=== PATIENT | male | born 1965 | race Caucasian/White ===

== ENCOUNTER 2020-06-25 17:32 | Outpatient (REF) | payer MEDICAID, SELFPAY | END 2020-06-25 17:33 | disposition home or self-care (01) | LOC: HO.LAB 17:32 | PROVIDERS: Visit Provider Internal Medicine | DX: Z20.828 Contact with and (suspected) exposure to other viral communicable diseases (principal) | CPT/HCPCS: C9803; U0003 ==

== ENCOUNTER 2021-01-09 12:20 | Inpatient (IN) | payer MEDICAID, SELFPAY ==
[2021-01-09] VITALS (11 sets, daily range): BP systolic 90–136; BP diastolic 52–78; PULSE 75–150; RESP 16–20; TEMP 36.9–37.1; O2SAT 94–98; BMI 28.7
--- NOTE | ~2021-01-09 | CT_ITS ---
EXAMINATION: CT HEAD WITHOUT CONTRAST CLINICAL INFORMATION: Clinical the posterior liver disease. Evaluate for hemorrhage. COMPARISON: Previous head CT most recent September 2019 TECHNIQUE: Contiguous axial imaging was performed from the skull base to vertex without intravenous administration of contrast. This CT examination was performed using dose optimization techniques as appropriate, variously including the following: *Automated exposure control *Adjustment of mA and/or kV according to patient size (this includes techniques or standardized protocols for targeted exams where dose is matched to indication/reason for exam; i.e. extremities or head) *Use of iterative reconstruction technique DLP: 7-8 mGy-cm FINDINGS: There is no evidence of acute intracranial hemorrhage or territorial infarction. No abnormal mass effect or midline shift is seen. Ly to white matter differentiation is well preserved. No extra-axial fluid collections are identified. The ventricles are normal in size. There is no abnormal attenuation within the brain parenchyma. The osseous structures are normal. There is mild inflammatory change seen in sphenoid sinus. The mastoid air cells and visualized portions of the paranasal sinuses are otherwise clear. There is soft tissue swelling adjacent to the left posterior parietal bone.. CT/CT head/brain wo con IMPRESSION: No acute intracranial findings. Soft tissue swelling adjacent to the left posterior parietal bone and mild inflammatory changes in the sphenoid sinus.
--- NOTE | ~2021-01-09 | CT_ITS ---
EXAMINATION: CT ABDOMEN AND PELVIS WITH CONTRAST CLINICAL INFORMATION: Painless jaundice. Rule out common bile duct obstruction versus mass COMPARISON: November 03, 2016 TECHNIQUE: Multidetector volumetric images were obtained from the superior aspect of the liver through the pubic symphysis following administration 85 mL of Omnipaque 350 intravenous contrast. Sagittal and coronal reformatted images were obtained on the technologist's workstation. Oral contrast: No This CT examination was performed using dose optimization techniques as appropriate, variously including the following: *Automated exposure control *Adjustment of mA and/or kV according to patient size (this includes techniques or standardized protocols for targeted exams where dose is matched to indication/reason for exam; i.e. extremities or head) *Use of iterative reconstruction technique DLP: 668 mGy-cm FINDINGS: LUNG BASES: There is some linear scar right lower lobe. No pleural or pericardial effusion. Heart normal size. Coronary artery calcification present. LIVER, GALLBLADDER, AND BILIARY TREE: The liver is normal in size, shape, and attenuation. No focal hepatic lesion or biliary ductal dilatation is present. There is gallbladder wall thickening with pericholecystic haziness within the fat. No definite gallbladder calculi identified. No radiopaque density within the common bile duct is seen. The common bile duct is not dilated distally. PANCREAS: There has been fatty involution of the pancreas. No suspicious pancreatic mass is identified. No pancreatic duct dilatation. SPLEEN: Unremarkable. ADRENAL GLANDS: Unremarkable. KIDNEYS AND URETERS: There are bilateral renal cysts largest within the upper pole of the left kidney measuring 2.2 cm in diameter. No renal calculi identified. Ureters appear unremarkable without evidence of obstructive uropathy. No suspicious focal mass is seen. There is mild perinephric stranding. BLADDER: Unremarkable. GASTROINTESTINAL TRACT: No free air identified. There is a small amount of free fluid seen in the cul-de-sac. No dilated loops of large or small bowel are evident. There is left colonic diverticulosis without evidence of acute diverticulitis. No pericolonic inflammatory changes appreciated. The appendix appears unremarkable. ABDOMINAL WALL: No significant hernia is appreciated. LYMPH NODES: No lymphadenopathy appreciated. VASCULAR: Unremarkable. PELVIC VISCERA: Small amount of free pelvic fluid. Prominent prostate gland with calcifications. OSSEOUS STRUCTURES: No suspicious destructive bony lesions identified. Old posterior fracture of the right 11th rib is seen. Multilevel degenerative disc disease is present. There is a superior endplate compression fracture without significant loss of height involving the T12 vertebral body. There is degenerative change of the sacroiliac joints bilaterally. CT/CT abdomen pelvis w con IMPRESSION: Findings consistent with acute cholecystitis. No common bile duct dilatation and no pancreatic head mass appreciated.
--- NOTE | 2021-01-09 13:00 | ED.GENADULT ---
HPI - General Adult General Chief complaint: General Medical Stated complaint: Unspecified Jaundice Time Seen by Provider: 01/09/21 12:36 Source: patient Mode of arrival: ambulatory Limitations: no limitations History of Present Illness HPI narrative: 55-year-old male with a past medical history of hypertension here with complaints of yellowing of the skin. The patient noted Wednesday morning when he woke up that his skin appeared yellow. He tells me he has also had dark urine. He has been hydrating at home thinking this would improve his jaundice. He went to urgent care today due to persistent symptoms and was referred to the emergency department. He denies any abdominal pain, vomiting, fevers, chills. He does drink socially 2-3 martinis on the weekends. He does not drink during the week normally. No substance use. No IV drug abuse. No a Tylenol use. No recent travel or recent illness. No sick contact. Related Data Home Medications Medication Instructions Recorded Confirmed ascorbic [id number] 1 ea PO DAILY 01/09/21 01/09/21 [Emergen-C] Allergies Allergy/AdvReac Type Severity Reaction Status Date / Time No Known Allergies Allergy Verified 01/09/21 12:30 [No Known Allergies*] Review of Systems Review of Systems: Yes all other systems are reviewed and are negative Constitutional: Constitutional: Reports no additional constitutional complaints, Denies body ache(s), Denies chills, Denies fever(s), Denies headache(s) and Denies weakness Eyes: Eyes: Reports no additional eye complaints and Denies change in vision ENT: Reports system reviewed and no additional complaints, except as documented, Denies dizziness, Denies headache(s), Denies nasal congestion, Denies nasal discharge and Denies neck pain Cardiovascular: Cardiovascular: Reports no additional cardiovascular complaints, Denies chest pain, Denies leg edema and Denies dyspnea Respiratory: Respiratory: Reports no additional respiratory complaints, Denies cough and Denies dyspnea Gastrointestinal: Gastrointestinal: Reports no additional gastrointestinal complaints, Denies abdominal pain, Denies diarrhea, Denies nausea and Denies vomiting Genitourinary: Genitourinary: Denies urinary incontinence Musculoskeletal: Musculoskeletal: Reports no additional musculoskeletal complaints, Denies back pain, Denies arthralgias, Denies joint swelling, Denies neck pain, Denies numbness and Denies tingling Integumentary/Breasts: Skin/Breast: Reports system reviewed and no additional complaints, except as docu, Denies rash and Reports jaundice Neurologic: Reports system reviewed and no additional complaints, except as documented, Denies Abnormal speech present, Denies dizziness, Denies headache(s), Denies numbness, Denies tingling and Denies weakness PMFSH Past Medical History Attestation statement: The following information was validated with the patient. Source: old records reviewed and nursing notes reviewed Medical History (Updated 01/09/21 @ 20:57 by Danuta Scott NP) HTN (hypertension) Jaundice Social History Social History Alcohol intake: current Alcohol intake frequency: 0-2 drinks per day Alcohol type: beer, wine, hard liquor and other Patient Tobacco Use Status: Never used Tobacco Smoked in Last 30 Days: No Use of substances other than those prescribed or required for medical reasons: No Advance Directives: No Advance Directives Information Provided: No Physical Exam Vital Signs: Vital Signs: Last Vital Signs Temp 98.5 F 01/09/21 16:43 Pulse 147 H 01/09/21 17:42 Resp 17 01/09/21 17:42 BP 107/65 01/09/21 20:02 Pulse Ox 97 01/09/21 17:42 Body Mass Index 28.7 Const: General: cooperative, healthy appearing, comfortable and no acute distress Orientation/consciousness: patient oriented x3 Limitations: no limitations HENMT: Head: Yes normal to inspection Ears: hearing grossly normal bilaterally General nose exam: Normal external nose present Face and sinus: Yes normal facial exam Mouth: Normal oral and palatal mucosa present Throat: Yes posterior oropharynx normal Eyes: Other: Left pupil 4mm Right pupill 3mm Reactive General: appearance normal, both eyes and all related structures Visual Beltre: normal visual beltre by confrontation Alignment and Position: alignment normal Periorbital: periorbital findings normal Eyelids: Yes eyelids normal Sclerae: scleral abnormal (icterus bilaterally ) Corneas: corneas normal EOM: EOMs intact bilaterally Direct Ophthalmoscopy: normal light reflex Neck: Neck: Yes normal visual inspection Chest: Chest palpation & inspection: normal inspection of the chest Resp: Effort & Inspection: normal respiratory effort Auscultation: clear to auscultation bilaterally Cardio: Rate: regular rate Rhythm: regular rhythm Peripheral pulses: Peripheral pulses 2+ throughout GI: Inspection: Yes normal to inspection Palpation (GI): Soft to palpation and nontender Auscultation: normal bowel sounds Back/Spine/Pelvis: Thoracic/Lumbar Spine: thoracic and lumbar spine normal to inspection Skin: General skin exam: jaundice Neuro: General: patient oriented x3, no focal motor deficits and normal sensation to monofilament Cognition (Neuro): normal cognition Speech: No Abnormal speech present Gait exam (Neuro): Normal gait present Motor exam (neuro): 5/5 motor strength present throughout Extrem: General: Yes normal to inspection Course Course Course Narrative: 55-year-old male here with painless jaundice x several days. On arrival the patient has scleral icterus and jaundice skin. No abdominal pain. He also has unequal pupils. He denies any headache with normal neurological exam. Will need labs, UA, COVID screen, CT A/P, CT head. 1530- labs show mild microcytic anemia, thrombocytopenia, hyponatremia, hypochloremia, elevated lactic acid, acute liver failure with a total bilirubin of 29.1 and a direct bilirubin of 20.4 with ammonia of 58. added on serum osmolality, urine osmolality and lytes. Patient tells me he has been drinking liters of fluid this week as he thought this would improve his jaundice appearance. Likely hypervolemic hyponatremia. CT of abdomen shows acute cholecystitis. No common bile duct dilation and no pancreatic mass appreciated. Discussed with Dr. Blackmon who does not think this is acute cholecystitis as patient has no pain. Recommended d/w with GI. Call out to discuss with Dr Rome. 1545- patient is tachycardic with no fever. He has a mild tremor but no hypertension or other symptoms concerning for alcohol withdrawal. Check EKG. 1600- EKG shows sinus tachycardia with a rate of 147. Unable to visualize P-waves in all leads. ?atrial flutter. Blood pressure is stable. Attempted vagal maneuvers with no success. Will give 10 mg IV Cardizem and reassess. 1630- continued tachycardia with rates up to 150. Discussed with Dr. Irvin. Plan for repeat 10 mg IV Cardizem. 1700- continued tachycardia. Repeat EKG does show atrial flutter with a variable AV block with heart rate 133. patient did have a single blood pressure of 93/60. He received a 500 mL normal saline bolus and a repeat dose of 10 mg of IV Cardizem was ordered. Will start Cardizem drip and monitor. 1800-Discussed patient with Dr. Rome. Likely alcoholic hepatitis. Recommended obtaining an MRI of the abdomen on admission. Pending admission to medicine service. 1899-Persistent a-flutter with rates 140-150's on monitoring tech. patient asymptomatic. stable blood pressure. currently on 15 milligrams/hour of Cardizem. Discussed with Dr. Rojas. Recommended continuing Cardizem. Does not recommend any additional agents. 1919-Discussed with Dr Rosas from medicine service who accepted patient. Maintenance fluids ordered. K PO replacement ordered. D/t multiple system involvement with tachycardia at this time infection cannot be ruled out. Blood cultures and lactic acid have been completed. Will order empiric antibiotics. Medical Decision Making Medical Records Medical records reviewed: Yes I reviewed the patient's medical records. Lab Data Lab results reviewed: Yes I reviewed the patient's lab results. Result diagrams: 01/09/21 13:47 01/09/21 16:54 Labs: Lab Results 01/09/21 01/09/21 01/09/21 Range/Units 13:47 13:47 13:47 WBC 8.0 (4.8-10.8) X10*3/uL RBC 3.60 L (4.60-5.80) X10*6/uL Hgb 13.2 L (14.0-18.0) g/dl Hct 37.2 L (42-52) % MCV 103.3 H (80-98) fL MCH 36.7 H (27.0-33.0) pg MCHC 35.5 (31.0-36.0) g/dl RDW 16.4 H (11.0-16.0) % Plt Count 153 L (160-400) X10*3/uL MPV 11.8 (9.4-12.4) fL Immature Gran % (Auto) 2.1 H (0.0-0.4) % Neut % (Auto) 66.9 (45-73) % Lymph % (Auto) 18.7 L (20-40) % [place] % (Auto) 11.5 H (2-11) % Eos % (Auto) 0.3 (0-4) % Baso % (Auto) 0.5 (0-2) % Lymph # (Auto) 1.5 (1.2-4.9) X10*3/uL [place] # (Auto) 0.9 (0.1-1.2) X10*3/uL Eos # (Auto) 0.0 (0.0-0.4) X10*3/uL Baso # (Auto) 0.0 (0.0-0.2) X10*3/uL Abs Immat Gran (auto) 0.17 H (0.00-0.03) X10*3/uL Absolute Neuts (auto) 5.3 (2.0-8.3) X10*3/uL Absolute Nucleated RBC 0.000 (0.0-0.012) X10*3/uL Nucleated RBC % (auto) 0.0 (0.0-0.2) /100WBC PT 13.1 H (9.9-13.0) SEC INR 1.2 H (0.9-1.1) Sodium 128 L (135-145) mmol/L Potassium 3.5 (3.3-5.1) mmol/L Chloride 89 L (96-108) mmol/L Carbon Dioxide 27 (22-29) mmol/L Anion Gap 16 (12-20) BUN 2 L (9-16) mg/dL Creatinine 1.02 (0.5-1.4) mg/dL Estim Creat Clear Calc 94.8 Estimated GFR > 60 Random Glucose 171 H (60-115) mg/dL Osmolality (281-305) mosm/kg Lactic Acid (0.5-2.0) mmol/L Lactic Acid Fup @ 2Hr (0.5-2.0) mmol/L Calcium 8.9 (8.4-10.2) mg/dL Magnesium 1.8 (1.6-2.6) mg/dL Total Bilirubin 29.1 H (0.0-1.0) mg/dL Direct Bilirubin 20.4 H (0.0-0.5) mg/dL AST 246 H (5-37) U/L ALT 65 H (0-40) U/L Alkaline Phosphatase 570 H (39-117) U/L Ammonia (13-55) umol/L Troponin I High Sens (<3.5-35.0) ng/L Total Protein 5.6 L (6.5-8.0) g/dL Albumin 2.8 L (3.5-5.0) g/dL Lipase 14 (8-78) U/L Urine Color Urine Appearance Urine pH (5.0-8.0) Ur Specific [place] (1.005-1.025) Urine Protein (NEG-TRACE) MG/DL Urine Glucose (UA) (NEG) MG/DL Urine Ketones (NEG) MG/DL Urine Blood (NEG) Urine Nitrite (NEG) Ur Leukocyte Esterase (NEG) Urine Osmolality (373-1093) mosm/kg Ur Random Sodium mmol/L Urine Creatinine mg/dL Salicylates (15-30) mg/dL Urine Opiates Screen (Not Detect) Acetaminophen (<30) mcg/mL Ur Barbiturates Screen (Not Detect) Ur Phencyclidine Scrn (Not Detect) Ur Amphetamines Screen (Not Detect) U Benzodiazepines Scrn (Not Detect) Urine Cocaine Screen (Not Detect) U Marijuana (THC) Screen (Not Detect) Ethyl Alcohol mg/dL COVID-19 (GAUTAM) (Negative) COVID-19 Clin Com 01/09/21 01/09/21 01/09/21 Range/Units 13:47 13:47 13:47 WBC (4.8-10.8) X10*3/uL RBC (4.60-5.80) X10*6/uL Hgb (14.0-18.0) g/dl Hct (42-52) % MCV (80-98) fL MCH (27.0-33.0) pg MCHC (31.0-36.0) g/dl RDW (11.0-16.0) % Plt Count (160-400) X10*3/uL MPV (9.4-12.4) fL Immature Gran % (Auto) (0.0-0.4) % Neut % (Auto) (45-73) % Lymph % (Auto) (20-40) % [place] % (Auto) (2-11) % Eos % (Auto) (0-4) % Baso % (Auto) (0-2) % Lymph # (Auto) (1.2-4.9) X10*3/uL [place] # (Auto) (0.1-1.2) X10*3/uL Eos # (Auto) (0.0-0.4) X10*3/uL Baso # (Auto) (0.0-0.2) X10*3/uL Abs Immat Gran (auto) (0.00-0.03) X10*3/uL Absolute Neuts (auto) (2.0-8.3) X10*3/uL Absolute Nucleated RBC (0.0-0.012) X10*3/uL Nucleated RBC % (auto) (0.0-0.2) /100WBC PT (9.9-13.0) SEC INR (0.9-1.1) Sodium (135-145) mmol/L Potassium (3.3-5.1) mmol/L Chloride (96-108) mmol/L Carbon Dioxide (22-29) mmol/L Anion Gap (12-20) BUN (9-16) mg/dL Creatinine (0.5-1.4) mg/dL Estim Creat Clear Calc Estimated GFR Random Glucose (60-115) mg/dL Osmolality (281-305) mosm/kg Lactic Acid 2.8 H* (0.5-2.0) mmol/L Lactic Acid Fup @ 2Hr (0.5-2.0) mmol/L Calcium (8.4-10.2) mg/dL Magnesium (1.6-2.6) mg/dL Total Bilirubin (0.0-1.0) mg/dL Direct Bilirubin (0.0-0.5) mg/dL AST (5-37) U/L ALT (0-40) U/L Alkaline Phosphatase (39-117) U/L Ammonia (13-55) umol/L Troponin I High Sens (<3.5-35.0) ng/L Total Protein (6.5-8.0) g/dL Albumin (3.5-5.0) g/dL Lipase (8-78) U/L Urine Color Urine Appearance Urine pH (5.0-8.0) Ur Specific [place] (1.005-1.025) Urine Protein (NEG-TRACE) MG/DL Urine Glucose (UA) (NEG) MG/DL Urine Ketones (NEG) MG/DL Urine Blood (NEG) Urine Nitrite (NEG) Ur Leukocyte Esterase (NEG) Urine Osmolality (373-1093) mosm/kg Ur Random Sodium mmol/L Urine Creatinine mg/dL Salicylates < 5.0 L (15-30) mg/dL Urine Opiates Screen (Not Detect) Acetaminophen < 1 (<30) mcg/mL Ur Barbiturates Screen (Not Detect) Ur Phencyclidine Scrn (Not Detect) Ur Amphetamines Screen (Not Detect) U Benzodiazepines Scrn (Not Detect) Urine Cocaine Screen (Not Detect) U Marijuana (THC) Screen (Not Detect) Ethyl Alcohol < 10 mg/dL COVID-19 (GAUTAM) (Negative) COVID-19 Clin Com 01/09/21 01/09/21 01/09/21 Range/Units 13:47 13:47 14:04 WBC (4.8-10.8) X10*3/uL RBC (4.60-5.80) X10*6/uL Hgb (14.0-18.0) g/dl Hct (42-52) % MCV (80-98) fL MCH (27.0-33.0) pg MCHC (31.0-36.0) g/dl RDW (11.0-16.0) % Plt Count (160-400) X10*3/uL MPV (9.4-12.4) fL Immature Gran % (Auto) (0.0-0.4) % Neut % (Auto) (45-73) % Lymph % (Auto) (20-40) % [place] % (Auto) (2-11) % Eos % (Auto) (0-4) % Baso % (Auto) (0-2) % Lymph # (Auto) (1.2-4.9) X10*3/uL [place] # (Auto) (0.1-1.2) X10*3/uL Eos # (Auto) (0.0-0.4) X10*3/uL Baso # (Auto) (0.0-0.2) X10*3/uL Abs Immat Gran (auto) (0.00-0.03) X10*3/uL Absolute Neuts (auto) (2.0-8.3) X10*3/uL Absolute Nucleated RBC (0.0-0.012) X10*3/uL Nucleated RBC % (auto) (0.0-0.2) /100WBC PT (9.9-13.0) SEC INR (0.9-1.1) Sodium (135-145) mmol/L Potassium (3.3-5.1) mmol/L Chloride (96-108) mmol/L Carbon Dioxide (22-29) mmol/L Anion Gap (12-20) BUN (9-16) mg/dL Creatinine (0.5-1.4) mg/dL Estim Creat Clear Calc Estimated GFR Random Glucose (60-115) mg/dL Osmolality 278 L (281-305) mosm/kg Lactic Acid (0.5-2.0) mmol/L Lactic Acid Fup @ 2Hr (0.5-2.0) mmol/L Calcium (8.4-10.2) mg/dL Magnesium (1.6-2.6) mg/dL Total Bilirubin (0.0-1.0) mg/dL Direct Bilirubin (0.0-0.5) mg/dL AST (5-37) U/L ALT (0-40) U/L Alkaline Phosphatase (39-117) U/L Ammonia (13-55) umol/L Troponin I High Sens (<3.5-35.0) ng/L Total Protein (6.5-8.0) g/dL Albumin (3.5-5.0) g/dL Lipase (8-78) U/L Urine Color YELLOW Urine Appearance CLEAR Urine pH 6.0 (5.0-8.0) Ur Specific [place] <= 1.005 (1.005-1.025) Urine Protein NEG (NEG-TRACE) MG/DL Urine Glucose (UA) NEG (NEG) MG/DL Urine Ketones NEG (NEG) MG/DL Urine Blood NEG (NEG) Urine Nitrite NEG (NEG) Ur Leukocyte Esterase NEG (NEG) Urine Osmolality (373-1093) mosm/kg Ur Random Sodium mmol/L Urine Creatinine mg/dL Salicylates (15-30) mg/dL Urine Opiates Screen (Not Detect) Acetaminophen (<30) mcg/mL Ur Barbiturates Screen (Not Detect) Ur Phencyclidine Scrn (Not Detect) Ur Amphetamines Screen (Not Detect) U Benzodiazepines Scrn (Not Detect) Urine Cocaine Screen (Not Detect) U Marijuana (THC) Screen (Not Detect) Ethyl Alcohol mg/dL COVID-19 (GAUTAM) Negative (Negative) COVID-19 Clin Com See Note 01/09/21 01/09/21 01/09/21 Range/Units 14:04 14:04 14:04 WBC (4.8-10.8) X10*3/uL RBC (4.60-5.80) X10*6/uL Hgb (14.0-18.0) g/dl Hct (42-52) % MCV (80-98) fL MCH (27.0-33.0) pg MCHC (31.0-36.0) g/dl RDW (11.0-16.0) % Plt Count (160-400) X10*3/uL MPV (9.4-12.4) fL Immature Gran % (Auto) (0.0-0.4) % Neut % (Auto) (45-73) % Lymph % (Auto) (20-40) % [place] % (Auto) (2-11) % Eos % (Auto) (0-4) % Baso % (Auto) (0-2) % Lymph # (Auto) (1.2-4.9) X10*3/uL [place] # (Auto) (0.1-1.2) X10*3/uL Eos # (Auto) (0.0-0.4) X10*3/uL Baso # (Auto) (0.0-0.2) X10*3/uL Abs Immat Gran (auto) (0.00-0.03) X10*3/uL Absolute Neuts (auto) (2.0-8.3) X10*3/uL Absolute Nucleated RBC (0.0-0.012) X10*3/uL Nucleated RBC % (auto) (0.0-0.2) /100WBC PT (9.9-13.0) SEC INR (0.9-1.1) Sodium (135-145) mmol/L Potassium (3.3-5.1) mmol/L Chloride (96-108) mmol/L Carbon Dioxide (22-29) mmol/L Anion Gap (12-20) BUN (9-16) mg/dL Creatinine (0.5-1.4) mg/dL Estim Creat Clear Calc Estimated GFR Random Glucose (60-115) mg/dL Osmolality (281-305) mosm/kg Lactic Acid (0.5-2.0) mmol/L Lactic Acid Fup @ 2Hr (0.5-2.0) mmol/L Calcium (8.4-10.2) mg/dL Magnesium (1.6-2.6) mg/dL Total Bilirubin (0.0-1.0) mg/dL Direct Bilirubin (0.0-0.5) mg/dL AST (5-37) U/L ALT (0-40) U/L Alkaline Phosphatase (39-117) U/L Ammonia (13-55) umol/L Troponin I High Sens (<3.5-35.0) ng/L Total Protein (6.5-8.0) g/dL Albumin (3.5-5.0) g/dL Lipase (8-78) U/L Urine Color Urine Appearance Urine pH (5.0-8.0) Ur Specific [place] (1.005-1.025) Urine Protein (NEG-TRACE) MG/DL Urine Glucose (UA) (NEG) MG/DL Urine Ketones (NEG) MG/DL Urine Blood (NEG) Urine Nitrite (NEG) Ur Leukocyte Esterase (NEG) Urine Osmolality 47 L (373-1093) mosm/kg Ur Random Sodium < 20.0 mmol/L Urine Creatinine 24.52 mg/dL Salicylates (15-30) mg/dL Urine Opiates Screen Not Detected (Not Detect) Acetaminophen (<30) mcg/mL Ur Barbiturates Screen Not Detected (Not Detect) Ur Phencyclidine Scrn Not Detected (Not Detect) Ur Amphetamines Screen Not Detected (Not Detect) U Benzodiazepines Scrn Not Detected (Not Detect) Urine Cocaine Screen Not Detected (Not Detect) U Marijuana (THC) Screen Not Detected (Not Detect) Ethyl Alcohol mg/dL COVID-19 (GAUTAM) (Negative) COVID-19 Clin Com 01/09/21 01/09/21 01/09/21 Range/Units 14:15 16:54 16:54 WBC (4.8-10.8) X10*3/uL RBC (4.60-5.80) X10*6/uL Hgb (14.0-18.0) g/dl Hct (42-52) % MCV (80-98) fL MCH (27.0-33.0) pg MCHC (31.0-36.0) g/dl RDW (11.0-16.0) % Plt Count (160-400) X10*3/uL MPV (9.4-12.4) fL Immature Gran % (Auto) (0.0-0.4) % Neut % (Auto) (45-73) % Lymph % (Auto) (20-40) % [place] % (Auto) (2-11) % Eos % (Auto) (0-4) % Baso % (Auto) (0-2) % Lymph # (Auto) (1.2-4.9) X10*3/uL [place] # (Auto) (0.1-1.2) X10*3/uL Eos # (Auto) (0.0-0.4) X10*3/uL Baso # (Auto) (0.0-0.2) X10*3/uL Abs Immat Gran (auto) (0.00-0.03) X10*3/uL Absolute Neuts (auto) (2.0-8.3) X10*3/uL Absolute Nucleated RBC (0.0-0.012) X10*3/uL Nucleated RBC % (auto) (0.0-0.2) /100WBC PT (9.9-13.0) SEC INR (0.9-1.1) Sodium 130 L (135-145) mmol/L Potassium 3.0 L (3.3-5.1) mmol/L Chloride 95 L (96-108) mmol/L Carbon Dioxide 25 (22-29) mmol/L Anion Gap 13 (12-20) BUN 2 L (9-16) mg/dL Creatinine 0.75 (0.5-1.4) mg/dL Estim Creat Clear Calc 129.0 Estimated GFR > 60 Random Glucose 115 (60-115) mg/dL Osmolality (281-305) mosm/kg Lactic Acid (0.5-2.0) mmol/L Lactic Acid Fup @ 2Hr 1.3 (0.5-2.0) mmol/L Calcium 8.2 L D (8.4-10.2) mg/dL Magnesium (1.6-2.6) mg/dL Total Bilirubin (0.0-1.0) mg/dL Direct Bilirubin (0.0-0.5) mg/dL AST (5-37) U/L ALT (0-40) U/L Alkaline Phosphatase (39-117) U/L Ammonia 58 H (13-55) umol/L Troponin I High Sens (<3.5-35.0) ng/L Total Protein (6.5-8.0) g/dL Albumin (3.5-5.0) g/dL Lipase (8-78) U/L Urine Color Urine Appearance Urine pH (5.0-8.0) Ur Specific [place] (1.005-1.025) Urine Protein (NEG-TRACE) MG/DL Urine Glucose (UA) (NEG) MG/DL Urine Ketones (NEG) MG/DL Urine Blood (NEG) Urine Nitrite (NEG) Ur Leukocyte Esterase (NEG) Urine Osmolality (373-1093) mosm/kg Ur Random Sodium mmol/L Urine Creatinine mg/dL Salicylates (15-30) mg/dL Urine Opiates Screen (Not Detect) Acetaminophen (<30) mcg/mL Ur Barbiturates Screen (Not Detect) Ur Phencyclidine Scrn (Not Detect) Ur Amphetamines Screen (Not Detect) U Benzodiazepines Scrn (Not Detect) Urine Cocaine Screen (Not Detect) U Marijuana (THC) Screen (Not Detect) Ethyl Alcohol mg/dL COVID-19 (GAUTAM) (Negative) COVID-19 Clin Com 01/09/21 Range/Units 16:54 WBC (4.8-10.8) X10*3/uL RBC (4.60-5.80) X10*6/uL Hgb (14.0-18.0) g/dl Hct (42-52) % MCV (80-98) fL MCH (27.0-33.0) pg MCHC (31.0-36.0) g/dl RDW (11.0-16.0) % Plt Count (160-400) X10*3/uL MPV (9.4-12.4) fL Immature Gran % (Auto) (0.0-0.4) % Neut % (Auto) (45-73) % Lymph % (Auto) (20-40) % [place] % (Auto) (2-11) % Eos % (Auto) (0-4) % Baso % (Auto) (0-2) % Lymph # (Auto) (1.2-4.9) X10*3/uL [place] # (Auto) (0.1-1.2) X10*3/uL Eos # (Auto) (0.0-0.4) X10*3/uL Baso # (Auto) (0.0-0.2) X10*3/uL Abs Immat Gran (auto) (0.00-0.03) X10*3/uL Absolute Neuts (auto) (2.0-8.3) X10*3/uL Absolute Nucleated RBC (0.0-0.012) X10*3/uL Nucleated RBC % (auto) (0.0-0.2) /100WBC PT (9.9-13.0) SEC INR (0.9-1.1) Sodium (135-145) mmol/L Potassium (3.3-5.1) mmol/L Chloride (96-108) mmol/L Carbon Dioxide (22-29) mmol/L Anion Gap (12-20) BUN (9-16) mg/dL Creatinine (0.5-1.4) mg/dL Estim Creat Clear Calc Estimated GFR Random Glucose (60-115) mg/dL Osmolality (281-305) mosm/kg Lactic Acid (0.5-2.0) mmol/L Lactic Acid Fup @ 2Hr (0.5-2.0) mmol/L Calcium (8.4-10.2) mg/dL Magnesium (1.6-2.6) mg/dL Total Bilirubin (0.0-1.0) mg/dL Direct Bilirubin (0.0-0.5) mg/dL AST (5-37) U/L ALT (0-40) U/L Alkaline Phosphatase (39-117) U/L Ammonia (13-55) umol/L Troponin I High Sens 13.5 (<3.5-35.0) ng/L Total Protein (6.5-8.0) g/dL Albumin (3.5-5.0) g/dL Lipase (8-78) U/L Urine Color Urine Appearance Urine pH (5.0-8.0) Ur Specific [place] (1.005-1.025) Urine Protein (NEG-TRACE) MG/DL Urine Glucose (UA) (NEG) MG/DL Urine Ketones (NEG) MG/DL Urine Blood (NEG) Urine Nitrite (NEG) Ur Leukocyte Esterase (NEG) Urine Osmolality (373-1093) mosm/kg Ur Random Sodium mmol/L Urine Creatinine mg/dL Salicylates (15-30) mg/dL Urine Opiates Screen (Not Detect) Acetaminophen (<30) mcg/mL Ur Barbiturates Screen (Not Detect) Ur Phencyclidine Scrn (Not Detect) Ur Amphetamines Screen (Not Detect) U Benzodiazepines Scrn (Not Detect) Urine Cocaine Screen (Not Detect) U Marijuana (THC) Screen (Not Detect) Ethyl Alcohol mg/dL COVID-19 (GAUTAM) (Negative) COVID-19 Clin Com Imaging Data CT scan - head: Attestation: I personally reviewed and interpreted this imaging study as follows: Radiologist's impression: [address] Scan ReportSigned Patient: Abner Galvan [facility]#: [id number]: 1965Acct:[id number]/Sex: 55 / MADM Date: 01/09/21Loc: [address] Dr: Ordering Physician: DANUTA SCOTT NP Date of Service: 01/09/21 Procedure(s): CT head/brain wo con Accession Number(s): [id number] cc: DANUTA SCOTT NP~ EXAMINATION: CT HEAD WITHOUT CONTRAST CLINICAL INFORMATION: Clinical the posterior liver disease. Evaluate for hemorrhage. COMPARISON: Previous head CT most recent September 2019 TECHNIQUE: Contiguous axial imaging was performed from the skull base to vertex without intravenous administration of contrast. This CT examination was performed using dose optimization techniques as appropriate, variously including the following: *Automated exposure control *Adjustment of mA and/or kV according to patient size (this includes techniques or standardized protocols for targeted exams where dose is matched to indication/reason for exam; i.e. extremities or head) *Use of iterative reconstruction technique DLP: 7-8 mGy-cm FINDINGS: There is no evidence of acute intracranial hemorrhage or territorial infarction. No abnormal mass effect or midline shift is seen. Ly to white matter differentiation is well preserved. No extra-axial fluid collections are identified. The ventricles are normal in size. There is no abnormal attenuation within the brain parenchyma. The osseous structures are normal. There is mild inflammatory change seen in sphenoid sinus. The mastoid air cells and visualized portions of the paranasal sinuses are otherwise clear. There is soft tissue swelling adjacent to the left posterior parietal bone.. CT/CT head/brain wo con IMPRESSION: No acute intracranial findings. Soft tissue swelling adjacent to the left posterior parietal bone and mild inflammatory changes in the sphenoid sinus. CT scan - abdomen: Attestation: I personally reviewed and interpreted this imaging study as follows: Radiologist's impression: FINDINGS: LUNG BASES: There is some linear scar right lower lobe. No pleural or pericardial effusion. Heart normal size. Coronary artery calcification present. LIVER, GALLBLADDER, AND BILIARY TREE: The liver is normal in size, shape, and attenuation. No focal hepatic lesion or biliary ductal dilatation is present. There is gallbladder wall thickening with pericholecystic haziness within the fat. No definite gallbladder calculi identified. No radiopaque density within the common bile duct is seen. The common bile duct is not dilated distally. PANCREAS: There has been fatty involution of the pancreas. No suspicious pancreatic mass is identified. No pancreatic duct dilatation. SPLEEN: Unremarkable. ADRENAL GLANDS: Unremarkable. KIDNEYS AND URETERS: There are bilateral renal cysts largest within the upper pole of the left kidney measuring 2.2 cm in diameter. No renal calculi identified. Ureters appear unremarkable without evidence of obstructive uropathy. No suspicious focal mass is seen. There is mild perinephric stranding. BLADDER: Unremarkable. GASTROINTESTINAL TRACT: No free air identified. There is a small amount of free fluid seen in the cul-de-sac. No dilated loops of large or small bowel are evident. There is left colonic diverticulosis without evidence of acute diverticulitis. No pericolonic inflammatory changes appreciated. The appendix appears unremarkable. ABDOMINAL WALL: No significant hernia is appreciated. LYMPH NODES: No lymphadenopathy appreciated. VASCULAR: Unremarkable. PELVIC VISCERA: Small amount of free pelvic fluid. Prominent prostate gland with calcifications. OSSEOUS STRUCTURES: No suspicious destructive bony lesions identified. Old posterior fracture of the right 11th rib is seen. Multilevel degenerative disc disease is present. There is a superior endplate compression fracture without significant loss of height involving the T12 vertebral body. There is degenerative change of the sacroiliac joints bilaterally. CT/CT abdomen pelvis w con IMPRESSION: Findings consistent with acute cholecystitis. No common bile duct dilatation and no pancreatic head mass appreciated. ECG Data Attestation: I personally reviewed and interpreted this ECG as follows: Interpretation: St with rate 147, normal qrs, normal qtc repeat 1720- atrial flutter with variable AV block, rate 133, normal QRS, normal QT Critical Care Time Critical Care Time Critical Care Time: Yes Total Critical Care Time: 120 Attestation: Discussion with multiple specialists (cardiology, GI, surgery, medicine), multiple re-evaluations of heart rate with IV rate control medications given, lengthy discussion with patient. Discharge Plan Discharge Clinical Impression: Jaundice, Hepatitis, Acute hyponatremia Patient Disposition: Admitted As Inpatient
--- NOTE | 2021-01-09 13:14 | PHA.MEDREC ---
Pharmacy Consult ? Medication Reconciliation Pharmacy has completed the medication reconciliation. Patient states he was prescribed HTN meds about 5 years ago. However, he has since stopped taking them but he reports his BP is fine without the meds.
[2021-01-09] MEDS: 0.9 % Sodium Chloride 1,000 ML 999 ML IV (13:52)
[2021-01-09 14:00] LABS: MANUAL DIFF FLAG NO
[2021-01-09 14:02] LABS: Basophils Percent Auto 0.5 % (0-2); Eosinophils Percent Auto 0.3 % (0-4); Hematocrit 37.2 % (42-52); Hemoglobin 13.2 g/dl (14.0-18.0); Imm Gran Abs Auto 0.17 X10*3/uL (0.00-0.03); Imm Gran Pct Auto 2.1 % (0.0-0.4); Lymphocytes Absolute Auto 1.5 X10*3/uL (1.2-4.9); Lymphocytes Percent Auto 18.7 % (20-40); Mean Corpuscular HGB Conc 35.5 g/dl (31.0-36.0); Mean Corpuscular Hemoglobin 36.7 pg (27.0-33.0); Mean Corpuscular Volume 103.3 fL (80-98); Mean Platelet Volume 11.8 fL (9.4-12.4); Monocytes Absolute Auto 0.9 X10*3/uL (0.1-1.2); Monocytes Percent Auto 11.5 % (2-11); Neutrophils Absolute Auto 5.3 X10*3/uL (2.0-8.3); Neutrophils Percent Auto 66.9 % (45-73); Platelet Count 153 X10*3/uL (160-400); Red Cell Distribution Width 16.4 % (11.0-16.0)
[2021-01-09 14:14] LABS: INTERNATIONAL NORM RATIO 1.2 (0.9-1.1); Prothrombin Time 13.1 SEC (9.9-13.0)
[2021-01-09 14:17] LABS: Glucose Urine UA NEG (NEG); Leukocyte Esterase Urine NEG (NEG); Nitrite Urine NEG (NEG); Specific Gravity - Urine <= 1.005 (1.005-1.025); Urine Blood NEG (NEG); Urine Ketones NEG (NEG); Urine Protein NEG (NEG-TRACE)
[2021-01-09 14:20] LABS: Lactic Acid 2.8 mmol/L (0.5-2.0)
[2021-01-09 14:21] LABS: Appearance Urine CLEAR; Color Urine YELLOW
[2021-01-09 14:27] LABS: COVID-19 Test Negative (Negative); IDNOW Serial# 9DD0AD1C
[2021-01-09 14:31] LABS: Ethanol < 10 mg/dL
[2021-01-09 14:35] LABS: Acetaminophen LAB < 1 mcg/mL (<30); Salicylate < 5.0 mg/dL (15-30)
[2021-01-09 14:37] LABS: Alanine Aminotransferase 65 U/L (0-40); Albumin Level 2.8 g/dL (3.5-5.0); Alkaline Phosphatase 570 U/L (39-117); Anion Gap 16 (12-20); Aspartate Amino Transferase 246 U/L (5-37); Blood Urea Nitrogen 2 mg/dL (9-16); Calcium 8.9 mg/dL (8.4-10.2); Carbon Dioxide 27 mmol/L (22-29); Chloride 89 mmol/L (96-108); Creatinine Clr Calc Pharmacy 94.8; Estimated Glomerular Filt Rate > 60; Glucose Random 171 mg/dL (60-115); Lipase 14 U/L (8-78); Potassium 3.5 mmol/L (3.3-5.1); Sodium 128 mmol/L (135-145); Total Protein 5.6 g/dL (6.5-8.0)
[2021-01-09 14:44] LABS: Amphetamine Screen Urine Not Detected (Not Detect); Barbiturates, Urine Not Detected (Not Detect); Benzodiazepines Screen Urine Not Detected (Not Detect); Cannabinoid Screen Urine Not Detected (Not Detect); Cocaine Screen Urine Not Detected (Not Detect); Opiate Screen Urine Not Detected (Not Detect); Phencyclidine Screen Urine Not Detected (Not Detect)
[2021-01-09 14:56] LABS: Bilirubin Direct 20.4 mg/dL (0.0-0.5); Bilirubin Total 29.1 mg/dL (0.0-1.0)
[2021-01-09 14:56] LABS: Ammonia 58 umol/L (13-55)
--- NOTE | 2021-01-09 15:00 | PC.NURSE ---
Report to Alek CROWDER
[2021-01-09 15:10] LABS: Magnesium 1.8 mg/dL (1.6-2.6)
[2021-01-09 15:10] LABS: Creatinine Urine 24.52 mg/dL; Sodium Urine Random < 20.0 mmol/L
[2021-01-09] MEDS: iohexoL 350 MG/ML 100 ML INFUS..BTL 85 ML IV (15:17)
[2021-01-09 15:23] LABS: Osmolality, Serum 278 mosm/kg (281-305)
[2021-01-09 15:24] LABS: Osmolality Urine 47 mosm/kg (373-1093)
[2021-01-09 15:53] LABS: Reflex Lactate? Lactic Acid Added
--- NOTE | 2021-01-09 16:01 | ECG_ITS ---
Test Reason : TACHYCARDIC Blood Pressure : / mmHG Vent. Rate : 147 BPM Atrial Rate : 147 BPM P-R Int : 142 ms QRS Dur : 110 ms QT Int : 342 ms P-R-T Axes : 081 021 -21 degrees QTc Int : 535 ms Atrial flutter with rapid rate Abnormal ECG When compared with ECG of 03-NOV-2016 18:58, Rhythm change Referred By: Brianna Corcoran Electronically Signed By:ALYCIA MALIK
[2021-01-09] MEDS: dilTIAZem HCL 50 MG/10 ML VIAL 10 MG IVPUSH ×3 (16:32→17:32)
[2021-01-09] MEDS: 0.9 % Sodium Chloride 500 ML 999 ML IV (17:06)
--- NOTE | 2021-01-09 17:11 | ECG_ITS ---
Test Reason : REPEAT Blood Pressure : / mmHG Vent. Rate : 133 BPM Atrial Rate : 300 BPM P-R Int : 000 ms QRS Dur : 108 ms QT Int : 346 ms P-R-T Axes : 270 048 059 degrees QTc Int : 514 ms Atrial flutter with variable A-V block Abnormal ECG When compared with ECG of 09-JAN-2021 16:07, Improved rate Referred By: Brianna Corcoran Electronically Signed By:ALYCIA MALIK
--- NOTE | 2021-01-09 17:29 | P.CONGS_ITS ---
History of Present Illness Consult details Consult date: 01/09/21 Narrative: 55-year-old male who came to the emergency room today because of what he describes as being yellow . He admits to being call drinker. He says he had been drinking a lot last Wednesday which was 5 days prior to admission. He said he woke up the following day and noticed himself to be very yellow. He says that he did not seek any medical attention until today. He says he thought that he was just dehydrated . He denies any abdominal pain. He denies any nausea or vomiting. His CAT scan had shown some gallbladder wall with thickening suggestive of cholecystitis so I was consulted. He denies any frequent use of Tylenol. Review of Systems Constitutional: Constitutional: Denies chills, Denies fever(s) and Reports malaise Cardiovascular: Cardiovascular: Denies chest pain, Denies dyspnea and Denies dyspnea on exertion Respiratory: Respiratory: Denies cough, Denies dyspnea and Denies dyspnea on exertion Gastrointestinal: Gastrointestinal: Denies hematochezia and Denies change in bowel habits Genitourinary: Genitourinary: Denies hematuria and Denies difficulty urinating Musculoskeletal: Musculoskeletal: Denies back pain and Denies limited range of motion Neurologic: Denies focal weakness and Denies convulsions Psychiatric: Psychiatric: Denies depression and Denies mood swings PMFSH Past Medical History Medical History (Updated 01/09/21 @ 17:34 by Faisal Blackmon MD) HTN (hypertension) Jaundice Social History Social History Alcohol intake: current Alcohol intake frequency: 0-2 drinks per day Alcohol type: beer, wine, hard liquor and other Patient Tobacco Use Status: Never used Tobacco Smoked in Last 30 Days: No Use of substances other than those prescribed or required for medical reasons: No Advance Directives: No Advance Directives Information Provided: No Meds Allergies Allergy/AdvReac Type Severity Reaction Status Date / Time No Known Allergies Allergy Verified 01/09/21 12:30 [No Known Allergies*] Active Medications: Current Medications Generic Name Dose Route Start Last Admin Trade Name Freq PRN Reason Stop Dose Admin Sodium Chloride 500 mls @ 999 mls/hr 01/09/21 17:03 01/09/21 17:06 Ns IV 01/09/21 17:33 999 mls/hr .Q31M STA Administration Diltiazem HCl 125 mg/ Sodium 125 mls @ 0 mls/hr 01/09/21 17:30 Chloride IVCONT .Q0M EDWIN Protocol Per Protocol Pharmacy Consult 1 each 01/09/21 13:00 Consult Rx Perform Med Rec MISCELLANE ONCE PRN Consult order Home Medications Medication Instructions Recorded Confirmed Last Taken Type ascorbic [id number] 1 ea PO DAILY 01/09/21 01/09/21 12/26/20 History [Emergen-C] Physical Exam Vital Signs: Vital Signs: Last Vital Signs Temp 98.5 F 01/09/21 16:43 Pulse 149 H 01/09/21 17:09 Resp 20 01/09/21 17:09 BP 92/66 01/09/21 17:09 Pulse Ox 95 01/09/21 17:09 Body Mass Index 28.7 Const: Other: Very jaundiced General: comfortable and no acute distress Orientation/consciousness: patient oriented x3 Eyes: Sclerae: scleral abnormal ( icteric) Neck: Neck: Yes no lymphadenopathy Resp: Auscultation: clear to auscultation bilaterally Cardio: Rhythm: regular rhythm GI: Other: no Wilkerson's sign Palpation (GI): Soft to palpation, nontender and no guarding Neuro: General: patient oriented x3 Results Labs Result diagrams: 01/09/21 13:47 01/09/21 13:47 Labs: Abnormal lab results 01/09/21 01/09/21 01/09/21 Range/Units 13:47 13:47 13:47 RBC 3.60 L (4.60-5.80) X10*6/uL Hgb 13.2 L (14.0-18.0) g/dl Hct 37.2 L (42-52) % MCV 103.3 H (80-98) fL MCH 36.7 H (27.0-33.0) pg RDW 16.4 H (11.0-16.0) % Plt Count 153 L (160-400) X10*3/uL Immature Gran % (Auto) 2.1 H (0.0-0.4) % Lymph % (Auto) 18.7 L (20-40) % Hendricks % (Auto) 11.5 H (2-11) % Abs Immat Gran (auto) 0.17 H (0.00-0.03) X10*3/uL PT 13.1 H (9.9-13.0) SEC INR 1.2 H (0.9-1.1) Sodium 128 L (135-145) mmol/L Chloride 89 L (96-108) mmol/L BUN 2 L (9-16) mg/dL Random Glucose 171 H (60-115) mg/dL Osmolality (281-305) mosm/kg Lactic Acid (0.5-2.0) mmol/L Total Bilirubin 29.1 H (0.0-1.0) mg/dL Direct Bilirubin 20.4 H (0.0-0.5) mg/dL AST 246 H (5-37) U/L ALT 65 H (0-40) U/L Alkaline Phosphatase 570 H (39-117) U/L Ammonia (13-55) umol/L Total Protein 5.6 L (6.5-8.0) g/dL Albumin 2.8 L (3.5-5.0) g/dL Urine Osmolality (373-1093) mosm/kg Salicylates (15-30) mg/dL 01/09/21 01/09/21 01/09/21 Range/Units 13:47 13:47 13:47 RBC (4.60-5.80) X10*6/uL Hgb (14.0-18.0) g/dl Hct (42-52) % MCV (80-98) fL MCH (27.0-33.0) pg RDW (11.0-16.0) % Plt Count (160-400) X10*3/uL Immature Gran % (Auto) (0.0-0.4) % Lymph % (Auto) (20-40) % [place] % (Auto) (2-11) % Abs Immat Gran (auto) (0.00-0.03) X10*3/uL PT (9.9-13.0) SEC INR (0.9-1.1) Sodium (135-145) mmol/L Chloride (96-108) mmol/L BUN (9-16) mg/dL Random Glucose (60-115) mg/dL Osmolality 278 L (281-305) mosm/kg Lactic Acid 2.8 H* (0.5-2.0) mmol/L Total Bilirubin (0.0-1.0) mg/dL Direct Bilirubin (0.0-0.5) mg/dL AST (5-37) U/L ALT (0-40) U/L Alkaline Phosphatase (39-117) U/L Ammonia (13-55) umol/L Total Protein (6.5-8.0) g/dL Albumin (3.5-5.0) g/dL Urine Osmolality (373-1093) mosm/kg Salicylates < 5.0 L (15-30) mg/dL 01/09/21 01/09/21 Range/Units 14:04 14:15 RBC (4.60-5.80) X10*6/uL Hgb (14.0-18.0) g/dl Hct (42-52) % MCV (80-98) fL MCH (27.0-33.0) pg RDW (11.0-16.0) % Plt Count (160-400) X10*3/uL Immature Gran % (Auto) (0.0-0.4) % Lymph % (Auto) (20-40) % [place] % (Auto) (2-11) % Abs Immat Gran (auto) (0.00-0.03) X10*3/uL PT (9.9-13.0) SEC INR (0.9-1.1) Sodium (135-145) mmol/L Chloride (96-108) mmol/L BUN (9-16) mg/dL Random Glucose (60-115) mg/dL Osmolality (281-305) mosm/kg Lactic Acid (0.5-2.0) mmol/L Total Bilirubin (0.0-1.0) mg/dL Direct Bilirubin (0.0-0.5) mg/dL AST (5-37) U/L ALT (0-40) U/L Alkaline Phosphatase (39-117) U/L Ammonia 58 H (13-55) umol/L Total Protein (6.5-8.0) g/dL Albumin (3.5-5.0) g/dL Urine Osmolality 47 L (373-1093) mosm/kg Salicylates (15-30) mg/dL Short CBC 01/09/21 Range/Units 13:47 WBC 8.0 (4.8-10.8) X10*3/uL Hgb 13.2 L (14.0-18.0) g/dl Hct 37.2 L (42-52) % Plt Count 153 L (160-400) X10*3/uL BMP 01/09/21 13:47 Sodium 128 L Potassium 3.5 Chloride 89 L Carbon Dioxide 27 BUN 2 L Creatinine 1.02 Calcium 8.9 Liver Function 01/09/21 Range/Units 13:47 Total Bilirubin 29.1 H (0.0-1.0) mg/dL Direct Bilirubin 20.4 H (0.0-0.5) mg/dL AST 246 H (5-37) U/L ALT 65 H (0-40) U/L Alkaline Phosphatase 570 H (39-117) U/L Albumin 2.8 L (3.5-5.0) g/dL Urine 01/09/21 Range/Units 14:04 Urine Color YELLOW Urine Appearance CLEAR Urine pH 6.0 (5.0-8.0) Ur Specific [place] <= 1.005 (1.005-1.025) Urine Protein NEG (NEG-TRACE) MG/DL Urine Glucose (UA) NEG (NEG) MG/DL All other labs normal. Imaging Abdomen CT scan report/results: report reviewed and image reviewed CT scan - pelvis: report reviewed and image reviewed Assessment and Plan (1) Jaundice: Status: Acute He has severe jaundice with a bilirubin 29/20. This is highly suggestive of hepatitis likely from alcohol abuse with this history. Despite the CAT scan finding of gallbladder wall thickening, overall clinical picture is not consistent with acute cholecystitis. He does not have any right upper quadrant pain. Review of his CT scan images as well do not really suggest inflammatory changes of the gallbladder. He likely has alcoholic hepatitis. I have recommended gastroenterology consult. He will need IV hydration and a lot of supportive treatment. No surgical intervention is considered at this time. I will follow along if he gets admitted to the hospital. I have discussed the above with the ER staff. Procedures Date of Service Date of Service: 01/09/21
[2021-01-09 17:36] LABS: ~Lactic Acid-LAB USE ONLY 1.3 mmol/L (0.5-2.0)
[2021-01-09] MEDS: dilTIAZem HCL 125 MG in 0.9 % Sodium Chloride 100 ML 10 MG IVCONT (17:38)
[2021-01-09 17:39] LABS: Troponin-I High Sensitivity 13.5 ng/L (<3.5-35.0)
[2021-01-09 18:04] LABS: Anion Gap 13 (12-20); Blood Urea Nitrogen 2 mg/dL (9-16); Calcium 8.2 mg/dL (8.4-10.2); Carbon Dioxide 25 mmol/L (22-29); Chloride 95 mmol/L (96-108); Estimated Glomerular Filt Rate > 60; Glucose Random 115 mg/dL (60-115); Sodium 130 mmol/L (135-145)
[2021-01-09] MEDS: Piperacillin Sodium/Tazobactam 3.375 GM in 0.9 % Sodium Chloride 50 ML IV (19:34)
[2021-01-09] MEDS: Potassium Chloride ER 20 MEQ TAB.ER.PRT 60 MEQ PO (19:37)
[2021-01-09] MEDS: 0.9 % Sodium Chloride 1,000 ML 100 ML IVCONT (19:37)
[2021-01-09] MEDS: Metoprolol Tartrate 5 MG/5 ML VIAL IVPUSH (20:06)
--- NOTE | 2021-01-09 20:11 | PM.IMHP ---
History of Present Illness Date of Service: 01/09/21 Chief Complaint: Jaundice 55-year-old male with no significant past medical history presented to the hospital with a chief complaint of Jaundice. Patient reported that he intermittently drinks alcohol; last drink was last Wednesday; since Wednesday he noted to the have allowing of the skin and ice; this morning he went to the pharmacy where he was told by the by member in the shop to consider going to the ER given allow ice; patient subsequently came to the hospital for further evaluation. Patient denies any chest pain palpitations lightheadedness or dizziness. Denies any numbness tingling. Denies any fever chills cough. Denies any signs of bleeding. Denies any recent travel or sick contacts. Patient denies using any illicit drugs. Denies using excessive Tylenol. Denies any pain. Denies any abdominal discomfort or blood in the stool. Review of all other systems is negative except mentioned above ER course: Per ER team patient on presentation noted to be icteric, dehydrated, and vitals noted to have mildly soft blood pressure but heart rate in 150s, EKG consistent AFib -RVR; patient started on IV boluses of diltiazem with no significant improvement subsequently started on diltiazem drip at maximum dose; patient's heart rate was still persistently high, patient was given a dose of IV metoprolol; spoke to Cardiology- who recommended to continue the current management as long as the blood pressure is stable. Patient also noted to have T bili of 29, elevated liver enzymes; CT scan showed normal CBD, findings consistent with possible acute cholecystitis; patient had no fever or abdominal pain; normal white count; empirically given a dose of Zosyn. Discussed with Gastroenterology-who recommended admission to the [facility] and MRI abdomen in the morning. Also discussed with general surgery who evaluated the patient and mentioned not concern for acute cholecystitis. admitted for further management [facility] Medical History (Updated 01/10/21 @ 09:54 by Justen Rojas MD) Alcoholic hepatitis HTN (hypertension) Family History (Updated 01/10/21 @ 09:52 by Justen Rojas MD) Father CAD (coronary artery disease) Social History Household Members: None Housing: House Do you presently have visiting nurse or other home services: No Alcohol intake: current Alcohol intake frequency: 0-2 drinks per day Alcohol type: beer, wine, hard liquor and other Patient Tobacco Use Status: Never used Tobacco Meds Allergies Allergy/AdvReac Type Severity Reaction Status Date / Time No Known Allergies Allergy Verified 01/09/21 12:30 [No Known Allergies*] Active Medications: Current Medications Generic Name Dose Route Start Last Admin Trade Name Freq PRN Reason Stop Dose Admin Acetaminophen 650 mg 01/09/21 20:03 Acetaminophen 325 Mg Tablet PO Q6H PRN Pain, Mild (Pain Scale 1-3) Famotidine 20 mg 01/09/21 21:00 Famotidine 20 Mg Tablet PO BID EDWIN Folic Acid 1 mg 01/10/21 09:00 Folic Acid 1 Mg Tablet PO 01/13/21 08:59 DAILY EDWIN Diltiazem HCl 125 mg/ Sodium 125 mls @ 0 mls/hr 01/09/21 17:30 01/09/21 17:38 Chloride IVCONT 10 mg/hr .Q0M EDWIN 10 mls/hr Administration Protocol Per Protocol Sodium Chloride 1,000 mls @ 100 mls/hr 01/09/21 19:30 01/09/21 19:37 Ns IVCONT 100 mls/hr .Q10H EDWIN Administration Dextrose/Sodium Chloride 1,000 mls @ 100 mls/hr 01/09/21 20:15 D51/2ns IVCONT .Q10H EDWIN Diltiazem HCl 125 mg/ Sodium 125 mls @ 0 mls/hr 01/09/21 20:15 Chloride IVCONT .Q0M EDWIN Protocol Per Protocol Piperacillin Sod/Tazobactam 50 mls @ 100 mls/hr 01/09/21 20:15 Sod 3.375 gm/ Sodium Chloride IV Q6H EDWIN Melatonin 6 mg 01/09/21 20:03 Melatonin 3 Mg Tablet PO BEDTIME PRN Insomnia Multivitamins 1 tab 01/10/21 09:00 B-Complex With Vitamin C Tablet PO DAILY [facility] Pharmacy Consult 1 each 01/09/21 13:00 Consult Rx Perform Med Rec MISCELLANE ONCE PRN Consult order Senna 17.2 mg 01/09/21 20:03 Sennosides 8.6 Mg Tablet PO BEDTIME PRN Constipation Sodium Chloride 3 ml 01/10/21 00:00 0.9 % Sodium Chloride Flush 3 Ml Syringe IVFLUSH QSHIFT [facility] Thiamine HCl 100 mg 01/10/21 09:00 Thiamine Hcl 100 Mg Tablet PO 01/13/21 08:59 DAILY [facility] Home Medications Medication Instructions Recorded Confirmed Last Taken Type Emergen-C 1 ea PO DAILY 01/09/21 01/09/21 12/26/20 History Physical Exam Vital Signs and Narrative: Vital Signs: Last Vital Signs Temp 98.5 F 01/09/21 16:43 Pulse 147 H 01/09/21 17:42 Resp 17 01/09/21 17:42 BP 107/65 01/09/21 20:02 Pulse Ox 97 01/09/21 17:42 Body Mass Index 28.7 Gen: Appears be in no acute distress HEENT: NCAT, dry mucosa, icteric sclera Pulmonary: Vesicular breath sounds, fair air entry CVS: Normal S1-S2 Abdomen: BS+, Soft, distended -obese; nontender Extremities: Warm well perfused Neuro: Alert and awake. integumentary: Icteric skin Results Labs CBC and Chem 7: 01/11/21 05:24 01/11/21 05:24 Labs: Laboratory Results - last 24 hr 01/09/21 01/09/21 01/09/21 13:47 13:47 13:47 MCV 103.3 H MCH 36.7 H MCHC 35.5 RDW 16.4 H Plt Count 153 L MPV 11.8 Immature Gran % (Auto) 2.1 H Neut % (Auto) 66.9 Lymph % (Auto) 18.7 L [place] % (Auto) 11.5 H Eos % (Auto) 0.3 Baso % (Auto) 0.5 Lymph # (Auto) 1.5 [place] # (Auto) 0.9 Eos # (Auto) 0.0 Baso # (Auto) 0.0 Abs Immat Gran (auto) 0.17 H Absolute Neuts (auto) 5.3 Absolute Nucleated RBC 0.000 Nucleated RBC % (auto) 0.0 PT 13.1 H INR 1.2 H Anion Gap 16 Estim Creat Clear Calc 94.8 Estimated GFR > 60 Random Glucose 171 H Osmolality Lactic Acid Lactic Acid Fup @ 2Hr Calcium 8.9 Magnesium 1.8 Total Bilirubin 29.1 H Direct Bilirubin 20.4 H AST 246 H ALT 65 H Alkaline Phosphatase 570 H Ammonia Troponin I High Sens Total Protein 5.6 L Albumin 2.8 L Lipase 14 Urine Color Urine Appearance Urine pH Ur Specific [place] Urine Protein Urine Glucose (UA) Urine Ketones Urine Blood Urine Nitrite Ur Leukocyte Esterase Urine Osmolality Ur Random Sodium Urine Creatinine Salicylates Urine Opiates Screen Acetaminophen Ur Barbiturates Screen Ur Phencyclidine Scrn Ur Amphetamines Screen U Benzodiazepines Scrn Urine Cocaine Screen U Marijuana (THC) Screen Ethyl Alcohol COVID-19 (GAUTAM) COVID-19 Clin Com 01/09/21 01/09/21 01/09/21 13:47 13:47 13:47 MCV MCH MCHC RDW Plt Count MPV Immature Gran % (Auto) Neut % (Auto) Lymph % (Auto) [place] % (Auto) Eos % (Auto) Baso % (Auto) Lymph # (Auto) [place] # (Auto) Eos # (Auto) Baso # (Auto) Abs Immat Gran (auto) Absolute Neuts (auto) Absolute Nucleated RBC Nucleated RBC % (auto) PT INR Anion Gap Estim Creat Clear Calc Estimated GFR Random Glucose Osmolality Lactic Acid 2.8 H* Lactic Acid Fup @ 2Hr Calcium Magnesium Total Bilirubin Direct Bilirubin AST ALT Alkaline Phosphatase Ammonia Troponin I High Sens Total Protein Albumin Lipase Urine Color Urine Appearance Urine pH Ur Specific [place] Urine Protein Urine Glucose (UA) Urine Ketones Urine Blood Urine Nitrite Ur Leukocyte Esterase Urine Osmolality Ur Random Sodium Urine Creatinine Salicylates < 5.0 L Urine Opiates Screen Acetaminophen < 1 Ur Barbiturates Screen Ur Phencyclidine Scrn Ur Amphetamines Screen U Benzodiazepines Scrn Urine Cocaine Screen U Marijuana (THC) Screen Ethyl Alcohol < 10 COVID-19 (GAUTAM) COVID-19 Clin Com 01/09/21 01/09/21 01/09/21 13:47 13:47 14:04 MCV MCH MCHC RDW Plt Count MPV Immature Gran % (Auto) Neut % (Auto) Lymph % (Auto) [place] % (Auto) Eos % (Auto) Baso % (Auto) Lymph # (Auto) [place] # (Auto) Eos # (Auto) Baso # (Auto) Abs Immat Gran (auto) Absolute Neuts (auto) Absolute Nucleated RBC Nucleated RBC % (auto) PT INR Anion Gap Estim Creat Clear Calc Estimated GFR Random Glucose Osmolality 278 L Lactic Acid Lactic Acid Fup @ 2Hr Calcium Magnesium Total Bilirubin Direct Bilirubin AST ALT Alkaline Phosphatase Ammonia Troponin I High Sens Total Protein Albumin Lipase Urine Color YELLOW Urine Appearance CLEAR Urine pH 6.0 Ur Specific [place] <= 1.005 Urine Protein NEG Urine Glucose (UA) NEG Urine Ketones NEG Urine Blood NEG Urine Nitrite NEG Ur Leukocyte Esterase NEG Urine Osmolality Ur Random Sodium Urine Creatinine Salicylates Urine Opiates Screen Acetaminophen Ur Barbiturates Screen Ur Phencyclidine Scrn Ur Amphetamines Screen U Benzodiazepines Scrn Urine Cocaine Screen U Marijuana (THC) Screen Ethyl Alcohol COVID-19 (GAUTAM) Negative COVID-19 Clin Com See Note 01/09/21 01/09/21 01/09/21 14:04 14:04 14:04 MCV MCH MCHC RDW Plt Count MPV Immature Gran % (Auto) Neut % (Auto) Lymph % (Auto) [place] % (Auto) Eos % (Auto) Baso % (Auto) Lymph # (Auto) [place] # (Auto) Eos # (Auto) Baso # (Auto) Abs Immat Gran (auto) Absolute Neuts (auto) Absolute Nucleated RBC Nucleated RBC % (auto) PT INR Anion Gap Estim Creat Clear Calc Estimated GFR Random Glucose Osmolality Lactic Acid Lactic Acid Fup @ 2Hr Calcium Magnesium Total Bilirubin Direct Bilirubin AST ALT Alkaline Phosphatase Ammonia Troponin I High Sens Total Protein Albumin Lipase Urine Color Urine Appearance Urine pH Ur Specific [place] Urine Protein Urine Glucose (UA) Urine Ketones Urine Blood Urine Nitrite Ur Leukocyte Esterase Urine Osmolality 47 L Ur Random Sodium < 20.0 Urine Creatinine 24.52 Salicylates Urine Opiates Screen Not Detected Acetaminophen Ur Barbiturates Screen Not Detected Ur Phencyclidine Scrn Not Detected Ur Amphetamines Screen Not Detected U Benzodiazepines Scrn Not Detected Urine Cocaine Screen Not Detected U Marijuana (THC) Screen Not Detected Ethyl Alcohol COVID-19 ([facility]UTAM) COVID-19 Clin Com 01/09/21 01/09/21 01/09/21 14:15 16:54 16:54 MCV MCH MCHC RDW Plt Count MPV Immature Gran % (Auto) Neut % (Auto) Lymph % (Auto) [place] % (Auto) Eos % (Auto) Baso % (Auto) Lymph # (Auto) [place] # (Auto) Eos # (Auto) Baso # (Auto) Abs Immat Gran (auto) Absolute Neuts (auto) Absolute Nucleated RBC Nucleated RBC % (auto) PT INR Anion Gap 13 Estim Creat Clear Calc 129.0 Estimated GFR > 60 Random Glucose 115 Osmolality Lactic Acid Lactic Acid Fup @ 2Hr 1.3 Calcium 8.2 L D Magnesium Total Bilirubin Direct Bilirubin AST ALT Alkaline Phosphatase Ammonia 58 H Troponin I High Sens Total Protein Albumin Lipase Urine Color Urine Appearance Urine pH Ur Specific [place] Urine Protein Urine Glucose (UA) Urine Ketones Urine Blood Urine Nitrite Ur Leukocyte Esterase Urine Osmolality Ur Random Sodium Urine Creatinine Salicylates Urine Opiates Screen Acetaminophen Ur Barbiturates Screen Ur Phencyclidine Scrn Ur Amphetamines Screen U Benzodiazepines Scrn Urine Cocaine Screen U Marijuana (THC) Screen Ethyl Alcohol COVID-19 ([facility]UTAM) COVID-19 Clin Com 01/09/21 16:54 MCV MCH MCHC RDW Plt Count MPV Immature Gran % (Auto) Neut % (Auto) Lymph % (Auto) [place] % (Auto) Eos % (Auto) Baso % (Auto) Lymph # (Auto) [place] # (Auto) Eos # (Auto) Baso # (Auto) Abs Immat Gran (auto) Absolute Neuts (auto) Absolute Nucleated RBC Nucleated RBC % (auto) PT INR Anion Gap Estim Creat Clear Calc Estimated GFR Random Glucose Osmolality Lactic Acid Lactic Acid Fup @ 2Hr Calcium Magnesium Total Bilirubin Direct Bilirubin AST ALT Alkaline Phosphatase Ammonia Troponin I High Sens 13.5 Total Protein Albumin Lipase Urine Color Urine Appearance Urine pH Ur Specific [place] Urine Protein Urine Glucose (UA) Urine Ketones Urine Blood Urine Nitrite Ur Leukocyte Esterase Urine Osmolality Ur Random Sodium Urine Creatinine Salicylates Urine Opiates Screen Acetaminophen Ur Barbiturates Screen Ur Phencyclidine Scrn Ur Amphetamines Screen U Benzodiazepines Scrn Urine Cocaine Screen U Marijuana (THC) Screen Ethyl Alcohol COVID-19 (GAUTAM) COVID-19 Clin Com Imaging Radiologist's Impressions: Impressions Abdomen/Pelvis CT 01/09/21 12:55 IMPRESSION: Findings consistent with acute cholecystitis. No common bile duct dilatation and no pancreatic head mass appreciated. Head CT 01/09/21 12:55 IMPRESSION: No acute intracranial findings. Soft tissue swelling adjacent to the left posterior parietal bone and mild inflammatory changes in the sphenoid sinus. Assessment and Plan (1) Jaundice: Status: Deleted 55-year-old male with no significant past medical history presented to the hospital with a chief complaint of Jaundice Icterus/ transaminitis: Patient currently has no abdominal pain nausea vomiting. Patient T bili 29; CT scan showed possible cholecystitis-> general surgery mentioned less concern for cholecystitis patient empirically being covered with Zosyn. Will trend the liver enzymes Acute hepatitis panel Dr. Rome from Gastroenterology is aware of the patient concern for alcoholic hepatitis-MDS score of 42-> started Prednisone 40mg new onset AFib with rapid ventricular response: Patient denies any palpitations or chest pain. Blood pressure fairly stable in the low 100s systolic patient is on diltiazem drip at max dose. Received dose of metoprolol. Will continue to monitor on tele. Cardiology was made aware. Cycle cardiac enzymes Echocardiogram TSH DVT prophylaxis: SCD boots Code status: Full code (2) Alcoholic hepatitis: Qualifiers: Ascites presence: unspecified Qualified Code(s): K70.10 - Alcoholic hepatitis without ascites Status: Acute Quality Stroke Does the patient have a stroke diagnosis?: No VTE Prior VTE?: No VTE Risk Level:: Medical - moderate - high VTE Device Contraindication: N/A - Device Ordered VTE Drug Contraindication: Patient Refused
[2021-01-09] MEDS: predniSONE 20 MG TABLET 40 MG PO (20:42)
[2021-01-09] MEDS: Famotidine 20 MG TABLET PO (20:42)
[2021-01-09] MEDS: Dextrose 5 % and 0.45 % NaCl 1,000 ML 100 ML IVCONT (20:43)
[2021-01-09] MEDS: dilTIAZem HCL 125 MG in 0.9 % Sodium Chloride 100 ML 15 MG IVCONT (22:33)
[2021-01-10] VITALS (7 sets, daily range): BP systolic 100–142; BP diastolic 56–85; PULSE 66–120; RESP 16–22; TEMP 36.4–37; O2SAT 96–98
[2021-01-10] MEDS: 0.9 % Sodium Chloride Flush 3 ML SYRINGE IVFLUSH ×4 (00:01→23:27)
[2021-01-10] MEDS: Piperacillin Sodium/Tazobactam 3.375 GM in 0.9 % Sodium Chloride 50 ML IV ×2 (01:45→09:09)
--- NOTE | 2021-01-10 02:52 | PC.NURSE ---
Pt cannot sleep. Is a little anxious about being in the hospital. 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 Today is Wednesday. Heart rate is 100's-140's. When this RN assumed care of pt at 2300, HR was in the 80's. Now it is consistently over 100 and up to 140's. rhythm is aflutter. Hospitalist aware and ordeed ativan for anxiety. Will also start assessing ciwa.
[2021-01-10] MEDS: LORazepam 1 MG TABLET PO (03:43)
[2021-01-10] MEDS: dilTIAZem HCL 125 MG in 0.9 % Sodium Chloride 100 ML 15 MG IVCONT (03:50)
[2021-01-10] MEDS: Dextrose 5 % and 0.45 % NaCl 1,000 ML 100 ML IVCONT (05:43)
[2021-01-10 06:07] LABS: Hemoglobin 11.2 g/dl (14.0-18.0); MANUAL DIFF FLAG SCAN; PLT CLUMP 1; SCAN SMEAR FLAG 1
[2021-01-10 06:09] LABS: Basophils Percent Auto 0.3 % (0-2); Hematocrit 31.4 % (42-52); Imm Gran Abs Auto 0.12 X10*3/uL (0.00-0.03); Imm Gran Pct Auto 2.1 % (0.0-0.4); Lymphocytes Absolute Auto 0.4 X10*3/uL (1.2-4.9); Mean Corpuscular HGB Conc 35.7 g/dl (31.0-36.0); Mean Corpuscular Hemoglobin 36.8 pg (27.0-33.0); Mean Corpuscular Volume 103.3 fL (80-98); Mean Platelet Volume 12.3 fL (9.4-12.4); Monocytes Absolute Auto 0.4 X10*3/uL (0.1-1.2); Monocytes Percent Auto 6.1 % (2-11); NRBC Pct Auto 0.3 /100WBC (0.0-0.2); Neutrophils Absolute Auto 4.8 X10*3/uL (2.0-8.3); Neutrophils Percent Auto 84.5 % (45-73); Platelet Count 136 X10*3/uL (160-400); Red Blood Count 3.04 X10*6/uL (4.60-5.80); White Blood Count 5.7 X10*3/uL (4.8-10.8)
[2021-01-10 06:10] LABS: INTERNATIONAL NORM RATIO 1.2 (0.9-1.1); Prothrombin Time 14.2 SEC (9.9-13.0)
[2021-01-10 06:31] LABS: Magnesium 1.6 mg/dL (1.6-2.6)
[2021-01-10 06:32] LABS: Sodium 131 mmol/L (135-145)
[2021-01-10 06:33] LABS: Alanine Aminotransferase 49 U/L (0-40); Albumin Level 2.3 g/dL (3.5-5.0); Alkaline Phosphatase 437 U/L (39-117); Anion Gap 13 (12-20); Aspartate Amino Transferase 159 U/L (5-37); Blood Urea Nitrogen < 2 mg/dL (9-16); Calcium 7.9 mg/dL (8.4-10.2); Carbon Dioxide 23 mmol/L (22-29); Chloride 99 mmol/L (96-108); Creatinine Clr Calc Pharmacy 113.8; Estimated Glomerular Filt Rate > 60; Glucose Random 249 mg/dL (60-115); Potassium 3.6 mmol/L (3.3-5.1); Total Protein 4.5 g/dL (6.5-8.0)
[2021-01-10 06:46] LABS: Free T4 (Free Thyroxine) 0.88 ng/dL (0.71-1.85); Thyroid Stimulating Hormone 0.42 uIU/mL (0.32-4.0)
[2021-01-10 06:48] LABS: Bilirubin Total 23.3 mg/dL (0.0-1.0)
[2021-01-10 07:01] LABS: Bilirubin Direct 18.9 mg/dL (0.0-0.5)
[2021-01-10 07:27] LABS: SLIDE REVIEW VERIFIED
[2021-01-10 08:29] LABS: Hepatitis A Antibody IgM 0.21 Index (0-0.79); Hepatitis B Surface Antigen Negative (Negative); ~HepC Num1 0.16 S/CO (0.00-0.79); ~Hepatitis A Antibody IgM Nonreactive (Nonreactive); ~Hepatitis B Surface Antibody REACTIVE (Nonreactive); ~Hepatitis C Antibody Nonreactive (Nonreactive)
[2021-01-10 09:07] LABS: HBc Num1 0.09 S/CO (0.00-0.79); Hepatitis B Core Antibody Nonreactive (Nonreactive)
[2021-01-10] MEDS: Enoxaparin Sodium 40 MG/0.4 ML SYRINGE SUBCUT (09:07)
[2021-01-10] MEDS: Lactated Ringers 1,000 ML 80 ML IVCONT (09:08)
[2021-01-10] MEDS: Thiamine HCL 100 MG TABLET PO (09:10)
[2021-01-10] MEDS: Famotidine 20 MG TABLET PO (09:10)
[2021-01-10] MEDS: Folic Acid 1 MG TABLET PO (09:10)
[2021-01-10] MEDS: predniSONE 20 MG TABLET 40 MG PO (09:10)
--- NOTE | 2021-01-10 09:13 | HO.PM.IMPN ---
Subjective Subjective Date of Service: 01/10/21 Interval History: denies specific symptoms Cardiovascular Cardiovascular: Reports no additional cardiovascular complaints Respiratory Respiratory: Reports no additional respiratory complaints Physical Exam Vital Signs: Vital Signs: Last Vital Signs Temp 97.6 F 01/10/21 07:14 Pulse 66 01/10/21 07:14 Resp 16 01/10/21 07:14 BP 109/72 01/10/21 07:14 Pulse Ox 97 01/10/21 07:14 Body Mass Index 28.7 General: AO X 3, somewhat antsy, jaundiced Resp: CTA bilateral CVS: S1,S2,RRR GI: soft, non tender, non distended Neuro: motor grossly intact, tremulous Psych: appropriate affect Objective Data Current Medications Generic Name Dose Route Start Last Admin Trade Name Freq PRN Reason Stop Dose Admin Acetaminophen 650 mg 01/09/21 20:03 Acetaminophen 325 Mg Tablet PO Q6H PRN Pain, Mild (Pain Scale 1-3) Enoxaparin Sodium 40 mg 01/10/21 07:15 01/10/21 09:07 Enoxaparin Sodium 40 Mg/0.4 Ml Syringe SUBCUT 40 mg Q24H EDWIN Administration Folic Acid 1 mg 01/10/21 09:00 01/10/21 09:10 Folic Acid 1 Mg Tablet PO 01/13/21 08:59 1 mg DAILY EDWIN Administration Melatonin 6 mg 01/09/21 20:03 Melatonin 3 Mg Tablet PO BEDTIME PRN Insomnia Multivitamins 1 tab 01/10/21 09:00 01/10/21 09:10 B-Complex With Vitamin C Tablet PO 1 tab DAILY EDWIN Administration Pharmacy Consult 1 each 01/09/21 13:00 Consult Rx Perform Med Rec MISCELLANE ONCE PRN Consult order Pharmacy Consult 1 each 01/10/21 09:12 Consult Rx Etoh Phenob Dosing MISCELLANE 01/10/21 09:13 ONCE ONE Protocol Prednisone 40 mg 01/09/21 20:35 01/10/21 09:10 Prednisone 20 Mg Tablet PO 40 mg DAILY EDWIN Administration Senna 17.2 mg 01/09/21 20:03 Sennosides 8.6 Mg Tablet PO BEDTIME PRN Constipation Sodium Chloride 3 ml 01/10/21 00:00 01/10/21 09:10 0.9 % Sodium Chloride Flush 3 Ml Syringe IVFLUSH 3 ml QSHIFT EDWIN Administration Thiamine HCl 100 mg 01/10/21 09:00 01/10/21 09:10 Thiamine Hcl 100 Mg Tablet PO 01/13/21 08:59 100 mg DAILY EDWIN Administration Labs CBC & Chem 7: 01/10/21 05:26 01/10/21 05:25 Labs: Laboratory Results - last 24 hr 01/09/21 01/09/21 01/09/21 13:47 13:47 13:47 WBC 8.0 RBC 3.60 L Hgb 13.2 L Hct 37.2 L MCV 103.3 H MCH 36.7 H MCHC 35.5 RDW 16.4 H Plt Count 153 L MPV 11.8 Immature Gran % (Auto) 2.1 H Neut % (Auto) 66.9 Lymph % (Auto) 18.7 L [place] % (Auto) 11.5 H Eos % (Auto) 0.3 Baso % (Auto) 0.5 Lymph # (Auto) 1.5 [place] # (Auto) 0.9 Eos # (Auto) 0.0 Baso # (Auto) 0.0 Abs Immat Gran (auto) 0.17 H Absolute Neuts (auto) 5.3 Absolute Nucleated RBC 0.000 Nucleated RBC % (auto) 0.0 Smear Tech's Comments PT 13.1 H INR 1.2 H Sodium 128 L Potassium 3.5 Chloride 89 L Carbon Dioxide 27 Anion Gap 16 BUN 2 L Creatinine 1.02 Estim Creat Clear Calc 94.8 Estimated GFR > 60 Random Glucose 171 H Osmolality Lactic Acid Lactic Acid Fup @ 2Hr Calcium 8.9 Magnesium 1.8 Total Bilirubin 29.1 H Direct Bilirubin 20.4 H AST 246 H ALT 65 H Alkaline Phosphatase 570 H Ammonia Troponin I High Sens Total Protein 5.6 L Albumin 2.8 L Lipase 14 TSH Free T4 Urine Color Urine Appearance Urine pH Ur Specific [place] Urine Protein Urine Glucose (UA) Urine Ketones Urine Blood Urine Nitrite Ur Leukocyte Esterase Urine Osmolality Ur Random Sodium Urine Creatinine Salicylates Urine Opiates Screen Acetaminophen Ur Barbiturates Screen Ur Phencyclidine Scrn Ur Amphetamines Screen U Benzodiazepines Scrn Urine Cocaine Screen U Marijuana (THC) Screen Ethyl Alcohol COVID-19 (GAUTAM) COVID-19 Clin Com Hepatitis A IgM Ab Hep Bs Antigen Hep Bs Antibody Hep B Core Total Ab Hepatitis C Ab (EIA) 07/08/21 07/08/21 07/08/21 13:47 13:47 13:47 WBC RBC Hgb Hct MCV MCH MCHC RDW Plt Count MPV Immature Gran % (Auto) Neut % (Auto) Lymph % (Auto) [place] % (Auto) Eos % (Auto) Baso % (Auto) Lymph # (Auto) [place] # (Auto) Eos # (Auto) Baso # (Auto) Abs Immat Gran (auto) Absolute Neuts (auto) Absolute Nucleated RBC Nucleated RBC % (auto) Smear Tech's Comments PT INR Sodium Potassium Chloride Carbon Dioxide Anion Gap BUN Creatinine Estim Creat Clear Calc Estimated GFR Random Glucose Osmolality Lactic Acid 2.8 H* Lactic Acid Fup @ 2Hr Calcium Magnesium Total Bilirubin Direct Bilirubin AST ALT Alkaline Phosphatase Ammonia Troponin I High Sens Total Protein Albumin Lipase TSH Free T4 Urine Color Urine Appearance Urine pH Ur Specific [place] Urine Protein Urine Glucose (UA) Urine Ketones Urine Blood Urine Nitrite Ur Leukocyte Esterase Urine Osmolality Ur Random Sodium Urine Creatinine Salicylates < 5.0 L Urine Opiates Screen Acetaminophen < 1 Ur Barbiturates Screen Ur Phencyclidine Scrn Ur Amphetamines Screen U Benzodiazepines Scrn Urine Cocaine Screen U Marijuana (THC) Screen Ethyl Alcohol < 10 COVID-19 (GAUTAM) COVID-19 Clin Com Hepatitis A IgM Ab Hep Bs Antigen Hep Bs Antibody Hep B Core Total Ab Hepatitis C Ab (EIA) 01/09/21 01/09/21 07 13:47 13:47 14:04 WBC RBC Hgb Hct MCV MCH MCHC RDW Plt Count MPV Immature Gran % (Auto) Neut % (Auto) Lymph % (Auto) [place] % (Auto) Eos % (Auto) Baso % (Auto) Lymph # (Auto) [place] # (Auto) Eos # (Auto) Baso # (Auto) Abs Immat Gran (auto) Absolute Neuts (auto) Absolute Nucleated RBC Nucleated RBC % (auto) Smear Tech's Comments PT INR Sodium Potassium Chloride Carbon Dioxide Anion Gap BUN Creatinine Estim Creat Clear Calc Estimated GFR Random Glucose Osmolality 278 L Lactic Acid Lactic Acid Fup @ 2Hr Calcium Magnesium Total Bilirubin Direct Bilirubin AST ALT Alkaline Phosphatase Ammonia Troponin I High Sens Total Protein Albumin Lipase TSH Free T4 Urine Color YELLOW Urine Appearance CLEAR Urine pH 6.0 Ur Specific [place] <= 1.005 Urine Protein NEG Urine Glucose (UA) NEG Urine Ketones NEG Urine Blood NEG Urine Nitrite NEG Ur Leukocyte Esterase NEG Urine Osmolality Ur Random Sodium Urine Creatinine Salicylates Urine Opiates Screen Acetaminophen Ur Barbiturates Screen Ur Phencyclidine Scrn Ur Amphetamines Screen U Benzodiazepines Scrn Urine Cocaine Screen U Marijuana (THC) Screen Ethyl Alcohol COVID-19 (GAUTAM) Negative COVID-19 Clin Com See Note Hepatitis A IgM Ab Hep Bs Antigen Hep Bs Antibody Hep B Core Total Ab Hepatitis C Ab (EIA) 01/09/21 01/09/21 01/09/21 14:04 14:04 14:04 WBC RBC Hgb Hct MCV MCH MCHC RDW Plt Count MPV Immature Gran % (Auto) Neut % (Auto) Lymph % (Auto) [place] % (Auto) Eos % (Auto) Baso % (Auto) Lymph # (Auto) [place] # (Auto) Eos # (Auto) Baso # (Auto) Abs Immat Gran (auto) Absolute Neuts (auto) Absolute Nucleated RBC Nucleated RBC % (auto) Smear Tech's Comments PT INR Sodium Potassium Chloride Carbon Dioxide Anion Gap BUN Creatinine Estim Creat Clear Calc Estimated GFR Random Glucose Osmolality Lactic Acid Lactic Acid Fup @ 2Hr Calcium Magnesium Total Bilirubin Direct Bilirubin AST ALT Alkaline Phosphatase Ammonia Troponin I High Sens Total Protein Albumin Lipase TSH Free T4 Urine Color Urine Appearance Urine pH Ur Specific [place] Urine Protein Urine Glucose (UA) Urine Ketones Urine Blood Urine Nitrite Ur Leukocyte Esterase Urine Osmolality 47 L Ur Random Sodium < 20.0 Urine Creatinine 24.52 Salicylates Urine Opiates Screen Not Detected Acetaminophen Ur Barbiturates Screen Not Detected Ur Phencyclidine Scrn Not Detected Ur Amphetamines Screen Not Detected U Benzodiazepines Scrn Not Detected Urine Cocaine Screen Not Detected U Marijuana (THC) Screen Not Detected Ethyl Alcohol COVID-19 (GAUTAM) COVID-19 Clin Com Hepatitis A IgM Ab Hep Bs Antigen Hep Bs Antibody Hep B Core Total Ab Hepatitis C Ab (EIA) 01/09/21 01/09/21 01/09/21 14:15 16:54 16:54 WBC RBC Hgb Hct MCV MCH MCHC RDW Plt Count MPV Immature Gran % (Auto) Neut % (Auto) Lymph % (Auto) [place] % (Auto) Eos % (Auto) Baso % (Auto) Lymph # (Auto) [place] # (Auto) Eos # (Auto) Baso # (Auto) Abs Immat Gran (auto) Absolute Neuts (auto) Absolute Nucleated RBC Nucleated RBC % (auto) Smear Tech's Comments PT INR Sodium 130 L Potassium 3.0 L Chloride 95 L Carbon Dioxide 25 Anion Gap 13 BUN 2 L Creatinine 0.75 Estim Creat Clear Calc 129.0 Estimated GFR > 60 Random Glucose 115 Osmolality Lactic Acid Lactic Acid Fup @ 2Hr 1.3 Calcium 8.2 L D Magnesium Total Bilirubin Direct Bilirubin AST ALT Alkaline Phosphatase Ammonia 58 H Troponin I High Sens Total Protein Albumin Lipase TSH Free T4 Urine Color Urine Appearance Urine pH Ur Specific [place] Urine Protein Urine Glucose (UA) Urine Ketones Urine Blood Urine Nitrite Ur Leukocyte Esterase Urine Osmolality Ur Random Sodium Urine Creatinine Salicylates Urine Opiates Screen Acetaminophen Ur Barbiturates Screen Ur Phencyclidine Scrn Ur Amphetamines Screen U Benzodiazepines Scrn Urine Cocaine Screen U Marijuana (THC) Screen Ethyl Alcohol COVID-19 (GAUTAM) COVID-19 Clin Com Hepatitis A IgM Ab Hep Bs Antigen Hep Bs Antibody Hep B Core Total Ab Hepatitis C Ab (EIA) 01/09/21 01/10/21 01/10/21 16:54 05:25 05:25 WBC RBC Hgb Hct MCV MCH MCHC RDW Plt Count MPV Immature Gran % (Auto) Neut % (Auto) Lymph % (Auto) [place] % (Auto) Eos % (Auto) Baso % (Auto) Lymph # (Auto) [place] # (Auto) Eos # (Auto) Baso # (Auto) Abs Immat Gran (auto) Absolute Neuts (auto) Absolute Nucleated RBC Nucleated RBC % (auto) Smear Tech's Comments PT 14.2 H INR 1.2 H Sodium Potassium Chloride Carbon Dioxide Anion Gap BUN Creatinine Estim Creat Clear Calc Estimated GFR Random Glucose Osmolality Lactic Acid Lactic Acid Fup @ 2Hr Calcium Magnesium Total Bilirubin Direct Bilirubin AST ALT Alkaline Phosphatase Ammonia Troponin I High Sens 13.5 Total Protein Albumin Lipase TSH Free T4 Urine Color Urine Appearance Urine pH Ur Specific [place] Urine Protein Urine Glucose (UA) Urine Ketones Urine Blood Urine Nitrite Ur Leukocyte Esterase Urine Osmolality Ur Random Sodium Urine Creatinine Salicylates Urine Opiates Screen Acetaminophen Ur Barbiturates Screen Ur Phencyclidine Scrn Ur Amphetamines Screen U Benzodiazepines Scrn Urine Cocaine Screen U Marijuana (THC) Screen Ethyl Alcohol COVID-19 (GAUTAM) COVID-19 Clin Com Hepatitis A IgM Ab Cancelled Hep Bs Antigen Cancelled Hep Bs Antibody Cancelled Hep B Core Total Ab Cancelled Hepatitis C Ab (EIA) Cancelled 01/10/21 01/10/21 01/10/21 05:25 05:25 05:25 WBC RBC Hgb Hct MCV MCH MCHC RDW Plt Count MPV Immature Gran % (Auto) Neut % (Auto) Lymph % (Auto) [place] % (Auto) Eos % (Auto) Baso % (Auto) Lymph # (Auto) [place] # (Auto) Eos # (Auto) Baso # (Auto) Abs Immat Gran (auto) Absolute Neuts (auto) Absolute Nucleated RBC Nucleated RBC % (auto) Smear Tech's Comments PT INR Sodium 131 L Potassium 3.6 Chloride 99 Carbon Dioxide 23 Anion Gap 13 BUN < 2 L Creatinine 0.85 Estim Creat Clear Calc 113.8 Estimated GFR > 60 Random Glucose 249 H D Osmolality Lactic Acid Lactic Acid Fup @ 2Hr Calcium 7.9 L Magnesium Total Bilirubin 23.3 H Direct Bilirubin 18.9 H AST 159 H ALT 49 H Alkaline Phosphatase 437 H D Ammonia Troponin I High Sens Total Protein 4.5 L Albumin 2.3 L Lipase TSH 0.42 Free T4 0.88 Urine Color Urine Appearance Urine pH Ur Specific [place] Urine Protein Urine Glucose (UA) Urine Ketones Urine Blood Urine Nitrite Ur Leukocyte Esterase Urine Osmolality Ur Random Sodium Urine Creatinine Salicylates Urine Opiates Screen Acetaminophen Ur Barbiturates Screen Ur Phencyclidine Scrn Ur Amphetamines Screen U Benzodiazepines Scrn Urine Cocaine Screen U Marijuana (THC) Screen Ethyl Alcohol COVID-19 (GAUTAM) COVID-19 Clin Com Hepatitis A IgM Ab Hep Bs Antigen Hep Bs Antibody Hep B Core Total Ab Hepatitis C Ab (EIA) 01/10/21 01/10/21 05:25 05:26 WBC 5.7 RBC 3.04 L Hgb 11.2 L Hct 31.4 L MCV 103.3 H MCH 36.8 H MCHC 35.7 RDW 17.0 H Plt Count 136 L MPV 12.3 Immature Gran % (Auto) 2.1 H Neut % (Auto) 84.5 H Lymph % (Auto) 7.0 L [place] % (Auto) 6.1 Eos % (Auto) 0.0 Baso % (Auto) 0.3 Lymph # (Auto) 0.4 L [place] # (Auto) 0.4 Eos # (Auto) 0.0 Baso # (Auto) 0.0 Abs Immat Gran (auto) 0.12 H Absolute Neuts (auto) 4.8 Absolute Nucleated RBC 0.020 H Nucleated RBC % (auto) 0.3 H Smear Tech's Comments VERIFIED PT INR Sodium Potassium Chloride Carbon Dioxide Anion Gap BUN Creatinine Estim Creat Clear Calc Estimated GFR Random Glucose Osmolality Lactic Acid Lactic Acid Fup @ 2Hr Calcium Magnesium 1.6 Total Bilirubin Direct Bilirubin AST ALT Alkaline Phosphatase Ammonia Troponin I High Sens Total Protein Albumin Lipase TSH Free T4 Urine Color Urine Appearance Urine pH Ur Specific [place] Urine Protein Urine Glucose (UA) Urine Ketones Urine Blood Urine Nitrite Ur Leukocyte Esterase Urine Osmolality Ur Random Sodium Urine Creatinine Salicylates Urine Opiates Screen Acetaminophen Ur Barbiturates Screen Ur Phencyclidine Scrn Ur Amphetamines Screen U Benzodiazepines Scrn Urine Cocaine Screen U Marijuana (THC) Screen Ethyl Alcohol COVID-19 (GAUTAM) COVID-19 Clin Com Hepatitis A IgM Ab Hep Bs Antigen Hep Bs Antibody Hep B Core Total Ab Hepatitis C Ab (EIA) Quality Stroke Does the patient have a stroke diagnosis?: No VTE Prior VTE?: No VTE Risk Level:: Medical - moderate - high VTE Device Contraindication: N/A - Device Ordered VTE Drug Contraindication: Patient Refused Assessment and Plan (1) Alcoholic hepatitis: Status: Acute (2) Alcohol dependence with withdrawal: Status: Acute (3) Atrial fibrillation with rapid ventricular response: Status: Acute (4) Acute hyponatremia: Status: Acute Assessment and Plan: 55M presented with jaundice, found to have acute alcoholic hepatitis and afib with rvr acute alcoholic hepatitis prednisone high protein diet GI following monitor labs follow up viral hepatitis panel (less likely) no evidence of obstructive jaundice, will dc MRI hyponatremia poor solute intake, primary polydypsia dc hypotonic fluids monitor afib with rvr converted to NSR dc diltiazem drip follow up echo, cardio alcohol dependence with withdrawl phenobarb protocol care team damari
--- NOTE | 2021-01-10 09:30 | CA_ITS ---
Transthoracic Echocardiogram Patient (Last, First, Middle): Abner Galvan, Gender: Male Date of : 1965 Age: 55 Procedure Date: 01/10/2021 Procedure Type: Transthoracic Echocardiogram Location: [facility] [place] Height: 177.8 cm Weight: 90.72 kg BSA: 2.09 m2 Heart Rate: bpm BP: 100 / 69 mmHg Clinical Unit Educator: BENNIE Referring MD: Bruce Pepe MD Symptoms: new afib Study Quality: Good ECG Rhythm: Sinus Conclusions: - The left ventricular systolic function is low normal. The calculated ejection fraction is 53% by biplane method. - No obvious valvular pathology seen on this study. Findings Left Ventricle Normal left ventricular cavity size. There is normal left ventricular wall thickness. The left ventricular systolic function is low normal. The calculated ejection fraction is 53% by biplane method. There is no evidence of regional wall motion abnormalities. Diastolic function is normal for age. Right Ventricle Normal right ventricular cavity size and systolic function. Atria Both atria are normal in size. Aortic Valve There is a normal trileaflet aortic valve. There is no aortic valve stenosis. There is no aortic valve regurgitation. Mitral Valve The mitral valve appears normal. There is trace mitral valve regurgitation. There is no mitral valve stenosis. Pulmonic Valve The pulmonic valve is likely normal. Tricuspid Valve Normal tricuspid valve structure. There is no tricuspid valve regurgitation. Tricuspid regurgitation envelope is inadequate for calculation of right ventricular systolic pressure. Great Vessels The aortic annulus, sinuses of valsalva, and asc aorta are normal in size. Venous The inferior vena cava is normal in size and collapses greater than 50% with inspiration. Pericardium/Pleural There is no evidence of pericardial effusion. Prior Study Comparison No prior study available for comparison. Recommendations, Care & Conclusions No obvious valvular pathology seen on this study. Measurements 2D Linear Measurements IVSd: 0.99 0.6-0.9/0.6-1.0 cm LVIDd: 5.20 3.9-5.3/4.2-5.9 cm LVIDd Index: 2.49 2.4-3.2/2.2-3.1 cm/m2 LVIDs: 3.83 2.0-3.6 cm LVPWd: 0.99 0.7-1.1 cm Ao Root: 4.40 2.1-3.5 cm LA Diam: 4.20 2.7-3.8/3.0-4.0 cm LAIDs Index: 2.01 1.5-2.3 cm/m2 LV Mass: 239.85 67-162/88-224 g LV Mass Index: 114.76 43-95/49-115 g/m2 LVOT Diam: 2.40 3.0+(-)1.3 cm 2D Systolic Function EF 4C: 49.50 >55% EF 2C: 54.10 >55% EF BiP: 52.80 >55% Mitral Valve MV Pk E: 0.65 MV PK A: 0.42 MV Decel Time: 443.00 E/A: 1.60 E'Lateral: 9.57 E'Medial: 9.90 E/E' Med: 6.60 E/E' Lat: 6.80 PHT: 130.00 MVA PHT: 1.69 Decel [place]: 1.47 Aortic Valve AoV Pk Justice: 0.88 AoV Mn Justice: 0.61 AoV VTI: 0.16 AoV Pk Grad: 3.00 Aov Mn Grad: 2.00 LYNETTE Cont.VTI: 4.94 LVOT LVOT Pk Justice: 0.87 LVOT Mn Justice: 0.61 LVOT VTI: 0.18 LVOT Pk Grad: 3.00 LVOT Mn Grad: 2.00 LVOT Diam: 2.40 LVOT Area: 4.52 Diastolic Function MV Pk E: 0.65 MV Pk A: 0.42 E/A: 1.60 E'Medial: 9.90 E/E' Med: 6.60 E' Laterial: 9.57 E/E' Lat: 6.80 Tricuspid Valve RA Press: 3.00 Great Vessels Aorta Ao Root-2D: 4.40 2.0-3.7 cm Ao Asc: 3.60 2.1-3.4 cm Ao Arch: 2.60 Updated in Other Vendor System with Status of Final Justen Rojas MD electronically signed on 01/10/2021 2:51:54 PM with status of Final
--- NOTE | 2021-01-10 09:50 | P.CONCA_ITS ---
History of Present Illness History of Present Illness Date of Service: 01/10/21 Consult reason: atrial fibrillation Chief complaint: Afib with RVR Narrative: This is a cardiology consultation regarding atrial fibrillation. He does not have any known cardiac problems. No history of any coronary disease myocardial infarction or cardiomyopathy. He drinks vodka, about a bottle every few days. Admission to the hospital is mainly for jaundice. In this setting, he was found to be in atrial flutter with rapid rate and hence we have been asked to see him. Patient himself has no cardiac symptoms whatsoever including angina or shortness of breath or palpitations or anything else at all. He states that he has never had cardiac problems in his entire life. Nonsmoker. No illicit drugs. Review of Systems Review of Systems: Yes all other systems are reviewed and are negative Cardiovascular: Cardiovascular: Reports as per HPI, Reports no additional cardiovascular complaints, Denies acrocyanosis, Denies cool extremities, Denies painful fingertips, Denies chest pain, Denies chest pain at rest, Denies diaphoresis, Denies syncope, Denies irregular heart rhythm, Denies claudication, Denies leg edema, Denies lightheadedness, Denies palpitations and Denies dyspnea Respiratory: Respiratory: Denies dyspnea Neurologic: Denies syncope Endocrine: Endocrine: Denies palpitations PMFSH Past Medical History Medical History (Updated 01/10/21 @ 09:54 by Justen Rojas MD) Alcoholic hepatitis HTN (hypertension) Family History Family History (Updated 01/10/21 @ 09:52 by Justen Rojas MD) Father CAD (coronary artery disease) Social History Social History Household Members: None Housing: House Do you presently have visiting nurse or other home services: No Alcohol intake: current Alcohol intake frequency: 0-2 drinks per day Alcohol type: beer, wine, hard liquor and other Patient Tobacco Use Status: Never used Tobacco Smoked in Last 30 Days: No Use of substances other than those prescribed or required for medical reasons: No Currently Displaying Signs/Symptoms of Drug Intoxication Withdrawal: No Have you been hit, kicked, punched, or otherwise hurt by someone within the past year? If so, by whom?: No Do you feel safe in your current relationship?: No Current Relationship Is there a partner from a previous relationship who is making you feel unsafe now?: No Spiritual Healthcare Practices: no Episcopalian Healthcare Practices: no Cultural Healthcare Practices: no Advance Directives: No Advance Directives Information Provided: No Do you have thoughts of harming others: None Do you have a plan to hurt others: No Plan Recently lost weight without trying: No Eating poorly because of decreased appetite: Yes Nutrition Risks: No Nutritional Risk Poor oral hygiene: No Meds Allergies Allergy/AdvReac Type Severity Reaction Status Date / Time No Known Allergies Allergy Verified 01/09/21 12:30 [No Known Allergies*] Active Medications: Current Medications Generic Name Dose Route Start Last Admin Trade Name Freq PRN Reason Stop Dose Admin Acetaminophen 650 mg 01/09/21 20:03 Acetaminophen 325 Mg Tablet PO Q6H PRN Pain, Mild (Pain Scale 1-3) Cyanocobalamin 1,000 mcg 01/11/21 09:00 Cyanocobalamin (Vitamin B-12) 1,000 Mcg Tablet PO DAILY [facility] Enoxaparin Sodium 40 mg 01/10/21 07:15 01/10/21 09:07 Enoxaparin Sodium 40 Mg/0.4 Ml Syringe SUBCUT 40 mg Q24H EDWIN Administration Folic Acid 1 mg 01/10/21 09:00 01/10/21 09:10 Folic Acid 1 Mg Tablet PO 01/13/21 08:59 1 mg DAILY EDWIN Administration Magnesium Oxide 400 mg 01/10/21 17:30 Magnesium Oxide 400 Mg Tablet PO BIDPC EDWIN Medication 1 each 01/10/21 09:14 No Benzodiazepines MISCELLANE DAILY [facility] Melatonin 6 mg 01/09/21 20:03 Melatonin 3 Mg Tablet PO BEDTIME PRN Insomnia Multivitamins 1 tab 01/10/21 09:00 01/10/21 09:10 B-Complex With Vitamin C Tablet PO 1 tab DAILY [facility] Administration Pharmacy Consult 1 each 01/09/21 13:00 Consult Rx Perform Med Rec MISCELLANE ONCE PRN Consult order Phenobarbital 45 mg 01/11/21 09:00 Phenobarbital 15 Mg Tablet PO 01/12/21 21:01 BID [facility] Protocol Phenobarbital 30 mg 01/13/21 09:00 Phenobarbital 30 Mg Tablet PO 01/14/21 21:01 BID [facility] Protocol Phenobarbital 30 mg 01/15/21 09:00 Phenobarbital 30 Mg Tablet PO 01/16/21 09:01 DAILY [facility] Protocol Phenobarbital Sodium 175 mg 01/10/21 13:00 Phenobarbital Sodium 130 Mg/Ml Vial IM 01/10/21 16:01 Q3H [facility] Protocol Prednisone 40 mg 01/09/21 20:35 01/10/21 09:10 Prednisone 20 Mg Tablet PO 40 mg DAILY EDWIN Administration Senna 17.2 mg 01/09/21 20:03 Sennosides 8.6 Mg Tablet PO BEDTIME PRN Constipation Sodium Chloride 3 ml 01/10/21 00:00 01/10/21 09:10 0.9 % Sodium Chloride Flush 3 Ml Syringe IVFLUSH 3 ml QSHIFT [facility] Administration Thiamine HCl 100 mg 01/10/21 09:00 01/10/21 09:10 Thiamine Hcl 100 Mg Tablet PO 01/13/21 08:59 100 mg DAILY [facility] Administration Home Medications Medication Instructions Recorded Confirmed Last Taken Type ascorbic [id number] 1 ea PO DAILY 01/09/21 01/09/21 12/26/20 History [Emergen-C] Physical Exam Vital Signs: Vital Signs: Last Vital Signs Temp 97.6 F 01/10/21 07:14 Pulse 66 01/10/21 07:14 Resp 16 01/10/21 07:14 BP 109/72 01/10/21 07:14 Pulse Ox 97 01/10/21 07:14 Body Mass Index 28.7 Const: General: cooperative and no acute distress HENMT: Other: Unremarkable Neck: Neck: Yes normal visual inspection Chest: Chest palpation & inspection: normal inspection of the chest Resp: Auscultation: clear to auscultation bilaterally, no crackles and no wheezes Cardio: Jugular venous distension: no JVD Palpation: normal PMI Heart sounds: S1 normal heart sound present, S2 normal heart sound present, no gallops, no murmurs and no rubs GI: Palpation (GI): Soft to palpation Back/Spine/Pelvis: Other: unremarkable Skin: General skin exam: no rashes or lesions noted Neuro: Cranial nerves: Yes Other cranial nerve findings present Extrem: General: Yes no clubbing, cyanosis or edema Psych: Mental Status: other Results Labs and Meds Result diagrams: 01/10/21 05:26 01/10/21 05:25 Lab results: Laboratory Results - last 24 hr 01/09/21 01/09/21 01/09/21 13:47 13:47 13:47 WBC 8.0 RBC 3.60 L Hgb 13.2 L Hct 37.2 L MCV 103.3 H MCH 36.7 H MCHC 35.5 RDW 16.4 H Plt Count 153 L MPV 11.8 Immature Gran % (Auto) 2.1 H Neut % (Auto) 66.9 Lymph % (Auto) 18.7 L Catron % (Auto) 11.5 H Eos % (Auto) 0.3 Baso % (Auto) 0.5 Lymph # (Auto) 1.5 Catron # (Auto) 0.9 Eos # (Auto) 0.0 Baso # (Auto) 0.0 Abs Immat Gran (auto) 0.17 H Absolute Neuts (auto) 5.3 Absolute Nucleated RBC 0.000 Nucleated RBC % (auto) 0.0 Smear Tech's Comments PT 13.1 H INR 1.2 H Sodium 128 L Potassium 3.5 Chloride 89 L Carbon Dioxide 27 Anion Gap 16 BUN 2 L Creatinine 1.02 Estim Creat Clear Calc 94.8 Estimated GFR > 60 Random Glucose 171 H Osmolality Lactic Acid Lactic Acid Fup @ 2Hr Calcium 8.9 Magnesium 1.8 Total Bilirubin 29.1 H Direct Bilirubin 20.4 H AST 246 H ALT 65 H Alkaline Phosphatase 570 H Ammonia Troponin I High Sens Total Protein 5.6 L Albumin 2.8 L Lipase 14 TSH Free T4 Urine Color Urine Appearance Urine pH Ur Specific Williams Urine Protein Urine Glucose (UA) Urine Ketones Urine Blood Urine Nitrite Ur Leukocyte Esterase Urine Osmolality Ur Random Sodium Urine Creatinine Salicylates Urine Opiates Screen Acetaminophen Ur Barbiturates Screen Ur Phencyclidine Scrn Ur Amphetamines Screen U Benzodiazepines Scrn Urine Cocaine Screen U Marijuana (THC) Screen Ethyl Alcohol COVID-19 ([facility]) COVID-19 Clin Com Hepatitis A IgM Ab Hep Bs Antigen Hep Bs Antibody Hep B Core Total Ab Hepatitis C Ab (EIA) 01/09/21 01/09/21 01/09/21 13:47 13:47 13:47 WBC RBC Hgb Hct MCV MCH MCHC RDW Plt Count MPV Immature Gran % (Auto) Neut % (Auto) Lymph % (Auto) Catron % (Auto) Eos % (Auto) Baso % (Auto) Lymph # (Auto) Catron # (Auto) Eos # (Auto) Baso # (Auto) Abs Immat Gran (auto) Absolute Neuts (auto) Absolute Nucleated RBC Nucleated RBC % (auto) Smear Tech's Comments PT INR Sodium Potassium Chloride Carbon Dioxide Anion Gap BUN Creatinine Estim Creat Clear Calc Estimated GFR Random Glucose Osmolality Lactic Acid 2.8 H* Lactic Acid Fup @ 2Hr Calcium Magnesium Total Bilirubin Direct Bilirubin AST ALT Alkaline Phosphatase Ammonia Troponin I High Sens Total Protein Albumin Lipase TSH Free T4 Urine Color Urine Appearance Urine pH Ur Specific Williams Urine Protein Urine Glucose (UA) Urine Ketones Urine Blood Urine Nitrite Ur Leukocyte Esterase Urine Osmolality Ur Random Sodium Urine Creatinine Salicylates < 5.0 L Urine Opiates Screen Acetaminophen < 1 Ur Barbiturates Screen Ur Phencyclidine Scrn Ur Amphetamines Screen U Benzodiazepines Scrn Urine Cocaine Screen U Marijuana (THC) Screen Ethyl Alcohol < 10 COVID-19 ([facility]) COVID-19 Clin Com Hepatitis A IgM Ab Hep Bs Antigen Hep Bs Antibody Hep B Core Total Ab Hepatitis C Ab (EIA) 01/09/21 01/09/21 01/09/21 13:47 13:47 14:04 WBC RBC Hgb Hct MCV MCH MCHC RDW Plt Count MPV Immature Gran % (Auto) Neut % (Auto) Lymph % (Auto) Catron % (Auto) Eos % (Auto) Baso % (Auto) Lymph # (Auto) Catron # (Auto) Eos # (Auto) Baso # (Auto) Abs Immat Gran (auto) Absolute Neuts (auto) Absolute Nucleated RBC Nucleated RBC % (auto) Smear Tech's Comments PT INR Sodium Potassium Chloride Carbon Dioxide Anion Gap BUN Creatinine Estim Creat Clear Calc Estimated GFR Random Glucose Osmolality 278 L Lactic Acid Lactic Acid Fup @ 2Hr Calcium Magnesium Total Bilirubin Direct Bilirubin AST ALT Alkaline Phosphatase Ammonia Troponin I High Sens Total Protein Albumin Lipase TSH Free T4 Urine Color YELLOW Urine Appearance CLEAR Urine pH 6.0 Ur Specific Williams <= 1.005 Urine Protein NEG Urine Glucose (UA) NEG Urine Ketones NEG Urine Blood NEG Urine Nitrite NEG Ur Leukocyte Esterase NEG Urine Osmolality Ur Random Sodium Urine Creatinine Salicylates Urine Opiates Screen Acetaminophen Ur Barbiturates Screen Ur Phencyclidine Scrn Ur Amphetamines Screen U Benzodiazepines Scrn Urine Cocaine Screen U Marijuana (THC) Screen Ethyl Alcohol COVID-19 ([facility]) Negative COVID-19 Clin Com See Note Hepatitis A IgM Ab Hep Bs Antigen Hep Bs Antibody Hep B Core Total Ab Hepatitis C Ab (EIA) 01/09/21 01/09/21 01/09/21 14:04 14:04 14:04 WBC RBC Hgb Hct MCV MCH MCHC RDW Plt Count MPV Immature Gran % (Auto) Neut % (Auto) Lymph % (Auto) Catron % (Auto) Eos % (Auto) Baso % (Auto) Lymph # (Auto) Catron # (Auto) Eos # (Auto) Baso # (Auto) Abs Immat Gran (auto) Absolute Neuts (auto) Absolute Nucleated RBC Nucleated RBC % (auto) Smear Tech's Comments PT INR Sodium Potassium Chloride Carbon Dioxide Anion Gap BUN Creatinine Estim Creat Clear Calc Estimated GFR Random Glucose Osmolality Lactic Acid Lactic Acid Fup @ 2Hr Calcium Magnesium Total Bilirubin Direct Bilirubin AST ALT Alkaline Phosphatase Ammonia Troponin I High Sens Total Protein Albumin Lipase TSH Free T4 Urine Color Urine Appearance Urine pH Ur Specific Williams Urine Protein Urine Glucose (UA) Urine Ketones Urine Blood Urine Nitrite Ur Leukocyte Esterase Urine Osmolality 47 L Ur Random Sodium < 20.0 Urine Creatinine 24.52 Salicylates Urine Opiates Screen Not Detected Acetaminophen Ur Barbiturates Screen Not Detected Ur Phencyclidine Scrn Not Detected Ur Amphetamines Screen Not Detected U Benzodiazepines Scrn Not Detected Urine Cocaine Screen Not Detected U Marijuana (THC) Screen Not Detected Ethyl Alcohol COVID-19 ([facility]) COVID-19 Clin Com Hepatitis A IgM Ab Hep Bs Antigen Hep Bs Antibody Hep B Core Total Ab Hepatitis C Ab (EIA) 01/09/21 01/09/21 01/09/21 14:15 16:54 16:54 WBC RBC Hgb Hct MCV MCH MCHC RDW Plt Count MPV Immature Gran % (Auto) Neut % (Auto) Lymph % (Auto) Catron % (Auto) Eos % (Auto) Baso % (Auto) Lymph # (Auto) Catron # (Auto) Eos # (Auto) Baso # (Auto) Abs Immat Gran (auto) Absolute Neuts (auto) Absolute Nucleated RBC Nucleated RBC % (auto) Smear Tech's Comments PT INR Sodium 130 L Potassium 3.0 L Chloride 95 L Carbon Dioxide 25 Anion Gap 13 BUN 2 L Creatinine 0.75 Estim Creat Clear Calc 129.0 Estimated GFR > 60 Random Glucose 115 Osmolality Lactic Acid Lactic Acid Fup @ 2Hr 1.3 Calcium 8.2 L D Magnesium Total Bilirubin Direct Bilirubin AST ALT Alkaline Phosphatase Ammonia 58 H Troponin I High Sens Total Protein Albumin Lipase TSH Free T4 Urine Color Urine Appearance Urine pH Ur Specific Williams Urine Protein Urine Glucose (UA) Urine Ketones Urine Blood Urine Nitrite Ur Leukocyte Esterase Urine Osmolality Ur Random Sodium Urine Creatinine Salicylates Urine Opiates Screen Acetaminophen Ur Barbiturates Screen Ur Phencyclidine Scrn Ur Amphetamines Screen U Benzodiazepines Scrn Urine Cocaine Screen U Marijuana (THC) Screen Ethyl Alcohol COVID-19 ([facility]) COVID-19 Clin Com Hepatitis A IgM Ab Hep Bs Antigen Hep Bs Antibody Hep B Core Total Ab Hepatitis C Ab (EIA) 01/09/21 01/10/21 01/10/21 16:54 05:25 05:25 WBC RBC Hgb Hct MCV MCH MCHC RDW Plt Count MPV Immature Gran % (Auto) Neut % (Auto) Lymph % (Auto) Catron % (Auto) Eos % (Auto) Baso % (Auto) Lymph # (Auto) Catron # (Auto) Eos # (Auto) Baso # (Auto) Abs Immat Gran (auto) Absolute Neuts (auto) Absolute Nucleated RBC Nucleated RBC % (auto) Smear Tech's Comments PT 14.2 H INR 1.2 H Sodium Potassium Chloride Carbon Dioxide Anion Gap BUN Creatinine Estim Creat Clear Calc Estimated GFR Random Glucose Osmolality Lactic Acid Lactic Acid Fup @ 2Hr Calcium Magnesium Total Bilirubin Direct Bilirubin AST ALT Alkaline Phosphatase Ammonia Troponin I High Sens 13.5 Total Protein Albumin Lipase TSH Free T4 Urine Color Urine Appearance Urine pH Ur Specific Williams Urine Protein Urine Glucose (UA) Urine Ketones Urine Blood Urine Nitrite Ur Leukocyte Esterase Urine Osmolality Ur Random Sodium Urine Creatinine Salicylates Urine Opiates Screen Acetaminophen Ur Barbiturates Screen Ur Phencyclidine Scrn Ur Amphetamines Screen U Benzodiazepines Scrn Urine Cocaine Screen U Marijuana (THC) Screen Ethyl Alcohol COVID-19 ([facility]) COVID-19 Clin Com Hepatitis A IgM Ab Cancelled Hep Bs Antigen Cancelled Hep Bs Antibody Cancelled Hep B Core Total Ab Cancelled Hepatitis C Ab (EIA) Cancelled 01/10/21 01/10/21 01/10/21 05:25 05:25 05:25 WBC RBC Hgb Hct MCV MCH MCHC RDW Plt Count MPV Immature Gran % (Auto) Neut % (Auto) Lymph % (Auto) Catron % (Auto) Eos % (Auto) Baso % (Auto) Lymph # (Auto) Catron # (Auto) Eos # (Auto) Baso # (Auto) Abs Immat Gran (auto) Absolute Neuts (auto) Absolute Nucleated RBC Nucleated RBC % (auto) Smear Tech's Comments PT INR Sodium 131 L Potassium 3.6 Chloride 99 Carbon Dioxide 23 Anion Gap 13 BUN < 2 L Creatinine 0.85 Estim Creat Clear Calc 113.8 Estimated GFR > 60 Random Glucose 249 H D Osmolality Lactic Acid Lactic Acid Fup @ 2Hr Calcium 7.9 L Magnesium Total Bilirubin 23.3 H Direct Bilirubin 18.9 H AST 159 H ALT 49 H Alkaline Phosphatase 437 H D Ammonia Troponin I High Sens Total Protein 4.5 L Albumin 2.3 L Lipase TSH 0.42 Free T4 0.88 Urine Color Urine Appearance Urine pH Ur Specific Williams Urine Protein Urine Glucose (UA) Urine Ketones Urine Blood Urine Nitrite Ur Leukocyte Esterase Urine Osmolality Ur Random Sodium Urine Creatinine Salicylates Urine Opiates Screen Acetaminophen Ur Barbiturates Screen Ur Phencyclidine Scrn Ur Amphetamines Screen U Benzodiazepines Scrn Urine Cocaine Screen U Marijuana (THC) Screen Ethyl Alcohol COVID-19 ([facility]) COVID-19 Clin Com Hepatitis A IgM Ab Hep Bs Antigen Hep Bs Antibody Hep B Core Total Ab Hepatitis C Ab (EIA) 01/10/21 01/10/21 05:25 05:26 WBC 5.7 RBC 3.04 L Hgb 11.2 L Hct 31.4 L MCV 103.3 H MCH 36.8 H MCHC 35.7 RDW 17.0 H Plt Count 136 L MPV 12.3 Immature Gran % (Auto) 2.1 H Neut % (Auto) 84.5 H Lymph % (Auto) 7.0 L Catron % (Auto) 6.1 Eos % (Auto) 0.0 Baso % (Auto) 0.3 Lymph # (Auto) 0.4 L Catron # (Auto) 0.4 Eos # (Auto) 0.0 Baso # (Auto) 0.0 Abs Immat Gran (auto) 0.12 H Absolute Neuts (auto) 4.8 Absolute Nucleated RBC 0.020 H Nucleated RBC % (auto) 0.3 H Smear Tech's Comments VERIFIED PT INR Sodium Potassium Chloride Carbon Dioxide Anion Gap BUN Creatinine Estim Creat Clear Calc Estimated GFR Random Glucose Osmolality Lactic Acid Lactic Acid Fup @ 2Hr Calcium Magnesium 1.6 Total Bilirubin Direct Bilirubin AST ALT Alkaline Phosphatase Ammonia Troponin I High Sens Total Protein Albumin Lipase TSH Free T4 Urine Color Urine Appearance Urine pH Ur Specific Williams Urine Protein Urine Glucose (UA) Urine Ketones Urine Blood Urine Nitrite Ur Leukocyte Esterase Urine Osmolality Ur Random Sodium Urine Creatinine Salicylates Urine Opiates Screen Acetaminophen Ur Barbiturates Screen Ur Phencyclidine Scrn Ur Amphetamines Screen U Benzodiazepines Scrn Urine Cocaine Screen U Marijuana (THC) Screen Ethyl Alcohol COVID-19 ([facility]) COVID-19 Clin Com Hepatitis A IgM Ab Hep Bs Antigen Hep Bs Antibody Hep B Core Total Ab Hepatitis C Ab (EIA) ECG Attestation: I personally reviewed and interpreted this ECG as follows: Interpretation: EKG on arrival with atrial flutter at a rate of 147/Min. Currently in sinus rhythm on telemetry in the 60s. There are also areas of atrial fibrillation with rapid rate on telemeearlier. Imaging Radiologist's impression: Impressions Abdomen/Pelvis CT 01/09/21 12:55 IMPRESSION: Findings consistent with acute cholecystitis. No common bile duct dilatation and no pancreatic head mass appreciated. Head CT 01/09/21 12:55 IMPRESSION: No acute intracranial findings. Soft tissue swelling adjacent to the left posterior parietal bone and mild inflammatory changes in the sphenoid sinus. Assessment and Plan (1) Atrial flutter with rapid ventricular response: Status: Acute (2) Atrial fibrillation with rapid ventricular response: Status: Acute (3) Alcohol dependence with withdrawal: Qualifiers: Complication of substance-induced condition: uncomplicated Qualified Code(s): F10.230 - Alcohol dependence with withdrawal, uncomplicated Status: Acute (4) Alcoholic hepatitis: Qualifiers: Ascites presence: unspecified Qualified Code(s): K70.10 - Alcoholic hepatitis without ascites Status: Acute Currently in sinus. Atrial arrhythmias probably related to alcohol. Will need to assess for cardiomyopathy. Await echocardiogram. May use either cardizem or metoprolol but hold anticoagulation. Procedures Date of Service Date of Service: 01/10/21
[2021-01-10 09:53] LABS: Estimated Average Glucose 126 mg/dL
[2021-01-10 10:32] LABS: Vitamin B12 > 2000 pg/mL (200-900)
[2021-01-10] MEDS: PHENobarbitaL sodium 130 MG/ML VIAL 234 MG IM (10:42)
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
[2021-01-10] MEDS: PHENobarbitaL sodium 130 MG/ML VIAL 175 MG IM ×2 (13:21→16:18)
[2021-01-10] MEDS: dilTIAZem HCL CD 120 MG CAP.ER.DEG PO (13:21)
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
[2021-01-10] MEDS: Magnesium Oxide 400 MG TABLET PO (17:20)
[2021-01-10 19:21] LABS: Urea, Random Urine 30 mg/dL
[2021-01-11 03:25] VITALS: BP 99/59; PULSE 65; RESP 16; TEMP 36.6; O2SAT 97
[2021-01-11 07:09] LABS: INTERNATIONAL NORM RATIO 1.1 (0.9-1.1); Prothrombin Time 12.9 SEC (9.9-13.0)
[2021-01-11 07:18] LABS: Alanine Aminotransferase 48 U/L (0-40); Albumin Level 2.2 g/dL (3.5-5.0); Alkaline Phosphatase 393 U/L (39-117); Anion Gap 15 (12-20); Aspartate Amino Transferase 128 U/L (5-37); Blood Urea Nitrogen 6 mg/dL (9-16); Carbon Dioxide 21 mmol/L (22-29); Chloride 99 mmol/L (96-108); Creatinine Clr Calc Pharmacy 127.3; Estimated Glomerular Filt Rate > 60; Glucose Fasting 136 mg/dL (60-99); Iron 115 mcg/dL (45-160); Potassium 3.6 mmol/L (3.3-5.1); Sodium 131 mmol/L (135-145); Total Iron Binding Capacity < 132 mcg/dL (228-428); Total Protein 4.3 g/dL (6.5-8.0); Unsaturated Iron Binding < 17 ug/dL
[2021-01-11 07:31] VITALS: BP 97/59; PULSE 67; RESP 18; TEMP 36.1; O2SAT 98
[2021-01-11 07:33] LABS: Bilirubin Total 20.2 mg/dL (0.0-1.0)
[2021-01-11 07:36] LABS: Hematocrit 29.3 % (42-52); Hemoglobin 10.3 g/dl (14.0-18.0); Mean Corpuscular HGB Conc 35.2 g/dl (31.0-36.0); Mean Corpuscular Hemoglobin 37.1 pg (27.0-33.0); Mean Corpuscular Volume 105.4 fL (80-98); Mean Platelet Volume 12.4 fL (9.4-12.4); NRBC Pct Auto 0.3 /100WBC (0.0-0.2); Platelet Count 143 X10*3/uL (160-400); Red Blood Count 2.78 X10*6/uL (4.60-5.80); Red Cell Distribution Width 17.5 % (11.0-16.0); White Blood Count 11.2 X10*3/uL (4.8-10.8)
[2021-01-11 07:50] LABS: Bilirubin Direct 14.5 mg/dL (0.0-0.5)
[2021-01-11 08:02] VITALS: BP 104/72; PULSE 64
[2021-01-11 08:21] LABS: Ferritin 4593 ng/mL (20-250)
[2021-01-11 08:46] VITALS: BP 104/72; PULSE 74
[2021-01-11] MEDS: PHENobarbitaL 15 MG TABLET 45 MG PO (08:46)
[2021-01-11] MEDS: Magnesium Oxide 400 MG TABLET PO (08:46)
[2021-01-11] MEDS: Thiamine HCL 100 MG TABLET PO (08:46)
[2021-01-11] MEDS: predniSONE 20 MG TABLET 40 MG PO (08:46)
[2021-01-11] MEDS: 0.9 % Sodium Chloride Flush 3 ML SYRINGE IVFLUSH (08:46)
[2021-01-11] MEDS: Folic Acid 1 MG TABLET PO (08:46)
[2021-01-11] MEDS: Enoxaparin Sodium 40 MG/0.4 ML SYRINGE SUBCUT (08:46)
[2021-01-11] MEDS: dilTIAZem HCL CD 120 MG CAP.ER.DEG PO (08:46)
--- NOTE | 2021-01-11 10:43 | P.DS_ITS ---
DS: Providers Provider Date of Service: 01/11/21 Date of admission: 01/09/21 20:03 Primary care physician: None Physician Consults: 01/09/21 20:03 Consult to Cardiology Routine Consulting Provider: Justen Rojas Reason for consultation: Afib with RVR 01/09/21 20:09 Consult to Gastroenterology Routine Consulting Provider: Jarrod Rome Reason for consultation: Transaminitis; Icterus; T bili 29 01/10/21 09:18 Consult to Care Team Routine Comment: Reason for consultation: alcohol DS: Diagnosis Discharge Diagnosis (1) Atrial flutter with rapid ventricular response: Status: Acute (2) Atrial fibrillation with rapid ventricular response: Status: Acute (3) Alcohol dependence with withdrawal: Status: Acute (4) Alcoholic hepatitis: Status: Acute DS: Medications Discharge Medications Home Medications: Home Medications Medication Instructions Recorded Confirmed Emergen-C 1 ea PO DAILY 01/09/21 01/09/21 Previous Rx's Medication Instructions Recorded diltiazem HCl [Cardizem CD] 120 mg PO DAILY #30 cap 01/11/21 prednisone 40 mg PO DAILY #70 tab 01/11/21 DS: Summary Hospital Course Hospital Course: patient was admitted for acloholic hepatitis complicate dby alcohol dependence with withdrawl and new onset afib with RVR. he was treated with prednisone, phenobarbital, high protein diet, IV cardizem. patient converted to sinus rhythm, he was transitioned to diltiazem 120mg daily po, his echo was unremarkable, he was seen by cardiology who felt it was alochol induced and would not benefit from anticoagulation at this time. patient's hepatits showed signs of improvement. tbili decreased from 29 to 20, inr from 1.2 to 1.1. his appetite was good, had no abdominal pain. withdrawl symptoms also resolved. patient will be discharged home on prednisone taper, he will follow up with GI and get repeat labs in about a week. he is instructed to avoid all alcohol. Time Spent with Patient Time attestation: Total time spent providing and/or coordinating discharge services: Discharge coordination time: Greater than 30 minutes Quality: Stroke Does the patient have a stroke diagnosis?: No Physical Exam Vital Signs: Vital Signs: Last Vital Signs Temp 97 F 01/11/21 07:31 Pulse 74 01/11/21 08:46 Resp 18 01/11/21 07:31 BP 104/72 01/11/21 08:46 Pulse Ox 98 01/11/21 07:31 Body Mass Index 28.7 General: AO X 3, no acute distress Resp: CTA bilateral CVS: S1,S2,RRR GI: soft, non tender, non distended Neuro: motor grossly intact Psych: appropriate affect DS: Data Data Completed and Pending Labs on day of discharge: Laboratory Results - last 24 hr 01/09/21 01/11/21 01/11/21 14:04 05:24 05:24 WBC 11.2 H RBC 2.78 L Hgb 10.3 L Hct 29.3 L MCV 105.4 H MCH 37.1 H MCHC 35.2 RDW 17.5 H Plt Count 143 L MPV 12.4 Absolute Nucleated RBC 0.030 H Nucleated RBC % (auto) 0.3 H PT 12.9 INR 1.1 Sodium Potassium Chloride Carbon Dioxide Anion Gap BUN Creatinine Estim Creat Clear Calc Estimated GFR Fasting Glucose Calcium Iron TIBC % Saturation Unsat Iron Binding Ferritin Total Bilirubin Direct Bilirubin AST ALT Alkaline Phosphatase Total Protein Albumin Ur Random Urea 30 01/11/21 01/11/21 05:24 05:24 WBC RBC Hgb Hct MCV MCH MCHC RDW Plt Count MPV Absolute Nucleated RBC Nucleated RBC % (auto) PT INR Sodium 131 L Potassium 3.6 Chloride 99 Carbon Dioxide 21 L Anion Gap 15 BUN 6 L D Creatinine 0.76 Estim Creat Clear Calc 127.3 Estimated GFR > 60 Fasting Glucose 136 H Calcium 8.0 L Iron 115 TIBC < 132 L % Saturation TNP Unsat Iron Binding < 17 Ferritin 4593 H Total Bilirubin 20.2 H Direct Bilirubin 14.5 H AST 128 H ALT 48 H Alkaline Phosphatase 393 H Total Protein 4.3 L Albumin 2.2 L Ur Random Urea Preliminary micro results at discharge 01/09/21 14:18 Blood Culture - Preliminary Blood - Venous No growth after 24 hours. 01/09/21 13:47 Blood Culture - Preliminary Blood - Venous No growth after 24 hours. Discharge Plan Discharge Patient Disposition: Home, Self-Care Discharge Diagnosis: alcoholic hepatitis, afib, withdrawl Referrals: Jarrod Rome [Physician] - 1 Week Physician,None [Primary Care Provider] - 1 Week Discharge Medications: New diltiazem HCl [Cardizem CD] 120 mg Capsule,Extended Release 24hr 120 mg PO DAILY Qty: 30 RF: 0 prednisone 10 mg tablet 40 mg PO DAILY Qty: 70 RF: 0 Continued Emergen-C 1,000 mg Powder Effervescent In Packet 1 ea PO DAILY RF: 0 Discharge Orders: Discharge Order (Routine); Ordered 01/11/21 Ordered By: Soto Rodriguez Diet: other Activity on Discharge: As tolerated Stand Alone Forms: Patient Portal Discharge page Other Ambulatory Orders: Comprehensive Met. Panel (Routine) Timeframe: 1 Week Facility: [facility] - Location: Laboratory Ordered By: Soto Rodriguez Care Plan Goals: recovery Health Concerns: alcohol, afib Plan of Treatment: stop all alcohol, prednisone taper as prescribed, follow up with gastoreneterology and repeat labs, diltiazem for afib Assessment: see above
--- NOTE | 2021-01-11 11:17 | MHC.CM.PN ---
Patient D/C prior to CM interview w/patient. MD order home, self care. D/C plan is home w/care team resources.
--- NOTE | 2021-01-11 11:25 | P.PNCA_ITS ---
Subjective Subjective Date of Service: 01/11/21 Interval history: Feels well. No cardiac symptoms. Review of Systems Review of Systems Yes all other systems are reviewed and are negative Cardiovascular: Reports as per HPI, Reports no additional cardiovascular complaints, Denies acrocyanosis, Denies cool extremities, Denies painful fingertips, Denies chest pain, Denies chest pain at rest, Denies diaphoresis, Denies syncope, Denies irregular heart rhythm, Denies claudication, Denies leg edema, Denies lightheadedness, Denies palpitations and Denies dyspnea Respiratory: Denies dyspnea Denies syncope Endocrine: Denies palpitations Physical Exam Vital Signs: Last Vital Signs Temp 97 F 01/11/21 07:31 Pulse 74 01/11/21 08:46 Resp 18 01/11/21 07:31 BP 104/72 01/11/21 08:46 Pulse Ox 98 01/11/21 07:31 Body Mass Index 28.7 Const General: cooperative and no acute distress [facility] Other: Unremarkable Neck Neck: Yes normal visual inspection Chest Chest palpation & inspection: normal inspection of the chest Resp Auscultation: clear to auscultation bilaterally, no crackles and no wheezes Cardio Jugular venous distension: no JVD Palpation: normal PMI Heart sounds: S1 normal heart sound present, S2 normal heart sound present, no gallops, no murmurs and no rubs GI Palpation (GI): Soft to palpation Back/Spine/Pelvis Other: unremarkable Skin General skin exam: no rashes or lesions noted Neuro Cranial nerves: Yes Other cranial nerve findings present Extrem General: Yes no clubbing, cyanosis or edema Psych Mental Status: other Results Labs and Meds Result diagrams: 01/11/21 05:24 01/11/21 05:24 Lab results: Laboratory Results - last 24 hr 01/09/21 01/11/21 01/11/21 14:04 05:24 05:24 WBC 11.2 H RBC 2.78 L Hgb 10.3 L Hct 29.3 L MCV 105.4 H MCH 37.1 H MCHC 35.2 RDW 17.5 H Plt Count 143 L MPV 12.4 Absolute Nucleated RBC 0.030 H Nucleated RBC % (auto) 0.3 H PT 12.9 INR 1.1 Sodium Potassium Chloride Carbon Dioxide Anion Gap BUN Creatinine Estim Creat Clear Calc Estimated GFR Fasting Glucose Calcium Iron TIBC % Saturation Unsat Iron Binding Ferritin Total Bilirubin Direct Bilirubin AST ALT Alkaline Phosphatase Total Protein Albumin Ur Random Urea 30 01/11/21 01/11/21 05:24 05:24 WBC RBC Hgb Hct MCV MCH MCHC RDW Plt Count MPV Absolute Nucleated RBC Nucleated RBC % (auto) PT INR Sodium 131 L Potassium 3.6 Chloride 99 Carbon Dioxide 21 L Anion Gap 15 BUN 6 L D Creatinine 0.76 Estim Creat Clear Calc 127.3 Estimated GFR > 60 Fasting Glucose 136 H Calcium 8.0 L Iron 115 TIBC < 132 L % Saturation TNP Unsat Iron Binding < 17 Ferritin 4593 H Total Bilirubin 20.2 H Direct Bilirubin 14.5 H AST 128 H ALT 48 H Alkaline Phosphatase 393 H Total Protein 4.3 L Albumin 2.2 L Ur Random Urea Progress Note: A&P Assessment and plan (1) Atrial flutter with rapid ventricular response: Status: Acute (2) Atrial fibrillation with rapid ventricular response: Status: Acute (3) Alcohol dependence with withdrawal: Status: Acute (4) Alcoholic hepatitis: Status: Acute Assessment and Plan: Currently in sinus. Atrial arrhythmias probably related to alcohol. Echocardiogram does not show any evidence of cardiomyopathy. LVEF 53%. May con tinue diltiazem. No need for anticoagulation. Advised to avoid further alcohol use. Fall Risk Details Current Medications: Current Medications Generic Name Dose Route Start Last Admin Trade Name Freq PRN Reason Stop Dose Admin Acetaminophen 650 mg 01/09/21 20:03 Acetaminophen 325 Mg Tablet PO Q6H PRN Pain, Mild (Pain Scale 1-3) Diltiazem HCl 120 mg 01/10/21 12:30 01/11/21 08:46 Diltiazem Hcl Cd 120 Mg Cap.Er.Deg PO 120 mg DAILY EDWIN Administration Protocol Enoxaparin Sodium 40 mg 01/10/21 07:15 01/11/21 08:46 Enoxaparin Sodium 40 Mg/0.4 Ml Syringe SUBCUT 40 mg Q24H EDWIN Administration Folic Acid 1 mg 01/10/21 09:00 01/11/21 08:46 Folic Acid 1 Mg Tablet PO 01/13/21 08:59 1 mg DAILY EDWIN Administration Magnesium Oxide 400 mg 01/10/21 17:30 01/11/21 08:46 Magnesium Oxide 400 Mg Tablet PO 400 mg BIDPC [facility] Administration Medication 1 each 01/10/21 09:14 No Benzodiazepines MISCELLANE DAILY EDWIN Melatonin 6 mg 01/09/21 20:03 Melatonin 3 Mg Tablet PO BEDTIME PRN Insomnia Multivitamins 1 tab 01/10/21 09:00 01/11/21 08:46 B-Complex With Vitamin C Tablet PO 1 tab DAILY EDWIN Administration Pharmacy Consult 1 each 01/09/21 13:00 Consult Rx Perform Med Rec MISCELLANE ONCE PRN Consult order Phenobarbital 45 mg 01/11/21 09:00 01/11/21 08:46 Phenobarbital 15 Mg Tablet PO 01/12/21 21:01 45 mg BID EDWIN Administration Protocol Phenobarbital 30 mg 01/13/21 09:00 Phenobarbital 30 Mg Tablet PO 01/14/21 21:01 BID EDWIN Protocol Phenobarbital 30 mg 01/15/21 09:00 Phenobarbital 30 Mg Tablet PO 01/16/21 09:01 DAILY EDWIN Protocol Prednisone 40 mg 01/09/21 20:35 01/11/21 08:46 Prednisone 20 Mg Tablet PO 40 mg DAILY EDWIN Administration Senna 17.2 mg 01/09/21 20:03 Sennosides 8.6 Mg Tablet PO BEDTIME PRN Constipation Sodium Chloride 3 ml 01/10/21 00:00 01/11/21 08:46 0.9 % Sodium Chloride Flush 3 Ml Syringe IVFLUSH 3 ml QSHIFT EDWIN Administration Thiamine HCl 100 mg 01/10/21 09:00 01/11/21 08:46 Thiamine Hcl 100 Mg Tablet PO 01/13/21 08:59 100 mg DAILY EDWIN Administration Time Spent With Patient Time: Total time spent is greater than 50% in coordination of care (as documented) at patient's floor/unit and/or counseling patient: Time with patient: less than 15 minutes Progress Note: Quality Stroke Does the patient have a stroke diagnosis?: No Procedures Date of Service Date of Service: 01/11/21
[2021-01-11 11:34] VITALS: BP 114/68; PULSE 70; RESP 18; TEMP 36.1; O2SAT 97
[2021-01-13 15:42] LABS: Anti Nuclear Antibody Screen NEGATIVE (NEGATIVE)
[2021-01-14 12:17] LABS: Mitochondrial Antibodies NEGATIVE (NEGATIVE)
[2021-01-15 11:17] LABS: Smooth Muscle Antibody <20 U (<20)
== END 2021-01-11 13:53 | disposition home or self-care (01) | DRG 280 ==
LOC: HO.ED 13:01 → HO.EDOVER 20:32 → HO.IMC 20:32
PROVIDERS: Internal Medicine Gastroenterology; Nurse Practitioner Family; Admitting Provider Hospitalist; Emergency Provider Emergency Medicine; Visit Provider Internal Medicine
DX: K70.10 Alcoholic hepatitis without ascites (principal); E87.1 Hypo-osmolality and hyponatremia; E86.0 Dehydration; I48.91 Unspecified atrial fibrillation; F10.239 Alcohol dependence with withdrawal, unspecified; Z20.822 Contact with and (suspected) exposure to COVID-19; Z79.899 Other long term (current) drug therapy
CPT/HCPCS: 36415; 70450; 74177; 80048; 80076; 80143; 80179; 80307; 81003; 82077; 82140; 82607; 82728; 83036; 83540; 83605; 83690; 83735; 83930; 83935; 84300; 84439; 84443; 84484; 84540; 85025; 85027; 85610; 86038; 86039; 86255; 86256; 86704; 86706; 86709; 86803; 87040; 87340; 87635; 93005; 93306; 99285; J1650; J2543; J2560; Q9967

== ENCOUNTER 2021-01-17 07:38 | Outpatient (REF) | payer MEDICAID, SELFPAY ==
[2021-01-17 09:33] LABS: Alanine Aminotransferase 108 U/L (0-40); Albumin Level 2.7 g/dL (3.5-5.0); Alkaline Phosphatase 464 U/L (39-117); Anion Gap 12 (12-20); Aspartate Amino Transferase 158 U/L (5-37); Bilirubin Total 13.2 mg/dL (0.0-1.0); Blood Urea Nitrogen 10 mg/dL (9-16); Calcium 8.3 mg/dL (8.4-10.2); Carbon Dioxide 29 mmol/L (22-29); Chloride 99 mmol/L (96-108); Estimated Glomerular Filt Rate > 60; Glucose Random 109 mg/dL (60-115); Potassium 4.3 mmol/L (3.3-5.1); Sodium 136 mmol/L (135-145); Total Protein 5.5 g/dL (6.5-8.0)
== END 2021-01-17 07:39 | disposition home or self-care (01) ==
LOC: HO.LAB 07:38
PROVIDERS: Visit Provider Internal Medicine
DX: K70.10 Alcoholic hepatitis without ascites (principal)
CPT/HCPCS: 36415; 80053

== ENCOUNTER 2021-10-23 10:24 | Inpatient (IN) | payer MEDICAID, SELFPAY ==
[2021-10-23] VITALS (8 sets, daily range): BP systolic 122–172; BP diastolic 64–103; PULSE 107–163; RESP 16–24; TEMP 36.7–36.8; O2SAT 94–98; BMI 30.1; BMI 30.9
--- NOTE | ~2021-10-23 | XR_ITS ---
EXAMINATION: XR CHEST CLINICAL INFORMATION: A Fib COMPARISON: March 02, 2020 TECHNIQUE: AP portable view of the chest was obtained. FINDINGS: No significant abnormality is noted involving the heart, lungs, mediastinum, bony thorax or soft tissues. XR/XR chest 1V IMPRESSION: No acute disease.
--- NOTE | 2021-10-23 10:31 | ECG_ITS ---
Test Reason : ?afib Blood Pressure : / mmHG Vent. Rate : 171 BPM Atrial Rate : 000 BPM P-R Int : 000 ms QRS Dur : 092 ms QT Int : 264 ms P-R-T Axes : 000 047 047 degrees QTc Int : 445 ms Atrial fibrillation with rapid ventricular response with premature ventricular or aberrantly conducted complexes Nonspecific ST and T wave abnormality Abnormal ECG When compared with ECG of 09-JAN-2021 17:20, Atrial fibrillation has replaced Atrial flutter ST no longer elevated in Inferior leads ST now depressed in Lateral leads Nonspecific T wave abnormality has replaced inverted T waves in Inferior leads Referred By: Generic ED Physician Electronically Signed By:BJ FLORES MD
[2021-10-23 10:47] LABS: MANUAL DIFF FLAG NO
[2021-10-23 10:52] LABS: Basophils Absolute Auto 0.1 X10*3/uL (0.0-0.2); Basophils Percent Auto 0.7 % (0-2); Eosinophils Percent Auto 0.3 % (0-4); Hematocrit 44.1 % (42.0-52.0); Imm Gran Abs Auto 0.03 X10*3/uL (0.00-0.03); Imm Gran Pct Auto 0.4 % (0.0-0.4); Lymphocytes Absolute Auto 1.3 X10*3/uL (1.2-4.9); Lymphocytes Percent Auto 18.3 % (20-40); Mean Corpuscular Hemoglobin 34.6 pg (27.0-33.0); Mean Corpuscular Volume 101.8 fL (80.0-98.0); Mean Platelet Volume 9.5 fL (9.4-12.4); Monocytes Absolute Auto 0.7 X10*3/uL (0.1-1.2); Monocytes Percent Auto 9.9 % (2-11); Neutrophils Absolute Auto 5.1 x10*3/uL (2.0-8.3); Neutrophils Percent Auto 70.4 % (45-73); Platelet Count 178 X10*3/uL (160-400); Red Blood Count 4.33 X10*6/uL (4.60-5.80); Red Cell Distribution Width 12.8 % (11.0-16.0); White Blood Count 7.2 X10*3/uL (4.8-10.8)
--- NOTE | 2021-10-23 10:56 | ECG_ITS ---
Test Reason : irregular hr Blood Pressure : / mmHG Vent. Rate : 115 BPM Atrial Rate : 000 BPM P-R Int : 000 ms QRS Dur : 100 ms QT Int : 300 ms P-R-T Axes : 000 054 023 degrees QTc Int : 415 ms Atrial fibrillation with rapid ventricular response with premature ventricular or aberrantly conducted complexes Nonspecific ST abnormality Abnormal ECG When compared to the previous EKG of Vent. rate has decreased Referred By: Cornel Ann Electronically Signed By:BJ FLORES MD
--- NOTE | 2021-10-23 10:58 | ED.ARRPALP ---
HPI - Arrhythmia/Palpitations General Chief Complaint: Arrhythmia/Palpitations Stated Complaint: abd ekg afib Time Seen by Provider: 10/23/21 10:55 Source: patient Mode of arrival: ambulatory Limitations: no limitations History of Present Illness HPI narrative: 56 year old male presents to the ED after going for a work physical patient was found to be in atrial fibrillation with a rapid rate in the 170s to 190s patient continues at that right now. Patient has not seen a doctor for several years he has strong smell of alcohol on arrival patient denies chest pain or palpitations. States he has no history of atrial fibrillation denies any falls or injuries he is on any blood thinners. He does admit to drinking last night complaint: rapid heart beat and atrial fibrillation Onset (ago): minute(s) Related Data Home Medications Medication Instructions Recorded Confirmed ascorbic acid 1,000 1 ea PO DAILY 01/09/21 01/09/21 [id number] powder effervescent pack (Emergen-C) Previous Rx's Medication Instructions Recorded diltiazem HCl 120 mg 120 mg PO DAILY #30 cap 01/11/21 capsule,extended release 24 hr (Cardizem CD) prednisone 10 mg tablet 40 mg PO DAILY #70 tab 01/11/21 Allergies Allergy/AdvReac Type Severity Reaction Status Date / Time No Known Allergies Allergy Verified 01/09/21 12:30 [No Known Allergies*] Review of Systems Review of Systems: Review of systems: General: Patient denies any fever chills recent illness or falls Musculoskeletal: Denies back pain or body aches or other injuries HEENT: denies headache, runny nose, ear pain Respiratory: denies shortness of breath, cough Cardiovascular: no chest pain or palpitations : denies dysuria, frequency Abdomen: no nausea vomiting denies abdominal pain Extremities: no swelling, no pain Skin: no diaphoresis Yes all other systems are reviewed and are negative [facility] Past Medical History Medical History (Updated 10/23/21 @ 12:08 by Cornel Ann DO) Alcoholic hepatitis HTN (hypertension) Family History Family History (Updated 01/10/21 @ 09:52 by Justen Rojas MD) Father CAD (coronary artery disease) Social History Social History Household Members: None Housing: House Do you presently have visiting nurse or other home services: No Alcohol intake: current Alcohol intake frequency: 0-2 drinks per day Alcohol type: beer, wine, hard liquor and other Patient Tobacco Use Status: Never used Tobacco Advance Directives: No Advance Directives Information Provided: No Physical Exam Vital Signs: Vital Signs: Last Vital Signs Temp 98.2 F 10/23/21 10:46 Pulse 125 H 10/23/21 11:33 Resp 24 H 10/23/21 11:33 BP 133/102 H 10/23/21 11:33 Pulse Ox 98 10/23/21 11:33 BMI result Body Mass Index 30.1 General: Strong alcoholic halitosis Well-appearing well-nourished in no signs of distress HEENT: Normocephalic atraumatic Neck: No signs of JVD, no masses no tenderness or lymphadenopathy Cardiovascular: Irregularly irregular Respiratory: Clear to auscultation bilaterally Abdomen: Soft nontender no masses rectal exam performed guiac negative quality assurance lab technician confirmed. Extremities: Normal pedal pulses no signs of edema Skin: Dry warm no rashes Back: No tenderness full ROM MDM - Arrhythmia/Palpitations MDM Narrative Medical decision making narrative: Patient with obvious atrial fibrillation with a rapid rate here I will give patient diltiazem IV and orally I will give the patient fluids will check labs and get the patient had a Lovenox. Patient obviously intoxicated but the patient see well a helmet the patient to Medicine for AFib with RVR heart rate is better after the 1st dose with plasm with the patient likely needs to be anticoagulated and get an echo to make sure he does not have a big clot. Differential Diagnosis Differential diagnosis: Likely artial fibrillation and artial flutter Medical Records Attestation: I reviewed the patient's medical records. Lab Data Result diagrams: 10/23/21 11:20 10/23/21 11:20 Labs: Lab Results 10/23/21 10/23/21 10/23/21 Range/Units 10:41 10:41 10:41 WBC 7.2 (4.8-10.8) X10*3/uL RBC 4.33 L (4.60-5.80) X10*6/uL Hgb 15.0 (14.0-18.0) g/dl Hct 44.1 (42.0-52.0) % MCV 101.8 H (80.0-98.0) fL MCH 34.6 H (27.0-33.0) pg MCHC 34.0 (31.0-36.0) g/dl RDW 12.8 (11.0-16.0) % Plt Count 178 (160-400) X10*3/uL MPV 9.5 (9.4-12.4) fL Immature Gran % (Auto) 0.4 (0.0-0.4) % Neut % (Auto) 70.4 (45-73) % Lymph % (Auto) 18.3 L (20-40) % [place] % (Auto) 9.9 (2-11) % Eos % (Auto) 0.3 (0-4) % Baso % (Auto) 0.7 (0-2) % Lymph # (Auto) 1.3 (1.2-4.9) X10*3/uL [place] # (Auto) 0.7 (0.1-1.2) X10*3/uL Eos # (Auto) 0.0 (0.0-0.4) X10*3/uL Baso # (Auto) 0.1 (0.0-0.2) X10*3/uL Abs Immat Gran (auto) 0.03 (0.00-0.03) X10*3/uL Absolute Neuts (auto) 5.1 (2.0-8.3) x10*3/uL Absolute Nucleated RBC 0.000 (0.0-0.012) X10*3/uL Nucleated RBC % (auto) 0.0 (0.0-0.2) /100WBC PT (9.9-13.0) SEC INR (0.9-1.1) APTT (24.1-38.0) SEC Sodium 141 (135-145) mmol/L Potassium 4.3 (3.3-5.1) mmol/L Chloride 107 (96-108) mmol/L Carbon Dioxide 20 L (22-29) mmol/L Anion Gap 18 (12-20) BUN 10 (9-16) mg/dL Creatinine 0.94 (0.5-1.4) mg/dL Estim Creat Clear Calc 104.0 Estimated GFR > 60 Random Glucose 140 H (60-115) mg/dL Calcium 8.7 (8.4-10.2) mg/dL Troponin I High Sens 13.9 (<3.5-35.0) ng/L Ethyl Alcohol mg/dL COVID-19 ([facility]) (Negative) COVID-19 Clin Com 10/23/21 10/23/21 10/23/21 Range/Units 11:19 11:19 11:20 WBC (4.8-10.8) X10*3/uL RBC 4.44 L (4.60-5.80) X10*6/uL Hgb 15.5 (14.0-18.0) g/dl Hct 45.0 (42.0-52.0) % MCV 101.4 H (80.0-98.0) fL MCH 34.9 H (27.0-33.0) pg MCHC 34.4 (31.0-36.0) g/dl RDW 12.6 (11.0-16.0) % Plt Count (160-400) X10*3/uL MPV Not Reportable (9.4-12.4) fL Immature Gran % (Auto) (0.0-0.4) % Neut % (Auto) (45-73) % Lymph % (Auto) (20-40) % [place] % (Auto) (2-11) % Eos % (Auto) (0-4) % Baso % (Auto) (0-2) % Lymph # (Auto) (1.2-4.9) X10*3/uL [place] # (Auto) (0.1-1.2) X10*3/uL Eos # (Auto) (0.0-0.4) X10*3/uL Baso # (Auto) (0.0-0.2) X10*3/uL Abs Immat Gran (auto) (0.00-0.03) X10*3/uL Absolute Neuts (auto) (2.0-8.3) x10*3/uL Absolute Nucleated RBC (0.0-0.012) X10*3/uL Nucleated RBC % (auto) (0.0-0.2) /100WBC PT (9.9-13.0) SEC INR (0.9-1.1) APTT (24.1-38.0) SEC Sodium (135-145) mmol/L Potassium (3.3-5.1) mmol/L Chloride (96-108) mmol/L Carbon Dioxide (22-29) mmol/L Anion Gap (12-20) BUN (9-16) mg/dL Creatinine (0.5-1.4) mg/dL Estim Creat Clear Calc Estimated GFR Random Glucose (60-115) mg/dL Calcium (8.4-10.2) mg/dL Troponin I High Sens 15.6 (<3.5-35.0) ng/L Ethyl Alcohol mg/dL COVID-19 ([facility]) Negative (Negative) COVID-19 Clin Com See Note 10/23/21 10/23/21 10/23/21 Range/Units 11:20 11:20 11:20 WBC (4.8-10.8) X10*3/uL RBC (4.60-5.80) X10*6/uL Hgb (14.0-18.0) g/dl Hct (42.0-52.0) % MCV (80.0-98.0) fL MCH (27.0-33.0) pg MCHC (31.0-36.0) g/dl RDW (11.0-16.0) % Plt Count (160-400) X10*3/uL MPV (9.4-12.4) fL Immature Gran % (Auto) (0.0-0.4) % Neut % (Auto) (45-73) % Lymph % (Auto) (20-40) % [place] % (Auto) (2-11) % Eos % (Auto) (0-4) % Baso % (Auto) (0-2) % Lymph # (Auto) (1.2-4.9) X10*3/uL [place] # (Auto) (0.1-1.2) X10*3/uL Eos # (Auto) (0.0-0.4) X10*3/uL Baso # (Auto) (0.0-0.2) X10*3/uL Abs Immat Gran (auto) (0.00-0.03) X10*3/uL Absolute Neuts (auto) (2.0-8.3) x10*3/uL Absolute Nucleated RBC (0.0-0.012) X10*3/uL Nucleated RBC % (auto) (0.0-0.2) /100WBC PT 11.4 (9.9-13.0) SEC INR 1.0 (0.9-1.1) APTT 33.1 (24.1-38.0) SEC Sodium 142 (135-145) mmol/L Potassium 4.5 (3.3-5.1) mmol/L Chloride 107 (96-108) mmol/L Carbon Dioxide 20 L (22-29) mmol/L Anion Gap 20 (12-20) BUN 10 (9-16) mg/dL Creatinine 0.95 (0.5-1.4) mg/dL Estim Creat Clear Calc 102.9 Estimated GFR > 60 Random Glucose 131 H (60-115) mg/dL Calcium 9.0 (8.4-10.2) mg/dL Troponin I High Sens (<3.5-35.0) ng/L Ethyl Alcohol 210 mg/dL COVID-19 ([facility]) (Negative) COVID-19 Clin Com Discharge Plan Discharge Clinical Impression: Atrial fibrillation with rapid ventricular response, Alcohol intoxication Patient Disposition: Admitted As Inpatient Prescriptions: No Action Emergen-C 1,000 mg Powder Effervescent In Packet 1 ea PO DAILY 0RF diltiazem HCl [Cardizem CD] 120 mg Capsule,Extended Release 24hr 120 mg PO DAILY Qty: 30 0RF Protocol: Hold for SBP/HR < HOLD for SBP < : 90 HOLD for HR < : 60 prednisone 10 mg tablet 40 mg PO DAILY Qty: 70 0RF Rx Instructions: taper by 10mg weekly for 4 weeks
[2021-10-23 11:03] LABS: Anion Gap 18 (12-20); Blood Urea Nitrogen 10 mg/dL (9-16); Calcium 8.7 mg/dL (8.4-10.2); Carbon Dioxide 20 mmol/L (22-29); Chloride 107 mmol/L (96-108); Estimated Glomerular Filt Rate > 60; Glucose Random 140 mg/dL (60-115); Potassium 4.3 mmol/L (3.3-5.1); Sodium 141 mmol/L (135-145)
[2021-10-23] MEDS: Enoxaparin Sodium 100 MG/ML SYRINGE SUBCUT (11:03)
[2021-10-23] MEDS: dilTIAZem HCL 60 MG TABLET PO (11:04)
[2021-10-23] MEDS: dilTIAZem HCL 50 MG/10 ML VIAL 23.8135 MG IVPUSH (11:04)
[2021-10-23] MEDS: 0.9 % Sodium Chloride 1,000 ML 999 ML IV (11:10)
[2021-10-23 11:11] LABS: Troponin-I High Sensitivity 13.9 ng/L (<3.5-35.0)
[2021-10-23 11:36] LABS: Basophils Absolute Auto 0.1 X10*3/uL (0.0-0.2); Basophils Percent Auto 0.6 % (0-2); Eosinophils Percent Auto 0.1 % (0-4); Hemoglobin 15.5 g/dl (14.0-18.0); Imm Gran Abs Auto 0.09 X10*3/uL (0.00-0.03); Imm Gran Pct Auto 1.1 % (0.0-0.4); Lymphocytes Absolute Auto 1.2 X10*3/uL (1.2-4.9); Lymphocytes Percent Auto 15.5 % (20-40); MANUAL DIFF FLAG SCAN; Mean Corpuscular HGB Conc 34.4 g/dl (31.0-36.0); Mean Corpuscular Hemoglobin 34.9 pg (27.0-33.0); Mean Corpuscular Volume 101.4 fL (80.0-98.0); Monocytes Absolute Auto 0.7 X10*3/uL (0.1-1.2); Monocytes Percent Auto 8.4 % (2-11); Neutrophils Absolute Auto 5.9 x10*3/uL (2.0-8.3); Neutrophils Percent Auto 74.3 % (45-73); PLT CLUMP 1; Red Blood Count 4.44 X10*6/uL (4.60-5.80); Red Cell Distribution Width 12.6 % (11.0-16.0); SCAN SMEAR FLAG 1
[2021-10-23 11:41] LABS: COVID-19 Test Negative (Negative); IDNOW Serial# 16C4AD1C
[2021-10-23 11:43] LABS: Prothrombin Time 11.4 SEC (9.9-13.0)
[2021-10-23 11:44] LABS: Ethanol 210 mg/dL
[2021-10-23 11:46] LABS: Anion Gap 20 (12-20); Blood Urea Nitrogen 10 mg/dL (9-16); Carbon Dioxide 20 mmol/L (22-29); Chloride 107 mmol/L (96-108); Creatinine Clr Calc Pharmacy 102.9; Estimated Glomerular Filt Rate > 60; Glucose Random 131 mg/dL (60-115); Partial Thromboplastin Time 33.1 SEC (24.1-38.0); Potassium 4.5 mmol/L (3.3-5.1); Sodium 142 mmol/L (135-145)
[2021-10-23 11:53] LABS: Troponin-I High Sensitivity 15.6 ng/L (<3.5-35.0)
[2021-10-23 12:49] LABS: Platelet Count 168 X10*3/uL (160-400); SLIDE REVIEW VERIFIED
--- NOTE | 2021-10-23 13:59 | PHA.MEDREC ---
Pharmacy Consult ? Medication Reconciliation Pharmacy has completed the medication reconciliation. Pt states that he takes no prescription medications but tries to take emergen-c regularly. Graciela Fontaine, Angel[employer]
--- NOTE | 2021-10-23 15:01 | PM.IMHP ---
History of Present Illness Date of Service: 10/23/21 Chief Complaint: atrial fibrillation with RVR a 56 years old male with PMH of alcoholic hepatitis, HTN who presents to the hospital with new finding of AFib with RVR. The patient went for job Physical and while he was evaluated the noticed that he has rapid atrial fibrillation on EKG and he was asked to come to the emergency for further evaluation. The patient denies being aware of any similar condition even though it was described to him last time he was in the hospital as he developed AFib with RVR but given his low Walter Vasc score he did not require any blood thinners. He denies feeling any palpitation, shortness of breath, chest pain or heaviness, nausea or vomiting, change in bowel habit or urinary symptoms. The patient is unclear about his alcoholism history he denies drinking since the weekend but daily confirmed drinking 2 days ago or last night which she is not sure. He smells like alcohol but still denying any alcohol abuse. In the emergency he was started on Cardizem IV and p.o. with mild response. Admitted for further evaluation and treatment. Review of Systems Review of Systems: No fever, chills or weakness No chest pain, palpitation No shortness of breath or coughing No abdominal pain, nausea or vomiting No urinary symptoms No any rash or wounds [facility] Medical History Alcoholic hepatitis HTN (hypertension) Family History Father CAD (coronary artery disease) Social History Household Members: None Housing: House Do you presently have visiting nurse or other home services: No Alcohol intake: current Alcohol intake frequency: 0-2 drinks per day Alcohol type: beer, wine, hard liquor and other Patient Tobacco Use Status: Never used Tobacco Advance Directives: No Advance Directives Information Provided: No Meds Allergies Allergy/AdvReac Type Severity Reaction Status Date / Time No Known Allergies Allergy Verified 01/09/21 12:30 [No Known Allergies*] Active Medications: Current Medications Diltiazem HCl (Diltiazem Hcl 30 Mg Tablet) 30 mg PO QID [facility]; Protocol Magnesium Sulfate (Magnesium Sulfate/H2o) 2 gm in 50 mls @ 25 mls/hr IV ONCE ONE Stop: 10/23/21 16:55 Pharmacy Consult (Consult Rx Perform Med Rec) 1 each MISCELLANE ONCE PRN PRN Reason: Consult order Home Medications Medication Instructions Recorded Confirmed Last Taken Type ascorbic acid 1,000 1 ea PO DAILY 01/09/21 10/23/21 12/26/20 History [id number] powder effervescent pack ([facility]) Physical Exam Vital Signs and Narrative: Vital Signs: Last Vital Signs Temp 98.2 F 10/23/21 10:46 Pulse 117 H 10/23/21 14:32 Resp 20 10/23/21 14:32 BP 127/83 10/23/21 14:32 Pulse Ox 97 10/23/21 14:32 BMI result Body Mass Index 30.1 Const: Other: Constitutional : Alert, oriented, not in distress Neck : Normal inspection, Supple Cardiovascular : Irregular irregular, no JVP, no lower extremity edema, tachycardia Respiratory : fair bilateral air entry, no crackles, wheezes or rhonchi Gastrointestinal: soft, lax, Normal bowel sounds, Non tender Skin : Warm, Dry Neurological : Alert & oriented x3, No focal deficit , CN 2-12 within normal Results Labs CBC and Chem 7: 10/23/21 11:20 10/23/21 11:20 Labs: Laboratory Results - last 24 hr 10/23/21 10/23/21 10/23/21 10:41 10:41 10:41 MCV 101.8 H MCH 34.6 H MCHC 34.0 RDW 12.8 Plt Count 178 MPV 9.5 Immature Gran % (Auto) 0.4 Neut % (Auto) 70.4 Lymph % (Auto) 18.3 L [place] % (Auto) 9.9 Eos % (Auto) 0.3 Baso % (Auto) 0.7 Lymph # (Auto) 1.3 [place] # (Auto) 0.7 Eos # (Auto) 0.0 Baso # (Auto) 0.1 Abs Immat Gran (auto) 0.03 Absolute Neuts (auto) 5.1 Absolute Nucleated RBC 0.000 Nucleated RBC % (auto) 0.0 Smear Tech's Comments PT INR APTT Anion Gap 18 Estim Creat Clear Calc 104.0 Estimated GFR > 60 Random Glucose 140 H Calcium 8.7 Troponin I High Sens 13.9 Ethyl Alcohol COVID-19 ([facility]) COVID-19 Clin Com 10/23/21 10/23/21 10/23/21 11:19 11:19 11:20 MCV 101.4 H MCH 34.9 H MCHC 34.4 RDW 12.6 Plt Count 168 MPV Not Reportable Immature Gran % (Auto) 1.1 H Neut % (Auto) 74.3 H Lymph % (Auto) 15.5 L [place] % (Auto) 8.4 Eos % (Auto) 0.1 Baso % (Auto) 0.6 Lymph # (Auto) 1.2 [place] # (Auto) 0.7 Eos # (Auto) 0.0 Baso # (Auto) 0.1 Abs Immat Gran (auto) 0.09 H Absolute Neuts (auto) 5.9 Absolute Nucleated RBC 0.000 Nucleated RBC % (auto) 0.0 Smear Tech's Comments VERIFIED PT INR APTT Anion Gap Estim Creat Clear Calc Estimated GFR Random Glucose Calcium Troponin I High Sens 15.6 Ethyl Alcohol COVID-19 ([facility]) Negative COVID-19 Clin Com See Note 10/23/21 10/23/21 10/23/21 11:20 11:20 11:20 MCV MCH MCHC RDW Plt Count MPV Immature Gran % (Auto) Neut % (Auto) Lymph % (Auto) [place] % (Auto) Eos % (Auto) Baso % (Auto) Lymph # (Auto) [place] # (Auto) Eos # (Auto) Baso # (Auto) Abs Immat Gran (auto) Absolute Neuts (auto) Absolute Nucleated RBC Nucleated RBC % (auto) Smear Tech's Comments PT 11.4 INR 1.0 APTT 33.1 Anion Gap 20 Estim Creat Clear Calc 102.9 Estimated GFR > 60 Random Glucose 131 H Calcium 9.0 Troponin I High Sens Ethyl Alcohol 210 COVID-19 ([facility]) COVID-19 Clin Com Imaging Radiologist's Impressions: Impressions Chest X-Ray 10/23/21 11:55 IMPRESSION: No acute disease. Assessment and Plan (1) Atrial fibrillation with rapid ventricular response: Status: Acute (2) Alcohol intoxication: Status: Acute Plan a 56 years old male with PMH of alcoholic hepatitis, HTN who presents to the hospital with new finding of AFib with RVR. Atrial fibrillation with RVR Walter Vasc of 0 Start baby aspirin Start Cardizem IV and p.o. next [place] continue to monitor Alcoholism report drinking small amount Alcohol level 200 High risk for withdrawal, start CIWA and phenobarbital protocol advised complete abstinence from alcohol DVT PPX Lovenox patient will likely need to know as of hospital stay for treatment of AFib with RVR and high risk of withdrawal given high chance of decomposition. Quality Stroke Does the patient have a stroke diagnosis?: No VTE Prior VTE?: No VTE Risk Level:: Medical - moderate - high VTE Device Contraindication: Treatment Not Indicated VTE Drug Contraindication: N/A - Med Ordered
[2021-10-23] MEDS: dilTIAZem HCL 50 MG/10 ML VIAL 10 MG IVPUSH (15:15)
[2021-10-23] MEDS: Magnesium Sulfate/H2O 2 GM/50 ML PIGGYBACK IV (15:16)
[2021-10-23 15:19] LABS: Alanine Aminotransferase 41 U/L (0-40); Albumin Level 4.2 g/dL (3.5-5.0); Alkaline Phosphatase 86 U/L (39-117); Aspartate Amino Transferase 66 U/L (5-37); Bilirubin Direct 0.3 mg/dL (0.0-0.5); Bilirubin Total 0.8 mg/dL (0.0-1.0); Magnesium 1.7 mg/dL (1.6-2.6); Total Protein 7.2 g/dL (6.5-8.0)
[2021-10-23] MEDS: PHENobarbitaL 200 MG, PHENobarbitaL 30 MG 230 MG PO (15:46)
--- NOTE | 2021-10-23 16:31 | PC.NURSE ---
AWAITING ROOM ASSIGNMENT FOR [facility] ADMISSION, HE IS AWAKE AND MEDICATED FOR AFIB AND ACUTE ETOH WITHDRAWAL. HE HAS SOME BASELINE TREMORS
[2021-10-23] MEDS: dilTIAZem HCL 30 MG TABLET PO ×2 (17:35→19:45)
--- NOTE | 2021-10-23 18:42 | PC.NURSE ---
REPORT GIVEN FOR [facility] ADMISSION TRANSFER
--- NOTE | 2021-10-23 18:46 | MHC.CM.PN ---
CM met with admitted patient with bed assignment. Declines HCP. No PCP. Vax x2/boosted/Moderna 10/31,/11/29, 06/06. Lives alone. HX ETOH misuse. Pt denies excessive use. Unemployed. Lives alone. No DME/services. D/C plan is home. Pt states he will drive himself. Pt could benefit from CARE team/recovery. Pt needs PCP referral at discharge. CM to follow for d/c needs.
[2021-10-23] MEDS: 0.9 % Sodium Chloride Flush 3 ML SYRINGE IVFLUSH (19:45)
[2021-10-24 04:46] VITALS: BP 124/68; PULSE 112; RESP 18; TEMP 37; O2SAT 92
[2021-10-24] MEDS: Metoprolol Tartrate 5 MG/5 ML VIAL IVPUSH (06:13)
[2021-10-24 07:29] VITALS: BP 140/98; PULSE 120; RESP 20; TEMP 36.3; O2SAT 95
[2021-10-24] MEDS: Aspirin Enteric Coated 81 MG TABLET.DR PO (09:04)
[2021-10-24] MEDS: 0.9 % Sodium Chloride Flush 3 ML SYRINGE IVFLUSH ×3 (09:05→20:13)
[2021-10-24] MEDS: PHENobarbitaL 15 MG TABLET 45 MG PO ×2 (09:05→20:12)
[2021-10-24] MEDS: dilTIAZem HCL 125 MG in 0.9 % Sodium Chloride 100 ML 10 MG IVCONT (09:11)
--- NOTE | 2021-10-24 09:18 | PC.NURSE ---
Pt provided education about high fall risk and need for 1 assist supervise. Pt refusing bed alarm, turned off bed alarm after nurse set it. Pt retaught to ring call tillman for assistance to bathroom or getting up OOB.
[2021-10-24 11:10] VITALS: BP 138/80; PULSE 122; RESP 20; TEMP 36.4; O2SAT 95
[2021-10-24] MEDS: Apixaban 5 MG TABLET PO ×2 (12:21→20:12)
[2021-10-24] MEDS: Digoxin 0.5 MG/2 ML AMPUL 0.25 MG IVPUSH ×2 (12:21→17:48)
[2021-10-24] MEDS: Metoprolol Tartrate 25 MG TABLET PO ×3 (12:21→20:12)
--- NOTE | 2021-10-24 12:53 | HO.PM.IMPN ---
Subjective Subjective Date of Service: 10/24/21 Interval History: Seen and evaluated this morning Statin AFib with RVR with heart rate between 130-150 Denies any chest pain or shortness of breath No other overnight events Review of Systems No fever, chills or weakness No chest pain, palpitation No shortness of breath or coughing No abdominal pain, nausea or vomiting No urinary symptoms No any rash or wounds Physical Exam Vital Signs: Vital Signs: Last Vital Signs Temp 97.5 F 10/24/21 11:10 Pulse 122 H 10/24/21 11:10 Resp 20 10/24/21 11:10 BP 138/80 10/24/21 11:10 Pulse Ox 95 10/24/21 11:10 BMI result Body Mass Index 30.9 Const: Other: Constitutional : Alert, oriented, not in distress Neck : Normal inspection, Supple Cardiovascular : Irregular irregular, no JVP, no lower extremity edema, tachycardia Respiratory : fair bilateral air entry, no crackles, wheezes or rhonchi Gastrointestinal: soft, lax, Normal bowel sounds, Non tender Skin : Warm, Dry Neurological : Alert & oriented x3, No focal deficit , CN 2-12 within normal, mild intentional tremor Objective Data Active Medications Acetaminophen (Acetaminophen 325 Mg Tablet) 650 mg PO Q6H PRN PRN Reason: Pain, Mild (Pain Scale 1-3) Apixaban (Apixaban 5 Mg Tablet) 5 mg PO BID [facility] Last Admin: 10/24/21 12:21 Dose: 5 mg Documented by: SABINO Digoxin (Digoxin 0.5 Mg/2 Ml Ampul) 0.25 mg IVPUSH Q6H [facility] Stop: 10/24/21 17:31 Last Admin: 10/24/21 12:21 Dose: 0.25 mg Documented by: SABINO Digoxin (Digoxin 0.25 Mg Tablet) 0.25 mg PO DAILY [facility] Enoxaparin Sodium (Enoxaparin Sodium 40 Mg/0.4 Ml Syringe) 40 mg SUBCUT Q24H [facility] Last Admin: 10/23/21 15:42 Dose: Not Given Documented by: AMADA Non-Admin Reason: Duplicate Order Diltiazem HCl 125 mg/ Sodium (Chloride) 125 mls @ 0 mls/hr IVCONT .Q0M [facility]; Protocol Last Admin: 10/24/21 09:11 Dose: 10 mg/hr, 10 mls/hr Documented by: TOMASA Metoprolol Tartrate (Metoprolol Tartrate 25 Mg Tablet) 25 mg PO QID [facility]; Protocol Last Admin: 10/24/21 12:21 Dose: 25 mg Documented by: SABINO Ondansetron HCl (Ondansetron Hcl 4 Mg/2 Ml Vial) 4 mg IVPUSH Q8H PRN PRN Reason: Nausea and Vomiting Pharmacy Consult (Consult Rx Perform Med Rec) 1 each MISCELLANE ONCE PRN PRN Reason: Consult order Pharmacy Consult (Consult Rx Etoh Phenob Po Dose) 1 each MISCELLANE ONCE PRN; Protocol PRN Reason: Consult order Phenobarbital (Phenobarbital 15 Mg Tablet) 45 mg PO BID [facility]; Protocol Stop: 10/25/21 21:01 Last Admin: 10/24/21 09:05 Dose: 45 mg Documented by: TOMASA Phenobarbital (Phenobarbital 30 Mg Tablet) 30 mg PO BID [facility]; Protocol Stop: 10/27/21 21:01 Phenobarbital (Phenobarbital 30 Mg Tablet) 30 mg PO DAILY [facility]; Protocol Stop: 10/29/21 09:01 Sodium Chloride (0.9 % Sodium Chloride Flush 3 Ml Syringe) [facility] Last Admin: 10/24/21 09:05 Dose: 3 ml Documented by: TOMASA Labs CBC & Chem 7: 10/23/21 11:20 10/23/21 11:20 Labs: Laboratory Results - last 24 hr 10/23/21 11:20 Magnesium 1.7 Total Bilirubin 0.8 Direct Bilirubin 0.3 AST 66 H ALT 41 H Alkaline Phosphatase 86 D Total Protein 7.2 D Albumin 4.2 D Assessment and Plan (1) Alcohol dependence with withdrawal: Status: Acute (2) Atrial fibrillation with rapid ventricular response: Status: Acute Plan a 56 years old male with PMH of alcoholic hepatitis, HTN who presents to the hospital with new finding of AFib with RVR. Atrial fibrillation with RVR Walter Vasc of 0 start full anticoagulation with Eliquis for a plan of cardioversion Start Cardizem drip Metoprolol around the clock Load with digoxin Cardiology consult continue to monitor alcohol withdrawal continue CIWA and phenobarbital protocol advised complete abstinence from alcohol DVT PPX Lovenox patient will need to stay overnight for treatment of AFib with RVR and high risk of withdrawal given high chance of decomposition. Quality Stroke Does the patient have a stroke diagnosis?: No VTE Prior VTE?: No VTE Risk Level:: Medical - moderate - high VTE Device Contraindication: Treatment Not Indicated VTE Drug Contraindication: N/A - Med Ordered
--- NOTE | 2021-10-24 13:29 | MHC.CM.PN ---
PER ROUNDS PT TO BE DCD SAT PLAN IS HOME NO SERVCIES
--- NOTE | 2021-10-24 13:33 | PM.CNCAR ---
History of Present Illness History of Present Illness Date of Service: 10/24/21 Requesting physician: Titus Ordonez Consult reason: atrial fibrillation Chief complaint: Afib w/RVR Narrative: I was requested to see Abner in cardiology consultation today for atrial fibrillation with rapid ventricular response. Abner went yesterday for pre-employment physical exam yesterday was noted to be in atrial fibrillation rapid ventricular response. He was therefore advised to come to the emergency room for further evaluation. This confirmed the findings of atrial fibrillation rapid ventricular response. Patient has no idea that he had atrial fibrillation. He has no recent symptoms of exertional shortness of breath, chest pain, palpitations, irregular heartbeat, lightheadedness, syncope. He was started on IV Cardizem drip and remains tachycardic. Patient has prior history of alcohol abuse and prior history of alcohol withdrawal and dependence. Therefore currently is not on any oral anticoagulation. Patient was admitted last January with hyponatremia, alcohol withdrawal, alcoholic hepatitis as well as atrial fibrillation. He was seen by Dr. Rojas. Echocardiogram at that time showed LVEF of 53%. Review of Systems Review of Systems: Yes all other systems are reviewed and are negative [facility] Past Medical History Medical History Alcoholic hepatitis HTN (hypertension) Family History Family History Father CAD (coronary artery disease) Social History Social History Household Members: None Housing: Apartment Do you presently have visiting nurse or other home services: No Alcohol intake: current Alcohol intake frequency: 0-2 drinks per day Alcohol type: beer, wine, hard liquor and other Patient Tobacco Use Status: Never used Tobacco Use of substances other than those prescribed or required for medical reasons: No Currently Displaying Signs/Symptoms of Drug Intoxication Withdrawal: No Have you been hit, kicked, punched, or otherwise hurt by someone within the past year? If so, by whom?: No Do you feel safe in your current relationship?: No Current Relationship Is there a partner from a previous relationship who is making you feel unsafe now?: No Are you made to feel afraid or neglected: No Advance Directives: No Advance Directives Information Provided: No Do you have thoughts of harming others: None Do you have a plan to hurt others: No Plan Recently lost weight without trying: No Nutrition Risks: No Nutritional Risk service: No Current occupational status: unemployed Meds Allergies Allergy/AdvReac Type Severity Reaction Status Date / Time No Known Allergies Allergy Verified 01/09/21 12:30 [No Known Allergies*] Active Medications: Current Medications Acetaminophen (Acetaminophen 325 Mg Tablet) 650 mg PO Q6H PRN PRN Reason: Pain, Mild (Pain Scale 1-3) Apixaban (Apixaban 5 Mg Tablet) 5 mg PO BID [facility] Last Admin: 10/24/21 12:21 Dose: 5 mg Documented by: Digoxin (Digoxin 0.5 Mg/2 Ml Ampul) 0.25 mg IVPUSH Q6H [facility] Stop: 10/24/21 17:31 Last Admin: 10/24/21 12:21 Dose: 0.25 mg Documented by: Digoxin (Digoxin 0.25 Mg Tablet) 0.25 mg PO DAILY [facility] Enoxaparin Sodium (Enoxaparin Sodium 40 Mg/0.4 Ml Syringe) 40 mg SUBCUT Q24H [facility] Last Admin: 10/23/21 15:42 Dose: Not Given Documented by: Diltiazem HCl 125 mg/ Sodium (Chloride) 125 mls @ 0 mls/hr IVCONT .Q0M [facility]; Protocol Last Titration: 10/24/21 12:57 Dose: 5 mg/hr, 5 mls/hr Documented by: Metoprolol Tartrate (Metoprolol Tartrate 25 Mg Tablet) 25 mg PO QID [facility]; Protocol Last Admin: 10/24/21 12:21 Dose: 25 mg Documented by: Ondansetron HCl (Ondansetron Hcl 4 Mg/2 Ml Vial) 4 mg IVPUSH Q8H PRN PRN Reason: Nausea and Vomiting Pharmacy Consult (Consult Rx Perform Med Rec) 1 each MISCELLANE ONCE PRN PRN Reason: Consult order Pharmacy Consult (Consult Rx Etoh Phenob Po Dose) 1 each MISCELLANE ONCE PRN; Protocol PRN Reason: Consult order Phenobarbital (Phenobarbital 15 Mg Tablet) 45 mg PO BID [facility]; Protocol Stop: 10/25/21 21:01 Last Admin: 10/24/21 09:05 Dose: 45 mg Documented by: Phenobarbital (Phenobarbital 30 Mg Tablet) 30 mg PO BID [facility]; Protocol Stop: 10/27/21 21:01 Phenobarbital (Phenobarbital 30 Mg Tablet) 30 mg PO DAILY [facility]; Protocol Stop: 10/29/21 09:01 Sodium Chloride (0.9 % Sodium Chloride Flush 3 Ml Syringe) 3 ml IVFLUSH QSHIFT [facility] Last Admin: 10/24/21 09:05 Dose: 3 ml Documented by: Home Medications Medication Instructions Recorded Confirmed Last Taken Type ascorbic acid 1,000 1 ea PO DAILY 01/09/21 10/23/21 12/26/20 History vg-igwdmyqlnaeu-fjfgnfub powder effervescent pack ([facility]) Physical Exam Vital Signs: Vital Signs: Last Vital Signs Temp 97.5 F 10/24/21 11:10 Pulse 122 H 10/24/21 11:10 Resp 20 10/24/21 11:10 BP 138/80 10/24/21 11:10 Pulse Ox 95 10/24/21 11:10 BMI result Body Mass Index 30.9 Const: General: cooperative, comfortable, no acute distress, alert and awake Nutritional Appearance: average body habitus Orientation/consciousness: patient oriented x3 Limitations: no limitations HEENT: Head: Yes normocephalic and Yes atraumatic Neck: Neck: Yes trachea midline, Yes supple and Yes no JVD Chest: Chest palpation & inspection: normal inspection of the chest Resp: Effort & Inspection: normal respiratory effort Auscultation: clear to auscultation bilaterally Cardio: Jugular venous distension: no JVD Palpation: normal PMI Rate: tachycardic Rhythm: abnormal rhythm irregularly irregular Heart sounds: S1 normal heart sound present, S2 normal heart sound present, no click, no gallops, no murmurs and no rubs GI: Auscultation: normal bowel sounds Skin: General skin exam: no rashes or lesions noted Neuro: General: patient oriented x3 and no focal motor deficits Extrem: General: Yes no clubbing, cyanosis or edema Psych: Appearance: grossly normal Objective Labs and Meds Result diagrams: 10/23/21 11:20 10/23/21 11:20 Lab results: Laboratory Results - last 24 hr 10/23/21 11:20 Magnesium 1.7 Total Bilirubin 0.8 Direct Bilirubin 0.3 AST 66 H ALT 41 H Alkaline Phosphatase 86 D Total Protein 7.2 D Albumin 4.2 D Assessment and Plan (1) Atrial fibrillation with rapid ventricular response: Status: Acute Atrial fibrillation rapid ventricular response in this middle-aged man with no symptoms whatsoever including with fast ventricular response. He has no signs or symptoms of heart failure. Most likely induced by alcohol use. This was discussed with him. For now will continue rate control as we do not know the duration of atrial fibrillation. Start him on p.o. metoprolol 25 mg q.6 hours. Also give IV digoxin 0.25 mg q.6 hours x3 doses. Will continue monitor him on and for better rate control. His last echocardiogram showed low normal LVEF. Likelihood of tachycardia mediated cardiomyopathy is high although he does not have any symptoms of heart failure at this point time. Will also start him on oral anticoagulant therapy with Xarelto 20 mg daily. Importance of complete abstinence from alcohol was discussed with him. Continue to treat him for possible alcohol withdrawal. Will continue to follow with you. Thank you for allowing us to partake in his care Procedures Date of Service Date of Service: 10/24/21
[2021-10-24 14:56] VITALS: BP 122/77; PULSE 80; RESP 17; TEMP 36.2; O2SAT 92
[2021-10-24] MEDS: Enoxaparin Sodium 40 MG/0.4 ML SYRINGE SUBCUT (17:48)
[2021-10-24 19:02] VITALS: BP 138/72; PULSE 99; RESP 17; TEMP 36.1; O2SAT 95
[2021-10-24 23:52] VITALS: BP 124/82; PULSE 118; RESP 16; TEMP 36.4; O2SAT 97
[2021-10-25] MEDS: dilTIAZem HCL 125 MG in 0.9 % Sodium Chloride 100 ML IVCONT (03:05)
[2021-10-25 03:23] VITALS: BP 126/84; PULSE 112; RESP 15; TEMP 36.8; O2SAT 95
[2021-10-25 06:32] LABS: Anion Gap 15 (12-20); Blood Urea Nitrogen 8 mg/dL (9-16); Calcium 8.9 mg/dL (8.4-10.2); Carbon Dioxide 22 mmol/L (22-29); Chloride 102 mmol/L (96-108); Creatinine Clr Calc Pharmacy 107.7; Estimated Glomerular Filt Rate > 60; Glucose Random 119 mg/dL (60-115); Sodium 135 mmol/L (135-145)
[2021-10-25 07:19] VITALS: BP 98/75; PULSE 128; RESP 18; TEMP 36.3; O2SAT 99
--- NOTE | 2021-10-25 13:25 | P.EN_ITS ---
Event Note Date of Service: 10/25/21 Event Note: discharge summary Discharge diagnosis Alcohol intoxication and withdrawal Atrial fibrillation with rapid ventricular response The patient was treated in the hospital for AFib with RVR and alcohol withdrawal. I was notified by the nursing staff Around 08:20 that the patient eloped this morning before I was able to see him in rounds. He did not discuss his plan with anyone or mention that he wants to leave AMA at any point. his heart rate was elevated still at that point and he was on Cardizem drip, digoxin and metoprolol along with Eliquis as anticoagulation to treat his AFib with RVR. I try to call him but he did not pick up attendant and asked call me To call me to his voicemail.
--- NOTE | 2021-10-25 13:59 | PC.NURSE ---
Pt off monitor shortly after change of RN shift. ROLL COATING MACHINE OPERATOR placed monitor or patient for continuous heart monitoring. Pt changed clothing and removed monitor, eloped from hospital against medical advice. MD, nurse distribution operation supervisor, and security notified.
== END 2021-10-25 07:51 | disposition left against medical advice (07) | DRG 201 ==
LOC: HO.ED 12:08 → HO.EDOVER 16:13 → HO.IMC 16:37
PROVIDERS: Admitting Provider Student in an Organized Health Care Education/Training Program; Emergency Provider Student in an Organized Health Care Education/Training Program; Visit Provider Student in an Organized Health Care Education/Training Program
DX: I48.91 Unspecified atrial fibrillation (principal); F10.229 Alcohol dependence with intoxication, unspecified; F10.239 Alcohol dependence with withdrawal, unspecified; I10 Essential (primary) hypertension; Y90.7 Blood alcohol level of 200-239 mg/100 ml; Z20.822 Contact with and (suspected) exposure to COVID-19; Z79.899 Other long term (current) drug therapy
CPT/HCPCS: 36415; 71045; 80048; 80076; 82077; 83735; 84484; 85025; 85610; 85730; 87635; 93005; 96361; 96372; 96374; 99284; 99285; J1160; J1650; J3475

== ENCOUNTER 2021-11-11 03:49 | Inpatient (IN) | payer MEDICAID, SELFPAY ==
[2021-11-11] VITALS (20 sets, daily range): BP systolic 109–160; BP diastolic 79–110; PULSE 54–150; RESP 18–40; TEMP 36.3–37.7; O2SAT 93–97; BMI 31.5
--- NOTE | ~2021-11-11 | CT_ITS ---
EXAMINATION: CT CHEST WITHOUT CONTRAST CLINICAL INFORMATION: Pain. Rule out left lower lobe collapse or hernia. COMPARISON: Radiograph 11/15/2021. TECHNIQUE: Multidetector volumetric CT imaging of the chest was done. Axial MIP volume rendering provided. Sagittal and coronal reformatted images were obtained. This CT examination was performed using dose optimization techniques as appropriate, variously including the following: *Automated exposure control *Adjustment of mA and/or kV according to patient size (this includes techniques or standardized protocols for targeted exams where dose is matched to indication/reason for exam; i.e. extremities or head) *Use of iterative reconstruction technique DLP: 321 mGy-cm FINDINGS: CABLE PLACER: Minimal bibasilar opacities. LUNGS: The central airways are patent. There is consolidation in the right lower lobe with air bronchograms dependently. Additional smaller area of consolidation in the left lower lobe with air bronchograms. The appearance favors segmental atelectasis. No pneumothorax. MEDIASTINUM: Prominent heart. Coronary artery calcifications. No pericardial effusion. No mediastinal lymphadenopathy. PLEURA: There is no pleural effusion. No pleural mass or thickening. AXILLA: No lymphadenopathy. UPPER ABDOMEN: No acute abnormality. No hiatal hernia. OSSEOUS STRUCTURES: No acute or suspicious osseous abnormality. Mild degenerative change throughout the visualized spine. CT/CT chest wo con IMPRESSION: Bilateral lower lobe consolidation with air bronchograms. With this appearance this suggests segmental atelectasis. Fleischner guidelines were followed.
--- NOTE | ~2021-11-11 | XR_ITS ---
EXAMINATION: XR CHEST CLINICAL INFORMATION: Intubation COMPARISON: Previous chest x-ray from yesterday TECHNIQUE: Frontal view of the chest was obtained. FINDINGS: There is a new endotracheal tube with tip 4 cm above the sonya. There is a new nasogastric tube with tip projecting over the stomach. The cardiac silhouette is enlarged. The lung volumes are low. There may be lower lobe atelectasis consolidation. There is no definite pleural effusion. There is no pneumothorax. There are degenerative changes of the spine. XR/XR chest 1V IMPRESSION: Satisfactory position of endotracheal tube and nasogastric tube. Lung volumes. Enlarged cardiac silhouette and bibasilar atelectasis or consolidation.
--- NOTE | ~2021-11-11 | XR_ITS ---
EXAMINATION: XR CHEST CLINICAL INFORMATION: Hypoxemia. Rule out pulmonary edema. COMPARISON: Chest x-ray November 13, 2021 TECHNIQUE: Frontal view of the chest was obtained. FINDINGS: Cardiac silhouette is normal in size. Endotracheal tube terminates approximately 5.6 cm above the level the sonya. Enteric tube terminates below the level the diaphragm. The lungs are hypoinflated. There is no gross lobar consolidation identified. Improved aeration of the right lung base. No CHF. No large pleural effusion. No pneumothorax. XR/XR chest 1V IMPRESSION: -Support apparatus in expected position. -Hypoinflated lungs without acute pulmonary pathology.
--- NOTE | ~2021-11-11 | XR_ITS ---
EXAMINATION: XR CHEST CLINICAL INFORMATION: Atrial fibrillation. Rule out pulmonary edema. COMPARISON: 10/23/2021 TECHNIQUE: Frontal view of the chest was obtained. FINDINGS: Cardiac leads overlie the chest. The lungs are well expanded. There is no focal consolidation, edema, or effusion. No pneumothorax. The cardiomediastinal silhouette is within normal limits. No acute osseous abnormality. XR/XR chest 1V IMPRESSION: No acute pulmonary finding.
--- NOTE | ~2021-11-11 | XR_ITS ---
EXAMINATION: XR CHEST CLINICAL INFORMATION: Hypoxia, evaluate for pneumonia COMPARISON: 11/12/2021 TECHNIQUE: Frontal view of the chest was obtained. FINDINGS: The ET tube is 3.2 cm above sonya. The NG tube overlies the stomach left upper quadrant. There is felt to be vascular congestion on this study. Low lung volumes. Left-sided effusion is suspected in retrocardiac density is once again seen consistent with atelectasis/infiltrate or edema. There appears to be fluid in the minor fissure on the right. The right base is similar to previous. I suspect atelectasis infiltrate or edema. XR/XR chest 1V IMPRESSION: ET tube in good position 3.2 cm above sonya. Bilateral basilar opacities. This appears to be increasing on left. I suspect fluid on the left with likely adjacent atelectasis infiltrate or edema. There is also increased vascular congestion on this study. Early CHF needs to be considered At the right base persistent density which may represent atelectasis infiltrate or edema and some likely fluid as well
--- NOTE | 2021-11-11 04:01 | ECG_ITS ---
Test Reason : AFIB RVR Blood Pressure : / mmHG Vent. Rate : 169 BPM Atrial Rate : 000 BPM P-R Int : 000 ms QRS Dur : 102 ms QT Int : 282 ms P-R-T Axes : 000 068 -87 degrees QTc Int : 472 ms Atrial fibrillation with rapid ventricular response Nonspecific ST and T wave abnormality Abnormal ECG When compared with ECG of 23-OCT-2021 11:23, No significant change was found Referred By: Lidia Sethi Electronically Signed By:BJ FLORES MD
--- NOTE | 2021-11-11 04:08 | ED_ITS ---
HPI - General Adult General Chief complaint: Arrhythmia/Palpitations Stated complaint: SOB/Rapid A-Fib Time Seen by Provider: 11/11/21 04:01 Source: patient and EMS Mode of arrival: EMS Limitations: no limitations History of Present Illness HPI narrative: Patient comes to emergency room complaining of 10 days of shortness of breath. Patient states that tonight he could not sleep and therefore came to the [facility]. Patient was recently diagnosed with atrial fibrillation with RVR. Patient left the hospital against medical advice on 10/25/2021 , patient has not taking any medications for rate control or blood thinners. While patient was here in the hospital, he was on a Cardizem drip, digoxin and metoprolol along with Eliquis. Patient denies chest pain or palpitations, complaining of shortness of breath. Patient has also noticed that his lower extremities are slightly more swollen than usual. When EMS brought the patient, patient's heart rate did range between 170-210. Patient awake and alert, other than the shortness of breath no complaints. Patient states that his last drink was 2 days ago, patient has small amount to drink according to him. Related Data Home Medications Medication Instructions Recorded Confirmed ascorbic acid 1,000 1 ea PO DAILY 01/09/21 10/23/21 xa-[id number]-[id number] powder effervescent pack (Emergen-C) Allergies Allergy/AdvReac Type Severity Reaction Status Date / Time No Known Allergies Allergy Verified 01/09/21 12:30 [No Known Allergies*] Review of Systems Review of Systems: Constitutional : No Weight loss, No Fever, No Chills, No Night Sweats, No Fatigue, No Malaise ENT/Mouth : No Hearing loss, No Ear Pain, No Nasal Congestion, No Sinus Pain, No Hoarseness, No sore throat, No Rhinorrhea, No Swallowing Difficulty Eyes: No Eye Pain, No Swelling, No Redness, No Foreign Body, No Discharge, No Vision Changes Cardiovascular : No Chest Pain, no palpitations complaining of orthopnea and lower extremity edema Respiratory : No Cough, No Sputum, No Wheezing, No Smoke Exposure, Gastrointestinal : No Nausea, No Vomiting, No Diarrhea, No Constipation, No a bdominal Pain, No Hematochezia, No Melena Genitourinary : no irregular bleeding, No Dysuria, No Urinary Frequency, No Hematuria, No Urinary Incontinence, No Urgency, No Flank Pain, No Urinary Flow Changes, No Hesitancy Musculoskeletal : No joint pain, No Myalgias, No Joint Swelling Skin : No Skin Lesions, No rash Neuro : No Weakness, No Numbness, No Paresthesias, No Loss of Consciousness, No Dizziness, No Headache Psych : No Anxiety/Panic, No Depression, No SI/HI/AH/VH, No Social Issues, Heme/Lymph: No Bruising, No Bleeding,No Lymphadenopathy Endocrine : No Polyuria, No Polydipsia, No Temperature Intolerance [facility] Past Medical History Medical History (Updated 11/11/21 @ 05:00 by Lidia Sethi MD) Alcohol dependence with withdrawal Alcoholic hepatitis Atrial fibrillation with rapid ventricular response HTN (hypertension) Family History Family History Father CAD (coronary artery disease) Social History Social History Household Members: None Housing: Apartment Do you presently have visiting nurse or other home services: No Alcohol intake: current Alcohol intake frequency: a few times a week Alcohol type: wine Patient Tobacco Use Status: Never used Tobacco Use of substances other than those prescribed or required for medical reasons: No Advance Directives: No service: No Current occupational status: unemployed Physical Exam ED Vital Signs: Vital Signs - 24 hr 11/11/21 04:00 11/11/21 04:05 11/11/21 04:18 Temperature 97.4 F Pulse Rate 150 H 124 H Respiratory Rate 40 H 22 H Blood Pressure 136/96 H 136/96 H 139/94 H Pulse Oximetry 93 11/11/21 04:45 Temperature Pulse Rate 101 H Respiratory Rate 24 H Blood Pressure Pulse Oximetry 94 BMI result Body Mass Index 31.5 Const Other: Appearance: Alert. Oriented X3. No acute distress. Very anxious Eyes: Pupils equal, round and reactive to light. ENT: Pharynx normal. Neck: Normal inspection. Neck supple. No lymph nodes noted. No crepitus CVS: Irregularly irregular, heart rate in the 180s, Pulses normal. Normal S1 and S2 Respiratory: No respiratory distress. Breath sounds normal. No Wheezing. No rales Abdomen: Soft and nontender. No rigidity. No distention. Skin: Skin warm and dry. Normal skin color. Normal skin turgor. Extremities: +1 pitting edema bilaterally No Lacerations. No Rash Neuro: Oriented X 3. No motor deficit. No sensory deficit. Moving all extremities. No slurred speech. CN 2 through 12 grossly intact Psych: calm, cooperative, very anxious Course Course Course Narrative: On arrival, patient received 20 mg of Cardizem push. Patient's heart rate improved from 180-120. In 15 minutes, if patient's heart rate does not improve, we will give another bolus. Patient's blood pressure stable in the 130s systolic with A 2nd dose of Cardizem 20 mg was given. Patient's heart rate remains between 110 and 130. Patient is being started on a Cardizem drip. Patient was given also Eliquis. Also, patient's BNP is elevated which is expected with atrial fibrillation. However, patient has also shortness of breath along with lower extremity edema, 20 mg of Lasix were given. Patient had an echocardiogram done in 2020, ejection fraction was 53 %. As mentioned above, the last time that the patient was here, patient was on 3 medications to control the heart rate. Patient states that he will not leave against medical advice this time. I discussed the patient with Dr. Pepe, patient being admitted Patient's heart rate still in the 130s, patient given 1 dose of metoprolol 2.5 mg IV push. Medical Decision Making Lab Data Result diagrams: 11/11/21 04:11 11/11/21 04:11 Labs: Lab Results 11/11/21 11/11/21 11/11/21 Range/Units 04:11 04:11 04:11 WBC 8.0 (4.8-10.8) X10*3/uL RBC 4.20 L (4.60-5.80) X10*6/uL Hgb 14.8 (14.0-18.0) g/dl Hct 44.6 (42.0-52.0) % MCV 106.2 H (80.0-98.0) fL MCH 35.2 H (27.0-33.0) pg MCHC 33.2 (31.0-36.0) g/dl RDW 13.8 (11.0-16.0) % Plt Count 126 L (160-400) X10*3/uL MPV 11.0 (9.4-12.4) fL Immature Gran % (Auto) 0.4 (0.0-0.4) % Neut % (Auto) 81.2 H (45-73) % Lymph % (Auto) 9.2 L (20-40) % [place] % (Auto) 8.7 (2-11) % Eos % (Auto) 0.1 (0-4) % Baso % (Auto) 0.4 (0-2) % Lymph # (Auto) 0.7 L (1.2-4.9) X10*3/uL [place] # (Auto) 0.7 (0.1-1.2) X10*3/uL Eos # (Auto) 0.0 (0.0-0.4) X10*3/uL Baso # (Auto) 0.0 (0.0-0.2) X10*3/uL Abs Immat Gran (auto) 0.03 (0.00-0.03) X10*3/uL Absolute Neuts (auto) 6.5 (2.0-8.3) x10*3/uL Absolute Nucleated RBC 0.000 (0.0-0.012) X10*3/uL Nucleated RBC % (auto) 0.0 (0.0-0.2) /100WBC PT 14.4 H (9.9-13.0) SEC INR 1.3 H (0.9-1.1) Sodium 135 (135-145) mmol/L Potassium 4.5 (3.3-5.1) mmol/L Chloride 102 (96-108) mmol/L Carbon Dioxide 9 L* D (22-29) mmol/L Anion Gap 29 H (12-20) BUN 11 (9-16) mg/dL Creatinine 1.08 (0.5-1.4) mg/dL Estim Creat Clear Calc 92.5 Estimated GFR > 60 Random Glucose 234 H D (60-115) mg/dL Calcium 9.0 (8.4-10.2) mg/dL Magnesium 1.4 L* (1.6-2.6) mg/dL Total Bilirubin 2.8 H (0.0-1.0) mg/dL Direct Bilirubin 1.2 H (0.0-0.5) mg/dL AST 90 H (5-37) U/L ALT 64 H (0-40) U/L Alkaline Phosphatase 114 D (39-117) U/L Troponin I High Sens (<3.5-35.0) ng/L B-Natriuretic Peptide (<100) pg/mL Total Protein 7.0 (6.5-8.0) g/dL Albumin 4.1 (3.5-5.0) g/dL COVID-19 (GAUTAM) (Negative) COVID-19 Clin Com 11/11/21 11/11/21 Range/Units 04:11 04:11 WBC (4.8-10.8) X10*3/uL RBC (4.60-5.80) X10*6/uL Hgb (14.0-18.0) g/dl Hct (42.0-52.0) % MCV (80.0-98.0) fL MCH (27.0-33.0) pg MCHC (31.0-36.0) g/dl RDW (11.0-16.0) % Plt Count (160-400) X10*3/uL MPV (9.4-12.4) fL Immature Gran % (Auto) (0.0-0.4) % Neut % (Auto) (45-73) % Lymph % (Auto) (20-40) % [place] % (Auto) (2-11) % Eos % (Auto) (0-4) % Baso % (Auto) (0-2) % Lymph # (Auto) (1.2-4.9) X10*3/uL [place] # (Auto) (0.1-1.2) X10*3/uL Eos # (Auto) (0.0-0.4) X10*3/uL Baso # (Auto) (0.0-0.2) X10*3/uL Abs Immat Gran (auto) (0.00-0.03) X10*3/uL Absolute Neuts (auto) (2.0-8.3) x10*3/uL Absolute Nucleated RBC (0.0-0.012) X10*3/uL Nucleated RBC % (auto) (0.0-0.2) /100WBC PT (9.9-13.0) SEC INR (0.9-1.1) Sodium (135-145) mmol/L Potassium (3.3-5.1) mmol/L Chloride (96-108) mmol/L Carbon Dioxide (22-29) mmol/L Anion Gap (12-20) BUN (9-16) mg/dL Creatinine (0.5-1.4) mg/dL Estim Creat Clear Calc Estimated GFR Random Glucose (60-115) mg/dL Calcium (8.4-10.2) mg/dL Magnesium (1.6-2.6) mg/dL Total Bilirubin (0.0-1.0) mg/dL Direct Bilirubin (0.0-0.5) mg/dL AST (5-37) U/L ALT (0-40) U/L Alkaline Phosphatase (39-117) U/L Troponin I High Sens 25.9 D (<3.5-35.0) ng/L B-Natriuretic Peptide 1670 H (<100) pg/mL Total Protein (6.5-8.0) g/dL Albumin (3.5-5.0) g/dL COVID-19 (GAUTAM) Negative (Negative) COVID-19 Clin Com See Note Imaging Data Chest x-ray: Radiologist's impression: FINDINGS: Cardiac leads overlie the chest. The lungs are well expanded. There is no focal consolidation, edema, or effusion. No pneumothorax. The cardiomediastinal silhouette is within normal limits. No acute osseous abnormality. XR/XR chest 1V IMPRESSION: No acute pulmonary finding. Critical Care Time Critical Care Time Critical Care Time: Yes Total Critical Care Time: 60 Attestation: I have personally provided critical care time. Time includes review of lab data, radiology results, discussion with consultants, and monitoring for potential decompensation. Intervention performed as documented. Discharge Plan Discharge Clinical Impression: Atrial fibrillation with RVR Patient Disposition: Admitted As Inpatient
[2021-11-11 04:16] LABS: Basophils Percent Auto 0.4 % (0-2); Eosinophils Percent Auto 0.1 % (0-4); Hematocrit 44.6 % (42.0-52.0); Hemoglobin 14.8 g/dl (14.0-18.0); Imm Gran Abs Auto 0.03 X10*3/uL (0.00-0.03); Imm Gran Pct Auto 0.4 % (0.0-0.4); Lymphocytes Absolute Auto 0.7 X10*3/uL (1.2-4.9); Lymphocytes Percent Auto 9.2 % (20-40); MANUAL DIFF FLAG NO; Mean Corpuscular HGB Conc 33.2 g/dl (31.0-36.0); Mean Corpuscular Hemoglobin 35.2 pg (27.0-33.0); Mean Corpuscular Volume 106.2 fL (80.0-98.0); Monocytes Absolute Auto 0.7 X10*3/uL (0.1-1.2); Monocytes Percent Auto 8.7 % (2-11); Neutrophils Absolute Auto 6.5 x10*3/uL (2.0-8.3); Neutrophils Percent Auto 81.2 % (45-73); Platelet Count 126 X10*3/uL (160-400); Red Cell Distribution Width 13.8 % (11.0-16.0)
[2021-11-11] MEDS: dilTIAZem HCL 50 MG/10 ML VIAL 20 MG IVPUSH ×2 (04:18→04:23)
[2021-11-11 04:21] LABS: INTERNATIONAL NORM RATIO 1.3 (0.9-1.1); Prothrombin Time 14.4 SEC (9.9-13.0)
[2021-11-11 04:34] LABS: COVID-19 Test Negative (Negative)
--- NOTE | 2021-11-11 04:35 | PC.NURSE ---
pt has been given a secound dose of cardizem iv and hr is 103-115 afib sat 93% on room air. pt awake talking in full sentences, denies chest pain just states he feels sob.
[2021-11-11 04:36] LABS: B Type Natriuretic Peptide 1670 pg/mL (<100); Troponin-I High Sensitivity 25.9 ng/L (<3.5-35.0)
[2021-11-11 04:38] LABS: Alanine Aminotransferase 64 U/L (0-40); Albumin Level 4.1 g/dL (3.5-5.0); Alkaline Phosphatase 114 U/L (39-117); Anion Gap 29 (12-20); Aspartate Amino Transferase 90 U/L (5-37); Bilirubin Direct 1.2 mg/dL (0.0-0.5); Bilirubin Total 2.8 mg/dL (0.0-1.0); Blood Urea Nitrogen 11 mg/dL (9-16); Carbon Dioxide 9 mmol/L (22-29); Chloride 102 mmol/L (96-108); Creatinine Clr Calc Pharmacy 92.5; Estimated Glomerular Filt Rate > 60; Glucose Random 234 mg/dL (60-115); Magnesium 1.4 mg/dL (1.6-2.6); Potassium 4.5 mmol/L (3.3-5.1); Sodium 135 mmol/L (135-145)
[2021-11-11] MEDS: Apixaban 5 MG TABLET PO ×2 (04:39→20:01)
--- NOTE | 2021-11-11 04:39 | PC.NURSE ---
Critical labs reported to Ramakrishna Lala and Provider Dr. Sethi.
[2021-11-11] MEDS: Magnesium Sulfate/H2O 2 GM/50 ML PIGGYBACK IV (04:54)
[2021-11-11] MEDS: Furosemide 20 MG/2 ML VIAL IVPUSH (04:55)
--- NOTE | 2021-11-11 05:16 | PC.NURSE ---
pt voided 325cc clear yellow in the urinal. after lasix has been given.
[2021-11-11] MEDS: dilTIAZem HCL 125 MG in 0.9 % Sodium Chloride 100 ML 10 MG IVCONT (05:32)
[2021-11-11] MEDS: Metoprolol Tartrate 5 MG/5 ML VIAL 2.5 MG IVPUSH (05:38)
--- NOTE | 2021-11-11 05:45 | PC.NURSE ---
pt output in the urinal 300cc clear yellow.
--- NOTE | 2021-11-11 05:48 | PC.NURSE ---
cardizem drip increased per protocal , increase by 5 mg to 15 mg. hr 115-122 bp 143/101
--- NOTE | 2021-11-11 06:13 | PC.NURSE ---
pt remains in afib rate starting to break to 96 for a low. cardizem drip remains at 15mg /hr'
--- NOTE | 2021-11-11 06:45 | PC.NURSE ---
pt urinated 700cc clear yellow.
--- NOTE | 2021-11-11 08:54 | PHA.MEDREC ---
Pharmacy Consult ? Medication Reconciliation Pharmacy has completed the medication reconciliation. Patient takes no medications at home except emergnecy-CAriana Lowe, AngelicD
[2021-11-11] MEDS: LORazepam 2 MG/ML VIAL IVPUSH (09:15)
--- NOTE | 2021-11-11 09:18 | P.HPHOSP_ITS ---
History of Present Illness Date of Service: 11/11/21 Chief Complaint: shortness of breath and palpitations This is a 56 year old male with a PMH of PAF, Alcohol abuse and dependence who was admitted From 10/23/21 - 10/25/21 (he eloped from the hospital and was not formally discharged) for A. Fib with RVR requiring multiple rate control drugs. He now presents to the ED with complaints of SOB, initially with exertion but now even at rest. He reports symptoms started about 10 days ago. He endorses orthopnea and PND. He reports minimal leg swelling. He reports palpitations but denies chest pain. He denies a productive cough, fevers or chills. He reports no sick contacts. He reports that he now drinks only twice weekly and his last drink was on (2 days prior to admission). He rpeorted intake of 2 glasses of red wine. Upon arrival to the ED, he was noted to bein A. Fib RVR. His BNP was signific antly elevated. He was given 2 rounds of IV cardizem push and 1 round of IV metoprolol without significant improvement in his heart rates. He was subsequently started on IV cardizem drip. He has also been given a dose of IV lasix and reports urinating about 3L. He will be admitted for further treatment. Review of Systems Review of Systems: negative except HPI [facility] Medical History Alcohol dependence with withdrawal Alcoholic hepatitis Atrial fibrillation with rapid ventricular response HTN (hypertension) Family History Father CAD (coronary artery disease) Surgical History (Updated 11/11/21 @ 09:23 by Tim Myers MD) No pertinent past surgical history Social History Household Members: None Housing: Apartment Do you presently have visiting nurse or other home services: No Alcohol intake: current Alcohol intake frequency: a few times a week Alcohol type: wine Patient Tobacco Use Status: Never used Tobacco Use of substances other than those prescribed or required for medical reasons: No Advance Directives: No service: No Current occupational status: unemployed Meds Allergies Allergy/AdvReac Type Severity Reaction Status Date / Time No Known Allergies Allergy Verified 01/09/21 12:30 [No Known Allergies*] Active Medications: Current Medications Acetaminophen (Acetaminophen 325 Mg Tablet) 650 mg PO Q6H PRN PRN Reason: Pain, Mild (Pain Scale 1-3) Diltiazem HCl 125 mg/ Sodium (Chloride) 125 mls @ 0 mls/hr IVCONT .Q0M [facility]; Protocol Last Admin: 11/11/21 05:32 Dose: 10 mg/hr, 10 mls/hr Documented by: Ondansetron HCl (Ondansetron Hcl 4 Mg/2 Ml Vial) 4 mg IVPUSH Q8H PRN PRN Reason: Nausea and Vomiting Pharmacy Consult (Consult Rx Perform Med Rec) 1 each MISCELLANE ONCE PRN PRN Reason: Consult order Sodium Chloride (0.9 % Sodium Chloride Flush 3 Ml Syringe) 3 ml IVFLUSH QSHIFT [facility] Home Medications Medication Instructions Recorded Confirmed Last Taken Type ascorbic acid 1,000 1 ea PO DAILY 01/09/21 11/11/21 11/09/21 History ar-eehhetavbkau-nkqbjfbo powder 1 effervescent pack (Emer[facility]-C) Physical Exam Vital Signs and Narrative: Vital Signs: Last Vital Signs Temp 97.4 F 11/11/21 04:00 Pulse 54 11/11/21 07:14 Resp 24 H 11/11/21 07:14 BP 126/92 H 11/11/21 07:14 Pulse Ox 95 11/11/21 07:14 BMI result Body Mass Index 31.5 Const: Other: Constitutional - Awake and Alert, No apparent distress Eyes - PERRLA, EOMI Cardiovascular - S1S2, IRR, Rates in the 120 on cardizem gtt; unable to tolerate supine positioning; 1+ b/l pitting edema Respiratory - Mild tachypnea, particularly in supine position; +rales b/l Gastrointestinal - NT / ND; +BS; No rebound or guarding - No CVA tenderness Extremities - no calf tenderness bilaterally Musculoskeletal - Normal inspection, normal ROM Skin - Warm/Dry Neurological - Alert & oriented x3, No focal deficit Psychological - Appropriate affect Results Labs CBC and Chem 7: 11/11/21 04:11 11/11/21 04:11 Labs: Laboratory Results - last 24 hr 11/11/21 11/11/21 11/11/21 04:11 04:11 04:11 MCV 106.2 H MCH 35.2 H MCHC 33.2 RDW 13.8 Plt Count 126 L MPV 11.0 Immature Gran % (Auto) 0.4 Neut % (Auto) 81.2 H Lymph % (Auto) 9.2 L [place] % (Auto) 8.7 Eos % (Auto) 0.1 Baso % (Auto) 0.4 Lymph # (Auto) 0.7 L [place] # (Auto) 0.7 Eos # (Auto) 0.0 Baso # (Auto) 0.0 Abs Immat Gran (auto) 0.03 Absolute Neuts (auto) 6.5 Absolute Nucleated RBC 0.000 Nucleated RBC % (auto) 0.0 PT 14.4 H INR 1.3 H Anion Gap 29 H Estim Creat Clear Calc 92.5 Estimated GFR > 60 Random Glucose 234 H D Calcium 9.0 Magnesium 1.4 L* Total Bilirubin 2.8 H Direct Bilirubin 1.2 H AST 90 H ALT 64 H Alkaline Phosphatase 114 D Troponin I High Sens B-Natriuretic Peptide Total Protein 7.0 Albumin 4.1 COVID-19 ([facility]UT[facility]) COVID-19 MetaCDN 11/11/21 11/11/21 04:11 04:11 MCV MCH MCHC RDW Plt Count MPV Immature Gran % (Auto) Neut % (Auto) Lymph % (Auto) [place] % (Auto) Eos % (Auto) Baso % (Auto) Lymph # (Auto) [place] # (Auto) Eos # (Auto) Baso # (Auto) Abs Immat Gran (auto) Absolute Neuts (auto) Absolute Nucleated RBC Nucleated RBC % (auto) PT INR Anion Gap Estim Creat Clear Calc Estimated GFR Random Glucose Calcium Magnesium Total Bilirubin Direct Bilirubin AST ALT Alkaline Phosphatase Troponin I High Sens 25.9 D B-Natriuretic Peptide 1670 H Total Protein Albumin COVID-19 (GAUTAM) Negative COVID-19 MetaCDN See Note Imaging Radiologist's Impressions: Impressions Chest X-Ray 11/11/21 04:35 IMPRESSION: No acute pulmonary finding. Assessment and Plan (1) Atrial fibrillation with RVR: Status: Acute Plan This is a 56 yo M with a PMH of alcoholic hepatitis (previously treated with a course of steroids), PAF (hospitalized in October 24 for the same) and alcohol dependence (now reports he drinks only few times a week) who presents in A. Fib with RVR + CHF symptoms. He will be admitted for further treatment. 1. Acute HFpEF Echo from 01/2021 shows preserved EF possibly secondary to rapid A. Rib responded well to IV lasix 20mg -- will continue the same BID; not on any diuretics at home I/O Cardiology consult -- will see if repeat echo is needed 2. A. Fib with RVR previous epsidoes of A. Fib were attributed to heavy alcohol intake; He current denies heavy use (please see below #4) Continue cardizem drip for now; will add PO cardizem drip once better controlled; currently still in the 120s Previous cardiology note reviewed -- no need for OAC at that time; given a dose of Eliquis in the ED, will await cardiology input 3. Anion Gap metabolic acidosis likely 2/2 to EtOH repeat BMP stat now 4. Alcoholic liver dx pt denies current heavy use; his bili was wnl on 10/23 and now is 2.8 trend COMPLETE alcohol cessation has been encouraged to the patient Full Code DVT pptx, pharmacological (Eliquis vs lovenox/heparin) Quality Stroke Does the patient have a stroke diagnosis?: No VTE Prior VTE?: No VTE Risk Level:: Medical - moderate - high VTE Device Contraindication: Treatment Not Indicated VTE Drug Contraindication: N/A - Med Ordered
--- NOTE | 2021-11-11 09:24 | PC.NURSE ---
Got report from night RN on Cardizem drip and report that Cardizem was 15 mg/hr , in the pump of cardizem it was programed for 15 but in the computer it was never increased. Drip titrated to 12.5mg/hr by this RN and documentated. HR remains below 110 BPM at rest. Denies any CP or any physical complaints at this time. Anxious with ambulation but did well with 1 assist. Ativan 2mg IVP given.
[2021-11-11 09:45] LABS: COVID-19 Test Negative (Negative); IDNOW Serial# 9DB6401D
[2021-11-11 10:04] LABS: Anion Gap 22 (12-20); Blood Urea Nitrogen 11 mg/dL (9-16); Calcium 8.9 mg/dL (8.4-10.2); Carbon Dioxide 17 mmol/L (22-29); Chloride 101 mmol/L (96-108); Estimated Glomerular Filt Rate > 60; Glucose Random 178 mg/dL (60-115); Potassium 4.2 mmol/L (3.3-5.1); Sodium 136 mmol/L (135-145)
--- NOTE | 2021-11-11 10:47 | PC.NURSE ---
pt VSS and resting comfortably. HR is 90's-100 sinus rhythm
--- NOTE | 2021-11-11 12:04 | PC.NURSE ---
RN assumed care in overflow unit at 12pm. Pt alert and oriented x4, calm and cooperative. Pt denies any pain, denies headache, denies chest pain. Pt denies heart palpitations at this time. States SOB persists but has improved, pt 97% on room air. Pt OOB with stand by assist for safety. Pt noted to have steady gait with ambulating. Pt remains on tele monitor, rhythm in afib heart rate in the 90s. MD Myers aware of patient heart rhythm and rate, per MD Myers give meds as stated in the MAR and reassess 30 minutes post administration. Pt remains on Cardizem drip running at 12.5mg/hour at this time. IV intact. Vitals stable, afebrile. CIWA score completed. Pt resting in hospital bed watching TV now. Report received from LAKESHA Mckee in ED.
[2021-11-11] MEDS: Metoprolol Tartrate 25 MG TABLET PO ×3 (12:28→23:52)
[2021-11-11] MEDS: Digoxin 0.125 MG TABLET 0.25 MG PO (12:28)
--- NOTE | 2021-11-11 12:30 | P.CONCA_ITS ---
History of Present Illness History of Present Illness Date of Service: 11/11/21 Requesting physician: Tim Myers Consult reason: congestive heart failure Chief complaint: Shortness of breath Narrative: I was requested to see Abner in cardiology consultation today because he present with progressive shortness of breath and in congestive heart failure. As you may recall patient its conduit from the hospital about 3 weeks ago when he was admitted with atrial fibrillation with rapid ventricular response and was advised medical therapy. He left without informing anybody and eloped. He obviously did not get any medications on his eloped min. He comes to the hospital progressive shortness of breath over the last 7-10 days with symptoms of orthopnea, leg edema and progressive shortness of breath. When he came in the hospital was noted to be in atrial fibrillation rapid ventricular response and congestive heart failure. Because of his fast ventricular response was started on Cardizem drip and heart rate is better controlled and is diuresed and he has put a lot of urine. He says he feels a lot better but still appears to be short of breath and borderline rate control with atrial fibrillation. Denies any chest pain, lightheadedness, syncope. He said he has significantly reduced his Review of Systems Constitutional: Constitutional: Reports no additional constitutional complaints Eyes: Eyes: Reports no additional eye complaints Cardiovascular: Cardiovascular: Denies chest pain, Denies rapid heart rate, Reports leg edema, Denies lightheadedness, Denies Loss of Consciousness, Denies palpitations, Reports dyspnea, Reports dyspnea on exertion and Reports orthopnea Respiratory: Respiratory: Reports no additional respiratory complaints, Reports dyspnea and Reports dyspnea on exertion Gastrointestinal: Gastrointestinal: Reports no additional gastrointestinal complaints Genitourinary: Genitourinary: Reports no additional male genitourinary complaints Musculoskeletal: Musculoskeletal: Reports no additional musculoskeletal complaints Integumentary/Breasts: Skin/Breast: Reports system reviewed and no additional complaints, except as docu Neurologic: Reports system reviewed and no additional complaints, except as documented Psychiatric: Psychiatric: Reports no additional psychiatric complaints Endocrine: Endocrine: Reports no additional endocrine complaints and Denies palpitations Hematologic/Lymphatic: Hematologic/Lymphatic: Reports no additional hematologic/lymphatic complaints PMF Past Medical History Medical History Alcohol dependence with withdrawal Alcoholic hepatitis Atrial fibrillation with rapid ventricular response HTN (hypertension) Family History Family History Father CAD (coronary artery disease) Surgical History Surgical History No pertinent past surgical history Social History Social History Household Members: None Housing: Apartment Do you presently have visiting nurse or other home services: No Alcohol intake: current Alcohol intake frequency: a few times a week Alcohol type: wine Patient Tobacco Use Status: Never used Tobacco Use of substances other than those prescribed or required for medical reasons: No Advance Directives: No service: No Current occupational status: unemployed Meds Allergies Allergy/AdvReac Type Severity Reaction Status Date / Time No Known Allergies Allergy Verified 01/09/21 12:30 [No Known Allergies*] Active Medications: Current Medications Acetaminophen (Acetaminophen 325 Mg Tablet) 650 mg PO Q6H PRN PRN Reason: Pain, Mild (Pain Scale 1-3) Apixaban (Apixaban 5 Mg Tablet) 5 mg PO BID EDWIN Digoxin (Digoxin 0.125 Mg Tablet) 0.125 mg PO Q6H EDWIN Stop: 11/12/21 00:01 Diltiazem HCl 125 mg/ Sodium (Chloride) 125 mls @ 0 mls/hr IVCONT .Q0M EDWIN; Protocol Last Titration: 11/11/21 09:22 Dose: 12.5 mg/hr, 12.5 mls/hr Documented by: Metoprolol Tartrate (Metoprolol Tartrate 25 Mg Tablet) 25 mg PO Q6H EDWIN; Protocol Last Admin: 11/11/21 12:28 Dose: 25 mg Documented by: Ondansetron HCl (Ondansetron Hcl 4 Mg/2 Ml Vial) 4 mg IVPUSH Q8H PRN PRN Reason: Nausea and Vomiting Pharmacy Consult (Consult Rx Perform Med Rec) 1 each MISCELLANE ONCE PRN PRN Reason: Consult order Sodium Chloride (0.9 % Sodium Chloride Flush 3 Ml Syringe) 3 ml IVFLUSH QSHIFT [facility] Home Medications Medication Instructions Recorded Confirmed Last Taken Type ascorbic acid 1,000 1 ea PO DAILY 01/09/21 11/11/21 11/09/21 History ug-[id number] powder 1 effervescent pack (Emergen-C) Physical Exam Vital Signs: Vital Signs: Last Vital Signs Temp 97.8 F 11/11/21 12:02 Pulse 97 11/11/21 12:02 Resp 24 H 11/11/21 12:02 BP 133/79 11/11/21 12:02 Pulse Ox 97 11/11/21 12:02 BMI result Body Mass Index 31.5 Const: General: cooperative, alert, awake and in distress mild and respiratory Nutritional Appearance: overweight Orientation/consciousness: patient oriented x3 HEENT: Head: Yes normocephalic and Yes atraumatic Neck: Neck: Yes trachea midline, Yes supple and Yes JVD Resp: Effort & Inspection: normal respiratory effort Auscultation: rales bilateral 1/[address] Cardio: Jugular venous distension: JVD Rate: tachycardic Rhythm: abnormal rhythm irregularly irregular Heart sounds: S1 normal heart sound present, S2 normal heart sound present, no click, no gallops and no murmurs GI: Auscultation: normal bowel sounds Skin: General skin exam: no rashes or lesions noted Neuro: General: patient oriented x3 Extrem: General: No clubbing, No cyanosis and Yes edema Psych: Appearance: grossly normal Affect: Anxious affect present Objective Labs and Meds Result diagrams: 11/11/21 04:11 11/11/21 09:37 Lab results: Laboratory Results - last 24 hr 11/11/21 11/11/21 11/11/21 04:11 04:11 04:11 WBC 8.0 RBC 4.20 L Hgb 14.8 Hct 44.6 MCV 106.2 H MCH 35.2 H MCHC 33.2 RDW 13.8 Plt Count 126 L MPV 11.0 Immature Gran % (Auto) 0.4 Neut % (Auto) 81.2 H Lymph % (Auto) 9.2 L Isabela % (Auto) 8.7 Eos % (Auto) 0.1 Baso % (Auto) 0.4 Lymph # (Auto) 0.7 L Isabela # (Auto) 0.7 Eos # (Auto) 0.0 Baso # (Auto) 0.0 Abs Immat Gran (auto) 0.03 Absolute Neuts (auto) 6.5 Absolute Nucleated RBC 0.000 Nucleated RBC % (auto) 0.0 PT 14.4 H INR 1.3 H Sodium 135 Potassium 4.5 Chloride 102 Carbon Dioxide 9 L* D Anion Gap 29 H BUN 11 Creatinine 1.08 Estim Creat Clear Calc 92.5 Estimated GFR > 60 Random Glucose 234 H D Calcium 9.0 Magnesium 1.4 L* Total Bilirubin 2.8 H Direct Bilirubin 1.2 H AST 90 H ALT 64 H Alkaline Phosphatase 114 D Troponin I High Sens B-Natriuretic Peptide Total Protein 7.0 Albumin 4.1 COVID-19 ([facility]) COVID-19 [place] [facility] 11/11/21 11/11/21 11/11/21 04:11 04:11 09:13 WBC RBC Hgb Hct MCV MCH MCHC RDW Plt Count MPV Immature Gran % (Auto) Neut % (Auto) Lymph % (Auto) Isabela % (Auto) Eos % (Auto) Baso % (Auto) Lymph # (Auto) Isabela # (Auto) Eos # (Auto) Baso # (Auto) Abs Immat Gran (auto) Absolute Neuts (auto) Absolute Nucleated RBC Nucleated RBC % (auto) PT INR Sodium Potassium Chloride Carbon Dioxide Anion Gap BUN Creatinine Estim Creat Clear Calc Estimated GFR Random Glucose Calcium Magnesium Total Bilirubin Direct Bilirubin AST ALT Alkaline Phosphatase Troponin I High Sens 25.9 D B-Natriuretic Peptide 1670 H Total Protein Albumin COVID-19 ([facility]UTAM) Negative Negative COVID-19 [place] [facility] See Note See Note 11/11/21 09:37 WBC RBC Hgb Hct MCV MCH MCHC RDW Plt Count MPV Immature Gran % (Auto) Neut % (Auto) Lymph % (Auto) Isabela % (Auto) Eos % (Auto) Baso % (Auto) Lymph # (Auto) Isabela # (Auto) Eos # (Auto) Baso # (Auto) Abs Immat Gran (auto) Absolute Neuts (auto) Absolute Nucleated RBC Nucleated RBC % (auto) PT INR Sodium 136 Potassium 4.2 Chloride 101 Carbon Dioxide 17 L Anion Gap 22 H BUN 11 Creatinine 1.03 Estim Creat Clear Calc 97.0 Estimated GFR > 60 Random Glucose 178 H Calcium 8.9 Magnesium Total Bilirubin Direct Bilirubin AST ALT Alkaline Phosphatase Troponin I High Sens B-Natriuretic Peptide Total Protein Albumin COVID-19 ([facility]) COVID-19 Clin Com Imaging Radiologist's impression: Impressions Chest X-Ray 11/11/21 04:35 IMPRESSION: No acute pulmonary finding. Assessment and Plan (1) Acute congestive heart failure: Status: Acute new onset acute congestive heart failure in this middle-aged man with uncontrolled atrial fibrillation who lobe from the hospital last time with incomplete treatment. Most likely tachycardia mediated high likelihood of tachycardia mediated cardiomyopathy. Continue with IV diuresis, still appears to be in heart failure. Discussed with patient about heart failure management and poor prognosis without treatment. He said he will follow through with treatment this admission. Continue IV diuresis. Strict intake and output chart needs to be pursued. Echocardiogram needs to be obtained. Would switch him quickly to metoprolol therapy for better rate control and also digitalize him. Also add Diovan 40 mg b.i.d. for afterload reduction. Complete cessation of alcohol was discussed with him. May eventually require ischemic workup if he has significant systolic dysfunction. Will follow-up after echocardiogram. (2) Atrial fibrillation with RVR: Status: Acute Atrial fibrillation rapid ventricular response due to poor treatment. Atrial fibrillation most likely induced alcohol use in the past. He is currently on Cardizem drip for acute control of atrial fibrillation however he should quickly switch her to metoprolol and digoxin therapy given that there is high likelihood of systolic dysfunction Taper and discontinue Cardizem therapy as we start loading with digoxin rate gets better control. Full oral anticoagulation should be pursued. Will follow with you Procedures Date of Service Date of Service: 11/11/21
--- NOTE | 2021-11-11 14:24 | PC.NURSE ---
Per MD Myers orders, hold Cardizem drip after PO Digoxin and PO Metoprolol given if heart rate stays below 100. Pt heart rate continues to jump between 87-126. New bag of Cardizem drip running at this time at 12.5mg/hr.
--- NOTE | 2021-11-11 15:58 | PC.NURSE ---
Per MD Myers, hold Cardizem drip at this time. MD Myers aware of patient heart rate ranging from 80s-120s. Pt denies chest pain or SOB at this time. CIWA 0. Will update MD Myers in 40 minutes of Cardizem drip being held per MD orders.
[2021-11-11] MEDS: Digoxin 0.125 MG TABLET PO ×2 (18:17→23:51)
--- NOTE | 2021-11-11 21:17 | PC.NURSE ---
Per MD Myers at 1645, hold Cardizem drip for heart rate <120, pt heart rate sustaining <120 and BP WNL, see charting. Pt denies chest pain, denies SOB, remains on room air. Per MD Myers alert MD if heart rate sustains >130. Pt heart rate at 2030 noted to sustain >120, staying in the 130s and 140s. Night time MD Villegas made aware. Per MD Villegas start cardizem drip at 10mg/hr, Pt restarted on cardizem drip at 10mg/hr at 2115. Will continue to monitor.
[2021-11-11] MEDS: dilTIAZem HCL 125 MG in 0.9 % Sodium Chloride 100 ML 15 MG IVCONT (23:27)
[2021-11-12] VITALS (24 sets, daily range): BP systolic 85–142; BP diastolic 36–98; PULSE 69–145; RESP 14–41; TEMP 33.5–37.8; O2SAT 92–99
--- NOTE | 2021-11-12 02:18 | PC.NURSE ---
Addendum entered by Alexey Calvert RN 11/12/21 06:43: PHENOBARBITOL 300MG PO GIVEN AFTER CLEARED BY PHARMACY Addendum entered by Alexey Calvert RN 11/12/21 06:12: PRN ATIVAN PREVIOUSLY GIVEN...INCREASINGLY VAGUE--PICKING AT LINES-- I'M GOING DOWNSTAIRS TO GET SOME PRETZELS .. I'M GOING TO PUT MY PANTS ON ....HOSPITALIST UPDATED... ORDERED PHENOBARBITOL PROTOCOL CONSULT...INSTRUCTOR BRIDGE UPDATED....SITTER AT BEDSIDE..PHENOBARBITOL ORDERS PENDING..PHARMACY UPDATED Original Note: CARE ASSUMED 23:15...AWAKE..ALERT..VAGUE RESPONSES AT TIMES....ANXIOUS...MILD TREMORS FELT...STATED LAST ETOH EAST ALTHOUGH REPORT FROM ER STATED THAT LAST DRINK WAS WEDNESDAY...HOSPITALIST UPDATED...PRN ATIVAN ORDERED BY ....CARDIZEM DRIP 15 MG/HR ...ATRIAL FIB HR 120'S-130'S AT HS...SCHEDULED PO LOPRESSOR/DIGOXIN GIVEN 12AM PER SEP...CURRENTLY ATRIAL FIB HR 100'S-110'S...DENIES SOB,,,OOB TO BEDSIDE COMMODE 1 ASSIST..MILDLY DICKINSON..NO DISTRESS AT REST..SAO2 94-95% ROOM AIR
[2021-11-12] MEDS: dilTIAZem HCL 125 MG in 0.9 % Sodium Chloride 100 ML 15 MG IVCONT ×2 (03:06→11:45)
[2021-11-12] MEDS: LORazepam 1 MG TABLET PO (03:06)
--- NOTE | 2021-11-12 05:38 | PM.EVENT ---
Event Note Date of Service: 11/12/21 Event Note: Alcohol withdrawal: Patient started on CIWA protocol with p.o. phenobarbital. Seizure precautions. Continue thiamine, folate, multivitamins.
[2021-11-12] MEDS: Metoprolol Tartrate 25 MG TABLET PO ×3 (06:28→10:08)
--- NOTE | 2021-11-12 07:00 | CA_ITS ---
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 fib, chf Study Quality: Fair ECG Rhythm: Atrial Fibrillation Conclusions: - 1. Mildly dilated left ventricle with severely reduced LV systolic function with LVEF of 10-15% 2. Mildly dilated left atrium 3. Normal cardiac valvular Doppler 4. Measured RV systolic pressure appeared to be within normal limits 5. No gross pericardial effusion Findings Procedure Information Contrast agent, definity, is being given per protocol without apparent complications. Left Ventricle Mildly increased left ventricular cavity size. There is normal left ventricular wall thickness. The left ventricular systolic function is severely decreased. The visually estimated ejection fraction is between 10 15%. There is severe global hypokinesis. Diastolic function is indeterminate on the basis of available data. Right Ventricle Mildly increased right ventricular cavity size. There is mildly decreased right ventricular systolic function. Atria The left atrium is mildly dilated. There is no evidence of interatrial shunt. The right atrium is likely dilated. Aortic Valve Normal aortic valve structure and function. There is no aortic valve stenosis. There is no aortic valve regurgitation. Mitral Valve Normal mitral valve structure and function. There is trace mitral valve regurgitation. There is no mitral valve stenosis. Pulmonic Valve The pulmonic valve was not well visualized. Tricuspid Valve Likely normal tricuspid valve structure and function. There is trace tricuspid valve regurgitation. There is no evidence of pulmonary hypertension. Great Vessels All visible segments of the aorta are normal in size. The pulmonary artery was not well visualized. Venous The inferior vena cava is mildly dilated and does not collapse with inspiration. IVC is noncollapsible but patient on positive-pressure ventilation Pericardium/Pleural There is no evidence of pericardial effusion. Prior Study Comparison Changes noted compared to prior study dated: 01/10/2021. LV systolic function is markedly reduced Measurements 2D Linear Measurements IVSd: 0.99 0.6-0.9/0.6-1.0 cm LVIDd: 6.02 3.9-5.3/4.2-5.9 cm LVIDd Index: 2.77 2.4-3.2/2.2-3.1 cm/m2 LVIDs: 5.47 2.0-3.6 cm LVPWd: 1.03 0.7-1.1 cm Ao Root: 3.50 2.1-3.5 cm LA Diam: 3.60 2.7-3.8/3.0-4.0 cm LAIDs Index: 1.66 1.5-2.3 cm/m2 LV Mass: 314.02 67-162/88-224 g LV Mass Index: 144.71 43-95/49-115 g/m2 LVOT Diam: 2.40 3.0+(-)1.3 cm 2D Systolic Function EF 4C: 16.10 >55% EF 2C: 11.90 >55% EF BiP: 13.00 >55% Mitral Valve MV Pk E: 0.62 MV Decel Time: 205.00 E'Lateral: 7.83 E'Medial: 4.90 E/E' Med: 12.70 E/E' Lat: 8.00 PHT: 60.00 MVA PHT: 3.67 Decel Whitley: 3.05 Aortic Valve AoV Pk Justice: 0.87 AoV Mn Justice: 0.59 AoV VTI: 0.19 AoV Pk Grad: 3.00 Aov Mn Grad: 2.00 LYNETTE Cont.VTI: 2.96 LVOT LVOT Pk Justice: 0.70 LVOT Mn Justice: 0.50 LVOT VTI: 0.12 LVOT Pk Grad: 2.00 LVOT Mn Grad: 1.00 LVOT Diam: 2.40 LVOT Area: 4.52 Diastolic Function MV Pk E: 0.62 E'Medial: 4.90 E/E' Med: 12.70 E' Laterial: 7.83 E/E' Lat: 8.00 Tricuspid Valve TR Pk Justice: 1.81 TR Pk Grad: 13.00 Great Vessels Aorta Ao Root-2D: 3.50 2.0-3.7 cm Ao Asc: 3.20 2.1-3.4 cm Pulmonary Valve PV Pk Justice: 0.74 Peak PV Grad: 2.00 Updated in Other Vendor System with Status of Final Maximino Baker MD electronically signed on 11/12/2021 4:57:07 PM with status of Final
[2021-11-12 07:43] LABS: Hematocrit 41.5 % (42.0-52.0); Mean Corpuscular HGB Conc 33.7 g/dl (31.0-36.0); Mean Corpuscular Hemoglobin 35.8 pg (27.0-33.0); Mean Corpuscular Volume 106.1 fL (80.0-98.0); Platelet Count 110 X10*3/uL (160-400); Red Blood Count 3.91 X10*6/uL (4.60-5.80); White Blood Count 7.1 X10*3/uL (4.8-10.8)
[2021-11-12 08:02] LABS: Magnesium 1.5 mg/dL (1.6-2.6)
[2021-11-12 08:03] LABS: Anion Gap 17 (12-20); Blood Urea Nitrogen 17 mg/dL (9-16); Calcium 9.3 mg/dL (8.4-10.2); Carbon Dioxide 23 mmol/L (22-29); Chloride 101 mmol/L (96-108); Creatinine Clr Calc Pharmacy 83.3; Estimated Glomerular Filt Rate > 60; Glucose Random 142 mg/dL (60-115); Potassium 3.8 mmol/L (3.3-5.1); Sodium 137 mmol/L (135-145)
[2021-11-12 08:47] LABS: Alanine Aminotransferase 55 U/L (0-40); Albumin Level 4.1 g/dL (3.5-5.0); Alkaline Phosphatase 97 U/L (39-117); Aspartate Amino Transferase 67 U/L (5-37); Bilirubin Direct 0.7 mg/dL (0.0-0.5); Bilirubin Total 1.4 mg/dL (0.0-1.0); Total Protein 6.9 g/dL (6.5-8.0)
[2021-11-12] MEDS: Thiamine HCL 100 MG TABLET PO (09:26)
[2021-11-12] MEDS: Multivitamin TABLET 1 TAB PO (09:26)
[2021-11-12] MEDS: Apixaban 5 MG TABLET PO ×2 (09:26→20:58)
[2021-11-12] MEDS: Folic Acid 1 MG TABLET PO (09:26)
--- NOTE | 2021-11-12 09:36 | P.PNIM_ITS ---
Subjective Subjective Date of Service: 11/12/21 Interval History: seen and examined this AM overnight events reviewed -- appears he began to withdraw (alcohol) and was initiated on phenobarb also appears cardizem drip restarted over night the patient reports his breathing is easier. he is aaox3 but vague as to why he is here he denies any chest pain, sob, palpitations Review of Systems negative except HPI Physical Exam Vital Signs: Vital Signs: Last Vital Signs Temp 98.2 F 11/12/21 07:33 Pulse 113 H 11/12/21 07:33 Resp 18 11/12/21 07:33 BP 131/98 H 11/12/21 07:33 Pulse Ox 95 11/12/21 07:33 BMI result Body Mass Index 31.5 Const: Other: General - no acute distress, appears comfortable Cardiovascular - s1s2, irr - rates 90-120 on tele; b/l LE edema improving; rales improved as well Lungs - scattered rales Abdomen - soft, nontender, no rebound or guarding Extremities - no edema bilaterally Neuro - awake and alert, no focal deficits Objective Data Active Medications Acetaminophen (Acetaminophen 325 Mg Tablet) 650 mg PO Q6H PRN PRN Reason: Pain, Mild (Pain Scale 1-3) Apixaban (Apixaban 5 Mg Tablet) 5 mg PO BID [facility] Last Admin: 11/12/21 09:26 Dose: 5 mg Documented by: CHASITY Folic Acid (Folic Acid 1 Mg Tablet) 1 mg PO DAILY [facility] Stop: 11/15/21 08:59 Last Admin: 11/12/21 09:26 Dose: 1 mg Documented by: CHASITY Diltiazem HCl 125 mg/ Sodium (Chloride) 125 mls @ 0 mls/hr IVCONT .Q0M [facility]; Protocol Last Admin: 11/12/21 03:06 Dose: 15 mg/hr, 15 mls/hr Documented by: KATIE Metoprolol Tartrate (Metoprolol Tartrate 25 Mg Tablet) 25 mg PO ONCE ONE; Protocol Stop: 11/12/21 09:35 Metoprolol Tartrate (Metoprolol Tartrate 50 Mg Tablet) 50 mg PO Q6H [facility]; Protocol Multivitamins/Vitamin C (Multivitamin Tablet) 1 tab PO DAILY [facility] Stop: 11/15/21 08:59 Last Admin: 11/12/21 09:26 Dose: 1 tab Documented by: CHASITY Ondansetron HCl (Ondansetron Hcl 4 Mg/2 Ml Vial) 4 mg IVPUSH Q8H PRN PRN Reason: Nausea and Vomiting Pharmacy Consult (Consult Rx Perform Med Rec) 1 each MISCELLANE ONCE PRN PRN Reason: Consult order Pharmacy Consult (Consult Rx Etoh Phenob Po Dose) 1 each MISCELLANE ONCE PRN; Protocol PRN Reason: Consult order Phenobarbital (Phenobarbital 100 Mg Tablet) 200 mg PO Q3H EDWIN; Protocol Stop: 11/12/21 12:01 Last Admin: 11/12/21 09:26 Dose: 200 mg Documented by: CHASITY Phenobarbital (Phenobarbital 15 Mg Tablet) 45 mg PO BID [facility]; Protocol Stop: 11/14/21 09:01 Phenobarbital (Phenobarbital 30 Mg Tablet) 30 mg PO BID [facility]; Protocol Stop: 11/16/21 09:01 Phenobarbital (Phenobarbital 30 Mg Tablet) 30 mg PO DAILY [facility]; Protocol Stop: 11/18/21 09:01 Sodium Chloride (0.9 % Sodium Chloride Flush 3 Ml Syringe) 3 ml IVFLUSH QSHIFT [facility] Last Admin: 11/12/21 09:28 Dose: Not Given Documented by: CHASITY Non-Admin Reason: IV Running Thiamine HCl (Thiamine Hcl 100 Mg Tablet) 100 mg PO DAILY [facility] Stop: 11/15/21 08:59 Last Admin: 11/12/21 09:26 Dose: 100 mg Documented by: CHASITY Labs CBC & Chem 7: 11/12/21 07:32 11/12/21 07:32 Labs: Laboratory Results - last 24 hr 11/11/21 11/11/21 11/12/21 09:13 09:37 07:32 MCV 106.1 H MCH 35.8 H MCHC 33.7 RDW 14.0 Plt Count 110 L MPV 11.0 Absolute Nucleated RBC 0.000 Nucleated RBC % (auto) 0.0 Anion Gap 22 H Estim Creat Clear Calc 97.0 Estimated GFR > 60 Random Glucose 178 H Calcium 8.9 Magnesium Total Bilirubin Direct Bilirubin AST ALT Alkaline Phosphatase Total Protein Albumin COVID-19 ([facility]) Negative COVID-19 Clin Com See Note 11/12/21 11/12/21 07:32 07:32 MCV MCH MCHC RDW Plt Count MPV Absolute Nucleated RBC Nucleated RBC % (auto) Anion Gap 17 Estim Creat Clear Calc 83.3 Estimated GFR > 60 Random Glucose 142 H Calcium 9.3 Magnesium 1.5 L Total Bilirubin 1.4 H Direct Bilirubin 0.7 H AST 67 H ALT 55 H Alkaline Phosphatase 97 Total Protein 6.9 Albumin 4.1 COVID-19 ([facility]) COVID-19 Clin Com Assessment and Plan (1) Acute congestive heart failure: Status: Acute (2) Atrial fibrillation with RVR: Status: Acute Plan This is a 56 yo M who presented to the ED with complaints of shortness of breath and is found to be in acute HF and rapid a. fib. His hopsital course has been complicated by acute alcohol withdrawal. 1. Acute CHF (presumed HFpEF, but repeat echo pending) continue IV lasix daily weights, i/o; low Na diet Cardiology input apprecaited await repeat 2d echo 2. A. Fib with RVR remains poorly controlled despite cardizem gtt, po metoprolol + digoxin load transition off cardizem gtt; will increase metoprolol to 50mg q6h; may need further digoxin -- await cardiology input continue Eliquis 5mg BID 3. Acute alcohol withdrawal patient reported that he does not drink daily anymore upon admission; overnight, went into withdrawal continue phenobarb per protocol continue thiamin/folate/mvi eventual care team consult 4. Alcoholic liver disease downtrending 5. Anion Gap metabolic acidosis resolved 6. HypoMg repleted monitor Full Code DVT pptx, Lovenox Patient requires continued hospitalization secondary to on going rapid a. fib, IV diuretics for CHF as well as acute alcohol withdrawal. Quality Stroke Does the patient have a stroke diagnosis?: No VTE Prior VTE?: No VTE Risk Level:: Medical - moderate - high VTE Device Contraindication: Treatment Not Indicated VTE Drug Contraindication: N/A - Med Ordered
--- NOTE | 2021-11-12 10:01 | MHC.CM.PN ---
CM ATTEMPTED TO SEE PT WHO WAS WITH [employer]. CM TO REVISIT
[2021-11-12] MEDS: Magnesium Sulfate/D5W 1 GM/100 ML PIGGYBACK IV ×2 (10:06→23:50)
--- NOTE | 2021-11-12 11:37 | PC.NURSE ---
pt experiencing increased anxiety, agitation, combative w sitter, trying to remove monitors, pt believes he is in a video game simulation, difficult to redirect. CIWA 16, provider notified.
--- NOTE | 2021-11-12 11:52 | PC.NURSE ---
pt medicated per provider order, pt redirected back to bed, site monitor reapplied. pt oriented to self, increased dillusions and confusion. called pharmacy to get IV digoxin - not available in [facility].
--- NOTE | 2021-11-12 12:14 | PM.PNCARD ---
Subjective Subjective Date of Service: 11/12/21 Principal diagnosis: CHF, atrial fibrillation Interval history: patient remains in atrial fibrillation rapid ventricular response to required maximal Cardizem drip. Says that he feels good and wants to go home however is totally confused and appears to be hallucinating. Review of Systems Review of Systems Yes Unobtainable due to mental status Reports confusion Psychiatric: Reports confusion Physical Exam Vital Signs: Last Vital Signs Temp 97.8 F 11/12/21 11:03 Pulse 115 H 11/12/21 11:03 Resp 23 H 11/12/21 11:03 BP 109/82 11/12/21 11:03 Pulse Ox 94 11/12/21 11:03 BMI result Body Mass Index 31.5 Const General: cooperative, comfortable, no acute distress, alert, awake, anxious and confusion Nutritional Appearance: overweight Orientation/consciousness: confusion Limitations: no limitations Neck Neck: Yes trachea midline, Yes supple and Yes no JVD Chest Chest palpation & inspection: normal inspection of the chest Resp Effort & Inspection: normal respiratory effort Auscultation: clear to auscultation bilaterally Cardio Jugular venous distension: no JVD Rate: tachycardic Rhythm: abnormal rhythm irregularly irregular Heart sounds: S1 normal heart sound present, S2 normal heart sound present, no click, no gallops, no murmurs and no rubs GI Auscultation: normal bowel sounds Skin General skin exam: no rashes or lesions noted Neuro General: no focal motor deficits and confusion Extrem General: Yes no clubbing, cyanosis or edema Objective Labs and Meds Result diagrams: 11/12/21 07:32 11/12/21 07:32 Lab results: Laboratory Results - last 24 hr 11/12/21 11/12/21 11/12/21 07:32 07:32 07:32 WBC 7.1 RBC 3.91 L Hgb 14.0 Hct 41.5 L MCV 106.1 H MCH 35.8 H MCHC 33.7 RDW 14.0 Plt Count 110 L MPV 11.0 Absolute Nucleated RBC 0.000 Nucleated RBC % (auto) 0.0 Sodium 137 Potassium 3.8 Chloride 101 Carbon Dioxide 23 Anion Gap 17 BUN 17 H D Creatinine 1.20 Estim Creat Clear Calc 83.3 Estimated GFR > 60 Random Glucose 142 H Calcium 9.3 Magnesium 1.5 L Total Bilirubin 1.4 H Direct Bilirubin 0.7 H AST 67 H ALT 55 H Alkaline Phosphatase 97 Total Protein 6.9 Albumin 4.1 Progress Note: A&P Assessment and plan (1) Atrial fibrillation with RVR: Status: Acute Assessment and Plan: Atrial fibrillation rapid ventricular response which has been difficult control but this appears to be secondary to his alcohol withdrawal question delirium tremens. I think till his alcohol withdrawal syndrome is not adequate control will have difficulty controlling his heart rate. Consider more aggressive treatment for the same. Agree with increase metoprolol to 50 mg Q 6 hours as long as blood pressure allows. Also digitalize him with 2 extra dose of digoxin. Continue full disclosure cardiac monitoring. Continue full oral anticoagulation. (2) Acute congestive heart failure: Status: Acute Assessment and Plan: Acute heart failure on presentation which seems to have improved with diuresis. 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 Will need echocardiogram. Continue current rate control with metoprolol and ditch. Can switch to p.o. Lasix at this point time. Strict intake and output chart needs to be pursued. Will continue to follow with you Time Spent With Patient Time: Total time spent is greater than 50% in coordination of care (as documented) at patient's floor/unit and/or counseling patient: Progress Note: Quality Stroke Does the patient have a stroke diagnosis?: No Procedures Date of Service Date of Service: 11/12/21
[2021-11-12] MEDS: LORazepam 2 MG/ML VIAL 1 MG IVPUSH (12:18)
--- NOTE | 2021-11-12 12:27 | PC.NURSE ---
pt medicated w 1 mg of ativan to assist pt with his anxiety and to allow him to participate and receive treatment. cardizem drip stopped per verbal physician order. provider at bedside.
[2021-11-12 12:49] LABS: Ammonia 29 umol/L (13-55)
--- NOTE | 2021-11-12 12:53 | W.PM.CCCN ---
History of Present Illness Data of Consult Service Date: 11/12/21 Requesting physician: Tim Myers Primary Care Provider: Unknown Physician HPI Reason for consult: RENZO I was called to see Mr. Galvan in ED overflow bec of RENZO with agitation. The patient is a 56 yo M with PMH of alcohol abuse.? Was admitted to [facility] last year for alcohol withdrawal.? Was admitted to [facility] last month with newly diagnosed atrial fibrillation with RVR, treated with Cardizem drip, digoxin and metoprolol, along with Eliquis. ?But he left AMA two days later, not taking any medications for rate control or anticoagulation.? Echo in 2020 showed EF 53% The patient was BIBA to the ED yesterday morning complaining of 10 days of shortness of breath, orthopnea, PND, and swollen lower extremities.? The patient stated that his last drink was 2 days prior. ?On arrival, heart rate was 170-210.? BNP was 1670.? BUN/creat 11/1.0.? Tbili 2.8 (was normal last month), mild transaminase elevation.? AG met acidosis attributed to alcohol.? CXR was clear.? Had JVD w rales on exam w pitting edema.? The patient was given diltiazem and Eliquis, Lasix, and metoprolol and admitted to Medicine. This morning started exhibiting signs of alcohol withdrawal.? Was started on oral phenobarbital protocol. Dr. Myers called me to see him about noon.? On my initial exam, he was fully awake and mildly agitated, moving in bed and picking at his lines and monitors. ?Breathing easy w Sat 94% on room air.? He?d already had oral phenobarbital 7 mg/kg, plus Ativan 1 mg.? I recommended another 3mg/kg phenobarbital, Ativan 2mg, and valproate 750mg IV. I was called back at about 1315 to see him bec his condition had worsened.? He was being restrained by two security guards.? He was completely delirious and disoriented, tachypneic, and wheezing, with increased WOB.? HR was about 130, afib.? RR 30+, unable to get a Sat. I gave him a total of 100mg propofol IV while we put another IV in and prepared to take him over to ICU.? We put a NRBFM on him for the transport to ICU, in preparation for intubation.? On arrival to ICU, HR was about 130, BP 136/90, RR about 20, Sat 92% on the high flow NRBFM.? The patient was intubated uneventfully (see separate note).? We started him on esmolol and propofol drips, and gave him dig 0.25 mg IV. Initial Sat was low 90?s on AC 100%/+5.? CXR showed very low lung vols, mague compared with the film from yesterday.? We upped the peep to 14cm and his FiO2 came down rapidly.? His HR slowed after the digoxin and his esmolol was tapered off, with HR staying about 80, afib.? He had no JVD, chest was clear, heart tones barely audible, abdomen benign, no liver, trace central edema. LABORATORY DATA:? Below.? Notably, BUN/creatinine this morning were 17/1.2, bicarb up to 23, total bili down to 1.4, NH3 29. ECHOCARDIOGRAM done by [facility], interpreted by me:? Normal LV wall thickness. ?Left ventricle is dilated with EF 10-15%.? RV size looks normal with reduced function.? No MR.? Trace TR.? Normal PA pressure.? IVC 2.4 cm with no insp collapse. IMPRESSION: 1. RENZO.? Continue propofol, start Librium. 2. Atrial fibrillation w RVR.? Adequately controlled now on just digoxin + control of his RENZO 3. CMOP.? Rate related vs alcoholic.? May need ischemia w/u. 4. Acute respiratory failure.? 2? uncontrolled RENZO. 5. ROXANA.? Mild, post diuresis.? 2? ATN. 6. Alcoholic hepatitis.? Mild.? Check hepatitis screen. 7. ID:? No evidence of any infection. 8. Metabolic.? Replete Mg. Critical care time (excluding procedures):? 90+ minutes. [facility] Past Medical History Medical History Alcohol dependence with withdrawal Alcoholic hepatitis Atrial fibrillation with rapid ventricular response HTN (hypertension) Family History Family History Father CAD (coronary artery disease) Surgical History Surgical History No pertinent past surgical history Social History Social History Household Members: Unknown / Unable to assess Housing: Unknown / Unable to assess Do you presently have visiting nurse or other home services: No Unable to assess alcohol history related to: Unable to respond Alcohol intake: current Alcohol intake frequency: a few times a week Alcohol type: wine Patient Tobacco Use Status: Never used Tobacco service: No Current occupational status: unemployed Meds Allergies Allergy/AdvReac Type Severity Reaction Status Date / Time No Known Allergies Allergy Verified 01/09/21 12:30 [No Known Allergies*] Active Medications: Current Medications Acetaminophen (Acetaminophen 325 Mg Tablet) 650 mg PO Q6H PRN PRN Reason: Pain, Mild (Pain Scale 1-3) Apixaban (Apixaban 5 Mg Tablet) 5 mg PO BID COUNT [facility] Last Admin: 11/12/21 09:26 Dose: 5 mg Documented by: Digoxin (Digoxin 0.5 Mg/2 Ml Ampul) 0.25 mg IVPUSH Q6H COUNT [facility]CLUDES [facility] Stop: 11/12/21 16:16 Folic Acid (Folic Acid 1 Mg Tablet) 1 mg PO DAILY [facility] Stop: 11/15/21 08:59 Last Admin: 11/12/21 09:26 Dose: 1 mg Documented by: Diltiazem HCl 125 mg/ Sodium (Chloride) 125 mls @ 0 mls/hr IVCONT .Q0M COUNT [facility]CLUD[facility]; Protocol Last Titration: 11/12/21 12:30 Dose: 0 mg/hr, 0 mls/hr Documented by: Valproic Acid 750 mg/ Dextrose 57.5 mls @ 54.995 mls/hr IV ONCE COUNT INCLUDES [facility] Magnesium Oxide (Magnesium Oxide 400 Mg Tablet) 400 mg PO BIDPC COUNT INCLUDES THE [facility] Metoprolol Tartrate (Metoprolol Tartrate 50 Mg Tablet) 50 mg PO Q6H COUNT [facility]CLUD[facility]; Protocol Multivitamins/Vitamin C (Multivitamin Tablet) 1 tab PO DAILY [facility] Stop: 11/15/21 08:59 Last Admin: 11/12/21 09:26 Dose: 1 tab Documented by: Ondansetron HCl (Ondansetron Hcl 4 Mg/2 Ml Vial) 4 mg IVPUSH Q8H PRN PRN Reason: Nausea and Vomiting Pharmacy Consult (Consult Rx Perform Med Rec) 1 each MISCELLANE ONCE PRN PRN Reason: Consult order Pharmacy Consult (Consult Rx Etoh Phenob Po Dose) 1 each MISCELLANE ONCE PRN; Protocol PRN Reason: Consult order Phenobarbital (Phenobarbital 15 Mg Tablet) 45 mg PO BID COUNT [facility]; Protocol Stop: 11/14/21 09:01 Phenobarbital (Phenobarbital 30 Mg Tablet) 30 mg PO BID COUNT [facility]; Protocol Stop: 11/16/21 09:01 Phenobarbital (Phenobarbital 30 Mg Tablet) 30 mg PO DAILY COUNT [facility]; Protocol Stop: 11/18/21 09:01 Sodium Chloride (0.9 % Sodium Chloride Flush 3 Ml Syringe) 3 ml IVFLUSH QSHIFT COUNT [facility]CLUDES [facility] Last Admin: 11/12/21 09:28 Dose: Not Given Documented by: Thiamine HCl (Thiamine Hcl 100 Mg Tablet) 100 mg PO DAILY COUNT [facility]CLUD[facility] Stop: 11/15/21 08:59 Last Admin: 11/12/21 09:26 Dose: 100 mg Documented by: Home Medications Medication Instructions Recorded Confirmed Last Taken Type ascorbic acid 1,000 1 ea PO DAILY 01/09/21 11/11/21 11/09/21 History xg-zcruhbcckjni-dkzrodka powder 1 effervescent pack (Emergen-C) Physical Exam Vital Signs: Vital Signs: Last Vital Signs Temp 97.8 F 11/12/21 11:03 Pulse 115 H 11/12/21 11:03 Resp 23 H 11/12/21 11:03 BP 109/82 11/12/21 11:03 Pulse Ox 94 11/12/21 11:03 BMI result Body Mass Index 31.5 Results Labs CBC & Chem 7: 11/12/21 07:32 11/12/21 07:32 Labs: Short CBC 11/12/21 Range/Units 07:32 WBC 7.1 (4.8-10.8) X10*3/uL Hgb 14.0 (14.0-18.0) g/dl Hct 41.5 L (42.0-52.0) % Plt Count 110 L (160-400) X10*3/uL BMP 11/12/21 07:32 Sodium 137 Potassium 3.8 Chloride 101 Carbon Dioxide 23 BUN 17 H D Creatinine 1.20 Calcium 9.3 Liver Function 11/12/21 Range/Units 07:32 Total Bilirubin 1.4 H (0.0-1.0) mg/dL Direct Bilirubin 0.7 H (0.0-0.5) mg/dL AST 67 H (5-37) U/L ALT 55 H (0-40) U/L Alkaline Phosphatase 97 (39-117) U/L Albumin 4.1 (3.5-5.0) g/dL Critical Care Time Critical Care Time (minutes): 90
[2021-11-12] MEDS: LORazepam 2 MG/ML VIAL IVPUSH (13:06)
--- NOTE | 2021-11-12 13:07 | PC.NURSE ---
Addendum entered by Uzair Javier 11/12/21 14:11: medicated for symptoms related to withdrawal. Original Note: medicated w 2mg ativan per provider order.
--- NOTE | 2021-11-12 13:08 | PM.EVENT ---
Event Note Date of Service: 11/12/21 Event Note: Asked to the see the patient multiple times after morning rounds for worsening confusion / agitation. He has pulled out IV and his cardiac leads. Despite a sitter, his behavior remains difficult to control. Pt seen and examined bedside. He is completely disoriented currently, a significant change from this morning. He is clearly in alcohol withdrawal. Critical Care consult requested. Patient seen by Dr. Hastings in the ICU bedside. Following recommendations: Valproate 750mg x 1 now; IV ativan x 2mg now; Give PO phenobarb 300mg (has received 700mg total -- recommendations from Dr. Hastings to get to 10mg/kg total dose, hence 300mg more). Above orders placed (will give phenobarb 300 PO after seeing response to IV ativan). If his withdrawal cannot be managed shortly, he would need ICU level of care.
--- NOTE | 2021-11-12 13:20 | PC.NURSE ---
pt diaphoretic, RR 45, pt incoherently mumbling, trying to get out of bed. security at bedside with pt. provider notified to come see pt.
--- NOTE | 2021-11-12 13:57 | PC.NURSE ---
Addendum entered by Uzair Javier 11/12/21 14:00: propofol override verbal order for Dr Hastings. pt transferred to ICU for intubation. Original Note: provider - Dr Hastings - pushed 10mL of 200mg/20ml propofol @ 1348. 18G IV placed right forearm, provider placed 20G IV in L AC. pt on non rebreather mask. put on by resp per provider request.
[2021-11-12] MEDS: propofoL 200 MG/20 ML VIAL 150 MG IVPUSH (14:02)
[2021-11-12] MEDS: Ketamine HCl/NS 50 MG/5 ML SYRINGE IVPUSH (14:02)
[2021-11-12] MEDS: EPINEPHrine 1 MG/10 ML SYRINGE 0.4 MG IVPUSH (14:31)
[2021-11-12] MEDS: Rocuronium Bromide 50 MG/5 ML VIAL IVPUSH (14:32)
[2021-11-12] MEDS: Esmolol HCl/NaCl Iso 2,500 MG/250 ML IV.SOLN 29.94 MG IVCONT (14:36)
[2021-11-12] MEDS: propofoL 1,000 MG/100 ML VIAL 17.96 MG IVCONT (14:37)
[2021-11-12] MEDS: Lactated Ringers 1,000 ML 50 ML IVCONT (14:44)
--- NOTE | 2021-11-12 14:55 | W.PM.CCHP ---
Procedures Date of Service Date of Service: 11/12/21 Intubation Intubation Comments: PROCEDURE NOTE:? Tracheal intubation. INDICATIONS:? RENZO with altered MS and gross ventilatory failure. Anesthesia:? Propofol 50mg, Ketamine 50mg, Zemuron 50mg; premedication with Epinephrine 40 ug. Procedure:? The patient developed progressive altered MS, tachypnea, and gross ventilatory failure. He was preoxygenated with high flow NRBFM, and emergently transferred to the ICU. RSI was carried out with the meds above.? The glottis was easily visualized with the Proview 3 hypreangulated blade, and the trachea was intubated with a 7.5 ETT via direct vision, atraumatic.? BSBE, +CO2, SpO2 maintained.? The tube was secured at 24 cm at upper lip. The patient john the procedure well with no complications.? Post op chest x-ray showed the ETT at least 2cm above the sonya. Lung vols are low compared to yest's film. Consent for Procedure: Emergent-no informed consent obtained
[2021-11-12] MEDS: fentaNYL citrate/PF 100 MCG/2 ML VIAL IVPUSH (15:18)
[2021-11-12] MEDS: fentaNYL citrate/NS 1,000 MCG/100 ML PLAST..BAG 2.5 MCG IVCONT (15:20)
[2021-11-12] MEDS: Digoxin 0.5 MG/2 ML AMPUL 0.25 MG IVPUSH (15:24)
--- NOTE | 2021-11-12 15:43 | PC.NURSE ---
Pt to ICU from ed overflow. Pt intuabted with 7.5, 24 at the lip. Md pushed IV meds for intubation. OG tube inserted, iniguez placed. Pt given bed bath/ skin care.
[2021-11-12 16:10] LABS: ABG HCO3 22 mmol/L (22-26); ABG pCO2 37 mmHg (32-45); ABG pH 7.38 (7.35-7.45); ABG pO2 134 mmHg (83-108)
--- NOTE | 2021-11-12 16:57 | PM.EVENT ---
Event Note Date of Service: 11/12/21 Event Note: echocardiogram shows markedly reduced LV ejection fraction 10-15%, was expected to have tachycardia mediated cardiomyopathy. Patient transferred to ICU for severe alcohol withdrawal and currently intubated. His heart rate is much better control. I think this will eventually lead to improvement in his cardiac function. Continue rate control with metoprolol and digoxin. If he becomes hemodynamically unstable or has significant heart failure may require CORTNEY guided cardioversion. Continue full oral anticoagulation. Will continue to follow with the patient. Prognosis is guarded
[2021-11-12] MEDS: propofoL 1,000 MG/100 ML VIAL 23.95 MG IVCONT (17:15)
[2021-11-12] MEDS: propofoL 1,000 MG/100 ML VIAL 29.94 MG IVCONT (20:58)
[2021-11-12] MEDS: chlordiazePOXIDE HCl 25 MG CAPSULE OG-TUBE (20:58)
[2021-11-13] VITALS (31 sets, daily range): BP systolic 76–108; BP diastolic 50–76; PULSE 64–109; RESP 13–36; TEMP 34–37.5; O2SAT 91–97; BMI 32.1
[2021-11-13] MEDS: Metoprolol Tartrate 12.5 MG HALFTAB OG-TUBE (00:18)
[2021-11-13] MEDS: propofoL 1,000 MG/100 ML VIAL 23.95 MG IVCONT (00:19)
[2021-11-13] MEDS: chlordiazePOXIDE HCl 25 MG CAPSULE OG-TUBE ×3 (04:05→18:18)
[2021-11-13] MEDS: propofoL 1,000 MG/100 ML VIAL 20.96 MG IVCONT ×2 (04:14→09:08)
--- NOTE | 2021-11-13 04:42 | PC.NURSE ---
Afebrile. Afib on tele, HR 60-80s. New order for metoprolol 12.5 mg OGT BID. SBP 90-100s, MAP > 65. Propofol and fentanyl gtt titrated down as tolerated to RASS -3. +C/G. ETT #7.5, 25 cm at lip. Vent settings titrated- currently on AC 14/450/10/45%, synchronous. OGT initially to LWS, draining minimal bile- clamped. Solis in place, draining yellow urine with sediment, UOP approx 50-100 ml/hr. Skin intact- scattered bruising, flushed, clammy. PIV leaking/occluded- 2 new 18G IVs inserted to B/L FA. Repositioned q2hr, bathed this AM.
[2021-11-13 05:37] LABS: VBG Base Excess 0.4 mmol/L; VBG HCO3 24 mmol/L (22-26); VBG pCO2 35 mmHg; VBG pH 7.43 (7.32-7.43); VBG pO2 91 mmHg
[2021-11-13 05:40] LABS: Venous Blood Gas Refer to POC result
[2021-11-13 05:45] LABS: Hematocrit 38.8 % (42.0-52.0); Hemoglobin 12.8 g/dl (14.0-18.0); Mean Corpuscular Hemoglobin 35.6 pg (27.0-33.0); Mean Corpuscular Volume 107.8 fL (80.0-98.0); Red Cell Distribution Width 13.8 % (11.0-16.0); White Blood Count 5.5 X10*3/uL (4.8-10.8)
[2021-11-13 05:55] LABS: Lactic Acid 0.8 mmol/L (0.5-2.0)
[2021-11-13 06:03] LABS: Alanine Aminotransferase 59 U/L (0-40); Albumin Level 3.3 g/dL (3.5-5.0); Alkaline Phosphatase 84 U/L (39-117); Anion Gap 15 (12-20); Aspartate Amino Transferase 69 U/L (5-37); Bilirubin Total 0.6 mg/dL (0.0-1.0); Blood Urea Nitrogen 15 mg/dL (9-16); Calcium 8.5 mg/dL (8.4-10.2); Carbon Dioxide 23 mmol/L (22-29); Chloride 106 mmol/L (96-108); Creatinine Clr Calc Pharmacy 114.6; Estimated Glomerular Filt Rate > 60; Glucose Random 95 mg/dL (60-115); Phosphorus 4.3 mg/dL (2.7-4.5); Potassium 3.5 mmol/L (3.3-5.1); Sodium 140 mmol/L (135-145); Total Protein 5.5 g/dL (6.5-8.0)
[2021-11-13 06:04] LABS: Digoxin 0.5 ng/mL (0.8-2.0)
[2021-11-13 06:10] LABS: Mean Platelet Volume 10.9 fL (9.4-12.4); Platelet Count 80 X10*3/uL (160-400)
[2021-11-13 06:11] LABS: B Type Natriuretic Peptide 1436 pg/mL (<100); Troponin-I High Sensitivity 134.2 ng/L (<3.5-35.0)
[2021-11-13 06:23] LABS: HBS Num1 193.56 mIU/mL (0-7.99); HBsAGNum1 0.22 S/CO (0.00-0.99); Hepatitis B Core Antibody Nonreactive (Nonreactive); Hepatitis B Surface Antigen Negative (Negative); ~HepC Num1 0.15 S/CO (0.00-0.79); ~Hepatitis B Surface Antibody REACTIVE (Nonreactive); ~Hepatitis C Antibody Nonreactive (Nonreactive)
[2021-11-13] MEDS: Thiamine HCL 100 MG TABLET PO (08:42)
[2021-11-13] MEDS: Chlorhexidine Gluc Oral Rinse 15 ML MOUTHWASH BUCCAL ×3 (08:42→20:02)
[2021-11-13] MEDS: Folic Acid 1 MG TABLET PO (08:42)
[2021-11-13] MEDS: 0.9 % Sodium Chloride Flush 3 ML SYRINGE IVFLUSH ×2 (08:42→14:10)
[2021-11-13] MEDS: Apixaban 5 MG TABLET PO ×2 (08:42→20:02)
[2021-11-13] MEDS: Multivitamin TABLET 1 TAB PO (08:42)
--- NOTE | 2021-11-13 11:52 | PM.CCPN ---
Subjective Subjective Date of Service: 11/13/21 Interval History: Mr. Galvan was transferred to the ICU yesterday with florid RENZO and AFib with RVR. The patient is a 56 yo M with PMH of alcohol abuse.? Was admitted to [facility] last year for alcohol withdrawal, alcoholic hepatitis with severe jaundice, and AFlutter with RVR.? He converted to SR spontaneously within 24 hrs.? Echo at that time was fairly normal, with EF 53% and normal IVC and right heart.? His jaundice and hepatitis improved w steroids.? He was discharged on diltiazem and a prednisone taper on hospital day#3. Was admitted to [facility] last month with atrial fibrillation with RVR, treated with Cardizem drip, digoxin and metoprolol, along with Eliquis. ?But he left AMA two days later, not taking any medications for rate control or anticoagulation. The patient was BIBA to the ED on November 11 complaining of 10 days of shortness of breath, orthopnea, PND, and swollen lower extremities.? The patient stated that his last drink was 2 days prior.? On arrival, heart rate was 170-210, Afib.? BNP was 1670.? BUN/creat 11/1.0.? Tbili 2.8 (was normal last month), mild transaminase elevation.? AG met acidosis attributed to alcohol.? CXR was clear.? Had JVD w rales on exam w pitting edema.? The patient was given diltiazem and Eliquis, Lasix, and metoprolol. The next morning (yesterday) started exhibiting signs of alcohol withdrawal.? Was started on oral phenobarbital protocol.? In the early afternoon, he went into florid RENZO and was brought to the ICU and intubated.? After intubation, and starting on a propofol drip and a dose of digoxin, the patient's heart rate slowed to 80s, atrial fibrillation, and he?s pretty much been steady at that heart rate since then, in atrial fibrillation.? His heart rate does go up to the 100s with stimulation. This morning, on my exam, he?s on propofol at 40 mcg, and fentanyl at 25 mcg.? Heart rate is 90, atrial fibrillation.? Blood pressure 99/72. ?On assist control mode 14/450/45%/+10, respiratory rate is 16, Ve 6.3L, PIP 24cm, ETCo2 30, Sat 95%.? This morning's peripheral venous blood gas showed 7.43/35/0. ?He had no JVD, chest was clear, heart rate and rhythm irregular, with normal-sounding S1 and S2, with no murmur or gallops.? Abdomen is benign, no liver, no peripheral edema. LABORATORY DATA:? Below.? Notably, lactic acid is normal, total bili down to 0.6, BNP down to 1400s. ECHOCARDIOGRAM done by the [facility], interpreted by me:? Normal LV wall thickness.? Left ventricle is dilated with EF 10-15%.? RV size looks normal with reduced function.? No MR.? Trace TR.? Normal PA pressure.? IVC 2.4 cm with no insp collapse. IMPRESSION: 1. RENZO.? Continue propofol.? Started Librium yesterday.? We?ll do a sedation holiday tomorrow. 2. Atrial fibrillation w RVR.? Adequately controlled now on just digoxin + control of his RENZO.? Discussed at length with Dr. Baker. ?Plan CORTNEY/cardioversion tomorrow morning. 3. CMOP.? Rate related vs alcoholic.? May need ischemia w/u. 4. Acute respiratory failure.? 2? uncontrolled RENZO. 5. ROXANA.? Resolved. 6. Alcoholic hepatitis.? Mild.? Stable.? Hepatitis screen positive only for HBsAb. 7. ID:? No evidence of any infection. 8. Metabolic.? Repleted phos and Mg.? Replete potassium. 9. Nutrition:? Started on Jevity The patient's mother (emergency contact and defacto HCP) came in and I spoke with her about his condition, prognosis and possible CORTNEY/cardioversion. Consent obtained. Critical care time:? 75+ minutes. Critical Care Time (minutes): 75 Physical Exam Vital Signs: Vital Signs: Last Vital Signs Temp 98.1 F 11/13/21 11:00 Pulse 88 11/13/21 11:00 Resp 14 11/13/21 11:00 BP 83/53 L 11/13/21 11:00 Pulse Ox 95 11/13/21 11:00 BMI result Body Mass Index 32.1 Objective Data Labs CBC & Chem 7: 11/14/21 05:16 11/14/21 05:16 Labs: Laboratory Results - last 24 hr 11/12/21 11/12/21 11/13/21 12:36 16:02 05:29 WBC RBC Hgb Hct MCV MCH MCHC RDW Plt Count MPV Absolute Nucleated RBC Nucleated RBC % (auto) O2 Saturation 99.0 ABG pH at Pt Temp 7.38 ABG pCO2 at Pt Temp 37 ABG pO2 at Pt Temp 134 H ABG HCO3 22 ABG Base Excess (Actual) -2.0 VBG pH 7.43 VBG pCO2 35 VBG pO2 91 VBG HCO3 24 VBG O2 Saturation 97.0 VBG Base Excess 0.4 Sodium Potassium Chloride Carbon Dioxide Anion Gap BUN Creatinine Estim Creat Clear Calc Estimated GFR Random Glucose Lactic Acid Calcium Phosphorus Magnesium Total Bilirubin AST ALT Alkaline Phosphatase Ammonia 29 Troponin I High Sens B-Natriuretic Peptide Total Protein Albumin Digoxin Hep Bs Antigen Hep Bs Antibody Hep B Core Total Ab Hepatitis C Ab (EIA) 11/13/21 11/13/21 11/13/21 05:33 05:33 05:33 WBC 5.5 RBC 3.60 L Hgb 12.8 L Hct 38.8 L MCV 107.8 H MCH 35.6 H MCHC 33.0 RDW 13.8 Plt Count 80 L D MPV 10.9 Absolute Nucleated RBC 0.000 Nucleated RBC % (auto) 0.0 O2 Saturation ABG pH at Pt Temp ABG pCO2 at Pt Temp ABG pO2 at Pt Temp ABG HCO3 ABG Base Excess (Actual) VBG pH VBG pCO2 VBG pO2 VBG HCO3 VBG O2 Saturation VBG Base Excess Sodium 140 Potassium 3.5 Chloride 106 Carbon Dioxide 23 Anion Gap 15 BUN 15 Creatinine 0.88 Estim Creat Clear Calc 114.6 Estimated GFR > 60 Random Glucose 95 Lactic Acid Calcium 8.5 D Phosphorus 4.3 Magnesium 2.0 Total Bilirubin 0.6 AST 69 H ALT 59 H Alkaline Phosphatase 84 Ammonia Troponin I High Sens B-Natriuretic Peptide Total Protein 5.5 L D Albumin 3.3 L Digoxin 0.5 L Hep Bs Antigen Hep Bs Antibody Hep B Core Total Ab Hepatitis C Ab (EIA) 11/13/21 11/13/21 11/13/21 05:33 05:33 05:33 WBC RBC Hgb Hct MCV MCH MCHC RDW Plt Count MPV Absolute Nucleated RBC Nucleated RBC % (auto) O2 Saturation ABG pH at Pt Temp ABG pCO2 at Pt Temp ABG pO2 at Pt Temp ABG HCO3 ABG Base Excess (Actual) VBG pH VBG pCO2 VBG pO2 VBG HCO3 VBG O2 Saturation VBG Base Excess Sodium Potassium Chloride Carbon Dioxide Anion Gap BUN Creatinine Estim Creat Clear Calc Estimated GFR Random Glucose Lactic Acid 0.8 Calcium Phosphorus Magnesium Total Bilirubin AST ALT Alkaline Phosphatase Ammonia Troponin I High Sens 134.2 H* D B-Natriuretic Peptide 1436 H Total Protein Albumin Digoxin Hep Bs Antigen Negative Hep Bs Antibody REACTIVE Hep B Core Total Ab Nonreactive Hepatitis C Ab (EIA) Nonreactive Quality Stroke Does the patient have a stroke diagnosis?: No VTE Prior VTE?: No VTE Risk Level:: Medical - moderate - high VTE Device Contraindication: Treatment Not Indicated VTE Drug Contraindication: N/A - Med Ordered Critical Care Time Critical Care Time (minutes): 90
--- NOTE | 2021-11-13 12:19 | PM.PNCARD ---
Subjective Subjective Date of Service: 11/13/21 <KARY Jensen - Last Filed: 11/13/21 12:36> 11/13/21 <Maximino Baker MD - Last Filed: 11/13/21 12:58> Principal diagnosis: CHF, atrial fibrillation <KARY Jensen - Last Filed: 11/13/21 12:36> Interval history: Cardiology follow up for afib, HF. Seen at 1100. He is observed in bed, sedated, intubated with vent support. No acute distress noted. Tele showing afib with rate 70-90s. <KARY Jensen - Last Filed: 11/13/21 12:36> Review of Systems Review of Systems Yes Unobtainable due to mental condition <KARY Jensen - Last Filed: 11/13/21 12:36> Physical Exam Vital Signs: Last Vital Signs Temp 98.6 F 11/13/21 12:00 Pulse 81 11/13/21 12:00 Resp 14 11/13/21 12:00 BP 90/71 11/13/21 12:00 Pulse Ox 95 11/13/21 12:00 BMI result Body Mass Index 32.1 <KARY Jensen - Last Filed: 11/13/21 12:36> Const Other: sedated <KARY Jensen - Last Filed: 11/13/21 12:36> General: no acute distress <KARY Jensen - Last Filed: 11/13/21 12:36> Neck Neck: Yes normal visual inspection <KARY Jensen - Last Filed: 11/13/21 12:36> Resp Other: On Vent, breathing unlabored. Lungs coarse clear without distinct rales or rhonci noted <KARY Jensen Last Filed: 11/13/21 12:36> Auscultation: no rales, no rhonchi and no wheezes <KARY Jensen Last Filed: 11/13/21 12:36> Cardio Rate: regular rate <KARY Jensen Last Filed: 05/12/22 12:36> Rhythm: abnormal rhythm irregularly irregular <KARY Jensen - Last Filed: 11/13/21 12:36> Heart sounds: S1 normal heart sound present and S2 normal heart sound present <KARY Jensen - Last Filed: 11/13/21 12:36> GI Inspection: Yes normal to inspection <KARY Jensen Last Filed: 11/13/21 12:36> Extrem General: Yes normal to inspection and No edema <KARY Jensen - Last Filed: 11/13/21 12:36> Objective Labs and Meds Result diagrams: : 11/13/21 05:33 11/13/21 05:33 <KARY Jensen - Last Filed: 11/13/21 12:36> Lab results: Laboratory Results - last 24 hr 11/12/21 11/12/21 11/13/21 12:36 16:02 05:29 WBC RBC Hgb Hct MCV MCH MCHC RDW Plt Count MPV Absolute Nucleated RBC Nucleated RBC % (auto) O2 Saturation 99.0 ABG pH at Pt Temp 7.38 ABG pCO2 at Pt Temp 37 ABG pO2 at Pt Temp 134 H ABG HCO3 22 ABG Base Excess (Actual) -2.0 VBG pH 7.43 VBG pCO2 35 VBG pO2 91 VBG HCO3 24 VBG O2 Saturation 97.0 VBG Base Excess 0.4 Sodium Potassium Chloride Carbon Dioxide Anion Gap BUN Creatinine Estim Creat Clear Calc Estimated GFR Random Glucose Lactic Acid Calcium Phosphorus Magnesium Total Bilirubin AST ALT Alkaline Phosphatase Ammonia 29 Troponin I High Sens B-Natriuretic Peptide Total Protein Albumin Digoxin Hep Bs Antigen Hep Bs Antibody Hep B Core Total Ab Hepatitis C Ab (EIA) 11/13/21 11/13/21 11/13/21 05:33 05:33 05:33 WBC 5.5 RBC 3.60 L Hgb 12.8 L Hct 38.8 L MCV 107.8 H MCH 35.6 H MCHC 33.0 RDW 13.8 Plt Count 80 L D MPV 10.9 Absolute Nucleated RBC 0.000 Nucleated RBC % (auto) 0.0 O2 Saturation ABG pH at Pt Temp ABG pCO2 at Pt Temp ABG pO2 at Pt Temp ABG HCO3 ABG Base Excess (Actual) VBG pH VBG pCO2 VBG pO2 VBG HCO3 VBG O2 Saturation VBG Base Excess Sodium 140 Potassium 3.5 Chloride 106 Carbon Dioxide 23 Anion Gap 15 BUN 15 Creatinine 0.88 Estim Creat Clear Calc 114.6 Estimated GFR > 60 Random Glucose 95 Lactic Acid Calcium 8.5 D Phosphorus 4.3 Magnesium 2.0 Total Bilirubin 0.6 AST 69 H ALT 59 H Alkaline Phosphatase 84 Ammonia Troponin I High Sens B-Natriuretic Peptide Total Protein 5.5 L D Albumin 3.3 L Digoxin 0.5 L Hep Bs Antigen Hep Bs Antibody Hep B Core Total Ab Hepatitis C Ab (EIA) 11/13/21 11/13/21 11/13/21 05:33 05:33 05:33 WBC RBC Hgb Hct MCV MCH MCHC RDW Plt Count MPV Absolute Nucleated RBC Nucleated RBC % (auto) O2 Saturation ABG pH at Pt Temp ABG pCO2 at Pt Temp ABG pO2 at Pt Temp ABG HCO3 ABG Base Excess (Actual) VBG pH VBG pCO2 VBG pO2 VBG HCO3 VBG O2 Saturation VBG Base Excess Sodium Potassium Chloride Carbon Dioxide Anion Gap BUN Creatinine Estim Creat Clear Calc Estimated GFR Random Glucose Lactic Acid 0.8 Calcium Phosphorus Magnesium Total Bilirubin AST ALT Alkaline Phosphatase Ammonia Troponin I High Sens 134.2 H* D B-Natriuretic Peptide 1436 H Total Protein Albumin Digoxin Hep Bs Antigen Negative Hep Bs Antibody REACTIVE Hep B Core Total Ab Nonreactive Hepatitis C Ab (EIA) Nonreactive <KARY Jensen - Last Filed: 11/13/21 12:36> Imaging Radiologist's impression: Impressions Chest X-Ray 11/12/21 15:04 IMPRESSION: Satisfactory position of endotracheal tube and nasogastric tube. Lung volumes. Enlarged cardiac silhouette and bibasilar atelectasis or consolidation. <KARY Jensen - Last Filed: 11/13/21 12:36> Progress Note: A&P Assessment and plan (1) Atrial fibrillation with RVR: Status: Acute <KAYR Jensen - Last Filed: 11/13/21 12:36> Assessment and Plan: Newer finding of atrial fibrillation. Had not been taking meds at home. Admit with CHF, afib RVR. Echo done 11/12/21 showing EF 10-15%, mildly dilated LA, no valve abn. He is being treated with heart rate control using Metoprolol. He has been in acute alcohol withdrawal and currently sedated and intubated in ICU. Tele shows afib, rates 70-90s currently. BP soft, 90/54 this am. Will stop Metoprolol and start on Digoxin 0.25mg daily. He has already recieved a digoxin load. He is on Eliquis for anticoagulation. If BP remains low, then may require a CORTNEY cardioversion. We will follow <KARY Jensen - Last Filed: 11/13/21 12:36> Newer finding of atrial fibrillation. Had not been taking meds at home. Admit with CHF, afib RVR. Echo done 11/12/21 showing EF 10-15%, mildly dilated LA, no valve abn. He is being treated with heart rate control using Metoprolol. He has been in acute alcohol withdrawal and currently sedated and intubated in ICU. Tele shows afib, rates 70-90s currently. BP soft, 90/54 this am. Will stop Metoprolol and start on Digoxin 0.25mg daily. He has already recieved a digoxin load. He is on Eliquis for anticoagulation. If BP remains low, then may require a CORTNEY cardioversion. We will follow Patient seen and case discussed with Patricia haskins here as well as Dr. Hastings. patient with borderline low blood pressure. Heart rate is well controlled since intubation and sedation. Most likely cause for his rapid ventricular response in addition was due to his alcohol withdrawal. However his blood pressure still remains low. Discontinue metoprolol therapy. Add digoxin 0.25 mg to his regimen for rate control. Continue full oral anticoagulation. At this point time given his low blood pressure marked LV systolic dysfunction, he may benefit from rhythm control approach with resumption of atrial kick. Discussed with the critical care team. Will plan for CORTNEY guided cardioversion tomorrow in the intensive care unit. Please discussed with patient's next of kin to address this issue. Overall prognosis is guarded. CHF seems to have improved. Continue supportive care. <Maximino Baker MD - Last Filed: 11/13/21 12:58> (2) Acute congestive heart failure: Status: Acute <KARY Jensen - Last Filed: 11/13/21 12:36> Assessment and Plan: Acute systolic HF. EF 10-15%, which is likely tachycardia mediated. Reported sob, edema on admit. BNP elevated at 1670. CXR showed no acute findings. He has not recieved diuretics this admit that I see. He is currently on vent support due to his alcohol withdrawal, not respiratory failure. On exam today, he does not appear to have fluid overload. BNP down to 1436. <KARY Jensen - Last Filed: 11/13/21 12:36> (3) Cardiomyopathy: Status: Acute <KARY Jensen - Last Filed: 11/13/21 12:36> Assessment and Plan: As above. Stopping Metoprolol due to hypotension. Unable to start on ARB at this time due to hypotension. <KARY Jensen - Last Filed: 11/13/21 12:36> (4) Alcohol withdrawal: Status: Acute <KARY Jensen - Last Filed: 11/13/21 12:36> Assessment and Plan: Being managed by customer logistics manager in the ICU <KARY Jensen Last Filed: 11/13/21 12:36> Time Spent With Patient Time: Total time spent is greater than 50% in coordination of care (as documented) at patient's floor/unit and/or counseling patient:20 <KARY Jensen Last Filed: 11/13/21 12:36> Progress Note: Quality Stroke Does the patient have a stroke diagnosis?: No <KARY Jensen Last Filed: 11/13/21 12:36> Procedures Date of Service Date of Service: 11/13/21 <KARY Jensen - Last Filed: 11/13/21 12:36>
[2021-11-13] MEDS: propofoL 1,000 MG/100 ML VIAL 26.94 MG IVCONT ×4 (12:27→22:43)
--- NOTE | 2021-11-13 12:55 | MHC.CM.PN ---
Addendum entered by Sima Higuera 11/13/21 15:44: Met with pt's mother/next of contact and his sister, Ruyb Bernstein in pt's room. Per family, pt has been a terrible alcoholic for many years. He recently walked off his job and has no income. Family is concerned that he will lose his apartment and become homeless and are requesting INPT ETOH treatment options. Discussed CARE team consult once pt is extubated and can participate in discussion. Pt has a vehicle - drove self to ED and has no care assistance at home. His sister states he recently obtained a PCP but is unsure who. She thinks it's a female provider in [place]: CM to research. Vax status unknown. Pt is scheduled for a cardioversion on 11/14. It is likely he will remain INPT over the weekend. Family will be away 11/14 - 11/15 but will return on 11/16 to visit pt. RUBBER CHEMIST aware of conversation. CM to follow. Original Note: Pt is intubated and sedated in ICU: Pt initially admitted with Afib but soon developed ETOH w/d. He was brought to ICU and intubated for management of w/d symptoms. Review of past admissions shows no HCP on file or any advanced directives. Call placed to pt's next of kin/contact, his mother Alondra who will be in today after he appointments to visit. Information regarding pt can be obtained at that time (pt's PCP, vax hx, services/assistance, transportation,etc) CM to follow.
--- NOTE | 2021-11-13 14:06 | MHC.CLN ---
PT IS INTUBATED AND SEDATED RECOMMEND JEVITY 1.0TF AT MAX GOAL RATE 50ML/HR AND 30ML PROSOURCE TID WITH 240CC FREE WATER FLUSHES Q 6HRS TO PROVIDE 1452KCALS (2163KCALS WITH SEDATION; 25KCALS/KG BASED ON CMW), 98G PROTEIN (1.15G/KG), 1962ML TOTAL WATER FORM FORMULA AND FLUSHES (23ML/KG) START FORMULA AT 20ML/HR AND INCREASE BY 10ML Q 4 HRS UNTIL MAX GOAL IS ACHIEVED MONITOR TOLERANCE, RESIDUALS AND LYTES SEE ALSO CLINICAL NUTRITION ASSESSMENT
[2021-11-13] MEDS: Digoxin 0.25 MG TABLET PO (14:09)
[2021-11-13] MEDS: Potassium Chloride Packet 20 MEQ PACKET 40 MEQ OG-TUBE ×2 (14:10→18:18)
[2021-11-13] MEDS: fentaNYL citrate/NS 1,000 MCG/100 ML PLAST..BAG 5 MCG IVCONT (15:27)
[2021-11-13 18:08] LABS: ABG Base Excess -1.5 mmol/L; ABG HCO3 22 mmol/L (22-26); ABG pCO2 35 mmHg (32-45); ABG pO2 92 mmHg (83-108)
--- NOTE | 2021-11-13 18:32 | PC.NURSE ---
AT APPROX 1730 PATIENT REPOSITIONED TO LEFT SIDE. PATIENT BEGAN TO DESAT TO 82-85%. WAS CURRENTLY ON FI02 OF 35%. IN-LINE SUCTIONED FOR SCANT, THICK, CREAM SECRETIONS. 02 DID NOT IMPROVE. RT CALLED BESIDE. FI02 INCREASED TO 80% BY RT. MD CALLED AND NOTIFIED. T/O FOR ABG TO BE DRAWN AT 1800. POST ABG FI02 ABLE TO BE DECREASED TO 60% BY RT. CXR ORDERED AND AWAITING RADIOLOGY. THROUGHOUT THE DAY PATIENT HAD MOMENTS OF BREAKTHROUGH SEDATION. SEE EMAR FOR TITRATIONS. FAMILY BEDSIDE TO VISIT. UPDATED BY THIS RN AND CASE MANAGEMENT.
[2021-11-13 18:44] LABS: ABG Refer to POC result
[2021-11-14] VITALS (37 sets, daily range): BP systolic 81–123; BP diastolic 46–91; PULSE 59–111; RESP 12–91; TEMP 33.7–38; O2SAT 92–99; BMI 32.2
[2021-11-14] MEDS: propofoL 1,000 MG/100 ML VIAL 26.94 MG IVCONT (01:10)
[2021-11-14 04:09] LABS: Hepatitis A Antibody IgM 0.15 Index (0-0.79); ~Hepatitis A Antibody IgM Nonreactive (Nonreactive)
[2021-11-14] MEDS: propofoL 1,000 MG/100 ML VIAL 23.95 MG IVCONT ×3 (04:34→23:33)
[2021-11-14] MEDS: fentaNYL citrate/NS 1,000 MCG/100 ML PLAST..BAG 5 MCG IVCONT (04:34)
--- NOTE | 2021-11-14 05:21 | PC.NURSE ---
Addendum entered by Kaveh Maguire RN 11/14/21 05:35: PA is aware of BPs and has been ok with map greater than 65 Original Note: initial contact: patient intubated 7.5 at 25. AC R14, v450, peep 14, 60% O2. Pt pupils perrl, does occasionally slightly move ext. pt is in afib low 100s with spikes to 120-130. pt has been hypotensive in the 80s-90s with map greater than goal of 65. Abd soft non-tender. Pt has iniguez with clear yellow output at a rate of 20-50/hr. Skin is intact. Pt is sedated on propofol at 40, and fentanyl at 50.
[2021-11-14 05:33] LABS: Hematocrit 41.4 % (42.0-52.0); Hemoglobin 13.4 g/dl (14.0-18.0); Mean Corpuscular HGB Conc 32.4 g/dl (31.0-36.0); Mean Corpuscular Hemoglobin 35.2 pg (27.0-33.0); Mean Corpuscular Volume 108.7 fL (80.0-98.0); Mean Platelet Volume 10.7 fL (9.4-12.4); Red Blood Count 3.81 X10*6/uL (4.60-5.80); Red Cell Distribution Width 13.9 % (11.0-16.0); White Blood Count 5.5 X10*3/uL (4.8-10.8)
[2021-11-14 05:41] LABS: Platelet Count 87 X10*3/uL (160-400)
[2021-11-14 05:42] LABS: Lactic Acid 0.8 mmol/L (0.5-2.0)
[2021-11-14 05:49] LABS: Anion Gap 12 (12-20); Blood Urea Nitrogen 15 mg/dL (9-16); Calcium 8.3 mg/dL (8.4-10.2); Carbon Dioxide 24 mmol/L (22-29); Chloride 108 mmol/L (96-108); Creatinine Clr Calc Pharmacy 113.3; Estimated Glomerular Filt Rate > 60; Glucose Random 101 mg/dL (60-115); Potassium 4.1 mmol/L (3.3-5.1); Sodium 140 mmol/L (135-145)
[2021-11-14 05:50] LABS: B Type Natriuretic Peptide 862 pg/mL (<100)
[2021-11-14 07:30] LABS: VBG Base Excess -1.5 mmol/L; VBG HCO3 22 mmol/L (22-26); VBG pCO2 34 mmHg; VBG pH 7.41 (7.32-7.43); VBG pO2 93 mmHg
[2021-11-14 08:38] LABS: Venous Blood Gas Refer to POC result
[2021-11-14] MEDS: 0.9 % Sodium Chloride Flush 3 ML SYRINGE IVFLUSH ×2 (08:56→14:59)
[2021-11-14] MEDS: chlordiazePOXIDE HCl 25 MG CAPSULE OG-TUBE ×2 (08:58→18:09)
[2021-11-14] MEDS: Digoxin 0.25 MG TABLET PO (08:58)
[2021-11-14] MEDS: Apixaban 5 MG TABLET PO ×2 (08:58→20:40)
[2021-11-14] MEDS: Multivitamin TABLET 1 TAB PO (08:58)
[2021-11-14] MEDS: Folic Acid 1 MG TABLET PO (08:58)
[2021-11-14] MEDS: Thiamine HCL 100 MG TABLET PO (08:58)
[2021-11-14] MEDS: Chlorhexidine Gluc Oral Rinse 15 ML MOUTHWASH BUCCAL ×3 (08:58→20:39)
--- NOTE | 2021-11-14 09:20 | P.CDIC_ITS ---
CDI Concurrent Query Documentation Clarification: PHYSICIAN'S DOCUMENTATION REQUEST Date of Query: 11/14/21919 Patient Name: Abner Galvan JR Admit Date: 11/11/21 Dear Doctor, A review of the medical record indicates additional documentation may be needed. Please review below and update the documentation accordingly. Clinical Indicators: Risk Factors/Clinical Indicators/Treatments PN: 11/12 - Worsening confusion, agitated, completely disoriented and needing a sitter. Altered mental status, pulling out IV. IV Phenobar and Ativan for alcohol withdrawal. ICU transfer, intubated. Based on the above, could you clarify in the Progress Notes which, if any of the following, is the most likely etiology of the confusion/altered mental status? * Encephalopathy - metabolic, toxic, alcoholic, etc. * Acute delirium * Acute or subacute confusional state due to (specify known or suspected etiology) * Other etiology (please specify) * Unable to determine Use of terms such as suspected, likely, concern for, or probable (associated with a specific diagnosis that is being evaluated, monitored, or treated as if it exists) are acceptable and can be coded in the inpatient setting, when documented at the time of discharge. Thank you, Roz Barriga [facility], CDIS Extension: [phone] Please use your independent medical judgment in providing your response. THIS QUERY IS PART OF THE PERMANENT MEDICAL RECORD Provider Response: Toxic Encephalopathy
[2021-11-14] MEDS: Digoxin 0.5 MG/2 ML AMPUL 0.25 MG IVPUSH (09:53)
[2021-11-14] MEDS: Furosemide 40 MG/4 ML VIAL IVPUSH (09:54)
--- NOTE | 2021-11-14 10:00 | CA_ITS ---
Transesophageal Echocardiogram Patient (Last, First, Middle): Abner Galvan, Gender: Male Date of : 1965 Age: 56 Procedure Date: 11/14/2021 Procedure Type: Transesophageal Echocardiogram Location: ICU Height: 172.72 cm Weight: kg Readiness Paraprofessional: MARIA LUZ Referring MD: Maximino Baker MD Cytogenetic Technician: Maximino Baker MD Symptoms: afib pre cardioversion Conclusion: ??? 1. No intracardiac thrombi, masses or vegetations. 2. Severely reduced LV ejection fraction with low stroke volume with LVEF of 10-15% 3. Mildly dilated right-sided chambers 4. No intracardiac shunting 5. Cardiac valvular Doppler within normal limits 6. Small pericardial effusion Findings Procedure Information Consent was obtained prior to the procedure. Pre CORTNEY oral cavity was checked and revealed no overcrowding. The adult 3D probe was passed with no difficulty. Left Ventricle Mildly increased left ventricular cavity size. The left ventricular systolic function is severely decreased. The visually estimated ejection fraction is between 10-15%. There is severe global hypokinesis. Diastolic function is indeterminate on the basis of available data. There is no evidence of a thrombus in the left ventricle. Overall forward stroke volume was very low as determined by LVOT VTI. Right Ventricle Mildly increased right ventricular cavity size. There is mildly decreased right ventricular systolic function. Atria The left atrium is likely dilated. There is no evidence of interatrial shunt. the left atrium was free of any significant thrombi. Mild smoke formation was seen. Left atrial appendage was identified in multiple views. The left atrial appendage was free of any thrombi. No significant smoke formation was seen. The left atrial appendage ejection velocity was reduced. The left upper, right upper and right lower pulmonary vein drain normally into the left atium. The right atrium is mildly dilated. right atrium showed modest smoke formation. Right atrial appendage has and file multiple views. No thrombus was seen in the right appendage. The IVC and SVC drain normally into the right atrium. The interatrial septum was intact. Aortic Valve Normal aortic valve structure and function. There is no aortic valve stenosis. There is no evidence of a mass on the aortic valve. There is no aortic valve regurgitation. Mitral Valve Normal mitral valve structure and function. There is trace mitral valve regurgitation. There is no mitral valve stenosis. There is no mass noted on the mitral valve. Pulmonic Valve The pulmonic valve is normal. There is trace pulmonic valve regurgitation. Tricuspid Valve Normal tricuspid valve structure. There is trace tricuspid valve regurgitation. There is no evidence of a mass on the tricuspid valve. Great Vessels All visible segments of the aorta are normal in size. The pulmonary artery was not well visualized. Venous The inferior vena cava is normal in size. Pericardium/Pleural There is a small circumferential pericardial effusion. Updated by Maximino Baker on 01:57 PM with Status of Final Maximino Baker MD electronically signed on 11/15/2021 1:57:00 PM with status of Final
--- NOTE | 2021-11-14 10:08 | MHC.CLN ---
F/U PT REMAINS INTUBATED AND SEDATED PT IS CURRENTLY NPO PENDING PROCEDURE WHEN TF TO RESUME; RECOMMEND PROMOTE TF AT MAX GOAL RATE 55ML/HR AND 30ML PROSOURCE BID WITH 300CC FREE WATER FLUSHES Q 8HRS TO PROVIDE 1440KCALS (2072KCALS WITH SEDATION; 24KCALS/KG BASED ON CMW), 112.5G PROTEIN (1.3G/KG), 2007ML TOTAL WATER FORM FORMULA AND FLUSHES (24ML/KG) START FORMULA AT 20ML/HR AND INCREASE BY 10ML Q 4 HRS UNTIL MAX GOAL IS ACHIEVED MONITOR TOLERANCE, RESIDUALS AND LYTES
--- NOTE | 2021-11-14 10:50 | PM.CCPN ---
Subjective Subjective Date of Service: 11/14/21 Interval History: Mr. Galvan was transferred to the ICU yesterday with florid RENZO and AFib with RVR. The patient is a 56 yo M with PMH of alcohol abuse.? [place] [facility] [place], alcoholic hepatitis with severe jaundice, and AFlutter with RVR.? He converted to SR spontaneously within 24 hrs.? Echo at that time was fairly normal, with EF 53% and normal IVC and right heart.? His jaundice and hepatitis improved w steroids.? He was discharged on diltiazem and a prednisone taper on hospital day#3. Was [place] [facility] [place] with atrial fibrillation with RVR, treated with Cardizem drip, digoxin and metoprolol, along with Eliquis. ?But he left AMA two days later, not taking any medications for rate control or anticoagulation. The patient was BIBA to the ED on November 11 complaining of 10 days of shortness of breath, orthopnea, PND, and swollen lower extremities.? The patient stated that his last drink was 2 days prior.? On arrival, heart rate was 170-210, Afib.? BNP was 1670.? BUN/creat 11/1.0.? Tbili 2.8 (was normal last month), mild transaminase elevation.? AG met acidosis attributed to alcohol.? CXR was clear.? Had JVD w rales on exam w pitting edema.? The patient was given diltiazem and Eliquis, Lasix, and metoprolol. The next morning (yesterday) started exhibiting signs of alcohol withdrawal.? Was started on oral phenobarbital protocol.? In the early afternoon, he went into florid RENZO and was brought to the ICU and intubated.? After intubation, and starting on a propofol drip and a dose of digoxin, the patient's heart rate slowed to 80s, atrial fibrillation, and he?s pretty much been steady at that heart rate since then, in atrial fibrillation.? His heart rate does go up to the 100s with stimulation. ECHOCARDIOGRAM November 12 showed normal LV wall thickness, mildly increased left ventricular cavity size, with severely decreased systolic function, severe global hypokinesis with EF 10-15%.? The RV was mildly increased in size with mildly decreased systolic function.? Both atria mildly dilated.? Trace mitral regurgitation.? Trace TR with normal pulmonary pressures.? IVC was mildly dilated with no inspiratory collapse. CXR taken last night bec of worsening hypoxemia showed new bilat pleural eff with low lung vols.? We increased his PEEP to 14cm. This morning, on my exam, he?s on propofol at 40 mcg, and fentanyl at 50 mcg.? Heart rate is 83, atrial fibrillation.? Blood pressure 89/66.? On assist control mode 14/450/50%/+14, respiratory rate is 14, Ve 6L, PIP 26cm, ETCo2 36, Sat 95%.? This morning's peripheral venous blood gas showed 7.41/34/-1. ?He?s been afebrile throughout.? No JVD, chest is clear w normal exp phase, heart rate and rhythm irregular, with normal-sounding S1 and S2, with no murmur or gallops.? Abdomen is benign, no liver, no peripheral edema. LABORATORY DATA:? Below.? Notably, white count is normal, BUN/creatinine stable, lactic acid is normal, BNP down to 860. IMPRESSION: 1. RENZO.? Continue propofol.? Started Librium on 11/12.? We?ll do a sedation holiday after the cardioversion. 2. Metabolic encephalopathy, 2? above. 3. Atrial fibrillation w RVR.? Adequately controlled now on just digoxin + control of his RENZO.? CORTNEY/cardioversion later today. 4. CMOP.? Rate related vs alcoholic.? May need ischemia w/u.? Given the new pleural effusions and worsened oxgenation, and in the face of normal renal indices, we?ll try diuresis. 5. Acute respiratory failure.? 2? uncontrolled RENZO. 6. ROXANA.? Resolved. 7. Alcoholic hepatitis.? Mild.? Stable.? Hepatitis screen positive only for HBsAb. 8. ID:? No evidence of any infection. 9. Nutrition:? Started on Jevity ADDENDUM:? 1220:? I assisted Dr. Baker with CORTNEY/cardioversion.? On CORTNEY, the LV is markedly dilated, EF still 10-15%.? Trace MR. ?No clots.? Gave fentanyl 100ug and propofol 30 mg (in addition to the drips) for the procedure.? Cardioverted into SR with one 200J countershock.? Now HR 66, SR.? BP 106/71. We?ll load him with oral amiodarone. Critical care time:? 75+ minutes. Critical Care Time (minutes): 75 Physical Exam Vital Signs: Vital Signs: Last Vital Signs Temp 99.3 F 11/14/21 10:00 Pulse 89 11/14/21 10:00 Resp 14 11/14/21 10:48 BP 106/64 11/14/21 10:00 Pulse Ox 97 11/14/21 10:00 BMI result Body Mass Index 32.2 Objective Data Labs CBC & Chem 7: 11/14/21 05:16 11/14/21 05:16 Labs: Laboratory Results - last 24 hr 11/13/21 11/13/21 11/14/21 05:33 18:00 05:13 WBC RBC Hgb Hct MCV MCH MCHC RDW Plt Count MPV Absolute Nucleated RBC Nucleated RBC % (auto) O2 Saturation 97.0 ABG pH at Pt Temp 7.40 ABG pCO2 at Pt Temp 35 ABG pO2 at Pt Temp 92 ABG HCO3 22 ABG Base Excess (Actual) -1.5 VBG pH 7.41 VBG pCO2 34 VBG pO2 93 VBG HCO3 22 VBG O2 Saturation 97.0 VBG Base Excess -1.5 Sodium Potassium Chloride Carbon Dioxide Anion Gap BUN Creatinine Estim Creat Clear Calc Estimated GFR Random Glucose Lactic Acid Calcium Magnesium B-Natriuretic Peptide Hepatitis A IgM Ab Nonreactive 11/14/21 11/14/21 11/14/21 05:16 05:16 05:16 WBC 5.5 RBC 3.81 L Hgb 13.4 L Hct 41.4 L MCV 108.7 H MCH 35.2 H MCHC 32.4 RDW 13.9 Plt Count 87 L MPV 10.7 Absolute Nucleated RBC 0.000 Nucleated RBC % (auto) 0.0 O2 Saturation ABG pH at Pt Temp ABG pCO2 at Pt Temp ABG pO2 at Pt Temp ABG HCO3 ABG Base Excess (Actual) VBG pH VBG pCO2 VBG pO2 VBG HCO3 VBG O2 Saturation VBG Base Excess Sodium 140 Potassium 4.1 Chloride 108 Carbon Dioxide 24 Anion Gap 12 BUN 15 Creatinine 0.89 Estim Creat Clear Calc 113.3 Estimated GFR > 60 Random Glucose 101 Lactic Acid Calcium 8.3 L Magnesium 2.0 B-Natriuretic Peptide 862 H Hepatitis A IgM Ab 11/14/21 05:16 WBC RBC Hgb Hct MCV MCH MCHC RDW Plt Count MPV Absolute Nucleated RBC Nucleated RBC % (auto) O2 Saturation ABG pH at Pt Temp ABG pCO2 at Pt Temp ABG pO2 at Pt Temp ABG HCO3 ABG Base Excess (Actual) VBG pH VBG pCO2 VBG pO2 VBG HCO3 VBG O2 Saturation VBG Base Excess Sodium Potassium Chloride Carbon Dioxide Anion Gap BUN Creatinine Estim Creat Clear Calc Estimated GFR Random Glucose Lactic Acid 0.8 Calcium Magnesium B-Natriuretic Peptide Hepatitis A IgM Ab Quality Stroke Does the patient have a stroke diagnosis?: No VTE Prior VTE?: No VTE Risk Level:: Medical - moderate - high VTE Device Contraindication: Treatment Not Indicated VTE Drug Contraindication: N/A - Med Ordered Critical Care Time Critical Care Time (minutes): 90
[2021-11-14] MEDS: fentaNYL citrate/PF 100 MCG/2 ML VIAL IVPUSH ×2 (10:59→16:08)
[2021-11-14] MEDS: propofoL 200 MG/20 ML VIAL 30 MG IVPUSH (11:12)
--- NOTE | 2021-11-14 11:16 | ECG_ITS ---
Test Reason : s/p cardioversion Blood Pressure : / mmHG Vent. Rate : 070 BPM Atrial Rate : 070 BPM P-R Int : 190 ms QRS Dur : 102 ms QT Int : 354 ms P-R-T Axes : 012 057 -71 degrees QTc Int : 382 ms Normal sinus rhythm Nonspecific ST and T wave abnormality Abnormal ECG When compared with ECG of 11-NOV-2021 03:51, Sinus rhythm has replaced Atrial fibrillation Vent. rate has decreased BY 99 BPM Nonspecific T wave abnormality, worse in Inferior leads Nonspecific T wave abnormality now evident in Anterior leads Referred By: Maximino Baker Electronically Signed By:MAXIMINO BAKER MD
--- NOTE | 2021-11-14 11:21 | HO.CARDIVERS ---
Cardioversion Procedure Note Cardioversion Date of Procedure: Today Ordering Provider: Today Performing Provider: Myself Indication for Procedure: Persistent atrial fibrillation with lower BP to improve hemodynamics Pre-Op Diagnosis: Same Post-Op Diagnosis: NSR Performed with Transesophageal Echo: Yes CORTNEY findings (if CORTNEY Performed): Dictated sperately History: See the notes Consent: Verbal and Written consent was obtained from the patient's mother as he was intubated before starting. She was made aware of the risk ofof synchroized cardioversion including benefits and alternatives Procedure: After consent obtained, cardioversion pads were attached in AP configuration and the patient was sedated by the anesthesia team. Once adequate sedation achieved, patient was delivered 200J of biphasic shock in AP configuration. Complications: None Impression: Successful conversion to NSR Recommendations: 1. 12 lead EKG 2. Start amiodarone loading 400 mg tid for 1 week 3. d/c digoxin 4. Continue OAC uninterrupted
[2021-11-14] MEDS: Amiodarone HCL 200 MG TABLET 400 MG OG-TUBE ×3 (11:37→20:39)
[2021-11-14] MEDS: propofoL 1,000 MG/100 ML VIAL 20.96 MG IVCONT (11:54)
--- NOTE | 2021-11-14 12:05 | PM.PNCARD ---
Subjective Subjective Date of Service: 11/14/21 Principal diagnosis: CHF, atrial fibrillation Interval history: Patient status post nik I did synchronized cardioversion. Blood pressure improved immediately post cardioversion by 10 mm. Patient remains intubated. Review of Systems Review of Systems Yes unobtainable due to endotracheal tube Physical Exam Vital Signs: Last Vital Signs Temp 99.1 F 11/14/21 12:00 Pulse 69 11/14/21 12:00 Resp 14 11/14/21 12:00 BP 111/76 11/14/21 12:00 Pulse Ox 97 11/14/21 12:00 BMI result Body Mass Index 32.2 Const General: other (Sedated on vent) Nutritional Appearance: overweight Neck Neck: Yes trachea midline, Yes supple and Yes no JVD Resp Effort & Inspection: normal respiratory effort Auscultation: clear to auscultation bilaterally Cardio Jugular venous distension: no JVD Rate: regular rate Rhythm: regular rhythm Heart sounds: S1 normal heart sound present, S2 normal heart sound present, no click, no gallops and no murmurs GI Auscultation: normal bowel sounds Extrem General: Yes no clubbing, cyanosis or edema Objective Labs and Meds Result diagrams: 11/14/21 05:16 11/14/21 05:16 Lab results: Laboratory Results - last 24 hr 11/13/21 11/13/21 11/14/21 05:33 18:00 05:13 WBC RBC Hgb Hct MCV MCH MCHC RDW Plt Count MPV Absolute Nucleated RBC Nucleated RBC % (auto) O2 Saturation 97.0 ABG pH at Pt Temp 7.40 ABG pCO2 at Pt Temp 35 ABG pO2 at Pt Temp 92 ABG HCO3 22 ABG Base Excess (Actual) -1.5 VBG pH 7.41 VBG pCO2 34 VBG pO2 93 VBG HCO3 22 VBG O2 Saturation 97.0 VBG Base Excess -1.5 Sodium Potassium Chloride Carbon Dioxide Anion Gap BUN Creatinine Estim Creat Clear Calc Estimated GFR Random Glucose Lactic Acid Calcium Magnesium B-Natriuretic Peptide Hepatitis A IgM Ab Nonreactive 11/14/21 11/14/21 11/14/21 05:16 05:16 05:16 WBC 5.5 RBC 3.81 L Hgb 13.4 L Hct 41.4 L MCV 108.7 H MCH 35.2 H MCHC 32.4 RDW 13.9 Plt Count 87 L MPV 10.7 Absolute Nucleated RBC 0.000 Nucleated RBC % (auto) 0.0 O2 Saturation ABG pH at Pt Temp ABG pCO2 at Pt Temp ABG pO2 at Pt Temp ABG HCO3 ABG Base Excess (Actual) VBG pH VBG pCO2 VBG pO2 VBG HCO3 VBG O2 Saturation VBG Base Excess Sodium 140 Potassium 4.1 Chloride 108 Carbon Dioxide 24 Anion Gap 12 BUN 15 Creatinine 0.89 Estim Creat Clear Calc 113.3 Estimated GFR > 60 Random Glucose 101 Lactic Acid Calcium 8.3 L Magnesium 2.0 B-Natriuretic Peptide 862 H Hepatitis A IgM Ab 11/14/21 05:16 WBC RBC Hgb Hct MCV MCH MCHC RDW Plt Count MPV Absolute Nucleated RBC Nucleated RBC % (auto) O2 Saturation ABG pH at Pt Temp ABG pCO2 at Pt Temp ABG pO2 at Pt Temp ABG HCO3 ABG Base Excess (Actual) VBG pH VBG pCO2 VBG pO2 VBG HCO3 VBG O2 Saturation VBG Base Excess Sodium Potassium Chloride Carbon Dioxide Anion Gap BUN Creatinine Estim Creat Clear Calc Estimated GFR Random Glucose Lactic Acid 0.8 Calcium Magnesium B-Natriuretic Peptide Hepatitis A IgM Ab Imaging Radiologist's impression: Impressions Chest X-Ray 11/13/21 18:41 IMPRESSION: ET tube in good position 3.2 cm above sonya. Bilateral basilar opacities. This appears to be increasing on left. I suspect fluid on the left with likely adjacent atelectasis infiltrate or edema. There is also increased vascular congestion on this study. Early CHF needs to be considered At the right base persistent density which may represent atelectasis infiltrate or edema and some likely fluid as well Progress Note: A&P Assessment and plan (1) Cardiomyopathy: Status: Acute Assessment and Plan: Severe LV systolic dysfunction most likely tachycardia mediated also could be alcoholic. He has low cardiac output syndrome. Status post cardioversion to attain AV synchrony with immediate improvement in his blood pressure. He does not appear significantly fluid overloaded, see below avoid diuresis as his central veins appear to collapse despite positive-pressure ventilation. Given his lower blood pressure cannot maximize his neurohormonal modulation at this point time. Hold off on all medications till he is extubated. Continue treat his alcohol withdrawal as per the critical care team. (2) Atrial fibrillation with RVR: Status: Acute Assessment and Plan: Atrial fibrillation status post cardioversion. Maintaining rhythm with improvement in his blood pressure. Will continue to pursue rhythm control approach aggressively. Loading with amiodarone 400 mg t.i.d. for 1 week followed by 400 mg daily for 1 week and then 200 mg daily. Eventually will try to get him of the amiodarone once his LV ejection fraction improves, which I expect to. Complete cessation of alcohol was discussed. Importance of compliance with medication needs to be pursued once he is extubated and educated. Continue uninterrupted oral anticoagulation to reduce stroke risk. Daily EKGs. Avoid QT prolonging drugs (3) Acute congestive heart failure: Status: Acute Assessment and Plan: Acute congestive heart failure presentation due to severe cardiomyopathy and uncontrolled atrial fibrillation. Currently heart failure appears to be improved with diuresis and better rate control. Avoid diuretics IV to avoid hypotension. Will continue to follow with you. Time Spent With Patient Time: Total time spent is greater than 50% in coordination of care (as documented) at patient's floor/unit and/or counseling patient: Progress Note: Quality Stroke Does the patient have a stroke diagnosis?: No Procedures Date of Service Date of Service: 11/14/21
--- NOTE | 2021-11-14 12:08 | PC.NURSE ---
Addendum entered by Jimena Fisher RN 11/14/21 18:48: MAP GOAL > 60 PER MD. COMMUNICATION ORDER ADDED. Addendum entered by Jimena Fisher RN 11/14/21 16:26: SEDATION VACATION ATTEMPT AT 1508. RT CALLED AND VENT SETTINGS CHANGED TO PS 10/14 ON 50%. AT 1600 PATIENT STARTED COUGHING AND A LARGE AMOUNT OF PINK, FROTHY INLINE SECRETIONS NOTED. MD AND RT CALLED TO THE BEDSIDE. CORE TEMP INCREASED TO 100.6. PER MD SEDATION VACATION WAS OVER AND PATIENT RESTARTED ON PROPOFOL AND FENTANYL - SEE EMAR. VENT SETTINGS CHANGED BACK TO AC 12/450/14/50% WHILE ON SEDATION VACATION PATIENT TRACKED, FOLLOWED SIMPLE COMMANDS, AND WOULD NOD YES OR NO. PATIENTS MOTHER CALLED MID AFTERNOON AND UPDATED BY THIS RN. Original Note: SCHEDULED BEDSIDE CORTNEY AND CARDIOVERSION PERFORMED. FREDDY AND ADMINISTERED 100 MCG OFF THE LINE AT 1059 PRIOR TO START OF CORTNEY. FREDDY AND ADMINISTERED 30 MCG OFF THE LINE AT 1112 PRIOR TO START OF CARDIOVERSION. SHOCK 200J X 1 AT 1113. RHYTHM CHANGED FROM AFIB TO SR - SUCCESSFUL. EKG ORDERED AND PERFORMED BY CLAIM ANALYST. AMIODARONE HCL 400 MG ADMINISTERED ORDERED AT 1137. SBP > 100 POST CARDIOVERSION.
[2021-11-14] MEDS: Valsartan 40 MG TABLET 20 MG PO (18:09)
[2021-11-14] MEDS: propofoL 1,000 MG/100 ML VIAL 17.96 MG IVCONT (18:09)
[2021-11-15] VITALS (33 sets, daily range): BP systolic 90–125; BP diastolic 56–82; PULSE 57–89; RESP 8–21; TEMP 33.7–38.1; O2SAT 93–99; BMI 31.2
[2021-11-15] MEDS: 0.9 % Sodium Chloride Flush 3 ML SYRINGE IVFLUSH ×3 (00:44→15:09)
[2021-11-15] MEDS: fentaNYL citrate/NS 1,000 MCG/100 ML PLAST..BAG 10 MCG IVCONT (02:12)
[2021-11-15] MEDS: propofoL 1,000 MG/100 ML VIAL 23.95 MG IVCONT (03:15)
[2021-11-15] MEDS: chlordiazePOXIDE HCl 25 MG CAPSULE OG-TUBE ×3 (03:25→22:07)
[2021-11-15 05:23] LABS: MANUAL DIFF FLAG NO
[2021-11-15 05:32] LABS: VBG Base Excess 4.3 mmol/L; VBG HCO3 28 mmol/L (22-26); VBG pCO2 41 mmHg; VBG pH 7.44 (7.32-7.43); VBG pO2 65 mmHg
[2021-11-15 05:34] LABS: Hemoglobin 13.1 g/dl (14.0-18.0); PLT CLUMP 1; Red Cell Distribution Width 13.6 % (11.0-16.0); SCAN SMEAR FLAG 1
[2021-11-15 05:36] LABS: Basophils Percent Auto 0.5 % (0-2); Eosinophils Absolute Auto 0.2 X10*3/uL (0.0-0.4); Eosinophils Percent Auto 2.7 % (0-4); Imm Gran Abs Auto 0.04 X10*3/uL (0.00-0.03); Imm Gran Pct Auto 0.7 % (0.0-0.4); Lymphocytes Percent Auto 18.2 % (20-40); Mean Corpuscular HGB Conc 32.8 g/dl (31.0-36.0); Mean Corpuscular Hemoglobin 35.5 pg (27.0-33.0); Mean Corpuscular Volume 108.4 fL (80.0-98.0); Monocytes Absolute Auto 0.7 X10*3/uL (0.1-1.2); Neutrophils Absolute Auto 3.6 x10*3/uL (2.0-8.3); Neutrophils Percent Auto 64.9 % (45-73); Red Blood Count 3.69 X10*6/uL (4.60-5.80)
[2021-11-15 05:48] LABS: Venous Blood Gas Refer to POC result
[2021-11-15 05:50] LABS: Anion Gap 13 (12-20); Blood Urea Nitrogen 10 mg/dL (9-16); Calcium 8.3 mg/dL (8.4-10.2); Carbon Dioxide 26 mmol/L (22-29); Chloride 102 mmol/L (96-108); Creatinine Clr Calc Pharmacy 127.9; Estimated Glomerular Filt Rate > 60; Glucose Random 117 mg/dL (60-115); Magnesium 1.7 mg/dL (1.6-2.6); Phosphorus 3.3 mg/dL (2.7-4.5); Potassium 3.6 mmol/L (3.3-5.1); Sodium 137 mmol/L (135-145)
[2021-11-15 05:57] LABS: Platelet Count 95 X10*3/uL (160-400); White Blood Count 5.5 X10*3/uL (4.8-10.8)
[2021-11-15] MEDS: propofoL 1,000 MG/100 ML VIAL 17.96 MG IVCONT (07:26)
[2021-11-15] MEDS: Chlorhexidine Gluc Oral Rinse 15 ML MOUTHWASH BUCCAL (08:17)
[2021-11-15] MEDS: Valsartan 40 MG TABLET 20 MG PO (08:17)
[2021-11-15] MEDS: Amiodarone HCL 200 MG TABLET 400 MG OG-TUBE ×3 (08:17→22:17)
[2021-11-15] MEDS: Apixaban 5 MG TABLET PO ×2 (08:18→22:07)
[2021-11-15] MEDS: Magnesium Sulfate/H2O 2 GM/50 ML PIGGYBACK IV (08:48)
[2021-11-15] MEDS: Furosemide 40 MG/4 ML VIAL IVPUSH (08:48)
--- NOTE | 2021-11-15 12:40 | P.PNCA_ITS ---
Subjective Subjective Date of Service: 11/15/21 Principal diagnosis: CHF, atrial fibrillation Interval history: Patient remains in sinus rhythm. Plan for extubation today. Blood pressure is systolic 90 to 100s. Yesterday developed some respiratory distress and being frothy sputum. Was given diuresis. This morning given another Lasix. Has been diuresing well. Responding to verbal cues Review of Systems Review of Systems Yes unobtainable due to endotracheal tube Physical Exam Vital Signs: Last Vital Signs Temp 99.3 F 11/15/21 12:00 Pulse 61 11/15/21 12:00 Resp 11 L 11/15/21 12:00 BP 91/56 L 11/15/21 12:00 Pulse Ox 93 11/15/21 12:00 BMI result Body Mass Index 31.2 Const General: lethargic and other (Intubated on mechanical ventilation) Orientation/consciousness: lethargic Neck Neck: Yes trachea midline, Yes supple and Yes no JVD Resp Effort & Inspection: normal respiratory effort Auscultation: no rales, no wheezes and diminished lung sounds Cardio Palpation: abnormal PMI displaced PMI Rate: regular rate Rhythm: regular rhythm Heart sounds: S1 normal heart sound present, S2 normal heart sound present, no click, no gallops, no murmurs and no rubs GI Auscultation: normal bowel sounds Neuro General: moves all extremities Extrem General: Yes no clubbing, cyanosis or edema Objective Labs and Meds Result diagrams: 11/15/21 05:17 11/15/21 05:17 Lab results: Laboratory Results - last 24 hr 11/15/21 11/15/21 11/15/21 05:17 05:17 05:22 WBC 5.5 RBC 3.69 L Hgb 13.1 L Hct 40.0 L MCV 108.4 H MCH 35.5 H MCHC 32.8 RDW 13.6 Plt Count 95 L MPV 11.0 Immature Gran % (Auto) 0.7 H Neut % (Auto) 64.9 Lymph % (Auto) 18.2 L Tompkins % (Auto) 13.0 H Eos % (Auto) 2.7 Baso % (Auto) 0.5 Lymph # (Auto) 1.0 L Tompkins # (Auto) 0.7 Eos # (Auto) 0.2 Baso # (Auto) 0.0 Abs Immat Gran (auto) 0.04 H Absolute Neuts (auto) 3.6 Absolute Nucleated RBC 0.000 Nucleated RBC % (auto) 0.0 VBG pH 7.44 H VBG pCO2 41 VBG pO2 65 VBG HCO3 28 H VBG O2 Saturation 90.0 VBG Base Excess 4.3 Sodium 137 Potassium 3.6 Chloride 102 Carbon Dioxide 26 Anion Gap 13 BUN 10 Creatinine 0.79 Estim Creat Clear Calc 127.9 Estimated GFR > 60 Random Glucose 117 H Calcium 8.3 L Phosphorus 3.3 Magnesium 1.7 Imaging Radiologist's impression: Impressions Chest X-Ray 11/15/21 08:50 IMPRESSION: -Support apparatus in expected position. -Hypoinflated lungs without acute pulmonary pathology. Progress Note: A&P Assessment and plan (1) Atrial fibrillation with RVR: Status: Acute Assessment and Plan: Atrial fibrillation rapid ventricular response partly secondary to significant alcohol withdrawal. Currently status post CORTNEY guided cardioversion maintaining rhythm. Continue amiodarone loading with 400 mg t.i.d. for total of 1 week followed by 400 mg daily for 1 week followed by 200 mg daily. Continue full oral anticoagulation as prescribed. Continue treat his alcohol withdrawal. In future more education regarding alcohol intoxication needs to be provided to the patient. Daily EKGs (2) Cardiomyopathy: Status: Acute Assessment and Plan: Severe cardiomyopathy question could be tachycardia mediated and possibly also related to alcohol. Developed heart failure off positive mechanical ventilation yesterday. Today doing much better in terms of fluid status. Plan for extubation today. Gently uptitrate neurohormonal modulation with valsartan. Daily standard dose of Lasix 40 mg IV. Will hold off on metoprolol therapy given that his heart rate is control is currently on amiodarone therapy, but however eventually will need to add neurohormonal modulation with beta-blockers. Will wait for 1 day to 2 in terms of see how his blood pressure response. Will continue to follow with you Time Spent With Patient Time: Total time spent is greater than 50% in coordination of care (as documented) at patient's floor/unit and/or counseling patient: Progress Note: Quality Stroke Does the patient have a stroke diagnosis?: No Procedures Date of Service Date of Service: 11/15/21
--- NOTE | 2021-11-15 13:06 | PM.CCPN ---
Subjective Subjective Date of Service: 11/15/21 Interval History: Mr. Galvan was transferred to the ICU November 12 with florid RENZO, AFib with RVR, and acute respiratory failure. The patient is a 56 yo M with PMH of alcohol abuse.? Was admitted to [facility] [place] last January for alcohol withdrawal, alcoholic hepatitis with severe jaundice, and AFlutter with RVR.? He converted to SR spontaneously within 24 hrs.? Echo at that time was fairly normal, with EF 53% and normal IVC and right heart.? His jaundice and hepatitis improved w steroids.? He was discharged on diltiazem and a prednisone taper on hospital day# 3. Was admitted to [facility] [place] last month with atrial fibrillation with RVR, treated with Cardizem drip, digoxin and metoprolol, along with Eliquis. ?He left AMA two days later, not taking any medications for rate control or anticoagulation. HISTORY OF PRESENT ILLNESS: ?The patient was BIBA to the ED on November 11 complaining of 10 days of shortness of breath, orthopnea, PND, and swollen lower extremities.? The patient stated that his last drink was 2 days prior.? On arrival, heart rate was 170-210, Afib.? BNP was 1670.? BUN/creat 11/1.0.? Tbili 2.8 (was normal last month), mild transaminase elevation.? AG met acidosis attributed to alcohol.? CXR was clear.? Had JVD w rales on exam w pitting edema.? The patient was given diltiazem and Eliquis, Lasix, and metoprolol. The next morning (yesterday) started exhibiting signs of alcohol withdrawal.? Was started on oral phenobarbital protocol.? In the early afternoon, he went into florid RENZO and was brought to the ICU and intubated.? After intubation, and starting on a propofol drip and a dose of digoxin, the patient's heart rate slowed to 80s, atrial fibrillation, and he was steady at that heart rate, in atrial fibrillation. ECHOCARDIOGRAM later that day showed a dilated CMOP, with severely decreased systolic function, severe global hypokinesis, with EF 10-15%.? The RV was mildly increased in size with mildly decreased systolic function.? Both atria mildly dilated.? Trace mitral regurgitation.? Trace TR with normal pulmonary pressures.? IVC was mildly dilated with no inspiratory collapse. Mult CXRs since then bec of recurrent hypoxemia have shown low lung vols, despite PEEP levels 10-14cm.? We increased his PEEP to 14cm over last 48 hrs.? Yesterday we did a CORTNEY which still showed severe CMOP, EF 10-15%, then cardioverted him into SR, and started loading him w oral amiodarone.? Later we gave him a propofol holiday.? He woke up and was reasonably calm, but his blood pressure went up into the 120s, and he went into flash pulmonary edema, with pink froth coming out of his endotracheal tube.? We therefore resedated him, and started him on valsartan.? I?ve been giving him Lasix 40mg IV daily. The propofol was turned off about half an hour ago.? On my exam, he?s fully awake, calm, and appropriately responsive.? Heart rate is 69, SR, BP is 105/68.? On PSV 10/40%/+10, RR is 12, Vt 450cc, Ve 6L, PIP 20cm, ETCO2 32, Sat 99%.? This morning's peripheral venous blood gas showed 7.44/41/+4. ?He?s been afebrile throughout.? No JVD, chest is clear w normal exp phase, heart rate and rhythm regular, with normal-sounding S1 and S2, with no murmur or gallops.? Abdomen is benign, no liver, no peripheral edema. We extubated him to HFNC 60L/40%.? Breathing easy with Sat 98%. LABORATORY DATA:? Below.? Notably, plat count down to 95, BUN/creatinine down to 10/0.7. Follow-up CXR this morning still shows low lung volumes, and shows loss of the left hemidiaphragm, which I suspect is a left lower lobe collapse, at least partially. IMPRESSION: 1. RENZO.? Successfully extubated.? Decrease Librium to 25 mg bid. 2. Metabolic encephalopathy, 2? above. 3. Atrial fibrillation w RVR.? Back in sinus rhythm after cardioversion.? We?ll continue with daily digoxin, and oral amiodarone loading over 7 days. 4. CMOP.? Rate related vs alcoholic.? Continue Lasix 40 mg IV daily as long as his renal indices stay low.? Increase valsartan to 40 mg bid. 5. Acute respiratory failure.? 2? uncontrolled RENZO.? Resolved.? Later this afternoon we?ll do chest CP and get him coughing to see if that can be re-expanded.? Might need a bronchoscopy. 6. ROXANA. ?Resolved. 7. Alcoholic hepatitis.? Mild.? Stable.? Hepatitis screen positive only for HBsAb. 8. ID:? No evidence of any infection. 9. Nutrition:? Start po?s later today or tomorrow.? Low-sodium diet. Critical Care Time (minutes): 0 Physical Exam Vital Signs: Vital Signs: Last Vital Signs Temp 99.3 F 11/15/21 12:00 Pulse 61 11/15/21 12:00 Resp 18 11/15/21 12:58 BP 91/56 L 11/15/21 12:00 Pulse Ox 93 11/15/21 12:00 BMI result Body Mass Index 31.2 Objective Data Labs CBC & Chem 7: 11/15/21 05:17 11/15/21 05:17 Labs: Laboratory Results - last 24 hr 11/15/21 11/15/21 11/15/21 05:17 05:17 05:22 WBC 5.5 RBC 3.69 L Hgb 13.1 L Hct 40.0 L MCV 108.4 H MCH 35.5 H MCHC 32.8 RDW 13.6 Plt Count 95 L MPV 11.0 Immature Gran % (Auto) 0.7 H Neut % (Auto) 64.9 Lymph % (Auto) 18.2 L [place] % (Auto) 13.0 H Eos % (Auto) 2.7 Baso % (Auto) 0.5 Lymph # (Auto) 1.0 L [place] # (Auto) 0.7 Eos # (Auto) 0.2 Baso # (Auto) 0.0 Abs Immat Gran (auto) 0.04 H Absolute Neuts (auto) 3.6 Absolute Nucleated RBC 0.000 Nucleated RBC % (auto) 0.0 VBG pH 7.44 H VBG pCO2 41 VBG pO2 65 VBG HCO3 28 H VBG O2 Saturation 90.0 VBG Base Excess 4.3 Sodium 137 Potassium 3.6 Chloride 102 Carbon Dioxide 26 Anion Gap 13 BUN 10 Creatinine 0.79 Estim Creat Clear Calc 127.9 Estimated GFR > 60 Random Glucose 117 H Calcium 8.3 L Phosphorus 3.3 Magnesium 1.7 Quality Stroke Does the patient have a stroke diagnosis?: No VTE Prior VTE?: No VTE Risk Level:: Medical - moderate - high VTE Device Contraindication: Treatment Not Indicated VTE Drug Contraindication: N/A - Med Ordered
[2021-11-15] MEDS: Potassium Chloride/H20 10 MEQ/100 ML PIGGYBACK 100 MEQ IV ×4 (14:04→17:15)
--- NOTE | 2021-11-15 15:28 | P.HPCC_ITS ---
History of Present Illness Date of Service: 11/15/21 Attending physician on admission: Nikolas Hastings Chief Complaint: Severe hypernatremia and dehydration. Mr. Gordon is being admitted to the ICU bec of severe hypernatremia, severe dehydration, and possible seizures. [facility] Past Medical History Medical History Alcohol dependence with withdrawal Alcoholic hepatitis Atrial fibrillation with rapid ventricular response HTN (hypertension) Family History Family History Father CAD (coronary artery disease) Surgical History Surgical History No pertinent past surgical history Social History Social History Household Members: Unknown / Unable to assess Housing: Unknown / Unable to assess Do you presently have visiting nurse or other home services: No Unable to assess alcohol history related to: Unable to respond Alcohol intake: current Alcohol intake frequency: a few times a week Alcohol type: wine Patient Tobacco Use Status: Never used Tobacco service: No Current occupational status: unemployed Meds Allergies Allergy/AdvReac Type Severity Reaction Status Date / Time No Known Allergies Allergy Verified 01/09/21 12:30 [No Known Allergies*] Active Medications: Current Medications Amiodarone HCl (Amiodarone Hcl 200 Mg Tablet) 400 mg OG-TUBE TID [facility] Last Admin: 11/15/21 14:04 Dose: 400 mg Documented by: Apixaban (Apixaban 5 Mg Tablet) 5 mg PO BID [facility] Last Admin: 11/15/21 08:18 Dose: 5 mg Documented by: Chlordiazepoxide HCl (Chlordiazepoxide Hcl 25 Mg Capsule) 25 mg OG-TUBE BID [facility] Fentanyl (Fentanyl Citrate/Pf 100 Mcg/2 Ml Vial) 50 mcg IVPUSH Q5M PRN; Protoc ol PRN Reason: pain or WOB Furosemide (Furosemide 40 Mg/4 Ml Vial) 40 mg IVPUSH DAILY EDWIN; Protocol Furosemide (Furosemide 20 Mg/2 Ml Vial) 20 mg IVPUSH ONCE ONE; Protocol Stop: 11/15/21 20:01 Glycopyrrolate (Glycopyrrolate 0.2 Mg/Ml Vial) 0.1 mg IVPUSH Q6H PRN PRN Reason: Secretions Potassium Chloride () 10 meq in 100 mls @ 100 mls/hr IV Q1H EDWIN Stop: 11/15/21 17:29 Last Admin: 11/15/21 15:08 Dose: 100 mls/hr Documented by: Pharmacy Consult (Consult Rx Perform Med Rec) 1 each MISCELLANE ONCE PRN PRN Reason: Consult order Pharmacy Consult (Consult Rx Etoh Phenob Po Dose) 1 each MISCELLANE ONCE PRN; Protocol PRN Reason: Consult order Potassium Chloride (Potassium Chloride Packet 20 Meq Packet) 40 meq PO ONCE ONE Stop: 11/15/21 20:01 Sodium Chloride (0.9 % Sodium Chloride Flush 3 Ml Syringe) 3 ml IVFLUSH QSHIFT [facility] Last Admin: 11/15/21 15:09 Dose: 3 ml Documented by: Valsartan (Valsartan 40 Mg Tablet) 40 mg PO BID EDWIN; Protocol Home Medications Medication Instructions Recorded Confirmed Last Taken Type ascorbic acid 1,000 1 ea PO DAILY 01/09/21 11/11/21 11/09/21 History uq-tkutwmfqbeew-pgythztb powder 1 effervescent pack (Emergen-C) Physical Exam Vital Signs: Vital Signs: Last Vital Signs Temp 100.6 F H 11/15/21 15:00 Pulse 77 11/15/21 15:00 Resp 16 11/15/21 15:06 BP 112/73 11/15/21 15:00 Pulse Ox 96 11/15/21 15:00 BMI result Body Mass Index 31.2 Results Labs CBC and Chem 7: 11/15/21 05:17 11/15/21 05:17 Labs: Laboratory Results - last 24 hr 11/15/21 11/15/21 11/15/21 05:17 05:17 05:22 MCV 108.4 H MCH 35.5 H MCHC 32.8 RDW 13.6 Plt Count 95 L MPV 11.0 Immature Gran % (Auto) 0.7 H Neut % (Auto) 64.9 Lymph % (Auto) 18.2 L [place] % (Auto) 13.0 H Eos % (Auto) 2.7 Baso % (Auto) 0.5 Lymph # (Auto) 1.0 L [place] # (Auto) 0.7 Eos # (Auto) 0.2 Baso # (Auto) 0.0 Abs Immat Gran (auto) 0.04 H Absolute Neuts (auto) 3.6 Absolute Nucleated RBC 0.000 Nucleated RBC % (auto) 0.0 VBG pH 7.44 H VBG pCO2 41 VBG pO2 65 VBG HCO3 28 H VBG O2 Saturation 90.0 VBG Base Excess 4.3 Anion Gap 13 Estim Creat Clear Calc 127.9 Estimated GFR > 60 Random Glucose 117 H Calcium 8.3 L Phosphorus 3.3 Magnesium 1.7 Imaging Radiologist's Impressions: Impressions Chest X-Ray 11/15/21 08:50 IMPRESSION: -Support apparatus in expected position. -Hypoinflated lungs without acute pulmonary pathology.
[2021-11-15] MEDS: Valsartan 40 MG TABLET PO ×2 (16:14→22:07)
[2021-11-15] MEDS: Potassium Chloride Packet 20 MEQ PACKET 40 MEQ PO (19:09)
[2021-11-15] MEDS: Furosemide 20 MG/2 ML VIAL IVPUSH (19:09)
[2021-11-16] VITALS (16 sets, daily range): BP systolic 89–123; BP diastolic 46–81; PULSE 60–96; RESP 10–24; TEMP 36.6–37.6; O2SAT 90–100; BMI 30.4
[2021-11-16] MEDS: 0.9 % Sodium Chloride Flush 3 ML SYRINGE IVFLUSH ×3 (01:27→14:32)
[2021-11-16 05:40] LABS: B Type Natriuretic Peptide 801 pg/mL (<100)
[2021-11-16 05:48] LABS: Anion Gap 12 (12-20); Blood Urea Nitrogen 9 mg/dL (9-16); Calcium 8.5 mg/dL (8.4-10.2); Carbon Dioxide 29 mmol/L (22-29); Chloride 100 mmol/L (96-108); Creatinine Clr Calc Pharmacy 121.4; Estimated Glomerular Filt Rate > 60; Glucose Random 142 mg/dL (60-115); Phosphorus 2.4 mg/dL (2.7-4.5); Potassium 3.6 mmol/L (3.3-5.1); Sodium 137 mmol/L (135-145)
[2021-11-16] MEDS: Furosemide 40 MG/4 ML VIAL IVPUSH (08:03)
[2021-11-16] MEDS: chlordiazePOXIDE HCl 25 MG CAPSULE OG-TUBE (08:03)
[2021-11-16] MEDS: Valsartan 40 MG TABLET PO ×2 (08:04→21:52)
[2021-11-16] MEDS: Amiodarone HCL 200 MG TABLET 400 MG OG-TUBE ×3 (08:05→21:50)
--- NOTE | 2021-11-16 08:43 | PC.NURSE ---
Late entry for 11/15/21 at 1815 Okay per patient to give telephone updates to sister Lucy and mother. Patient requesting no visits from family. Patient A&Ox3. aware
[2021-11-16] MEDS: Apixaban 5 MG TABLET PO ×2 (09:37→21:50)
[2021-11-16] MEDS: Metoprolol Tartrate 12.5 MG HALFTAB PO ×2 (10:38→21:52)
--- NOTE | 2021-11-16 12:06 | PM.CCPN ---
Subjective Subjective Date of Service: 11/16/21 Interval History: Mr. Galvan was transferred to the ICU November 12 with florid RENZO, AFib with RVR, and acute respiratory failure. The patient is a 56 yo M with PMH of alcohol abuse.? Was [place] to [facility] [place] for alcohol withdrawal, alcoholic hepatitis with severe jaundice, and AFlutter with RVR.? He converted to SR spontaneously within 24 hrs.? Echo at that time was fairly normal, with EF 53% and normal IVC and right heart.? His jaundice and hepatitis improved w steroids.? He was discharged on diltiazem and a prednisone taper on hospital day# 3. Was admitted to [facility] [place] last month with atrial fibrillation with RVR, treated with Cardizem drip, digoxin and metoprolol, along with Eliquis. ?He left AMA two days later, not taking any medications for rate control or anticoagulation. HISTORY OF PRESENT ILLNESS:? The patient was BIBA to the ED on November 11 complaining of 10 days of shortness of breath, orthopnea, PND, and swollen lower extremities.? The patient stated that his last drink was 2 days prior.? On arrival, heart rate was 170-210, Afib.? BNP was 1670.? BUN/creat 11/1.0.? Tbili 2.8 (was normal last month), mild transaminase elevation.? AG met acidosis attributed to alcohol.? CXR was clear.? Had JVD w rales on exam w pitting edema.? The patient was given diltiazem and Eliquis, Lasix, and metoprolol. The next morning started exhibiting signs of alcohol withdrawal.? Was started on oral phenobarbital protocol.? In the early afternoon, he went into florid RENZO and was brought to the ICU and intubated.? After intubation, and starting on a propofol drip and a dose of digoxin, the patient's heart rate slowed to 80s, atrial fibrillation, and he was steady at that heart rate, in atrial fibrillation. ECHOCARDIOGRAM later that day showed a dilated CMOP, with severely decreased systolic function, severe global hypokinesis, with EF 10-15%.? The RV was mildly increased in size with mildly decreased systolic function.? Both atria mildly dilated.? Trace mitral regurgitation.? Trace TR with normal pulmonary pressures.? IVC was mildly dilated with no inspiratory collapse. Mult CXRs since then bec of recurrent hypoxemia have shown low lung vols, despite PEEP levels 10-14cm.? On November 14 underwent CORTNEY/cardioversion.? The CORTNEY still showed severe CMOP, EF 10-15%.? He was cardioverted successfully into SR, and started on oral loading of amiodarone.? Later that day, during a propofol holiday, his blood pressure flavia into the 120s, and he went into flash pulmonary edema, with pink froth coming out of his endotracheal tube.? He was resedated and started on valsartan and Lasix.? He was extubated yesterday without incident.? Throughout the day he was mildly disoriented, but calm.? He remains on Librium 25 mg bid. Last night we did an ?elective? chest CT to see why he had low lung volumes, and r/o a hiatus hernia.? The chest CT showed only bibasilar atelectasis, with no HH. This morning during a bowel movement, he went back into Afib, with a controlled rate, in the 85-100 range.? He?s fully awake, calm, and appropriately responsive, although his mental processing is slow.? Wants to know when he can go home.? Heart rate is 100, afib.? BP is 94/64.? On 1L NC, breathing very easy w Sat 92%.? Gave him an incent spirometer this morning.? Tmax 100.6, which was yest afternoon.? No JVD, chest is mostly clear, maybe a hint of tubular sounds at the right base.? Normal exp phase.? Very soft heart tones, no murmur or gallops appreciated.? Abdomen is benign, no liver, no peripheral edema. LABORATORY DATA:? Below.? Notably, renal indices still low, phosphorus 2.4, BNP slightly down to 801. IMPRESSION: 1. RENZO.? Successfully extubated.? Very calm.? D/c Librium. 2. Metabolic encephalopathy, 2? above.? Resolving. 3. Atrial fibrillation w RVR.? Back in Afib after cardioversion.? We?ll continue with daily digoxin, and oral amiodarone loading over 7 days.? Added metoprolol 12.5mg bid.? Continue Eliquis. 4. CMOP.? Rate related vs alcoholic.? Continue Lasix 40 mg po daily as long as his renal indices stay low.? Continue valsartan 40 mg bid. 5. Acute respiratory failure.? 2? uncontrolled RENZO.? Resolved.? Bibasilar altelectasis.? Continue IS. 6. ROXANA.? Resolved. 7. Alcoholic hepatitis.? Mild.? Stable.? Hepatitis screen positive only for HBsAb. 8. Metabolic:? Low-potassium, low phosphorus.? Replete. 9. ID:? No evidence of any infection. 9. Nutrition:? On a low-sodium diet. Ambulate as tolerated. Stable for transfer to [facility] [place].? Will sign out to hospitalists. Critical Care Time (minutes): 0 Physical Exam Vital Signs: Vital Signs: Last Vital Signs Temp 98.3 F 11/16/21 12:00 Pulse 94 11/16/21 12:00 Resp 16 11/16/21 12:00 BP 109/58 L 11/16/21 12:00 Pulse Ox 92 11/16/21 12:00 BMI result Body Mass Index 30.4 Objective Data Labs CBC & Chem 7: 11/15/21 05:17 11/16/21 05:10 Labs: Laboratory Results - last 24 hr 11/16/21 11/16/21 05:10 05:10 Sodium 137 Potassium 3.6 Chloride 100 Carbon Dioxide 29 Anion Gap 12 BUN 9 Creatinine 0.82 Estim Creat Clear Calc 121.4 Estimated GFR > 60 Random Glucose 142 H Calcium 8.5 Phosphorus 2.4 L Magnesium 2.0 B-Natriuretic Peptide 801 H Quality Stroke Does the patient have a stroke diagnosis?: No VTE Prior VTE?: No VTE Risk Level:: Medical - moderate - high VTE Device Contraindication: Treatment Not Indicated VTE Drug Contraindication: N/A - Med Ordered
[2021-11-16] MEDS: Sodium,Potassium Phosphates POWD.PACK 2 PACKET PO ×2 (12:09→19:07)
--- NOTE | 2021-11-16 12:37 | P.PNCA_ITS ---
Subjective Subjective Date of Service: 11/16/21 Principal diagnosis: CHF, atrial fibrillation Interval history: Patient converted to atrial fibrillation this morning while having bowel movements. No change in any significant symptoms. No worsening shortness of b reath. Denies any palpitations. Blood pressure is on the lower side but no significant change at this point in time. Still denying alcohol withdrawal and alcohol use Review of Systems Constitutional: Reports no additional constitutional complaints Cardiovascular: Reports no additional cardiovascular complaints, Denies chest pain, Denies lightheadedness, Denies Loss of Consciousness and Reports dyspnea on exertion Respiratory: Reports no additional respiratory complaints and Reports dyspnea on exertion Gastrointestinal: Reports no additional gastrointestinal complaints Genitourinary: Reports no additional male genitourinary complaints Musculoskeletal: Reports no additional musculoskeletal complaints Skin/Breast: Reports system reviewed and no additional complaints, except as docu Reports system reviewed and no additional complaints, except as documented Physical Exam Vital Signs: Last Vital Signs Temp 98.3 F 11/16/21 12:00 Pulse 94 11/16/21 12:00 Resp 16 11/16/21 12:00 BP 109/58 L 11/16/21 12:00 Pulse Ox 92 11/16/21 12:00 BMI result Body Mass Index 30.4 Const General: cooperative, comfortable, alert and tired appearing Nutritional Appearance: overweight Orientation/consciousness: patient oriented x3 Neck Neck: Yes trachea midline, Yes supple and Yes no JVD Resp Effort & Inspection: normal respiratory effort Auscultation: no rales and diminished lung sounds bilateral in the lower lung lama Cardio Jugular venous distension: no JVD Rhythm: abnormal rhythm irregularly irregular Heart sounds: S1 normal heart sound present, S2 normal heart sound present, no click, no gallops and no murmurs GI Auscultation: normal bowel sounds Skin General skin exam: no rashes or lesions noted Neuro General: patient oriented x3 and no focal motor deficits Extrem General: Yes no clubbing, cyanosis or edema Objective Labs and Meds Result diagrams: 11/15/21 05:17 11/16/21 05:10 Lab results: Laboratory Results - last 24 hr 11/16/21 11/16/21 05:10 05:10 Sodium 137 Potassium 3.6 Chloride 100 Carbon Dioxide 29 Anion Gap 12 BUN 9 Creatinine 0.82 Estim Creat Clear Calc 121.4 Estimated GFR > 60 Random Glucose 142 H Calcium 8.5 Phosphorus 2.4 L Magnesium 2.0 B-Natriuretic Peptide 801 H Imaging Radiologist's impression: Impressions Chest CT 11/16/21 03:31 IMPRESSION: Bilateral lower lobe consolidation with air bronchograms. With this appearance this suggests segmental atelectasis. Fleischner guidelines were followed. Progress Note: A&P Assessment and plan (1) Atrial fibrillation with RVR: Status: Acute Assessment and Plan: Recurrent atrial fibrillation after cardioversion couple days ago. Unlikely to benefit from repeat cardioversion now unless completely loading with amiodarone has been completed orally. This will take about 2 weeks. Has no intracardiac thrombi and has remained on uninterrupted oral anticoagulation. As long as he maintains compliance with medications and followups, will schedule him for outpatient cardioversion couple weeks. Continue amiodarone loading as discussed before. Low-dose metoprolol to be added for better rate control. Continue full oral anticoagulation without interruption. Discussed with patient the importance of taking medications and compliance with follow-up as well as complete abstinence from alcohol. He is willing to follow treatment plan (2) Cardiomyopathy: Status: Acute Assessment and Plan: Significant LV systolic dysfunction suspected to be tachycardia mediated. Also alcohol induced cardiomyopathy cannot be entirely ruled out. Complete abstinence from alcohol was discussed. Pursue rate control for now. Eventually will pursue rhythm control once adequate loading of amiodarone as completed. Continue full oral anticoagulation. Continue Diovan 40 mg b.i.d. and add low- dose metoprolol both for neurohormonal modulation. Cannot further uptitrate medications due to lower blood pressure. Switch to p.o. Lasix 40 mg daily. CHF education to be provided. Will continue to follow with you Time Spent With Patient Time: Total time spent is greater than 50% in coordination of care (as documented) at patient's floor/unit and/or counseling patient: Progress Note: Quality Stroke Does the patient have a stroke diagnosis?: No Procedures Date of Service Date of Service: 11/16/21
[2021-11-16] MEDS: Potassium Chloride Packet 20 MEQ PACKET 40 MEQ PO (14:30)
[2021-11-17] VITALS (8 sets, daily range): BP systolic 94–127; BP diastolic 58–75; PULSE 62–125; RESP 16–30; TEMP 36.5–37.2; O2SAT 90–98; BMI 30.1
[2021-11-17] MEDS: 0.9 % Sodium Chloride Flush 3 ML SYRINGE IVFLUSH ×4 (00:06→20:40)
[2021-11-17 05:56] LABS: Hemoglobin 14.6 g/dl (14.0-18.0); Mean Corpuscular HGB Conc 33.2 g/dl (31.0-36.0); Mean Corpuscular Hemoglobin 35.4 pg (27.0-33.0); Mean Corpuscular Volume 106.5 fL (80.0-98.0); Mean Platelet Volume 10.5 fL (9.4-12.4); Platelet Count 150 X10*3/uL (160-400); Red Blood Count 4.13 X10*6/uL (4.60-5.80); Red Cell Distribution Width 13.3 % (11.0-16.0); White Blood Count 5.9 X10*3/uL (4.8-10.8)
[2021-11-17 06:16] LABS: Alanine Aminotransferase 35 U/L (0-40); Albumin Level 3.6 g/dL (3.5-5.0); Alkaline Phosphatase 82 U/L (39-117); Anion Gap 12 (12-20); Aspartate Amino Transferase 41 U/L (5-37); Bilirubin Total 0.7 mg/dL (0.0-1.0); Blood Urea Nitrogen 11 mg/dL (9-16); Calcium 9.3 mg/dL (8.4-10.2); Carbon Dioxide 32 mmol/L (22-29); Chloride 101 mmol/L (96-108); Creatinine Clr Calc Pharmacy 96.8; Estimated Glomerular Filt Rate > 60; Glucose Random 136 mg/dL (60-115); Magnesium 1.7 mg/dL (1.6-2.6); Phosphorus 3.3 mg/dL (2.7-4.5); Sodium 141 mmol/L (135-145); Total Protein 6.4 g/dL (6.5-8.0)
[2021-11-17 06:18] LABS: B Type Natriuretic Peptide 858 pg/mL (<100)
--- NOTE | 2021-11-17 06:18 | PC.NURSE ---
CARE ASSUMED 23;15..AWAKE..ALERT..ORIENTED TO PERSON/TIME..DISORIENTED TO RECENT EVENTS..STATED AT HS I NEED TO GO TO [facility] TO HAVE ALL THESE TUBES TAKEN OUT ...RE-ORIENTED TO EVENTS SINCE ARRIVAL TO ER LAST WEEK..STATED IT SOUNDS LIKE BUUL CRAP TO ME ...RESPIRATIONS EASY ON ROOM AIR..C0-OPERATIVE BUT REMAINS IMPULSIVE..CLIMBS OOB W/O CALLING...BED ALARM AND CAMERA IN PLACE...ATRIAL FIB HR 90'S-100'S AT HS..CONVERTED TO NSR WITH OCASSIINAL PVC'S OVERNIGHT.
[2021-11-17] MEDS: Apixaban 5 MG TABLET PO ×2 (09:16→20:40)
[2021-11-17] MEDS: Metoprolol Tartrate 12.5 MG HALFTAB PO (09:16)
[2021-11-17] MEDS: Amiodarone HCL 200 MG TABLET 400 MG OG-TUBE (09:16)
[2021-11-17] MEDS: Furosemide 40 MG TABLET PO (09:16)
[2021-11-17] MEDS: Valsartan 40 MG TABLET PO ×2 (09:17→20:40)
--- NOTE | 2021-11-17 10:40 | PM.PNCARD ---
Subjective Subjective Date of Service: 11/17/21 Principal diagnosis: CHF, atrial fibrillation Interval history: Patient seen and examined. Also discussed with nurse at the bedside. Patient states he is doing good. No angina or shortness of breath or palpitations or leg swelling or syncopal episodes or in fact anything cardiac related at all. However he has not gotten out of bed and has not ambulated yet. He is asking to get discharge. Review of Systems Review of Systems Yes all other systems are reviewed and are negative Constitutional: Reports as per HPI Eyes: Reports as per HPI Reports as per HPI Cardiovascular: Reports as per HPI, Denies acrocyanosis, Denies cool extremities, Denies chest pain, Denies leg edema, Denies lightheadedness, Denies palpitations and Denies dyspnea Respiratory: Reports as per HPI, Reports no additional respiratory complaints and Denies dyspnea Gastrointestinal: Reports as per HPI and Reports no additional gastrointestinal complaints Genitourinary: Reports no additional male genitourinary complaints and Reports as per HPI Musculoskeletal: Reports no additional musculoskeletal complaints and Reports as per HPI Skin/Breast: Reports system reviewed and no additional complaints, except as docu Reports system reviewed and no additional complaints, except as documented and Reports as per HPI Psychiatric: Reports no additional psychiatric complaints and Reports as per HPI Endocrine: Reports no additional endocrine complaints, Reports as per HPI and Denies palpitations Hematologic/Lymphatic: Reports no additional hematologic/lymphatic complaints and Reports as per HPI Allergic/Immunologic: Reports no additional allergic/immunologic complaints and Reports as per HPI Physical Exam Vital Signs: Last Vital Signs Temp 97.8 F 11/17/21 08:00 Pulse 70 11/17/21 08:00 Resp 16 11/17/21 08:00 BP 94/58 L 11/17/21 08:00 Pulse Ox 92 11/17/21 08:00 BMI result Body Mass Index 30.1 Const General: comfortable and no acute distress Orientation/consciousness: patient oriented x3 HEENT Other: Unremarkable Head: Yes normal to inspection Neck Neck: Yes normal visual inspection Chest Chest palpation & inspection: normal inspection of the chest Resp Auscultation: clear to auscultation bilaterally Cardio Palpation: normal PMI Heart sounds: S1 normal heart sound present, S2 normal heart sound present, no gallops, no murmurs and no rubs GI Palpation (GI): Soft to palpation Back/Spine/Pelvis Other: unremarkable Skin General skin exam: no rashes or lesions noted Neuro General: patient oriented x3 Extrem General: Yes normal to inspection Psych Mental Status: mental status grossly normal Objective Labs and Meds Result diagrams: 11/17/21 05:44 11/17/21 05:44 Lab results: Laboratory Results - last 24 hr 11/17/21 11/17/21 11/17/21 05:44 05:44 05:44 WBC 5.9 RBC 4.13 L Hgb 14.6 Hct 44.0 MCV 106.5 H MCH 35.4 H MCHC 33.2 RDW 13.3 Plt Count 150 L D MPV 10.5 Absolute Nucleated RBC 0.000 Nucleated RBC % (auto) 0.0 Sodium 141 Potassium 4.0 Chloride 101 Carbon Dioxide 32 H Anion Gap 12 BUN 11 Creatinine 1.01 Estim Creat Clear Calc 96.8 Estimated GFR > 60 Random Glucose 136 H Calcium 9.3 D Phosphorus 3.3 Magnesium 1.7 Total Bilirubin 0.7 AST 41 H D ALT 35 Alkaline Phosphatase 82 B-Natriuretic Peptide 858 H Total Protein 6.4 L Albumin 3.6 ECG Interpretation: On telemetry, he is in sinus rhythm at about 70/Min. Progress Note: A&P Assessment and plan (1) Atrial fibrillation with RVR: Status: Acute Assessment and Plan: He has undergone cardioversion just a few days ago. Based on sign out, he had reverted back to atrial fibrillation but today he went back into sinus rhythm spontaneously few hours ago. Currently in sinus at around 70/Min. Continue with amiodarone loading. Can change to 400 mg b.i.d. for 2 weeks and then 200 mg daily. Continue with anticoagulation. (2) Acute congestive heart failure: Status: Acute Assessment and Plan: In the recent echocardiogram LVEF 10-15%. Could be tachycardia mediated. Alcohol could play a role. Less likely coronary disease but his CT scan of the chest had shown coronary artery calcification hence will need outpatient workup for that. Clinically does not appear to be in congestive heart failure. Can change metoprolol tartrate to Toprol-XL. Low-dose diuretics. Valsartan is acceptable. If he is compliant, then can switch to Entresto. (3) Alcohol withdrawal: Status: Acute Assessment and Plan: Not sure if he still has some withdrawal as he kept insisting that he wants to leave. Will discuss with hospitalist. Time Spent With Patient Time: Total time spent is greater than 50% in coordination of care (as documented) at patient's floor/unit and/or counseling patient: 40min Progress Note: Quality Stroke Does the patient have a stroke diagnosis?: No Procedures Date of Service Date of Service: 11/17/21
--- NOTE | 2021-11-17 12:28 | P.PNIM_ITS ---
Subjective Subjective Date of Service: 11/17/21 <Kirstie Singer NP - Last Filed: 11/17/21 13:12> 11/18/21 <Tim Myers MD - Last Filed: 11/18/21 09:01> Review of Systems Follow up Afib RVR No chest pain or sob feeling weak but requesting to go home <Kirstie Singer NP - Last Filed: 11/17/21 13:12> Physical Exam Vital Signs: Vital Signs: Last Vital Signs Temp 97.7 F 11/17/21 12:00 Pulse 125 H 11/17/21 12:00 Resp 30 H 11/17/21 12:00 BP 101/68 11/17/21 12:00 Pulse Ox 90 L 11/17/21 12:00 BMI result Body Mass Index 30.1 <Kirstie Singer NP - Last Filed: 11/17/21 13:12> Appearing in no acute distress lung sounds are clear to auscultation heart regular rate rhythm, clear S1, S2 positive bowel sounds, abdomen is soft, nontender neuro patient is alert x3, no focal deficits <Kirstie Singer NP - Last Filed: 11/17/21 13:12> Objective Data Active Medications Amiodarone HCl (Amiodarone Hcl 200 Mg Tablet) 400 mg OG-TUBE TID [facility] Last Admin: 11/17/21 09:16 Dose: 400 mg Documented by: GATO Apixaban (Apixaban 5 Mg Tablet) 5 mg PO BID [facility] Last Admin: 11/17/21 09:16 Dose: 5 mg Documented by: GATO Furosemide (Furosemide 40 Mg Tablet) 40 mg PO DAILY [facility]; Protocol Last Admin: 11/17/21 09:16 Dose: 40 mg Documented by: GATO Metoprolol Tartrate (Metoprolol Tartrate 12.5 Mg Halftab) 12.5 mg PO BID [facility]; Protocol Last Admin: 11/17/21 09:16 Dose: 12.5 mg Documented by: GATO Sodium Chloride (0.9 % Sodium Chloride Flush 3 Ml Syringe) 3 ml IVFLUSH QSHIFT [facility] Last Admin: 11/17/21 09:16 Dose: 3 ml Documented by: GATO Valsartan (Valsartan 40 Mg Tablet) 40 mg PO BID [facility]; Protocol Last Admin: 11/17/21 09:17 Dose: 40 mg Documented by: GATO <Kirstie Singer NP - Last Filed: 11/17/21 13:12> Labs CBC & Chem 7: : 11/17/21 05:44 11/18/21 05:26 <Kirstie Singer NP - Last Filed: 11/17/21 13:12> Labs: Laboratory Results - last 24 hr 11/17/21 11/17/21 11/17/21 05:44 05:44 05:44 MCV 106.5 H MCH 35.4 H MCHC 33.2 RDW 13.3 Plt Count 150 L D MPV 10.5 Absolute Nucleated RBC 0.000 Nucleated RBC % (auto) 0.0 Anion Gap 12 Estim Creat Clear Calc 96.8 Estimated GFR > 60 Random Glucose 136 H Calcium 9.3 D Phosphorus 3.3 Magnesium 1.7 Total Bilirubin 0.7 AST 41 H D ALT 35 Alkaline Phosphatase 82 B-Natriuretic Peptide 858 H Total Protein 6.4 L Albumin 3.6 <Kirstie Singer NP - Last Filed: 11/17/21 13:12> Assessment and Plan Plan 56 year old man tx from the ICU. initially admitted with shortness of breath orthopnea extremity edema, history of alcohol abuse. Admitted to medical floor however developed alcohol withdrawal symptoms and subsequently alcohol withdrawal syndrome and was transferred to the ICU in intubated treated with propofol, his atrial fibrillation was treated with digoxin with slowing of the heart rate. He subsequently had a CORTNEY cardioversion on November 14. Echocardiogram showed EF of 10-15% with severe global hypokinesis. At 1 point he wanted to florid pulmonary edema, treated with valsartan and Lasix and subsequently extubated the following day and transferred to the medical service in stable condition Afib RVR. dx previous admission s/p successful cardioversion on 11/14/21 into [facility] amiodarone initiation, continue digoxin, Toprol added continue eliquis Acute resp failure secondary to acute CHF resolved Alcohol abuse with withdrawal and alcohol withdrawal syndrome started on phenobarbitol when he showed signs of withdrawal initially then Intubated in the ICU for RENZO, treated with propofol drip and librium extubated and now no signs of withdrawal noted care team consult hep panel negative PT consult HFrEF EF 10-15% severe hypokinesis Possibly secondary to tachycardia and alcohol use not in florid overload, continue lasix ROXANA. 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 Myers Full code <Kirstie Singer NP - Last Filed: 11/17/21 13:12> Quality Stroke Does the patient have a stroke diagnosis?: No <Kirstie Singer NP - Last Filed: 11/17/21 13:12> VTE Prior VTE?: No <Kirstie Singer NP - Last Filed: 11/17/21 13:12> VTE Risk Level:: Medical - moderate - high <Kirstie Singer NP - Last Filed: 11/17/21 13:12> VTE Device Contraindication: Treatment Not Indicated <Kirstie Singer NP - Last Filed: 11/17/21 13:12> VTE Drug Contraindication: N/A - Med Ordered <Kirstie Singer NP - Last Filed: 11/17/21 13:12>
--- NOTE | 2021-11-17 15:22 | MHC.CM.PN ---
This consumer loan underwriter meet w/ patient, sister and mother. They were requesting in formation re: medical rehab and detox facilities. provided education that there are not facilities in [place] that do both. PT rec home with services, requesting referral for med management and PT. Patient agrees to stay at mother's house d/t ease of entering home versus his own apartment. List of Detox facilities and instructions given to patient.
--- NOTE | 2021-11-17 17:42 | MHC.RECOVSUP ---
Recovery Support note: Patient is a 56 year old Cambodian speaking male who presented to [facility] ED due to afib and swollen ankle and was medically admitted. This internal communications writer met with patient to discuss alcohol use and discharge planning. Patient reports he does not believe he has a drinking problem. Patient reports he typically only drinks on the weekend and that he will have about 4 beers on average. Patient reports he would be able to stop drinking immediately without issue if he was told it was negatively impacting his health. Patient reports his sister has a history of substance use and he feels that she is projecting her past problems onto him. Patient reports he is not interested in detox/ CSS or any recovery program. Patient reports he feels good and does not feel he needs to remain in the hospital. Patient has list of detox facilities in the event that he changes his mind after discharge. Encouraged patient to discuss discharging with his doctor tomorrow. Patient acknowledged. Patient is not interested in recovery resources at this time as he does not feel he needs them. Recovery Support Team available to discuss resources further in the event that patient changes his mind.
[2021-11-17] MEDS: Amiodarone HCL 200 MG TABLET 400 MG PO (20:40)
[2021-11-18 03:11] VITALS: BP 123/74; PULSE 62; RESP 16; TEMP 36.5; O2SAT 95
[2021-11-18 06:02] LABS: Anion Gap 13 (12-20); Blood Urea Nitrogen 9 mg/dL (9-16); Calcium 9.4 mg/dL (8.4-10.2); Carbon Dioxide 29 mmol/L (22-29); Chloride 104 mmol/L (96-108); Creatinine Clr Calc Pharmacy 108.6; Estimated Glomerular Filt Rate > 60; Glucose Random 112 mg/dL (60-115); Potassium 3.7 mmol/L (3.3-5.1); Sodium 142 mmol/L (135-145)
[2021-11-18 06:06] LABS: B Type Natriuretic Peptide 578 pg/mL (<100)
[2021-11-18 07:04] VITALS: BP 127/77; PULSE 60; RESP 18; TEMP 36.2; O2SAT 95
[2021-11-18] MEDS: Amiodarone HCL 200 MG TABLET 400 MG PO (08:17)
[2021-11-18] MEDS: Apixaban 5 MG TABLET PO (08:17)
[2021-11-18] MEDS: Furosemide 40 MG TABLET PO (08:17)
[2021-11-18] MEDS: Metoprolol Succinate ER 12.5 MG HALFTAB.ER.24H PO (08:17)
[2021-11-18] MEDS: Valsartan 40 MG TABLET PO (08:17)
[2021-11-18] MEDS: 0.9 % Sodium Chloride Flush 3 ML SYRINGE IVFLUSH (08:18)
--- NOTE | 2021-11-18 09:35 | PM.PNCARD ---
Subjective Subjective Date of Service: 11/18/21 Principal diagnosis: CHF, atrial fibrillation Interval history: Feels good. Wants to go home. Review of Systems Review of Systems Yes all other systems are reviewed and are negative Constitutional: Reports as per HPI Eyes: Reports as per HPI Reports as per HPI Cardiovascular: Reports as per HPI, Denies acrocyanosis, Denies cool extremities, Denies chest pain, Denies leg edema, Denies lightheadedness, Denies palpitations and Denies dyspnea Respiratory: Reports as per HPI, Reports no additional respiratory complaints and Denies dyspnea Gastrointestinal: Reports as per HPI and Reports no additional gastrointestinal complaints Genitourinary: Reports no additional male genitourinary complaints and Reports as per HPI Musculoskeletal: Reports no additional musculoskeletal complaints and Reports as per HPI Skin/Breast: Reports system reviewed and no additional complaints, except as docu Reports system reviewed and no additional complaints, except as documented and Reports as per HPI Psychiatric: Reports no additional psychiatric complaints and Reports as per HPI Endocrine: Reports no additional endocrine complaints, Reports as per HPI and Denies palpitations Hematologic/Lymphatic: Reports no additional hematologic/lymphatic complaints and Reports as per HPI Allergic/Immunologic: Reports no additional allergic/immunologic complaints and Reports as per HPI Physical Exam Vital Signs: Last Vital Signs Temp 97.2 F 11/18/21 07:04 Pulse 60 11/18/21 07:04 Resp 18 11/18/21 07:04 BP 127/77 11/18/21 07:04 Pulse Ox 95 11/18/21 07:04 BMI result Body Mass Index 30.1 Const General: comfortable and no acute distress Orientation/consciousness: patient oriented x3 HEENT Other: Unremarkable Head: Yes normal to inspection Neck Neck: Yes normal visual inspection Chest Chest palpation & inspection: normal inspection of the chest Resp Auscultation: clear to auscultation bilaterally Cardio Palpation: normal PMI Heart sounds: S1 normal heart sound present, S2 normal heart sound present, no gallops, no murmurs and no rubs GI Palpation (GI): Soft to palpation Back/Spine/Pelvis Other: unremarkable Skin General skin exam: no rashes or lesions noted Neuro General: patient oriented x3 Extrem General: Yes normal to inspection Psych Mental Status: mental status grossly normal Objective Labs and Meds Result diagrams: 11/17/21 05:44 11/18/21 05:26 Lab results: Laboratory Results - last 24 hr 11/18/21 11/18/21 05:26 05:26 Sodium 142 Potassium 3.7 Chloride 104 Carbon Dioxide 29 Anion Gap 13 BUN 9 Creatinine 0.90 Estim Creat Clear Calc 108.6 Estimated GFR > 60 Random Glucose 112 Calcium 9.4 B-Natriuretic Peptide 578 H Progress Note: A&P Assessment and plan (1) Atrial fibrillation with RVR: Status: Acute Assessment and Plan: Status post cardioversion. Remains in sinus rhythm for the last 24 hours. Continue amiodarone loading 40 mg b.i.d. for 2 weeks followed by 200 mg daily. Continue anticoagulation. (2) Acute congestive heart failure: Status: Acute Assessment and Plan: In the recent echocardiogram LVEF 10-15%. Could be tachycardia mediated. Alcohol could play a role. Less likely coronary disease but his CT scan of the chest had shown coronary artery calcification hence will need outpatient workup for that. Clinically, it does not appear to be in active heart failure. Seems compensated. Continue Toprol XL. Continue valsartan. If he comes to the office, then will can switch to Entresto. Low-dose diuretics. (3) Alcohol withdrawal: Status: Acute Assessment and Plan: Seems improved. Discussed about dangers of alcohol excess including and need for complete abstinence. He states he understands. Time Spent With Patient Time: Total time spent is greater than 50% in coordination of care (as documented) at patient's floor/unit and/or counseling patient: 35min. Progress Note: Quality Stroke Does the patient have a stroke diagnosis?: No Procedures Date of Service Date of Service: 11/18/21
[2021-11-18 09:58] VITALS: BP 127/77; PULSE 60; O2SAT 95
--- NOTE | 2021-11-18 11:38 | MHC.CM.PN ---
CM returned a call to Patient's Sister/Lucy @ [phone]. Lucy indicated that Patient was supposed to go to [facility] and CM explained that [facility] was not the recommendation from PT. PT is recommending home with services, but Patient does not have his initial appointment with his new PCP in [place] [employer] until December. Lucy asked about Substance Abuse program (inpatient for a month) and CM explained that the Care Team has provided Patient with a list of options that Patient must actively pursue himself (with family support/encouragement). CM also mentioned a [address] that Lucy stated she was aware of already.CM has asked Attending/WOUND CARE TECHNICIAN/Kirstie to speak with Lucy to address Patient's readiness for dc. CM will follow.
--- NOTE | 2021-11-18 11:45 | MHC.CM.PN ---
PT has indicated in today's PN that Patient is doing significantly better today and does not even appear to be recommending home PT at this point.
[2021-11-18 11:56] VITALS: BP 122/71; PULSE 73; RESP 18; TEMP 36.7; O2SAT 97
--- NOTE | 2021-11-18 12:12 | PM.DS ---
DS: Providers Provider Date of Service: 11/18/21 Date of admission: 11/11/21 09:15 Primary care physician: Unknown Physician Consults: 11/11/21 09:16 Consult to Cardiology Routine Consulting Provider: Justen Rojas Reason for consultation: a. fib, chf 11/17/21 10:26 Consult to Care Team Routine Comment: Reason for consultation: ? INPT ETOH treatment Has provider been notified: Yes Attending physician on discharge: Tim Myers Discharging clinician: Kirstie Singer DS: Diagnosis Discharge Diagnosis (1) Atrial fibrillation with RVR: Status: Acute (2) Acute congestive heart failure: Status: Acute (3) Alcohol withdrawal: Status: Acute DS: Summary Hospital Course Hospital Course: HP as per admitting provider This is a 56 year old male with a PMH of PAF, Alcohol abuse and dependence who was admitted From 10/23/21 - 10/25/21 (he eloped from the hospital and was not formally discharged) for A. Fib with RVR requiring multiple rate control drugs. He now presents to the ED with complaints of SOB, initially with exertion but now even at rest. He reports symptoms started about 10 days ago. He endorses orthopnea and PND. He reports minimal leg swelling. He reports palpitations but denies chest pain. He denies a productive cough, fevers or chills. He reports no sick contacts. He reports that he now drinks only twice weekly and his last drink was on (2 days prior to admission). He rpeorted intake of 2 glasses of red wine. Upon arrival to the ED, he was noted to bein A. Fib RVR. His BNP was significantly elevated. He was given 2 rounds of IV cardizem push and 1 round of IV metoprolol without significant improvement in his heart rates. He was subsequently started on IV cardizem drip. He has also been given a dose of IV lasix and reports urinating about 3L. He will be admitted for further treatment . Afib RVR. dx previous admission s/p successful cardioversion on 11/14/21 into SR amiodarone initiation, Toprol added continue eliquis Acute resp failure secondary to acute CHF resolved Alcohol abuse with withdrawal and alcohol withdrawal syndrome started on phenobarbitol when he showed signs of withdrawal initially then Intubated in the ICU for RENZO, treated with propofol drip and librium extubated and now no signs of withdrawal noted hep panel negative PT rec no services patient meet with recovery team declined interest in detox or any recovery program . He was given a list og community resources and encouraged to stop drinking alcohol for good. HFrEF, cardiomyopathy EF 10-15%? severe hypokinesis Possibly secondary to tachycardia and alcohol use not in florid overload, continue lasix, valsartan follow up with cardiology for medication management ROXANA. 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 LFT trending down Coagulopathy secondary to alcohol abuse Time Spent with Patient Time attestation: Total time spent providing and/or coordinating discharge services: Discharge coordination time: Greater than 30 minutes Quality: Safe Use of Opioids Does Pt have an Active Cancer Diagnosis on the Problem List?: No Quality: Stroke Does the patient have a stroke diagnosis?: No Physical Exam Vital Signs: Vital Signs: Last Vital Signs Temp 98.1 F 11/18/21 11:56 Pulse 73 11/18/21 11:56 Resp 18 11/18/21 11:56 BP 122/71 11/18/21 11:56 Pulse Ox 97 11/18/21 11:56 BMI result Body Mass Index 30.1 Appearing in no acute distress head is normocephalic atraumatic eyes pupils are PERRLA sclera is anicteric mouth throat mucous membranes are intact and moist neck is supple no lymphadenopathy, no JVD noted lung sounds are clear to auscultation heart regular rate rhythm, clear S1, S2 positive bowel sounds, abdomen is soft, nontender neuro patient is alert x3, no focal deficits DS: Data Data Completed and Pending Completed studies during hospitalization [Text1]: Procedures Detoxification Services for Substance Abuse Treatment (10/23/21) Labs on day of discharge: Laboratory Results - last 24 hr 11/18/21 11/18/21 05:26 05:26 Sodium 142 Potassium 3.7 Chloride 104 Carbon Dioxide 29 Anion Gap 13 BUN 9 Creatinine 0.90 Estim Creat Clear Calc 108.6 Estimated GFR > 60 Random Glucose 112 Calcium 9.4 B-Natriuretic Peptide 578 H Discharge Plan Discharge Anticipated Discharge Date/Time: 11/18/21 11:42 Patient Disposition: Home, Self-Care Discharge Diagnosis: Afib RVR Acute resp failure Alcohol abuse and withdrawal HFrEF cardiomyopathy Referrals: Justen Rojas MD [Physician] - 1 Week Discharge Medications: New furosemide 40 mg Tablet 40 mg PO DAILY Qty: 30 0RF Protocol: Hold for SBP< HOLD for SBP < : 90 amiodarone 200 mg Tablet 400 mg PO BID Qty: 62 0RF Rx Instructions: 400 mg for 14 days then 200mg daily valsartan 40 mg Tablet 40 mg PO BID Qty: 60 0RF Protocol: Hold for SBP< HOLD for SBP < : 90 Eliquis 5 mg Tablet 5 mg PO BID Qty: 60 0RF metoprolol succinate 25 mg tablet extended release 24 hr 12.5 mg PO DAILY Qty: 30 0RF Discontinued Emergen-C 1,000 mg Powder Effervescent In Packet 1 ea PO DAILY 0RF Discharge Orders: Discharge Order (Routine); Ordered 11/18/21 Ordered By: Kirstie Singer Diet: advance to usual diet Activity on Discharge: As tolerated Stand Alone Forms: Patient Portal Discharge page Care Plan Goals: Stop drinking alcohol Health Concerns: Afib RVR Acute resp failure Alcohol abuse and withdrawal HFrEF cardiomyopathy Plan of Treatment: Please make an appointment for a primary care doctor Follow up with the secondary social studies teacher Assessment: See discharge summary
--- NOTE | 2021-11-18 12:25 | MHC.CM.PN ---
Patient has been medically cleared for dc to home today, self care.
== END 2021-11-18 14:24 | disposition home or self-care (01) | DRG 194 ==
LOC: HO.ED 05:22 → HO.EDOVER 09:24 → HO.ICU 11-12 13:37 → HO.IMC 11-13 14:20 → HO.ICU 11-13 14:22 → HO.IMC 11-17 19:29
PROVIDERS: Anesthesiology; Emergency Medicine; Physician Assistant Medical; Admitting Provider Family Medicine; Emergency Provider Emergency Medicine; Visit Provider Nurse Practitioner Acute Care
DX: I11.0 Hypertensive heart disease with heart failure (principal); N17.0 Acute kidney failure with tubular necrosis; J96.00 Acute respiratory failure, unspecified whether with hypoxia or hypercapnia; G92.9 Unspecified toxic encephalopathy; E87.2 Acidosis; I95.9 Hypotension, unspecified; I42.0 Dilated cardiomyopathy; D68.4 Acquired coagulation factor deficiency; E86.1 Hypovolemia; I42.8 Other cardiomyopathies; K70.10 Alcoholic hepatitis without ascites; Z79.01 Long term (current) use of anticoagulants; E83.42 Hypomagnesemia; I48.0 Paroxysmal atrial fibrillation; I50.23 Acute on chronic systolic (congestive) heart failure; F10.239 Alcohol dependence with withdrawal, unspecified; Z20.822 Contact with and (suspected) exposure to COVID-19; Z79.899 Other long term (current) drug therapy
CPT/HCPCS: 36415; 71045; 71250; 80048; 80053; 80076; 80162; 82140; 82803; 83605; 83735; 83880; 84100; 84484; 85025; 85027; 85610; 86704; 86706; 86709; 86803; 87340; 87635; 93005; 93306; 93312; 94002; 94003; 94799; 96365; 96366; 96375; 97110; 97116; 97162; 99285; 99291; C1758; J0171; J1160; J1940; J2060; J3010; J3475

== ENCOUNTER → 2021-11-25 09:35 | Outpatient (BNVA) | payer MEDICAID, SELFPAY | PROVIDERS: Visit Provider Internal Medicine Cardiovascular Disease | DX: I48.91 Unspecified atrial fibrillation (principal) | CPT/HCPCS: 93005 ==

== ENCOUNTER 2022-01-07 10:37 | Day surgery (SDC) | payer OTHER, SELFPAY ==
[2022-01-07] VITALS (7 sets, daily range): BP systolic 128–145; BP diastolic 56–99; PULSE 72–108; RESP 16–23; TEMP 36.6–37.5; O2SAT 94–97; BMI 27.2
--- NOTE | 2022-01-07 11:58 | MHC.SHP ---
Pre-Procedural Eval Section A Date of Service: 01/07/22 Section B Chief Complaint: atrial flutter Details of Present Illness: Patient with persistent atrial flutter with rapid ventricular response which was difficult control with severe heart failure and severe LV systolic dysfunction. Started on amiodarone to help with maintaining rhythm. Also on Eliquis to prevent thromboembolic complication. Relevant Family History (Specify if Yes): Yes Relevant Social History: Alcohol Use Medical History: Significant History Allergies: Allergies Allergy/AdvReac Type Severity Reaction Status Date / Time No Known Allergies Allergy Verified 01/09/21 12:30 [No Known Allergies*] Review of Systems Sugical H&P ROS: Negative: Constitution, Respiratory, Neurological, Psychiatric, Hem-Onc, Allergic/Immunologic, Gastrointestinal, Genitourinary, Musculoskeletal, Integumentary and Endocrine and Yes, Specify: Cardiovascular (Atrial flutter) Exam Surgical H&P Exam: Normal: HEENT, Normal: Lungs, Normal: Extremities, Normal: Skin and Normal: Neurological and Significant Findings: Heart (Irregular heartbeat) Plan Diagnosis/Plan: Unchanged I have reviewed the history and physical and performed a pertinent physical examination on my patient. No changes have occurred unless specified.
--- NOTE | 2022-01-07 13:44 | HO.ANESPROP2 ---
HPI - Anesthesia Eval Consult details Narrative: Atrial fibrillation [facility] Active Problems Active Problems: All Active Problems (Updated 11/26/21 @ 00:03 by Background Adeline) Cardiomyopathy (Acute) Alcohol dependence with withdrawal (Acute) Atrial fibrillation with rapid ventricular response (Acute) Alcohol intoxication (Acute) Atrial flutter with rapid ventricular response (Acute) Alcoholic hepatitis (Acute) Acute hyponatremia (Acute) Past Medical History Medical History Alcohol dependence with withdrawal Alcoholic hepatitis Atrial fibrillation with rapid ventricular response HTN (hypertension) Family History Family History Father CAD (coronary artery disease) Family history of problems with anesthesia: No Surgical History Surgical History No pertinent past surgical history History of Problems with Anesthesia: No Social History Social History Household Members: Unknown / Unable to assess Housing: Unknown / Unable to assess Do you presently have visiting nurse or other home services: No Unable to assess alcohol history related to: Unable to respond Alcohol intake: current Alcohol intake frequency: other Alcohol type: wine Patient Tobacco Use Status: Never used Tobacco Use of substances other than those prescribed or required for medical reasons: No Are you DNR?: No Advance Directives: No Advance Directives Information Provided: Yes service: No Current occupational status: unemployed Meds Allergies Allergy/AdvReac Type Severity Reaction Status Date / Time No Known Allergies Allergy Verified 01/09/21 12:30 [No Known Allergies*] Exam Exam Date and Time: January 07, 2022 1344 Height,Weight and Vital Signs: Height 5 ft 10 in Weight 86.183 kg Airway Mallampati Class: III TM Dist: >3cm Neck ROM: Full Loose/Missing/Broken Teeth: No Heart: irreg irreg s1s2 Lungs: cta b/l Assessment and Plan Assessment Anesthesia Assessment: Anesthesia Plan Discussed and Chart Reviewed Final Anesthetic Review Family History of Problems with Anesthesia: No History of Problems with Anesthesia: No NPO: Yes ASA Class: III Final Preanesthetic Review: No Changes in Pt Med Stat, Meds/Allgs Chart Reviewed, Consent Obtained/Reviewed and Anes Risks/Benef Reviewed Patient Risk: Intermediate Procedure Risk: Intermediate Assessment/Block/Sedation in SS: Assess/Block/Sedation-SS Anesthetic Plan Anesthetic Plan: GA and Agree w/ Assess. and Plan Disposition: Standard PACU
[2022-01-07] MEDS: Lactated Ringers 1,000 ML 50 ML IVCONT (14:01)
[2022-01-07] MEDS: Apixaban 5 MG TABLET PO (14:13)
--- NOTE | 2022-01-07 14:22 | ECG_ITS ---
Test Reason : post cardioversion Blood Pressure : / mmHG Vent. Rate : 069 BPM Atrial Rate : 069 BPM P-R Int : 206 ms QRS Dur : 114 ms QT Int : 454 ms P-R-T Axes : 034 020 026 degrees QTc Int : 486 ms Normal sinus rhythm Possible Left atrial enlargement Incomplete left bundle branch block Prolonged QT Abnormal ECG When compared with ECG of 14-NOV-2021 11:49, Nonspecific T wave abnormality, improved in Inferior leads Nonspecific T wave abnormality no longer evident in Lateral leads QT has lengthened Referred By: Maximino Baker Electronically Signed By:Wally Arreola
--- NOTE | 2022-01-07 14:22 | PC.NURSE ---
pt forgetful and poor historian at times, changing answers to questions. admitted to yogurt 1/2 cut @ 0530 & 1/2 cup of lemonade at 0545, therefore, text to Dr. Lai Hart and decision to prolong cardioversion until 1430. pt aware. a&ox3. requires frequent redirection and explanations before he remembers.
--- NOTE | 2022-01-07 15:07 | HO.CARDIVERS ---
Cardioversion Procedure Note Cardioversion Date of Procedure: 01/07/2022 Ordering Provider: Myself Performing Provider: Myself Indication for Procedure: Persistent atrial fibrillation with difficult to control rate with severe LV systolic dysfunction and heart failure Pre-Op Diagnosis: Same Post-Op Diagnosis: Sinus rhythm Performed with Transesophageal Echo: No History: See my office note Consent: Verbal and Written consent was obtained from the patient before starting after confirming oral anticoagulation use and giving him 1 dose of Eliquis 5 mg. The patient was made aware of the risk of synchronized cardioversion including risk, benefits, alternatives and 2nd open to procedure Procedure: After consent obtained, cardioversion pads were attached in anteroposterior configuration and the patient was sedated by the anesthesia team. Once adequate sedation achieved, patient was delivered 200 joules of biphasic synchronized energy in anteroposterior configuration Complications: None Impression: Successful conversion to sinus rhythm Recommendations: 1. 12 lead EKG post cardioversion 2. Continue amiodarone and oral anticoagulation use 3. Follow up in the office after Holter monitor 4. Complete cessation of alcohol was advised
== END 2022-01-07 16:04 | disposition home or self-care (01) ==
PROVIDERS: Visit Provider Internal Medicine Cardiovascular Disease
PROC: 5A2204Z Restoration of Cardiac Rhythm, Single (ICD-10-PCS; principal; 2022-01-07 12:00)
DX: I48.19 Other persistent atrial fibrillation (principal); I11.0 Hypertensive heart disease with heart failure; I50.20 Unspecified systolic (congestive) heart failure; Z79.01 Long term (current) use of anticoagulants
CPT/HCPCS: 92960; 93005; J0330; J0461; J2370

== ENCOUNTER → 2022-01-21 07:00 | Outpatient (REF) | payer OTHER, SELFPAY ==
--- NOTE | 2022-01-21 07:04 | HM_ITS ---
Conclusion: 1. Patient was monitored for total period of 2 days and 23 hours 2. Baseline rhythm is normal sinus rhythm with average heart of 90 beats per minute 3. Intermittent episodes of atrial fibrillation with longest lasting 20 hours and 7 minutes with total burden of 28% of time in atrial fibrillation with fastest heart rate in atrial fibrillation at 156 beats per minute 4. One hundred nineteen episodes of nonsustained VT with longest of 8 beats and fastest at 165 beats per minute 5. Total of 40,324 PVCs accounting for 10.27% of total beats accounting for frequent PVCs 6. No patient reported events MTDD
== END ==
LOC: HO.CARD 07:00
PROVIDERS: Visit Provider Internal Medicine Cardiovascular Disease
DX: I48.92 Unspecified atrial flutter (principal); I48.91 Unspecified atrial fibrillation
CPT/HCPCS: 93242

== ENCOUNTER 2022-05-24 18:56 | Inpatient (IN) | payer OTHER, SELFPAY ==
--- NOTE | 2022-05-24 | ECG_ITS ---
Test Reason : CHEST PAIN Blood Pressure : / mmHG Vent. Rate : 152 BPM Atrial Rate : 000 BPM P-R Int : 000 ms QRS Dur : 094 ms QT Int : 296 ms P-R-T Axes : 000 017 231 degrees QTc Int : 470 ms Atrial fibrillation with rapid ventricular response with premature ventricular or aberrantly conducted complexes ST depression, consider subendocardial injury Abnormal ECG When compared with ECG of 07-JAN-2022 14:50, Atrial fibrillation is new ST now depressed in Lateral leads Inferior leads Referred By: Tom Danielle Electronically Signed By:KASEY MONTELONGO MD
--- NOTE | ~2022-05-24 | XR_ITS ---
EXAMINATION: XR CHEST CLINICAL INFORMATION: CHF. COMPARISON: Chest x-ray 11/15/2021 TECHNIQUE: Frontal portable view of the chest was obtained. 7:33 PM FINDINGS: No significant abnormality is noted involving the heart, lungs, mediastinum, bony thorax or soft tissues. XR/XR chest 1V IMPRESSION: Unremarkable examination.
--- NOTE | 2022-05-24 19:00 | ED_ITS ---
HPI - SOB/Dyspnea General Chief Complaint: Arrhythmia/Palpitations Stated Complaint: Diff Breathing Time Seen by Provider: 05/24/22 18:59 Source: patient Mode of arrival: ambulatory Limitations: no limitations History of Present Illness HPI Narrative: Patient history of alcohol dependence atrial fibrillation on amiodarone last 6 months, patient visiting hospital to see his mother and and noticed weak dizzy came to the ER with heart rate in 150s AFib blood pressure 166/91 patient had last drink yesterday no chest pain no loss of consciousness no shortness of breath no leg edema Related Data Previous Rx's Medication Instructions Recorded amiodarone 200 mg tablet 200 mg PO DAILY 90 days #90 tabs 12/31/21 apixaban 5 mg tablet (Eliquis) 5 mg PO BID #180 tabs 12/31/21 furosemide 40 mg tablet 40 mg PO DAILY 90 days #90 tabs 12/31/21 metoprolol succinate 25 mg 12.5 mg PO DAILY #45 tabs 12/31/21 tablet,extended release 24 hr valsartan 40 mg tablet 40 mg PO BID #180 tabs 12/31/21 Allergies Allergy/AdvReac Type Severity Reaction Status Date / Time No Known Allergies Allergy Verified 01/09/21 12:30 [No Known Allergies*] Review of Systems Review of Systems: Yes all other systems are reviewed and are negative PMFSH Past Medical History Medical History Alcohol dependence with withdrawal Alcoholic hepatitis Atrial fibrillation with rapid ventricular response HTN (hypertension) Surgical History No pertinent past surgical history Family History Family History Father CAD (coronary artery disease) Social History Social History Household Members: None Housing: Apartment Do you presently have visiting nurse or other home services: No Unable to assess alcohol history related to: Unable to respond Alcohol intake: current Alcohol intake frequency: 3 or more drinks per day Alcohol type: hard liquor Patient Tobacco Use Status: Never used Tobacco Smoked in Last 30 Days: No Use of substances other than those prescribed or required for medical reasons: No Currently Displaying Signs/Symptoms of Drug Intoxication Withdrawal: No Have you been hit, kicked, punched, or otherwise hurt by someone within the past year? If so, by whom?: No Do you feel safe in your current relationship?: Yes Is there a partner from a previous relationship who is making you feel unsafe now?: No Are you made to feel afraid or neglected: No Advance Directives: No Advance Directives Information Provided: Yes Do you have thoughts of harming others: None Do you have a plan to hurt others: No Plan Recently lost weight without trying: No Eating poorly because of decreased appetite: No Nutrition Risks: On aspiration precautions Poor oral hygiene: No service: No Current occupational status: unemployed Physical Exam Vital Signs: Vital Signs: Last Vital Signs Temp 98.5 F 05/24/22 23:13 Pulse 82 05/24/22 23:13 Resp 18 05/24/22 23:13 BP 135/101 H 05/24/22 23:13 Pulse Ox 97 05/24/22 23:13 O2 Del Method 05/24/22 23:13 BMI result Body Mass Index 28.7 Appearance: Alert. Oriented X3. No acute distress. Eyes: No pallor/icterus ENT: Pharynx normal. Oral Mucosa moist Neck: Normal inspection. Neck supple. CVS: Irregular regular tachycardia. Pulses normal. Respiratory: No respiratory distress. Equal air entry bilateral, no wheezing/rales/rhonchi Abdomen: Soft and nontender. Bowel sounds are present, no mass palpable, no CVA tenderness Skin: Skin warm and dry. Normal skin color. Normal skin turgor. Extremities: No lower extremity edema. No calf tenderness Neuro: Oriented X 3. No motor deficit. No sensory deficit.No cerebellar signs , cranial nerves II-XII intact Medications Administered Generic Name Dose Route Start Last Admin Trade Name Freq PRN Reason Stop Dose Admin Folic Acid 1 mg 05/24/22 21:00 05/24/22 21:06 Folic Acid 1 Mg Tablet PO 1 mg DAILY EDWIN Administration Diltiazem HCl 125 mg/ Sodium 125 mls @ 0 mls/hr 05/24/22 21:15 05/24/22 23:15 Chloride IVCONT 15 mg/hr .Q0M EDWIN 15 mls/hr Titration Protocol Per Protocol Ondansetron HCl 4 mg 05/24/22 20:51 05/24/22 23:11 Ondansetron Hcl 4 Mg/2 Ml Vial IVPUSH 4 mg Q8H PRN Administration Nausea and Vomiting Sodium Chloride 3 ml 05/25/22 00:00 05/25/22 00:21 0.9 % Sodium Chloride Flush 3 Ml Syringe IVFLUSH Not Given QSHIFT EDWIN Thiamine HCl 100 mg 05/24/22 21:00 05/24/22 21:06 Thiamine Hcl 100 Mg Tablet PO 100 mg DAILY EDWIN Administration Discontinued Medications Generic Name Dose Route Start Last Admin Trade Name Shilo PRN Reason Stop Dose Admin Diltiazem HCl 10 mg 05/24/22 19:14 05/24/22 19:19 Diltiazem Hcl 50 Mg/10 Ml Vial IVPUSH 05/24/22 19:15 10 mg STAT STA Administration Diltiazem HCl 10 mg 05/24/22 19:26 05/24/22 19:28 Diltiazem Hcl 50 Mg/10 Ml Vial IVPUSH 05/24/22 19:27 10 mg STAT STA Administration Magnesium Sulfate 2 gm in 50 mls @ 100 mls/hr 05/24/22 19:37 05/24/22 20:20 Magnesium Sulfate/H2o IV 05/24/22 20:06 Infused ONCE ONE Infusion Metoprolol Tartrate 5 mg 05/24/22 19:26 05/24/22 19:29 Metoprolol Tartrate 5 Mg/5 Ml Vial IVPUSH 05/24/22 19:27 5 mg ONCE ONE Administration Midazolam HCl 1 mg 05/24/22 19:37 05/24/22 19:44 Midazolam Hcl/Pf 2 Mg/2 Ml Vial IVPUSH 05/24/22 19:38 1 mg ONCE ONE Administration Ondansetron HCl 4 mg 05/24/22 21:38 05/24/22 22:43 Ondansetron Hcl 4 Mg/2 Ml Vial IVPUSH 05/24/22 21:39 Not Given ONCE ONE Phenobarbital Sodium 292 mg 05/24/22 21:00 05/24/22 21:24 Phenobarbital Sodium 130 Mg/Ml Im Once IM 05/24/22 21:01 292 mg ONCE ONE Administration MDM - SOB/Dyspnea MDM Narrative Medical decision making narrative: Patient with paroxysmal AFib on amiodarone came with AFib with rapid ventricular rate responded to IV Cardizem admit patient for further management Medical Records Attestation: I reviewed the patient's medical records. Lab Data Attestation: I reviewed the patient's lab results. Result diagrams: 05/24/22 19:18 05/24/22 19:18 Labs: Lab Results 05/24/22 05/24/22 05/24/22 Range/Units 19:18 19:18 19:18 WBC 9.4 (4.8-10.8) X10*3/uL RBC 4.21 L (4.60-5.80) X10*6/uL Hgb 15.0 (14.0-18.0) g/dl Hct 42.6 (42.0-52.0) % MCV 101.2 H (80.0-98.0) fL MCH 35.6 H (27.0-33.0) pg MCHC 35.2 (31.0-36.0) g/dl RDW 12.4 (11.0-16.0) % Plt Count 124 L (160-400) X10*3/uL MPV 9.7 (9.4-12.4) fL Immature Gran % (Auto) 0.3 (0.0-0.4) % Neut % (Auto) 86.4 H (45-73) % Lymph % (Auto) 5.6 L (20-40) % [place] % (Auto) 7.2 (2-11) % Eos % (Auto) 0.1 (0-4) % Baso % (Auto) 0.4 (0-2) % Lymph # (Auto) 0.5 L (1.2-4.9) X10*3/uL [place] # (Auto) 0.7 (0.1-1.2) X10*3/uL Eos # (Auto) 0.0 (0.0-0.4) X10*3/uL Baso # (Auto) 0.0 (0.0-0.2) X10*3/uL Abs Immat Gran (auto) 0.03 (0.00-0.03) X10*3/uL Absolute Neuts (auto) 8.1 (2.0-8.3) x10*3/uL Absolute Nucleated RBC 0.000 (0.0-0.012) X10*3/uL Nucleated RBC % (auto) 0.0 (0.0-0.2) /100WBC PT 11.1 (10.0-13.1) SEC INR 1.0 (0.9-1.1) Sodium 140 (135-145) mmol/L Potassium 4.6 D (3.3-5.1) mmol/L Chloride 102 (96-108) mmol/L Carbon Dioxide 16 L (22-29) mmol/L Anion Gap 27 H (12-20) BUN 8 L (9-16) mg/dL Creatinine 0.94 (0.5-1.4) mg/dL Estim Creat Clear Calc 101.7 Estimated GFR > 60 Random Glucose 195 H D (60-115) mg/dL Calcium 9.1 (8.4-10.2) mg/dL Magnesium 1.4 L* (1.6-2.6) mg/dL Total Bilirubin 2.0 H (0.0-1.0) mg/dL AST 99 H (5-37) U/L ALT 50 H (0-40) U/L Alkaline Phosphatase 97 (39-117) U/L Troponin I High Sens (<3.5-35.0) ng/L B-Natriuretic Peptide (<100) pg/mL Total Protein 7.6 (6.5-8.0) g/dL Albumin 4.4 D (3.5-5.0) g/dL Ethyl Alcohol 15 mg/dL 05/24/22 05/24/22 Range/Units 19:18 19:18 WBC (4.8-10.8) X10*3/uL RBC (4.60-5.80) X10*6/uL Hgb (14.0-18.0) g/dl Hct (42.0-52.0) % MCV (80.0-98.0) fL MCH (27.0-33.0) pg MCHC (31.0-36.0) g/dl RDW (11.0-16.0) % Plt Count (160-400) X10*3/uL MPV (9.4-12.4) fL Immature Gran % (Auto) (0.0-0.4) % Neut % (Auto) (45-73) % Lymph % (Auto) (20-40) % [place] % (Auto) (2-11) % Eos % (Auto) (0-4) % Baso % (Auto) (0-2) % Lymph # (Auto) (1.2-4.9) X10*3/uL [place] # (Auto) (0.1-1.2) X10*3/uL Eos # (Auto) (0.0-0.4) X10*3/uL Baso # (Auto) (0.0-0.2) X10*3/uL Abs Immat Gran (auto) (0.00-0.03) X10*3/uL Absolute Neuts (auto) (2.0-8.3) x10*3/uL Absolute Nucleated RBC (0.0-0.012) X10*3/uL Nucleated RBC % (auto) (0.0-0.2) /100WBC PT (10.0-13.1) SEC INR (0.9-1.1) Sodium (135-145) mmol/L Potassium (3.3-5.1) mmol/L Chloride (96-108) mmol/L Carbon Dioxide (22-29) mmol/L Anion Gap (12-20) BUN (9-16) mg/dL Creatinine (0.5-1.4) mg/dL Estim Creat Clear Calc Estimated GFR Random Glucose (60-115) mg/dL Calcium (8.4-10.2) mg/dL Magnesium (1.6-2.6) mg/dL Total Bilirubin (0.0-1.0) mg/dL AST (5-37) U/L ALT (0-40) U/L Alkaline Phosphatase (39-117) U/L Troponin I High Sens 14.7 (<3.5-35.0) ng/L B-Natriuretic Peptide 92 (<100) pg/mL Total Protein (6.5-8.0) g/dL Albumin (3.5-5.0) g/dL Ethyl Alcohol mg/dL ECG Data Attestation: I personally reviewed and interpreted this ECG as follows: Interpretation: Atrial fibrillation with ventricular rate 152 with occasional PVCs nonspecific ST depression no acute ischemia Discharge Plan Discharge Clinical Impression: Atrial fibrillation with rapid ventricular response, Alcohol dependence with withdrawal Patient Disposition: Admitted As Inpatient Interventions: Admission Worksheet (ED) Last Done: 05/24/22 22:58
[2022-05-24] MEDS: dilTIAZem HCL 50 MG/10 ML VIAL 10 MG IVPUSH ×2 (19:19→19:28)
[2022-05-24 19:23] VITALS: BP 166/91; PULSE 155; RESP 16; TEMP 36.9; O2SAT 100; BMI 28.7
[2022-05-24 19:24] LABS: MANUAL DIFF FLAG NO
[2022-05-24 19:26] LABS: Basophils Percent Auto 0.4 % (0-2); Eosinophils Percent Auto 0.1 % (0-4); Hematocrit 42.6 % (42.0-52.0); Imm Gran Abs Auto 0.03 X10*3/uL (0.00-0.03); Imm Gran Pct Auto 0.3 % (0.0-0.4); Lymphocytes Absolute Auto 0.5 X10*3/uL (1.2-4.9); Lymphocytes Percent Auto 5.6 % (20-40); Mean Corpuscular HGB Conc 35.2 g/dl (31.0-36.0); Mean Corpuscular Hemoglobin 35.6 pg (27.0-33.0); Mean Corpuscular Volume 101.2 fL (80.0-98.0); Mean Platelet Volume 9.7 fL (9.4-12.4); Monocytes Absolute Auto 0.7 X10*3/uL (0.1-1.2); Monocytes Percent Auto 7.2 % (2-11); Neutrophils Absolute Auto 8.1 x10*3/uL (2.0-8.3); Neutrophils Percent Auto 86.4 % (45-73); Platelet Count 124 X10*3/uL (160-400); Red Blood Count 4.21 X10*6/uL (4.60-5.80); Red Cell Distribution Width 12.4 % (11.0-16.0); White Blood Count 9.4 X10*3/uL (4.8-10.8)
[2022-05-24] MEDS: Metoprolol Tartrate 5 MG/5 ML VIAL IVPUSH (19:29)
[2022-05-24 19:30] LABS: Prothrombin Time 11.1 SEC (10.0-13.1)
[2022-05-24] MEDS: Midazolam HCl/PF 2 MG/2 ML VIAL 1 MG IVPUSH (19:44)
[2022-05-24 19:45] LABS: Troponin-I High Sensitivity 14.7 ng/L (<3.5-35.0)
[2022-05-24] MEDS: Magnesium Sulfate/H2O 2 GM/50 ML PIGGYBACK IV (19:46)
[2022-05-24 19:57] LABS: Alanine Aminotransferase 50 U/L (0-40); Albumin Level 4.4 g/dL (3.5-5.0); Alkaline Phosphatase 97 U/L (39-117); Anion Gap 27 (12-20); Aspartate Amino Transferase 99 U/L (5-37); Blood Urea Nitrogen 8 mg/dL (9-16); Calcium 9.1 mg/dL (8.4-10.2); Carbon Dioxide 16 mmol/L (22-29); Chloride 102 mmol/L (96-108); Creatinine Clr Calc Pharmacy 101.7; Estimated Glomerular Filt Rate > 60; Ethanol 15 mg/dL; Glucose Random 195 mg/dL (60-115); Magnesium 1.4 mg/dL (1.6-2.6); Potassium 4.6 mmol/L (3.3-5.1); Sodium 140 mmol/L (135-145); Total Protein 7.6 g/dL (6.5-8.0)
--- NOTE | 2022-05-24 20:07 | PC.NURSE ---
Patient changed over to hospital attire. Patient put on tele and EKG done. h/o afib and etoh. Administered midazolam 1 ml and magnesium IV currently running. Patient came in with c/o dizziness (almost fell over upon standing), jitteriness, and chills. At this time patient is watching tv and is calm/cooperative. No apparent distress.
[2022-05-24 20:21] LABS: B Type Natriuretic Peptide 92 pg/mL (<100)
[2022-05-24 20:22] VITALS: BP 150/93; PULSE 109; RESP 18; TEMP 36.9; O2SAT 97
[2022-05-24 20:29] VITALS: PULSE 112
--- NOTE | 2022-05-24 20:33 | PC.NURSE ---
Patient denies pain.
--- NOTE | 2022-05-24 20:53 | PC.NURSE ---
Toan texted hospitalist to inform her that patient has stated interest in quitting alcohol cold turkey. [facility] protocol?
--- NOTE | 2022-05-24 20:54 | PM.IMHP ---
History of Present Illness Date of Service: 05/24/22 Chief Complaint: Tachycardia, This is a 56-year-old male with past medical history of AFib, alcoholic hepatitis, hypertension, alcoholic cardiomyopathy, presents to the hospital with complaints of acute palpitations dizziness, weakness, and nausea. Patient was visiting his mother in the hospital when he started having the symptoms. He denies any recent infection, reports that prior to this episode he has been doing well. He does drink alcohol almost daily. Sister at bedside reports history of withdrawals. Patient reports last drink was day prior. He denies missed any of his medications for his history of AFib. Patient otherwise denies any chest pain, no shortness of breath, no abdominal pain nausea vomiting, no diarrhea constipation, no urinary symptoms and no lower extremity edema. On arrival to the ED patient hemodynamically stable with a heart rate in the 150s otherwise blood pressure stable Labs are significant for WBC count of 9.4, hemoglobin of 15, hematocrit 42.6, magnesium of 1.4, AST of 99, ALT of 50, BNP of 92, troponin 14.7 EKG showed AFib with rapid ventricular response Chest x-ray showed unremarkable exam Patient received multiple doses of IV push Cardizem with no response, patient placed on Cardizem drip Review of Systems Review of Systems: Yes all other systems are reviewed and are negative [facility] Medical History Alcohol dependence with withdrawal Alcoholic hepatitis Atrial fibrillation with rapid ventricular response HTN (hypertension) Family History Father CAD (coronary artery disease) Surgical History No pertinent past surgical history Social History Household Members: None Housing: Apartment Do you presently have visiting nurse or other home services: No Unable to assess alcohol history related to: Unable to respond Alcohol intake: current Alcohol intake frequency: 3 or more drinks per day Alcohol type: hard liquor Patient Tobacco Use Status: Never used Tobacco Smoked in Last 30 Days: No Use of substances other than those prescribed or required for medical reasons: No Currently Displaying Signs/Symptoms of Drug Intoxication Withdrawal: No Have you been hit, kicked, punched, or otherwise hurt by someone within the past year? If so, by whom?: No Do you feel safe in your current relationship?: Yes Is there a partner from a previous relationship who is making you feel unsafe now?: No Are you made to feel afraid or neglected: No Advance Directives: No Advance Directives Information Provided: Yes Do you have thoughts of harming others: None Do you have a plan to hurt others: No Plan Recently lost weight without trying: No Eating poorly because of decreased appetite: No Nutrition Risks: On aspiration precautions Poor oral hygiene: No service: No Current occupational status: unemployed Meds Allergies Allergy/AdvReac Type Severity Reaction Status Date / Time No Known Allergies Allergy Verified 01/09/21 12:30 [No Known Allergies*] Active Medications: Current Medications Acetaminophen (Acetaminophen 325 Mg Tablet) 650 mg PO Q6H PRN PRN Reason: Pain, Mild (Pain Scale 1-3) Ondansetron HCl (Ondansetron Hcl 4 Mg/2 Ml Vial) 4 mg IVPUSH Q8H PRN PRN Reason: Nausea and Vomiting Sodium Chloride (0.9 % Sodium Chloride Flush 3 Ml Syringe) 3 ml IVFLUSH QSHIFT [facility] Physical Exam Vital Signs and Narrative: Vital Signs: Last Vital Signs Temp 98.4 F 05/24/22 20:22 Pulse 109 H 05/24/22 20:22 Resp 18 05/24/22 20:22 BP 150/93 H 05/24/22 20:22 Pulse Ox 97 05/24/22 20:22 O2 Del Method 05/24/22 20:22 BMI result Body Mass Index 28.7 Const: General: cooperative and no acute distress Orientation/consciousness: patient oriented x3 Eyes: General: appearance normal, both eyes and all related structures Pupils: Equal, round and reactive pupils present Resp: Effort & Inspection: normal respiratory effort, able to speak in complete sentences and abnormal respiratory pattern Auscultation: clear to auscultation bilaterally Cardio: Other: Tachycardia, abnormal rhythm GI: Palpation (GI): Soft to palpation Auscultation: normal bowel sounds Skin: General skin exam: no rashes or lesions noted Neuro: General: patient oriented x3 Cranial nerves: Yes Equal, round and reactive pupils present Cognition (Neuro): normal cognition Extrem: General: Yes normal to inspection and Yes no pedal edema Results Labs CBC and Chem 7: 05/24/22 19:18 05/24/22 19:18 Labs: Laboratory Results - last 24 hr 05/24/22 05/24/22 05/24/22 19:18 19:18 19:18 MCV 101.2 H MCH 35.6 H MCHC 35.2 RDW 12.4 Plt Count 124 L MPV 9.7 Immature Gran % (Auto) 0.3 Neut % (Auto) 86.4 H Lymph % (Auto) 5.6 L [place] % (Auto) 7.2 Eos % (Auto) 0.1 Baso % (Auto) 0.4 Lymph # (Auto) 0.5 L [place] # (Auto) 0.7 Eos # (Auto) 0.0 Baso # (Auto) 0.0 Abs Immat Gran (auto) 0.03 Absolute Neuts (auto) 8.1 Absolute Nucleated RBC 0.000 Nucleated RBC % (auto) 0.0 PT 11.1 INR 1.0 Anion Gap 27 H Estim Creat Clear Calc 101.7 Estimated GFR > 60 Random Glucose 195 H D Calcium 9.1 Magnesium 1.4 L* Total Bilirubin 2.0 H AST 99 H ALT 50 H Alkaline Phosphatase 97 Troponin I High Sens B-Natriuretic Peptide Total Protein 7.6 Albumin 4.4 D Ethyl Alcohol 15 05/24/22 05/24/22 19:18 19:18 MCV MCH MCHC RDW Plt Count MPV Immature Gran % (Auto) Neut % (Auto) Lymph % (Auto) Isabel[place] % (Auto) Eos % (Auto) Baso % (Auto) Lymph # (Auto) Isabel[place] # (Auto) Eos # (Auto) Baso # (Auto) Abs Immat Gran (auto) Absolute Neuts (auto) Absolute Nucleated RBC Nucleated RBC % (auto) PT INR Anion Gap Estim Creat Clear Calc Estimated GFR Random Glucose Calcium Magnesium Total Bilirubin AST ALT Alkaline Phosphatase Troponin I High Sens 14.7 B-Natriuretic Peptide 92 Total Protein Albumin Ethyl Alcohol Imaging Radiologist's Impressions: Impressions Chest X-Ray 05/24/22 19:38 IMPRESSION: Unremarkable examination. Assessment and Plan (1) Atrial fibrillation with rapid ventricular response: Status: Acute (2) Alcohol dependence with withdrawal: Status: Acute (3) Hypomagnesemia: Status: Acute Plan Patient with past medical history of AFib and alcohol dependence presents to the hospital with complaints of palpitations, dizziness, nausea found to have AFib with RVR # AFib with RVR - likely secondary to withdrawal - patient has no evidence of acute infection - started on Cardizem drip - continue home amiodarone, metoprolol, as well as Eliquis - cardiology consulted for possible adjustment in medications if needed versus cardioversion # alcohol dependence with withdrawal - experiencing some mild withdrawal at this time - will treat with phenobarb protocol - thiamine and folic acid supplement # hypomagnesemia - repleted - follow magnesium level # history of heart failure - secondary to alcohol abuse - on furosemide - appears to be well compensated, euvolemic - continue home furosemide # hypertension - stable - continue valsartan DVT prophylaxis: Eliquis Given patient's AFib with RVR requiring IV and patient require minimum tonight hospital stay for further management and evaluation Quality Stroke Does the patient have a stroke diagnosis?: No VTE Prior VTE?: No VTE Risk Level:: Medical - low VTE Device Contraindication: Treatment Not Indicated VTE Drug Contraindication: N/A - Med Ordered
--- NOTE | 2022-05-24 20:56 | PC.NURSE ---
Patient weighs 200 lbs (stated by patient) and admits to drinking 2 bottles of vodka a week on average.
[2022-05-24 20:57] VITALS: BP 168/92; PULSE 125; RESP 25; TEMP 36.5; O2SAT 97
[2022-05-24] MEDS: Thiamine HCL 100 MG TABLET PO (21:06)
[2022-05-24] MEDS: Folic Acid 1 MG TABLET PO (21:06)
--- NOTE | 2022-05-24 21:17 | PC.NURSE ---
Administered thiamine and folic acid per MAR.
[2022-05-24] MEDS: PHENobarbitaL sodium 130 MG/ML IM ONCE 292 MG IM (21:24)
[2022-05-24] MEDS: dilTIAZem HCL 125 MG in 0.9 % Sodium Chloride 100 ML 10 MG IVCONT (21:27)
--- NOTE | 2022-05-24 21:48 | PC.NURSE ---
Addendum entered by Sussy Villalba 05/24/22 22:11: Cardizem drip currently running at 10 mg/dL. Patient states he feels dizzy and nauseous. BP 155/101 and HR 136, RR 14. Will continue to monitor. Original Note: Cardizem drip currently running at 10 mg/dL. Patient states he feels dizzy and nauseous. BP 155/101 and HR 136, RR 14
--- NOTE | 2022-05-24 21:56 | PC.NURSE ---
This nurse gave report to LAKESHA Hoover. Patient to go to rm [id number].
--- NOTE | 2022-05-24 21:57 | PC.NURSE ---
Patient c/o nausea. Zofran administered per SEP.
[2022-05-24 22:38] VITALS: BP 135/95; PULSE 89; RESP 20; TEMP 37.1; O2SAT 98
--- NOTE | 2022-05-24 22:46 | PC.NURSE ---
Administered zofran per PRN at approx 1009.
[2022-05-24] MEDS: ondansetron HCL 4 MG/2 ML VIAL IVPUSH (23:11)
[2022-05-24 23:13] VITALS: BP 135/101; PULSE 82; RESP 18; TEMP 36.9; O2SAT 97
[2022-05-25] MEDS: PHENobarbitaL sodium 130 MG/ML VIAL IM Q3Hx2 219 MG IM ×2 (02:00→05:30)
[2022-05-25 03:21] VITALS: BP 135/85; PULSE 107; RESP 18; TEMP 36.8; O2SAT 97
[2022-05-25] MEDS: dilTIAZem HCL 125 MG in 0.9 % Sodium Chloride 100 ML 15 MG IVCONT (05:31)
[2022-05-25 06:12] LABS: MANUAL DIFF FLAG NO
[2022-05-25 06:25] LABS: Basophils Percent Auto 0.5 % (0-2); Eosinophils Absolute Auto 0.1 X10*3/uL (0.0-0.4); Eosinophils Percent Auto 0.8 % (0-4); Hematocrit 39.4 % (42.0-52.0); Hemoglobin 13.5 g/dl (14.0-18.0); Imm Gran Abs Auto 0.03 X10*3/uL (0.00-0.03); Imm Gran Pct Auto 0.5 % (0.0-0.4); Lymphocytes Absolute Auto 1.3 X10*3/uL (1.2-4.9); Lymphocytes Percent Auto 21.5 % (20-40); Mean Corpuscular HGB Conc 34.3 g/dl (31.0-36.0); Mean Corpuscular Hemoglobin 35.4 pg (27.0-33.0); Mean Corpuscular Volume 103.4 fL (80.0-98.0); Monocytes Absolute Auto 0.7 X10*3/uL (0.1-1.2); Monocytes Percent Auto 11.4 % (2-11); Neutrophils Absolute Auto 3.9 x10*3/uL (2.0-8.3); Neutrophils Percent Auto 65.3 % (45-73); Red Blood Count 3.81 X10*6/uL (4.60-5.80); Red Cell Distribution Width 12.4 % (11.0-16.0)
[2022-05-25 06:26] LABS: Platelet Count 90 X10*3/uL (160-400)
[2022-05-25 06:30] LABS: Anion Gap 14 (12-20); Blood Urea Nitrogen 5 mg/dL (9-16); Calcium 8.5 mg/dL (8.4-10.2); Carbon Dioxide 26 mmol/L (22-29); Chloride 101 mmol/L (96-108); Creatinine Clr Calc Pharmacy 119.5; Estimated Glomerular Filt Rate > 60; Glucose Random 129 mg/dL (60-115); Potassium 3.6 mmol/L (3.3-5.1); Sodium 137 mmol/L (135-145)
[2022-05-25 08:00] VITALS: BP 130/78; PULSE 80; RESP 20; TEMP 36.8; O2SAT 94
--- NOTE | 2022-05-25 08:04 | MHC.CARE ---
Please consult care team when medically cleared
--- NOTE | 2022-05-25 08:10 | PHA.MEDREC ---
Pharmacy Consult ? Medication Reconciliation Pharmacy has reviewed the medication reconciliation completed by Carie. Judy Lowe, PharmD
[2022-05-25 08:13] LABS: Magnesium 1.7 mg/dL (1.6-2.6)
--- NOTE | 2022-05-25 08:39 | MHC.CM.PN ---
CM met with Patient and his Sister at bedside. 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 Patient has met with the Care Team with previous hospitalizations and is requesting a Cared Tram Consult again, r/t ETOH. Home is the goal and CM has initiated and will follow for dc planning. Patient has a new PCP from [facility], who he is not established with and he has received Moderna/Covid vax x3.
[2022-05-25] MEDS: Folic Acid 1 MG TABLET PO (09:38)
[2022-05-25] MEDS: Apixaban 5 MG TABLET PO ×2 (09:38→20:22)
[2022-05-25] MEDS: Amiodarone HCL 200 MG TABLET PO (09:38)
[2022-05-25] MEDS: PHENobarbitaL 15 MG TABLET 45 MG PO ×2 (09:39→20:23)
[2022-05-25] MEDS: Furosemide 40 MG TABLET PO (09:39)
[2022-05-25] MEDS: Thiamine HCL 100 MG TABLET PO (09:39)
--- NOTE | 2022-05-25 10:14 | PM.CNCAR ---
History of Present Illness History of Present Illness Date of Service: 05/25/22 Chief complaint: A fib with RVR, alcohol withdrawal Narrative: This is a cardiology consultation regarding atrial fibrillation rapid rate. Patient has been seen mainly as an inpatient and does not come to the clinic. He has regular drinker, several times a week. He has a history of atrial fibrillation with rapid rates as well as cardiomyopathy. It seems that he has been cardioverted twice the last few months. In spite of this, no regular follow-up. Does not have much of understanding of the severity of his illness. It seems that this time he came because of his mother being admitted to the hospital. He was having some nonspecific weakness, palpitations dizziness extra and that led to hospitalization. He was found to have atrial fibrillation with rapid rates and then admitted to the hospital. Patient states that he feels fine and does not have any symptoms at this time. His sister is at the bedside. Otherwise, he states he is taking all his medications but he may miss them intermittently but overall unclear compliance. Continues to drink regularly. Review of Systems Review of Systems: Yes all other systems are reviewed and are negative Constitutional: Constitutional: Reports as per HPI, Reports fatigue and Reports malaise Eyes: Eyes: Reports as per HPI ENT: Reports as per HPI Cardiovascular: Cardiovascular: Reports as per HPI, Denies acrocyanosis, Denies cool extremities, Denies chest pain, Denies leg edema, Denies lightheadedness, Denies palpitations and Denies dyspnea Respiratory: Respiratory: Reports as per HPI, Reports no additional respiratory complaints and Denies dyspnea Gastrointestinal: Gastrointestinal: Reports as per HPI and Reports no additional gastrointestinal complaints Genitourinary: Genitourinary: Reports no additional male genitourinary complaints and Reports as per HPI Musculoskeletal: Musculoskeletal: Reports no additional musculoskeletal complaints and Reports as per HPI Integumentary/Breasts: Skin/Breast: Reports system reviewed and no additional complaints, except as docu Neurologic: Reports system reviewed and no additional complaints, except as documented and Reports as per HPI Psychiatric: Psychiatric: Reports no additional psychiatric complaints and Reports as per HPI Endocrine: Endocrine: Reports no additional endocrine complaints, Reports as per HPI, Reports fatigue and Denies palpitations Hematologic/Lymphatic: Hematologic/Lymphatic: Reports no additional hematologic/lymphatic complaints and Reports as per HPI Allergic/Immunologic: Allergic/Immunologic: Reports no additional allergic/immunologic complaints and Reports as per HPI [facility] Past Medical History Medical History Alcohol dependence with withdrawal Alcoholic hepatitis Atrial fibrillation with rapid ventricular response HTN (hypertension) Family History Family History (Updated 05/25/22 @ 10:17 by Justen Rojas MD) Father CAD (coronary artery disease) Mother Atrial fibrillation Surgical History Surgical History No pertinent past surgical history Social History Social History Household Members: None Housing: Apartment Do you presently have visiting nurse or other home services: No Unable to assess alcohol history related to: Unable to respond Alcohol intake: current Alcohol intake frequency: 3 or more drinks per day Alcohol type: hard liquor Patient Tobacco Use Status: Never used Tobacco Smoked in Last 30 Days: No Use of substances other than those prescribed or required for medical reasons: No Currently Displaying Signs/Symptoms of Drug Intoxication Withdrawal: No Have you been hit, kicked, punched, or otherwise hurt by someone within the past year? If so, by whom?: No Do you feel safe in your current relationship?: Yes Is there a partner from a previous relationship who is making you feel unsafe now?: No Are you made to feel afraid or neglected: No Advance Directives: No Advance Directives Information Provided: Yes Do you have thoughts of harming others: None Do you have a plan to hurt others: No Plan Recently lost weight without trying: No Eating poorly because of decreased appetite: No Nutrition Risks: On aspiration precautions Poor oral hygiene: No service: No Current occupational status: employed Meds Allergies Allergy/AdvReac Type Severity Reaction Status Date / Time No Known Allergies Allergy Verified 01/09/21 12:30 [No Known Allergies*] Active Medications: Current Medications Acetaminophen (Acetaminophen 325 Mg Tablet) 650 mg PO Q6H PRN PRN Reason: Pain, Mild (Pain Scale 1-3) Amiodarone HCl (Amiodarone Hcl 200 Mg Tablet) 200 mg PO DAILY [facility] Last Admin: 05/25/22 09:38 Dose: 200 mg Apixaban (Apixaban 5 Mg Tablet) 5 mg PO BID [facility] Last Admin: 05/25/22 09:38 Dose: 5 mg Digoxin (Digoxin 0.5 Mg/2 Ml Ampul) 0.25 mg IVPUSH Q6H [facility] Stop: 05/25/22 22:01 Docusate Sodium (Docusate Sodium 100 Mg Capsule) 100 mg PO DAILY PRN PRN Reason: Constipation Folic Acid (Folic Acid 1 Mg Tablet) 1 mg PO DAILY [facility] Last Admin: 05/25/22 09:38 Dose: 1 mg Furosemide (Furosemide 40 Mg Tablet) 40 mg PO DAILY [facility]; Protocol Last Admin: 05/25/22 09:39 Dose: 40 mg Metoprolol Succinate (Metoprolol Succinate Er 25 Mg Tab.Er.24h) 25 mg PO DAILY [facility]; Protocol Ondansetron HCl (Ondansetron Hcl 4 Mg/2 Ml Vial) 4 mg IVPUSH Q8H PRN PRN Reason: Nausea and Vomiting Last Admin: 05/24/22 23:11 Dose: 4 mg Pharmacy Consult (Consult Rx Etoh Phenob Im/Po) 1 each MISCELLANE ONCE PRN; Protocol PRN Reason: Consult order Pharmacy Consult (Consult Rx Perform Med Rec) 1 each MISCELLANE ONCE PRN PRN Reason: Consult order Phenobarbital (Phenobarbital 15 Mg Tablet) 45 mg PO BID [facility] Stop: 05/26/22 21:01 Last Admin: 05/25/22 09:39 Dose: 45 mg Phenobarbital (Phenobarbital 30 Mg Tablet) 30 mg PO BID [facility] Stop: 05/28/22 21:01 Phenobarbital (Phenobarbital 15 Mg Tablet) 15 mg PO DAILY [facility] Stop: 05/30/22 09:01 Sodium Chloride (0.9 % Sodium Chloride Flush 3 Ml Syringe) 3 ml IVFLUSH QSHIFT [facility] Last Admin: 05/25/22 09:38 Dose: Not Given Thiamine HCl (Thiamine Hcl 100 Mg Tablet) 100 mg PO DAILY [facility] Last Admin: 05/25/22 09:39 Dose: 100 mg Physical Exam Vital Signs: Vital Signs: Last Vital Signs Temp 98.3 F 05/25/22 08:00 Pulse 80 05/25/22 08:00 Resp 20 05/25/22 08:00 BP 130/78 05/25/22 08:00 Pulse Ox 94 05/25/22 08:00 O2 Del Method 05/25/22 08:00 BMI result Body Mass Index 28.7 Const: General: comfortable and no acute distress Orientation/consciousness: patient oriented x3 HEENT: Other: Unremarkable Head: Yes normal to inspection Neck: Neck: Yes normal visual inspection Chest: Chest palpation & inspection: normal inspection of the chest Resp: Auscultation: clear to auscultation bilaterally Cardio: Palpation: normal PMI Heart sounds: S1 normal heart sound present, S2 normal heart sound present, no gallops, no murmurs and no rubs GI: Palpation (GI): Soft to palpation Back/Spine/Pelvis: Other: unremarkable Skin: General skin exam: no rashes or lesions noted Neuro: General: patient oriented x3 Extrem: General: Yes normal to inspection Psych: Mental Status: mental status grossly normal Objective Labs and Meds Result diagrams: 05/25/22 05:59 05/25/22 05:59 Lab results: Laboratory Results - last 24 hr 05/24/22 05/24/22 05/24/22 19:18 19:18 19:18 WBC 9.4 RBC 4.21 L Hgb 15.0 Hct 42.6 MCV 101.2 H MCH 35.6 H MCHC 35.2 RDW 12.4 Plt Count 124 L MPV 9.7 Immature Gran % (Auto) 0.3 Neut % (Auto) 86.4 H Lymph % (Auto) 5.6 L [place] % (Auto) 7.2 Eos % (Auto) 0.1 Baso % (Auto) 0.4 Lymph # (Auto) 0.5 L [place] # (Auto) 0.7 Eos # (Auto) 0.0 Baso # (Auto) 0.0 Abs Immat Gran (auto) 0.03 Absolute Neuts (auto) 8.1 Absolute Nucleated RBC 0.000 Nucleated RBC % (auto) 0.0 PT 11.1 INR 1.0 Sodium 140 Potassium 4.6 D Chloride 102 Carbon Dioxide 16 L Anion Gap 27 H BUN 8 L Creatinine 0.94 Estim Creat Clear Calc 101.7 Estimated GFR > 60 Random Glucose 195 H D Calcium 9.1 Magnesium 1.4 L* Total Bilirubin 2.0 H AST 99 H ALT 50 H Alkaline Phosphatase 97 Troponin I High Sens B-Natriuretic Peptide Total Protein 7.6 Albumin 4.4 D Ethyl Alcohol 15 05/24/22 05/24/22 05/25/22 19:18 19:18 05:59 WBC 6.0 RBC 3.81 L Hgb 13.5 L Hct 39.4 L MCV 103.4 H MCH 35.4 H MCHC 34.3 RDW 12.4 Plt Count 90 L D MPV 10.0 Immature Gran % (Auto) 0.5 H Neut % (Auto) 65.3 Lymph % (Auto) 21.5 [place] % (Auto) 11.4 H Eos % (Auto) 0.8 Baso % (Auto) 0.5 Lymph # (Auto) 1.3 [place] # (Auto) 0.7 Eos # (Auto) 0.1 Baso # (Auto) 0.0 Abs Immat Gran (auto) 0.03 Absolute Neuts (auto) 3.9 Absolute Nucleated RBC 0.000 Nucleated RBC % (auto) 0.0 PT INR Sodium Potassium Chloride Carbon Dioxide Anion Gap BUN Creatinine Estim Creat Clear Calc Estimated GFR Random Glucose Calcium Magnesium Total Bilirubin AST ALT Alkaline Phosphatase Troponin I High Sens 14.7 B-Natriuretic Peptide 92 Total Protein Albumin Ethyl Alcohol 05/25/22 05:59 WBC RBC Hgb Hct MCV MCH MCHC RDW Plt Count MPV Immature Gran % (Auto) Neut % (Auto) Lymph % (Auto) [place] % (Auto) Eos % (Auto) Baso % (Auto) Lymph # (Auto) [place] # (Auto) Eos # (Auto) Baso # (Auto) Abs Immat Gran (auto) Absolute Neuts (auto) Absolute Nucleated RBC Nucleated RBC % (auto) PT INR Sodium 137 Potassium 3.6 D Chloride 101 Carbon Dioxide 26 Anion Gap 14 BUN 5 L Creatinine 0.80 Estim Creat Clear Calc 119.5 Estimated GFR > 60 Random Glucose 129 H Calcium 8.5 D Magnesium 1.7 Total Bilirubin AST ALT Alkaline Phosphatase Troponin I High Sens B-Natriuretic Peptide Total Protein Albumin Ethyl Alcohol ECG Interpretation: EKG with atrial fibrillation at 01:52/Min with some aberrantly conducted complexes. Nonspecific ST-T changes. Imaging Radiologist's impression: Impressions Chest X-Ray 05/24/22 19:38 IMPRESSION: Unremarkable examination. Assessment and Plan (1) Atrial fibrillation with rapid ventricular response: Status: Acute (2) Cardiomyopathy: Status: Acute (3) Alcohol intoxication: Status: Acute (4) Alcohol dependence with withdrawal: Status: Acute Plan Labs reviewed. Cardiac BNP is actually within normal range and much improved from before. High sensitivity troponins also within range. LFT abnormality likely related to his drinking. Alcohol levels are elevated. Last Holter from January shows sinus rhythm as well as intermittent atrial fibrillation/rapid rates. Frequent PVCs. LVEF on the CORTNEY was 10-15%. At this time, he is on a Cardizem drip. We will try to wean that and stop. Increase the dose of oral beta-blockers. Okay to use amiodarone for rate control at this time. Can add digoxin too with load. Hold off valsartan till heart rate is controlled and also blood pressure is stable. Continue with anticoagulation. Explain the severity of illness including likelihood of from continue drinking. Still not sure how much he understands, as he kept talking about getting discharged. Sister also nearby and was also part of the conversation but she seems to understand much better. Strongly advised him to quit drinking. Procedures Date of Service Date of Service: 05/25/22
[2022-05-25] MEDS: Metoprolol Succinate ER 25 MG TAB.ER.24H PO (10:38)
[2022-05-25] MEDS: Digoxin 0.5 MG/2 ML AMPUL 0.25 MG IVPUSH ×3 (10:38→21:37)
[2022-05-25 11:13] VITALS: BP 135/90; PULSE 102; RESP 20; TEMP 36.7; O2SAT 95
--- NOTE | 2022-05-25 12:36 | MHC.RECOVRN ---
Met with pt in 484 to discuss alcohol use. Upon entering pts room, pt sitting in bed, awake, alert, easily engages in conversation. Does not appear to be uncomfortable or experiencing withdrawal. Pt reports drinking a bottle a week of vodka for years. Pt reports amount has increased and decreased at different times related to life stressors, in particular. Pt states it hasn't caused me to lose anything except my and kids. Pt reports divorce occurred in 1999 due to pts alcohol use. Pt reports alcohol use, up until recently, has not interfered with employment; pt has been missing work and decided to resign. Pt reports alcohol use has not caused any legal issues. Pt reports attending AA years ago and did not find it helpful. Denies having other tx for AUD. Pt is concerned regarding health and would like to abstain from alcohol. Pt provided with recovery resources to peruse since pts sister is here for a visit, t/w will follow up at a later time. Denies questions or concerns.
--- NOTE | 2022-05-25 13:13 | P.PNIM_ITS ---
Subjective Subjective Date of Service: 05/25/22 Interval History: feeling better this morning denies chest pain, no palpitation, no tremors, denies headache lightheadedness or dizziness tele monitor showed persistent atrial fibrillation with RVR around 110- 115, per as per patient his compliant with home medications including metoprolol, valsartan amiodarone and Eliquis currently on IV Cardizem drip. Review of Systems General no headache no dizziness no fever chills. CVS no chest pain, no palpitation. Respiratory no cough, no sob Gastrointestinal no nausea no vomiting, no abdominal pain Review of Systems: Yes all other systems are reviewed and are negative Physical Exam Vital Signs: Vital Signs: Last Vital Signs Temp 98.0 F 05/25/22 11:13 Pulse 102 H 05/25/22 11:13 Resp 20 05/25/22 11:13 BP 135/90 H 05/25/22 11:13 Pulse Ox 95 05/25/22 11:13 O2 Del Method 05/25/22 11:13 BMI result Body Mass Index 28.7 Const: Other: General resting comfortably in no acute distress. Neck supple no JVD. CVS irregular rate rhythm, Respiratory lungs clear to auscultation, no respiratory distress, no wheeze, no rhonchi. Gastrointestinal abdomen soft, nontender, bowel sounds audible, no guarding , no rigidity. Extremities no edema. no tremors Neuro nonfocal patient moving all 4 extremity speech clear. Skin no rash psych appropriate affect Objective Data Active Medications Acetaminophen (Acetaminophen 325 Mg Tablet) 650 mg PO Q6H PRN PRN Reason: Pain, Mild (Pain Scale 1-3) Amiodarone HCl (Amiodarone Hcl 200 Mg Tablet) 200 mg PO DAILY [facility] Last Admin: 05/25/22 09:38 Dose: 200 mg Documented By: SEBASTIAN Apixaban (Apixaban 5 Mg Tablet) 5 mg PO BID [facility] Last Admin: 05/25/22 09:38 Dose: 5 mg Documented By: SEBASTIAN Digoxin (Digoxin 0.5 Mg/2 Ml Ampul) 0.25 mg IVPUSH Q6H [facility] Stop: 05/25/22 22:01 Last Admin: 05/25/22 10:38 Dose: 0.25 mg Documented By: SEBASTIAN Docusate Sodium (Docusate Sodium 100 Mg Capsule) 100 mg PO DAILY PRN PRN Reason: Constipation Folic Acid (Folic Acid 1 Mg Tablet) 1 mg PO DAILY [facility] Last Admin: 05/25/22 09:38 Dose: 1 mg Documented By: SEBASTIAN Furosemide (Furosemide 40 Mg Tablet) 40 mg PO DAILY [facility]; Protocol Last Admin: 05/25/22 09:39 Dose: 40 mg Documented By: SEBASTIAN Metoprolol Succinate (Metoprolol Succinate Er 25 Mg Tab.Er.24h) 25 mg PO DAILY [facility]; Protocol Last Admin: 05/25/22 10:38 Dose: 25 mg Documented By: SEBASTIAN Ondansetron HCl (Ondansetron Hcl 4 Mg/2 Ml Vial) 4 mg IVPUSH Q8H PRN PRN Reason: Nausea and Vomiting Last Admin: 05/24/22 23:11 Dose: 4 mg Documented By: ANNABELLA Pharmacy Consult (Consult Rx Etoh Phenob Im/Po) 1 each MISCELLANE ONCE PRN; Protocol PRN Reason: Consult order Pharmacy Consult (Consult Rx Perform Med Rec) 1 each MISCELLANE ONCE PRN PRN Reason: Consult order Phenobarbital (Phenobarbital 15 Mg Tablet) 45 mg PO BID [facility] Stop: 05/26/22 21:01 Last Admin: 05/25/22 09:39 Dose: 45 mg Documented By: SEBASTIAN Phenobarbital (Phenobarbital 30 Mg Tablet) 30 mg PO BID [facility] Stop: 05/28/22 21:01 Phenobarbital (Phenobarbital 15 Mg Tablet) 15 mg PO DAILY [facility] Stop: 05/30/22 09:01 Sodium Chloride (0.9 % Sodium Chloride Flush 3 Ml Syringe) 3 ml IVFLUSH QSHIFT [facility] Last Admin: 05/25/22 09:38 Dose: Not Given Documented By: SEBASTIAN Non-Admin Reason: IV Running Thiamine HCl (Thiamine Hcl 100 Mg Tablet) 100 mg PO DAILY [facility] Last Admin: 05/25/22 09:39 Dose: 100 mg Documented By: SEBASTIAN Labs CBC & Chem 7: 05/25/22 05:59 05/25/22 05:59 Labs: Laboratory Results - last 24 hr 05/24/22 05/24/22 05/24/22 19:18 19:18 19:18 MCV 101.2 H MCH 35.6 H MCHC 35.2 RDW 12.4 Plt Count 124 L MPV 9.7 Immature Gran % (Auto) 0.3 Neut % (Auto) 86.4 H Lymph % (Auto) 5.6 L [place] % (Auto) 7.2 Eos % (Auto) 0.1 Baso % (Auto) 0.4 Lymph # (Auto) 0.5 L [place] # (Auto) 0.7 Eos # (Auto) 0.0 Baso # (Auto) 0.0 Abs Immat Gran (auto) 0.03 Absolute Neuts (auto) 8.1 Absolute Nucleated RBC 0.000 Nucleated RBC % (auto) 0.0 PT 11.1 INR 1.0 Anion Gap 27 H Estim Creat Clear Calc 101.7 Estimated GFR > 60 Random Glucose 195 H D Calcium 9.1 Magnesium 1.4 L* Total Bilirubin 2.0 H AST 99 H ALT 50 H Alkaline Phosphatase 97 Troponin I High Sens B-Natriuretic Peptide Total Protein 7.6 Albumin 4.4 D Ethyl Alcohol 15 05/24/22 05/24/22 05/25/22 19:18 19:18 05:59 MCV 103.4 H MCH 35.4 H MCHC 34.3 RDW 12.4 Plt Count 90 L D MPV 10.0 Immature Gran % (Auto) 0.5 H Neut % (Auto) 65.3 Lymph % (Auto) 21.5 [place] % (Auto) 11.4 H Eos % (Auto) 0.8 Baso % (Auto) 0.5 Lymph # (Auto) 1.3 [place] # (Auto) 0.7 Eos # (Auto) 0.1 Baso # (Auto) 0.0 Abs Immat Gran (auto) 0.03 Absolute Neuts (auto) 3.9 Absolute Nucleated RBC 0.000 Nucleated RBC % (auto) 0.0 PT INR Anion Gap Estim Creat Clear Calc Estimated GFR Random Glucose Calcium Magnesium Total Bilirubin AST ALT Alkaline Phosphatase Troponin I High Sens 14.7 B-Natriuretic Peptide 92 Total Protein Albumin Ethyl Alcohol 05/25/22 05:59 MCV MCH MCHC RDW Plt Count MPV Immature Gran % (Auto) Neut % (Auto) Lymph % (Auto) [place] % (Auto) Eos % (Auto) Baso % (Auto) Lymph # (Auto) [place] # (Auto) Eos # (Auto) Baso # (Auto) Abs Immat Gran (auto) Absolute Neuts (auto) Absolute Nucleated RBC Nucleated RBC % (auto) PT INR Anion Gap 14 Estim Creat Clear Calc 119.5 Estimated GFR > 60 Random Glucose 129 H Calcium 8.5 D Magnesium 1.7 Total Bilirubin AST ALT Alkaline Phosphatase Troponin I High Sens B-Natriuretic Peptide Total Protein Albumin Ethyl Alcohol Assessment and Plan (1) Hypomagnesemia: Status: Acute (2) Cardiomyopathy: Status: Acute (3) Alcohol dependence with withdrawal: Status: Acute (4) Atrial fibrillation with rapid ventricular response: Status: Acute (5) Alcoholic hepatitis: Status: Acute Plan Patient with past medical history of AFib and alcohol dependence, alcoholic hepatitis presents to the hospital with complaints of palpitations, dizziness, nausea found to have AFib with RVR # AFib with RVR - likely secondary to withdrawal - will DC IV Cardizem drip continue amiodarone, increase dose of metoprolol to 25 mg, continue Eliquis and will load with digoxin as per cardio recommendation - recent echo showed an EF 10-15%, no indication for cardioversion - follow clinical course # alcohol dependence with withdrawal patient minimizing alcohol intake, as per sister patient drinks 2-3 bottles of vodka a week - continue phenobarb protocol,thiamine and folic acid supplement care team consult obtained # Acute anion gap metabolic acidosis due to alcohol resolved # hypomagnesemia - repleted repeat magnesium 1.7 will give by mouth magnesium # likely alcoholic cardiomyopathy EF 10-15% no acute decompensation continue home dose of Lasix and valsartan # hypertension - stable, continue valsartan # alcoholic hepatitis elevated LFTs due to alcohol abuse no abdominal pain no nausea no vomiting no further workup strongly recommend to abstain from alcohol DVT prophylaxis: Eliquis Given patient's AFib with RVR requiring IV digoxin loading dose and alcohol withdrawal patient will need continued inpatient hospitalization Quality Stroke Does the patient have a stroke diagnosis?: No VTE Prior VTE?: No VTE Risk Level:: Medical - low VTE Device Contraindication: Treatment Not Indicated VTE Drug Contraindication: N/A - Med Ordered
[2022-05-25] MEDS: 0.9 % Sodium Chloride Flush 3 ML SYRINGE IVFLUSH ×2 (15:20→23:20)
[2022-05-25 15:47] VITALS: BP 128/86; PULSE 81; RESP 18; TEMP 36.6; O2SAT 96
[2022-05-25 20:00] VITALS: BP 134/72; PULSE 78; RESP 18; TEMP 37.1; O2SAT 95
[2022-05-25] MEDS: Valsartan 40 MG TABLET PO (20:22)
[2022-05-25] MEDS: Metoprolol Tartrate 5 MG/5 ML VIAL IVPUSH (23:15)
[2022-05-26] VITALS: BP 124/85; PULSE 74; RESP 15; TEMP 36.8; O2SAT 95
[2022-05-26 03:00] VITALS: BP 138/87; PULSE 114; RESP 17; TEMP 36.7; O2SAT 98
[2022-05-26 07:15] VITALS: BP 132/83; PULSE 140; RESP 20; TEMP 36.3; O2SAT 97
[2022-05-26] MEDS: PHENobarbitaL 15 MG TABLET 45 MG PO ×2 (09:08→20:06)
[2022-05-26] MEDS: Apixaban 5 MG TABLET PO ×2 (09:08→20:06)
[2022-05-26] MEDS: Metoprolol Succinate ER 25 MG TAB.ER.24H PO (09:09)
[2022-05-26] MEDS: 0.9 % Sodium Chloride Flush 3 ML SYRINGE IVFLUSH ×2 (09:09→20:05)
[2022-05-26] MEDS: Folic Acid 1 MG TABLET PO (09:09)
[2022-05-26] MEDS: Furosemide 40 MG TABLET PO (09:09)
[2022-05-26] MEDS: Amiodarone HCL 200 MG TABLET PO (09:09)
[2022-05-26] MEDS: Thiamine HCL 100 MG TABLET PO (09:09)
[2022-05-26] MEDS: Magnesium Oxide 400 MG TABLET PO (09:09)
[2022-05-26] MEDS: Valsartan 40 MG TABLET PO ×2 (09:34→20:06)
--- NOTE | 2022-05-26 09:58 | PM.PNCARD ---
Subjective Subjective Date of Service: 05/26/22 Interval history: He states that he is feeling fine. Denies any cardiac symptoms at all. No angina or shortness of breath or palpitations or in fact anything of concern. Review of Systems Review of Systems Yes all other systems are reviewed and are negative Constitutional: Reports as per HPI Eyes: Reports as per HPI Reports as per HPI Cardiovascular: Reports as per HPI, Denies acrocyanosis, Denies cool extremities, Denies chest pain, Denies leg edema, Denies lightheadedness, Denies palpitations and Denies dyspnea Respiratory: Reports as per HPI, Reports no additional respiratory complaints and Denies dyspnea Gastrointestinal: Reports as per HPI and Reports no additional gastrointestinal complaints Genitourinary: Reports no additional male genitourinary complaints and Reports as per HPI Musculoskeletal: Reports no additional musculoskeletal complaints and Reports as per HPI Skin/Breast: Reports system reviewed and no additional complaints, except as docu Reports system reviewed and no additional complaints, except as documented and Reports as per HPI Psychiatric: Reports no additional psychiatric complaints and Reports as per HPI Endocrine: Reports no additional endocrine complaints, Reports as per HPI and Denies palpitations Hematologic/Lymphatic: Reports no additional hematologic/lymphatic complaints and Reports as per HPI Allergic/Immunologic: Reports no additional allergic/immunologic complaints and Reports as per HPI Physical Exam Vital Signs: Last Vital Signs Temp 97.4 F 05/26/22 07:15 Pulse 140 H 05/26/22 07:15 Resp 20 05/26/22 07:15 BP 132/83 05/26/22 07:15 Pulse Ox 97 05/26/22 07:15 O2 Del Method 05/26/22 07:15 BMI result Body Mass Index 28.7 Const General: comfortable and no acute distress Orientation/consciousness: patient oriented x3 HEENT Other: Unremarkable Head: Yes normal to inspection Neck Neck: Yes normal visual inspection Chest Chest palpation & inspection: normal inspection of the chest Resp Auscultation: clear to auscultation bilaterally Cardio Palpation: normal PMI Heart sounds: S1 normal heart sound present, S2 normal heart sound present, no gallops, no murmurs and no rubs GI Palpation (GI): Soft to palpation Back/Spine/Pelvis Other: unremarkable Skin General skin exam: no rashes or lesions noted Neuro General: patient oriented x3 Extrem General: Yes normal to inspection Psych Mental Status: mental status grossly normal Objective Labs and Meds Result diagrams: 05/25/22 05:59 05/25/22 05:59 Progress Note: A&P Assessment and plan (1) Atrial fibrillation with rapid ventricular response: Status: Acute (2) Cardiomyopathy: Status: Acute (3) Alcohol intoxication: Status: Acute (4) Alcohol dependence with withdrawal: Status: Acute Plan Overall, he remains in atrial fibrillation with rapid rate at this time, but clinically denies symptoms. Also he is on lot of denial that he is actually sick. He states that he is being kept in the hospital for absolutely no reason. Try to explain as much as possible that he has significant cardiac issues but he is still in denial. He is insisting on going home. Tried to explain to him that that could lead to but he would not listen. Discussed with Dr. Khan about this. With regard to medications, we can go up on the beta-joan dosing. Can hold valsartan while be doing this. Additional dose of digoxin. Continue with amiodarone for rate control rather. He has already failed 2 cardioversions, continues to drink alcohol and also not very compliant and hence not suitable for another cardioversion. If he decides to stay in the hospital, we can follow-up. Time Spent With Patient Time: Total time spent is greater than 50% in coordination of care (as documented) at patient's floor/unit and/or counseling patient: 35min. Progress Note: Quality Stroke Does the patient have a stroke diagnosis?: No Procedures Date of Service Date of Service: 05/26/22
[2022-05-26 12:00] VITALS: BP 132/59; PULSE 105; RESP 20; TEMP 36.5; O2SAT 95
--- NOTE | 2022-05-26 13:06 | MHC.RECOVRN ---
Met with pt, along with sister, in 484 to follow up regarding alcohol use. Discussed recovery resources and supports, including medications for alcohol use disorder. Pt is interested in LETICIA (specifically Vivitrol) and initiating care at the [facility]. Appt made for 06/01 at 10AM. Pt denies questions or concerns at this time. Discussed with Andressa Jones APRN.
[2022-05-26 15:02] VITALS: BP 136/77; PULSE 95; RESP 18; TEMP 36.3; O2SAT 94
--- NOTE | 2022-05-26 16:07 | P.PNIM_ITS ---
Subjective Subjective Date of Service: 05/26/22 Interval History: Initially wanted to sign out AMA however reconsidered and willing to stay. No cardiac complaints Review of Systems Denies chest pain Denies shortness of breath Denies nausea vomiting diarrhea Denies fever chills Physical Exam Vital Signs: Vital Signs: Last Vital Signs Temp 97.4 F 05/26/22 15:02 Pulse 95 05/26/22 15:02 Resp 18 05/26/22 15:02 BP 136/77 05/26/22 15:02 Pulse Ox 94 05/26/22 15:02 O2 Del Method 05/26/22 15:02 BMI result Body Mass Index 28.7 Const: Other: No acute issues overnight Resp: Other: Clear to auscultation bilaterally no rales rhonchi or wheezes Cardio: Other: No S4; positive S1-S2; no S3 murmurs rubs or gallops .... Irregularly irregular GI: Other: Soft nontender nondistended normoactive bowel sounds Extrem: Other: No edema bilateral Objective Data Active Medications Acetaminophen (Acetaminophen 325 Mg Tablet) 650 mg PO Q6H PRN PRN Reason: Pain, Mild (Pain Scale 1-3) Amiodarone HCl (Amiodarone Hcl 200 Mg Tablet) 200 mg PO DAILY [facility] Last Admin: 05/26/22 09:09 Dose: 200 mg Documented By: LUCIO Apixaban (Apixaban 5 Mg Tablet) 5 mg PO BID [facility] Last Admin: 05/26/22 09:08 Dose: 5 mg Documented By: LUCIO Docusate Sodium (Docusate Sodium 100 Mg Capsule) 100 mg PO DAILY PRN PRN Reason: Constipation Folic Acid (Folic Acid 1 Mg Tablet) 1 mg PO DAILY [facility] Last Admin: 05/26/22 09:09 Dose: 1 mg Documented By: LUCIO Furosemide (Furosemide 40 Mg Tablet) 40 mg PO DAILY [facility]; Protocol Last Admin: 05/26/22 09:09 Dose: 40 mg Documented By: LUCIO Magnesium Oxide (Magnesium Oxide 400 Mg Tablet) 400 mg PO DAILY [facility] Last Admin: 05/26/22 09:09 Dose: 400 mg Documented By: LUCIO Metoprolol Succinate (Metoprolol Succinate Er 25 Mg Tab.Er.24h) 25 mg PO DAILY [facility]; Protocol Last Admin: 05/26/22 09:09 Dose: 25 mg Documented By: LUCIO Ondansetron HCl (Ondansetron Hcl 4 Mg/2 Ml Vial) 4 mg IVPUSH Q8H PRN PRN Reason: Nausea and Vomiting Last Admin: 05/24/22 23:11 Dose: 4 mg Documented By: ANNABELLA Pharmacy Consult (Consult Rx Etoh Phenob Im/Po) 1 each MISCELLANE ONCE PRN; Protocol PRN Reason: Consult order Pharmacy Consult (Consult Rx Perform Med Rec) 1 each MISCELLANE ONCE PRN PRN Reason: Consult order Phenobarbital (Phenobarbital 15 Mg Tablet) 45 mg PO BID [facility] Stop: 05/26/22 21:01 Last Admin: 05/26/22 09:08 Dose: 45 mg Documented By: LUCIO Phenobarbital (Phenobarbital 30 Mg Tablet) 30 mg PO BID [facility] Stop: 05/28/22 21:01 Phenobarbital (Phenobarbital 15 Mg Tablet) 15 mg PO DAILY [facility] Stop: 05/30/22 09:01 Sodium Chloride (0.9 % Sodium Chloride Flush 3 Ml Syringe) 3 ml IVFLUSH QSHIFT [facility] Last Admin: 05/26/22 09:09 Dose: 3 ml Documented By: LUCIO Thiamine HCl (Thiamine Hcl 100 Mg Tablet) 100 mg PO DAILY [facility] Last Admin: 05/26/22 09:09 Dose: 100 mg Documented By: LUCIO Valsartan (Valsartan 40 Mg Tablet) 40 mg PO BID [facility]; Protocol Last Admin: 05/26/22 09:34 Dose: 40 mg Documented By: LUCIO Labs CBC & Chem 7: 05/25/22 05:59 05/25/22 05:59 Assessment and Plan (1) Atrial fibrillation with rapid ventricular response: Status: Acute (2) Alcohol dependence with withdrawal: Status: Acute (3) HTN (hypertension): Status: Acute Plan Patient with past medical history of AFib and alcohol dependence, alcoholic hepatitis presents to the hospital with complaints of palpitations, dizziness, nausea found to have AFib with RVR; rate controlled improved this afternoon 1.AFib with RVR -rate more controlled this afternoon -amiodarone/increase metoprolol to 50 BID -will hold on dig at this time -recent echo showed an EF 10-15%, no indication for cardioversion -follow clinical course... If rapid ventricular response will dig load 2.Alcohol dependence..no signs of withdraw - continue phenobarb protocol,thiamine and folic acid supplement 3.Hypertension -acceptable control on current therapies -adjust as indicated DVT prophylaxis: Eliquis Full code Patient will require ongoing hospitalization to document rate control and treat for alcohol withdrawal Quality Stroke Does the patient have a stroke diagnosis?: No VTE Prior VTE?: No VTE Risk Level:: Medical - low VTE Device Contraindication: Treatment Not Indicated VTE Drug Contraindication: N/A - Med Ordered
[2022-05-26 19:08] VITALS: BP 124/65; PULSE 94; RESP 18; TEMP 36.5; O2SAT 98
[2022-05-27] VITALS: BP 119/81; PULSE 75; RESP 14; TEMP 36.7; O2SAT 95
[2022-05-27] MEDS: 0.9 % Sodium Chloride Flush 3 ML SYRINGE IVFLUSH ×2 (00:15→09:19)
[2022-05-27 03:33] VITALS: BP 116/82; PULSE 65; RESP 16; TEMP 36.6; O2SAT 95
[2022-05-27 07:49] VITALS: BP 134/60; PULSE 98; RESP 18; TEMP 36.5; O2SAT 98
[2022-05-27] MEDS: Apixaban 5 MG TABLET PO (09:19)
[2022-05-27] MEDS: Amiodarone HCL 200 MG TABLET PO (09:19)
[2022-05-27] MEDS: Metoprolol Succinate ER 25 MG TAB.ER.24H PO (09:19)
[2022-05-27] MEDS: PHENobarbitaL 30 MG TABLET PO (09:19)
[2022-05-27] MEDS: Magnesium Oxide 400 MG TABLET PO (09:19)
[2022-05-27] MEDS: Thiamine HCL 100 MG TABLET PO (09:19)
[2022-05-27] MEDS: Folic Acid 1 MG TABLET PO (09:19)
[2022-05-27] MEDS: Furosemide 40 MG TABLET PO (09:19)
[2022-05-27] MEDS: Valsartan 40 MG TABLET PO (09:19)
--- NOTE | 2022-05-27 11:27 | PM.DS ---
DS: Providers Provider Date of Service: 05/27/22 Date of admission: 05/24/22 20:52 Date of discharge: 05/27/22 Primary care physician: Jerri Bennett MD Consults: 05/24/22 20:51 Consult to Cardiology Routine Consulting Provider: Maximino Baker Reason for consultation: A fib w rvr Has provider been notified: No 05/25/22 07:53 Consult to Care Team Routine Comment: Reason for consultation: etoh DS: Diagnosis Discharge Diagnosis (1) Atrial fibrillation with rapid ventricular response: Status: Acute (2) Alcohol dependence with withdrawal: Status: Acute (3) HTN (hypertension): Status: Acute (4) Cardiomyopathy: Status: Acute (5) Alcoholic hepatitis: Status: Acute DS: Summary Hospital Course Hospital Course: 56-year-old male with past medical history of AFib, alcoholic hepatitis, hypertension, alcoholic cardiomyopathy, presents to the hospital with complaints of acute palpitations dizziness, weakness, and nausea.? Patient was visiting his mother in the hospital when he started having the symptoms.? He denies any recent infection, reports that prior to this episode he has been doing well.? He does drink alcohol almost daily.? Sister at bedside reports history of withdrawals.? Patient reports last drink was day prior.? He denies missed any of his medications for his history of AFib.? Patient otherwise denies any chest pain, no shortness of breath, no abdominal pain nausea vomiting, no diarrhea constipation, no urinary symptoms and no lower extremity edema.? On arrival to the ED patient hemodynamically stable with a heart rate in the 150s otherwise blood pressure stable Labs are significant for WBC count of 9.4, hemoglobin of 15, hematocrit 42.6, magnesium of 1.4, AST of 99, ALT of 50, BNP of 92, troponin 14.7 EKG showed AFib with rapid ventricular response Chest x-ray showed unremarkable exam Hospital course Admitted to telemetry; seen in consultation by Cardiology and Sanjuana navarro D seed in favor of oral Cardizem. Digoxin was added. Metoprolol was increased to 25 daily. Valsartan continued at outpatient dosing. Of note patient was also in mild alcohol withdrawal upon arrival and was treated with phenobarb protocol. On the day prior to discharge, patient was adamant about signing out AMA however with convinced to stay 1 more day. Over the last 3 days his CIWA has come down to 1 at this point time he is medically stable for discharge. Med reviewed with Dr. Rojas; will follow-up in office. Appointment given to patient Time Spent with Patient Time attestation: Total time spent providing and/or coordinating discharge services: Discharge coordination time: Greater than 30 minutes Quality: Safe Use of Opioids Does Pt have an Active Cancer Diagnosis on the Problem List?: No Quality: Stroke Does the patient have a stroke diagnosis?: No Physical Exam Vital Signs: Vital Signs: Last Vital Signs Temp 97.7 F 05/27/22 07:49 Pulse 98 05/27/22 07:49 Resp 18 05/27/22 07:49 BP 134/60 05/27/22 07:49 Pulse Ox 98 05/27/22 07:49 O2 Del Method 05/27/22 07:49 BMI result Body Mass Index 28.7 Const: Other: No acute issues overnight Resp: Other: Clear to auscultation bilaterally no rales rhonchi or wheezes Cardio: Other: No S4; positive S1-S2; no S3 murmurs rubs or gallops .... Irregularly irregular GI: Other: Soft nontender nondistended normoactive bowel sounds Extrem: Other: No edema bilateral DS: Data Data Completed and Pending Completed studies during hospitalization [Text1]: Procedures Detoxification Services for Substance Abuse Treatment (11/11/21) Insertion of Endotracheal Airway into Trachea, Via Natural or Artificial Opening (11/11/21) Respiratory Ventilation, 24-96 Consecutive Hours (11/11/21) Synagogue of Cardiac Rhythm, Single (11/11/21) Discharge Plan Discharge Anticipated Discharge Date/Time: 05/27/22 11:14 Patient Disposition: Home, Self-Care Discharge Diagnosis: alcohol withdraw Referrals: Jerri Bennett MD [Primary Care Provider] - 1 Week Discharge Medications: New metoprolol succinate 25 mg Tablet Extended Release 24 Hr 25 mg PO DAILY Qty: 30 0RF Protocol: Hold for SBP/HR < HOLD for SBP < : 90 HOLD for HR < : 60 Continued amiodarone 200 mg tablet 200 mg PO DAILY 90 Days Qty: 90 1RF Eliquis 5 mg tablet 5 mg PO BID Qty: 180 1RF furosemide 40 mg tablet 40 mg PO DAILY 90 Days Qty: 90 1RF Protocol: Hold for SBP< HOLD for SBP < : 90 valsartan 40 mg tablet 40 mg PO BID Qty: 180 1RF Protocol: Hold for SBP< HOLD for SBP < : 90 Discontinued metoprolol succinate 25 mg tablet extended release 24 hr 12.5 mg PO DAILY Qty: 45 1RF Discharge Orders: Discharge Order (Routine); Ordered 05/27/22 Ordered By: Sameer Khan Diet: Advance to usual diet Activity on Discharge: As tolerated Stand Alone Forms: Patient Portal Discharge page Care Plan Goals: Avoidance alcohol is mandatory Health Concerns: Metoprolol is increased from 12.5-25 mg daily. New script is a your pharmacy Plan of Treatment: You have an appointment with Cardiology yumiko Simon [facility] Wednesday06/09/2022 at 15:15 Assessment: See discharge summary
--- NOTE | 2022-05-27 11:43 | MHC.CM.PN ---
DP: PT MEDICALLY CLEARED FOR DC HOME, NO SERVICES. RN AWARE. PER PT, HAS A RIDE HOME.
--- NOTE | 2022-05-27 12:34 | PC.NURSE ---
Alert and oriented. Denies pain, VSS, afebrile, no acute resp. distress noted. Took all schedule meds as ordered. New order to discharge patient with no services. Went over discharge instructions, medications administrations and follow up apt, verbalized understanding back. Ambulated [facility] independently, left via private car.
== END 2022-05-27 12:20 | disposition home or self-care (01) | DRG 201 ==
LOC: HO.ED 19:16 → HO.EDOVER 20:58 → HO.IMC 21:05
PROVIDERS: Hospitalist; Admitting Provider Internal Medicine; Emergency Provider Internal Medicine; PCP Internal Medicine; Visit Provider Hospitalist
DX: I48.0 Paroxysmal atrial fibrillation (principal); I42.6 Alcoholic cardiomyopathy; F10.239 Alcohol dependence with withdrawal, unspecified; F10.229 Alcohol dependence with intoxication, unspecified; I10 Essential (primary) hypertension; E83.42 Hypomagnesemia; Z23 Encounter for immunization; Y90.0 Blood alcohol level of less than 20 mg/100 ml; Z91.199 Patient's noncompliance with other medical treatment and regimen due to unspecified reason; Z79.01 Long term (current) use of anticoagulants; Z79.899 Other long term (current) drug therapy
CPT/HCPCS: 36415; 71045; 80048; 80053; 82077; 83735; 83880; 84484; 85025; 85610; 90686; 93005; 99285; J1160; J2250; J2405; J2560; J3475

== ENCOUNTER → 2022-06-01 09:41 | Outpatient (BNVA) | payer OTHER, SELFPAY | PROVIDERS: PCP Internal Medicine; Visit Provider Nurse Practitioner Psychiatric/Mental Health | DX: F10.20 Alcohol dependence, uncomplicated (principal) | CPT/HCPCS: 99212 ==

== ENCOUNTER → 2022-06-09 14:35 | Outpatient (BNVA) | payer OTHER, SELFPAY | PROVIDERS: PCP Internal Medicine; Visit Provider Nurse Practitioner Family | DX: I48.92 Unspecified atrial flutter (principal); I42.9 Cardiomyopathy, unspecified; I10 Essential (primary) hypertension; F10.20 Alcohol dependence, uncomplicated; Z79.01 Long term (current) use of anticoagulants; Z79.899 Other long term (current) drug therapy | CPT/HCPCS: 93005; 99212 ==

== ENCOUNTER 2022-08-31 01:28 | Emergency (ER) | payer OTHER, SELFPAY ==
[2022-08-31] VITALS (12 sets, daily range): BP systolic 101–168; BP diastolic 54–101; PULSE 100–180; RESP 16–38; TEMP 36.6–37; O2SAT 94–97; BMI 40.1
--- NOTE | ~2022-08-31 | CT_ITS ---
EXAMINATION: CT ABDOMEN AND PELVIS WITHOUT CONTRAST CLINICAL INFORMATION: Abdominal pain COMPARISON: 01/09/2021 TECHNIQUE: Multidetector volumetric imaging was performed from the superior aspect of the liver through the pubic symphysis. Sagittal and coronal reformatted images were obtained on the technologist's workstation. This CT examination was performed using dose optimization techniques as appropriate, variously including the following: *Automated exposure control *Adjustment of mA and/or kV according to patient size (this includes techniques or standardized protocols for targeted exams where dose is matched to indication/reason for exam; i.e. extremities or head) *Use of iterative reconstruction technique DLP: 797 mGy-cm FINDINGS: LUNG BASES: There are a few focal regions of opacity in the bilateral lower lobes. Coronary artery calcifications are present. LIVER, GALLBLADDER, AND BILIARY TREE: The liver demonstrates hypoattenuation consistent with steatosis. Focal right hepatic lobe lesion measuring approximately 1.2 cm on image 21/110 was also present on 11/03/2016, overall favoring a benign etiology such as a hemangioma. No biliary ductal dilatation is identified. The gallbladder is unremarkable. PANCREAS: Moderately atrophic. SPLEEN: Unremarkable. ADRENAL GLANDS: Unremarkable. KIDNEYS AND URETERS: No hydronephrosis or obstructing calculus bilaterally. Small left upper pole renal cyst; no follow-up recommended. Nonspecific bilateral perinephric stranding. BLADDER: Unremarkable. GASTROINTESTINAL TRACT: Colonic diverticulosis is noted. No evidence of bowel obstruction. No significant bowel wall thickening is seen. Appendix is suspected to be collapsed. Small amount of free fluid is present in the abdomen. No free air is seen. ABDOMINAL WALL: No significant hernia is appreciated. LYMPH NODES: Normal. VASCULAR: Scattered atherosclerotic calcifications. PELVIC VISCERA: Unremarkable. OSSEOUS STRUCTURES: Unremarkable. CT/CT abdomen pelvis wo IV con IMPRESSION: 1. Small volume of free fluid. 2. Few focal regions of opacity in the bilateral lower lobes, which may represent pneumonia. In the proper clinical setting, regions of infarct secondary to pulmonary emboli would also be a consideration, and if clinically warranted this could be further evaluated with chest CTA. Additional chest CT follow-up in approximately 3 months is advised to assess for resolution. 3. Coronary artery calcifications. Correlation with cardiac risk factors is recommended.
--- NOTE | ~2022-08-31 | XR_ITS ---
EXAMINATION: XR CHEST CLINICAL INFORMATION: Shortness of breath COMPARISON: 05/24/2022 TECHNIQUE: Frontal view of the chest was obtained. FINDINGS: Lung volumes are symmetric. Central vasculature is prominent which may reflect a degree of mild congestion. No definite consolidation is seen. No evidence of pneumothorax or significant pleural effusion. Cardiac silhouette remains prominent. No acute osseous findings are seen. XR/XR chest 1V IMPRESSION: Prominent central vasculature which may reflect a degree of congestion. Prominent cardiac silhouette.
--- NOTE | 2022-08-31 01:38 | ECG_ITS ---
Test Reason : RAPID AFIB Blood Pressure : / mmHG Vent. Rate : 136 BPM Atrial Rate : 000 BPM P-R Int : 000 ms QRS Dur : 102 ms QT Int : 340 ms P-R-T Axes : 000 066 191 degrees QTc Int : 511 ms Atrial fibrillation with rapid ventricular response Anteroseptal infarct , age undetermined Abnormal ECG When compared with ECG of 24-MAY-2022 19:09, Anteroseptal infarct is now Present ST no longer depressed in Anterior leads T wave inversion less evident in Lateral leads Referred By: Yessenia Kathleen Electronically Signed By:BJ FLORES MD
--- NOTE | 2022-08-31 01:39 | ED.ARRPALP ---
HPI - Arrhythmia/Palpitations General Chief Complaint: Arrhythmia/Palpitations Stated Complaint: SOB for 2Days Time Seen by Provider: 08/31/22 01:37 Source: patient and EMS Mode of arrival: EMS History of Present Illness HPI narrative: 57-year-old male with history of atrial fibrillation, RVR as well as alcohol use disorder and currently on apixaban. He states that he has had increasing shortness of breath over the past couple of days but also endorses that he stopped taking his Lasix because it makes him pee too much it is unclear when he last took his Lopressor. He otherwise denies any fevers but states he has had some chills. He denies any chest pain, he denies any history of seizures from withholding alcohol, he denies any abdominal pain. Related Data Previous Rx's Medication Instructions Recorded amiodarone 200 mg tablet 200 mg PO DAILY 90 days #90 tabs 12/31/21 apixaban 5 mg tablet (Eliquis) 5 mg PO BID #180 tabs 12/31/21 furosemide 40 mg tablet 40 mg PO DAILY 90 days #90 tabs 12/31/21 valsartan 40 mg tablet 40 mg PO BID #180 tabs 12/31/21 metoprolol succinate 25 mg 25 mg PO DAILY #30 tabs 05/27/22 tablet,extended release 24 hr naltrexone 50 mg tablet 50 mg PO DAILY #14 tabs 06/04/22 Allergies Allergy/AdvReac Type Severity Reaction Status Date / Time No Known Allergies Allergy Verified 08/31/22 03:36 [No Known Allergies*] Review of Systems Review of Systems: Pertinent positives and negatives as stated in HPI PMFSH Past Medical History Source: nursing notes reviewed Medical History Alcohol dependence with withdrawal Alcoholic hepatitis Atrial fibrillation with rapid ventricular response HTN (hypertension) Surgical History No pertinent past surgical history Family History Family History Father CAD (coronary artery disease) Mother Atrial fibrillation Social History Social History Household Members: None Housing: Apartment Do you presently have visiting nurse or other home services: No Unable to assess alcohol history related to: Unable to respond Alcohol intake: current Alcohol intake frequency: a few times a week Alcohol type: hard liquor Patient Tobacco Use Status: Never used Tobacco Smoked in Last 30 Days: No Use of substances other than those prescribed or required for medical reasons: No Advance Directives: No Advance Directives Information Provided: Yes service: No Current occupational status: employed Physical Exam Vital Signs: Vital Signs: Last Vital Signs Temp 98.3 F 08/31/22 03:24 Pulse 138 H 08/31/22 05:49 Resp 34 H 08/31/22 05:49 BP 130/89 08/31/22 05:49 Pulse Ox 97 08/31/22 05:49 O2 Del Method 08/31/22 05:49 BMI result Body Mass Index 40.1 VITAL SIGNS: Reviewed. GENERAL: Well developed, well nourished, in mild distress. HEAD: Normocephalic/atraumatic EYES: PERRLA, EOMI,+ scleral icterus EARS: Ext canals without abnormality, TMs non-bulging and non-erythematous NOSE: Nares patent bilateral OROPHARYNX: no oral lesions noted, posterior pharynx clear NECK: Supple, no adenopathy LUNGS: Good inspiratory effort, tachypnea is present, bibasilar rales noted. SpO2<95> CARDIOVASCULAR: Regular rate and rhythm without noted murmurs, no JVD or lower extremity edema. ABDOMEN: Soft, non-tender, non-distended with bowel sounds. MUSCULOSKELETAL: No tenderness, deformities, or effusions noted on gross inspection. EXTREMITIES: No cyanosis, clubbing or edema. SKIN: Inspection of the skin reveals no rashes NEUROLOGIC: Alert and oriented x 3. Strength and sensation to light touch were grossly intact x 4. Medications Administered Discontinued Medications Generic Name Dose Route Start Last Admin Trade Name Freq PRN Reason Stop Dose Admin Digoxin 0.5 mg 08/31/22 04:44 08/31/22 04:56 Digoxin 0.5 Mg/2 Ml Ampul IVPUSH 08/31/22 04:45 0.5 mg ONCE ONE Administration Furosemide 80 mg 08/31/22 01:37 08/31/22 01:41 Furosemide 100 Mg/10 Ml Vial IVPUSH 08/31/22 01:38 80 mg ONCE ONE Administration Protocol Sodium Chloride 500 mls @ 500 mls/hr 08/31/22 02:45 08/31/22 04:16 Ns IV 08/31/22 03:44 Infused .Q1H EDWIN Infusion Metoprolol Tartrate 5 mg 08/31/22 01:37 08/31/22 01:41 Metoprolol Tartrate 5 Mg/5 Ml Vial IVPUSH 08/31/22 01:38 5 mg ONCE ONE Administration Medical Decision Making Medical Decision Making MDM Narrative: 57-year-old male with history and clinical presentation after review of all investigations most consistent with alcohol-induced atrial fibrillation with RVR, patient is clearly in alcoholic ketoacidosisWith alcoholic hepatitis and currently pulmonary edema. 5 mg of Lopressor did not significantly improve patient's heart rate, have concerns regarding his consistent use of his anticoagulation and do not feel that pursuing cardioversion in an attempt to treat the remaining medical problems is in his best interest. Patient has an ROXANA. Review of all laboratory investigations demonstrates of patient is in alcoholic ketoacidosis as well as having alcoholic hepatitis, CHF exacerbation and in AFib with RVR and marginal blood pressures. Patient is alert and mentating well. Attempted 5 mg of Lopressor without great success which was followed with 0.5 of digoxin again with minimal improvement, patient also received 80 mg of Lasix and will receive additional 40 mg. Prior documentation patient is noted to have an EF 10-15%. I did not give heparin due to platelet count of 62 although there is no obvious active bleeding. On review of the imaging study there is noted free fluid which I suspect is coming from pancreatitis and there are noted opacities within the lower lobes which I do not attribute to infectious etiology given the absence of fever or leukocytosis. Differential Diagnosis Differential Diagnoses: The differential diagnosis associated with the presentation includes Please see the discussion above Consult Healthcare Provider Management of the patient was discussed with: Printing Supervisor There are no ICU beds and will attempt transfer as patient is complicated and will require more frequent monitoring than telemetry floor. 0430: I discussed with Dr Hernandez regarding a-fib with RVR in a complicated patient with soft pressures, off of anti-coagulation, EF: 10-15% in etoh hepatitis with ROXANA. His recommendation was to try digoxin and consider amio drip if necessary. 0441: I discussed/confirmed recommendations with cardiology, who confirmed that CR-1.67 okay to give Digoxin. 0546: I discussed the case with [facility] as [facility], [facility], [facility] are declining transfers 0626: I spoke with [facility] who accepts to [facility]-, Dr Burton. Lab Data MDM Lab Attestation statement: I reviewed the patient's lab results. Please see the discussion above 08/31/22 01:53 08/31/22 01:52 Labs: Lab Results 08/31/22 08/31/22 08/31/22 Range/Units 01:52 01:52 01:52 WBC (4.8-10.8) X10*3/uL RBC (4.60-5.80) X10*6/uL Hgb (14.0-18.0) g/dl Hct (42.0-52.0) % MCV (80.0-98.0) fL MCH (27.0-33.0) pg MCHC (31.0-36.0) g/dl RDW (11.0-16.0) % Plt Count (160-400) X10*3/uL MPV (9.4-12.4) fL Immature Gran % (Auto) (0.0-0.4) % Neut % (Auto) (45-73) % Lymph % (Auto) (20-40) % [place] % (Auto) (2-11) % Eos % (Auto) (0-4) % Baso % (Auto) (0-2) % Lymph # (Auto) (1.2-4.9) X10*3/uL [place] # (Auto) (0.1-1.2) X10*3/uL Eos # (Auto) (0.0-0.4) X10*3/uL Baso # (Auto) (0.0-0.2) X10*3/uL Abs Immat Gran (auto) (0.00-0.03) X10*3/uL Absolute Neuts (auto) (2.0-8.3) x10*3/uL Absolute Nucleated RBC (0.0-0.012) X10*3/uL Nucleated RBC % (auto) (0.0-0.2) /100WBC Smear Tech's Comments PT (10.0-13.1) SEC INR (0.9-1.1) APTT (26.0-36.4) SEC Sodium 132 L (135-145) mmol/L Potassium 4.7 D (3.3-5.1) mmol/L Chloride 95 L (96-108) mmol/L Carbon Dioxide 16 L (22-29) mmol/L Anion Gap 26 H (12-20) BUN 35 H (9-16) mg/dL Creatinine 1.67 H (0.5-1.4) mg/dL Estim Creat Clear Calc 66.8 Estimated GFR 43 Random Glucose 220 H (60-115) mg/dL Lactic Acid (0.5-2.0) mmol/L Calcium 8.6 (8.4-10.2) mg/dL Magnesium 1.9 (1.6-2.6) mg/dL Total Bilirubin 9.2 H (0.0-1.0) mg/dL AST 485 H (5-37) U/L ALT 423 H (0-40) U/L Alkaline Phosphatase 171 H (39-117) U/L Troponin I High Sens (<3.5-35.0) ng/L B-Natriuretic Peptide 2477 H (<100) pg/mL Total Protein 6.3 L (6.5-8.0) g/dL Albumin 3.7 (3.5-5.0) g/dL Lipase 87 H (8-78) U/L Acetone, Qual Negative (Negative) COVID-19 (GAUTAM) (Negative) COVID-19 Clin Com Influenza Type A (SINGH) Negative (Negative) Influenza Type B (SINGH) Negative (Negative) Influenza A & B Note See Note 08/31/22 08/31/22 08/31/22 Range/Units 01:52 01:52 01:52 WBC (4.8-10.8) X10*3/uL RBC (4.60-5.80) X10*6/uL Hgb (14.0-18.0) g/dl Hct (42.0-52.0) % MCV (80.0-98.0) fL MCH (27.0-33.0) pg MCHC (31.0-36.0) g/dl RDW (11.0-16.0) % Plt Count (160-400) X10*3/uL MPV (9.4-12.4) fL Immature Gran % (Auto) (0.0-0.4) % Neut % (Auto) (45-73) % Lymph % (Auto) (20-40) % [place] % (Auto) (2-11) % Eos % (Auto) (0-4) % Baso % (Auto) (0-2) % Lymph # (Auto) (1.2-4.9) X10*3/uL [place] # (Auto) (0.1-1.2) X10*3/uL Eos # (Auto) (0.0-0.4) X10*3/uL Baso # (Auto) (0.0-0.2) X10*3/uL Abs Immat Gran (auto) (0.00-0.03) X10*3/uL Absolute Neuts (auto) (2.0-8.3) x10*3/uL Absolute Nucleated RBC (0.0-0.012) X10*3/uL Nucleated RBC % (auto) (0.0-0.2) /100WBC Smear Tech's Comments PT 22.9 H (10.0-13.1) SEC INR 1.9 H (0.9-1.1) APTT 31.7 (26.0-36.4) SEC Sodium (135-145) mmol/L Potassium (3.3-5.1) mmol/L Chloride (96-108) mmol/L Carbon Dioxide (22-29) mmol/L Anion Gap (12-20) BUN (9-16) mg/dL Creatinine (0.5-1.4) mg/dL Estim Creat Clear Calc Estimated GFR Random Glucose (60-115) mg/dL Lactic Acid (0.5-2.0) mmol/L Calcium (8.4-10.2) mg/dL Magnesium (1.6-2.6) mg/dL Total Bilirubin (0.0-1.0) mg/dL AST (5-37) U/L ALT (0-40) U/L Alkaline Phosphatase (39-117) U/L Troponin I High Sens 47.9 H D (<3.5-35.0) ng/L B-Natriuretic Peptide (<100) pg/mL Total Protein (6.5-8.0) g/dL Albumin (3.5-5.0) g/dL Lipase (8-78) U/L Acetone, Qual (Negative) COVID-19 (GAUTAM) Negative (Negative) COVID-19 Clin Com See Note Influenza Type A (SINGH) (Negative) Influenza Type B (SINGH) (Negative) Influenza A & B Note 08/31/22 08/31/22 Range/Units 01:53 03:55 WBC 7.7 (4.8-10.8) X10*3/uL RBC 3.78 L (4.60-5.80) X10*6/uL Hgb 13.8 L (14.0-18.0) g/dl Hct 39.8 L (42.0-52.0) % MCV 105.3 H (80.0-98.0) fL MCH 36.5 H (27.0-33.0) pg MCHC 34.7 (31.0-36.0) g/dl RDW 14.8 (11.0-16.0) % Plt Count 62 L D (160-400) X10*3/uL MPV 13.5 H (9.4-12.4) fL Immature Gran % (Auto) 0.9 H (0.0-0.4) % Neut % (Auto) 82.2 H (45-73) % Lymph % (Auto) 4.4 L (20-40) % [place] % (Auto) 12.4 H (2-11) % Eos % (Auto) 0.0 (0-4) % Baso % (Auto) 0.1 (0-2) % Lymph # (Auto) 0.3 L (1.2-4.9) X10*3/uL [place] # (Auto) 1.0 (0.1-1.2) X10*3/uL Eos # (Auto) 0.0 (0.0-0.4) X10*3/uL Baso # (Auto) 0.0 (0.0-0.2) X10*3/uL Abs Immat Gran (auto) 0.07 H (0.00-0.03) X10*3/uL Absolute Neuts (auto) 6.4 (2.0-8.3) x10*3/uL Absolute Nucleated RBC 0.030 H (0.0-0.012) X10*3/uL Nucleated RBC % (auto) 0.4 H (0.0-0.2) /100WBC Smear Tech's Comments VERIFIED PT (10.0-13.1) SEC INR (0.9-1.1) APTT (26.0-36.4) SEC Sodium (135-145) mmol/L Potassium (3.3-5.1) mmol/L Chloride (96-108) mmol/L Carbon Dioxide (22-29) mmol/L Anion Gap (12-20) BUN (9-16) mg/dL Creatinine (0.5-1.4) mg/dL Estim Creat Clear Calc Estimated GFR Random Glucose (60-115) mg/dL Lactic Acid 3.9 H* (0.5-2.0) mmol/L Calcium (8.4-10.2) mg/dL Magnesium (1.6-2.6) mg/dL Total Bilirubin (0.0-1.0) mg/dL AST (5-37) U/L ALT (0-40) U/L Alkaline Phosphatase (39-117) U/L Troponin I High Sens (<3.5-35.0) ng/L B-Natriuretic Peptide (<100) pg/mL Total Protein (6.5-8.0) g/dL Albumin (3.5-5.0) g/dL Lipase (8-78) U/L Acetone, Qual (Negative) COVID-19 (GAUTAM) (Negative) COVID-19 Clin Com Influenza Type A (SINGH) (Negative) Influenza Type B (SINGH) (Negative) Influenza A & B Note Independent Interpretation I performed an independent interpretation of an: EKG Interpretation: Atrial fibrillation with RVR, HR-136, no STEMI, QRS within normal limits, QTC-511 Radiology Impression Radiologist Impression: My interpretation is in agreement with radiology's impression of the imaging study. External Record Review External record reviewed: Inpatient record, Outpatient record and Prior outpatient labs Chronic Conditions Patient?s care impacted by: Hypertension Alcohol use disorder, atrial fibrillation with RVR Critical Care Time Critical Care Time Critical Care Time: Yes Total Critical Care Time: 75 Attestation: I personally attest to this time spent taking care of the patient. Discharge Plan Discharge Clinical Impression: Acute alcoholic hepatitis, Alcoholic ketoacidosis, Acute pancreatitis, Hyperglycemia, ROXANA (acute kidney injury), Atrial fibrillation with RVR Patient Disposition: Xfer Acute [facility] Transfer Details: Higher level of care, no ICU level beds available at our institution. Prescriptions: No Action amiodarone 200 mg tablet 200 mg PO DAILY 90 Days Qty: 90 1RF Eliquis 5 mg tablet 5 mg PO BID Qty: 180 1RF furosemide 40 mg tablet 40 mg PO DAILY 90 Days Qty: 90 1RF Protocol: Hold for SBP< HOLD for SBP < : 90 valsartan 40 mg tablet 40 mg PO BID Qty: 180 1RF Protocol: Hold for SBP< HOLD for SBP < : 90 metoprolol succinate 25 mg Tablet Extended Release 24 Hr 25 mg PO DAILY Qty: 30 0RF Protocol: Hold for SBP/HR < HOLD for SBP < : 90 HOLD for HR < : 60 naltrexone 50 mg tablet 50 mg PO DAILY Qty: 14 0RF Rx Instructions: take 1/2 daily for 3 days then increase to one tab daily
[2022-08-31] MEDS: Metoprolol Tartrate 5 MG/5 ML VIAL IVPUSH (01:41)
[2022-08-31] MEDS: Furosemide 100 MG/10 ML VIAL 80 MG IVPUSH (01:41)
[2022-08-31 01:59] LABS: Lymphocytes Absolute Auto 0.3 X10*3/uL (1.2-4.9); Lymphocytes Percent Auto 4.4 % (20-40); NRBC Pct Auto 0.4 /100WBC (0.0-0.2); Neutrophils Absolute Auto 6.4 x10*3/uL (2.0-8.3); Red Cell Distribution Width 14.8 % (11.0-16.0); SCAN SMEAR FLAG 1
--- NOTE | 2022-08-31 01:59 | PC.NURSE ---
Pt BIBA EMS from home, pt placed on monitor and MD in room at bedside to eval pt upon arrival. Pt in rapid [id number] on arrival. EMS established IV and gave 5mg metoprolol enroute. Labs drawn and ekg complete. pt did have a 6 run of MD Vidya aware
[2022-08-31 02:00] LABS: Basophils Percent Auto 0.1 % (0-2); Hematocrit 39.8 % (42.0-52.0); Hemoglobin 13.8 g/dl (14.0-18.0); Imm Gran Abs Auto 0.07 X10*3/uL (0.00-0.03); Imm Gran Pct Auto 0.9 % (0.0-0.4); MANUAL DIFF FLAG SCAN; Mean Corpuscular HGB Conc 34.7 g/dl (31.0-36.0); Mean Corpuscular Hemoglobin 36.5 pg (27.0-33.0); Mean Corpuscular Volume 105.3 fL (80.0-98.0); Mean Platelet Volume 13.5 fL (9.4-12.4); Monocytes Percent Auto 12.4 % (2-11); Neutrophils Percent Auto 82.2 % (45-73); Red Blood Count 3.78 X10*6/uL (4.60-5.80); White Blood Count 7.7 X10*3/uL (4.8-10.8)
[2022-08-31 02:01] LABS: PLT ABN DIST 1; Platelet Count 62 X10*3/uL (160-400)
[2022-08-31 02:07] LABS: INTERNATIONAL NORM RATIO 1.9 (0.9-1.1); Prothrombin Time 22.9 SEC (10.0-13.1)
[2022-08-31 02:13] LABS: Alanine Aminotransferase 423 U/L (0-40); Albumin Level 3.7 g/dL (3.5-5.0); Alkaline Phosphatase 171 U/L (39-117); Anion Gap 26 (12-20); Aspartate Amino Transferase 485 U/L (5-37); Bilirubin Total 9.2 mg/dL (0.0-1.0); Blood Urea Nitrogen 35 mg/dL (9-16); Calcium 8.6 mg/dL (8.4-10.2); Carbon Dioxide 16 mmol/L (22-29); Chloride 95 mmol/L (96-108); Creatinine Clr Calc Pharmacy 66.8; Estimated Glomerular Filt Rate 43; Glucose Random 220 mg/dL (60-115); Magnesium 1.9 mg/dL (1.6-2.6); Potassium 4.7 mmol/L (3.3-5.1); Sodium 132 mmol/L (135-145); Total Protein 6.3 g/dL (6.5-8.0)
[2022-08-31 02:17] LABS: Troponin-I High Sensitivity 47.9 ng/L (<3.5-35.0)
[2022-08-31 02:22] LABS: COVID-19 Test Negative (Negative); IDNOW Serial# 16C4AD1C; IDNOW Serial# BCCEAD1C; Influenza A Negative (Negative); Influenza B2 Negative (Negative)
[2022-08-31 02:25] LABS: Acetone, serum QL Negative (Negative)
[2022-08-31 02:27] LABS: B Type Natriuretic Peptide 2477 pg/mL (<100)
[2022-08-31 02:35] LABS: SLIDE REVIEW VERIFIED
[2022-08-31 02:55] LABS: Lipase 87 U/L (8-78)
[2022-08-31] MEDS: 0.9 % Sodium Chloride 500 ML IV (02:56)
--- NOTE | 2022-08-31 03:32 | PC.NURSE ---
Lzu, PCT bladder scanned pt, approximately 71ml of urine in bladder, aware
[2022-08-31 04:25] LABS: Lactic Acid 3.9 mmol/L (0.5-2.0)
[2022-08-31 04:31] LABS: Partial Thromboplastin Time 31.7 SEC (26.0-36.4)
[2022-08-31] MEDS: Digoxin 0.5 MG/2 ML AMPUL IVPUSH (04:56)
--- NOTE | 2022-08-31 05:04 | MHC.EDTECH ---
[facility]'s Transfer line called at [phone] per ,spoke with Natalie she stated they are closed to transfers at this time.Provider ines [facility]'s Transfer Line called at [phone] per ,gave patient demographics,speaking with provider at this time.
--- NOTE | 2022-08-31 05:45 | MHC.EDTECH ---
Received a call back from [facility],patient was not accepted per .
--- NOTE | 2022-08-31 05:47 | MHC.EDTECH ---
[facility] Transfer Line called at 0538 per ,spoke with Joe rachel patient demographics,awaiting for a call back at this time. aware
--- NOTE | 2022-08-31 05:54 | MHC.EDTECH ---
Received a call back from [place] at 0546 speaking with at this time.
[2022-08-31 06:00] LABS: Reflex Lactate? Lactic Acid Added
[2022-08-31] MEDS: dilTIAZem HCL 50 MG/10 ML VIAL IVPUSH (06:39)
[2022-08-31] MEDS: Furosemide 40 MG/4 ML VIAL IVPUSH (06:39)
--- NOTE | 2022-08-31 06:50 | MHC.EDTECH ---
Received a call at 0625 from [facility] patient was accepted by to the ED. [facility] called at [phone] for an ALS transfer,spoke with Lidia she gave me an eta of [phone] to [phone]. is aware
[2022-08-31 07:20] LABS: Ethanol < 10 mg/dL
--- NOTE | 2022-08-31 07:21 | MHC.EDTECH ---
Asked patient for a urine sample but patient states unable to go at this time will try later .RN aware
[2022-08-31 07:53] LABS: Amphetamine Screen Urine Not Detected (Not Detect); Barbiturates, Urine Not Detected (Not Detect); Benzodiazepines Screen Urine Not Detected (Not Detect); Cannabinoid Screen Urine Not Detected (Not Detect); Cocaine Screen Urine Not Detected (Not Detect); Fentanyl, urine Not Detected (Not Detect); Opiate Screen Urine Not Detected (Not Detect); Phencyclidine Screen Urine Not Detected (Not Detect)
[2022-08-31 07:55] LABS: Color Urine Dark Yellow; Glucose Urine UA Negative (Negative); Leukocyte Esterase Urine Negative (Negative); Nitrite Urine Negative (Negative); Urine Blood Negative (Negative); Urine Ketones Negative (Negative); Urine Protein Negative (Neg-Trace)
[2022-08-31 07:57] LABS: Appearance Urine Hazy
[2022-08-31] MEDS: dilTIAZem HCL 50 MG/10 ML VIAL 10 MG IVPUSH (08:22)
[2022-08-31] MEDS: dilTIAZem HCL 125 MG in 0.9 % Sodium Chloride 100 ML 10 MG IVCONT (08:32)
[2022-08-31 09:47] LABS: Reflex Lactate? 2 Y
== END 2022-08-31 09:16 | disposition short-term general hospital (02) ==
PROVIDERS: Student in an Organized Health Care Education/Training Program; Emergency Provider Emergency Medicine
DX: F10.288 Alcohol dependence with other alcohol-induced disorder (principal); Y90.9 Presence of alcohol in blood, level not specified; K70.10 Alcoholic hepatitis without ascites; E87.29 Other acidosis; K85.90 Acute pancreatitis without necrosis or infection, unspecified; R73.9 Hyperglycemia, unspecified; N17.9 Acute kidney failure, unspecified; I48.20 Chronic atrial fibrillation, unspecified; R06.02 Shortness of breath; Z20.822 Contact with and (suspected) exposure to COVID-19; I10 Essential (primary) hypertension; Z79.01 Long term (current) use of anticoagulants; Z79.899 Other long term (current) drug therapy
CPT/HCPCS: 36415; 71045; 74176; 80053; 80307; 81003; 82009; 82077; 83605; 83690; 83735; 83880; 84484; 85025; 85610; 85730; 87040; 87502; 87635; 93005; 96361; 96365; 96375; 96376; 99285; J1160; J1940

== ENCOUNTER → 2022-09-16 10:27 | Outpatient (BNVA) | payer OTHER, SELFPAY | PROVIDERS: Visit Provider Internal Medicine Cardiovascular Disease | DX: I48.19 Other persistent atrial fibrillation (principal); I49.3 Ventricular premature depolarization; I44.7 Left bundle-branch block, unspecified; I50.22 Chronic systolic (congestive) heart failure; I51.3 Intracardiac thrombosis, not elsewhere classified; F10.288 Alcohol dependence with other alcohol-induced disorder; K70.10 Alcoholic hepatitis without ascites; Z98.890 Other specified postprocedural states | CPT/HCPCS: 93005; 99212 ==

== ENCOUNTER 2022-10-07 11:18 | Day surgery (SDC) | payer OTHER, SELFPAY ==
[2022-10-01 14:50] VITALS: BMI 29.7
[2022-10-07 11:50] VITALS: BP 144/92; PULSE 77; RESP 20; TEMP 36.1; O2SAT 97
[2022-10-07 11:52] LABS: Glucose, Whole Blood 123 mg/dL (60-115)
[2022-10-07] MEDS: Lactated Ringers 1,000 ML 50 ML IVCONT (12:09)
--- NOTE | 2022-10-07 12:44 | CA_ITS ---
Transesophageal Echocardiogram Patient (Last, First, Middle): Abner Galvan, Gender: Male Date of : 1965 Age: 57 Procedure Date: 10/07/2022 Procedure Type: Transesophageal Echocardiogram Location: OP Height: 177.8 cm Weight: kg Rubber Compounder Mixer: MARIA LUZ Referring MD: Maximino Baekr MD Basketball Commentator: Maximino Baker MD Symptoms: prior left atrial appendage thrombus to rule out, Cardioversion Conclusion: ??? 1. No left atrial or left atrial appendage thrombus 2. No intracardiac masses or vegetations 3. Severely reduced LV ejection fraction of 10-15% 4. Enlarged left atrium 5. Mild mitral regurgitation 6. Mild atherosclerotic changes in the descending thoracic aorta 7. No pericardial effusion 8. No intracardiac shunting Findings Procedure Information Consent was obtained prior to the procedure. Pre CORTNEY oral cavity was checked and revealed mild overcrowding. The adult 3D probe was passed with minimal difficulty. Left Ventricle Moderately increased left ventricular cavity size. The left ventricular systolic function is severely decreased. The visually estimated ejection fraction is between 10-15%. There is severe global hypokinesis. Diastolic function is indeterminate on the basis of available data. There is no evidence of a thrombus in the left ventricle. Right Ventricle Normal right ventricular cavity size. There is low normal right ventricular systolic function. Atria The left atrium is moderately dilated. There is no evidence of interatrial shunt. There is no evidence of thrombus or mass in the left atrium. no significant smoke formation seen. The left atrial appendage was added 5 multiple views. There are no smoke or filling defect consistent with class noting left atrial appendage. The left upper pulmonary vein was added for draining into the left atrium. The right atrium is mildly dilated. There is no evidence of thrombus or mass in the right atrium. The SVC and IVC drain normally into the right atrium. The IVC is collapsible consistent with normal right atrial pressures. Aortic Valve Normal aortic valve structure and function. There is no evidence of thickening of the aortic valve. There is no evidence of a mass on the aortic valve. There is no aortic valve regurgitation. Mitral Valve Normal mitral valve structure and function. There is mild mitral valve regurgitation. There is no mitral valve stenosis. There is no mass noted on the mitral valve. Pulmonic Valve The pulmonic valve was not well visualized. Tricuspid Valve Normal tricuspid valve structure. There is mild tricuspid valve regurgitation. Great Vessels All visible segments of the aorta are normal in size. Small plaque is seen in the descending thoracic aorta. The visualized portions of the pulmonary artery and branches are normal. Venous The inferior vena cava is normal in size and collapses greater than 50% with inspiration. Pericardium/Pleural There is no evidence of pericardial effusion. Updated by Maximino Baker on 03:03 PM with Status of Final Maximino Baker MD electronically signed on 10/08/2022 3:03:40 PM with status of Final
--- NOTE | 2022-10-07 12:45 | MHC.SHP ---
Pre-Procedural Eval Section A Date of Service: 10/07/22 The patient is an INPATIENT: No Changes since office visit: Yes Changes in Medication and Yes Patient answered all questions; No Cold of Flu in the past 2 weeks and No New Medical Problems The History & Physical has been completed within 30 days and I have reviewed it.: Yes Section B Chief Complaint: Other persistent atrial fibrillation,Cardiomyopath Allergies: Allergies Allergy/AdvReac Type Severity Reaction Status Date / Time No Known Allergies Allergy Verified 08/31/22 03:36 [No Known Allergies*] Plan I have reviewed the history and physical and performed a pertinent physical examination on my patient. No changes have occurred unless specified. Time Spent With Patient Time: Total time managing care of this patient today ____ minutes.
[2022-10-07 14:15] VITALS: BP 116/69; PULSE 62; RESP 17; TEMP 36.6; O2SAT 96
--- NOTE | 2022-10-07 14:28 | ECG_ITS ---
Test Reason : postop Blood Pressure : / mmHG Vent. Rate : 062 BPM Atrial Rate : 062 BPM P-R Int : 196 ms QRS Dur : 102 ms QT Int : 412 ms P-R-T Axes : 046 028 227 degrees QTc Int : 418 ms Normal sinus rhythm Possible Left atrial enlargement ST & T wave abnormality, consider lateral ischemia Abnormal ECG When compared with ECG of 31-AUG-2022 01:36, Sinus rhythm has replaced Atrial fibrillation Vent. rate has decreased BY 74 BPM Criteria for Anteroseptal infarct are no longer Present T wave inversion now evident in Anterior leads Referred By: Maximino Baker Electronically Signed By:MAXIMINO BAKER MD
--- NOTE | 2022-10-07 14:28 | HO.CARDIVERS ---
Cardioversion Procedure Note Cardioversion Date of Procedure: today Ordering Provider: myself Performing Provider: myself Indication for Procedure: persistent difficult control atrial fibrillation with severe LV systolic dysfunction and heart failure Pre-Op Diagnosis: same Post-Op Diagnosis: normal sinus rhythm Performed with Transesophageal Echo: Yes CORTNEY findings (if CORTNEY Performed): dictated separately History: see my office note Consent: Verbal and Written consent was obtained from the patient before starting and after confirming oral medication use. The patient was made aware of the risk of synchronized cardioversion including benefits and alternatives Procedure: After consent obtained, cardioversion pads were attached and the patient was sedated by the anesthesia team. Once adequate sedation achieved, patient was delivered 200 joules of biphasic synchronized energy in anteroposterior configuration. Complications: None Impression: successful conversion to sinus rhythm Recommendations: 1. Continue amiodarone and oral anticoagulation use 2. Twelve lead EKG 3. Discontinue digoxin 4. Follow up in the office after Holter monitor
[2022-10-07 14:30] VITALS: BP 123/83; PULSE 69; RESP 18; O2SAT 98
[2022-10-07 14:45] VITALS: BP 116/81; PULSE 65; RESP 16; TEMP 36.1; O2SAT 97
--- NOTE | 2022-10-08 12:42 | HO.ANESPROP2 ---
HPI - Anesthesia Eval Consult details Narrative: ?Patient for CORTNEY cardio version. He has regular drinker, several times a week.? He has a history of atrial fibrillation with rapid rates as well as cardiomyopathy.? It seems that he has been cardioverted twice the last few months.? In spite of this, no regular follow-up.? Does not have much of understanding of the severity of his illness.? It seems that this time he came because of his mother being admitted to the hospital.? He was having some nonspecific weakness, palpitations dizziness extra and that led to hospitalization.? He was found to have atrial fibrillation with rapid rates and then admitted to the hospital.? Patient states that he feels fine and does not have any symptoms at this time.? His sister is at the bedside.? Otherwise, he states he is taking all his medications but he may miss them intermittently but overall unclear compliance.? Continues to drink regularly.EF 10%, AFIB with RVR PMFSH Active Problems Active Problems: All Active Problems (Updated 09/16/22 @ 11:55 by Maximino Baker MD) Chronic HFrEF (heart failure with reduced ejection fraction) (Acute) Atrial fibrillation with rapid ventricular response (Acute) Hospital discharge follow-up (Acute) Alcohol use disorder, moderate, dependence (Acute) HTN (hypertension) (Acute) Cardiomyopathy (Acute) Atrial flutter with rapid ventricular response (Acute) Acute hyponatremia (Acute) Past Medical History Medical History Alcohol dependence with withdrawal Alcoholic hepatitis Atrial fibrillation with rapid ventricular response HTN (hypertension) Family History Family History Father CAD (coronary artery disease) Mother Atrial fibrillation Family history of problems with anesthesia: No Surgical History Surgical History No pertinent past surgical history History of Problems with Anesthesia: No Social History Social History Household Members: None Housing: Apartment Do you presently have visiting nurse or other home services: No Unable to assess alcohol history related to: Unable to respond Alcohol intake: current Alcohol intake frequency: does not drink Alcohol type: hard liquor Patient Tobacco Use Status: Never used Tobacco service: No Current occupational status: employed Meds Allergies Allergy/AdvReac Type Severity Reaction Status Date / Time No Known Allergies Allergy Verified 08/31/22 03:36 [No Known Allergies*] Home Medications Medication Instructions Recorded Confirmed Last Taken Type folic acid 1 mg tablet 1 mg PO DAILY 09/16/22 09/16/22 10/06/22 History losartan 25 mg tablet 12.5 mg PO DAILY 09/16/22 09/16/22 10/06/22 History potassium chloride 10 mEq 10 meq PO BID 09/16/22 09/16/22 10/06/22 History tablet,extended release spironolactone 25 mg tablet 25 mg PO DAILY 09/16/22 09/16/22 10/06/22 History thiamine mononitrate (vit B1) 100 mg PO 09/16/22 09/16/22 10/06/22 History mg tablet (Vitamin B-1 (mononitrate)) Exam Exam Date and Time: October 08, 2022 1242 Height,Weight and Vital Signs: Height 5 ft 10 in Weight 93.894 kg Last Vital Signs Temp 97 F 10/07/22 14:45 Pulse 65 10/07/22 14:45 Resp 16 10/07/22 14:45 BP 116/81 10/07/22 14:45 Pulse Ox 97 10/07/22 14:45 O2 Del Method Room Air 10/07/22 14:45 O2 Flow Rate 6 10/07/22 14:15 Pertinent Lab Results Pertinent Lab Results: Laboratory Tests 10/07/22 11:46 POC Glucose 123 H Airway Mallampati Class: II Neck ROM: Full Heart: afib with rvr Lungs: cta Assessment and Plan Assessment Anesthesia Assessment: Anesthesia Plan Discussed and Chart Reviewed Final Anesthetic Review Family History of Problems with Anesthesia: No History of Problems with Anesthesia: No NPO: Yes ASA Class: IV and Emergency Final Preanesthetic Review: No Changes in Pt Med Stat and Consent Obtained/Reviewed Patient Risk: High Procedure Risk: High Anesthetic Plan Anesthetic Plan: MAC: Disposition: Extended PACU
== END 2022-10-07 15:25 | disposition home or self-care (01) ==
PROVIDERS: Visit Provider Internal Medicine Cardiovascular Disease
PROC: (CPT 93312; principal; 2022-10-07 13:00)
PROC: 5A2204Z Restoration of Cardiac Rhythm, Single (ICD-10-PCS; CPT 93312; 2022-10-07 13:00)
DX: I48.19 Other persistent atrial fibrillation (principal); I50.22 Chronic systolic (congestive) heart failure; I42.9 Cardiomyopathy, unspecified; I10 Essential (primary) hypertension; Z79.01 Long term (current) use of anticoagulants; Z79.899 Other long term (current) drug therapy
CPT/HCPCS: 93312; 82947; 92960; 93005; J2250; J2370; J3010

== ENCOUNTER → 2022-10-30 08:56 | Outpatient (BNVA) | payer OTHER, SELFPAY | PROVIDERS: Visit Provider Internal Medicine Cardiovascular Disease | DX: I48.91 Unspecified atrial fibrillation (principal); I50.22 Chronic systolic (congestive) heart failure | CPT/HCPCS: 93005; 99212 ==

== ENCOUNTER 2022-11-05 02:25 | Inpatient (IN) | payer OTHER, SELFPAY ==
[2022-11-05] VITALS (22 sets, daily range): BP systolic 112–162; BP diastolic 87–109; PULSE 63–140; RESP 13–24; TEMP 36–36.7; O2SAT 90–100; BMI 28.7; BMI 30.2; BMI 30.3
--- NOTE | 2022-11-05 | ECG_ITS ---
Test Reason : RAPID HEART RATE Blood Pressure : / mmHG Vent. Rate : 130 BPM Atrial Rate : 000 BPM P-R Int : 000 ms QRS Dur : 108 ms QT Int : 356 ms P-R-T Axes : 000 049 154 degrees QTc Int : 523 ms Atrial fibrillation with rapid ventricular response Incomplete left bundle branch block Nonspecific ST and T wave abnormality Abnormal ECG When compared with ECG of 07-OCT-2022 14:32, Atrial fibrillation has replaced Sinus rhythm Vent. rate has increased BY 68 BPM T wave inversion no longer evident in Anterior leads Referred By: Generic ED Physician Electronically Signed By:BJ FLORES MD
--- NOTE | ~2022-11-05 | CT_ITS ---
EXAMINATION: CT ABDOMEN AND PELVIS WITH CONTRAST CLINICAL INFORMATION: Abdominal pain, distention COMPARISON: CT abdomen pelvis 08/31/2022 TECHNIQUE: Multidetector volumetric images were obtained from the superior aspect of the liver through the pubic symphysis following administration 85 mL of Omnipaque 350 intravenous contrast. Sagittal and coronal reformatted images were obtained on the technologist's workstation. Oral contrast: No This CT examination was performed using dose optimization techniques as appropriate, variously including the following: *Automated exposure control *Adjustment of mA and/or kV according to patient size (this includes techniques or standardized protocols for targeted exams where dose is matched to indication/reason for exam; i.e. extremities or head) *Use of iterative reconstruction technique DLP: 758 mGy-cm FINDINGS: LUNG BASES: There has been interval improvement in the previously seen consolidative nodular opacities in the bilateral lung bases with a residual 1.1 cm nodular opacity in the right lung base and a 1.1 cm nodular opacity in the left lung base, previously 3.6 cm and 2.0 cm respectively which may reflect an improved infectious/inflammatory airways process however given findings persist recommend additional 3 month follow-up CT chest to ensure resolution. ABDOMINAL AND PELVIC WALL: Small umbilical hernia containing fluid similar to prior. LIVER AND BILIARY TREE: A 1.4 cm liver lesion with discontinuous peripheral nodular enhancement, 3:19, present since 2017 where it measured 1.3 cm, possibly reflective of a hemangioma. Hypoattenuating hepatic parenchyma compatible with hepatic steatosis. GALLBLADDER: Unremarkable. PANCREAS: Unremarkable. SPLEEN: Unremarkable. ADRENAL GLANDS: Unremarkable. KIDNEYS AND URETERS: New wedge-shaped parenchymal opacities throughout the right kidney suggesting renal infarction. GASTROINTESTINAL TRACT: Small hiatal hernia. Colonic diverticulosis without evidence of diverticulitis. Normal appendix. VASCULAR: The renal veins appear patent. The renal arteries are suboptimally evaluated on this non angiographic phase CT although appear grossly patent within limitations. There are 2 left renal arteries. LYMPH NODES/PERITONEUM: Mildly enlarged 1.1 cm melissa hepatic node, 4:262, not significantly changed from 2017 where it measured 1 cm short axis. FREE FLUID: Small volume ascites possibly minimally decreased from prior. BLADDER: Unremarkable. PELVIC VISCERA: Unremarkable. OSSEOUS STRUCTURES: Stable T12 wedge compression deformity. CT/CT abdomen pelvis w IV con IMPRESSION: 1. New wedge-shaped parenchymal opacities throughout the right kidney suggesting renal infarction, though pyelonephritis could appear similar this is less favored, recommend correlation with urinalysis. The renal arteries are suboptimally evaluated on this nonangiographic phase CT although appear grossly patent within limitations of this non angiographic phase CT. 2. Small volume ascites possibly minimally decreased from prior. 3. There has been interval improvement in the previously seen consolidative nodular opacities in the bilateral lung bases with a residual 1.1 cm nodular opacity in the right lung base and a 1.1 cm nodular opacity in the left lung base, which may reflect an improved infectious/inflammatory airways process however given findings persist recommend additional 3 month follow-up CT chest to ensure resolution. 4. A 1.4 cm liver lesion with discontinuous peripheral nodular enhancement, present since 2017 where it measured 1.3 cm, possibly reflective of a hemangioma.
--- NOTE | ~2022-11-05 | XR_ITS ---
EXAMINATION: XR CHEST CLINICAL INFORMATION: Shortness of breath COMPARISON: 08/31/2022 TECHNIQUE: 2 views of the chest were obtained. FINDINGS: Lung volumes are symmetric. No focal consolidation is seen. There is mild interstitial prominence diffusely along with Evelia B-lines at the lung bases, favoring interstitial edema. No evidence of pneumothorax or pleural effusion. Cardiac silhouette appears slightly enlarged. No acute osseous findings are seen. XR/XR chest 2V IMPRESSION: Mild interstitial edema. Mildly enlarged cardiac silhouette.
[2022-11-05 02:49] LABS: Basophils Percent Auto 0.5 % (0-2); Eosinophils Percent Auto 0.5 % (0-4); Hematocrit 42.4 % (42.0-52.0); Hemoglobin 14.4 g/dl (14.0-18.0); Imm Gran Abs Auto 0.04 X10*3/uL (0.00-0.03); Imm Gran Pct Auto 0.5 % (0.0-0.4); Lymphocytes Absolute Auto 1.4 X10*3/uL (1.2-4.9); Lymphocytes Percent Auto 17.4 % (20-40); Mean Corpuscular Hemoglobin 35.4 pg (27.0-33.0); Mean Corpuscular Volume 104.2 fL (80.0-98.0); Monocytes Absolute Auto 0.4 X10*3/uL (0.1-1.2); Monocytes Percent Auto 4.9 % (2-11); Neutrophils Absolute Auto 5.9 x10*3/uL (2.0-8.3); Neutrophils Percent Auto 76.2 % (45-73); Platelet Count 140 X10*3/uL (160-400); Red Blood Count 4.07 X10*6/uL (4.60-5.80); Red Cell Distribution Width 14.4 % (11.0-16.0); White Blood Count 7.8 X10*3/uL (4.8-10.8)
[2022-11-05 02:50] LABS: MANUAL DIFF FLAG NO
[2022-11-05 03:01] LABS: Anion Gap 18 (12-20); Blood Urea Nitrogen 13 mg/dL (9-16); Calcium 8.7 mg/dL (8.4-10.2); Carbon Dioxide 21 mmol/L (22-29); Chloride 107 mmol/L (96-108); Creatinine Clr Calc Pharmacy 76.2; Estimated Glomerular Filt Rate > 60; Glucose Random 166 mg/dL (60-115); Potassium 3.6 mmol/L (3.3-5.1); Sodium 142 mmol/L (135-145)
--- NOTE | 2022-11-05 03:12 | ED.SOB ---
HPI - SOB/Dyspnea General Chief Complaint: Dyspnea Stated Complaint: SOB after drinking Time Seen by Provider: 11/05/22 02:55 Source: patient Mode of arrival: EMS Limitations: no limitations History of Present Illness HPI Narrative: Patient comes to the emergency room complaining of shortness of breath. Patient states that approximately 5 hours ago he was watching TV, started feeling very short of breath and having palpitations. Patient states that he has history of AFib, admits that he was drinking vodka earlier today. Patient states that he is compliant with his medication. Patient denies chest pain but states he feels heavy, more so the breathing than actual chest. Patient denies any recent illnesses. Related Data Home Medications Medication Instructions Recorded Confirmed folic acid 1 mg tablet 1 mg PO DAILY 09/16/22 10/30/22 losartan 25 mg tablet 12.5 mg PO DAILY 09/16/22 10/30/22 potassium chloride 10 mEq 10 meq PO BID 09/16/22 10/30/22 tablet,extended release spironolactone 25 mg tablet 25 mg PO DAILY 09/16/22 10/30/22 thiamine mononitrate (vit B1) 100 mg PO 09/16/22 10/30/22 mg tablet (Vitamin B-1 (mononitrate)) Previous Rx's Medication Instructions Recorded amiodarone 200 mg tablet 200 mg PO DAILY 90 days #90 tabs 12/31/21 apixaban 5 mg tablet (Eliquis) 5 mg PO BID #180 tabs 12/31/21 furosemide 40 mg tablet 40 mg PO DAILY 90 days #90 tabs 12/31/21 empagliflozin 10 mg tablet 10 mg PO DAILY #30 tabs 09/16/22 (Jardiance) metoprolol succinate 50 mg 50 mg PO BID #60 tabs 09/16/22 tablet,extended release 24 hr Allergies Allergy/AdvReac Type Severity Reaction Status Date / Time No Known Allergies Allergy Verified 08/31/22 03:36 [No Known Allergies*] Review of Systems Review of Systems: Constitutional : No Weight loss, No Fever, No Chills, No Night Sweats, No Fatigue, No Malaise ENT/Mouth : No Hearing loss, No Ear Pain, No Nasal Congestion, No Sinus Pain, No Hoarseness, No sore throat, No Rhinorrhea, No Swallowing Difficulty Eyes: No Eye Pain, No Swelling, No Redness, No Foreign Body, No Discharge, No Vision Changes Cardiovascular : No Chest Pain, complaining of chest pressure, complaining of dyspnea at rest and palpitations Respiratory : No Cough, No Sputum, No Wheezing, No Smoke Exposure Gastrointestinal : No Nausea, No Vomiting, No Diarrhea, No Constipation, No abdominal Pain, No Hematochezia, No Melena Genitourinary : no irregular bleeding, No Dysuria, No Urinary Frequency, No Hematuria, No Urinary Incontinence, No Urgency, No Flank Pain, No Urinary Flow Changes, No Hesitancy Musculoskeletal : No joint pain, No Myalgias, No Joint Swelling Skin : No Skin Lesions, No rash Neuro : No Weakness, No Numbness, No Paresthesias, No Loss of Consciousness, No Dizziness, No Headache Psych : No Anxiety/Panic, No Depression, No SI/HI/AH/VH, No Social Issues, Heme/Lymph: No Bruising, No Bleeding,No Lymphadenopathy Endocrine : No Polyuria, No Polydipsia, No Temperature Intolerance [facility] Past Medical History Medical History Alcohol dependence with withdrawal Alcoholic hepatitis Atrial fibrillation with rapid ventricular response HTN (hypertension) Surgical History No pertinent past surgical history Family History Family History Father CAD (coronary artery disease) Mother Atrial fibrillation Social History Social History Household Members: None Housing: Apartment Do you presently have visiting nurse or other home services: No Unable to assess alcohol history related to: Unable to respond Alcohol intake: current Alcohol intake frequency: does not drink Alcohol type: hard liquor Patient Tobacco Use Status: Never used Tobacco Advance Directives: No Advance Directives Information Provided: Yes service: No Current occupational status: employed Physical Exam Vital Signs: Vital Signs: Last Vital Signs Temp 97.6 F 11/05/22 05:35 Pulse 63 11/05/22 05:36 Resp 14 11/05/22 05:36 BP 131/88 11/05/22 05:36 Pulse Ox 96 11/05/22 05:36 O2 Del Method Nasal Cannula 11/05/22 04:26 O2 Flow Rate 4 11/05/22 04:26 BMI result Body Mass Index 28.7 Const: Other: Appearance: Alert. Oriented X3. No acute distress. Eyes: Pupils equal, round and reactive to light. ENT: Pharynx normal. Neck: Normal inspection. Neck supple. No lymph nodes noted. No crepitus CVS: Irregularly irregular heart rate, S1-S2, no murmurs Respiratory: No respiratory distress. Breath sounds normal. No Wheezing. No rales Abdomen: Soft and nontender. No rigidity. No distention. Skin: Skin warm and dry. Normal skin color. Normal skin turgor. Extremities: No lower extremity edema. No Lacerations. No Rash Neuro: Oriented X 3. No motor deficit. No sensory deficit. Moving all extremities. No slurred speech. CN 2 through 12 grossly intact Psych: calm, cooperative, normal affect Course Course Course Narrative: -patient's labs and imaging pending. Medications Administered Discontinued Medications Generic Name Dose Route Start Last Admin Trade Name Freq PRN Reason Stop Dose Admin Diltiazem HCl 10 mg 11/05/22 04:45 11/05/22 04:50 Diltiazem Hcl 50 Mg/10 Ml Vial IVPUSH 11/05/22 04:46 10 mg STAT STA Administration Furosemide 20 mg 11/05/22 03:50 11/05/22 03:53 Furosemide 20 Mg/2 Ml Vial IVPUSH 11/05/22 03:51 20 mg ONCE ONE Administration Protocol Metoprolol Tartrate 5 mg 11/05/22 03:10 11/05/22 03:17 Metoprolol Tartrate 5 Mg/5 Ml Vial IVPUSH 11/05/22 03:11 5 mg ONCE ONE Administration Medical Decision Making Medical Decision Making [facility] Narrative: -deposition EKG: Atrial fibrillation with RVR, heart rate 130, [address] segment depression and A5 A6, reciprocal changes, no T-wave inversions, QTC 523 -patient was given 1 dose of IV metoprolol 5 mg. -I reviewed patient's records. Patient was seen by Dr. Baker on October 30. Patient is to continue taking metoprolol and amiodarone, and patient was instructed to add digoxin. Also, Dr. Baker discussed with the patient the possible AV christy ablation and cardiac synchronization -after IV metoprolol, patient's heart rate remains in the 120s. Patient will be given 1 dose of IV Cardizem. If patient does not respond well, he may need to be admitted for a Cardizem drip for heart rate control -after the Cardizem push, patient did not respond as expected, heart rate 123, blood pressure 131/68, patient being started on a Cardizem drip. -I discussed the patient with Dr. Gavin, pt being admitted Differential Diagnosis Differential Diagnoses: The differential diagnosis associated with the presentation includes (Holiday heart, atrial fibrillation, atrial flutter) Admission/Observation Consideration of admission/observation: Escalation of care including admission/observation considered Consult Healthcare Provider Management of the patient was discussed with: Hospitalist Lab Data MDM Lab Attestation statement: I reviewed the patient's lab results. 11/05/22 02:42 11/05/22 02:42 Labs: Lab Results 11/05/22 11/05/22 11/05/22 Range/Units 02:42 02:42 03:01 WBC 7.8 (4.8-10.8) X10*3/uL RBC 4.07 L (4.60-5.80) X10*6/uL Hgb 14.4 (14.0-18.0) g/dl Hct 42.4 (42.0-52.0) % MCV 104.2 H (80.0-98.0) fL MCH 35.4 H (27.0-33.0) pg MCHC 34.0 (31.0-36.0) g/dl RDW 14.4 (11.0-16.0) % Plt Count 140 L D (160-400) X10*3/uL MPV 10.0 (9.4-12.4) fL Immature Gran % (Auto) 0.5 H (0.0-0.4) % Neut % (Auto) 76.2 H (45-73) % Lymph % (Auto) 17.4 L (20-40) % [place] % (Auto) 4.9 (2-11) % Eos % (Auto) 0.5 (0-4) % Baso % (Auto) 0.5 (0-2) % Lymph # (Auto) 1.4 (1.2-4.9) X10*3/uL [place] # (Auto) 0.4 (0.1-1.2) X10*3/uL Eos # (Auto) 0.0 (0.0-0.4) X10*3/uL Baso # (Auto) 0.0 (0.0-0.2) X10*3/uL Abs Immat Gran (auto) 0.04 H (0.00-0.03) X10*3/uL Absolute Neuts (auto) 5.9 (2.0-8.3) x10*3/uL Absolute Nucleated RBC 0.000 (0.0-0.012) X10*3/uL Nucleated RBC % (auto) 0.0 (0.0-0.2) /100WBC Sodium 142 (135-145) mmol/L Potassium 3.6 D (3.3-5.1) mmol/L Chloride 107 (96-108) mmol/L Carbon Dioxide 21 L (22-29) mmol/L Anion Gap 18 (12-20) BUN 13 (9-16) mg/dL Creatinine 1.24 (0.5-1.4) mg/dL Estim Creat Clear Calc 76.2 Estimated GFR > 60 Random Glucose 166 H (60-115) mg/dL Calcium 8.7 (8.4-10.2) mg/dL Magnesium (1.6-2.6) mg/dL Total Bilirubin (0.0-1.0) mg/dL Direct Bilirubin (0.0-0.5) mg/dL AST (5-37) U/L ALT (0-40) U/L Alkaline Phosphatase (39-117) U/L Troponin I High Sens 24.5 (<3.5-35.0) ng/L Total Protein (6.5-8.0) g/dL Albumin (3.5-5.0) g/dL Lipase (8-78) U/L Urine Color Urine Appearance Urine pH (5.0-9.0) Ur Specific [place] (1.005-1.025) Urine Protein (Neg-Trace) mg/dL Urine Glucose (UA) (Negative) mg/dL Urine Ketones (Negative) mg/dL Urine Blood (Negative) Urine Nitrite (Negative) Ur Leukocyte Esterase (Negative) Urine RBC (0-2) /HPF Urine WBC (0-5) /HPF Ur Squamous Epith Cells (0-2) /HPF Urine Bacteria (None Seen) Hyaline Casts (0-2) /LPF Urine Opiates Screen (Not Detect) Urine Fentanyl Screen (Not Detect) Ur Barbiturates Screen (Not Detect) Ur Phencyclidine Scrn (Not Detect) Ur Amphetamines Screen (Not Detect) U Benzodiazepines Scrn (Not Detect) Urine Cocaine Screen (Not Detect) U Marijuana (THC) Screen (Not Detect) Ethyl Alcohol mg/dL 11/05/22 11/05/22 11/05/22 Range/Units 03:01 05:02 05:02 WBC (4.8-10.8) X10*3/uL RBC (4.60-5.80) X10*6/uL Hgb (14.0-18.0) g/dl Hct (42.0-52.0) % MCV (80.0-98.0) fL MCH (27.0-33.0) pg MCHC (31.0-36.0) g/dl RDW (11.0-16.0) % Plt Count (160-400) X10*3/uL MPV (9.4-12.4) fL Immature Gran % (Auto) (0.0-0.4) % Neut % (Auto) (45-73) % Lymph % (Auto) (20-40) % [place] % (Auto) (2-11) % Eos % (Auto) (0-4) % Baso % (Auto) (0-2) % Lymph # (Auto) (1.2-4.9) X10*3/uL [place] # (Auto) (0.1-1.2) X10*3/uL Eos # (Auto) (0.0-0.4) X10*3/uL Baso # (Auto) (0.0-0.2) X10*3/uL Abs Immat Gran (auto) (0.00-0.03) X10*3/uL Absolute Neuts (auto) (2.0-8.3) x10*3/uL Absolute Nucleated RBC (0.0-0.012) X10*3/uL Nucleated RBC % (auto) (0.0-0.2) /100WBC Sodium (135-145) mmol/L Potassium (3.3-5.1) mmol/L Chloride (96-108) mmol/L Carbon Dioxide (22-29) mmol/L Anion Gap (12-20) BUN (9-16) mg/dL Creatinine (0.5-1.4) mg/dL Estim Creat Clear Calc Estimated GFR Random Glucose (60-115) mg/dL Calcium (8.4-10.2) mg/dL Magnesium 1.7 (1.6-2.6) mg/dL Total Bilirubin 1.1 H (0.0-1.0) mg/dL Direct Bilirubin 0.4 (0.0-0.5) mg/dL AST 160 H (5-37) U/L ALT 56 H (0-40) U/L Alkaline Phosphatase 154 H (39-117) U/L Troponin I High Sens (<3.5-35.0) ng/L Total Protein 6.5 (6.5-8.0) g/dL Albumin 4.0 (3.5-5.0) g/dL Lipase 17 (8-78) U/L Urine Color Yellow Urine Appearance Clear Urine pH 6.0 (5.0-9.0) Ur Specific [place] 1.010 (1.005-1.025) Urine Protein 300 (3+) H (Neg-Trace) mg/dL Urine Glucose (UA) 100 H (Negative) mg/dL Urine Ketones Negative (Negative) mg/dL Urine Blood Trace H (Negative) Urine Nitrite Negative (Negative) Ur Leukocyte Esterase Negative (Negative) Urine RBC 0-2 (0-2) /HPF Urine WBC 0-5 (0-5) /HPF Ur Squamous Epith Cells 3-5 (0-2) /HPF Urine Bacteria Trace (None Seen) Hyaline Casts 0-2 (0-2) /LPF Urine Opiates Screen Not Detected (Not Detect) Urine Fentanyl Screen Not Detected (Not Detect) Ur Barbiturates Screen Not Detected (Not Detect) Ur Phencyclidine Scrn Not Detected (Not Detect) Ur Amphetamines Screen Not Detected (Not Detect) U Benzodiazepines Scrn Not Detected (Not Detect) Urine Cocaine Screen Not Detected (Not Detect) U Marijuana (THC) Screen Not Detected (Not Detect) Ethyl Alcohol 222 mg/dL Critical Care Time Critical Care Time Critical Care Time: Yes Total Critical Care Time: 75 Attestation: I have personally provided critical care time. Time includes review of lab data, radiology results, discussion with consultants, and monitoring for potential decompensation. Intervention performed as documented. Discharge Plan Discharge Clinical Impression: Atrial fibrillation with RVR, Alcohol abuse Patient Disposition: Admitted As Inpatient Prescriptions: No Action amiodarone 200 mg tablet 200 mg PO DAILY 90 Days Qty: 90 1RF Eliquis 5 mg tablet 5 mg PO BID Qty: 180 1RF furosemide 40 mg tablet 40 mg PO DAILY 90 Days Qty: 90 1RF Protocol: Hold for SBP< HOLD for SBP < : 90 thiamine mononitrate (vit B1) [Vitamin B-1 (mononitrate)] 100 mg tablet PO losartan 25 mg tablet 12.5 mg PO DAILY folic acid 1 mg tablet 1 mg PO DAILY spironolactone 25 mg tablet 25 mg PO DAILY potassium chloride 10 mEq tablet extended release 10 meq PO BID metoprolol succinate 50 mg tablet extended release 24 hr 50 mg PO BID Qty: 60 2RF Jardiance 10 mg tablet 10 mg PO DAILY Qty: 30 1RF
[2022-11-05] MEDS: Metoprolol Tartrate 5 MG/5 ML VIAL IVPUSH (03:17)
[2022-11-05 03:28] LABS: Alanine Aminotransferase 56 U/L (0-40); Alkaline Phosphatase 154 U/L (39-117); Aspartate Amino Transferase 160 U/L (5-37); Bilirubin Direct 0.4 mg/dL (0.0-0.5); Bilirubin Total 1.1 mg/dL (0.0-1.0); Ethanol 222 mg/dL; Lipase 17 U/L (8-78); Magnesium 1.7 mg/dL (1.6-2.6); Total Protein 6.5 g/dL (6.5-8.0); Troponin-I High Sensitivity 24.5 ng/L (<3.5-35.0)
--- NOTE | 2022-11-05 03:47 | PC.NURSE ---
Pt relating increased SOB. Will notify provider.
[2022-11-05] MEDS: Furosemide 20 MG/2 ML VIAL IVPUSH (03:53)
--- NOTE | 2022-11-05 03:54 | PC.NURSE ---
Oxygen saturation 91%. Oxygen reapplied at 4L per nasal cannula.
[2022-11-05] MEDS: dilTIAZem HCL 50 MG/10 ML VIAL 10 MG IVPUSH (04:50)
[2022-11-05 05:09] LABS: Appearance Urine Clear; Color Urine Yellow; Glucose Urine UA 100 mg/dL (Negative); Leukocyte Esterase Urine Negative (Negative); Nitrite Urine Negative (Negative); UMIC TRIGGER UACC YES; Urine Blood Trace (Negative); Urine Ketones Negative (Negative); Urine Protein 300 (3+) mg/dL (Neg-Trace)
[2022-11-05 05:13] LABS: Bacteria Urine Trace (None Seen); Hyaline Casts Urine 0-2 /LPF (0-2); RBC Urine 0-2 /HPF (0-2); WBC Urine 0-5 /HPF (0-5)
[2022-11-05 05:18] LABS: Amphetamine Screen Urine Not Detected (Not Detect); Barbiturates, Urine Not Detected (Not Detect); Benzodiazepines Screen Urine Not Detected (Not Detect); Cannabinoid Screen Urine Not Detected (Not Detect); Cocaine Screen Urine Not Detected (Not Detect); Fentanyl, urine Not Detected (Not Detect); Opiate Screen Urine Not Detected (Not Detect); Phencyclidine Screen Urine Not Detected (Not Detect)
[2022-11-05] MEDS: dilTIAZem HCL 125 MG in 0.9 % Sodium Chloride 100 ML 10 MG IVCONT (06:03)
[2022-11-05] MEDS: PHENobarbitaL sodium 130 MG/ML IM ONCE 286 MG IM (06:18)
--- NOTE | 2022-11-05 06:23 | MHC.EDTECH ---
pt is resting sitting in bed he uses the urinal, vitals has been taken and entered
--- NOTE | 2022-11-05 07:04 | PC.NURSE ---
Report to Nisha CROWDER for continued care.
--- NOTE | 2022-11-05 08:24 | PHA.MEDREC ---
Pharmacy Consult ? Medication Reconciliation Pharmacy has reviewed the medication reconciliation. I went down and spoke to him and he told me he takes four of his medications every other day. However all pharmacy claims say daily or BID, and per Dr Baker's last note the patient is to be taking them BID or daily. Patient could not identify which 4 he takes every other day.
--- NOTE | 2022-11-05 08:54 | PC.NURSE ---
pt moved into a hospital bed for comfort
[2022-11-05] MEDS: PHENobarbitaL sodium 130 MG/ML VIAL IM Q3Hx2 221 MG IM ×2 (09:38→12:52)
--- NOTE | 2022-11-05 11:21 | PM.IMHP ---
History of Present Illness Date of Service: 11/05/22 Attending physician on admission: Sameer Khan Chief Complaint: SOB Pt is a 57-year-old male with a PMH significant for?AFib on Eliquis, alcoholic hepatitis HTN, alcoholic cardiomyopathy, and HFrEF who presents to the ED with?shortness of breath and palpitations since Wednesday night when he was sitting watching TV. Patient denies chest pain but feels a chest tightness/heaviness with inspiration. Pt has a long history of AFib with RVR, seen by Dr. Baker in Cardiology. Patient underwent a CORTNEY guided cardioversion on 10/22/2022, but was already back in AFib with RVR on 10/29/2022. Patient states that he has been compliant with all medications. Patient also complains nausea and diffuse abdominal pain which he describes as sharp, stabbing and rates 10/10 which began an hour or 2 ago. Radiates to his back. Also notes his belly now feels swollen and distended. Patient denies fever, chills, diarrhea. Of note, patient acknowledges a long history of alcohol use but denies any abuse except for a period following his divorce. Says no recent sustained drinking. Says his last drink was 4-5 days ago over the weekend when he had 1-2 mixed drinks. However, ethyl alcohol level was 222 at time of presentation to the ED. In the ED patient was afebrile but tachycardic up to the 140s and hypertensive up to 141/90. Labs were significant for chronic MCV of 104.2, platelets 140, the AST of 160, ALT of 56, alk-phos of 154. Creatinine slightly elevated at 1.24. Electrolytes normal. Tox screen negative except for ethyl alcohol of 222. CXR showed mild interstitial edema with mildly enlarged cardiac silhouette. EKG demonstrated AFib with RVR of 130 with incomplete LBBB and nonspecific ST and T-wave abnormalities. CORTNEY on 10/07/2022 showed severely reduced LV EF of 10-15% with enlarged left atrium and mild mitral regurgitation. Pt was treated with metoprolol, furosemide, and started on diltiazem drip and phenobarb protocol. Pt will be admitted to the hospital for symptomatic AFib with RVR alcohol withdrawal. Review of Systems Review of Systems: Shortness of breath Palpitations Inspiratory pleuritic chest pain Diffuse sharp, stabbing abdominal pain radiating to the back Distended abdomen Nausea, no vomiting Denies fever, chills Yes all other systems are reviewed and are negative [facility] Medical History Alcohol dependence with withdrawal Alcoholic hepatitis Atrial fibrillation with rapid ventricular response HTN (hypertension) Family History Father CAD (coronary artery disease) Mother Atrial fibrillation Surgical History No pertinent past surgical history Social History Household Members: None Housing: Apartment Do you presently have visiting nurse or other home services: No Unable to assess alcohol history related to: Unable to respond Alcohol intake: current Alcohol intake frequency: does not drink Alcohol type: hard liquor Patient Tobacco Use Status: Never used Tobacco service: No Current occupational status: employed Meds Allergies Allergy/AdvReac Type Severity Reaction Status Date / Time No Known Allergies Allergy Verified 08/31/22 03:36 [No Known Allergies*] Active Medications: Current Medications Diltiazem HCl 125 mg/ Sodium (Chloride) 125 mls @ 0 mls/hr IVCONT .Q0M [facility]; Protocol Last Admin: 11/05/22 06:03 Dose: 10 mg/hr, 10 mls/hr Pharmacy Consult (Consult Rx Perform Med Rec) 1 each MISCELLANE ONCE PRN PRN Reason: Consult order Pharmacy Consult (Consult Rx Etoh Phenob Im/Po) 1 each MISCELLANE ONCE PRN; Protocol PRN Reason: Consult order Phenobarbital (Phenobarbital 15 Mg Tablet) 45 mg PO BID [facility]; Protocol Stop: 11/07/22 09:01 Phenobarbital (Phenobarbital 30 Mg Tablet) 30 mg PO BID [facility]; Protocol Stop: 11/09/22 09:01 Phenobarbital (Phenobarbital 15 Mg Tablet) 15 mg PO DAILY [facility]; Protocol Stop: 11/11/22 09:01 Phenobarbital Sodium (Phenobarbital Sodium 130 Mg/Ml Vial Im Q3hx2) 221 mg IM Q3H [facility] Stop: 11/05/22 12:01 Last Admin: 11/05/22 09:38 Dose: 221 mg Home Medications Medication Instructions Recorded Confirmed Last Taken Type folic acid 1 mg tablet 1 mg PO DAILY 09/16/22 11/05/22 10/06/22 History losartan 25 mg tablet 12.5 mg PO DAILY 09/16/22 11/05/22 10/06/22 History potassium chloride 10 mEq 10 meq PO BID 09/16/22 11/05/22 10/06/22 History tablet,extended release spironolactone 25 mg tablet 25 mg PO DAILY 09/16/22 11/05/22 10/06/22 History thiamine mononitrate (vit B1) 100 200 mg PO DAILY 09/16/22 11/05/22 10/06/22 History mg tablet (Vitamin B-1 (mononitrate)) Physical Exam Vital Signs and Narrative: Vital Signs: Last Vital Signs Temp 97.5 F 11/05/22 10:18 Pulse 88 11/05/22 10:18 Resp 18 11/05/22 10:18 BP 115/89 11/05/22 10:18 Pulse Ox 99 11/05/22 10:18 O2 Del Method Room Air 11/05/22 10:18 O2 Flow Rate 4 11/05/22 04:26 BMI result Body Mass Index 28.7 Constitutional: Alert, uncomfortable-looking, in no acute distress. Mental Status: Oriented to person, place and time. Eyes: Pupils are equal, round, and reactive to light. Sclera nonicteric. Ear, Nose, and Throat: Oropharynx clear, mucous membranes moist. Ears and nose without deformities. Trachea midline. Respiratory: Expiratory rhonchi in lower lobes. Cardiovascular: Irregularly irregular rhythm, tachycardic. Gastrointestinal: Abdomen firm, distended, diffusely tender, more on the right side. Neurologic: Cranial nerves II-XII are grossly intact bilaterally. No focal neurological deficits. Moves all extremities spontaneously. Skin: No rashes or lesions noted. Musculoskeletal: No cyanosis or clubbing. Extremities: 1+ bilateral pitting edema. Psychiatric: Normal mood and affect. Results Labs 11/05/22 02:42 11/05/22 02:42 Labs: Laboratory Results - last 24 hr 11/05/22 11/05/22 11/05/22 02:42 02:42 03:01 MCV 104.2 H MCH 35.4 H MCHC 34.0 RDW 14.4 Plt Count 140 L D MPV 10.0 Immature Gran % (Auto) 0.5 H Neut % (Auto) 76.2 H Lymph % (Auto) 17.4 L [place] % (Auto) 4.9 Eos % (Auto) 0.5 Baso % (Auto) 0.5 Lymph # (Auto) 1.4 [place] # (Auto) 0.4 Eos # (Auto) 0.0 Baso # (Auto) 0.0 Abs Immat Gran (auto) 0.04 H Absolute Neuts (auto) 5.9 Absolute Nucleated RBC 0.000 Nucleated RBC % (auto) 0.0 Anion Gap 18 Estim Creat Clear Calc 76.2 Estimated GFR > 60 Random Glucose 166 H Calcium 8.7 Magnesium Total Bilirubin Direct Bilirubin AST ALT Alkaline Phosphatase Troponin I High Sens 24.5 Total Protein Albumin Lipase Urine Color Urine Appearance Urine pH Ur Specific [place] Urine Protein Urine Glucose (UA) Urine Ketones Urine Blood Urine Nitrite Ur Leukocyte Esterase Urine RBC Urine WBC Ur Squamous Epith Cells Urine Bacteria Hyaline Casts Urine Opiates Screen Urine Fentanyl Screen Ur Barbiturates Screen Ur Phencyclidine Scrn Ur Amphetamines Screen U Benzodiazepines Scrn Urine Cocaine Screen U Marijuana (THC) Screen Ethyl Alcohol 11/05/22 11/05/22 11/05/22 03:01 05:02 05:02 MCV MCH MCHC RDW Plt Count MPV Immature Gran % (Auto) Neut % (Auto) Lymph % (Auto) [place] % (Auto) Eos % (Auto) Baso % (Auto) Lymph # (Auto) [place] # (Auto) Eos # (Auto) Baso # (Auto) Abs Immat Gran (auto) Absolute Neuts (auto) Absolute Nucleated RBC Nucleated RBC % (auto) Anion Gap Estim Creat Clear Calc Estimated GFR Random Glucose Calcium Magnesium 1.7 Total Bilirubin 1.1 H Direct Bilirubin 0.4 AST 160 H ALT 56 H Alkaline Phosphatase 154 H Troponin I High Sens Total Protein 6.5 Albumin 4.0 Lipase 17 Urine Color Yellow Urine Appearance Clear Urine pH 6.0 Ur Specific [place] 1.010 Urine Protein 300 (3+) H Urine Glucose (UA) 100 H Urine Ketones Negative Urine Blood Trace H Urine Nitrite Negative Ur Leukocyte Esterase Negative Urine RBC 0-2 Urine WBC 0-5 Ur Squamous Epith Cells 3-5 Urine Bacteria Trace Hyaline Casts 0-2 Urine Opiates Screen Not Detected Urine Fentanyl Screen Not Detected Ur Barbiturates Screen Not Detected Ur Phencyclidine Scrn Not Detected Ur Amphetamines Screen Not Detected U Benzodiazepines Scrn Not Detected Urine Cocaine Screen Not Detected U Marijuana (THC) Screen Not Detected Ethyl Alcohol 222 Imaging Radiologist's Impressions: Impressions Chest X-Ray 11/05/22 02:50 IMPRESSION: Mild interstitial edema. Mildly enlarged cardiac silhouette. Assessment and Plan (1) Atrial fibrillation with rapid ventricular response: Status: Acute (2) Alcohol use disorder, moderate, dependence: Status: Acute Plan Pt is a 57-year-old male with a PMH significant for?AFib on Eliquis, alcoholic hepatitis HTN, alcoholic cardiomyopathy, and HFrEF who presents to the ED with?shortness of breath and palpitations since Wednesday night when he was sitting watching TV. While in the ED patient also complained of abdominal pain and distension. Patient will be admitted to the hospital on telemetry treatment further evaluation of AFib with RVR and abdominal pain and distention. AFib with RVR Patient came in with AFib with RVR in 140s Possibly secondary to chronic alcohol use Patient with recent cardioversion on 10/07/2022 Patient states compliant with medications Continue diltiazem drip Continue home amiodarone, metoprolol, Eliquis Cardiology consult Monitor on telemetry Alcohol Use Disorder Patient did not present in acute withdrawal, but with ethyl alcohol level of 222 Has long history of heavy alcohol use and treatment for alcohol withdrawal in the past No tremors, hallucinations, diaphoresis Phenobarb protocol CIWA scale Daily multivitamin, folic acid, thiamine Addiction Medicine consult Monitor on telemetry Abdominal pain and distension Likely secondary to the ascites secondary to chronic alcohol use Check CT of abdomen and pelvis with contrast History of HFrEF Secondary to alcohol abuse Appears to be well compensated, euvolemic Continue home furosemide Low-salt diet Hypertension Stable Continue valsartan [id number] diabetes type 2 Continue Jardiance Diabetic diet Full Code Attending:?Dr. Khan DVT Prophylaxis: On Eliquis Pt will require a hospitalization of at least two nights for treatment of AFib with RVR and further evaluation of abdominal distention and pain. Time Spent With Patient Time: Total time managing care of this patient today ____ minutes. Quality Stroke Does the patient have a stroke diagnosis?: No VTE Prior VTE?: No VTE Risk Level:: Medical - moderate - high VTE Device Contraindication: Treatment Not Indicated VTE Drug Contraindication: N/A - Med Ordered
[2022-11-05] MEDS: Morphine Sulfate 4 MG/ML CARTRIDGE IM (12:14)
[2022-11-05] MEDS: ondansetron HCL 4 MG/2 ML VIAL IVPUSH (12:14)
[2022-11-05] MEDS: Multivitamin TABLET 1 TAB PO (14:17)
[2022-11-05] MEDS: Losartan Potassium 25 MG TABLET 12.5 MG PO (14:17)
[2022-11-05] MEDS: Furosemide 40 MG TABLET PO (14:17)
[2022-11-05] MEDS: Folic Acid 1 MG TABLET PO (14:18)
--- NOTE | 2022-11-05 14:18 | MHC.RECOVRN ---
This music writer met w/ patient after receiving addiction consult. T/W familiar with patient, patient had attended intake appt 05/26 for LETICIA initiation. Patient reports since last hospitalization, has decreased use. Patient reports drinking on Wednesday nights only, half a bottle of a medium sized bottle of hard alcohol . Patient at first stated last use was 2 weeks ago. T/W mentioned BAL 222, patient then reports last use [employer] Wednesday10/31/22. Patient reports had tried Naltrexone in June 2022 and did not find it helpful. Patient states in the past had attended recovery support groups which fletchert did not find helpful. Patient states feels like has a handle on it, has been able to maintain goal of decreasing use and only drinking on the weekend . Patient reports interest in attending recovery support groups in the community. T/W and patient discussed meetings in the area, plan of care for t/w to drop off resources for patient to access in the community.
--- NOTE | 2022-11-05 16:36 | PC.NURSE ---
called placed to pharmacy x2 for jardiance not in pyxis
--- NOTE | 2022-11-05 16:46 | PM.CNCAR ---
History of Present Illness History of Present Illness Date of Service: 11/05/22 Requesting physician: Lauren Babin Consult reason: atrial fibrillation and other (Cardiomyopathy) Chief complaint: AFib with RVR Narrative: I was consulted to see Abner in cardiology consultation today for atrial fibrillation as well as prior history of significant cardiomyopathy. Patient was recently seen in the office after he had undergone CORTNEY guided cardioversion and was noted to be in rapid atrial fibrillation. At that time was referred to EPS for outpatient consideration for AV christy ablation with cardiac resynchronization device. However he says he has not heard from [facility] as yet. He came to the emergency room because he was having palpitations and shortness of breath. He has not noticed any leg edema. No lightheadedness, syncope. He denies use of alcohol but says he had some alcohol last Wednesday but his alcohol level is at 222 which is highly unusual and likely that he is using more alcohol than he is committing to. He said he has been compliant with his medications. However I have started him on digoxin, do not see on his medication list. His blood pressure is stable. He does not seem to be withdrawing. He denies any chest pain or orthopnea PND or leg edema at this point in time. Review of Systems Constitutional: Constitutional: Reports no additional constitutional complaints ENT: Reports system reviewed and no additional complaints, except as documented Cardiovascular: Cardiovascular: Denies chest pain, Reports rapid heart rate, Denies leg edema, Denies lightheadedness, Denies Loss of Consciousness and Reports dyspnea Respiratory: Respiratory: Reports no additional respiratory complaints and Reports dyspnea Gastrointestinal: Gastrointestinal: Reports no additional gastrointestinal complaints Genitourinary: Genitourinary: Reports no additional male genitourinary complaints Musculoskeletal: Musculoskeletal: Reports no additional musculoskeletal complaints Integumentary/Breasts: Skin/Breast: Reports system reviewed and no additional complaints, except as docu Neurologic: Reports system reviewed and no additional complaints, except as documented [facility] Past Medical History Medical History Alcohol dependence with withdrawal Alcoholic hepatitis Atrial fibrillation with rapid ventricular response HTN (hypertension) Family History Family History Father CAD (coronary artery disease) Mother Atrial fibrillation Surgical History Surgical History No pertinent past surgical history Social History Social History Household Members: None Housing: Apartment Do you presently have visiting nurse or other home services: No Unable to assess alcohol history related to: Unable to respond Alcohol intake: current Alcohol intake frequency: does not drink Alcohol type: hard liquor Patient Tobacco Use Status: Never used Tobacco Advance Directives: No Advance Directives Information Provided: Yes Nutrition Risks: No Nutritional Risk service: No Current occupational status: employed Meds Allergies Allergy/AdvReac Type Severity Reaction Status Date / Time No Known Allergies Allergy Verified 08/31/22 03:36 [No Known Allergies*] Active Medications: Current Medications Acetaminophen (Acetaminophen 325 Mg Tablet) 650 mg PO Q6H PRN PRN Reason: Pain, Mild (Pain Scale 1-3) Amiodarone HCl (Amiodarone Hcl 200 Mg Tablet) 200 mg PO DAILY [facility] Apixaban (Apixaban 5 Mg Tablet) 5 mg PO BID [facility] Docusate Sodium (Docusate Sodium 100 Mg Capsule) 100 mg PO DAILY PRN PRN Reason: Constipation Empagliflozin (Empagliflozin 10 Mg Tablet) 10 mg PO DAILY [facility] Folic Acid (Folic Acid 1 Mg Tablet) 1 mg PO DAILY [facility] Last Admin: 11/05/22 14:18 Dose: 1 mg Furosemide (Furosemide 40 Mg Tablet) 40 mg PO DAILY [facility]; Protocol Last Admin: 11/05/22 14:17 Dose: 40 mg Diltiazem HCl 125 mg/ Sodium (Chloride) 125 mls @ 0 mls/hr IVCONT .Q0M [facility]; Protocol Last Admin: 11/05/22 06:03 Dose: 10 mg/hr, 10 mls/hr Losartan Potassium (Losartan Potassium 25 Mg Tablet) 12.5 mg PO DAILY [facility]; Protocol Last Admin: 11/05/22 14:17 Dose: 12.5 mg Metoprolol Succinate (Metoprolol Succinate Er 50 Mg Tab.Er.24h) 50 mg PO BID [facility]; Protocol Morphine Sulfate (Morphine Sulfate 4 Mg/Ml Cartridge) 4 mg IM Q4H PRN; Protocol PRN Reason: Pain, Severe (Pain Scale 7-10) Last Admin: 11/05/22 12:14 Dose: 4 mg Multivitamins/Vitamin C (Multivitamin Tablet) 1 tab PO DAILY [facility] Last Admin: 11/05/22 14:17 Dose: 1 tab Ondansetron HCl (Ondansetron Hcl 4 Mg/2 Ml Vial) 4 mg IVPUSH Q4H PRN PRN Reason: Nausea Last Admin: 11/05/22 12:14 Dose: 4 mg Pharmacy Consult (Consult Rx Perform Med Rec) 1 each MISCELLANE ONCE PRN PRN Reason: Consult order Pharmacy Consult (Consult Rx Etoh Phenob Im/Po) 1 each MISCELLANE ONCE PRN; Protocol PRN Reason: Consult order Phenobarbital (Phenobarbital 15 Mg Tablet) 45 mg PO BID [facility]; Protocol Stop: 11/07/22 09:01 Phenobarbital (Phenobarbital 30 Mg Tablet) 30 mg PO BID [facility]; Protocol Stop: 11/09/22 09:01 Phenobarbital (Phenobarbital 15 Mg Tablet) 15 mg PO DAILY [facility]; Protocol Stop: 11/11/22 09:01 Potassium Chloride (Potassium Chloride Er 10 Meq Tablet.Er) 10 meq PO BID [facility] Sodium Chloride (0.9 % Sodium Chloride Flush 3 Ml Syringe) 3 ml IVFLUSH QSHIFT [facility] Spironolactone (Spironolactone 25 Mg Tablet) 25 mg PO DAILY [facility]; Protocol Thiamine HCl (Thiamine Hcl 100 Mg Tablet) 200 mg PO DAILY [facility] Last Admin: 11/05/22 14:21 Dose: Not Given Home Medications Medication Instructions Recorded Confirmed Last Taken Type folic acid 1 mg tablet 1 mg PO DAILY 09/16/22 11/05/22 10/06/22 History losartan 25 mg tablet 12.5 mg PO DAILY 09/16/22 11/05/22 10/06/22 History potassium chloride 10 mEq 10 meq PO BID 09/16/22 11/05/22 10/06/22 History tablet,extended release spironolactone 25 mg tablet 25 mg PO DAILY 09/16/22 11/05/22 10/06/22 History thiamine mononitrate (vit B1) 100 200 mg PO DAILY 09/16/22 11/05/22 10/06/22 History mg tablet (Vitamin B-1 (mononitrate)) Physical Exam Vital Signs: Vital Signs: Last Vital Signs Temp 97.5 F 11/05/22 10:18 Pulse 107 H 11/05/22 12:13 Resp 21 H 11/05/22 12:13 BP 128/88 11/05/22 12:13 Pulse Ox 99 11/05/22 12:13 O2 Del Method Room Air 11/05/22 12:13 O2 Flow Rate 4 11/05/22 04:26 BMI result Body Mass Index 30.2 Const: General: cooperative, comfortable, no acute distress, alert and awake Nutritional Appearance: overweight Orientation/consciousness: patient oriented x3 HEENT: Head: Yes normocephalic and Yes atraumatic Neck: Neck: Yes trachea midline, Yes supple and Yes no JVD Resp: Effort & Inspection: normal respiratory effort Auscultation: clear to auscultation bilaterally Cardio: Jugular venous distension: no JVD Palpation: abnormal PMI displaced PMI Rate: tachycardic Rhythm: abnormal rhythm irregularly irregular GI: Auscultation: normal bowel sounds Skin: General skin exam: no rashes or lesions noted Neuro: General: patient oriented x3 and no focal motor deficits Extrem: General: Yes no clubbing, cyanosis or edema Objective Labs and Meds 11/05/22 02:42 11/05/22 02:42 Lab results: Laboratory Results - last 24 hr 11/05/22 11/05/22 11/05/22 02:42 02:42 03:01 WBC 7.8 RBC 4.07 L Hgb 14.4 Hct 42.4 MCV 104.2 H MCH 35.4 H MCHC 34.0 RDW 14.4 Plt Count 140 L D MPV 10.0 Immature Gran % (Auto) 0.5 H Neut % (Auto) 76.2 H Lymph % (Auto) 17.4 L [place] % (Auto) 4.9 Eos % (Auto) 0.5 Baso % (Auto) 0.5 Lymph # (Auto) 1.4 [place] # (Auto) 0.4 Eos # (Auto) 0.0 Baso # (Auto) 0.0 Abs Immat Gran (auto) 0.04 H Absolute Neuts (auto) 5.9 Absolute Nucleated RBC 0.000 Nucleated RBC % (auto) 0.0 Sodium 142 Potassium 3.6 D Chloride 107 Carbon Dioxide 21 L Anion Gap 18 BUN 13 Creatinine 1.24 Estim Creat Clear Calc 76.2 Estimated GFR > 60 Random Glucose 166 H Calcium 8.7 Magnesium Total Bilirubin Direct Bilirubin AST ALT Alkaline Phosphatase Troponin I High Sens 24.5 Total Protein Albumin Lipase Urine Color Urine Appearance Urine pH Ur Specific [place] Urine Protein Urine Glucose (UA) Urine Ketones Urine Blood Urine Nitrite Ur Leukocyte Esterase Urine RBC Urine WBC Ur Squamous Epith Cells Urine Bacteria Hyaline Casts Urine Opiates Screen Urine Fentanyl Screen Ur Barbiturates Screen Ur Phencyclidine Scrn Ur Amphetamines Screen U Benzodiazepines Scrn Urine Cocaine Screen U Marijuana (THC) Screen Ethyl Alcohol 11/05/22 11/05/22 11/05/22 03:01 05:02 05:02 WBC RBC Hgb Hct MCV MCH MCHC RDW Plt Count MPV Immature Gran % (Auto) Neut % (Auto) Lymph % (Auto) [place] % (Auto) Eos % (Auto) Baso % (Auto) Lymph # (Auto) [place] # (Auto) Eos # (Auto) Baso # (Auto) Abs Immat Gran (auto) Absolute Neuts (auto) Absolute Nucleated RBC Nucleated RBC % (auto) Sodium Potassium Chloride Carbon Dioxide Anion Gap BUN Creatinine Estim Creat Clear Calc Estimated GFR Random Glucose Calcium Magnesium 1.7 Total Bilirubin 1.1 H Direct Bilirubin 0.4 AST 160 H ALT 56 H Alkaline Phosphatase 154 H Troponin I High Sens Total Protein 6.5 Albumin 4.0 Lipase 17 Urine Color Yellow Urine Appearance Clear Urine pH 6.0 Ur Specific [place] 1.010 Urine Protein 300 (3+) H Urine Glucose (UA) 100 H Urine Ketones Negative Urine Blood Trace H Urine Nitrite Negative Ur Leukocyte Esterase Negative Urine RBC 0-2 Urine WBC 0-5 Ur Squamous Epith Cells 3-5 Urine Bacteria Trace Hyaline Casts 0-2 Urine Opiates Screen Not Detected Urine Fentanyl Screen Not Detected Ur Barbiturates Screen Not Detected Ur Phencyclidine Scrn Not Detected Ur Amphetamines Screen Not Detected U Benzodiazepines Scrn Not Detected Urine Cocaine Screen Not Detected U Marijuana (THC) Screen Not Detected Ethyl Alcohol 222 Imaging Radiologist's impression: Impressions Chest X-Ray 11/05/22 02:50 IMPRESSION: Mild interstitial edema. Mildly enlarged cardiac silhouette. Assessment and Plan (1) Atrial fibrillation with RVR: Status: Acute Atrial fibrillation rapid ventricular response in this middle-aged man with questionable compliance. In the past he has been noncompliant and continues to seem like using alcohol. His alcohol level significantly elevated. His management is difficult and he has failed rhythm control approach with recent CORTNEY guided cardioversion. He is still maintain on amiodarone and has been referred to electrophysiology as [facility] he said he has not heard back as yet. He required AV christy ablation with cardiac resynchronization device. For now I would treat his alcohol withdrawal and continue amiodarone p.o. for now. Also would switch to metoprolol 25 mg q.6 hours. Will give him digoxin IV push 0.25 mg x3 doses. Continue full oral anticoagulation Eliquis. If remains in in the hospital and alcohol withdrawal as completed will transfer to [facility] for inpatient consideration for AV christy ablation and cardiac resynchronization therapy. (2) Chronic HFrEF (heart failure with reduced ejection fraction): Status: Acute Severe nonischemic cardiomyopathy suspected to be alcoholic and/or tachycardia mediated cardiomyopathy. Continues to use alcohol as per alcohol levels are high. Continue Jardiance, Lasix, low-dose losartan and metoprolol for neurohormonal modulation. He does appear to be in overt heart failure but it as risk for heart failure given his prior history with poor LV systolic function persistent atrial fibrillation. Treat alcohol withdrawal. Will continue to follow with you Time Spent With Patient Time: Total time managing care of this patient today ____ minutes. Procedures Date of Service Date of Service: 11/05/22
[2022-11-05] MEDS: Empagliflozin 10 MG TABLET PO (16:59)
[2022-11-05] MEDS: Digoxin 0.125 MG TABLET 0.25 MG PO (17:40)
[2022-11-05] MEDS: Metoprolol Tartrate 25 MG TABLET PO ×2 (17:40→20:45)
--- NOTE | 2022-11-05 18:50 | PM.EVENT ---
Event Note Date of Service: 11/05/22 Event Note: Addendum: spoke with pt, who admitted he is not always compliant with his medications. Says there are just some days he forgets/is too busy to take them. Tried to stress to him the importance of medicine adherence as well as alcohol cessation. Patient's CT scan came back showing a new wedge-shaped parenchymal opacities throughout the right kidney suggesting renal infarction although pyelonephritis cannot be excluded. Also noted a small volume of ascites possibly minimally decreased from prior study. Also shows interval improvement in the previously seen consolidative nodular opacities in the bilateral lung bases, and a 1.4 cm liver lesion present since 2017 when it measured 1.3 cm, possibly suggestive of a hemangioma. Patient's UA was negative for UTI. Patient will be started on therapeutic Lovenox and a consult to vascular surgery was placed. Time Spent With Patient Time: Total time managing care of this patient today ____ minutes.
[2022-11-05 19:30] LABS: INTERNATIONAL NORM RATIO 1.1 (0.9-1.1); Prothrombin Time 12.6 SEC (10.0-13.1)
[2022-11-05 19:32] LABS: Partial Thromboplastin Time 29.4 SEC (26.0-36.4)
[2022-11-05] MEDS: Enoxaparin Sodium 100 MG/ML SYRINGE SUBCUT (20:43)
[2022-11-05] MEDS: Potassium Chloride ER 10 MEQ TABLET.ER PO (20:45)
[2022-11-05] MEDS: PHENobarbitaL 15 MG TABLET 45 MG PO (20:45)
[2022-11-05] MEDS: Digoxin 0.25 MG TABLET PO (23:13)
[2022-11-05] MEDS: 0.9 % Sodium Chloride Flush 3 ML SYRINGE IVFLUSH (23:14)
[2022-11-06] VITALS: BP 137/82; PULSE 90; RESP 15; TEMP 36.6; O2SAT 95
--- NOTE | 2022-11-06 01:16 | PC.NURSE ---
Pt refuses bed alarm and camera in room.
[2022-11-06 04:00] VITALS: BP 127/86; PULSE 102; RESP 15; TEMP 36.4; O2SAT 95
[2022-11-06 05:35] VITALS: PULSE 114
[2022-11-06] MEDS: Digoxin 0.125 MG TABLET 0.25 MG PO (05:36)
[2022-11-06 07:03] LABS: MANUAL DIFF FLAG NO
[2022-11-06 07:10] LABS: Basophils Percent Auto 0.1 % (0-2); Eosinophils Percent Auto 0.1 % (0-4); Hematocrit 39.6 % (42.0-52.0); Hemoglobin 13.3 g/dl (14.0-18.0); Imm Gran Abs Auto 0.08 X10*3/uL (0.00-0.03); Imm Gran Pct Auto 0.9 % (0.0-0.4); Lymphocytes Absolute Auto 0.7 X10*3/uL (1.2-4.9); Lymphocytes Percent Auto 7.3 % (20-40); Mean Corpuscular HGB Conc 33.6 g/dl (31.0-36.0); Mean Corpuscular Hemoglobin 35.8 pg (27.0-33.0); Mean Corpuscular Volume 106.5 fL (80.0-98.0); Monocytes Absolute Auto 0.9 X10*3/uL (0.1-1.2); Neutrophils Absolute Auto 7.3 x10*3/uL (2.0-8.3); Neutrophils Percent Auto 81.6 % (45-73); Platelet Count 112 X10*3/uL (160-400); Red Blood Count 3.72 X10*6/uL (4.60-5.80); White Blood Count 8.9 X10*3/uL (4.8-10.8)
[2022-11-06 07:12] VITALS: BP 132/87; PULSE 105; RESP 20; TEMP 36.6; O2SAT 93
[2022-11-06 07:37] LABS: Alanine Aminotransferase 48 U/L (0-40); Alkaline Phosphatase 118 U/L (39-117); Anion Gap 18 (12-20); Aspartate Amino Transferase 55 U/L (5-37); Bilirubin Total 3.2 mg/dL (0.0-1.0); Blood Urea Nitrogen 10 mg/dL (9-16); Calcium 8.5 mg/dL (8.4-10.2); Carbon Dioxide 25 mmol/L (22-29); Chloride 95 mmol/L (96-108); Creatinine Clr Calc Pharmacy 71.8; Estimated Glomerular Filt Rate 55; Glucose Fasting 122 mg/dL (60-99); Potassium 3.3 mmol/L (3.3-5.1); Sodium 135 mmol/L (135-145); Total Protein 6.5 g/dL (6.5-8.0)
[2022-11-06 08:02] LABS: Anion Gap 17 (12-20); Blood Urea Nitrogen 10 mg/dL (9-16); Calcium 8.5 mg/dL (8.4-10.2); Carbon Dioxide 26 mmol/L (22-29); Chloride 95 mmol/L (96-108); Creatinine Clr Calc Pharmacy 71.8; Estimated Glomerular Filt Rate 55; Glucose Random 122 mg/dL (60-115); Magnesium 1.2 mg/dL (1.6-2.6); Potassium 3.3 mmol/L (3.3-5.1); Sodium 135 mmol/L (135-145)
[2022-11-06] MEDS: Thiamine HCL 100 MG TABLET 200 MG PO (08:19)
[2022-11-06] MEDS: Empagliflozin 10 MG TABLET PO (08:20)
[2022-11-06] MEDS: Folic Acid 1 MG TABLET PO (08:20)
[2022-11-06] MEDS: Metoprolol Tartrate 25 MG TABLET PO (08:20)
[2022-11-06] MEDS: Multivitamin TABLET 1 TAB PO (08:20)
[2022-11-06] MEDS: Amiodarone HCL 200 MG TABLET PO (08:20)
[2022-11-06] MEDS: Furosemide 40 MG TABLET PO (08:20)
[2022-11-06] MEDS: Spironolactone 25 MG TABLET PO (08:20)
[2022-11-06] MEDS: Potassium Chloride ER 10 MEQ TABLET.ER PO (08:20)
[2022-11-06] MEDS: Enoxaparin Sodium 100 MG/ML SYRINGE SUBCUT (08:21)
[2022-11-06] MEDS: Losartan Potassium 25 MG TABLET 12.5 MG PO (08:21)
[2022-11-06] MEDS: Magnesium Sulfate/H2O 2 GM/50 ML PIGGYBACK IV (08:21)
[2022-11-06] MEDS: PHENobarbitaL 15 MG TABLET 45 MG PO (08:21)
[2022-11-06] MEDS: 0.9 % Sodium Chloride Flush 3 ML SYRINGE IVFLUSH (08:32)
--- NOTE | 2022-11-06 08:34 | MHC.CM.PN ---
CM met with Patient at bedside. Patient lives alone in an apartment and he required no services nor DME CALL [employer].Home/self care is the goal and CM has initiated and will follow for dc planning. Patient is starting a new job on Wednesday. Patient has named his Sister/Lucy as his HCP. Patient has received Moderna/Covid vax x3 and his PCP is from [facility].
--- NOTE | 2022-11-06 11:22 | PM.PNCARD ---
Subjective Subjective Date of Service: 11/06/22 Principal diagnosis: Atrial fibrillation rapid ventricular response Interval history: Patient anxious to go home. Denies any symptoms and is declining any symptoms. Remains in atrial fibrillation rapid ventricular response. He denies palpitation shortness of breath at this time. He said he has to go home because he has to start a new job on Wednesday. Review of Systems Review of Systems Yes all other systems are reviewed and are negative Physical Exam Vital Signs: Last Vital Signs Temp 97.8 F 11/06/22 07:12 Pulse 105 H 11/06/22 07:12 Resp 20 11/06/22 07:12 BP 132/87 11/06/22 07:12 Pulse Ox 93 11/06/22 07:12 O2 Del Method Room Air 11/06/22 07:12 O2 Flow Rate 4 11/05/22 04:26 BMI result Body Mass Index 30.3 Const General: cooperative, comfortable, no acute distress, alert and awake Nutritional Appearance: overweight Orientation/consciousness: patient oriented x3 Neck Neck: Yes trachea midline, Yes supple and Yes no JVD Resp Effort & Inspection: normal respiratory effort Auscultation: clear to auscultation bilaterally Cardio Jugular venous distension: no JVD Palpation: abnormal PMI displaced PMI Rate: tachycardic Rhythm: abnormal rhythm irregularly irregular GI Auscultation: normal bowel sounds Skin General skin exam: no rashes or lesions noted Neuro General: patient oriented x3 and no focal motor deficits Extrem General: Yes no clubbing, cyanosis or edema Objective Labs and Meds 11/06/22 06:45 11/06/22 06:45 Lab results: Laboratory Results - last 24 hr 11/05/22 11/06/22 11/06/22 18:59 06:45 06:45 WBC 8.9 RBC 3.72 L Hgb 13.3 L Hct 39.6 L MCV 106.5 H MCH 35.8 H MCHC 33.6 RDW 14.0 Plt Count 112 L MPV 11.0 Immature Gran % (Auto) 0.9 H Neut % (Auto) 81.6 H Lymph % (Auto) 7.3 L [place] % (Auto) 10.0 Eos % (Auto) 0.1 Baso % (Auto) 0.1 Lymph # (Auto) 0.7 L [place] # (Auto) 0.9 Eos # (Auto) 0.0 Baso # (Auto) 0.0 Abs Immat Gran (auto) 0.08 H Absolute Neuts (auto) 7.3 Absolute Nucleated RBC 0.000 Nucleated RBC % (auto) 0.0 PT 12.6 INR 1.1 APTT 29.4 Sodium 135 Potassium 3.3 Chloride 95 L Carbon Dioxide 26 Anion Gap 17 BUN 10 Creatinine 1.35 Estim Creat Clear Calc 71.8 Estimated GFR 55 Random Glucose 122 H Fasting Glucose Calcium 8.5 Magnesium 1.2 L* Total Bilirubin AST ALT Alkaline Phosphatase Total Protein Albumin 11/06/22 06:45 WBC RBC Hgb Hct MCV MCH MCHC RDW Plt Count MPV Immature Gran % (Auto) Neut % (Auto) Lymph % (Auto) [place] % (Auto) Eos % (Auto) Baso % (Auto) Lymph # (Auto) [place] # (Auto) Eos # (Auto) Baso # (Auto) Abs Immat Gran (auto) Absolute Neuts (auto) Absolute Nucleated RBC Nucleated RBC % (auto) PT INR APTT Sodium 135 Potassium 3.3 Chloride 95 L Carbon Dioxide 25 Anion Gap 18 BUN 10 Creatinine 1.35 Estim Creat Clear Calc 71.8 Estimated GFR 55 Random Glucose Fasting Glucose 122 H Calcium 8.5 Magnesium Total Bilirubin 3.2 H AST 55 H ALT 48 H Alkaline Phosphatase 118 H Total Protein 6.5 Albumin 4.0 Imaging Radiologist's impression: Impressions Abdomen/Pelvis CT 11/05/22 14:43 IMPRESSION: 1. New wedge-shaped parenchymal opacities throughout the right kidney suggesting renal infarction, though pyelonephritis could appear similar this is less favored, recommend correlation with urinalysis. The renal arteries are suboptimally evaluated on this nonangiographic phase CT although appear grossly patent within limitations of this non angiographic phase CT. 2. Small volume ascites possibly minimally decreased from prior. 3. There has been interval improvement in the previously seen consolidative nodular opacities in the bilateral lung bases with a residual 1.1 cm nodular opacity in the right lung base and a 1.1 cm nodular opacity in the left lung base, which may reflect an improved infectious/inflammatory airways process however given findings persist recommend additional 3 month follow-up CT chest to ensure resolution. 4. A 1.4 cm liver lesion with discontinuous peripheral nodular enhancement, present since 2017 where it measured 1.3 cm, possibly reflective of a hemangioma. Progress Note: A&P Assessment and plan (1) Atrial fibrillation with RVR: Status: Acute Assessment and Plan: Atrial fibrillation with difficult control rate in this middle-aged man with severe LV systolic dysfunction heart failure with reduced ejection fraction. Without rate control he is going to be very high risk for recurrent hospitalization and including sudden cardiac that. He requires AV christy ablation with Bi V device. This was discussed with him as outpatient and was awaiting call from [facility]. However he came with for the symptoms. I thing best once his alcohol withdrawal as completed to transfer him as an inpatient for AV christy ablation Bi V device. However patient wants to said he wants to go home and will sign out against medical advise. Would increase his metoprolol to 50 mg q.6 if he remains in the hospital. Continue digoxin amiodarone for rate control at this point time. Continue full oral anticoagulation. He said he would be very compliant as an outpatient. This is difficult to believe as he has had multiple episodes of noncompliance in the past. (2) Chronic HFrEF (heart failure with reduced ejection fraction): Status: Acute Assessment and Plan: Heart failure with reduced ejection fraction marked LV systolic dysfunction. Was recently hospitalized [facility] with cardiogenic shock like picture. Clinically appears well and says he is not symptomatic. However difficult to assess as he is inclined to go home. He is currently on medical therapy for heart failure. Advised to continue to remain compliant with it. He said he is going be very compliant with that. (3) Alcohol abuse: Status: Acute Assessment and Plan: Unfortunately continues to decline that he is not using alcohol although his admission alcohol level was 222. I did confront 10 with this and he says that he might event alcohol drinking. Have advised him to completely abstain from alcohol use. Will continue to follow with him if he is inpatient. Time Spent With Patient Time: Total time managing care of this patient today ____ minutes. Progress Note: Quality Stroke Does the patient have a stroke diagnosis?: No Procedures Date of Service Date of Service: 11/06/22
--- NOTE | 2022-11-06 11:28 | MHC.CM.PN ---
Patient remains in Afib with RVR and he is not yet medically cleared for dc. Home is the goal and CM will continue to follow.
--- NOTE | 2022-11-06 11:39 | MHC.RECOVRN ---
Met with pt in 467 to follow up regarding AUD recovery resources. Pt reports once he is settled with his new job on Wednesday he will follow up with outpatient supports. Pt is requesting to leave AMA, pts RN is aware. Pt denies questions or concerns for t/w.
--- NOTE | 2022-11-06 15:44 | P.DS_ITS ---
DS: Providers Provider Date of Service: 11/06/22 Date of admission: 11/05/22 12:00 Date of discharge: 11/06/22 Primary care physician: Unknown Physician Consults: 11/05/22 12:03 Consult to Cardiology Routine Consulting Provider: [facility] Reason for consultation: Afib with RVR 11/05/22 12:55 Addiction Medicine Routine Consulting Provider: Addiction Covering Reason for consultation: Alcohol use disorder 11/05/22 18:46 Consult to Vascular Surgery Routine Consulting Provider: [facility] Reason for consultation: Right renal infarct DS: Diagnosis Discharge Diagnosis (1) Atrial fibrillation with RVR: Status: Acute (2) Chronic HFrEF (heart failure with reduced ejection fraction): Status: Acute (3) Alcohol abuse: Status: Acute DS: Summary Hospital Course Hospital Course: Patient admitted with alcohol withdrawal and abdominal pain. Noted to be in atrial fibrillation with rapid ventricular response. CT scan of the abdomen demonstrated possible infarct of left kidney. Admitted on phenobarb protocol. No overt signs of withdrawal during the admission. Per Cardiology plan to transfer to [facility] for ablation and pacer; patient adamantly refused. Discussed outcomes of not complying with therapy up to including . Patient is able to restate these and still wishes to sign out against medical advice Time Spent with Patient Time attestation: Total time managing care of this patient today ____ minutes. Discharge coordination time: Greater than 30 minutes Quality: Safe Use of Opioids Does Pt have an Active Cancer Diagnosis on the Problem List?: No Quality: Stroke Does the patient have a stroke diagnosis?: No Physical Exam Vital Signs: Vital Signs: Last Vital Signs Temp 97.8 F 11/06/22 07:12 Pulse 105 H 11/06/22 07:12 Resp 20 11/06/22 07:12 BP 132/87 11/06/22 07:12 Pulse Ox 93 11/06/22 07:12 O2 Del Method Room Air 11/06/22 07:12 O2 Flow Rate 4 11/05/22 04:26 BMI result Body Mass Index 30.3 DS: Data Data Completed and Pending Completed studies during hospitalization [Text1]: Procedures Detoxification Services for Substance Abuse Treatment (05/24/22) Insertion of Endotracheal Airway into Trachea, Via Natural or Artificial Opening (11/11/21) Respiratory Ventilation, 24-96 Consecutive Hours (11/11/21) Mu-Ism of Cardiac Rhythm, Single (11/11/21) Labs on day of discharge: Laboratory Results - last 24 hr 11/05/22 11/06/22 11/06/22 18:59 06:45 06:45 WBC 8.9 RBC 3.72 L Hgb 13.3 L Hct 39.6 L MCV 106.5 H MCH 35.8 H MCHC 33.6 RDW 14.0 Plt Count 112 L MPV 11.0 Immature Gran % (Auto) 0.9 H Neut % (Auto) 81.6 H Lymph % (Auto) 7.3 L [place] % (Auto) 10.0 Eos % (Auto) 0.1 Baso % (Auto) 0.1 Lymph # (Auto) 0.7 L [place] # (Auto) 0.9 Eos # (Auto) 0.0 Baso # (Auto) 0.0 Abs Immat Gran (auto) 0.08 H Absolute Neuts (auto) 7.3 Absolute Nucleated RBC 0.000 Nucleated RBC % (auto) 0.0 PT 12.6 INR 1.1 APTT 29.4 Sodium 135 Potassium 3.3 Chloride 95 L Carbon Dioxide 26 Anion Gap 17 BUN 10 Creatinine 1.35 Estim Creat Clear Calc 71.8 Estimated GFR 55 Random Glucose 122 H Fasting Glucose Calcium 8.5 Magnesium 1.2 L* Total Bilirubin AST ALT Alkaline Phosphatase Total Protein Albumin 11/06/22 06:45 WBC RBC Hgb Hct MCV MCH MCHC RDW Plt Count MPV Immature Gran % (Auto) Neut % (Auto) Lymph % (Auto) [place] % (Auto) Eos % (Auto) Baso % (Auto) Lymph # (Auto) [place] # (Auto) Eos # (Auto) Baso # (Auto) Abs Immat Gran (auto) Absolute Neuts (auto) Absolute Nucleated RBC Nucleated RBC % (auto) PT INR APTT Sodium 135 Potassium 3.3 Chloride 95 L Carbon Dioxide 25 Anion Gap 18 BUN 10 Creatinine 1.35 Estim Creat Clear Calc 71.8 Estimated GFR 55 Random Glucose Fasting Glucose 122 H Calcium 8.5 Magnesium Total Bilirubin 3.2 H AST 55 H ALT 48 H Alkaline Phosphatase 118 H Total Protein 6.5 Albumin 4.0 Discharge Plan Discharge Anticipated Discharge Date/Time: 11/06/22 15:43 Patient Disposition: Left Against Medical Advice Discharge Diagnosis: Alcohol withdrawal in backdrop of AFib with RVR Referrals: Physician,Unknown J [Primary Care Provider] - 1 Week Discharge Medications: No Action amiodarone 200 mg tablet 200 mg PO DAILY 90 Days Qty: 90 1RF Eliquis 5 mg tablet 5 mg PO BID Qty: 180 1RF furosemide 40 mg tablet 40 mg PO DAILY 90 Days Qty: 90 1RF Protocol: Hold for SBP< HOLD for SBP < : 90 thiamine mononitrate (vit B1) [Vitamin B-1 (mononitrate)] 100 mg tablet 200 mg PO DAILY losartan 25 mg tablet 12.5 mg PO DAILY folic acid 1 mg tablet 1 mg PO DAILY spironolactone 25 mg tablet 25 mg PO DAILY potassium chloride 10 mEq tablet extended release 10 meq PO BID metoprolol succinate 50 mg tablet extended release 24 hr 50 mg PO BID Qty: 60 2RF Jardiance 10 mg tablet 10 mg PO DAILY Qty: 30 1RF Discharge Orders: Discharge Order (Routine); Ordered 11/06/22 Ordered By: Sameer Khan Care Plan Goals: AMA Health Concerns: AMA Plan of Treatment: AMA Assessment: AMA Discharge Date/Time: 11/06/22 13:21
--- NOTE | 2022-11-06 16:01 | MHC.CM.PN ---
Patient left AMA.
== END 2022-11-06 13:21 | disposition left against medical advice (07) | DRG 201 ==
LOC: HO.ED 05:43 → HO.EDOVER 12:07 → HO.IMC 15:48
PROVIDERS: Admitting Provider Student in an Organized Health Care Education/Training Program; Emergency Provider Emergency Medicine; PCP Internal Medicine; Visit Provider Hospitalist
DX: I48.91 Unspecified atrial fibrillation (principal); I42.6 Alcoholic cardiomyopathy; I50.22 Chronic systolic (congestive) heart failure; I11.0 Hypertensive heart disease with heart failure; N28.0 Ischemia and infarction of kidney; E11.9 Type 2 diabetes mellitus without complications; F10.20 Alcohol dependence, uncomplicated; Z91.148 Patient's other noncompliance with medication regimen for other reason; D18.03 Hemangioma of intra-abdominal structures; Y90.7 Blood alcohol level of 200-239 mg/100 ml; Z79.01 Long term (current) use of anticoagulants; Z79.899 Other long term (current) drug therapy
CPT/HCPCS: 36415; 71046; 74177; 80048; 80053; 80076; 80307; 81001; 83690; 83735; 84484; 85025; 85610; 85730; 93005; 99285; J1650; J1940; J2270; J2405; J2560; J3475

== ENCOUNTER 2022-12-13 13:12 | Inpatient (IN) | payer OTHER, SELFPAY ==
[2022-12-13] VITALS (7 sets, daily range): BP systolic 120–155; BP diastolic 60–103; PULSE 67–155; RESP 18–25; TEMP 36.6–37.2; O2SAT 95–98; BMI 31.9; BMI 32.6
--- NOTE | ~2022-12-13 | XR_ITS ---
EXAMINATION: XR CHEST CLINICAL INFORMATION: Shortness of breath. COMPARISON: 11/05/2022 chest radiographs. TECHNIQUE: Frontal view of the chest was obtained. FINDINGS: Low lung volumes and evaluation. There is mild prominence of the pulmonary vasculature and cardiac silhouette. The mediastinal structures are unremarkable. XR/XR chest 1V IMPRESSION: Mild prominence of the pulmonary vasculature cardiac silhouette may be projectional given the lung volumes, but mild congestion cannot be excluded.
--- NOTE | 2022-12-13 13:22 | ECG_ITS ---
Test Reason : SOB Blood Pressure : / mmHG Vent. Rate : 149 BPM Atrial Rate : 000 BPM P-R Int : 000 ms QRS Dur : 100 ms QT Int : 314 ms P-R-T Axes : 000 032 192 degrees QTc Int : 494 ms Poor data quality, interpretation may be adversely affected Atrial fibrillation with rapid ventricular response Anterior infarct , age undetermined Abnormal ECG When compared with ECG of 05-NOV-2022 02:36, No significant change was found Referred By: Rodriguez Carolina Electronically Signed By:Wally Arreola
--- NOTE | 2022-12-13 13:22 | ED.GENADULT ---
HPI - General Adult General Chief complaint: Dyspnea Stated complaint: SOB per EMS Time Seen by Provider: 12/13/22 13:22 Source: patient Mode of arrival: EMS Limitations: no limitations History of Present Illness HPI narrative: Patient is a 57 year old male with history significant for CHF, afib and aflutter with RVR, cardiomyopathy, alcohol dependence and withdrawl, alcoholic hepatitis and hypertension presenting with increasing shortness of breath and edema of bilateral lower extremities. He states that he has had shortness of breath for months , however it has worsened in the past couple of days. He states that he first noticed the edema in his extremities this morning. Repots heavy drinking last night 3/4 pints of vodka, reports he drinks sometims. He denies fever, chills, chest pain, abdominal pain, nausea, vomiting, headache, vision changes and dizziness at this time. On apixaban med complaint per patient Related Data Home Medications Medication Instructions Recorded Confirmed folic acid 1 mg tablet 1 mg PO DAILY 09/16/22 11/05/22 losartan 25 mg tablet 12.5 mg PO DAILY 09/16/22 11/05/22 potassium chloride 10 mEq 10 meq PO BID 09/16/22 11/05/22 tablet,extended release spironolactone 25 mg tablet 25 mg PO DAILY 09/16/22 11/05/22 thiamine mononitrate (vit B1) 100 200 mg PO DAILY 09/16/22 11/05/22 mg tablet (Vitamin B-1 (mononitrate)) Previous Rx's Medication Instructions Recorded amiodarone 200 mg tablet 200 mg PO DAILY 90 days #90 tabs 12/31/21 apixaban 5 mg tablet (Eliquis) 5 mg PO BID #180 tabs 12/31/21 furosemide 40 mg tablet 40 mg PO DAILY 90 days #90 tabs 12/31/21 metoprolol succinate 50 mg 50 mg PO BID #60 tabs 09/16/22 tablet,extended release 24 hr empagliflozin 10 mg tablet 10 mg PO DAILY #30 tabs 11/18/22 (Jardiance) Allergies Allergy/AdvReac Type Severity Reaction Status Date / Time No Known Allergies Allergy Verified 08/31/22 03:36 [No Known Allergies*] Review of Systems Review of Systems: Constitutional : No Weight loss, No Fever, No Chills, No Fatigue, No Malaise Cardiovascular : No Chest Pain, + SOB, + Dyspnea on Exertion, No Orthopnea, + Edema, No Palpitations Respiratory : No Cough, No Sputum, No Wheezing Gastrointestinal : No Nausea, No Vomiting, No Diarrhea, No Constipation, No abdominal Pain, No Hematochezia, No Melena Genitourinary : No Dysuria, No Urinary Frequency, No Hematuria, Musculoskeletal : No joint pain, No Myalgias, No Joint Swelling Skin : No Skin Lesions, No rash Neuro : + Weakness, No Numbness, No Dizziness, No Headache Psych : No Anxiety/Panic, No Depression All other systems reviewed and are negative Yes all other systems are reviewed and are negative [facility] Past Medical History Attestation statement: The following information was validated with the patient. Source: old records reviewed and nursing notes reviewed Medical History Alcohol dependence with withdrawal Alcoholic hepatitis Atrial fibrillation with rapid ventricular response HTN (hypertension) Surgical History No pertinent past surgical history Family History Family History Father CAD (coronary artery disease) Mother Atrial fibrillation Social History Social History Household Members: None Housing: Apartment Do you presently have visiting nurse or other home services: No Unable to assess alcohol history related to: Unable to respond Alcohol intake: current Alcohol intake frequency: a few times a week Alcohol type: hard liquor Patient Tobacco Use Status: Never used Tobacco Advance Directives: No Advance Directives Information Provided: Yes service: No Current occupational status: unemployed Physical Exam ED Vital Signs: Vital Signs - 24 hr 12/13/22 13:26 12/13/22 13:57 12/13/22 15:45 Temperature 98 F 97.9 F Pulse Rate 155 H 126 H 126 H Respiratory Rate 20 20 25 H Blood Pressure 150/98 H 146/103 H 135/99 H Pulse Oximetry 95 95 96 Oxygen Delivery Method Room Air Room Air Room Air BMI result Body Mass Index 31.9 Vital signs with rapid heart rate. Other vital signs stable. Appearance: Alert.? Oriented X3.? No acute distress.? Head: Normocephalic, atraumatic, no step-offs or deformities Eyes: Pupils equal, round and reactive to light.? CVS: Rapid heart rate and irregular rhythm.? Respiratory: No respiratory distress.? Breath sounds diminished bilaterally. Abdomen: Soft and nontender.? Skin: Skin warm and dry.? Normal skin color.? Normal skin turgor.? Extremities: + 2+ pitting edema of lower extremity calves b/l. + non-pitting edema of ankles b/l. No calf ttp. 5/5 strength to bilateral upper and lower extremities Neuro: Oriented X 3.? No motor deficit.? No sensory deficit. CN 2-12 intact Course Reevaluation(s) Reevaluation #1: CBC appears to be at patients baseline. Chemistry significant for Mg 1.4 will be given IV MAC, Ca 8.0, BUN 22, elevated transaminases likely secondary to ETOH consumption and dehydration, will hydrate. BNP 1469 likely due to acute CHF. Chest x-ray also showing mild prominence of the pulmonary vascular cardiac silhouette enlarged, concerns for pulmonary congestion. ETOH level 306. Time: 14:21 Reevaluation #2: Patient still in afib heart rate 130's. Will give another 40 furosemide and 2mg IV ativan. Will then reassess. Time: 15:24 Reevaluation #3: Sign out to Dr. Danielle Time: 16:14 Medications Administered Discontinued Medications Generic Name Dose Route Start Last Admin Trade Name Freq PRN Reason Stop Dose Admin Furosemide 40 mg 12/13/22 13:41 12/13/22 13:50 Furosemide 40 Mg/4 Ml Vial IVPUSH 12/13/22 13:42 40 mg ONCE ONE Administration Protocol Magnesium Sulfate 2 gm in 50 mls @ 25 mls/hr 12/13/22 14:06 12/13/22 15:08 Magnesium Sulfate/H2o IV 12/13/22 16:05 25 mls/hr ONCE ONE Administration Labetalol HCl 5 mg 12/13/22 13:33 12/13/22 13:52 Labetalol Hcl 100 Mg/20 Ml Vial IVPUSH 12/13/22 13:34 5 mg ONCE ONE Administration Lorazepam 1 mg 12/13/22 13:41 12/13/22 13:52 Lorazepam 2 Mg/Ml Vial IVPUSH 12/13/22 13:42 1 mg ONCE ONE Administration Medical Decision Making Medical Decision Making [facility] Narrative: 1355 Patient is a 57 year old male presenting with 2 days of worsening shortness of breath and 1 day edema in lower extremities bilaterally. Physical exam significant for rapid heart rate 140's-150's with irregular rhythm, 2+ pitting edema of lower extremity calves b/l, + non-pitting edema of ankles b/l. Breath sounds diminished bilaterally. Differential diagnosis includes likely rapid atrial fibrillation with RVR, acute CHF exacerbation. Less likely pulmonary embolism, patient is on apixaban at home. Unlikely ACS, aortic dissection as patient is not experiencing chest pain. Unlikely pneumonia. Will rule out electrolyte abnormalities, acute alcohol intoxication, polysubstance abuse Plan labs, imaging. I did discuss AFib with RVR with my attending who recommends giving Lasix and Ativan before giving Lopressor. I will give labetalol for blood pressure however. Differential Diagnosis Differential Diagnoses: The differential diagnosis associated with the presentation includes Differential diagnosis includes likely rapid atrial fibrillation with RVR, atrial fibrillation, acute CHF exaccernation. Less likely pulmonary embolism, patient is on apixaban at home however can reportedly be non-compliant. Unlikely ACS, aortic dissection, pneumonia.Will rule out electrolyte abnormalities, acute alcohol intoxication, polysubstance abuse Admission/Observation Consideration of admission/observation: Escalation of care including admission/observation considered Lab Data MDM Lab Attestation statement: I reviewed the patient's lab results. 12/13/22 13:43 12/13/22 13:43 Labs: Lab Results 12/13/22 12/13/22 12/13/22 Range/Units 13:43 13:43 13:43 WBC 6.8 (4.8-10.8) X10*3/uL RBC 4.00 L (4.60-5.80) X10*6/uL Hgb 14.2 (14.0-18.0) g/dl Hct 42.4 (42.0-52.0) % MCV 106.0 H (80.0-98.0) fL MCH 35.5 H (27.0-33.0) pg MCHC 33.5 (31.0-36.0) g/dl RDW 15.9 (11.0-16.0) % Plt Count 162 D (160-400) X10*3/uL MPV 10.1 (9.4-12.4) fL Immature Gran % (Auto) 0.3 (0.0-0.4) % Neut % (Auto) 67.9 (45-73) % Lymph % (Auto) 22.4 (20-40) % [place] % (Auto) 8.4 (2-11) % Eos % (Auto) 0.3 (0-4) % Baso % (Auto) 0.7 (0-2) % Lymph # (Auto) 1.5 (1.2-4.9) X10*3/uL [place] # (Auto) 0.6 (0.1-1.2) X10*3/uL Eos # (Auto) 0.0 (0.0-0.4) X10*3/uL Baso # (Auto) 0.1 (0.0-0.2) X10*3/uL Abs Immat Gran (auto) 0.02 (0.00-0.03) X10*3/uL Absolute Neuts (auto) 4.6 (2.0-8.3) x10*3/uL Absolute Nucleated RBC 0.000 (0.0-0.012) X10*3/uL Nucleated RBC % (auto) 0.0 (0.0-0.2) /100WBC Sodium 143 (135-145) mmol/L Potassium 3.7 (3.3-5.1) mmol/L Chloride 113 H (96-108) mmol/L Carbon Dioxide 16 L (22-29) mmol/L Anion Gap 18 (12-20) BUN 22 H (9-16) mg/dL Creatinine 1.15 (0.5-1.4) mg/dL Estim Creat Clear Calc 86.3 Estimated GFR > 60 Random Glucose 106 (60-115) mg/dL Calcium 8.0 L (8.4-10.2) mg/dL Magnesium 1.4 L* (1.6-2.6) mg/dL Total Bilirubin 0.8 (0.0-1.0) mg/dL AST 38 H (5-37) U/L ALT 30 (0-40) U/L Alkaline Phosphatase 143 H (39-117) U/L Troponin I High Sens 34.4 (<3.5-35.0) ng/L B-Natriuretic Peptide (<100) pg/mL Total Protein 6.1 L (6.5-8.0) g/dL Albumin 3.6 (3.5-5.0) g/dL Urine Opiates Screen (Not Detect) Urine Fentanyl Screen (Not Detect) Ur Barbiturates Screen (Not Detect) Ur Phencyclidine Scrn (Not Detect) Ur Amphetamines Screen (Not Detect) U Benzodiazepines Scrn (Not Detect) Urine Cocaine Screen (Not Detect) U Marijuana (THC) Screen (Not Detect) Ethyl Alcohol mg/dL 12/13/22 12/13/22 12/13/22 Range/Units 13:43 13:43 15:43 WBC (4.8-10.8) X10*3/uL RBC (4.60-5.80) X10*6/uL Hgb (14.0-18.0) g/dl Hct (42.0-52.0) % MCV (80.0-98.0) fL MCH (27.0-33.0) pg MCHC (31.0-36.0) g/dl RDW (11.0-16.0) % Plt Count (160-400) X10*3/uL MPV (9.4-12.4) fL Immature Gran % (Auto) (0.0-0.4) % Neut % (Auto) (45-73) % Lymph % (Auto) (20-40) % [place] % (Auto) (2-11) % Eos % (Auto) (0-4) % Baso % (Auto) (0-2) % Lymph # (Auto) (1.2-4.9) X10*3/uL [place] # (Auto) (0.1-1.2) X10*3/uL Eos # (Auto) (0.0-0.4) X10*3/uL Baso # (Auto) (0.0-0.2) X10*3/uL Abs Immat Gran (auto) (0.00-0.03) X10*3/uL Absolute Neuts (auto) (2.0-8.3) x10*3/uL Absolute Nucleated RBC (0.0-0.012) X10*3/uL Nucleated RBC % (auto) (0.0-0.2) /100WBC Sodium (135-145) mmol/L Potassium (3.3-5.1) mmol/L Chloride (96-108) mmol/L Carbon Dioxide (22-29) mmol/L Anion Gap (12-20) BUN (9-16) mg/dL Creatinine (0.5-1.4) mg/dL Estim Creat Clear Calc Estimated GFR Random Glucose (60-115) mg/dL Calcium (8.4-10.2) mg/dL Magnesium (1.6-2.6) mg/dL Total Bilirubin (0.0-1.0) mg/dL AST (5-37) U/L ALT (0-40) U/L Alkaline Phosphatase (39-117) U/L Troponin I High Sens (<3.5-35.0) ng/L B-Natriuretic Peptide 1469 H (<100) pg/mL Total Protein (6.5-8.0) g/dL Albumin (3.5-5.0) g/dL Urine Opiates Screen Not Detected (Not Detect) Urine Fentanyl Screen Not Detected (Not Detect) Ur Barbiturates Screen POSITIVE H (Not Detect) Ur Phencyclidine Scrn Not Detected (Not Detect) Ur Amphetamines Screen Not Detected (Not Detect) U Benzodiazepines Scrn Not Detected (Not Detect) Urine Cocaine Screen Not Detected (Not Detect) U Marijuana (THC) Screen Not Detected (Not Detect) Ethyl Alcohol 306 H* mg/dL Independent Interpretation I performed an independent interpretation of an: EKG (Ventricular rate of 149, UT in various, QT/QTC normal. QRS normal. EKG with AFib with rapid ventricular response.) and Plain X-Ray Radiology Impression Discussion of test interpretation with radiology: I have reviewed the radiologist's reading. External Record Review External record reviewed: Inpatient record, Office record, Outpatient record, Prior outpatient labs, Prior outpatient radiology, Primary care record and Outside ED record Core Measures AMI core measures followed: Yes Measure exclusions: not indicated Critical Care Time Critical Care Time Critical Care Time: No Discharge Plan Discharge Clinical Impression: Alcohol abuse, Atrial fibrillation with RVR, CHF (congestive heart failure), Hypomagnesemia, Hypocalcemia Patient Disposition: Still a Patient Prescriptions: No Action amiodarone 200 mg tablet 200 mg PO DAILY 90 Days Qty: 90 1RF Eliquis 5 mg tablet 5 mg PO BID Qty: 180 1RF furosemide 40 mg tablet 40 mg PO DAILY 90 Days Qty: 90 1RF Protocol: Hold for SBP< HOLD for SBP < : 90 Jardiance 10 mg tablet 10 mg PO DAILY Qty: 30 1RF thiamine mononitrate (vit B1) [Vitamin B-1 (mononitrate)] 100 mg tablet 200 mg PO DAILY losartan 25 mg tablet 12.5 mg PO DAILY folic acid 1 mg tablet 1 mg PO DAILY spironolactone 25 mg tablet 25 mg PO DAILY potassium chloride 10 mEq tablet extended release 10 meq PO BID metoprolol succinate 50 mg tablet extended release 24 hr 50 mg PO BID Qty: 60 2RF
[2022-12-13 13:47] LABS: MANUAL DIFF FLAG NO
[2022-12-13 13:48] LABS: Basophils Absolute Auto 0.1 X10*3/uL (0.0-0.2); Basophils Percent Auto 0.7 % (0-2); Eosinophils Percent Auto 0.3 % (0-4); Hematocrit 42.4 % (42.0-52.0); Hemoglobin 14.2 g/dl (14.0-18.0); Imm Gran Abs Auto 0.02 X10*3/uL (0.00-0.03); Imm Gran Pct Auto 0.3 % (0.0-0.4); Lymphocytes Absolute Auto 1.5 X10*3/uL (1.2-4.9); Lymphocytes Percent Auto 22.4 % (20-40); Mean Corpuscular HGB Conc 33.5 g/dl (31.0-36.0); Mean Corpuscular Hemoglobin 35.5 pg (27.0-33.0); Mean Platelet Volume 10.1 fL (9.4-12.4); Monocytes Absolute Auto 0.6 X10*3/uL (0.1-1.2); Monocytes Percent Auto 8.4 % (2-11); Neutrophils Absolute Auto 4.6 x10*3/uL (2.0-8.3); Neutrophils Percent Auto 67.9 % (45-73); Platelet Count 162 X10*3/uL (160-400); Red Cell Distribution Width 15.9 % (11.0-16.0); White Blood Count 6.8 X10*3/uL (4.8-10.8)
[2022-12-13] MEDS: Furosemide 40 MG/4 ML VIAL IVPUSH ×2 (13:50→18:19)
[2022-12-13] MEDS: Labetalol HCL 100 MG/20 ML VIAL IVPUSH (13:52)
[2022-12-13] MEDS: LORazepam 2 MG/ML VIAL 1 MG IVPUSH (13:52)
[2022-12-13 14:00] LABS: Ethanol 306 mg/dL
[2022-12-13 14:06] LABS: Alanine Aminotransferase 30 U/L (0-40); Albumin Level 3.6 g/dL (3.5-5.0); Alkaline Phosphatase 143 U/L (39-117); Anion Gap 18 (12-20); Aspartate Amino Transferase 38 U/L (5-37); Bilirubin Total 0.8 mg/dL (0.0-1.0); Blood Urea Nitrogen 22 mg/dL (9-16); Carbon Dioxide 16 mmol/L (22-29); Chloride 113 mmol/L (96-108); Creatinine Clr Calc Pharmacy 86.3; Estimated Glomerular Filt Rate > 60; Glucose Random 106 mg/dL (60-115); Magnesium 1.4 mg/dL (1.6-2.6); Potassium 3.7 mmol/L (3.3-5.1); Sodium 143 mmol/L (135-145); Total Protein 6.1 g/dL (6.5-8.0)
[2022-12-13 14:10] LABS: B Type Natriuretic Peptide 1469 pg/mL (<100); Troponin-I High Sensitivity 34.4 ng/L (<3.5-35.0)
[2022-12-13] MEDS: Magnesium Sulfate/H2O 2 GM/50 ML PIGGYBACK IV (15:08)
[2022-12-13 16:04] LABS: Amphetamine Screen Urine Not Detected (Not Detect); Barbiturates, Urine POSITIVE (Not Detect); Benzodiazepines Screen Urine Not Detected (Not Detect); Cannabinoid Screen Urine Not Detected (Not Detect); Cocaine Screen Urine Not Detected (Not Detect); Fentanyl, urine Not Detected (Not Detect); Opiate Screen Urine Not Detected (Not Detect); Phencyclidine Screen Urine Not Detected (Not Detect)
[2022-12-13] MEDS: Metoprolol Tartrate 5 MG/5 ML VIAL IVPUSH (16:36)
[2022-12-13] MEDS: Amiodarone HCL 200 MG TABLET 400 MG PO (16:36)
--- NOTE | 2022-12-13 16:48 | PC.NURSE ---
pt alert and oriented, medicated per the mar. increased shortness of breath, reports drinking last night and having a hx of afib. was found to be afib rvr on the monitor. iv was established, pt in bed awaiting admission orders at this time aware of plan. call tillman within reach.
[2022-12-13 17:32] LABS: Prothrombin Time 11.6 SEC (10.0-13.1)
[2022-12-13 17:35] LABS: Partial Thromboplastin Time 30.7 SEC (26.0-36.4)
--- NOTE | 2022-12-13 17:39 | PM.IMHP ---
History of Present Illness Date of Service: 12/13/22 Chief Complaint: sob, le edema 57M pmh etoh dependence with steatosis, cardiomyopathy (EF 10/15%), htn, paroxysmal afib, presented with sob and LE edema. patient was recently admitted about 1 minth ptp for chf and afib. at that time was advised to go to [facility] [place] [facility] for ablation and pacer. patient left AMA. he is now returning with worsening sob over past 2-3 days, wrosening bilateral extermity edema. in ED noted to be in rapid afib. Review of Systems Review of Systems: Yes all other systems are reviewed and are negative [facility] Medical History Alcohol dependence with withdrawal Alcoholic hepatitis Atrial fibrillation with rapid ventricular response Chronic HFrEF (heart failure with reduced ejection fraction) HTN (hypertension) Family History Father CAD (coronary artery disease) Mother Atrial fibrillation Surgical History No pertinent past surgical history Social History Household Members: None Housing: Apartment Do you presently have visiting nurse or other home services: No Unable to assess alcohol history related to: Unable to respond Alcohol intake: current Alcohol intake frequency: a few times a week Alcohol type: hard liquor Patient Tobacco Use Status: Never used Tobacco Advance Directives: No Advance Directives Information Provided: Yes service: No Current occupational status: unemployed Meds Allergies Allergy/AdvReac Type Severity Reaction Status Date / Time No Known Allergies Allergy Verified 08/31/22 03:36 [No Known Allergies*] Active Medications: Current Medications Amiodarone HCl (Amiodarone Hcl 200 Mg Tablet) 200 mg PO DAILY [facility] Apixaban (Apixaban 5 Mg Tablet) 5 mg PO BID [facility] Furosemide (Furosemide 40 Mg/4 Ml Vial) 40 mg IVPUSH BID@0900,1800 [facility]; Protocol Metoprolol Tartrate (Metoprolol Tartrate 25 Mg Tablet) 25 mg PO QID [place]; Protocol Pharmacy Consult (Consult Rx Perform Med Rec) 1 each MISCELLANE ONCE PRN PRN Reason: Consult order Home Medications Medication Instructions Recorded Confirmed Last Taken Type folic acid 1 mg tablet 1 mg PO DAILY 09/16/22 11/05/22 10/06/22 History losartan 25 mg tablet 12.5 mg PO DAILY 09/16/22 11/05/22 10/06/22 History potassium chloride 10 mEq 10 meq PO BID 09/16/22 11/05/22 10/06/22 History tablet,extended release spironolactone 25 mg tablet 25 mg PO DAILY 09/16/22 11/05/22 10/06/22 History thiamine mononitrate (vit B1) 100 200 mg PO DAILY 09/16/22 11/05/22 10/06/22 History mg tablet (Vitamin B-1 (mononitrate)) Physical Exam Vital Signs and Narrative: Vital Signs: Last Vital Signs Temp 97.9 F 12/13/22 15:45 Pulse 126 H 12/13/22 15:45 Resp 25 H 12/13/22 15:45 BP 135/99 H 12/13/22 15:45 Pulse Ox 96 12/13/22 15:45 O2 Del Method Room Air 12/13/22 15:45 BMI result Body Mass Index 31.9 General: AO X 3, no acute distress Resp: Crackles bilateral, no accessory muscles used CVS: S1,S2,Rapid irregular, 2-3 + bilateral le edema GI: soft, non tender, non distended Neuro: motor grossly intact, alert Psych: appropriate affect, appropriate insight Results Labs 12/13/22 13:43 12/13/22 13:43 Labs: Laboratory Results - last 24 hr 12/13/22 12/13/22 12/13/22 13:43 13:43 13:43 MCV 106.0 H MCH 35.5 H MCHC 33.5 RDW 15.9 Plt Count 162 D MPV 10.1 Immature Gran % (Auto) 0.3 Neut % (Auto) 67.9 Lymph % (Auto) 22.4 [place] % (Auto) 8.4 Eos % (Auto) 0.3 Baso % (Auto) 0.7 Lymph # (Auto) 1.5 [place] # (Auto) 0.6 Eos # (Auto) 0.0 Baso # (Auto) 0.1 Abs Immat Gran (auto) 0.02 Absolute Neuts (auto) 4.6 Absolute Nucleated RBC 0.000 Nucleated RBC % (auto) 0.0 PT INR APTT Anion Gap 18 Estim Creat Clear Calc 86.3 Estimated GFR > 60 Random Glucose 106 Calcium 8.0 L Magnesium 1.4 L* Total Bilirubin 0.8 AST 38 H ALT 30 Alkaline Phosphatase 143 H Troponin I High Sens 34.4 B-Natriuretic Peptide Total Protein 6.1 L Albumin 3.6 Urine Opiates Screen Urine Fentanyl Screen Ur Barbiturates Screen Ur Phencyclidine Scrn Ur Amphetamines Screen U Benzodiazepines Scrn Urine Cocaine Screen U Marijuana (THC) Screen Ethyl Alcohol 12/13/22 12/13/22 12/13/22 13:43 13:43 15:43 MCV MCH MCHC RDW Plt Count MPV Immature Gran % (Auto) Neut % (Auto) Lymph % (Auto) [place] % (Auto) Eos % (Auto) Baso % (Auto) Lymph # (Auto) [place] # (Auto) Eos # (Auto) Baso # (Auto) Abs Immat Gran (auto) Absolute Neuts (auto) Absolute Nucleated RBC Nucleated RBC % (auto) PT INR APTT Anion Gap Estim Creat Clear Calc Estimated GFR Random Glucose Calcium Magnesium Total Bilirubin AST ALT Alkaline Phosphatase Troponin I High Sens B-Natriuretic Peptide 1469 H Total Protein Albumin Urine Opiates Screen Not Detected Urine Fentanyl Screen Not Detected Ur Barbiturates Screen POSITIVE H Ur Phencyclidine Scrn Not Detected Ur Amphetamines Screen Not Detected U Benzodiazepines Scrn Not Detected Urine Cocaine Screen Not Detected U Marijuana (THC) Screen Not Detected Ethyl Alcohol 306 H* 12/13/22 17:15 MCV MCH MCHC RDW Plt Count MPV Immature Gran % (Auto) Neut % (Auto) Lymph % (Auto) [place] % (Auto) Eos % (Auto) Baso % (Auto) Lymph # (Auto) [place] # (Auto) Eos # (Auto) Baso # (Auto) Abs Immat Gran (auto) Absolute Neuts (auto) Absolute Nucleated RBC Nucleated RBC % (auto) PT 11.6 INR 1.0 APTT 30.7 Anion Gap Estim Creat Clear Calc Estimated GFR Random Glucose Calcium Magnesium Total Bilirubin AST ALT Alkaline Phosphatase Troponin I High Sens B-Natriuretic Peptide Total Protein Albumin Urine Opiates Screen Urine Fentanyl Screen Ur Barbiturates Screen Ur Phencyclidine Scrn Ur Amphetamines Screen U Benzodiazepines Scrn Urine Cocaine Screen U Marijuana (THC) Screen Ethyl Alcohol Imaging Radiologist's Impressions: Impressions Chest X-Ray 12/13/22 13:28 IMPRESSION: Mild prominence of the pulmonary vasculature cardiac silhouette may be projectional given the lung volumes, but mild congestion cannot be excluded. Assessment and Plan (1) CHF (congestive heart failure): Status: Acute Plan 57M pmh etoh dependence with steatosis, cardiomyopathy (EF 10/15%), htn, paroxysmal afib, presented with sob and LE edema acute on chronic systolic chf in etoh cardiomyopathy iv lasix, metoprolol, cardio eval, etoh cessation paroxysmal afib iwth rvr amio, metoprolol eliquis cardio eval etoh dependence with hepatic steatosis monitor for withdrawal dvt prophylaxis - on eliquis full code patient with significant volume overload requiring iv diuresis, high risk for further decomendsation due to etoh dependence, cardiomyoppathy, afib with rvr, thererfore, expected to require atleast 2 midnights inpatient Time Spent With Patient Time: Total time managing care of this patient today ____ minutes. Quality Stroke Does the patient have a stroke diagnosis?: No VTE Prior VTE?: No VTE Risk Level:: Medical - moderate - high VTE Device Contraindication: Treatment Not Indicated VTE Drug Contraindication: N/A - Med Ordered
[2022-12-13 18:00] LABS: Appearance Urine Clear; Color Urine Yellow; Glucose Urine UA 100 mg/dL (Negative); Leukocyte Esterase Urine Negative (Negative); Nitrite Urine Negative (Negative); Urine Blood Negative (Negative); Urine Ketones Negative (Negative); Urine Protein Negative (Neg-Trace)
--- NOTE | 2022-12-13 18:03 | PHA.MEDREC ---
Pharmacy Consult ? Medication Reconciliation Pharmacy has completed the medication reconciliation. spoke with patient. Admits he is not very compliant with his medications as he would like to be (claim history validates). The claim history shows that the amiodarone was last filled in May for a 90 day supply. All of his medications are due for refill except for the furosemide but still mentions that he takes them every day. He mentions that the digoxin makes him urinate a lot so he has to take it at a different time of the day to avoid going at work (might be confusing this with Lasix). He reports that taking a lot of his medications at once can ruin his appetite and that he can go days without eating. His losartan is prescribed as 1/2 tablet everyday but he does not feel comfortable splitting his pills in half so he takes one full tab every other day. He says he takes 1 tablet of vitamin B1 and potassium daily despite both being prescribed for 2 tablets daily.
[2022-12-13] MEDS: Digoxin 0.5 MG/2 ML AMPUL 0.25 MG IVPUSH (18:19)
[2022-12-13] MEDS: Metoprolol Tartrate 25 MG TABLET PO (20:17)
[2022-12-13] MEDS: Apixaban 5 MG TABLET PO (20:17)
[2022-12-13] MEDS: 0.9 % Sodium Chloride Flush 3 ML SYRINGE IVFLUSH (20:17)
[2022-12-14 04:00] VITALS: BP 152/98; PULSE 99; RESP 18; TEMP 36.4; O2SAT 99
[2022-12-14 06:54] LABS: Hematocrit 39.8 % (42.0-52.0); Hemoglobin 13.1 g/dl (14.0-18.0); Mean Corpuscular HGB Conc 32.9 g/dl (31.0-36.0); Mean Corpuscular Hemoglobin 34.5 pg (27.0-33.0); Mean Corpuscular Volume 104.7 fL (80.0-98.0); Mean Platelet Volume 10.7 fL (9.4-12.4); Platelet Count 145 X10*3/uL (160-400); Red Cell Distribution Width 15.2 % (11.0-16.0); White Blood Count 5.9 X10*3/uL (4.8-10.8)
[2022-12-14 07:04] LABS: INTERNATIONAL NORM RATIO 1.3 (0.9-1.1); Prothrombin Time 14.6 SEC (10.0-13.1)
[2022-12-14 07:09] LABS: Alanine Aminotransferase 27 U/L (0-40); Albumin Level 3.6 g/dL (3.5-5.0); Alkaline Phosphatase 135 U/L (39-117); Anion Gap 16 (12-20); Aspartate Amino Transferase 36 U/L (5-37); Bilirubin Direct 0.5 mg/dL (0.0-0.5); Bilirubin Total 1.6 mg/dL (0.0-1.0); Blood Urea Nitrogen 21 mg/dL (9-16); Calcium 8.5 mg/dL (8.4-10.2); Carbon Dioxide 25 mmol/L (22-29); Chloride 103 mmol/L (96-108); Creatinine Clr Calc Pharmacy 82.2; Estimated Glomerular Filt Rate > 60; Glucose Fasting 118 mg/dL (60-99); Potassium 3.7 mmol/L (3.3-5.1); Sodium 140 mmol/L (135-145); Total Protein 6.1 g/dL (6.5-8.0)
[2022-12-14 07:16] LABS: Magnesium 1.4 mg/dL (1.6-2.6)
[2022-12-14 07:49] VITALS: BP 126/87; PULSE 102; RESP 22; TEMP 36.4; O2SAT 93
--- NOTE | 2022-12-14 08:27 | P.PNIM_ITS ---
Subjective Subjective Date of Service: 12/14/22 Interval History: imprvoed swelling Physical Exam Vital Signs: Vital Signs: Last Vital Signs Temp 97.6 F 12/14/22 07:49 Pulse 102 H 12/14/22 07:49 Resp 22 H 12/14/22 07:49 BP 126/87 12/14/22 07:49 Pulse Ox 93 12/14/22 07:49 O2 Del Method Room Air 12/14/22 07:49 BMI result Body Mass Index 32.6 alert oriented time 3, tremulous, restless, improved edema, irregular rapid rhtyhem, Objective Data Active Medications Amiodarone HCl (Amiodarone Hcl 200 Mg Tablet) 200 mg PO DAILY [facility] Apixaban (Apixaban 5 Mg Tablet) 5 mg PO BID [facility] Last Admin: 12/13/22 20:17 Dose: 5 mg Documented By: JANEL Digoxin (Digoxin 0.125 Mg Tablet) 0.125 mg PO DAILY [facility] Empagliflozin (Empagliflozin 10 Mg Tablet) 10 mg PO DAILY [facility] Folic Acid (Folic Acid 1 Mg Tablet) 1 mg PO DAILY [facility] Furosemide (Furosemide 40 Mg/4 Ml Vial) 40 mg IVPUSH BID@0900,1800 [facility]; Protocol Last Admin: 12/13/22 18:19 Dose: 40 mg Documented By: FEROZ Magnesium Sulfate (Magnesium Sulfate/H2o) 2 gm in 50 mls @ 25 mls/hr IV ONCE ONE Stop: 12/14/22 09:27 Magnesium Oxide (Magnesium Oxide 400 Mg Tablet) 400 mg PO BIDPC [facility] Metoprolol Tartrate (Metoprolol Tartrate 25 Mg Tablet) 25 mg PO QID [facility]; Protocol Last Admin: 12/13/22 20:17 Dose: 25 mg Documented By: JANEL Pharmacy Consult (Consult Rx Perform Med Rec) 1 each MISCELLANE ONCE PRN PRN Reason: Consult order Pharmacy Consult (Consult Rx Etoh Phenob Im/Po) 1 each MISCELLANE ONCE PRN; Protocol PRN Reason: Consult order Phenobarbital (Phenobarbital 15 Mg Tablet) 45 mg PO BID [facility]; Protocol Stop: 12/16/22 09:01 Phenobarbital (Phenobarbital 30 Mg Tablet) 30 mg PO BID [facility]; Protocol Stop: 12/18/22 09:01 Phenobarbital (Phenobarbital 30 Mg Tablet) 30 mg PO Q24H [facility]; Protocol Stop: 12/19/22 21:01 Phenobarbital Sodium (Phenobarbital Sodium 130 Mg/Ml Vial Im Q3hx2) 175 mg IM Q3H [facility]; Protocol Stop: 12/14/22 14:01 Sodium Chloride (0.9 % Sodium Chloride Flush 3 Ml Syringe) 3 ml IVFLUSH QSHIFT [facility] Last Admin: 12/13/22 20:17 Dose: 3 ml Documented By: JANEL Thiamine HCl (Thiamine Hcl 100 Mg Tablet) 100 mg PO DAILY [facility] Labs 12/14/22 06:11 12/14/22 06:11 Labs: Laboratory Results - last 24 hr 12/13/22 12/13/22 12/13/22 13:43 13:43 13:43 MCV 106.0 H MCH 35.5 H MCHC 33.5 RDW 15.9 Plt Count 162 D MPV 10.1 Immature Gran % (Auto) 0.3 Neut % (Auto) 67.9 Lymph % (Auto) 22.4 [place] % (Auto) 8.4 Eos % (Auto) 0.3 Baso % (Auto) 0.7 Lymph # (Auto) 1.5 [place] # (Auto) 0.6 Eos # (Auto) 0.0 Baso # (Auto) 0.1 Abs Immat Gran (auto) 0.02 Absolute Neuts (auto) 4.6 Absolute Nucleated RBC 0.000 Nucleated RBC % (auto) 0.0 PT INR APTT Anion Gap 18 Estim Creat Clear Calc 86.3 Estimated GFR > 60 Random Glucose 106 Fasting Glucose Calcium 8.0 L Magnesium 1.4 L* Total Bilirubin 0.8 Direct Bilirubin AST 38 H ALT 30 Alkaline Phosphatase 143 H Troponin I High Sens 34.4 B-Natriuretic Peptide Total Protein 6.1 L Albumin 3.6 Urine Color Urine Appearance Urine pH Ur Specific [place] Urine Protein Urine Glucose (UA) Urine Ketones Urine Blood Urine Nitrite Ur Leukocyte Esterase Urine Opiates Screen Urine Fentanyl Screen Ur Barbiturates Screen Ur Phencyclidine Scrn Ur Amphetamines Screen U Benzodiazepines Scrn Urine Cocaine Screen U Marijuana (THC) Screen Ethyl Alcohol 12/13/22 12/13/22 12/13/22 13:43 13:43 15:43 MCV MCH MCHC RDW Plt Count MPV Immature Gran % (Auto) Neut % (Auto) Lymph % (Auto) [place] % (Auto) Eos % (Auto) Baso % (Auto) Lymph # (Auto) [place] # (Auto) Eos # (Auto) Baso # (Auto) Abs Immat Gran (auto) Absolute Neuts (auto) Absolute Nucleated RBC Nucleated RBC % (auto) PT INR APTT Anion Gap Estim Creat Clear Calc Estimated GFR Random Glucose Fasting Glucose Calcium Magnesium Total Bilirubin Direct Bilirubin AST ALT Alkaline Phosphatase Troponin I High Sens B-Natriuretic Peptide 1469 H Total Protein Albumin Urine Color Urine Appearance Urine pH Ur Specific [place] Urine Protein Urine Glucose (UA) Urine Ketones Urine Blood Urine Nitrite Ur Leukocyte Esterase Urine Opiates Screen Not Detected Urine Fentanyl Screen Not Detected Ur Barbiturates Screen POSITIVE H Ur Phencyclidine Scrn Not Detected Ur Amphetamines Screen Not Detected U Benzodiazepines Scrn Not Detected Urine Cocaine Screen Not Detected U Marijuana (THC) Screen Not Detected Ethyl Alcohol 306 H* 12/13/22 12/13/22 12/14/22 17:15 17:54 06:11 MCV 104.7 H MCH 34.5 H MCHC 32.9 RDW 15.2 Plt Count 145 L MPV 10.7 Immature Gran % (Auto) Neut % (Auto) Lymph % (Auto) [place] % (Auto) Eos % (Auto) Baso % (Auto) Lymph # (Auto) [place] # (Auto) Eos # (Auto) Baso # (Auto) Abs Immat Gran (auto) Absolute Neuts (auto) Absolute Nucleated RBC 0.000 Nucleated RBC % (auto) 0.0 PT 11.6 INR 1.0 APTT 30.7 Anion Gap Estim Creat Clear Calc Estimated GFR Random Glucose Fasting Glucose Calcium Magnesium Total Bilirubin Direct Bilirubin AST ALT Alkaline Phosphatase Troponin I High Sens B-Natriuretic Peptide Total Protein Albumin Urine Color Yellow Urine Appearance Clear Urine pH 5.0 Ur Specific [place] 1.010 Urine Protein Negative Urine Glucose (UA) 100 H Urine Ketones Negative Urine Blood Negative Urine Nitrite Negative Ur Leukocyte Esterase Negative Urine Opiates Screen Urine Fentanyl Screen Ur Barbiturates Screen Ur Phencyclidine Scrn Ur Amphetamines Screen U Benzodiazepines Scrn Urine Cocaine Screen U Marijuana (THC) Screen Ethyl Alcohol 12/14/22 12/14/22 06:11 06:11 MCV MCH MCHC RDW Plt Count MPV Immature Gran % (Auto) Neut % (Auto) Lymph % (Auto) [place] % (Auto) Eos % (Auto) Baso % (Auto) Lymph # (Auto) [place] # (Auto) Eos # (Auto) Baso # (Auto) Abs Immat Gran (auto) Absolute Neuts (auto) Absolute Nucleated RBC Nucleated RBC % (auto) PT 14.6 H INR 1.3 H APTT Anion Gap 16 Estim Creat Clear Calc 82.2 Estimated GFR > 60 Random Glucose Fasting Glucose 118 H Calcium 8.5 D Magnesium 1.4 L* Total Bilirubin 1.6 H Direct Bilirubin 0.5 AST 36 ALT 27 Alkaline Phosphatase 135 H Troponin I High Sens B-Natriuretic Peptide Total Protein 6.1 L Albumin 3.6 Urine Color Urine Appearance Urine pH Ur Specific [place] Urine Protein Urine Glucose (UA) Urine Ketones Urine Blood Urine Nitrite Ur Leukocyte Esterase Urine Opiates Screen Urine Fentanyl Screen Ur Barbiturates Screen Ur Phencyclidine Scrn Ur Amphetamines Screen U Benzodiazepines Scrn Urine Cocaine Screen U Marijuana (THC) Screen Ethyl Alcohol Assessment and Plan (1) CHF (congestive heart failure): Status: Acute Plan 57M pmh etoh dependence with steatosis, cardiomyopathy (EF 10/15%), htn, paroxysmal afib, presented with sob and LE edema acute on chronic systolic chf in etoh cardiomyopathy iv lasix, metoprolol, cardio eval, etoh cessation paroxysmal afib iwth rvr amio, metoprolol eliquis cardio eval etoh dependence with hepatic steatosis and acute withdrawal ciwa, phenobarb dvt prophylaxis - on eliquis full code reason for continued hospitalization:in withdrawal, RVR, iv diuresis Time Spent With Patient Time: Total time managing care of this patient today ____ minutes. Quality Stroke Does the patient have a stroke diagnosis?: No VTE Prior VTE?: No VTE Risk Level:: Medical - moderate - high VTE Device Contraindication: Treatment Not Indicated VTE Drug Contraindication: N/A - Med Ordered
[2022-12-14] MEDS: Empagliflozin 10 MG TABLET PO (09:35)
[2022-12-14] MEDS: Magnesium Oxide 400 MG TABLET PO ×2 (09:35→17:05)
[2022-12-14] MEDS: Digoxin 0.125 MG TABLET PO (09:35)
[2022-12-14] MEDS: Folic Acid 1 MG TABLET PO (09:35)
[2022-12-14] MEDS: PHENobarbitaL sodium 130 MG/ML IM ONCE 233 MG IM (09:35)
[2022-12-14] MEDS: Metoprolol Tartrate 25 MG TABLET PO ×4 (09:35→20:18)
[2022-12-14] MEDS: Apixaban 5 MG TABLET PO ×2 (09:35→20:18)
[2022-12-14] MEDS: Amiodarone HCL 200 MG TABLET PO (09:35)
[2022-12-14] MEDS: Thiamine HCL 100 MG TABLET PO (09:35)
[2022-12-14] MEDS: 0.9 % Sodium Chloride Flush 3 ML SYRINGE IVFLUSH ×3 (09:36→23:59)
[2022-12-14] MEDS: Magnesium Sulfate/H2O 2 GM/50 ML PIGGYBACK IV (09:36)
[2022-12-14] MEDS: Furosemide 40 MG/4 ML VIAL IVPUSH ×2 (09:36→17:05)
--- NOTE | 2022-12-14 10:24 | MHC.CM.PN ---
Pt admitted with CHF, and a-fib. Pt lives at home alone, independent/self-care. Pt states his sister Lucy is HCP, copy requested. Pt will need a lyft for transport if D/C home. Anticipating a medical transfer to [facility] for ablation and pacemaker insertion. PCP: Dr. Sameer Leiva vax: x 3 moderna
--- NOTE | 2022-12-14 10:57 | PM.CNCAR ---
History of Present Illness History of Present Illness Date of Service: 12/14/22 Requesting physician: Soto Rodriguez Consult reason: atrial fibrillation and congestive heart failure Chief complaint: CHF, afib Narrative: I was consulted to see Abner in cardiology consultation today for atrial fibrillation rapid ventricular response and decompensated congestive heart failure. He said he came to the hospital with sudden swelling of his both lower extremity. He does understand why. Despite multiple hospitalization and multiple discussions in the past he seems to think that he does not have seizures heart problem. He was referred as an outpatient for AV christy ablation for his atrial fibrillation which is persistent with rapid ventricular response and severe LV systolic dysfunction. He says that he has not been able to follow-up because of his work issues. He denies alcohol use although his admission alcohol levels are 306. He says he takes all his medications. He denies any shortness of breath but visibly appears to be short of breath. His rate remains elevated with atrial fibrillation. Denies any palpitations. He denies any chest pain, lightheadedness, syncope. Does not recall that he was very seriously ill when he was transferred to [facility] in the last 6 months. He seems to have lack of comprehension regarding the seriousness of his heart condition. Review of Systems Constitutional: Constitutional: Reports no additional constitutional complaints Cardiovascular: Cardiovascular: Denies chest pain, Reports leg edema, Denies lightheadedness, Denies Loss of Consciousness, Denies palpitations, Denies dyspnea and Denies orthopnea Respiratory: Respiratory: Denies dyspnea Gastrointestinal: Gastrointestinal: Reports no additional gastrointestinal complaints Genitourinary: Genitourinary: Reports no additional male genitourinary complaints Musculoskeletal: Musculoskeletal: Reports no additional musculoskeletal complaints Integumentary/Breasts: Skin/Breast: Reports system reviewed and no additional complaints, except as docu Neurologic: Reports system reviewed and no additional complaints, except as documented Psychiatric: Psychiatric: Reports no additional psychiatric complaints Endocrine: Endocrine: Denies palpitations PMFSH Past Medical History Medical History Alcohol dependence with withdrawal Alcoholic hepatitis Atrial fibrillation with rapid ventricular response Chronic HFrEF (heart failure with reduced ejection fraction) HTN (hypertension) Family History Family History Father CAD (coronary artery disease) Mother Atrial fibrillation Surgical History Surgical History No pertinent past surgical history Social History Social History Household Members: None Housing: Apartment Do you presently have visiting nurse or other home services: No Unable to assess alcohol history related to: Unable to respond Alcohol intake: current Alcohol intake frequency: a few times a week Alcohol type: hard liquor Patient Tobacco Use Status: Never used Tobacco service: No Current occupational status: unemployed Meds Allergies Allergy/AdvReac Type Severity Reaction Status Date / Time No Known Allergies Allergy Verified 08/31/22 03:36 [No Known Allergies*] Active Medications: Current Medications Amiodarone HCl (Amiodarone Hcl 200 Mg Tablet) 200 mg PO DAILY [facility] Last Admin: 12/14/22 09:35 Dose: 200 mg Apixaban (Apixaban 5 Mg Tablet) 5 mg PO BID [facility] Last Admin: 12/14/22 09:35 Dose: 5 mg Digoxin (Digoxin 0.125 Mg Tablet) 0.125 mg PO DAILY [facility] Last Admin: 12/14/22 09:35 Dose: 0.125 mg Empagliflozin (Empagliflozin 10 Mg Tablet) 10 mg PO DAILY [facility] Last Admin: 12/14/22 09:35 Dose: 10 mg Folic Acid (Folic Acid 1 Mg Tablet) 1 mg PO DAILY [facility] Last Admin: 12/14/22 09:35 Dose: 1 mg Furosemide (Furosemide 40 Mg/4 Ml Vial) 40 mg IVPUSH BID@0900,1800 [facility]; Protocol Last Admin: 12/14/22 09:36 Dose: 40 mg Magnesium Oxide (Magnesium Oxide 400 Mg Tablet) 400 mg PO BIDPC [facility] Last Admin: 12/14/22 09:35 Dose: 400 mg Metoprolol Tartrate (Metoprolol Tartrate 25 Mg Tablet) 25 mg PO QID [facility]; Protocol Last Admin: 12/14/22 09:35 Dose: 25 mg Pharmacy Consult (Consult Rx Perform Med Rec) 1 each MISCELLANE ONCE PRN PRN Reason: Consult order Pharmacy Consult (Consult Rx Etoh Phenob Im/Po) 1 each MISCELLANE ONCE PRN; Protocol PRN Reason: Consult order Phenobarbital (Phenobarbital 15 Mg Tablet) 45 mg PO BID [facility]; Protocol Stop: 12/16/22 09:01 Phenobarbital (Phenobarbital 30 Mg Tablet) 30 mg PO BID [facility]; Protocol Stop: 12/18/22 09:01 Phenobarbital (Phenobarbital 30 Mg Tablet) 30 mg PO Q24H [facility]; Protocol Stop: 12/19/22 21:01 Phenobarbital Sodium (Phenobarbital Sodium 130 Mg/Ml Vial Im Q3hx2) 175 mg IM Q3H [facility]; Protocol Stop: 12/14/22 14:01 Sodium Chloride (0.9 % Sodium Chloride Flush 3 Ml Syringe) 3 ml IVFLUSH QSHIFT [facility] Last Admin: 12/14/22 09:36 Dose: 3 ml Thiamine HCl (Thiamine Hcl 100 Mg Tablet) 100 mg PO DAILY [facility] Last Admin: 12/14/22 09:35 Dose: 100 mg Home Medications Medication Instructions Recorded Confirmed Last Taken Type folic acid 1 mg tablet 1 mg PO DAILY 09/16/22 12/13/22 10/06/22 History losartan 25 mg tablet 25 mg PO Q OTHER DAY 09/16/22 12/13/22 10/06/22 History potassium chloride 10 mEq 10 meq PO DAILY 09/16/22 12/13/22 10/06/22 History tablet,extended release spironolactone 25 mg tablet 25 mg PO DAILY 09/16/22 12/13/22 10/06/22 History thiamine mononitrate (vit B1) 100 100 mg PO DAILY 09/16/22 12/13/22 10/06/22 History mg tablet (Vitamin B-1 (mononitrate)) digoxin 125 mcg (0.125 mg) tablet 125 mcg PO DAILY 12/13/22 12/13/22 Unknown History metoprolol succinate 50 mg 50 mg PO DAILY 12/13/22 12/13/22 Unknown History tablet,extended release 24 hr Physical Exam Vital Signs: Vital Signs: Last Vital Signs Temp 97.6 F 12/14/22 07:49 Pulse 102 H 12/14/22 07:49 Resp 22 H 12/14/22 07:49 BP 126/87 12/14/22 07:49 Pulse Ox 93 12/14/22 07:49 O2 Del Method Room Air 12/14/22 07:49 BMI result Body Mass Index 32.6 Const: General: cooperative, alert, awake and in distress mild and respiratory Nutritional Appearance: overweight Orientation/consciousness: patient oriented x3 HEENT: Head: Yes normocephalic and Yes atraumatic Neck: Neck: Yes trachea midline, Yes supple and Yes JVD Resp: Effort & Inspection: normal respiratory effort Auscultation: rales bilateral at the base Cardio: Jugular venous distension: JVD Palpation: abnormal PMI displaced PMI Rate: tachycardic Rhythm: abnormal rhythm irregularly irregular Heart sounds: S1 normal heart sound present, S2 normal heart sound present, no click, no gallops and no murmurs GI: Auscultation: normal bowel sounds Skin: General skin exam: no rashes or lesions noted Neuro: General: patient oriented x3 and no focal motor deficits Extrem: General: No clubbing, No cyanosis and Yes edema Objective Labs and Meds 12/14/22 06:11 12/14/22 06:11 Lab results: Laboratory Results - last 24 hr 12/13/22 12/13/22 12/13/22 13:43 13:43 13:43 WBC 6.8 RBC 4.00 L Hgb 14.2 Hct 42.4 MCV 106.0 H MCH 35.5 H MCHC 33.5 RDW 15.9 Plt Count 162 D MPV 10.1 Immature Gran % (Auto) 0.3 Neut % (Auto) 67.9 Lymph % (Auto) 22.4 [place] % (Auto) 8.4 Eos % (Auto) 0.3 Baso % (Auto) 0.7 Lymph # (Auto) 1.5 [place] # (Auto) 0.6 Eos # (Auto) 0.0 Baso # (Auto) 0.1 Abs Immat Gran (auto) 0.02 Absolute Neuts (auto) 4.6 Absolute Nucleated RBC 0.000 Nucleated RBC % (auto) 0.0 PT INR APTT Sodium 143 Potassium 3.7 Chloride 113 H Carbon Dioxide 16 L Anion Gap 18 BUN 22 H Creatinine 1.15 Estim Creat Clear Calc 86.3 Estimated GFR > 60 Random Glucose 106 Fasting Glucose Calcium 8.0 L Magnesium 1.4 L* Total Bilirubin 0.8 Direct Bilirubin AST 38 H ALT 30 Alkaline Phosphatase 143 H Troponin I High Sens 34.4 B-Natriuretic Peptide Total Protein 6.1 L Albumin 3.6 Urine Color Urine Appearance Urine pH Ur Specific [place] Urine Protein Urine Glucose (UA) Urine Ketones Urine Blood Urine Nitrite Ur Leukocyte Esterase Urine Opiates Screen Urine Fentanyl Screen Ur Barbiturates Screen Ur Phencyclidine Scrn Ur Amphetamines Screen U Benzodiazepines Scrn Urine Cocaine Screen U Marijuana (THC) Screen Ethyl Alcohol 12/13/22 12/13/22 12/13/22 13:43 13:43 15:43 WBC RBC Hgb Hct MCV MCH MCHC RDW Plt Count MPV Immature Gran % (Auto) Neut % (Auto) Lymph % (Auto) [place] % (Auto) Eos % (Auto) Baso % (Auto) Lymph # (Auto) [place] # (Auto) Eos # (Auto) Baso # (Auto) Abs Immat Gran (auto) Absolute Neuts (auto) Absolute Nucleated RBC Nucleated RBC % (auto) PT INR APTT Sodium Potassium Chloride Carbon Dioxide Anion Gap BUN Creatinine Estim Creat Clear Calc Estimated GFR Random Glucose Fasting Glucose Calcium Magnesium Total Bilirubin Direct Bilirubin AST ALT Alkaline Phosphatase Troponin I High Sens B-Natriuretic Peptide 1469 H Total Protein Albumin Urine Color Urine Appearance Urine pH Ur Specific [place] Urine Protein Urine Glucose (UA) Urine Ketones Urine Blood Urine Nitrite Ur Leukocyte Esterase Urine Opiates Screen Not Detected Urine Fentanyl Screen Not Detected Ur Barbiturates Screen POSITIVE H Ur Phencyclidine Scrn Not Detected Ur Amphetamines Screen Not Detected U Benzodiazepines Scrn Not Detected Urine Cocaine Screen Not Detected U Marijuana (THC) Screen Not Detected Ethyl Alcohol 306 H* 12/13/22 12/13/22 12/14/22 17:15 17:54 06:11 WBC 5.9 RBC 3.80 L Hgb 13.1 L Hct 39.8 L MCV 104.7 H MCH 34.5 H MCHC 32.9 RDW 15.2 Plt Count 145 L MPV 10.7 Immature Gran % (Auto) Neut % (Auto) Lymph % (Auto) [place] % (Auto) Eos % (Auto) Baso % (Auto) Lymph # (Auto) [place] # (Auto) Eos # (Auto) Baso # (Auto) Abs Immat Gran (auto) Absolute Neuts (auto) Absolute Nucleated RBC 0.000 Nucleated RBC % (auto) 0.0 PT 11.6 INR 1.0 APTT 30.7 Sodium Potassium Chloride Carbon Dioxide Anion Gap BUN Creatinine Estim Creat Clear Calc Estimated GFR Random Glucose Fasting Glucose Calcium Magnesium Total Bilirubin Direct Bilirubin AST ALT Alkaline Phosphatase Troponin I High Sens B-Natriuretic Peptide Total Protein Albumin Urine Color Yellow Urine Appearance Clear Urine pH 5.0 Ur Specific [place] 1.010 Urine Protein Negative Urine Glucose (UA) 100 H Urine Ketones Negative Urine Blood Negative Urine Nitrite Negative Ur Leukocyte Esterase Negative Urine Opiates Screen Urine Fentanyl Screen Ur Barbiturates Screen Ur Phencyclidine Scrn Ur Amphetamines Screen U Benzodiazepines Scrn Urine Cocaine Screen U Marijuana (THC) Screen Ethyl Alcohol 12/14/22 12/14/22 06:11 06:11 WBC RBC Hgb Hct MCV MCH MCHC RDW Plt Count MPV Immature Gran % (Auto) Neut % (Auto) Lymph % (Auto) [place] % (Auto) Eos % (Auto) Baso % (Auto) Lymph # (Auto) [place] # (Auto) Eos # (Auto) Baso # (Auto) Abs Immat Gran (auto) Absolute Neuts (auto) Absolute Nucleated RBC Nucleated RBC % (auto) PT 14.6 H INR 1.3 H APTT Sodium 140 Potassium 3.7 Chloride 103 Carbon Dioxide 25 Anion Gap 16 BUN 21 H Creatinine 1.22 Estim Creat Clear Calc 82.2 Estimated GFR > 60 Random Glucose Fasting Glucose 118 H Calcium 8.5 D Magnesium 1.4 L* Total Bilirubin 1.6 H Direct Bilirubin 0.5 AST 36 ALT 27 Alkaline Phosphatase 135 H Troponin I High Sens B-Natriuretic Peptide Total Protein 6.1 L Albumin 3.6 Urine Color Urine Appearance Urine pH Ur Specific [place] Urine Protein Urine Glucose (UA) Urine Ketones Urine Blood Urine Nitrite Ur Leukocyte Esterase Urine Opiates Screen Urine Fentanyl Screen Ur Barbiturates Screen Ur Phencyclidine Scrn Ur Amphetamines Screen U Benzodiazepines Scrn Urine Cocaine Screen U Marijuana (THC) Screen Ethyl Alcohol EKG shows atrial fibrillation rapid ventricular response Imaging Radiologist's impression: Impressions Chest X-Ray 12/13/22 13:28 IMPRESSION: Mild prominence of the pulmonary vasculature cardiac silhouette may be projectional given the lung volumes, but mild congestion cannot be excluded. Assessment and Plan (1) Heart failure, systolic, with acute decompensation: Status: Acute Heart failure with marked systolic dysfunction, suspected to be alcohol related or tachycardia mediated cardiomyopathy. Have not been able to control his rate adequately to distinguish. However he has had progressively worsening heart failure syndrome and is recurrent hospitalization. Despite multiple office visits and procedures in the past and multiple interactions he seems to not understand the gravity of his medical condition. Have discussed that he requires more aggressive treatment. He requires better rate control with AV christy ablation, see below and are Bi V ICD following diet. He has not tolerated neurohormonal modulation the past. Currently getting metoprolol q.i.d., heart rate could be elevated due to alcohol withdrawal as well as anxiety. Would add valsartan 20 mg b.i.d. to his regimen. Continue Jardiance. Continue spironolactone. Continue IV diuresis. Strict intake and output chart needs to be pursued. Once his clinical symptoms improves and his alcohol withdrawals in the control will transfer him to [facility] for consideration of AV christy ablation and Bi V ICD placement. Patient is already wanting to be discharged home, is not ready for discharge. Continue to aggressively replace electrolytes including magnesium to be above 2 and potassium above 4. (2) Atrial fibrillation with RVR: Status: Acute Atrial fibrillation which has been difficult control. Has failed rhythm control approach despite multiple cardioversions. He is currently on amiodarone for rate control along with digoxin and metoprolol. Continue treat his alcohol withdrawal. His rate control as been suboptimal in the past and most likely contributing to his heart failure syndrome and cardiomyopathic process. We discussed about AV christy ablation as a last resort option for him followed by Bi V ICD placement. He has not been able to keep his appointments and or says that he has not heard from them. High once his heart failure is improved and is alcohol withdrawal under control will transfer to [facility] for consideration for inpatient AV christy ablation Bi V ICD placement. Continue digoxin, amiodarone, metoprolol. Continue full oral anticoagulation with Eliquis. Will continue to follow with you. Greater than 45 minutes was spent in managing his complex care Time Spent With Patient Time: Total time managing care of this patient today ____ minutes. Procedures Date of Service Date of Service: 12/14/22
[2022-12-14 11:49] VITALS: BP 116/83; PULSE 106; RESP 20; TEMP 36.8; O2SAT 97
[2022-12-14] MEDS: PHENobarbitaL sodium 130 MG/ML VIAL IM Q3Hx2 175 MG IM ×2 (12:46→15:38)
[2022-12-14 15:19] VITALS: BP 134/78; PULSE 89; RESP 18; TEMP 37.1; O2SAT 98
[2022-12-14 19:32] VITALS: BP 132/92; PULSE 65; RESP 20; TEMP 36.2; O2SAT 92
[2022-12-14] MEDS: PHENobarbitaL 15 MG TABLET 45 MG PO (20:18)
[2022-12-14 23:39] VITALS: BP 138/76; PULSE 72; RESP 18; TEMP 36.6; O2SAT 94
[2022-12-15] VITALS (7 sets, daily range): BP systolic 108–130; BP diastolic 64–86; PULSE 58–94; RESP 17–20; TEMP 36.3–36.9; O2SAT 93–97
[2022-12-15 05:46] LABS: PLT CLUMP 1; Red Cell Distribution Width 14.9 % (11.0-16.0)
[2022-12-15 05:48] LABS: Hematocrit 38.2 % (42.0-52.0); Hemoglobin 12.6 g/dl (14.0-18.0); Mean Corpuscular Hemoglobin 34.3 pg (27.0-33.0); Mean Corpuscular Volume 104.1 fL (80.0-98.0); Mean Platelet Volume 10.6 fL (9.4-12.4); Red Blood Count 3.67 X10*6/uL (4.60-5.80)
[2022-12-15 05:55] LABS: Platelet Count 125 X10*3/uL (160-400); White Blood Count 5.5 X10*3/uL (4.8-10.8)
[2022-12-15 06:25] LABS: Alanine Aminotransferase 23 U/L (0-40); Alkaline Phosphatase 116 U/L (39-117); Anion Gap 12 (12-20); Aspartate Amino Transferase 30 U/L (5-37); Bilirubin Direct 0.8 mg/dL (0.0-0.5); Bilirubin Total 2.3 mg/dL (0.0-1.0); Blood Urea Nitrogen 19 mg/dL (9-16); Calcium 8.2 mg/dL (8.4-10.2); Carbon Dioxide 33 mmol/L (22-29); Chloride 98 mmol/L (96-108); Creatinine Clr Calc Pharmacy 79.6; Estimated Glomerular Filt Rate 59; Glucose Fasting 100 mg/dL (60-99); Magnesium 1.4 mg/dL (1.6-2.6); Potassium 3.3 mmol/L (3.3-5.1); Sodium 140 mmol/L (135-145); Total Protein 5.2 g/dL (6.5-8.0)
[2022-12-15] MEDS: Magnesium Sulfate/H2O 2 GM/50 ML PIGGYBACK IV (06:52)
[2022-12-15] MEDS: Thiamine HCL 100 MG TABLET PO (08:44)
[2022-12-15] MEDS: PHENobarbitaL 15 MG TABLET 45 MG PO ×2 (08:44→21:33)
[2022-12-15] MEDS: Digoxin 0.125 MG TABLET PO (08:44)
[2022-12-15] MEDS: Apixaban 5 MG TABLET PO ×2 (08:44→21:33)
[2022-12-15] MEDS: Furosemide 40 MG/4 ML VIAL IVPUSH (08:44)
[2022-12-15] MEDS: Metoprolol Tartrate 25 MG TABLET PO ×4 (08:44→21:32)
[2022-12-15] MEDS: Amiodarone HCL 200 MG TABLET PO (08:45)
[2022-12-15] MEDS: Magnesium Oxide 400 MG TABLET 800 MG PO ×2 (08:45→17:19)
[2022-12-15] MEDS: Folic Acid 1 MG TABLET PO (08:45)
[2022-12-15] MEDS: Empagliflozin 10 MG TABLET PO (08:45)
[2022-12-15] MEDS: 0.9 % Sodium Chloride Flush 3 ML SYRINGE IVFLUSH ×3 (08:45→21:33)
--- NOTE | 2022-12-15 09:21 | P.PNIM_ITS ---
Subjective Subjective Date of Service: 12/15/22 Interval History: agitated, sob and edema improved Physical Exam Vital Signs: Vital Signs: Last Vital Signs Temp 98.4 F 12/15/22 07:27 Pulse 81 12/15/22 07:27 Resp 20 12/15/22 07:27 BP 130/82 12/15/22 07:27 Pulse Ox 95 12/15/22 07:27 O2 Del Method Room Air 12/15/22 07:27 BMI result Body Mass Index 32.6 Const: General: cooperative, alert, awake and in distress mild and respiratory Nutritional Appearance: overweight Orientation/consciousness: patient oriented x3 HEENT: Head: Yes normocephalic and Yes atraumatic Neck: Neck: Yes trachea midline, Yes supple and Yes JVD Resp: Effort & Inspection: normal respiratory effort Auscultation: rales bilateral at the base Cardio: Jugular venous distension: JVD Palpation: abnormal PMI displaced PMI Rate: tachycardic Rhythm: abnormal rhythm irregularly irregular Heart sounds: S1 normal heart sound present, S2 normal heart sound present, no click, no gallops and no murmurs GI: Auscultation: normal bowel sounds Skin: General skin exam: no rashes or lesions noted Neuro: General: patient oriented x3 and no focal motor deficits Extrem: General: No clubbing, No cyanosis and Yes edema Objective Data Active Medications Amiodarone HCl (Amiodarone Hcl 200 Mg Tablet) 200 mg PO DAILY COUNTS INCLUDE 234 BEDS AT THE [facility] Last Admin: 12/15/22 08:45 Dose: 200 mg Documented By: DARREL Apixaban (Apixaban 5 Mg Tablet) 5 mg PO BID COUNTS INCLUDE 234 BEDS AT THE [facility] Last Admin: 12/15/22 08:44 Dose: 5 mg Documented By: DARREL Digoxin (Digoxin 0.125 Mg Tablet) 0.125 mg PO DAILY COUNTS INCLUDE 234 BEDS AT THE [facility] Last Admin: 12/15/22 08:44 Dose: 0.125 mg Documented By: DARREL Empagliflozin (Empagliflozin 10 Mg Tablet) 10 mg PO DAILY COUNTS INCLUDE 234 BEDS AT THE [facility] Last Admin: 12/15/22 08:45 Dose: 10 mg Documented By: DARREL Folic Acid (Folic Acid 1 Mg Tablet) 1 mg PO DAILY COUNTS INCLUDE 234 BEDS AT THE [facility] Last Admin: 12/15/22 08:45 Dose: 1 mg Documented By: DARREL Furosemide (Furosemide 40 Mg/4 Ml Vial) 40 mg IVPUSH BID@0900,1800 COUNTS INCLUDE 234 BEDS AT THE [facility]; Protocol Last Admin: 12/15/22 08:44 Dose: 40 mg Documented By: DARREL Magnesium Oxide (Magnesium Oxide 400 Mg Tablet) 800 mg PO BIDPC COUNTS INCLUDE 234 BEDS AT THE [facility] Last Admin: 12/15/22 08:45 Dose: 800 mg Documented By: DARREL Metoprolol Tartrate (Metoprolol Tartrate 25 Mg Tablet) 25 mg PO QID COUNTS INCLUDE 234 BEDS AT THE [facility]; Protocol Last Admin: 12/15/22 08:44 Dose: 25 mg Documented By: DARREL Pharmacy Consult (Consult Rx Perform Med Rec) 1 each MISCELLANE ONCE PRN PRN Reason: Consult order Pharmacy Consult (Consult Rx Etoh Phenob Im/Po) 1 each MISCELLANE ONCE PRN; Protocol PRN Reason: Consult order Phenobarbital (Phenobarbital 15 Mg Tablet) 45 mg PO BID COUNTS INCLUDE 234 BEDS AT THE [facility]; Protocol Stop: 12/16/22 09:01 Last Admin: 12/15/22 08:44 Dose: 45 mg Documented By: DARREL Phenobarbital (Phenobarbital 30 Mg Tablet) 30 mg PO BID COUNTS INCLUDE 234 BEDS AT THE [facility]; Protocol Stop: 12/18/22 09:01 Phenobarbital (Phenobarbital 30 Mg Tablet) 30 mg PO Q24H COUNTS INCLUDE 234 BEDS AT THE [facility]; Protocol Stop: 12/19/22 21:01 Sodium Chloride (0.9 % Sodium Chloride Flush 3 Ml Syringe) [facility] Last Admin: 12/15/22 08:45 Dose: 3 ml Documented By: DARREL Thiamine HCl (Thiamine Hcl 100 Mg Tablet) 100 mg PO DAILY COUNTS INCLUDE 234 BEDS AT THE [facility] Last Admin: 12/15/22 08:44 Dose: 100 mg Documented By: DARREL Labs 12/15/22 05:28 12/15/22 05:28 Labs: Laboratory Results - last 24 hr 12/15/22 12/15/22 05:28 05:28 MCV 104.1 H MCH 34.3 H MCHC 33.0 RDW 14.9 Plt Count 125 L MPV 10.6 Absolute Nucleated RBC 0.000 Nucleated RBC % (auto) 0.0 Anion Gap 12 Estim Creat Clear Calc 79.6 Estimated GFR 59 Fasting Glucose 100 H Calcium 8.2 L Magnesium 1.4 L* Total Bilirubin 2.3 H Direct Bilirubin 0.8 H AST 30 ALT 23 Alkaline Phosphatase 116 Total Protein 5.2 L Albumin 3.0 L Assessment and Plan (1) CHF (congestive heart failure): Status: Acute Plan 57M pmh etoh dependence with steatosis, cardiomyopathy (EF 10/15%), htn, paroxysmal afib, presented with sob and LE edema acute on chronic systolic chf in etoh cardiomyopathy iv lasix, metoprolol, cardio following, etoh cessation starting valsartan 20mg bid paroxysmal afib with rvr amio, metoprolol 25 qid, dig eliquis cardio appreciated, eventual need for transfer [facility] for av ablation and biV ICD once withdrawal and chf improved hypomagenesemia replace and monitor etoh dependence with hepatic steatosis and acute withdrawal ciwa, phenobarb dvt prophylaxis - on eliquis full code reason for continued hospitalization:in withdrawal, iv diuresis Time Spent With Patient Time: Total time managing care of this patient today ____ minutes. Quality Stroke Does the patient have a stroke diagnosis?: No VTE Prior VTE?: No VTE Risk Level:: Medical - moderate - high VTE Device Contraindication: Treatment Not Indicated VTE Drug Contraindication: N/A - Med Ordered
--- NOTE | 2022-12-15 10:27 | P.PNCA_ITS ---
Subjective Subjective Date of Service: 12/15/22 Principal diagnosis: CHF decompensation atrial fibrillation. Interval history: Patient heart failure seems to have improved. Has diuresed about 3 days. Breathing better although he says he was breathing better yesterday. Still has some leg edema. Responding to therapy well. Heart rate is better controlled but still elevated above 100. Currently getting [id number] treatment for alcohol withdrawal. Review of Systems Constitutional: Reports no additional constitutional complaints Cardiovascular: Reports no additional cardiovascular complaints Gastrointestinal: Reports no additional gastrointestinal complaints Psychiatric: Reports no additional psychiatric complaints Physical Exam Vital Signs: Last Vital Signs Temp 98.4 F 12/15/22 07:27 Pulse 81 12/15/22 07:27 Resp 20 12/15/22 07:27 BP 130/82 12/15/22 07:27 Pulse Ox 95 12/15/22 07:27 O2 Del Method Room Air 12/15/22 07:27 BMI result Body Mass Index 32.6 Const General: cooperative, alert, awake and in distress mild and respiratory Nutritional Appearance: overweight Orientation/consciousness: patient oriented x3 Neck Neck: Yes trachea midline, Yes supple and Yes JVD Resp Effort & Inspection: normal respiratory effort Auscultation: clear to auscultation bilaterally Cardio Jugular venous distension: JVD Palpation: abnormal PMI displaced PMI Rate: tachycardic Rhythm: abnormal rhythm irregularly irregular Heart sounds: S1 normal heart sound present, S2 normal heart sound present, no click, no gallops and no murmurs GI Auscultation: normal bowel sounds Skin General skin exam: no rashes or lesions noted Neuro General: patient oriented x3 and no focal motor deficits Extrem General: No clubbing, No cyanosis and Yes edema Objective Labs and Meds 12/15/22 05:28 12/15/22 05:28 Lab results: Laboratory Results - last 24 hr 12/15/22 12/15/22 05:28 05:28 WBC 5.5 RBC 3.67 L Hgb 12.6 L Hct 38.2 L MCV 104.1 H MCH 34.3 H MCHC 33.0 RDW 14.9 Plt Count 125 L MPV 10.6 Absolute Nucleated RBC 0.000 Nucleated RBC % (auto) 0.0 Sodium 140 Potassium 3.3 Chloride 98 Carbon Dioxide 33 H Anion Gap 12 BUN 19 H Creatinine 1.26 Estim Creat Clear Calc 79.6 Estimated GFR 59 Fasting Glucose 100 H Calcium 8.2 L Magnesium 1.4 L* Total Bilirubin 2.3 H Direct Bilirubin 0.8 H AST 30 ALT 23 Alkaline Phosphatase 116 Total Protein 5.2 L Albumin 3.0 L Progress Note: A&P Assessment and plan (1) Heart failure, systolic, with acute decompensation: Status: Acute Assessment and Plan: Heart failure with reduced ejection fraction, clinically has improved. However still appears to be fluid overloaded. Continue IV diuresis. Continue replace electrolytes with magnesium above 2 and potassium above 4. Continue Jardiance, digoxin, metoprolol, valsartan. Please add Aldactone 12.5 mg to his regimen. Continue strict intake and output chart. Continue to monitor electrolytes and check BMP tomorrow. Once he is medically stable from alcohol withdrawal perspective will plan to transfer to [facility] for consideration for AV christy ablation and Bi V defibrillator placement. He still says that he is not withdrawing although he has required [id number] phenobarbital. (2) Atrial fibrillation with RVR: Status: Acute Assessment and Plan: Atrial fibrillation rapid ventricular response has failed rhythm control approach. Currently on triple therapy with metoprolol, digoxin as well as amiodarone. Needs AV christy ablation Bi V ICD placement. Will transfer him once his medical situation improves. Will continue to follow with you Time Spent With Patient Time: Total time managing care of this patient today ____ minutes. Progress Note: Quality Stroke Does the patient have a stroke diagnosis?: No Procedures Date of Service Date of Service: 12/15/22
[2022-12-15] MEDS: Valsartan 40 MG TABLET 20 MG PO (21:31)
[2022-12-16 04:00] VITALS: BP 104/73; PULSE 66; RESP 18; TEMP 37.1; O2SAT 94
[2022-12-16 06:45] LABS: Hematocrit 42.7 % (42.0-52.0); Hemoglobin 14.2 g/dl (14.0-18.0); Mean Corpuscular HGB Conc 33.3 g/dl (31.0-36.0); Mean Corpuscular Hemoglobin 34.6 pg (27.0-33.0); Mean Corpuscular Volume 104.1 fL (80.0-98.0); Platelet Count 139 X10*3/uL (160-400); Red Cell Distribution Width 14.6 % (11.0-16.0); White Blood Count 6.3 X10*3/uL (4.8-10.8)
[2022-12-16 06:52] LABS: INTERNATIONAL NORM RATIO 1.5 (0.9-1.1)
[2022-12-16 07:05] VITALS: BP 110/70; PULSE 79; RESP 20; TEMP 36.2; O2SAT 94
[2022-12-16 07:08] LABS: Alanine Aminotransferase 20 U/L (0-40); Alkaline Phosphatase 113 U/L (39-117); Anion Gap 15 (12-20); Aspartate Amino Transferase 47 U/L (5-37); Bilirubin Direct 0.5 mg/dL (0.0-0.5); Bilirubin Total 1.6 mg/dL (0.0-1.0); Blood Urea Nitrogen 17 mg/dL (9-16); Calcium 8.2 mg/dL (8.4-10.2); Carbon Dioxide 30 mmol/L (22-29); Chloride 98 mmol/L (96-108); Creatinine Clr Calc Pharmacy 99.3; Estimated Glomerular Filt Rate > 60; Glucose Fasting 98 mg/dL (60-99); Magnesium 1.8 mg/dL (1.6-2.6); Potassium 3.5 mmol/L (3.3-5.1); Sodium 139 mmol/L (135-145); Total Protein 5.7 g/dL (6.5-8.0)
[2022-12-16] MEDS: Thiamine HCL 100 MG TABLET PO (07:40)
[2022-12-16] MEDS: Folic Acid 1 MG TABLET PO (07:40)
[2022-12-16] MEDS: PHENobarbitaL 15 MG TABLET 45 MG PO (07:40)
[2022-12-16] MEDS: Furosemide 40 MG/4 ML VIAL IVPUSH (07:40)
[2022-12-16] MEDS: Digoxin 0.125 MG TABLET PO (07:40)
[2022-12-16] MEDS: Valsartan 40 MG TABLET 20 MG PO (07:41)
[2022-12-16] MEDS: Metoprolol Tartrate 25 MG TABLET PO (07:41)
[2022-12-16] MEDS: Amiodarone HCL 200 MG TABLET PO (07:41)
[2022-12-16] MEDS: Empagliflozin 10 MG TABLET PO (07:41)
[2022-12-16] MEDS: 0.9 % Sodium Chloride Flush 3 ML SYRINGE IVFLUSH (07:42)
[2022-12-16] MEDS: Magnesium Oxide 400 MG TABLET 800 MG PO (07:42)
[2022-12-16] MEDS: Apixaban 5 MG TABLET PO (07:42)
--- NOTE | 2022-12-16 09:21 | HO.PM.IMPN ---
Subjective Subjective Date of Service: 12/16/22 Interval History: frustrated about being in the hospital and might sign out ama Physical Exam Vital Signs: Vital Signs: Last Vital Signs Temp 97.2 F 12/16/22 07:05 Pulse 79 12/16/22 07:05 Resp 20 12/16/22 07:05 BP 110/70 12/16/22 07:05 Pulse Ox 94 12/16/22 07:05 O2 Del Method Room Air 12/16/22 07:05 BMI result Body Mass Index 32.6 Const: Other: General: AO X 3, no acute distress Resp: CTA bilateral CVS: S1,S2, iregular GI: +BS, NT, no distention Skin: No rash Neuro: motor grossly intact Psych: appropriate affect Objective Data Active Medications Amiodarone HCl (Amiodarone Hcl 200 Mg Tablet) 200 mg PO DAILY [facility] Last Admin: 12/16/22 07:41 Dose: 200 mg Documented By: EASTON Apixaban (Apixaban 5 Mg Tablet) 5 mg PO BID [facility] Last Admin: 12/16/22 07:42 Dose: 5 mg Documented By: EASTON Digoxin (Digoxin 0.125 Mg Tablet) 0.125 mg PO DAILY [facility] Last Admin: 12/16/22 07:40 Dose: 0.125 mg Documented By: EASTON Empagliflozin (Empagliflozin 10 Mg Tablet) 10 mg PO DAILY [facility] Last Admin: 12/16/22 07:41 Dose: 10 mg Documented By: EASTON Folic Acid (Folic Acid 1 Mg Tablet) 1 mg PO DAILY [facility] Last Admin: 12/16/22 07:40 Dose: 1 mg Documented By: EASTON Furosemide (Furosemide 40 Mg/4 Ml Vial) 40 mg IVPUSH BID@0900,1800 [facility]; Protocol Last Admin: 12/16/22 07:40 Dose: 40 mg Documented By: EASTON Magnesium Oxide (Magnesium Oxide 400 Mg Tablet) 800 mg PO BIDPC [facility] Last Admin: 12/16/22 07:42 Dose: 800 mg Documented By: EASTON Metoprolol Tartrate (Metoprolol Tartrate 25 Mg Tablet) 25 mg PO QID [facility]; Protocol Last Admin: 12/16/22 07:41 Dose: 25 mg Documented By: EASTON Pharmacy Consult (Consult Rx Perform Med Rec) 1 each MISCELLANE ONCE PRN PRN Reason: Consult order Pharmacy Consult (Consult Rx Etoh Phenob Im/Po) 1 each MISCELLANE ONCE PRN; Protocol PRN Reason: Consult order Phenobarbital (Phenobarbital 30 Mg Tablet) 30 mg PO BID [facility]; Protocol Stop: 12/18/22 09:01 Phenobarbital (Phenobarbital 30 Mg Tablet) 30 mg PO Q24H [facility]; Protocol Stop: 12/19/22 21:01 Sodium Chloride (0.9 % Sodium Chloride Flush 3 Ml Syringe) 3 ml IVFLUSH QSHIFT [facility] Last Admin: 12/16/22 07:42 Dose: 3 ml Documented By: EASTON Thiamine HCl (Thiamine Hcl 100 Mg Tablet) 100 mg PO DAILY [facility] Last Admin: 12/16/22 07:40 Dose: 100 mg Documented By: EASTON Valsartan (Valsartan 40 Mg Tablet) 20 mg PO BID [facility]; Protocol Last Admin: 12/16/22 07:41 Dose: 20 mg Documented By: EASTON Labs 12/16/22 06:04 12/16/22 06:04 Labs: Laboratory Results - last 24 hr 12/16/22 12/16/22 12/16/22 06:04 06:04 06:04 MCV 104.1 H MCH 34.6 H MCHC 33.3 RDW 14.6 Plt Count 139 L MPV 11.0 Absolute Nucleated RBC 0.000 Nucleated RBC % (auto) 0.0 PT 18.0 H INR 1.5 H Anion Gap 15 Estim Creat Clear Calc 99.3 Estimated GFR > 60 Fasting Glucose 98 Calcium 8.2 L Magnesium 1.8 Total Bilirubin 1.6 H Direct Bilirubin 0.5 AST 47 H ALT 20 Alkaline Phosphatase 113 Total Protein 5.7 L Albumin 3.0 L Assessment and Plan (1) CHF (congestive heart failure): Status: Acute Plan 57M pmh etoh dependence with steatosis, cardiomyopathy (EF 10/15%), htn, paroxysmal afib, presented with sob and LE edema acute on chronic systolic chf in etoh cardiomyopathy iv lasix, metoprolol, cardio following, etoh cessation starting valsartan 20mg bid paroxysmal afib with rvr amio, metoprolol 25 qid, dig eliquis cardio appreciated, eventual need for transfer [facility] for av ablation and biV ICD once withdrawal and chf improved hypomagenesemia replace and monitor, presently 1.8 etoh dependence with hepatic steatosis and acute withdrawal ciwa, phenobarb dvt prophylaxis - on eliquis full code reason for continued hospitalization:in withdrawal, iv diuresis for cardiomyopathy and will need to be transfered to [facility] Time Spent With Patient Time: Total time managing care of this patient today ____ minutes. Quality Stroke Does the patient have a stroke diagnosis?: No VTE Prior VTE?: No VTE Risk Level:: Medical - moderate - high VTE Device Contraindication: Treatment Not Indicated VTE Drug Contraindication: N/A - Med Ordered
--- NOTE | 2022-12-16 10:21 | PM.DS ---
DS: Providers Provider Date of Service: 12/16/22 Date of admission: 12/13/22 17:38 Primary care physician: Sameer Khan DO Consults: 12/13/22 17:37 Consult to Cardiology Routine Consulting Provider: [facility] Reason for consultation: etoh cardiomyopathy, chf, afib Has provider been notified: Yes DS: Diagnosis Discharge Diagnosis (1) CHF (congestive heart failure): Status: Acute DS: Summary Hospital Course Hospital Course: admission hpi Chief Complaint: sob, le edema 57M pmh etoh dependence with steatosis, cardiomyopathy (EF 10/15%), htn, paroxysmal afib, presented with sob and LE edema. patient was recently admitted about 1 minth ptp for chf and afib. at that time was advised to go to [facility] for ablation and pacer. patient left AMA. he is now returning with worsening sob over past 2-3 days, wrosening bilateral extermity edema. in ED noted to be in rapid afib. Hospital course: acute on chronic systolic chf in etoh cardiomyopathy-he was treated with IV Lasix and continued on metorpolol, valsartan and jardiance. Overal is improved with compensated heart failure, there is element of compliance issue and this has been stressed to him. paroxysmal afib with rvr--initially required IV med for control but has been succesfully transitioned back to oral meds of metoprolol , amiodarone, and digoxin. And to continue Eliquis for stroke prevention. Cardiology followed him and may arrange for Biv ICD and ablation at later time. Again compliance with meds stressed to controll heart rate hypomagenesemia, likely due to chronic alcohol use replace and monitor, presently 1.8 etoh dependence with hepatic steatosis and acute withdrawal--has been treated with alcohol withdrawal and is better, but still with some agiations, no confusion, no hallucination; He is lucid but at this point he no longer wants to stay in the hospital for any form of treatment and therefore singing out againt medical advise. Risks, including he posibility of discussed with him, he is alert oriented to self, place and time and aware of the circumstances of his hospitalization. Time Spent with Patient Time attestation: Total time managing care of this patient today ____ minutes. Discharge coordination time: Greater than 30 minutes Quality: Safe Use of Opioids Does Pt have an Active Cancer Diagnosis on the Problem List?: No Quality: Stroke Does the patient have a stroke diagnosis?: No Physical Exam Vital Signs: Vital Signs: Last Vital Signs Temp 97.2 F 12/16/22 07:05 Pulse 79 12/16/22 07:05 Resp 20 12/16/22 07:05 BP 110/70 12/16/22 07:05 Pulse Ox 94 12/16/22 07:05 O2 Del Method Room Air 12/16/22 07:05 BMI result Body Mass Index 32.6 DS: Data Data Completed and Pending Completed studies during hospitalization [Text1]: Procedures Detoxification Services for Substance Abuse Treatment (11/05/22) Insertion of Endotracheal Airway into Trachea, Via Natural or Artificial Opening (11/11/21) Respiratory Ventilation, 24-96 Consecutive Hours (11/11/21) Synagogue of Cardiac Rhythm, Single (11/11/21) Labs on day of discharge: Laboratory Results - last 24 hr 12/16/22 12/16/22 12/16/22 06:04 06:04 06:04 WBC 6.3 RBC 4.10 L Hgb 14.2 Hct 42.7 MCV 104.1 H MCH 34.6 H MCHC 33.3 RDW 14.6 Plt Count 139 L MPV 11.0 Absolute Nucleated RBC 0.000 Nucleated RBC % (auto) 0.0 PT 18.0 H INR 1.5 H Sodium 139 Potassium 3.5 Chloride 98 Carbon Dioxide 30 H Anion Gap 15 BUN 17 H Creatinine 1.01 Estim Creat Clear Calc 99.3 Estimated GFR > 60 Fasting Glucose 98 Calcium 8.2 L Magnesium 1.8 Total Bilirubin 1.6 H Direct Bilirubin 0.5 AST 47 H ALT 20 Alkaline Phosphatase 113 Total Protein 5.7 L Albumin 3.0 L Discharge Plan Discharge Anticipated Discharge Date/Time: 12/16/22 10:16 Patient Disposition: Left Against Medical Advice Discharge Diagnosis: Heart failure, Afib with RVR Referrals: Sameer Khan DO [Primary Care Provider] - 1 Week Discharge Medications: Continued amiodarone 200 mg tablet 200 mg PO DAILY 90 Days Qty: 90 1RF Eliquis 5 mg tablet 5 mg PO BID Qty: 180 1RF furosemide 40 mg tablet 40 mg PO DAILY 90 Days Qty: 90 1RF Protocol: Hold for SBP< HOLD for SBP < : 90 Jardiance 10 mg tablet 10 mg PO DAILY Qty: 30 1RF digoxin 125 mcg (0.125 mg) tablet 125 mcg PO DAILY metoprolol succinate 50 mg tablet extended release 24 hr 50 mg PO DAILY thiamine mononitrate (vit B1) [Vitamin B-1 (mononitrate)] 100 mg tablet 100 mg PO DAILY losartan 25 mg tablet 25 mg PO Q OTHER DAY folic acid 1 mg tablet 1 mg PO DAILY spironolactone 25 mg tablet 25 mg PO DAILY potassium chloride 10 mEq tablet extended release 10 meq PO DAILY Discharge Orders: Discharge Order (Routine); Ordered 12/16/22 Ordered By: Cesar Mosley Diet: Advance to usual diet Activity on Discharge: As tolerated Care Plan Goals: full recovery from heart failure and afib with rvr Health Concerns: atrial fibrilation heart failure alcohol use desorder Plan of Treatment: Take all your medication as recommended and follow up with your primary care doctor within a week, follow up with your heart doctor within 2 weeks Avoid alcohol. You understanding you are leaving the hospital against medical advise and take full responsibility for your health, including even the posibility of . We strongly advise that you follow up with your doctor and avold alcohol at all cost. Assessment: as above
[2022-12-16 10:57] VITALS: BP 100/70; PULSE 92; RESP 20; TEMP 36.4; O2SAT 92
--- NOTE | 2022-12-16 10:57 | MHC.CM.PN ---
Patient has left AMA.
--- NOTE | 2022-12-16 11:02 | P.PNCA_ITS ---
Subjective Subjective Date of Service: 12/16/22 Principal diagnosis: CHF decompensation atrial fibrillation. Interval history: patient says he feels better. His heart rate is better control on his usual medications. He has less jittery today. He said he is breathing well and wants to go home. However he still getting [id number] treatment for alcohol wit hdrawal. He has diuresed about 7 L since been admitted. His blood pressure is stable. Review of Systems Review of Systems Yes all other systems are reviewed and are negative Physical Exam Vital Signs: Last Vital Signs Temp 97.2 F 12/16/22 07:05 Pulse 79 12/16/22 07:05 Resp 20 12/16/22 07:05 BP 110/70 12/16/22 07:05 Pulse Ox 94 12/16/22 07:05 O2 Del Method Room Air 12/16/22 07:05 BMI result Body Mass Index 32.6 Const General: cooperative, alert, awake and in distress mild and respiratory Nutritional Appearance: overweight Orientation/consciousness: patient oriented x3 Neck Neck: Yes trachea midline, Yes supple and Yes no JVD Resp Effort & Inspection: normal respiratory effort Auscultation: clear to auscultation bilaterally Cardio Jugular venous distension: no JVD Palpation: abnormal PMI displaced PMI Rate: tachycardic Rhythm: abnormal rhythm irregularly irregular Heart sounds: S1 normal heart sound present, S2 normal heart sound present, no click, no gallops and no murmurs GI Auscultation: normal bowel sounds Skin General skin exam: no rashes or lesions noted Neuro General: patient oriented x3 and no focal motor deficits Extrem General: No clubbing, No cyanosis and Yes edema Objective Labs and Meds 12/16/22 06:04 12/16/22 06:04 Lab results: Laboratory Results - last 24 hr 12/16/22 12/16/22 12/16/22 06:04 06:04 06:04 WBC 6.3 RBC 4.10 L Hgb 14.2 Hct 42.7 MCV 104.1 H MCH 34.6 H MCHC 33.3 RDW 14.6 Plt Count 139 L MPV 11.0 Absolute Nucleated RBC 0.000 Nucleated RBC % (auto) 0.0 PT 18.0 H INR 1.5 H Sodium 139 Potassium 3.5 Chloride 98 Carbon Dioxide 30 H Anion Gap 15 BUN 17 H Creatinine 1.01 Estim Creat Clear Calc 99.3 Estimated GFR > 60 Fasting Glucose 98 Calcium 8.2 L Magnesium 1.8 Total Bilirubin 1.6 H Direct Bilirubin 0.5 AST 47 H ALT 20 Alkaline Phosphatase 113 Total Protein 5.7 L Albumin 3.0 L Progress Note: A&P Assessment and plan (1) Heart failure, systolic, with acute decompensation: Status: Acute Assessment and Plan: Heart failure with reduces ejection fraction with acute decompensation most likely related to noncompliance with medication continued alcohol use. His prognosis is poor given that he has noncompliance medical therapy and follow ups and recommendations. He thinks he is taking all his medication although there is proved that he is responding to medical therapy when he is on it. Discussed with him and confronted him and he says that he is very compliant with his medications. At this point time he does require an ICD placement for primary prevention which can be done as an outpatient. He is recommended to avoid alcohol use although this has been an issue and he denies using alcohol although he came in with alcohol level of 306. continue all neurohormonal modulation as prescribed. Importance of compliance was discussed. Overall risk of dying is high. (2) Atrial fibrillation with RVR: Status: Acute Assessment and Plan: Atrial fibrillation with now better rate control with just taking his usual medications. This suggests that he is noncompliant with his medications as outpatient. Unclear at this point time that he requires AV christy ablation. He has failed rhythm control approach probably due to noncompliance. Importance of compliance with medication was discussed. Continue all rate control medications for now. Continue full oral anticoagulation with apixaban. Avoidance of alcohol was discussed to reduce bleeding risk. Patient is going to sign out against medical advise. Will give him follow-up as outpatient Time Spent With Patient Time: Total time managing care of this patient today ____ minutes. Progress Note: Quality Stroke Does the patient have a stroke diagnosis?: No Procedures Date of Service Date of Service: 12/16/22
--- NOTE | 2022-12-16 11:07 | MHC.CM.PN ---
PT LEFT AMA.
== END 2022-12-16 11:41 | disposition left against medical advice (07) | DRG 194 ==
LOC: HO.ED 16:27 → HO.EDOVER 17:45 → HO.IMC 17:46
PROVIDERS: Physician Assistant; Admitting Provider Internal Medicine; Emergency Provider Internal Medicine; PCP Hospitalist; Visit Provider Internal Medicine
DX: I11.0 Hypertensive heart disease with heart failure (principal); E86.0 Dehydration; E83.51 Hypocalcemia; I42.6 Alcoholic cardiomyopathy; Z79.01 Long term (current) use of anticoagulants; I48.0 Paroxysmal atrial fibrillation; E83.42 Hypomagnesemia; K70.0 Alcoholic fatty liver; I50.23 Acute on chronic systolic (congestive) heart failure; Y90.8 Blood alcohol level of 240 mg/100 ml or more; F10.239 Alcohol dependence with withdrawal, unspecified; Z79.899 Other long term (current) drug therapy
CPT/HCPCS: 36415; 71045; 80048; 80053; 80076; 80307; 81003; 83735; 83880; 84484; 85025; 85027; 85610; 85730; 93005; 99285; J1160; J1940; J2060; J2560; J3475

== ENCOUNTER 2022-12-21 23:27 | Inpatient (IN) | payer OTHER, SELFPAY ==
--- NOTE | ~2022-12-21 | XR_ITS ---
EXAMINATION: XR CHEST CLINICAL INFORMATION: Dyspnea. History of CHF. COMPARISON: Chest 12/13/2022 TECHNIQUE: Frontal view of the chest was obtained. FINDINGS: The lungs are well-expanded and clear of acute process. The heart size and pulmonary vascularity is normal. No gross bony abnormality seen. XR/XR chest 1V IMPRESSION: Unremarkable chest exam. .
[2022-12-21 23:43] VITALS: BP 148/113; BP 156/117; PULSE 126; PULSE 170; RESP 30; TEMP 37.2; O2SAT 94; O2SAT 95; BMI 28.7
--- NOTE | 2022-12-21 23:48 | ECG_ITS ---
Test Reason : SYNCOPE Blood Pressure : / mmHG Vent. Rate : 125 BPM Atrial Rate : 000 BPM P-R Int : 000 ms QRS Dur : 104 ms QT Int : 324 ms P-R-T Axes : 000 058 182 degrees QTc Int : 467 ms Atrial fibrillation with rapid ventricular response ST & T wave abnormality, consider lateral ischemia Abnormal ECG When compared with ECG of 13-DEC-2022 13:34, T wave inversion now evident in Lateral leads Referred By: Generic ED Physician Electronically Signed By:ALYCIA MALIK
[2022-12-21 23:53] VITALS: BP 153/103; PULSE 119; RESP 27; O2SAT 94
[2022-12-22] VITALS (11 sets, daily range): BP systolic 98–173; BP diastolic 69–98; PULSE 82–126; RESP 16–27; TEMP 36.3–36.9; O2SAT 92–98; BMI 29.0
[2022-12-22 00:23] LABS: MANUAL DIFF FLAG NO
[2022-12-22 00:24] LABS: Basophils Absolute Auto 0.1 X10*3/uL (0.0-0.2); Basophils Percent Auto 0.7 % (0-2); Eosinophils Percent Auto 0.1 % (0-4); Hemoglobin 14.4 g/dl (14.0-18.0); Imm Gran Abs Auto 0.03 X10*3/uL (0.00-0.03); Imm Gran Pct Auto 0.4 % (0.0-0.4); Lymphocytes Absolute Auto 0.7 X10*3/uL (1.2-4.9); Mean Corpuscular HGB Conc 33.5 g/dl (31.0-36.0); Mean Corpuscular Hemoglobin 34.4 pg (27.0-33.0); Mean Corpuscular Volume 102.6 fL (80.0-98.0); Mean Platelet Volume 9.8 fL (9.4-12.4); Monocytes Absolute Auto 0.5 X10*3/uL (0.1-1.2); Monocytes Percent Auto 6.7 % (2-11); Neutrophils Absolute Auto 6.7 x10*3/uL (2.0-8.3); Neutrophils Percent Auto 83.1 % (45-73); Platelet Count 152 X10*3/uL (160-400); Red Blood Count 4.19 X10*6/uL (4.60-5.80); Red Cell Distribution Width 14.7 % (11.0-16.0)
--- NOTE | 2022-12-22 00:29 | ED_ITS ---
HPI - SOB/Dyspnea General Chief Complaint: Dyspnea Stated Complaint: sob afib Time Seen by Provider: 12/22/22 00:08 Source: patient Mode of arrival: EMS Limitations: no limitations History of Present Illness HPI Narrative: Patient comes in the emergency room complaining of shortness of breath, orthopnea, palpitations. Patient states that he is aware that he has atrial fibrillation. Patient went to drink yesterday, after he got home, the palpitations and shortness of breath started. Patient denies any syncopal episodes, patient states that he has a lot of chest pressure. Related Data Home Medications Medication Instructions Recorded Confirmed folic acid 1 mg tablet 1 mg PO DAILY 09/16/22 12/13/22 losartan 25 mg tablet 25 mg PO Q OTHER DAY 09/16/22 12/13/22 potassium chloride 10 mEq 10 meq PO DAILY 09/16/22 12/13/22 tablet,extended release spironolactone 25 mg tablet 25 mg PO DAILY 09/16/22 12/13/22 thiamine mononitrate (vit B1) 100 100 mg PO DAILY 09/16/22 12/13/22 mg tablet (Vitamin B-1 (mononitrate)) digoxin 125 mcg (0.125 mg) tablet 125 mcg PO DAILY 12/13/22 12/13/22 metoprolol succinate 50 mg 50 mg PO DAILY 12/13/22 12/13/22 tablet,extended release 24 hr Previous Rx's Medication Instructions Recorded amiodarone 200 mg tablet 200 mg PO DAILY 90 days #90 tabs 12/31/21 apixaban 5 mg tablet (Eliquis) 5 mg PO BID #180 tabs 12/31/21 furosemide 40 mg tablet 40 mg PO DAILY 90 days #90 tabs 12/31/21 empagliflozin 10 mg tablet 10 mg PO DAILY #30 tabs 11/18/22 (Jardiance) Allergies Allergy/AdvReac Type Severity Reaction Status Date / Time No Known Allergies Allergy Verified 08/31/22 03:36 [No Known Allergies*] Review of Systems Review of Systems: Constitutional : No Weight loss, No Fever, No Chills, No Night Sweats, No F atigue, No Malaise ENT/Mouth : No Hearing loss, No Ear Pain, No Nasal Congestion, No Sinus Pain, No Hoarseness, No sore throat, No Rhinorrhea, No Swallowing Difficulty Eyes: No Eye Pain, No Swelling, No Redness, No Foreign Body, No Discharge, No Vision Changes Cardiovascular : No Chest Pain, complaining of dyspnea, dyspnea with exertion, orthopnea palpitations Respiratory : No Cough, No Sputum, No Wheezing, No Smoke Exposure Gastrointestinal : No Nausea, No Vomiting, No Diarrhea, No Constipation, No abdominal Pain, No Hematochezia, No Melena Genitourinary : no irregular bleeding, No Dysuria, No Urinary Frequency, No Hematuria, No Urinary Incontinence, No Urgency, No Flank Pain, No Urinary Flow Changes, No Hesitancy Musculoskeletal : No joint pain, No Myalgias, No Joint Swelling Skin : No Skin Lesions, No rash Neuro : No Weakness, No Numbness, No Paresthesias, No Loss of Consciousness, No Dizziness, No Headache Psych : No Anxiety/Panic, No Depression, No SI/HI/AH/VH, No Social Issues, Heme/Lymph: No Bruising, No Bleeding,No Lymphadenopathy Endocrine : No Polyuria, No Polydipsia, No Temperature Intolerance [facility] Past Medical History Medical History Alcohol dependence with withdrawal Alcoholic hepatitis Atrial fibrillation with rapid ventricular response Chronic HFrEF (heart failure with reduced ejection fraction) HTN (hypertension) Surgical History No pertinent past surgical history Family History Family History Father CAD (coronary artery disease) Mother Atrial fibrillation Social History Social History Household Members: None Housing: Apartment Do you presently have visiting nurse or other home services: No Unable to assess alcohol history related to: Unable to respond Alcohol intake: current Alcohol intake frequency: a few times a week Alcohol type: hard liquor Patient Tobacco Use Status: Never used Tobacco Smoked in Last 30 Days: No Advance Directives: No Advance Directives Information Provided: Yes service: No Current occupational status: unemployed Physical Exam Vital Signs: Vital Signs: Last Vital Signs Temp 99.0 F 12/21/22 23:43 Pulse 94 12/22/22 00:57 Resp 22 H 12/22/22 00:57 BP 133/81 12/22/22 00:57 Pulse Ox 95 12/22/22 00:57 O2 Del Method CPAP 12/22/22 00:57 O2 Flow Rate 5 12/21/22 23:53 FiO2 30 12/22/22 00:57 Oxygen Flow Rate 5 12/21/22 23:43 BMI result Body Mass Index 28.7 Const: Other: Appearance: Alert. Oriented X3. No acute distress. Eyes: Pupils equal, round and reactive to light. ENT: Pharynx normal. Neck: Normal inspection. Neck supple. No lymph nodes noted. No crepitus CVS: Normal heart rate and rhythm. Pulses normal. Normal S1 and S2 +2 pitting edema bilaterally Respiratory: Bilateral crackles, dyspneic, respiratory rate 30, oxygen saturation drops to 86% on room air without any exertion Abdomen: Soft and nontender. No rigidity. No distention. Skin: Skin warm and dry. Normal skin color. Normal skin turgor. Extremities: No lower extremity edema. No Lacerations. No Rash Neuro: Oriented X 3. No motor deficit. No sensory deficit. Moving all extremities. No slurred speech. CN 2 through 12 grossly intact Psych: calm, cooperative, normal affect Course Course Course Narrative: -patient was given Lasix, started on CPAP, given 20 mg of Cardizem -EKG my interpretation: Atrial fibrillation with RVR, heart rate 125, ST segment depressions on V5 V6 ago along with atrial fibrillation, QTC 467 Medications Administered Discontinued Medications Generic Name Dose Route Start Last Admin Trade Name Freq PRN Reason Stop Dose Admin Diltiazem HCl 20 mg 12/22/22 00:25 12/22/22 00:44 Diltiazem Hcl 50 Mg/10 Ml Vial IVPUSH 12/22/22 00:26 20 mg STAT STA Administration Furosemide 60 mg 12/22/22 00:25 12/22/22 00:44 Furosemide 100 Mg/10 Ml Vial IVPUSH 12/22/22 00:26 60 mg ONCE ONE Administration Protocol Medical Decision Making Medical Decision Making MDM Narrative: -patient hypoxic on room air, 86% with any exertion. Patient now getting medications. Hospital admission is anticipated. -my interpretation of chest x-ray, vascular congestion present, likely secondary to CHF. -patient was weaned off CPAP. Patient is now on 4 L saturating 93%. -patient grudgingly accepted to stay in the hospital -patient's current heart rate 94, blood pressure 133/81, saturating 93% on 4 L. -I discussed the patient with Dr. Bourgeois, patient being admitted Admission/Observation Consideration of admission/observation: Escalation of care including admission/observation considered Consult Healthcare Provider Management of the patient was discussed with: Hospitalist Lab Data [facility] Lab Attestation statement: I reviewed the patient's lab results. 12/22/22 00:19 12/22/22 00:19 Labs: Lab Results 12/22/22 12/22/22 12/22/22 Range/Units 00:19 00:19 00:19 WBC 8.0 (4.8-10.8) X10*3/uL RBC 4.19 L (4.60-5.80) X10*6/uL Hgb 14.4 (14.0-18.0) g/dl Hct 43.0 (42.0-52.0) % MCV 102.6 H (80.0-98.0) fL MCH 34.4 H (27.0-33.0) pg MCHC 33.5 (31.0-36.0) g/dl RDW 14.7 (11.0-16.0) % Plt Count 152 L (160-400) X10*3/uL MPV 9.8 (9.4-12.4) fL Immature Gran % (Auto) 0.4 (0.0-0.4) % Neut % (Auto) 83.1 H (45-73) % Lymph % (Auto) 9.0 L (20-40) % [place] % (Auto) 6.7 (2-11) % Eos % (Auto) 0.1 (0-4) % Baso % (Auto) 0.7 (0-2) % Lymph # (Auto) 0.7 L (1.2-4.9) X10*3/uL [place] # (Auto) 0.5 (0.1-1.2) X10*3/uL Eos # (Auto) 0.0 (0.0-0.4) X10*3/uL Baso # (Auto) 0.1 (0.0-0.2) X10*3/uL Abs Immat Gran (auto) 0.03 (0.00-0.03) X10*3/uL Absolute Neuts (auto) 6.7 (2.0-8.3) x10*3/uL Absolute Nucleated RBC 0.000 (0.0-0.012) X10*3/uL Nucleated RBC % (auto) 0.0 (0.0-0.2) /100WBC Sodium 138 (135-145) mmol/L Potassium 3.7 (3.3-5.1) mmol/L Chloride 102 (96-108) mmol/L Carbon Dioxide 20 L (22-29) mmol/L Anion Gap 20 (12-20) BUN 12 (9-16) mg/dL Creatinine 1.11 (0.5-1.4) mg/dL Estim Creat Clear Calc 85.1 Estimated GFR > 60 Random Glucose 186 H (60-115) mg/dL Calcium 9.4 D (8.4-10.2) mg/dL Troponin I High Sens 44.9 H (<3.5-35.0) ng/L B-Natriuretic Peptide (<100) pg/mL 12/22/22 Range/Units 00:19 WBC (4.8-10.8) X10*3/uL RBC (4.60-5.80) X10*6/uL Hgb (14.0-18.0) g/dl Hct (42.0-52.0) % MCV (80.0-98.0) fL MCH (27.0-33.0) pg MCHC (31.0-36.0) g/dl RDW (11.0-16.0) % Plt Count (160-400) X10*3/uL MPV (9.4-12.4) fL Immature Gran % (Auto) (0.0-0.4) % Neut % (Auto) (45-73) % Lymph % (Auto) (20-40) % [place] % (Auto) (2-11) % Eos % (Auto) (0-4) % Baso % (Auto) (0-2) % Lymph # (Auto) (1.2-4.9) X10*3/uL [place] # (Auto) (0.1-1.2) X10*3/uL Eos # (Auto) (0.0-0.4) X10*3/uL Baso # (Auto) (0.0-0.2) X10*3/uL Abs Immat Gran (auto) (0.00-0.03) X10*3/uL Absolute Neuts (auto) (2.0-8.3) x10*3/uL Absolute Nucleated RBC (0.0-0.012) X10*3/uL Nucleated RBC % (auto) (0.0-0.2) /100WBC Sodium (135-145) mmol/L Potassium (3.3-5.1) mmol/L Chloride (96-108) mmol/L Carbon Dioxide (22-29) mmol/L Anion Gap (12-20) BUN (9-16) mg/dL Creatinine (0.5-1.4) mg/dL Estim Creat Clear Calc Estimated GFR Random Glucose (60-115) mg/dL Calcium (8.4-10.2) mg/dL Troponin I High Sens (<3.5-35.0) ng/L B-Natriuretic Peptide 3110 H (<100) pg/mL Radiology Impression Discussion of test interpretation with radiology: I have reviewed the radiologist's reading. Radiologist Impression: FINDINGS: The lungs are well-expanded and clear of acute process. The heart size and pulmonary vascularity is normal. No gross bony abnormality seen. XR/XR chest 1V IMPRESSION: Unremarkable chest exam. . ? Critical Care Time Critical Care Time Critical Care Time: Yes Total Critical Care Time: 90 Attestation: I have personally provided critical care time. Time includes review of lab data, radiology results, discussion with consultants, and monitoring for potential decompensation. Intervention performed as documented. Discharge Plan Discharge Clinical Impression: Acute exacerbation of congestive heart failure, Atrial fibrillation with RVR Patient Disposition: Admitted As Inpatient Prescriptions: No Action amiodarone 200 mg tablet 200 mg PO DAILY 90 Days Qty: 90 1RF Eliquis 5 mg tablet 5 mg PO BID Qty: 180 1RF furosemide 40 mg tablet 40 mg PO DAILY 90 Days Qty: 90 1RF Protocol: Hold for SBP< HOLD for SBP < : 90 Jardiance 10 mg tablet 10 mg PO DAILY Qty: 30 1RF digoxin 125 mcg (0.125 mg) tablet 125 mcg PO DAILY metoprolol succinate 50 mg tablet extended release 24 hr 50 mg PO DAILY thiamine mononitrate (vit B1) [Vitamin B-1 (mononitrate)] 100 mg tablet 100 mg PO DAILY losartan 25 mg tablet 25 mg PO Q OTHER DAY folic acid 1 mg tablet 1 mg PO DAILY spironolactone 25 mg tablet 25 mg PO DAILY potassium chloride 10 mEq tablet extended release 10 meq PO DAILY
[2022-12-22 00:39] LABS: Anion Gap 20 (12-20); Blood Urea Nitrogen 12 mg/dL (9-16); Calcium 9.4 mg/dL (8.4-10.2); Carbon Dioxide 20 mmol/L (22-29); Chloride 102 mmol/L (96-108); Creatinine Clr Calc Pharmacy 85.1; Estimated Glomerular Filt Rate > 60; Glucose Random 186 mg/dL (60-115); Potassium 3.7 mmol/L (3.3-5.1); Sodium 138 mmol/L (135-145)
[2022-12-22] MEDS: Furosemide 100 MG/10 ML VIAL 60 MG IVPUSH (00:44)
[2022-12-22] MEDS: dilTIAZem HCL 50 MG/10 ML VIAL 20 MG IVPUSH (00:44)
[2022-12-22 00:46] LABS: Troponin-I High Sensitivity 44.9 ng/L (<3.5-35.0)
[2022-12-22 00:54] LABS: B Type Natriuretic Peptide 3110 pg/mL (<100)
--- NOTE | 2022-12-22 01:17 | PC.NURSE ---
pt wants to come off CPAP-- states he doesn't feel as if it's doing anything. speaking full sentences.
[2022-12-22 03:09] LABS: Troponin-I High Sensitivity 47.8 ng/L (<3.5-35.0)
--- NOTE | 2022-12-22 04:58 | PC.NURSE ---
pt continues to wait for bed assignment. speaking fluently/clear, no respiratory distress noted. urinating adequately post lasix/clear/yellow. cont to monitor.
--- NOTE | 2022-12-22 04:59 | P.HPHOSP_ITS ---
History of Present Illness Date of Service: 12/22/22 Chief Complaint: Dyspnea This is a 57-year-old male with pertinent history of alcohol use disorder with steatosis, congestive heart failure with reduced ejection fraction (EF 10/15%), essential hypertension, paroxysmal atrial fibrillation on anticoagulation who presents to the emergency department for evaluation of dyspnea and lower extremity swelling. Patient states symptoms started 2 days prior to presentation. Shortness of breath is worse with laying down and with exertion. Admits that he has been noncompliant with his diet and his last alcoholic drink was yesterday. Patient was recently admitted and discharged on 12/16 with acute on chronic congestive heart failure with reduced ejection fraction. He denies fever, chills, chest discomfort, palpitations, abdominal pain, changes in urinary or bowel habits. In the emergency department, patient was found to be AFib with RVR and BNP found to be elevated Review of Systems Constitutional: Constitutional: Reports no additional constitutional complaints Cardiovascular: Cardiovascular: Reports dyspnea on exertion and Reports orthopnea Respiratory: Respiratory: Reports dyspnea on exertion Gastrointestinal: Gastrointestinal: Reports no additional gastrointestinal complaints Genitourinary: Genitourinary: Reports no additional male genitourinary complaints [facility] Medical History Alcohol dependence with withdrawal Alcoholic hepatitis Atrial fibrillation with rapid ventricular response Chronic HFrEF (heart failure with reduced ejection fraction) HTN (hypertension) Family History Father CAD (coronary artery disease) Mother Atrial fibrillation Surgical History No pertinent past surgical history Social History Household Members: None Housing: Apartment Do you presently have visiting nurse or other home services: No Unable to assess alcohol history related to: Unable to respond Alcohol intake: current Alcohol intake frequency: a few times a week Alcohol type: hard liquor Patient Tobacco Use Status: Never used Tobacco Smoked in Last 30 Days: No Advance Directives: No Advance Directives Information Provided: Yes service: No Current occupational status: unemployed Meds Allergies Allergy/AdvReac Type Severity Reaction Status Date / Time No Known Allergies Allergy Verified 08/31/22 03:36 [No Known Allergies*] Active Medications: Current Medications Acetaminophen (Acetaminophen 325 Mg Tablet) 650 mg PO Q6H PRN PRN Reason: Pain, Mild (Pain Scale 1-3) Acetaminophen (Acetaminophen Supp 650 Mg Supp.Rect) 650 mg TN Q6H PRN PRN Reason: Pain, Mild (Pain Scale 1-3) Melatonin (Melatonin 3 Mg Tablet) 6 mg PO BEDTIME PRN PRN Reason: Insomnia Ondansetron HCl (Ondansetron Hcl 4 Mg/2 Ml Vial) 4 mg IVPUSH Q8H PRN PRN Reason: Nausea and Vomiting Pharmacy Consult (Consult Rx Perform Med Rec) 1 each MISCELLANE ONCE PRN PRN Reason: Consult order Sodium Chloride (0.9 % Sodium Chloride Flush 3 Ml Syringe) 3 ml IVFLUSH [facility] Medications Medication Instructions Recorded Confirmed Last Taken Type folic acid 1 mg tablet 1 mg PO DAILY 09/16/22 12/13/22 10/06/22 History losartan 25 mg tablet 25 mg PO Q OTHER DAY 09/16/22 12/13/22 10/06/22 History potassium chloride 10 mEq 10 meq PO DAILY 09/16/22 12/13/22 10/06/22 History tablet,extended release spironolactone 25 mg tablet 25 mg PO DAILY 09/16/22 12/13/22 10/06/22 History thiamine mononitrate (vit B1) 100 100 mg PO DAILY 09/16/22 12/13/22 10/06/22 History mg tablet (Vitamin B-1 (mononitrate)) digoxin 125 mcg (0.125 mg) tablet 125 mcg PO DAILY 12/13/22 12/13/22 Unknown History metoprolol succinate 50 mg 50 mg PO DAILY 12/13/22 12/13/22 Unknown History tablet,extended release 24 hr Physical Exam Vital Signs and Narrative: Vital Signs: Last Vital Signs Temp 98.4 F 12/22/22 03:51 Pulse 100 12/22/22 03:51 Resp 20 12/22/22 03:51 BP 173/85 H 12/22/22 03:51 Pulse Ox 94 12/22/22 03:51 O2 Del Method Room Air 12/22/22 03:51 O2 Flow Rate 3 12/22/22 02:38 FiO2 30 12/22/22 00:57 Oxygen Flow Rate 5 12/21/22 23:43 BMI result Body Mass Index 28.7 Middle-aged male lying in bed in mild distress Neck supple, JVD + Regular rate and rhythm, S1-S2 heard Bilateral crackles Abdomen soft nontender, no guarding, no rigidity Patient is awake, alert and oriented to self, place, time and person ; no focal motor deficit Psych: Normal mood Bilateral pedal edema Results Labs 12/22/22 00:19 12/22/22 00:19 Labs: Laboratory Results - last 24 hr 12/22/22 12/22/22 12/22/22 00:19 00:19 00:19 MCV 102.6 H MCH 34.4 H MCHC 33.5 RDW 14.7 Plt Count 152 L MPV 9.8 Immature Gran % (Auto) 0.4 Neut % (Auto) 83.1 H Lymph % (Auto) 9.0 L [place] % (Auto) 6.7 Eos % (Auto) 0.1 Baso % (Auto) 0.7 Lymph # (Auto) 0.7 L [place] # (Auto) 0.5 Eos # (Auto) 0.0 Baso # (Auto) 0.1 Abs Immat Gran (auto) 0.03 Absolute Neuts (auto) 6.7 Absolute Nucleated RBC 0.000 Nucleated RBC % (auto) 0.0 Anion Gap 20 Estim Creat Clear Calc 85.1 Estimated GFR > 60 Random Glucose 186 H Calcium 9.4 D Troponin I High Sens 44.9 H B-Natriuretic Peptide 12/22/22 12/22/22 00:19 02:44 MCV MCH MCHC RDW Plt Count MPV Immature Gran % (Auto) Neut % (Auto) Lymph % (Auto) [place] % (Auto) Eos % (Auto) Baso % (Auto) Lymph # (Auto) [place] # (Auto) Eos # (Auto) Baso # (Auto) Abs Immat Gran (auto) Absolute Neuts (auto) Absolute Nucleated RBC Nucleated RBC % (auto) Anion Gap Estim Creat Clear Calc Estimated GFR Random Glucose Calcium Troponin I High Sens 47.8 H B-Natriuretic Peptide 3110 H Imaging Radiologist's Impressions: Impressions Chest X-Ray 12/21/22 23:56 IMPRESSION: Unremarkable chest exam. . Assessment and Plan (1) Acute exacerbation of congestive heart failure: Status: Acute (2) Atrial fibrillation with RVR: Status: Acute Plan This is a 57-year-old male with pertinent history of alcohol use disorder with steatosis, congestive heart failure with reduced ejection fraction (EF 10/15%), essential hypertension, paroxysmal atrial fibrillation on anticoagulation who presents to the emergency department for evaluation of dyspnea and lower extremity swelling. #. Acute on chronic congestive heart failure with reduced ejection fraction. Due to dietary noncompliance. Will admit patient and initiate IV Lasix. Continue metoprolol. Consulting Cardiology, appreciate assistance. Patient on ARB and spironolactone. Strict I's and O's #. AFib with RVR in the setting of above. Rate controlled in the ER after IV diltiazem. On amiodarone and metoprolol. Patient is on Eliquis #. Alcohol use disorder. Monitor for withdrawal, CIWA every 4 hour. Consulting addiction team #. Elevated troponin due to increased demand Med rec pending DVT prophylaxis: Eliquis Full code Cardiac diet Time Spent With Patient Time: Total time managing care of this patient today ____ minutes. Quality Stroke Does the patient have a stroke diagnosis?: No VTE Prior VTE?: No VTE Risk Level:: Medical - moderate - high VTE Device Contraindication: Treatment Not Indicated VTE Drug Contraindication: N/A - Med Ordered
[2022-12-22 05:21] LABS: MANUAL DIFF FLAG NO
[2022-12-22 05:24] LABS: Basophils Percent Auto 0.6 % (0-2); Eosinophils Absolute Auto 0.2 X10*3/uL (0.0-0.4); Eosinophils Percent Auto 2.4 % (0-4); Hematocrit 44.7 % (42.0-52.0); Hemoglobin 14.9 g/dl (14.0-18.0); Imm Gran Abs Auto 0.05 X10*3/uL (0.00-0.03); Imm Gran Pct Auto 0.8 % (0.0-0.4); Lymphocytes Absolute Auto 0.8 X10*3/uL (1.2-4.9); Lymphocytes Percent Auto 12.8 % (20-40); Mean Corpuscular HGB Conc 33.3 g/dl (31.0-36.0); Mean Corpuscular Hemoglobin 34.5 pg (27.0-33.0); Mean Corpuscular Volume 103.5 fL (80.0-98.0); Mean Platelet Volume 10.3 fL (9.4-12.4); Monocytes Absolute Auto 0.6 X10*3/uL (0.1-1.2); Monocytes Percent Auto 9.8 % (2-11); Neutrophils Absolute Auto 4.8 x10*3/uL (2.0-8.3); Neutrophils Percent Auto 73.6 % (45-73); Platelet Count 149 X10*3/uL (160-400); Red Blood Count 4.32 X10*6/uL (4.60-5.80); Red Cell Distribution Width 14.6 % (11.0-16.0); White Blood Count 6.6 X10*3/uL (4.8-10.8)
[2022-12-22 05:36] LABS: Anion Gap 20 (12-20); Blood Urea Nitrogen 12 mg/dL (9-16); Calcium 9.4 mg/dL (8.4-10.2); Carbon Dioxide 22 mmol/L (22-29); Chloride 100 mmol/L (96-108); Creatinine Clr Calc Pharmacy 88.3; Estimated Glomerular Filt Rate > 60; Glucose Random 134 mg/dL (60-115); Potassium 3.6 mmol/L (3.3-5.1); Sodium 138 mmol/L (135-145)
--- NOTE | 2022-12-22 07:34 | PHA.MEDREC ---
Pharmacy Consult ? Medication Reconciliation Pharmacy has completed the medication reconciliation. Patient is nonadherent and claims nothing has changed since he was last here. Claims he takes losartan every other day as to not split pills. Refill history dates back to last year for some medications, but endorses he still has some in the bottles [place]
[2022-12-22] MEDS: Furosemide 40 MG/4 ML VIAL IVPUSH (08:58)
[2022-12-22] MEDS: 0.9 % Sodium Chloride Flush 3 ML SYRINGE IVFLUSH (09:02)
--- NOTE | 2022-12-22 09:15 | MHC.CM.PN ---
Attempted to meet with patient in regards to discharge planning. Nursing care currently being provided. Will attempt to meet again. Continue to monitor for d/c needs.
--- NOTE | 2022-12-22 09:18 | PC.NURSE ---
Pt needs being met, pending bed assignment on [facility].
--- NOTE | 2022-12-22 10:04 | PM.CNCAR ---
History of Present Illness History of Present Illness Date of Service: 12/22/22 Chief complaint: Afib Narrative: This is a cardiology consultation regarding atrial fibrillation cardiomyopathy. Patient has a history of atrial fibrillation rapid rates and numerous admissions for the same. He has had multiple cardioversions. Unfortunately, he continues to drink. Most recently was just in the hospital for the same reason few days ago. At that time, alcohol also more than 300. He was counseled extensively and discharged home. After discharge, he states that he again drank alcohol in spite of all of these. He presents back to the hospital for lower extremity swelling as well as some shortness of breath. Per documentation, noncompliant with diet, continue drinking. He has been resumed on his oral medications. Also put on IV Lasix. States he is feeling better. Review of Systems Review of Systems: Yes all other systems are reviewed and are negative Constitutional: Constitutional: Reports as per HPI and Reports no additional constitutional complaints Eyes: Eyes: Reports as per HPI and Denies no additional eye complaints ENT: Denies system reviewed and no additional complaints, except as documented and Reports as per HPI Cardiovascular: Cardiovascular: Reports as per HPI, Reports no additional cardiovascular complaints, Denies acrocyanosis, Denies cool extremities, Denies chest pain, Reports leg edema, Denies lightheadedness, Denies palpitations and Reports dyspnea Respiratory: Respiratory: Reports as per HPI, Denies no additional respiratory complaints and Reports dyspnea Gastrointestinal: Gastrointestinal: Reports as per HPI and Denies no additional gastrointestinal complaints Genitourinary: Genitourinary: Reports no additional male genitourinary complaints and Reports as per HPI Musculoskeletal: Musculoskeletal: Reports no additional musculoskeletal complaints and Reports as per HPI Integumentary/Breasts: Skin/Breast: Reports system reviewed and no additional complaints, except as docu Neurologic: Reports system reviewed and no additional complaints, except as documented and Reports as per HPI Psychiatric: Psychiatric: Reports no additional psychiatric complaints and Reports as per HPI Endocrine: Endocrine: Reports no additional endocrine complaints, Reports as per HPI and Denies palpitations Hematologic/Lymphatic: Hematologic/Lymphatic: Reports no additional hematologic/lymphatic complaints and Reports as per HPI Allergic/Immunologic: Allergic/Immunologic: Reports no additional allergic/immunologic complaints and Reports as per HPI [facility] Past Medical History Medical History Alcohol dependence with withdrawal Alcoholic hepatitis Atrial fibrillation with rapid ventricular response Chronic HFrEF (heart failure with reduced ejection fraction) HTN (hypertension) Family History Family History Father CAD (coronary artery disease) Mother Atrial fibrillation Surgical History Surgical History No pertinent past surgical history Social History Social History Household Members: None Housing: Apartment Do you presently have visiting nurse or other home services: No Unable to assess alcohol history related to: Unable to respond Alcohol intake: current Alcohol intake frequency: a few times a week Alcohol type: hard liquor Patient Tobacco Use Status: Never used Tobacco Smoked in Last 30 Days: No Advance Directives: No Advance Directives Information Provided: Yes service: No Current occupational status: unemployed Meds Allergies Allergy/AdvReac Type Severity Reaction Status Date / Time No Known Allergies Allergy Verified 08/31/22 03:36 [No Known Allergies*] Active Medications: Current Medications Acetaminophen (Acetaminophen 325 Mg Tablet) 650 mg PO Q6H PRN PRN Reason: Pain, Mild (Pain Scale 1-3) Acetaminophen (Acetaminophen Supp 650 Mg Supp.Rect) 650 mg FL Q6H PRN PRN Reason: Pain, Mild (Pain Scale 1-3) Furosemide (Furosemide 40 Mg/4 Ml Vial) 40 mg IVPUSH DAILY [facility]; Protocol Last Admin: 12/22/22 08:58 Dose: 40 mg Melatonin (Melatonin 3 Mg Tablet) 6 mg PO BEDTIME PRN PRN Reason: Insomnia Ondansetron HCl (Ondansetron Hcl 4 Mg/2 Ml Vial) 4 mg IVPUSH Q8H PRN PRN Reason: Nausea and Vomiting Pharmacy Consult (Consult Rx Perform Med Rec) 1 each MISCELLANE ONCE PRN PRN Reason: Consult order Sodium Chloride (0.9 % Sodium Chloride Flush 3 Ml Syringe) 3 ml IVFLUSH QSHIFT [facility] Last Admin: 12/22/22 09:02 Dose: 3 ml Home Medications Medication Instructions Recorded Confirmed Last Taken Type folic acid 1 mg tablet 1 mg PO DAILY 09/16/22 12/22/22 10/06/22 History losartan 25 mg tablet 25 mg PO Q OTHER DAY 09/16/22 12/22/22 10/06/22 History potassium chloride 10 mEq 10 meq PO DAILY 09/16/22 12/22/22 10/06/22 History tablet,extended release spironolactone 25 mg tablet 25 mg PO DAILY 09/16/22 12/22/22 10/06/22 History thiamine mononitrate (vit B1) 100 100 mg PO DAILY 09/16/22 12/22/22 10/06/22 History mg tablet (Vitamin B-1 (mononitrate)) digoxin 125 mcg (0.125 mg) tablet 125 mcg PO DAILY 12/13/22 12/22/22 Unknown History metoprolol succinate 50 mg 50 mg PO DAILY 12/13/22 12/22/22 Unknown History tablet,extended release 24 hr Physical Exam Vital Signs: Vital Signs: Last Vital Signs Temp 97.7 F 12/22/22 07:13 Pulse 122 H 12/22/22 07:13 Resp 26 H 12/22/22 07:13 BP 116/77 12/22/22 07:13 Pulse Ox 92 12/22/22 07:13 O2 Del Method Room Air 12/22/22 07:13 O2 Flow Rate 3 12/22/22 02:38 FiO2 30 12/22/22 00:57 Oxygen Flow Rate 5 12/21/22 23:43 BMI result Body Mass Index 28.7 Const: General: comfortable and no acute distress Orientation/consciousness: patient oriented x3 HEENT: Other: Unremarkable Head: Yes normal to inspection Neck: Neck: Yes normal visual inspection Chest: Chest palpation & inspection: normal inspection of the chest Resp: Auscultation: crackles Cardio: Palpation: normal PMI Heart sounds: S1 normal heart sound present, S2 normal heart sound present, no gallops, no murmurs and no rubs GI: Palpation (GI): Soft to palpation Back/Spine/Pelvis: Other: unremarkable Skin: General skin exam: no rashes or lesions noted Neuro: General: patient oriented x3 Extrem: Other: 1+ edema. General: Yes normal to inspection Psych: Mental Status: mental status grossly normal Objective Labs and Meds 12/22/22 05:17 12/22/22 05:17 Lab results: Laboratory Results - last 24 hr 12/22/22 12/22/22 12/22/22 00:19 00:19 00:19 WBC 8.0 RBC 4.19 L Hgb 14.4 Hct 43.0 MCV 102.6 H MCH 34.4 H MCHC 33.5 RDW 14.7 Plt Count 152 L MPV 9.8 Immature Gran % (Auto) 0.4 Neut % (Auto) 83.1 H Lymph % (Auto) 9.0 L Ulster % (Auto) 6.7 Eos % (Auto) 0.1 Baso % (Auto) 0.7 Lymph # (Auto) 0.7 L Ulster # (Auto) 0.5 Eos # (Auto) 0.0 Baso # (Auto) 0.1 Abs Immat Gran (auto) 0.03 Absolute Neuts (auto) 6.7 Absolute Nucleated RBC 0.000 Nucleated RBC % (auto) 0.0 Sodium 138 Potassium 3.7 Chloride 102 Carbon Dioxide 20 L Anion Gap 20 BUN 12 Creatinine 1.11 Estim Creat Clear Calc 85.1 Estimated GFR > 60 Random Glucose 186 H Calcium 9.4 D Troponin I High Sens 44.9 H B-Natriuretic Peptide 12/22/22 12/22/22 12/22/22 00:19 02:44 05:17 WBC 6.6 RBC 4.32 L Hgb 14.9 Hct 44.7 MCV 103.5 H MCH 34.5 H MCHC 33.3 RDW 14.6 Plt Count 149 L MPV 10.3 Immature Gran % (Auto) 0.8 H Neut % (Auto) 73.6 H Lymph % (Auto) 12.8 L Ulster % (Auto) 9.8 Eos % (Auto) 2.4 Baso % (Auto) 0.6 Lymph # (Auto) 0.8 L Ulster # (Auto) 0.6 Eos # (Auto) 0.2 Baso # (Auto) 0.0 Abs Immat Gran (auto) 0.05 H Absolute Neuts (auto) 4.8 Absolute Nucleated RBC 0.000 Nucleated RBC % (auto) 0.0 Sodium Potassium Chloride Carbon Dioxide Anion Gap BUN Creatinine Estim Creat Clear Calc Estimated GFR Random Glucose Calcium Troponin I High Sens 47.8 H B-Natriuretic Peptide 3110 H 12/22/22 05:17 WBC RBC Hgb Hct MCV MCH MCHC RDW Plt Count MPV Immature Gran % (Auto) Neut % (Auto) Lymph % (Auto) Ulster % (Auto) Eos % (Auto) Baso % (Auto) Lymph # (Auto) Ulster # (Auto) Eos # (Auto) Baso # (Auto) Abs Immat Gran (auto) Absolute Neuts (auto) Absolute Nucleated RBC Nucleated RBC % (auto) Sodium 138 Potassium 3.6 Chloride 100 Carbon Dioxide 22 Anion Gap 20 BUN 12 Creatinine 1.07 Estim Creat Clear Calc 88.3 Estimated GFR > 60 Random Glucose 134 H Calcium 9.4 Troponin I High Sens B-Natriuretic Peptide ECG Interpretation: EKG with atrial fibrillation rate of 125/Min; lateral ST depression. Imaging Radiologist's impression: Impressions Chest X-Ray 12/21/22 23:56 IMPRESSION: Unremarkable chest exam. . Assessment and Plan (1) Atrial fibrillation with RVR: Status: Acute (2) Cardiomyopathy: Status: Acute (3) Alcohol abuse: Status: Acute (4) Acute exacerbation of congestive heart failure: Status: Acute Plan Multiple failed cardioversions; essentially permanent atrial fibrillation; noncompliance; continued alcohol abuse. Based on the recent CORTNEY, LVEF 10-15%. He it seems that he was referred for AV node ablation but that has not yet materialized. Overall, due to ongoing alcohol abuse as well as noncompliance not really much of options. At least resume all the home medications and see how he does. Per prior documentation, it seems that once these meds were resumed the heart rate actually got better which again indicates noncompliance. Will follow up with you. Time Spent With Patient Time: Total time managing care of this patient today ____ minutes. Procedures Date of Service Date of Service: 12/22/22
[2022-12-22] MEDS: Metoprolol Succinate ER 50 MG TAB.ER.24H PO (12:10)
[2022-12-22] MEDS: Spironolactone 25 MG TABLET PO (12:11)
[2022-12-22] MEDS: Apixaban 5 MG TABLET PO ×2 (12:11→21:39)
[2022-12-22] MEDS: Amiodarone HCL 200 MG TABLET PO (12:12)
[2022-12-22] MEDS: Thiamine HCL 100 MG TABLET PO (12:12)
[2022-12-22] MEDS: Folic Acid 1 MG TABLET PO (12:12)
[2022-12-22] MEDS: Losartan Potassium 25 MG TABLET PO (12:12)
[2022-12-22] MEDS: Digoxin 0.125 MG TABLET PO (12:12)
--- NOTE | 2022-12-22 13:45 | PC.NURSE ---
needs being met waiting on bed assignment
--- NOTE | 2022-12-22 14:51 | PM.EVENT ---
Event Note Date of Service: 12/22/22 Event Note: Chart reviewed patient examined. Agree with H&P and assessment and plan as outlined. Time Spent With Patient Time: Total time managing care of this patient today ____ minutes.
--- NOTE | 2022-12-22 16:00 | MHC.RECOVRN ---
Met with pt in ED prior to moving to [facility] after consult placed to Addiction Medicine for alcohol use. [place] [facility] [place]. Pt familiar with t/w from previous consults. Pt sitting in bed, awake, alert, easily engages in conversation, does not appear to be experiencing withdrawal. Pt reports alcohol use, a half a (750 mL) bottle maybe once a week. Pt reports drinking vodka and soda typically on the weekends, buys one 750 mL bottle weekly. 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 Pt states I don't have a problem with alcohol. Discussed past admissions, past consults, educated pt on recovery resources and supports. Pt declines referrals at this time. Provided with t/w contact information if needed. Discussed with Andressa Jones APRN.
--- NOTE | 2022-12-22 16:52 | P.EN_ITS ---
Event Note Date of Service: 12/22/22 Event Note: Addiction consult placed for patient Patient seen by director of engineering--declines resources or referrals at this time Please see director of engineering note dated 12/22/22 Time Spent With Patient Time: Total time managing care of this patient today ____ minutes.
--- NOTE | 2022-12-22 16:52 | PM.EVENT ---
Event Note Date of Service: 12/22/22 Event Note: Addiction consult placed for patient Patient seen by veterinary assistant technician--declines resources or referrals at this time Please see veterinary assistant technician note dated 12/22/22 Time Spent With Patient Time: Total time managing care of this patient today ____ minutes.
--- NOTE | 2022-12-22 18:28 | MHC.CM.PN ---
AJCOME 12/22. Lives alone. Independent. Drives. No DME/services. Pt is involved with [facility]. THRIVE assessment completed. [employer] given. Pt has concerns regarding rent, utilities and jobs. [employer]. Declines HCP. D/C plan: Home without services. Encouraged patient to work with [facility]. D/C plan: Home without services. Family will transport. CM following for any discharge needs.
--- NOTE | 2022-12-22 20:39 | PC.NURSE ---
patient received in bed with eyes open patient is non complaint patient was previous admitted a few days ago patient is being admitted patient is aware patient report was given to Mary the receiving nurse patient will be transported with safety maintained
[2022-12-23 03:39] VITALS: BP 158/75; PULSE 103; RESP 20; TEMP 37.1; O2SAT 94
[2022-12-23 07:16] VITALS: BP 123/87; PULSE 122; RESP 20; TEMP 36.2; O2SAT 95
[2022-12-23] MEDS: Spironolactone 25 MG TABLET PO (07:48)
[2022-12-23] MEDS: Digoxin 0.125 MG TABLET PO (07:49)
[2022-12-23] MEDS: Thiamine HCL 100 MG TABLET PO (07:49)
[2022-12-23] MEDS: Folic Acid 1 MG TABLET PO (07:49)
[2022-12-23] MEDS: Empagliflozin 10 MG TABLET PO (07:49)
[2022-12-23] MEDS: Amiodarone HCL 200 MG TABLET PO (07:49)
[2022-12-23] MEDS: Apixaban 5 MG TABLET PO (07:49)
[2022-12-23] MEDS: 0.9 % Sodium Chloride Flush 3 ML SYRINGE IVFLUSH (07:54)
[2022-12-23] MEDS: Metoprolol Succinate ER 50 MG TAB.ER.24H PO (07:57)
[2022-12-23] MEDS: Furosemide 40 MG TABLET PO (07:58)
--- NOTE | 2022-12-23 10:38 | PM.DS ---
DS: Providers Provider Date of Service: 12/23/22 Date of admission: 12/22/22 10:26 Date of discharge: 12/23/22 Primary care physician: Jerri Bennett MD Consults: 12/22/22 05:11 Consult to Cardiology Routine Consulting Provider: [facility] Cardiovascular Services Reason for consultation: CHF, AFib with RVR Has provider been notified: Yes 12/22/22 05:13 Addiction Medicine Routine Consulting Provider: Addiction Covering Reason for consultation: Alcohol use disorder DS: Diagnosis Discharge Diagnosis (1) Atrial fibrillation with RVR: Status: Acute (2) Cardiomyopathy: Status: Acute (3) Alcohol abuse: Status: Acute (4) Acute exacerbation of congestive heart failure: Status: Acute DS: Summary Hospital Course Hospital Course: 57-year-old male with pertinent history of alcohol use disorder with steatosis, congestive heart failure with reduced ejection fraction (EF 10/15%), essential hypertension, paroxysmal atrial fibrillation on anticoagulation who presents to the emergency department for evaluation of dyspnea and lower extremity swelling.? Patient states symptoms started 2 days prior to presentation.? Shortness of breath is worse with laying down and with exertion.? Admits that he has been noncompliant with his diet and his last alcoholic drink was yesterday.? Patient was recently admitted and discharged on 12/16 with acute on chronic congestive heart failure with reduced ejection fraction.? Hospital Course When further queried in the ER, patient states that he is not taking his medicines with any frequency. He was admitted to [facility] in restarted on his meds as previously ordered. He remained mildly tachycardic however much more control since admit. On the morning of discharge, patient is stating he feels well and wants to leave. I encouraged him to stay however he declined saying he had too many things to do . Given the fact that this is not treatment failure rather due to noncompliance, I believe he would be medically acceptable for discharge to follow-up as outpatient. I strongly encourage compliance with meds and abstinence from alcohol. He was offered a search for inpatient rehab declined. Time Spent with Patient Time attestation: Total time managing care of this patient today ____ minutes. Discharge coordination time: Greater than 30 minutes Quality: Safe Use of Opioids Does Pt have an Active Cancer Diagnosis on the Problem List?: No Quality: Stroke Does the patient have a stroke diagnosis?: No Physical Exam Vital Signs: Vital Signs: Last Vital Signs Temp 97.1 F 12/23/22 07:16 Pulse 122 H 12/23/22 07:16 Resp 20 12/23/22 07:16 BP 123/87 12/23/22 07:16 Pulse Ox 95 12/23/22 07:16 O2 Del Method Room Air 12/23/22 07:16 O2 Flow Rate 3 12/22/22 02:38 FiO2 30 12/22/22 00:57 Oxygen Flow Rate 5 12/21/22 23:43 BMI result Body Mass Index 29.0 Const: Other: Awake alert no acute distress. No signs of alcohol withdrawal Resp: Other: Clear to auscultation bilaterally no rales rhonchi or wheezes Cardio: Other: No S4; positive S1-S2; no S3 murmurs rubs or gallops GI: Other: Soft nontender nondistended normoactive bowel sounds Extrem: Other: No edema bilaterally DS: Data Data Completed and Pending Completed studies during hospitalization [Text1]: Procedures Detoxification Services for Substance Abuse Treatment (12/13/22) Insertion of Endotracheal Airway into Trachea, Via Natural or Artificial Opening (11/11/21) Respiratory Ventilation, 24-96 Consecutive Hours (11/11/21) [employer]ec[employer]al of Cardiac Rhythm, Single (11/11/21) Discharge Plan Discharge Anticipated Discharge Date/Time: 12/23/22 10:31 Patient Disposition: Home, Self-Care Discharge Diagnosis: Acute on chronic systolic heart failure Referrals: Jerri Bennett MD [Primary Care Provider] - 1 Week Discharge Medications: Continued amiodarone 200 mg tablet 200 mg PO DAILY 90 Days Qty: 90 1RF Eliquis 5 mg tablet 5 mg PO BID Qty: 180 1RF furosemide 40 mg tablet 40 mg PO DAILY 90 Days Qty: 90 1RF Protocol: Hold for SBP< HOLD for SBP < : 90 Jardiance 10 mg tablet 10 mg PO DAILY Qty: 30 1RF digoxin 125 mcg (0.125 mg) tablet 125 mcg PO DAILY metoprolol succinate 50 mg tablet extended release 24 hr 50 mg PO DAILY thiamine mononitrate (vit B1) [Vitamin B-1 (mononitrate)] 100 mg tablet 100 mg PO DAILY losartan 25 mg tablet 25 mg PO Q OTHER DAY folic acid 1 mg tablet 1 mg PO DAILY spironolactone 25 mg tablet 25 mg PO DAILY potassium chloride 10 mEq tablet extended release 10 meq PO DAILY Discharge Orders: Discharge Order (Routine); Ordered 12/23/22 Ordered By: Sameer Khan Diet: Advance to usual diet Activity on Discharge: As tolerated Stand Alone Forms: Patient Portal Discharge page Care Plan Goals: Absolutely no alcohol. Could be fatal if you drink again Health Concerns: It is impaired that you take your meds as ordered every day Plan of Treatment: Continue all meds at home as taken previously Assessment: See discharge summary
--- NOTE | 2022-12-23 11:14 | MHC.CM.PN ---
DP: PT HAS BEEN MEDICALLY CLEARED FOR DC HOME, NO SERVICES. RN AWARE. [facility] [place] 11:45 AM
== END 2022-12-23 11:30 | disposition home or self-care (01) | DRG 194 ==
LOC: HO.ED 12-22 02:31 → HO.EDOVER 12-22 02:40 → HO.IMC 12-22 19:15
PROVIDERS: Emergency Medicine; Admitting Provider Student in an Organized Health Care Education/Training Program; Emergency Provider Student in an Organized Health Care Education/Training Program; PCP Internal Medicine; Visit Provider Hospitalist
DX: I11.0 Hypertensive heart disease with heart failure (principal); I42.9 Cardiomyopathy, unspecified; Z79.01 Long term (current) use of anticoagulants; I48.21 Permanent atrial fibrillation; F10.10 Alcohol abuse, uncomplicated; I50.23 Acute on chronic systolic (congestive) heart failure; Z91.148 Patient's other noncompliance with medication regimen for other reason; Z79.899 Other long term (current) drug therapy
CPT/HCPCS: 36415; 71045; 80048; 83880; 84484; 85025; 93005; 99285; J1940

== ENCOUNTER 2023-01-07 17:14 | Emergency (ER) | payer OTHER, SELFPAY ==
[2023-01-07 17:26] VITALS: BP 152/88; PULSE 88; RESP 18; TEMP 37.1; O2SAT 96; BMI 28.7
--- NOTE | 2023-01-07 17:34 | ED.GENADULT ---
HPI - General Adult General Chief complaint: ETOH/Substance Use Stated complaint: ETOH Time Seen by Provider: 01/07/23 17:24 Source: patient Mode of arrival: EMS Limitations: no limitations History of Present Illness HPI narrative: Patient comes to the emergency room via ambulance, complaining of alcohol intoxication. Patient states that he was in a store. Patient realized that he had too much to drink and decided that it was a bad idea to Dr. Intoxicated. Patient called the ambulance and the ambulance brought him to emergency room. Patient states that he feels very ashamed that he had so much to drink. Patient complaining of palpitations, mild chest pain and shortness of breath. Patient states that over last few days he has noticed that his lower extremities are a little bit more swollen than usual. Patient has history of atrial fibrillation and CHF Related Data Home Medications Medication Instructions Recorded Confirmed folic acid 1 mg tablet 1 mg PO DAILY 09/16/22 12/22/22 losartan 25 mg tablet 25 mg PO Q OTHER DAY 09/16/22 12/22/22 potassium chloride 10 mEq 10 meq PO DAILY 09/16/22 12/22/22 tablet,extended release spironolactone 25 mg tablet 25 mg PO DAILY 09/16/22 12/22/22 thiamine mononitrate (vit B1) 100 100 mg PO DAILY 09/16/22 12/22/22 mg tablet (Vitamin B-1 (mononitrate)) digoxin 125 mcg (0.125 mg) tablet 125 mcg PO DAILY 12/13/22 12/22/22 metoprolol succinate 50 mg 50 mg PO DAILY 12/13/22 12/22/22 tablet,extended release 24 hr Previous Rx's Medication Instructions Recorded amiodarone 200 mg tablet 200 mg PO DAILY 90 days #90 tabs 12/31/21 apixaban 5 mg tablet (Eliquis) 5 mg PO BID #180 tabs 12/31/21 furosemide 40 mg tablet 40 mg PO DAILY 90 days #90 tabs 12/31/21 empagliflozin 10 mg tablet 10 mg PO DAILY #30 tabs 11/18/22 (Jardiance) Allergies Allergy/AdvReac Type Severity Reaction Status Date / Time No Known Allergies Allergy Verified 08/31/22 03:36 [No Known Allergies*] Review of Systems Review of Systems: Constitutional : No Weight loss, No Fever, No Chills, No Night Sweats, No Fatigue, No Malaise ENT/Mouth : No Hearing loss, No Ear Pain, No Nasal Congestion, No Sinus Pain, No Hoarseness, No sore throat, No Rhinorrhea, No Swallowing Difficulty Eyes: No Eye Pain, No Swelling, No Redness, No Foreign Body, No Discharge, No Vision Changes Cardiovascular : Complaining of mild chest pain and shortness of breath, denies orthopnea, complaining of lower extremity edema in the last few days, complaining of Palpitations Respiratory : No Cough, No Sputum, No Wheezing, No Smoke Exposure, No Dyspnea Gastrointestinal : No Nausea, No Vomiting, No Diarrhea, No Constipation, No abdominal Pain, No Hematochezia, No Melena Genitourinary : no irregular bleeding, No Dysuria, No Urinary Frequency, No Hematuria, No Urinary Incontinence, No Urgency, No Flank Pain, No Urinary Flow Changes, No Hesitancy Musculoskeletal : No joint pain, No Myalgias, No Joint Swelling Skin : No Skin Lesions, No rash Neuro : No Weakness, No Numbness, No Paresthesias, No Loss of Consciousness, No Dizziness, No Headache Psych : No Anxiety/Panic, No Depression, No SI/HI/AH/VH, patient complaining of alcohol intoxication Heme/Lymph: No Bruising, No Bleeding,No Lymphadenopathy Endocrine : No Polyuria, No Polydipsia, No Temperature Intolerance PMFSH Past Medical History Medical History Alcohol dependence with withdrawal Alcoholic hepatitis Atrial fibrillation with rapid ventricular response Cardiomyopathy Chronic HFrEF (heart failure with reduced ejection fraction) HTN (hypertension) Surgical History No pertinent past surgical history Family History Family History Father CAD (coronary artery disease) Mother Atrial fibrillation Social History Social History Household Members: None Housing: Apartment Do you presently have visiting nurse or other home services: No Unable to assess alcohol history related to: Unable to respond Alcohol intake: current Alcohol intake frequency: a few times a week Alcohol type: hard liquor Patient Tobacco Use Status: Never used Tobacco Smoked in Last 30 Days: No Use of substances other than those prescribed or required for medical reasons: No Advance Directives: No Advance Directives Information Provided: No service: No Current occupational status: unemployed Physical Exam ED Vital Signs: Vital Signs - 24 hr 01/07/23 17:26 01/07/23 18:25 01/07/23 18:31 Temperature 98.8 F Pulse Rate 88 137 H Respiratory Rate 18 Blood Pressure 152/88 H 115/76 128/49 L Pulse Oximetry 96 Oxygen Delivery Method Room Air 01/07/23 18:34 01/07/23 20:24 Temperature Pulse Rate 112 H Respiratory Rate 20 Blood Pressure 106/74 125/87 Pulse Oximetry 95 Oxygen Delivery Method Room Air BMI result Body Mass Index 28.7 Const Other: Appearance: Alert. Oriented X3. No acute distress. Eyes: Pupils equal, round and reactive to light. ENT: Pharynx normal. Neck: Normal inspection. Neck supple. No lymph nodes noted. No crepitus CVS: Normal heart rate and rhythm. Pulses normal. Normal S1 and S2 Respiratory: No respiratory distress. Breath sounds normal. No Wheezing. No rales Abdomen: Soft and nontender. No rigidity. No distention. Skin: Skin warm and dry. Normal skin color. Normal skin turgor. Extremities: No lower extremity edema. No Lacerations. No Rash Neuro: Oriented X 3. No motor deficit. No sensory deficit. Moving all extremities. No slurred speech. CN 2 through 12 grossly intact Psych: calm, cooperative, normal affect Course Course Course Narrative: -all of patient's labs and imaging pending -EKG pending Medications Administered Discontinued Medications Generic Name Dose Route Start Last Admin Trade Name Freq PRN Reason Stop Dose Admin Diltiazem HCl 20 mg 01/07/23 18:00 01/07/23 18:22 Diltiazem Hcl 50 Mg/10 Ml Vial IVPUSH 01/07/23 18:01 20 mg STAT STA Administration Metoprolol Tartrate 5 mg 01/07/23 20:38 01/07/23 20:43 Metoprolol Tartrate 5 Mg/5 Ml Vial IVPUSH 01/07/23 20:39 5 mg ONCE ONE Administration Metoprolol Tartrate 2.5 mg 01/07/23 21:39 01/07/23 22:00 Metoprolol Tartrate 5 Mg/5 Ml Vial IVPUSH 01/07/23 21:40 2.5 mg ONCE ONE Administration Medical Decision Making Medical Decision Making [facility] Narrative: -patient came in with AFib with RVR and having chest pain and shortness of breath. Admission was considered -patient received 20 mg of IV Cardizem for heart rate between 138 and 150. -heart rate improved to the 120s. Patient received a 2nd dose of medication, patient takes metoprolol, given 5 mg IV. -higher keeps improving, now approximately 110, still in atrial fibrillation on the monitor -patient getting now 2.5 mg of metoprolol and getting a 2nd set of troponin. -overall patient feeling much better -my interpretation of EKG: Atrial fibrillation with rapid ventricular response, heart rate 138, nonspecific ST changes, no T-wave inversion QTC 490 -discussed with the patient that the alcohol intoxication likely precipitated the AFib -2nd set of troponin pending. Heart rate has improved significantly. -anticipating discharge home -sign-out given to Dr. Danielle Differential Diagnosis Differential Diagnoses: The differential diagnosis associated with the presentation includes (Atrial fibrillation, alcohol intoxication) Admission/Observation Consideration of admission/observation: Escalation of care including admission/observation considered Lab Data [facility] Lab Attestation statement: I reviewed the patient's lab results. 01/07/23 18:05 01/07/23 18:05 Labs: Lab Results 01/07/23 01/07/23 01/07/23 Range/Units 18:05 18:05 18:05 WBC 4.9 (4.8-10.8) X10*3/uL RBC 3.99 L (4.60-5.80) X10*6/uL Hgb 13.7 L (14.0-18.0) g/dl Hct 40.1 L (42.0-52.0) % MCV 100.5 H (80.0-98.0) fL MCH 34.3 H (27.0-33.0) pg MCHC 34.2 (31.0-36.0) g/dl RDW 15.4 (11.0-16.0) % Plt Count 120 L (160-400) X10*3/uL MPV 9.8 (9.4-12.4) fL Immature Gran % (Auto) 0.2 (0.0-0.4) % Neut % (Auto) 67.0 (45-73) % Lymph % (Auto) 21.4 (20-40) % [place] % (Auto) 10.6 (2-11) % Eos % (Auto) 0.0 (0-4) % Baso % (Auto) 0.8 (0-2) % Lymph # (Auto) 1.1 L (1.2-4.9) X10*3/uL [place] # (Auto) 0.5 (0.1-1.2) X10*3/uL Eos # (Auto) 0.0 (0.0-0.4) X10*3/uL Baso # (Auto) 0.0 (0.0-0.2) X10*3/uL Abs Immat Gran (auto) 0.01 (0.00-0.03) X10*3/uL Absolute Neuts (auto) 3.3 (2.0-8.3) x10*3/uL Absolute Nucleated RBC 0.000 (0.0-0.012) X10*3/uL Nucleated RBC % (auto) 0.0 (0.0-0.2) /100WBC PT (10.0-13.1) SEC INR (0.9-1.1) Sodium 145 (135-145) mmol/L Potassium 4.0 (3.3-5.1) mmol/L Chloride 111 H (96-108) mmol/L Carbon Dioxide 16 L (22-29) mmol/L Anion Gap 22 H (12-20) BUN 11 (9-16) mg/dL Creatinine 1.25 (0.5-1.4) mg/dL Estim Creat Clear Calc 75.6 Estimated GFR 60 Random Glucose 132 H (60-115) mg/dL Calcium 9.2 (8.4-10.2) mg/dL Total Bilirubin 1.6 H (0.0-1.0) mg/dL Direct Bilirubin 0.6 H (0.0-0.5) mg/dL AST 51 H (5-37) U/L ALT 26 (0-40) U/L Alkaline Phosphatase 131 H (39-117) U/L Troponin I High Sens 40.4 H (<3.5-35.0) ng/L B-Natriuretic Peptide (<100) pg/mL Total Protein 7.1 (6.5-8.0) g/dL Albumin 4.0 (3.5-5.0) g/dL Ethyl Alcohol mg/dL 01/07/23 01/07/23 01/07/23 Range/Units 18:05 18:05 18:05 WBC (4.8-10.8) X10*3/uL RBC (4.60-5.80) X10*6/uL Hgb (14.0-18.0) g/dl Hct (42.0-52.0) % MCV (80.0-98.0) fL MCH (27.0-33.0) pg MCHC (31.0-36.0) g/dl RDW (11.0-16.0) % Plt Count (160-400) X10*3/uL MPV (9.4-12.4) fL Immature Gran % (Auto) (0.0-0.4) % Neut % (Auto) (45-73) % Lymph % (Auto) (20-40) % [place] % (Auto) (2-11) % Eos % (Auto) (0-4) % Baso % (Auto) (0-2) % Lymph # (Auto) (1.2-4.9) X10*3/uL [place] # (Auto) (0.1-1.2) X10*3/uL Eos # (Auto) (0.0-0.4) X10*3/uL Baso # (Auto) (0.0-0.2) X10*3/uL Abs Immat Gran (auto) (0.00-0.03) X10*3/uL Absolute Neuts (auto) (2.0-8.3) x10*3/uL Absolute Nucleated RBC (0.0-0.012) X10*3/uL Nucleated RBC % (auto) (0.0-0.2) /100WBC PT 12.4 (10.0-13.1) SEC INR 1.1 (0.9-1.1) Sodium (135-145) mmol/L Potassium (3.3-5.1) mmol/L Chloride (96-108) mmol/L Carbon Dioxide (22-29) mmol/L Anion Gap (12-20) BUN (9-16) mg/dL Creatinine (0.5-1.4) mg/dL Estim Creat Clear Calc Estimated GFR Random Glucose (60-115) mg/dL Calcium (8.4-10.2) mg/dL Total Bilirubin (0.0-1.0) mg/dL Direct Bilirubin (0.0-0.5) mg/dL AST (5-37) U/L ALT (0-40) U/L Alkaline Phosphatase (39-117) U/L Troponin I High Sens (<3.5-35.0) ng/L B-Natriuretic Peptide 1255 H (<100) pg/mL Total Protein (6.5-8.0) g/dL Albumin (3.5-5.0) g/dL Ethyl Alcohol 335 H* mg/dL Critical Care Time Critical Care Time Critical Care Time: Yes Total Critical Care Time: 75 Attestation: I have personally provided critical care time. Time includes review of lab data, radiology results, discussion with consultants, and monitoring for potential decompensation. Intervention performed as documented. Discharge Plan Discharge Clinical Impression: Atrial fibrillation with RVR Patient Disposition: Home, Self-Care Instructions: A-fib (Atrial Fibrillation) (ED), Alcohol Intoxication (ED) Additional Instructions: Please follow-up with your primary care physician tomorrow. If you have any worsening or new symptoms, please return to the emergency room or call 911 Prescriptions: No Action amiodarone 200 mg tablet 200 mg PO DAILY 90 Days Qty: 90 1RF Eliquis 5 mg tablet 5 mg PO BID Qty: 180 1RF furosemide 40 mg tablet 40 mg PO DAILY 90 Days Qty: 90 1RF Protocol: Hold for SBP< HOLD for SBP < : 90 Jardiance 10 mg tablet 10 mg PO DAILY Qty: 30 1RF digoxin 125 mcg (0.125 mg) tablet 125 mcg PO DAILY metoprolol succinate 50 mg tablet extended release 24 hr 50 mg PO DAILY thiamine mononitrate (vit B1) [Vitamin B-1 (mononitrate)] 100 mg tablet 100 mg PO DAILY losartan 25 mg tablet 25 mg PO Q OTHER DAY folic acid 1 mg tablet 1 mg PO DAILY spironolactone 25 mg tablet 25 mg PO DAILY potassium chloride 10 mEq tablet extended release 10 meq PO DAILY
[2023-01-07 18:25] VITALS: BP 115/76; PULSE 137
[2023-01-07 18:30] LABS: Alanine Aminotransferase 26 U/L (0-40); Alkaline Phosphatase 131 U/L (39-117); Anion Gap 22 (12-20); Aspartate Amino Transferase 51 U/L (5-37); Bilirubin Direct 0.6 mg/dL (0.0-0.5); Bilirubin Total 1.6 mg/dL (0.0-1.0); Blood Urea Nitrogen 11 mg/dL (9-16); Calcium 9.2 mg/dL (8.4-10.2); Carbon Dioxide 16 mmol/L (22-29); Chloride 111 mmol/L (96-108); Creatinine Clr Calc Pharmacy 75.6; Estimated Glomerular Filt Rate 60; Glucose Random 132 mg/dL (60-115); Sodium 145 mmol/L (135-145); Total Protein 7.1 g/dL (6.5-8.0)
[2023-01-07 18:31] VITALS: BP 128/49
[2023-01-07 18:34] VITALS: BP 106/74
[2023-01-07 20:24] VITALS: BP 125/87; PULSE 112; RESP 20; O2SAT 95
--- NOTE | 2023-01-07 21:07 | PC.NURSE ---
Pt adamant about walking to the bathroom- explained to patient that ti is not safe to do regarding his HR. [place] I am getting up
[2023-01-07 23:57] VITALS: BP 118/97; PULSE 96; RESP 19; O2SAT 97
== END 2023-01-07 23:58 | disposition home or self-care (01) ==
PROVIDERS: Emergency Provider Emergency Medicine; PCP Internal Medicine
DX: I48.20 Chronic atrial fibrillation, unspecified (principal); F10.220 Alcohol dependence with intoxication, uncomplicated; Y90.8 Blood alcohol level of 240 mg/100 ml or more; R06.02 Shortness of breath; I11.0 Hypertensive heart disease with heart failure; I50.23 Acute on chronic systolic (congestive) heart failure; Z79.899 Other long term (current) drug therapy; Z79.01 Long term (current) use of anticoagulants
CPT/HCPCS: 36415; 80048; 80076; 80307; 83880; 84484; 85025; 85610; 93005; 96374; 96375; 99285

== ENCOUNTER 2023-02-08 18:01 | Inpatient (IN) | payer OTHER, SELFPAY ==
--- NOTE | ~2023-02-08 | US_ITS ---
EXAMINATION: US VENOUS ULTRASOUND WITH DOPPLER LOWER EXTREMITY, BILATERAL CLINICAL INFORMATION: Bilateral lower extremity swelling. COMPARISON: None available. TECHNIQUE: Ultrasound of the deep veins is performed from the hip to the calf with compression sonography and color and pulse Doppler assessment. Spectral analysis with color-flow imaging is performed. FINDINGS: RIGHT: There is normal venous compression and respiratory variation and augmented flow. The visualized common femoral vein, superficial femoral vein, profunda femoral vein, popliteal vein, and the trifurcation region shows no evidence of deep venous thrombosis. There is no significant popliteal fossa cyst. LEFT: There is normal venous compression and respiratory variation and augmented flow. The visualized common femoral vein, superficial femoral vein, profunda femoral vein, popliteal vein, and the trifurcation region shows no evidence of deep venous thrombosis. There is no significant popliteal fossa cyst. If the patient's symptoms persist, followup ultrasound in 5 days 7 days might be of value to exclude proximal propagation from a non-visualized calf vein. US/US venous duplex LE BI IMPRESSION: No DVT demonstrated in the lower extremity.
--- NOTE | ~2023-02-08 | XR_ITS ---
EXAMINATION: XR CHEST CLINICAL INFORMATION: Shortness of breath COMPARISON: Previous chest x-ray most recent December 2022 TECHNIQUE: Frontal view of the chest was obtained. FINDINGS: The cardiac silhouette is enlarged but stable. Hilar and mediastinal contours are unremarkable. There is atelectasis or small infiltrate in the right lateral mid lung. The lungs are otherwise clear. No pleural effusion or pneumothorax. Degenerative changes of the spine. XR/XR chest 1V IMPRESSION: Stable enlargement of the cardiac silhouette. Atelectasis or small infiltrate in the right lateral mid lung.
--- NOTE | ~2023-02-08 | CT_ITS ---
EXAMINATION: CT ABDOMEN AND PELVIS WITHOUT CONTRAST CLINICAL INFORMATION: Abdominal distention COMPARISON: Previous CT of the abdomen and pelvis November 2022 TECHNIQUE: Multidetector volumetric imaging was performed from the superior aspect of the liver through the pubic symphysis. Sagittal and coronal reformatted images were obtained on the technologist's workstation. This CT examination was performed using dose optimization techniques as appropriate, variously including the following: *Automated exposure control *Adjustment of mA and/or kV according to patient size (this includes techniques or standardized protocols for targeted exams where dose is matched to indication/reason for exam; i.e. extremities or head) *Use of iterative reconstruction technique DLP: 758 mGy-cm FINDINGS: LUNG BASES: Enlarged heart. Very small pericardial effusion. New areas of atelectasis or small infiltrates at both lung bases. LIVER, GALLBLADDER, AND BILIARY TREE: The liver is enlarged. The liver is low in attenuation suggestive of fatty infiltration. Enhancing lesion at the junction of the anterior segment of the right lobe and medial segment of the left lobe seen on November 2022 exam not well appreciated without IV contrast. The gallbladder is normal in size. There is pericholecystic fluid. No gallstones are seen by CT. There is no biliary duct dilatation. PANCREAS: Fatty infiltration or atrophic changes of the pancreas. Pancreas is otherwise unremarkable. SPLEEN: Unremarkable. ADRENAL GLANDS: Unremarkable. KIDNEYS AND URETERS: Small cyst in the upper pole of the left kidney. No imaging follow-up recommended. New cortical thinning or scarring in the anterior lower pole of the right kidney likely corresponding to infarct is seen November 2022. Bilateral perinephric fat stranding, right greater than left. This appears increased from previous exam. The kidneys are otherwise unremarkable. BLADDER: Unremarkable. GASTROINTESTINAL TRACT: Diverticulosis of the colon. No evidence of diverticulitis. There is question of wall thickening and significant fat stranding surrounding the second and third portions of the duodenum. Area of questionable wall thickening and wall edema in the cecum and proximal ascending colon. Small and large bowel is otherwise unremarkable. The appendix is not seen. There is a small amount of ascites seen in the abdomen and pelvis. This is new or increased from previous exam. There is increased fat stranding of the small bowel mesentery. ABDOMINAL WALL: Small umbilical hernia containing fat. LYMPH NODES: Normal. VASCULAR: Atherosclerotic disease. PELVIC VISCERA: Calcifications in the prostate gland. The prostate gland does not appear enlarged. OSSEOUS STRUCTURES: Degenerative changes of the spine. Question Schmorl's node versus mild compression fracture of the superior endplate of the T12 vertebral body. CT/CT abdomen pelvis wo IV con IMPRESSION: New bilateral lower lobe atelectasis or small infiltrates. . New wall thickening of the second and third portions of the duodenum and significant stranding of the surrounding fat. Question wall thickening of the cecum and proximal right colon as well. Increasing small amount of ascites. Diverticulosis. No evidence of diverticulitis. Enlarged fatty liver. Known liver lesion not well appreciated without IV contrast. New fluid around the gallbladder. The gallbladder is normal in size and no gallstones are seen by CT. Evolving right renal infarct. Fleischner guidelines were followed.
--- NOTE | ~2023-02-08 | CT_ITS ---
EXAMINATION: CT ANGIOGRAM OF THE CHEST WITH AND WITHOUT CONTRAST (CT PULMONARY ANGIOGRAM FOR PE) CLINICAL INFORMATION: Reason for Exam shortness of breath COMPARISON: CT abdomen pelvis earlier today, CT chest 11/16/2021 TECHNIQUE: Prior to contrast administration, noncontrast localization images were obtained. Subsequently, multidetector volumetric imaging was performed from the thoracic inlet to below the diaphragms following the administration of 65 mL Omnipaque 350 intravenous contrast. No contrast reaction reported Sagittal, coronal, and MIP oblique sagittal reformatted images were obtained on the CT workstation, uploaded to PACS, and reviewed. This CT examination was performed using dose optimization techniques as appropriate, variously including the following: *Automated exposure control *Adjustment of mA and/or kV according to patient size (this includes techniques or standardized protocols for targeted exams where dose is matched to indication/reason for exam; i.e. extremities or head) *Use of iterative reconstruction technique Total exam dose-length product 295 mGy-cm FINDINGS: QUALITY OF STUDY/CONTRAST BOLUS: Satisfactory. PULMONARY ARTERIES: There is a small embolus present in the right upper lobe pulmonary artery along with a small embolus seen in the left lower lobe pulmonary artery. (see garcía images). THORACIC AORTA: No aneurysm. LUNG: There is an area of consolidation in the right upper lobe laterally as well as in the medial basal segment of the right lower lobe with bibasilar atelectasis as well. PLEURA: No pleural effusion or pneumothorax. MEDIASTINUM: There is mild cardiac enlargement. No pericardial effusion. No hilar or mediastinal lymphadenopathy. No evidence of septal bowing or right heart strain. CORONARY ARTERY CALCIFICATION: Moderate CHEST WALL/AXILLA: No axillary or internal mammary lymphadenopathy. OSSEOUS STRUCTURES: No acute or suspicious osseous abnormality. There is a superior endplate compression fracture involving most likely T12. UPPER ABDOMEN: A tiny amount of ascites is present. Probable hepatic steatosis. There is mild reflux of contrast into the hepatic veins to suggest elevated right heart pressures. CT/CT angio chest PE protocol IMPRESSION: 1. Small pulmonary emboli in the right upper lobe and left lower lobe. 2. Areas of consolidation in the right upper lobe and right lower lobe. 3. Tiny amount of ascites. 4. Other incidental findings as described above. VTE: positive.
[2023-02-08 18:12] VITALS: BP 150/100; PULSE 149; RESP 26; O2SAT 91; BMI 28.7
--- NOTE | 2023-02-08 18:22 | ECG_ITS ---
Test Reason : SOB Blood Pressure : / mmHG Vent. Rate : 140 BPM Atrial Rate : 000 BPM P-R Int : 000 ms QRS Dur : 114 ms QT Int : 330 ms P-R-T Axes : 000 -17 189 degrees QTc Int : 503 ms Atrial fibrillation with rapid ventricular response Low voltage QRS Nonspecific ST and T wave abnormality Abnormal ECG When compared with ECG of 07-JAN-2023 17:36, T wave inversion no longer evident in Lateral leads Referred By: Lee Lynn Electronically Signed By:Wally Arreola
--- NOTE | 2023-02-08 18:24 | PC.NURSE ---
pt a&ox3, pt is tachycardic, tachypneic, 100% on 2L nasal cannula. sinus tachycardia with occasional pvc's on the engine monitor. pt comes in after becoming extremely lightheaded at work and telling his supervisor [employer] that he felt like he was going to pass out. security at pt's work called ems and was transported to [facility]. pt verbalizing lightheadedness and SOB. pt increasingly diaphoretic. pt able to speak in full sentences displaying no WOB. lung sounds clear throughout.
[2023-02-08] MEDS: Furosemide 40 MG/4 ML VIAL IVPUSH (18:25)
--- NOTE | 2023-02-08 18:29 | PC.NURSE ---
18g L ac by ems [employer]- patent. 40mg ivp lasix per pa order given. 1inch nitro paste applied to left chest by ems removed and cleaned per pa verbal order.
[2023-02-08] MEDS: dilTIAZem HCL 50 MG/10 ML VIAL 10 MG IVPUSH (18:51)
[2023-02-08 18:54] LABS: MANUAL DIFF FLAG NO
--- NOTE | 2023-02-08 18:54 | PC.NURSE ---
diltiazem IVP administered per provider order. pharmacy called to bring down diltiazem PO - will administer when able.
[2023-02-08 18:58] LABS: Appearance Urine Clear; Color Urine Dark Yellow; Glucose Urine UA 250 mg/dL (Negative); Leukocyte Esterase Urine Negative (Negative); Nitrite Urine Negative (Negative); Specific Gravity - Urine 1.015 (1.005-1.025); UMIC TRIGGER UACC YES; Urine Blood Negative (Negative); Urine Ketones Negative (Negative); Urine Protein 100 (2+) mg/dL (Neg-Trace)
[2023-02-08 19:01] LABS: Bacteria Urine None Seen (None Seen); Hyaline Casts Urine 0-2 /LPF (0-2); RBC Urine 0-2 /HPF (0-2); Squamous Epithelial Cell Urine 0-2 /HPF (0-2); WBC Urine 0-5 /HPF (0-5)
[2023-02-08 19:01] LABS: INTERNATIONAL NORM RATIO 1.2 (0.9-1.1); Prothrombin Time 14.8 SEC (11.1-13.3)
[2023-02-08 19:04] LABS: Partial Thromboplastin Time 27.7 SEC (26.0-36.4)
[2023-02-08 19:07] LABS: Basophils Percent Auto 0.4 % (0-2); Eosinophils Percent Auto 0.1 % (0-4); Hematocrit 36.8 % (42.0-52.0); Hemoglobin 12.5 g/dl (14.0-18.0); Imm Gran Abs Auto 0.17 X10*3/uL (0.00-0.03); Imm Gran Pct Auto 1.9 % (0.0-0.4); Lymphocytes Percent Auto 11.3 % (20-40); Mean Corpuscular Hemoglobin 36.7 pg (27.0-33.0); Mean Corpuscular Volume 107.9 fL (80.0-98.0); Monocytes Absolute Auto 0.9 X10*3/uL (0.1-1.2); Monocytes Percent Auto 10.1 % (2-11); Neutrophils Percent Auto 76.2 % (45-73); Platelet Count 220 X10*3/uL (160-400); Red Blood Count 3.41 X10*6/uL (4.60-5.80); Red Cell Distribution Width 20.8 % (11.0-16.0); White Blood Count 9.1 X10*3/uL (4.8-10.8)
[2023-02-08 19:12] LABS: Ethanol 174 mg/dL
[2023-02-08 19:14] LABS: Alanine Aminotransferase 228 U/L (0-40); Albumin Level 3.8 g/dL (3.5-5.0); Alkaline Phosphatase 328 U/L (39-117); Anion Gap 16 (12-20); Aspartate Amino Transferase 422 U/L (5-37); Bilirubin Total 3.2 mg/dL (0.0-1.0); Blood Urea Nitrogen 22 mg/dL (9-16); Calcium 8.6 mg/dL (8.4-10.2); Carbon Dioxide 27 mmol/L (22-29); Chloride 93 mmol/L (96-108); Estimated Glomerular Filt Rate 56; Glucose Random 149 mg/dL (60-115); Lipase 17 U/L (8-78); Magnesium 1.8 mg/dL (1.6-2.6); Potassium 2.9 mmol/L (3.3-5.1); Sodium 133 mmol/L (135-145)
[2023-02-08 19:21] LABS: Troponin-I High Sensitivity 45.1 ng/L (<3.5-35.0)
--- NOTE | 2023-02-08 19:26 | ED.GENADULT ---
HPI - General Adult General Chief complaint: Dyspnea Stated complaint: sob/chest pain Time Seen by Provider: 02/08/23 18:06 Source: patient, RN notes reviewed and old records reviewed Mode of arrival: EMS Limitations: no limitations History of Present Illness HPI narrative: 57-year-old male with past medical history significant for atrial fibrillation on Eliquis, congestive heart failure on Lasix, spironolactone presents, alcohol abuse for evaluation of shortness of breath and lightheadedness. Patient reports that he was at work around 2 hours prior to arrival when he started to feel lightheaded and ?felt like I was going to drop. ? He reports some associated chest pain Patient reports increased edema for the last week as well as abdominal distension He reports his last drink of alcohol was on Wednesday in [place] ?had a couple of beers. ? Patient was given an inch of nitropaste firm EMS prior to arrival He arrives in AFib with RVR with heart rate as high as 140 No fevers, chills or coughing Related Data Home Medications Medication Instructions Recorded Confirmed folic acid 1 mg tablet 1 mg PO DAILY 09/16/22 02/08/23 losartan 25 mg tablet 25 mg PO Q OTHER DAY 09/16/22 02/08/23 potassium chloride 10 mEq 10 meq PO DAILY 09/16/22 02/08/23 tablet,extended release spironolactone 25 mg tablet 25 mg PO DAILY 09/16/22 02/08/23 thiamine mononitrate (vit B1) 100 100 mg PO DAILY 09/16/22 02/08/23 mg tablet (Vitamin B-1 (mononitrate)) digoxin 125 mcg (0.125 mg) tablet 125 mcg PO DAILY 12/13/22 02/08/23 metoprolol succinate 50 mg 50 mg PO DAILY 12/13/22 02/08/23 tablet,extended release 24 hr Previous Rx's Medication Instructions Recorded amiodarone 200 mg tablet 200 mg PO DAILY 90 days #90 tabs 12/31/21 apixaban 5 mg tablet (Eliquis) 5 mg PO BID #180 tabs 12/31/21 empagliflozin 10 mg tablet 10 mg PO DAILY #30 tabs 11/18/22 (Jardiance) furosemide 40 mg tablet 40 mg PO DAILY 90 days #90 tabs 01/18/23 Allergies Allergy/AdvReac Type Severity Reaction Status Date / Time No Known Allergies Allergy Verified 02/08/23 18:23 [No Known Allergies*] Review of Systems Constitutional: Constitutional: Reports as per HPI, Denies chills, Denies fever(s), Reports headache(s), Reports weakness and Reports weight gain ENT: Reports headache(s) Cardiovascular: Cardiovascular: Reports Abdominal Distension, Reports chest pain, Reports rapid heart rate, Reports leg edema, Reports lightheadedness, Reports palpitations and Reports dyspnea Respiratory: Respiratory: Denies cough and Reports dyspnea Gastrointestinal: Gastrointestinal: Denies vomiting Genitourinary: Genitourinary: Denies difficulty urinating and Denies dysuria Neurologic: Reports headache(s), Denies focal weakness and Reports weakness Endocrine: Endocrine: Reports palpitations PMFSH Past Medical History Medical History Alcohol dependence with withdrawal Alcoholic hepatitis Atrial fibrillation with rapid ventricular response Cardiomyopathy Chronic HFrEF (heart failure with reduced ejection fraction) HTN (hypertension) Surgical History No pertinent past surgical history Family History Family History Father CAD (coronary artery disease) Mother Atrial fibrillation Social History Social History Household Members: None Housing: Apartment Do you presently have visiting nurse or other home services: No Unable to assess alcohol history related to: Unable to respond Alcohol intake: current Alcohol intake frequency: a few times a week Alcohol type: hard liquor Patient Tobacco Use Status: Never used Tobacco Smoked in Last 30 Days: No Use of substances other than those prescribed or required for medical reasons: No Advance Directives: No Advance Directives Information Provided: No service: No Current occupational status: unemployed Physical Exam ED Vital Signs: Vital Signs - 24 hr 02/08/23 18:12 02/08/23 20:29 02/08/23 21:37 Temperature 97.9 F 98.1 F Pulse Rate 149 H 126 H 109 H Respiratory Rate 26 H 24 H 22 H Blood Pressure 126/81 103/72 Pulse Oximetry 91 L 100 99 Oxygen Delivery Method Nasal Cannula Room Air Nasal Cannula Oxygen Flow Rate 2 BMI result Body Mass Index 28.7 Const General: healthy appearing, alert, awake, acute distress mild and diaphoretic Nutritional Appearance: well nourished Orientation/consciousness: patient oriented x3 [facility] Head: Yes normocephalic and Yes atraumatic Eyes Eyelids: Yes eyelids normal Conjunctivae: conjunctivae normal Sclerae: scleral abnormal bilateral (Scleral icterus) Corneas: corneas normal Pupils: Equal, round and reactive pupils present EOM: EOMs intact bilaterally Neck Neck: Yes full ROM Resp Effort & Inspection: normal respiratory effort, able to speak in complete sentences, no audible wheezes and not labored Auscultation: clear to auscultation bilaterally Cardio Other: 2- 3+ bilateral pitting edema to lower extremities Rate: tachycardic Rhythm: abnormal rhythm and regular rhythm GI Palpation (GI): Soft to palpation, not firm, nontender, no guarding and not rigid Skin General skin exam: elasticity normal Neuro General: patient oriented x3 Cranial nerves: Yes CN's II-XII intact bilaterally, Yes Equal, round and reactive pupils present and Yes Bilaterally intact EOM present Cognition (Neuro): normal cognition Extrem Other: Moving all extremities well without any obvious deformities Course Reevaluation(s) Reevaluation #1: Patient reports that he is no longer taking digoxin. His chest x-ray does not show acute congestive heart failure. His BNP is elevated but consistent with his previous baseline. The patient has not been hypoxic while on 2 L via nasal cannula. He still remains tachycardic in AFib as high as 130. He was given Cardizem 10 mg IV push followed by 60 mg oral. Time: 20:06 Reevaluation #2: Patient's heart rate now in the 90s to low 100s after receiving Lopressor 5 mg IV. After discussing the patient he reports that he has missed several doses of Eliquis. Given the tachycardia, reported hypoxia with a CT angiography of the chest. Time: 21:11 Reevaluation #3: Received call from [facility] the patient has a small pulmonary emboli in the right upper lobe and left lower lobe. The patient reports he took his Eliquis this morning, but he is not have a reliable historian. I discussed with the hospitalist, Dr. cole who recommends Lovenox which was ordered. Time: 23:31 Medications Administered Discontinued Medications Generic Name Dose Route Start Last Admin Trade Name Freq PRN Reason Stop Dose Admin Diltiazem HCl 10 mg 02/08/23 18:37 02/08/23 18:51 Diltiazem Hcl 50 Mg/10 Ml Vial IVPUSH 02/08/23 18:38 10 mg STAT STA Administration Protocol Diltiazem HCl 60 mg 02/08/23 18:37 02/08/23 19:31 Diltiazem Hcl 60 Mg Tablet PO 02/08/23 18:38 60 mg ONCE ONE Administration Protocol Furosemide 40 mg 02/08/23 18:37 02/08/23 18:25 Furosemide 40 Mg/4 Ml Vial IVPUSH 02/08/23 18:38 40 mg STAT STA Administration Protocol Iohexol 100 ml 02/08/23 22:14 02/08/23 22:14 Iohexol 350 Mg/Ml 100 Ml Infus..Btl IV 02/08/23 22:15 65 ml ONCE ONE Administration Metoprolol Tartrate 5 mg 02/08/23 20:29 02/08/23 20:39 Metoprolol Tartrate 5 Mg/5 Ml Vial IVPUSH 02/08/23 20:30 5 mg ONCE ONE Administration Potassium Chloride 40 meq 02/08/23 19:25 02/08/23 19:31 Potassium Chloride Er 20 Meq Tab.Er.Prt PO 02/08/23 19:26 40 meq ONCE ONE Administration Medical Decision Making Medical Decision Making MDM Narrative: Patient arrives via EMS on CPAP. They report that they found the patient on oxygen saturation of 78% and his heart rate was approximately 140. The blood pressure for EMS was 143/100. They gave him an inch of nitropaste. Here I have to the ER with a room air oxygen saturation of 98-100%. He was immediately transitioned to nasal cannula. On exam he does have significant lower extremity edema, he does not have any crackles. I did order a dose of Lasix 40 mg IV given the reported hypoxia and pedal edema with history of heart failure. EKG confirms atrial fibrillation with RVR with a ventricular rate of 140. Chest x-ray did not appear to show significant pulmonary vascular congestion, therefore I have a nitro paste removed in hopes to improve the patient's blood pressure so he could be given antiarrhythmic medication. Labs are pending at this time Differential Diagnosis Differential Diagnoses: The differential diagnosis associated with the presentation includes Congestive heart failure Atrial fibrillation with RVR PE Anasarca Liver failure Pneumonia ACS Admission/Observation Consideration of admission/observation: Escalation of care including admission/observation considered Consult Healthcare Provider Management of the patient was discussed with: Hospitalist Lab Data MDM Lab Attestation statement: I reviewed the patient's lab results. Patient has a white count of 9.1 which is slightly increased from his baseline he does have a mild left shift. He also has a mild anemia with a hemoglobin 12.5 and hematocrit 36.8. Patient's sodium is low at 133 with a potassium is also low at 2.9. This was repleted orally. Renal function within normal limits. Patient has and mild transaminitis any history of liver disease. His initial troponin was 45.1 and a repeat of 39.8 without EKG changes. 02/08/23 18:49 02/08/23 18:49 Labs: Lab Results 02/08/23 02/08/23 02/08/23 Range/Units 18:45 18:45 18:45 WBC (4.8-10.8) X10*3/uL RBC (4.60-5.80) X10*6/uL Hgb (14.0-18.0) g/dl Hct (42.0-52.0) % MCV (80.0-98.0) fL MCH (27.0-33.0) pg MCHC (31.0-36.0) g/dl RDW (11.0-16.0) % Plt Count (160-400) X10*3/uL MPV (9.4-12.4) fL Immature Gran % (Auto) (0.0-0.4) % Neut % (Auto) (45-73) % Lymph % (Auto) (20-40) % [place] % (Auto) (2-11) % Eos % (Auto) (0-4) % Baso % (Auto) (0-2) % Lymph # (Auto) (1.2-4.9) X10*3/uL [place] # (Auto) (0.1-1.2) X10*3/uL Eos # (Auto) (0.0-0.4) X10*3/uL Baso # (Auto) (0.0-0.2) X10*3/uL Abs Immat Gran (auto) (0.00-0.03) X10*3/uL Absolute Neuts (auto) (2.0-8.3) x10*3/uL Absolute Nucleated RBC (0.0-0.012) X10*3/uL Nucleated RBC % (auto) (0.0-0.2) /100WBC PT (11.1-13.3) SEC INR (0.9-1.1) APTT (26.0-36.4) SEC Sodium (135-145) mmol/L Potassium (3.3-5.1) mmol/L Chloride (96-108) mmol/L Carbon Dioxide (22-29) mmol/L Anion Gap (12-20) BUN (9-16) mg/dL Creatinine (0.5-1.4) mg/dL Estim Creat Clear Calc Estimated GFR Random Glucose (60-115) mg/dL Calcium (8.4-10.2) mg/dL Phosphorus (2.7-4.5) mg/dL Magnesium (1.6-2.6) mg/dL Total Bilirubin (0.0-1.0) mg/dL AST (5-37) U/L ALT (0-40) U/L Alkaline Phosphatase (39-117) U/L Troponin I High Sens (<3.5-35.0) ng/L B-Natriuretic Peptide (<100) pg/mL Total Protein (6.5-8.0) g/dL Albumin (3.5-5.0) g/dL Lipase (8-78) U/L Urine Color Dark Yellow Urine Appearance Clear Urine pH 6.0 (5.0-9.0) Ur Specific [place] 1.015 (1.005-1.025) Urine Protein 100 (2+) H (Neg-Trace) mg/dL Urine Glucose (UA) 250 H (Negative) mg/dL Urine Ketones Negative (Negative) mg/dL Urine Blood Negative (Negative) Urine Nitrite Negative (Negative) Ur Leukocyte Esterase Negative (Negative) Urine RBC 0-2 (0-2) /HPF Urine WBC 0-5 (0-5) /HPF Ur Squamous Epith Cells 0-2 (0-2) /HPF Urine Bacteria None Seen (None Seen) Hyaline Casts 0-2 (0-2) /LPF Digoxin (0.8-2.0) ng/mL Urine Opiates Screen Not Detected (Not Detect) Urine Fentanyl Screen Not Detected (Not Detect) Ur Barbiturates Screen POSITIVE H (Not Detect) Ur Phencyclidine Scrn Not Detected (Not Detect) Ur Amphetamines Screen Not Detected (Not Detect) U Benzodiazepines Scrn Not Detected (Not Detect) Urine Cocaine Screen Not Detected (Not Detect) U Marijuana (THC) Screen Not Detected (Not Detect) Ethyl Alcohol mg/dL Influenza Type A (PCR) NEGATIVE (Negative) Influenza Type B (PCR) NEGATIVE (Negative) RSV RNA Qual (PCR) NEGATIVE (Negative) SARS-CoV-2 RNA (RT-PCR) NEGATIVE (Negative) 02/08/23 02/08/23 02/08/23 Range/Units 18:48 18:49 18:49 WBC 9.1 (4.8-10.8) X10*3/uL RBC 3.41 L (4.60-5.80) X10*6/uL Hgb 12.5 L (14.0-18.0) g/dl Hct 36.8 L (42.0-52.0) % MCV 107.9 H (80.0-98.0) fL MCH 36.7 H (27.0-33.0) pg MCHC 34.0 (31.0-36.0) g/dl RDW 20.8 H (11.0-16.0) % Plt Count 220 D (160-400) X10*3/uL MPV 11.0 (9.4-12.4) fL Immature Gran % (Auto) 1.9 H (0.0-0.4) % Neut % (Auto) 76.2 H (45-73) % Lymph % (Auto) 11.3 L (20-40) % [place] % (Auto) 10.1 (2-11) % Eos % (Auto) 0.1 (0-4) % Baso % (Auto) 0.4 (0-2) % Lymph # (Auto) 1.0 L (1.2-4.9) X10*3/uL [place] # (Auto) 0.9 (0.1-1.2) X10*3/uL Eos # (Auto) 0.0 (0.0-0.4) X10*3/uL Baso # (Auto) 0.0 (0.0-0.2) X10*3/uL Abs Immat Gran (auto) 0.17 H (0.00-0.03) X10*3/uL Absolute Neuts (auto) 7.0 (2.0-8.3) x10*3/uL Absolute Nucleated RBC 0.000 (0.0-0.012) X10*3/uL Nucleated RBC % (auto) 0.0 (0.0-0.2) /100WBC PT 14.8 H (11.1-13.3) SEC INR 1.2 H (0.9-1.1) APTT 27.7 (26.0-36.4) SEC Sodium 133 L (135-145) mmol/L Potassium 2.9 L D (3.3-5.1) mmol/L Chloride 93 L (96-108) mmol/L Carbon Dioxide 27 (22-29) mmol/L Anion Gap 16 (12-20) BUN 22 H (9-16) mg/dL Creatinine 1.33 (0.5-1.4) mg/dL Estim Creat Clear Calc 71.0 Estimated GFR 56 Random Glucose 149 H (60-115) mg/dL Calcium 8.6 D (8.4-10.2) mg/dL Phosphorus (2.7-4.5) mg/dL Magnesium 1.8 (1.6-2.6) mg/dL Total Bilirubin 3.2 H (0.0-1.0) mg/dL AST 422 H (5-37) U/L ALT 228 H (0-40) U/L Alkaline Phosphatase 328 H (39-117) U/L Troponin I High Sens (<3.5-35.0) ng/L B-Natriuretic Peptide (<100) pg/mL Total Protein 7.0 (6.5-8.0) g/dL Albumin 3.8 (3.5-5.0) g/dL Lipase 17 (8-78) U/L Urine Color Urine Appearance Urine pH (5.0-9.0) Ur Specific [place] (1.005-1.025) Urine Protein (Neg-Trace) mg/dL Urine Glucose (UA) (Negative) mg/dL Urine Ketones (Negative) mg/dL Urine Blood (Negative) Urine Nitrite (Negative) Ur Leukocyte Esterase (Negative) Urine RBC (0-2) /HPF Urine WBC (0-5) /HPF Ur Squamous Epith Cells (0-2) /HPF Urine Bacteria (None Seen) Hyaline Casts (0-2) /LPF Digoxin (0.8-2.0) ng/mL Urine Opiates Screen (Not Detect) Urine Fentanyl Screen (Not Detect) Ur Barbiturates Screen (Not Detect) Ur Phencyclidine Scrn (Not Detect) Ur Amphetamines Screen (Not Detect) U Benzodiazepines Scrn (Not Detect) Urine Cocaine Screen (Not Detect) U Marijuana (THC) Screen (Not Detect) Ethyl Alcohol mg/dL Influenza Type A (PCR) (Negative) Influenza Type B (PCR) (Negative) RSV RNA Qual (PCR) (Negative) SARS-CoV-2 RNA (RT-PCR) (Negative) 02/08/23 02/08/23 02/08/23 Range/Units 18:49 18:49 18:49 WBC (4.8-10.8) X10*3/uL RBC (4.60-5.80) X10*6/uL Hgb (14.0-18.0) g/dl Hct (42.0-52.0) % MCV (80.0-98.0) fL MCH (27.0-33.0) pg MCHC (31.0-36.0) g/dl RDW (11.0-16.0) % Plt Count (160-400) X10*3/uL MPV (9.4-12.4) fL Immature Gran % (Auto) (0.0-0.4) % Neut % (Auto) (45-73) % Lymph % (Auto) (20-40) % [place] % (Auto) (2-11) % Eos % (Auto) (0-4) % Baso % (Auto) (0-2) % Lymph # (Auto) (1.2-4.9) X10*3/uL [place] # (Auto) (0.1-1.2) X10*3/uL Eos # (Auto) (0.0-0.4) X10*3/uL Baso # (Auto) (0.0-0.2) X10*3/uL Abs Immat Gran (auto) (0.00-0.03) X10*3/uL Absolute Neuts (auto) (2.0-8.3) x10*3/uL Absolute Nucleated RBC (0.0-0.012) X10*3/uL Nucleated RBC % (auto) (0.0-0.2) /100WBC PT (11.1-13.3) SEC INR (0.9-1.1) APTT (26.0-36.4) SEC Sodium (135-145) mmol/L Potassium (3.3-5.1) mmol/L Chloride (96-108) mmol/L Carbon Dioxide (22-29) mmol/L Anion Gap (12-20) BUN (9-16) mg/dL Creatinine (0.5-1.4) mg/dL Estim Creat Clear Calc Estimated GFR Random Glucose (60-115) mg/dL Calcium (8.4-10.2) mg/dL Phosphorus 3.0 (2.7-4.5) mg/dL Magnesium (1.6-2.6) mg/dL Total Bilirubin (0.0-1.0) mg/dL AST (5-37) U/L ALT (0-40) U/L Alkaline Phosphatase (39-117) U/L Troponin I High Sens 45.1 H (<3.5-35.0) ng/L B-Natriuretic Peptide 2783 H (<100) pg/mL Total Protein (6.5-8.0) g/dL Albumin (3.5-5.0) g/dL Lipase (8-78) U/L Urine Color Urine Appearance Urine pH (5.0-9.0) Ur Specific [place] (1.005-1.025) Urine Protein (Neg-Trace) mg/dL Urine Glucose (UA) (Negative) mg/dL Urine Ketones (Negative) mg/dL Urine Blood (Negative) Urine Nitrite (Negative) Ur Leukocyte Esterase (Negative) Urine RBC (0-2) /HPF Urine WBC (0-5) /HPF Ur Squamous Epith Cells (0-2) /HPF Urine Bacteria (None Seen) Hyaline Casts (0-2) /LPF Digoxin (0.8-2.0) ng/mL Urine Opiates Screen (Not Detect) Urine Fentanyl Screen (Not Detect) Ur Barbiturates Screen (Not Detect) Ur Phencyclidine Scrn (Not Detect) Ur Amphetamines Screen (Not Detect) U Benzodiazepines Scrn (Not Detect) Urine Cocaine Screen (Not Detect) U Marijuana (THC) Screen (Not Detect) Ethyl Alcohol 174 mg/dL Influenza Type A (PCR) (Negative) Influenza Type B (PCR) (Negative) RSV RNA Qual (PCR) (Negative) SARS-CoV-2 RNA (RT-PCR) (Negative) 02/08/23 02/08/23 Range/Units 18:49 21:54 WBC (4.8-10.8) X10*3/uL RBC (4.60-5.80) X10*6/uL Hgb (14.0-18.0) g/dl Hct (42.0-52.0) % MCV (80.0-98.0) fL MCH (27.0-33.0) pg MCHC (31.0-36.0) g/dl RDW (11.0-16.0) % Plt Count (160-400) X10*3/uL MPV (9.4-12.4) fL Immature Gran % (Auto) (0.0-0.4) % Neut % (Auto) (45-73) % Lymph % (Auto) (20-40) % [place] % (Auto) (2-11) % Eos % (Auto) (0-4) % Baso % (Auto) (0-2) % Lymph # (Auto) (1.2-4.9) X10*3/uL [place] # (Auto) (0.1-1.2) X10*3/uL Eos # (Auto) (0.0-0.4) X10*3/uL Baso # (Auto) (0.0-0.2) X10*3/uL Abs Immat Gran (auto) (0.00-0.03) X10*3/uL Absolute Neuts (auto) (2.0-8.3) x10*3/uL Absolute Nucleated RBC (0.0-0.012) X10*3/uL Nucleated RBC % (auto) (0.0-0.2) /100WBC PT (11.1-13.3) SEC INR (0.9-1.1) APTT (26.0-36.4) SEC Sodium (135-145) mmol/L Potassium (3.3-5.1) mmol/L Chloride (96-108) mmol/L Carbon Dioxide (22-29) mmol/L Anion Gap (12-20) BUN (9-16) mg/dL Creatinine (0.5-1.4) mg/dL Estim Creat Clear Calc Estimated GFR Random Glucose (60-115) mg/dL Calcium (8.4-10.2) mg/dL Phosphorus (2.7-4.5) mg/dL Magnesium (1.6-2.6) mg/dL Total Bilirubin (0.0-1.0) mg/dL AST (5-37) U/L ALT (0-40) U/L Alkaline Phosphatase (39-117) U/L Troponin I High Sens 39.8 H (<3.5-35.0) ng/L B-Natriuretic Peptide (<100) pg/mL Total Protein (6.5-8.0) g/dL Albumin (3.5-5.0) g/dL Lipase (8-78) U/L Urine Color Urine Appearance Urine pH (5.0-9.0) Ur Specific [place] (1.005-1.025) Urine Protein (Neg-Trace) mg/dL Urine Glucose (UA) (Negative) mg/dL Urine Ketones (Negative) mg/dL Urine Blood (Negative) Urine Nitrite (Negative) Ur Leukocyte Esterase (Negative) Urine RBC (0-2) /HPF Urine WBC (0-5) /HPF Ur Squamous Epith Cells (0-2) /HPF Urine Bacteria (None Seen) Hyaline Casts (0-2) /LPF Digoxin < 0.2 L (0.8-2.0) ng/mL Urine Opiates Screen (Not Detect) Urine Fentanyl Screen (Not Detect) Ur Barbiturates Screen (Not Detect) Ur Phencyclidine Scrn (Not Detect) Ur Amphetamines Screen (Not Detect) U Benzodiazepines Scrn (Not Detect) Urine Cocaine Screen (Not Detect) U Marijuana (THC) Screen (Not Detect) Ethyl Alcohol mg/dL Influenza Type A (PCR) (Negative) Influenza Type B (PCR) (Negative) RSV RNA Qual (PCR) (Negative) SARS-CoV-2 RNA (RT-PCR) (Negative) Independent Interpretation I performed an independent interpretation of an: EKG (Atrial fibrillation with ventricular rate of 140. ST depressions in leads V4 and V6. No ST segment elevations ) Radiology Impression Discussion of test interpretation with radiology: I have reviewed the radiologist's reading. Radiologist Impression: Right upper lobe and right lower lobe consolidation Right upper lobe and left lower lobe pulmonary emboli Discharge Plan Discharge Clinical Impression: Atrial fibrillation with rapid ventricular response, Pulmonary embolism, Alcohol abuse, Acute hypokalemia Patient Disposition: Admitted As Inpatient
[2023-02-08 19:28] LABS: B Type Natriuretic Peptide 2783 pg/mL (<100)
[2023-02-08] MEDS: Potassium Chloride ER 20 MEQ TAB.ER.PRT 40 MEQ PO (19:31)
[2023-02-08] MEDS: dilTIAZem HCL 60 MG TABLET PO (19:31)
--- NOTE | 2023-02-08 19:34 | PHA.MEDREC ---
Pharmacy Consult ? Medication Reconciliation Pharmacy has completed the medication reconciliation. spoke with patient however he is unsure about his heart medications. Claim history suggests non-compliance and verified with [facility]. He says nothing has changed since last visit. Amiodarone has not been filled since last fall and Eliquis has not been filled since September. He thinks digoxin was discontinued months ago despite last corn picker in December. Also utilized discharge summary and previous med rec notes for support.
[2023-02-08 19:35] LABS: Influenza A PCR NEGATIVE (Negative); Influenza B PCR NEGATIVE (Negative); Resp Syncy Virus RNA Qual PCR NEGATIVE (Negative); SARS COV2 PCR INHOUSE NEGATIVE (Negative)
[2023-02-08 19:35] LABS: Digoxin < 0.2 ng/mL (0.8-2.0)
[2023-02-08 20:29] VITALS: BP 126/81; PULSE 126; RESP 24; TEMP 36.6; O2SAT 100
--- NOTE | 2023-02-08 20:30 | MHC.EDTECH ---
This tech assumed care of pt at 1900, vitals were taken and pt's heart rate is elevated at 126 provider is aware. Patient urinated 650cc in urinal. Call tillman within reach
[2023-02-08] MEDS: Metoprolol Tartrate 5 MG/5 ML VIAL IVPUSH (20:39)
[2023-02-08 20:44] LABS: Amphetamine Screen Urine Not Detected (Not Detect); Barbiturates, Urine POSITIVE (Not Detect); Benzodiazepines Screen Urine Not Detected (Not Detect); Cannabinoid Screen Urine Not Detected (Not Detect); Cocaine Screen Urine Not Detected (Not Detect); Fentanyl, urine Not Detected (Not Detect); Opiate Screen Urine Not Detected (Not Detect); Phencyclidine Screen Urine Not Detected (Not Detect)
[2023-02-08 21:37] VITALS: BP 103/72; PULSE 109; RESP 22; TEMP 36.7; O2SAT 99
[2023-02-08] MEDS: iohexoL 350 MG/ML 100 ML INFUS..BTL IV (22:14)
[2023-02-08 22:23] LABS: Troponin-I High Sensitivity 39.8 ng/L (<3.5-35.0)
--- NOTE | 2023-02-08 23:51 | MHC.EDTECH ---
Belongings list completed.
[2023-02-08 23:57] VITALS: BP 92/62; PULSE 105; RESP 22; O2SAT 100
[2023-02-09] VITALS (8 sets, daily range): BP systolic 96–108; BP diastolic 75–87; PULSE 77–115; RESP 17–24; TEMP 36.3–37.2; O2SAT 97–100; BMI 32.1
--- NOTE | 2023-02-09 | PM.IMHP ---
History of Present Illness Date of Service: 02/09/23 Chief Complaint: Shortness of breath 57-year-old male with past medical history of AFib, cardiomyopathy, chronic heart failure with reduced ejection fraction, hypertension, alcohol abuse, hypertension, comes into the hospital with complaints of dizziness, and shortness of breath. Patient reports that he started having shortness of breath for several months but worsened today. He was standing at work when all of a sudden he started feeling lightheaded and had increased shortness of breath. He denies losing consciousness, reports lower extremity swelling for the past several weeks to 1 month, has orthopnea, PND, denies any chest pain, no palpitations, no abdominal pain nausea or vomiting, no diarrhea constipation, no urinary symptoms. No numbness tingling or weakness. No headache or change in vision. Of note patient does state that he misses his Eliquis and his other medications frequently as he forgets On arrival to the ED patient was found to have a heart rate in the 140s AFib with RVR, satting 92% on 2 L of oxygen His labs are significant for WBC count of 9.1, hemoglobin of 12.5, hematocrit 36.8, INR 1.2, sodium 133, potassium 2.9, chloride 93, lactic acid of 2.3, AST of 422, ALT of to 28, alk-phos of 328, troponin of 45, BNP of 2783, digoxin level less than 0.2, UA positive for barbiturates, Reports drinks alcohol daily, last drink was 2 days ago. Denies history of withdrawals Lower extremity venous duplex negative for DVT Chest CT angiogram shows small pulmonary emboli in the right upper lobe and left lower lobe, areas of consolidation right upper lobe and right lower lobe, some ascites, Abdominal pelvic CT shows bilateral lower lobe atelectasis versus small infiltrate, enlarged fatty liver, Patient patient given multiple doses of rate control medications with heart rate improving, started on Lasix and will be admitted for further management Review of Systems Review of Systems: Yes all other systems are reviewed and are negative [facility] Medical History Alcohol dependence with withdrawal Alcoholic hepatitis Atrial fibrillation with rapid ventricular response Cardiomyopathy Chronic HFrEF (heart failure with reduced ejection fraction) HTN (hypertension) Family History Father CAD (coronary artery disease) Mother Atrial fibrillation Surgical History No pertinent past surgical history Social History Household Members: None Housing: Apartment Do you presently have visiting nurse or other home services: No Unable to assess alcohol history related to: Unable to respond Alcohol intake: current Alcohol intake frequency: a few times a week Alcohol type: hard liquor Patient Tobacco Use Status: Never used Tobacco Smoked in Last 30 Days: No Patient Interested in Nicotine Replacement: No Patient Given Instructions on How to Stop Smoking: No Use of substances other than those prescribed or required for medical reasons: No Currently Displaying Signs/Symptoms of Drug Intoxication Withdrawal: No Any prior treatment program specific to substance use: No Have you been hit, kicked, punched, or otherwise hurt by someone within the past year? If so, by whom?: No Do you feel safe in your current relationship?: No Is there a partner from a previous relationship who is making you feel unsafe now?: No Are you made to feel afraid or neglected: No Advance Directives: No Advance Directives Information Provided: No Do you have thoughts of harming others: None Do you have a plan to hurt others: No Plan Recently lost weight without trying: Unsure Eating poorly because of decreased appetite: Yes Nutrition Risks: No Nutritional Risk Poor oral hygiene: No service: No Current occupational status: unemployed Meds Allergies Allergy/AdvReac Type Severity Reaction Status Date / Time No Known Allergies Allergy Verified 02/08/23 18:23 [No Known Allergies*] Active Medications: Current Medications Pharmacy Consult (Consult Rx Perform Med Rec) 1 each MISCELLANE ONCE PRN PRN Reason: Consult order Home Medications Medication Instructions Recorded Confirmed Last Taken Type folic acid 1 mg tablet 1 mg PO DAILY 09/16/22 02/08/23 10/06/22 History losartan 25 mg tablet 25 mg PO Q OTHER DAY 09/16/22 02/08/23 10/06/22 History potassium chloride 10 mEq 10 meq PO DAILY 09/16/22 02/08/23 10/06/22 History tablet,extended release spironolactone 25 mg tablet 25 mg PO DAILY 09/16/22 02/08/23 10/06/22 History thiamine mononitrate (vit B1) 100 100 mg PO DAILY 09/16/22 02/08/23 10/06/22 History mg tablet (Vitamin B-1 (mononitrate)) digoxin 125 mcg (0.125 mg) tablet 125 mcg PO DAILY 12/13/22 02/08/23 Unknown History metoprolol succinate 50 mg 50 mg PO DAILY 12/13/22 02/08/23 Unknown History tablet,extended release 24 hr Physical Exam Vital Signs and Narrative: Vital Signs: Last Vital Signs Temp 98.1 F 02/08/23 21:37 Pulse 109 H 02/08/23 21:37 Resp 22 H 02/08/23 21:37 BP 103/72 02/08/23 21:37 Pulse Ox 99 02/08/23 21:37 O2 Del Method Nasal Cannula 02/08/23 21:37 O2 Flow Rate 2 02/08/23 21:37 Oxygen Flow Rate 2 02/08/23 18:12 BMI result Body Mass Index 28.7 Const: Other: Slightly anxious appearing General: cooperative and no acute distress Orientation/consciousness: patient oriented x3 Eyes: General: appearance normal, both eyes and all related structures Pupils: Equal, round and reactive pupils present Resp: Effort & Inspection: normal respiratory effort Cardio: Other: Irregular rhythm, tachycardic GI: Other: Abdomen is soft, nontender, no rebound or guarding Palpation (GI): Soft to palpation Auscultation: normal bowel sounds Skin: General skin exam: no rashes or lesions noted Neuro: General: patient oriented x3 Cranial nerves: Yes Equal, round and reactive pupils present Cognition (Neuro): normal cognition Extrem: Other: 3+ pedal edema Results Labs 02/08/23 18:49 02/08/23 18:49 Labs: Laboratory Results - last 24 hr 02/08/23 02/08/23 02/08/23 18:45 18:45 18:45 MCV MCH MCHC RDW Plt Count MPV Immature Gran % (Auto) Neut % (Auto) Lymph % (Auto) [place] % (Auto) Eos % (Auto) Baso % (Auto) Lymph # (Auto) [place] # (Auto) Eos # (Auto) Baso # (Auto) Abs Immat Gran (auto) Absolute Neuts (auto) Absolute Nucleated RBC Nucleated RBC % (auto) PT INR APTT Anion Gap Estim Creat Clear Calc Estimated GFR Random Glucose Calcium Phosphorus Magnesium Total Bilirubin AST ALT Alkaline Phosphatase B-Natriuretic Peptide Total Protein Albumin Lipase Urine Color Dark Yellow Urine Appearance Clear Urine pH 6.0 Ur Specific [place] 1.015 Urine Protein 100 (2+) H Urine Glucose (UA) 250 H Urine Ketones Negative Urine Blood Negative Urine Nitrite Negative Ur Leukocyte Esterase Negative Urine RBC 0-2 Urine WBC 0-5 Ur Squamous Epith Cells 0-2 Urine Bacteria None Seen Hyaline Casts 0-2 Digoxin Urine Opiates Screen Not Detected Urine Fentanyl Screen Not Detected Ur Barbiturates Screen POSITIVE H Ur Phencyclidine Scrn Not Detected Ur Amphetamines Screen Not Detected U Benzodiazepines Scrn Not Detected Urine Cocaine Screen Not Detected U Marijuana (THC) Screen Not Detected Ethyl Alcohol Influenza Type A (PCR) NEGATIVE Influenza Type B (PCR) NEGATIVE RSV RNA Qual (PCR) NEGATIVE SARS-CoV-2 RNA (RT-PCR) NEGATIVE 02/08/23 02/08/23 02/08/23 18:48 18:49 18:49 MCV 107.9 H MCH 36.7 H MCHC 34.0 RDW 20.8 H Plt Count 220 D MPV 11.0 Immature Gran % (Auto) 1.9 H Neut % (Auto) 76.2 H Lymph % (Auto) 11.3 L [place] % (Auto) 10.1 Eos % (Auto) 0.1 Baso % (Auto) 0.4 Lymph # (Auto) 1.0 L [place] # (Auto) 0.9 Eos # (Auto) 0.0 Baso # (Auto) 0.0 Abs Immat Gran (auto) 0.17 H Absolute Neuts (auto) 7.0 Absolute Nucleated RBC 0.000 Nucleated RBC % (auto) 0.0 PT 14.8 H INR 1.2 H APTT 27.7 Anion Gap 16 Estim Creat Clear Calc 71.0 Estimated GFR 56 Random Glucose 149 H Calcium 8.6 D Phosphorus Magnesium 1.8 Total Bilirubin 3.2 H AST 422 H ALT 228 H Alkaline Phosphatase 328 H B-Natriuretic Peptide Total Protein 7.0 Albumin 3.8 Lipase 17 Urine Color Urine Appearance Urine pH Ur Specific [place] Urine Protein Urine Glucose (UA) Urine Ketones Urine Blood Urine Nitrite Ur Leukocyte Esterase Urine RBC Urine WBC Ur Squamous Epith Cells Urine Bacteria Hyaline Casts Digoxin Urine Opiates Screen Urine Fentanyl Screen Ur Barbiturates Screen Ur Phencyclidine Scrn Ur Amphetamines Screen U Benzodiazepines Scrn Urine Cocaine Screen U Marijuana (THC) Screen Ethyl Alcohol Influenza Type A (PCR) Influenza Type B (PCR) RSV RNA Qual (PCR) SARS-CoV-2 RNA (RT-PCR) 02/08/23 02/08/23 02/08/23 18:49 18:49 18:49 MCV MCH MCHC RDW Plt Count MPV Immature Gran % (Auto) Neut % (Auto) Lymph % (Auto) [place] % (Auto) Eos % (Auto) Baso % (Auto) Lymph # (Auto) [place] # (Auto) Eos # (Auto) Baso # (Auto) Abs Immat Gran (auto) Absolute Neuts (auto) Absolute Nucleated RBC Nucleated RBC % (auto) PT INR APTT Anion Gap Estim Creat Clear Calc Estimated GFR Random Glucose Calcium Phosphorus 3.0 Magnesium Total Bilirubin AST ALT Alkaline Phosphatase B-Natriuretic Peptide 2783 H Total Protein Albumin Lipase Urine Color Urine Appearance Urine pH Ur Specific [place] Urine Protein Urine Glucose (UA) Urine Ketones Urine Blood Urine Nitrite Ur Leukocyte Esterase Urine RBC Urine WBC Ur Squamous Epith Cells Urine Bacteria Hyaline Casts Digoxin < 0.2 L Urine Opiates Screen Urine Fentanyl Screen Ur Barbiturates Screen Ur Phencyclidine Scrn Ur Amphetamines Screen U Benzodiazepines Scrn Urine Cocaine Screen U Marijuana (THC) Screen Ethyl Alcohol 174 Influenza Type A (PCR) Influenza Type B (PCR) RSV RNA Qual (PCR) SARS-CoV-2 RNA (RT-PCR) Imaging Radiologist's Impressions: Impressions Chest X-Ray 02/08/23 18:38 IMPRESSION: Stable enlargement of the cardiac silhouette. Atelectasis or small infiltrate in the right lateral mid lung. Abdomen/Pelvis CT 02/08/23 19:59 IMPRESSION: New bilateral lower lobe atelectasis or small infiltrates. . New wall thickening of the second and third portions of the duodenum and significant stranding of the surrounding fat. Question wall thickening of the cecum and proximal right colon as well. Increasing small amount of ascites. Diverticulosis. No evidence of diverticulitis. Enlarged fatty liver. Known liver lesion not well appreciated without IV contrast. New fluid around the gallbladder. The gallbladder is normal in size and no gallstones are seen by CT. Evolving right renal infarct. Fleischner guidelines were followed. Chest CTA 02/08/23 22:20 IMPRESSION: 1. Small pulmonary emboli in the right upper lobe and left lower lobe. 2. Areas of consolidation in the right upper lobe and right lower lobe. 3. Tiny amount of ascites. 4. Other incidental findings as described above. VTE: positive. Assessment and Plan (1) Pulmonary embolism: Status: Acute (2) Atrial fibrillation with rapid ventricular response: Status: Acute (3) Heart failure, systolic, with acute decompensation: Status: Acute (4) Acute hypokalemia: Status: Acute (5) Alcohol abuse: Status: Acute Plan 57-year-old male with past medical history of heart failure with reduced ejection fraction AFib, comes into the hospital shortness of breath found to have acute PE # bilateral pulmonary emboli - appears to be acute - with hypoxia - will treat with Lovenox full dose - patient noncompliant with Eliquis, due to forgetfulness -discussed extensively the need to be compliant with his anticoagulants otherwise he runs a high risk of recurrent PE as well as stroke # AFib with RVR - secondary to CHF exacerbation as well as PE - will resume his home digoxin amiodarone and metoprolol - monitor BP closely - admit to telemetry # acute CHF exacerbation - has elevated BNP, orthopnea, PND, lower extremity edema - likely secondary to AFib - will treat with IV Lasix - strict I&O, low-sodium diet, daily weight - monitor respiratory status # acute hypokalemia - repleted - follow BMP # alcohol abuse with potential for withdrawal - started on phenobarb protocol - thiamine and folic acid supplement DVT prophylaxis: Lovenox full dose Given patient's need for further management of AFib with RVR, PE, as well as CHF exacerbation requiring IV Lasix patient require minimum 2 nights inpatient hospital stay for further management and monitoring Time Spent With Patient Time: Total time managing care of this patient today ____ minutes. Quality Stroke Does the patient have a stroke diagnosis?: No VTE Prior VTE?: No VTE Risk Level:: Medical - moderate - high VTE Device Contraindication: Treatment Not Indicated VTE Drug Contraindication: N/A - Med Ordered
[2023-02-09 00:15] LABS: Lactic Acid 2.3 mmol/L (0.5-2.0)
[2023-02-09] MEDS: 0.9 % Sodium Chloride Flush 3 ML SYRINGE IVFLUSH ×2 (01:26→08:07)
[2023-02-09] MEDS: Enoxaparin Sodium 100 MG/ML SYRINGE 90 MG SUBCUT ×2 (01:26→12:45)
[2023-02-09] MEDS: Metoprolol Succinate ER 50 MG TAB.ER.24H PO (01:27)
[2023-02-09] MEDS: Digoxin 0.125 MG TABLET PO ×2 (01:27→08:08)
[2023-02-09] MEDS: PHENobarbitaL sodium 130 MG/ML IM ONCE 286 MG IM (01:28)
--- NOTE | 2023-02-09 01:35 | PC.NURSE ---
Addendum entered by Kirstie Green RN 02/09/23 01:52: Report given to Cherie on [facility] Original Note: Attempt to call report for pt to transfer to floor. Awaiting call back from nurse.
[2023-02-09 01:57] LABS: Reflex Lactate? Lactic Acid Added
[2023-02-09 02:47] LABS: ~Lactic Acid-LAB USE ONLY 2.5 mmol/L (0.5-2.0)
[2023-02-09 04:20] LABS: Reflex Lactate? 2 Y
[2023-02-09] MEDS: PHENobarbitaL sodium 130 MG/ML VIAL IM Q3Hx2 221 MG IM ×2 (04:40→06:57)
[2023-02-09] MEDS: cefTRIAXone sodium 1 GM in 0.9 % Sodium Chloride 50 ML IV (04:41)
[2023-02-09] MEDS: Azithromycin 500 MG in 0.9 % Sodium Chloride 250 ML 125 MG IV (05:22)
[2023-02-09 07:27] LABS: MANUAL DIFF FLAG NO
[2023-02-09 07:31] LABS: Basophils Absolute Auto 0.1 X10*3/uL (0.0-0.2); Basophils Percent Auto 0.6 % (0-2); Eosinophils Percent Auto 0.4 % (0-4); Hematocrit 34.9 % (42.0-52.0); Hemoglobin 11.8 g/dl (14.0-18.0); Imm Gran Abs Auto 0.07 X10*3/uL (0.00-0.03); Imm Gran Pct Auto 0.8 % (0.0-0.4); Lymphocytes Absolute Auto 1.4 X10*3/uL (1.2-4.9); Lymphocytes Percent Auto 16.3 % (20-40); Mean Corpuscular HGB Conc 33.8 g/dl (31.0-36.0); Mean Corpuscular Hemoglobin 36.9 pg (27.0-33.0); Mean Corpuscular Volume 109.1 fL (80.0-98.0); Mean Platelet Volume 11.1 fL (9.4-12.4); Monocytes Absolute Auto 0.9 X10*3/uL (0.1-1.2); NRBC Pct Auto 0.2 /100WBC (0.0-0.2); Neutrophils Absolute Auto 6.1 x10*3/uL (2.0-8.3); Neutrophils Percent Auto 70.9 % (45-73); Platelet Count 179 X10*3/uL (160-400); White Blood Count 8.5 X10*3/uL (4.8-10.8)
[2023-02-09 07:50] LABS: Alanine Aminotransferase 186 U/L (0-40); Albumin Level 3.4 g/dL (3.5-5.0); Alkaline Phosphatase 268 U/L (39-117); Anion Gap 17 (12-20); Aspartate Amino Transferase 245 U/L (5-37); Bilirubin Total 3.4 mg/dL (0.0-1.0); Blood Urea Nitrogen 21 mg/dL (9-16); Calcium 8.3 mg/dL (8.4-10.2); Carbon Dioxide 23 mmol/L (22-29); Chloride 94 mmol/L (96-108); Creatinine Clr Calc Pharmacy 88.9; Estimated Glomerular Filt Rate > 60; Glucose Random 139 mg/dL (60-115); Potassium 3.3 mmol/L (3.3-5.1); Sodium 131 mmol/L (135-145); Total Protein 6.3 g/dL (6.5-8.0)
[2023-02-09] MEDS: Folic Acid 1 MG TABLET PO (08:08)
[2023-02-09] MEDS: Potassium Chloride ER 10 MEQ TABLET.ER PO (08:08)
[2023-02-09] MEDS: Amiodarone HCL 200 MG TABLET PO (08:08)
[2023-02-09] MEDS: Thiamine HCL 100 MG TABLET PO (08:10)
[2023-02-09 08:55] LABS: B Type Natriuretic Peptide 2758 pg/mL (<100)
--- NOTE | 2023-02-09 09:35 | MHC.CM.PN ---
Addendum entered by Nisha Barnhart RN 02/09/23 12:52: HCP COMPLETED, PT RECEIVED EDUCATIONAL HANDOUT, ORIGINAL AND 2 COPIES, COPY UPLOADED TO [facility] AND PLACED IN CHART. Original Note: EMR REVIEWED, PT ADMITTED W/CHF, PE AND AFIB W/RVR, CM MET W/PT WHO REPORTS HE LIVES ALONE, DRIVES, WORKS AT [employer], DENIES USE OF DME/SERVICES, CM ATTEMPTED TO DISCUSS ETOH TX HOWEVER PT DENIES HE IS A DAILY DRINKER, DRINKS ONLY WEDNESDAY OR SATURDAYS AND HE WAS AT WORK WHEN HIS ISSUES STARTED PRIOR TO ADMIT, PT DECLINES NEED FOR RECOVERY TEAM INTERVENTION. PT VERIFIES PCP IS AT [facility] HOWEVER IT IS A NEW PCP AND DOES NOT KNOW THE NAME, TASK SENT TO CM OFFICE, PT ALSO REPORTS HE WILL COMPLETE A HCP NAMING HIS SISTER JIMENEZ PLATA [phone] HIS [facility] AND NO ALTERNATE CHOSEN AT THIS TIME. PT ALSO REQUESTING TRANSPORT TO CAR AT [facility] ONCE MEDICALLY CLEARED.
--- NOTE | 2023-02-09 11:21 | PM.CNPUL ---
History of Present Illness History of Present Illness Consult date: 02/09/23 Requesting physician: Keon Bennett Chief complaint: CHF, PE, A/fib w RVR Narrative: 57-year-old gentleman with underlying severe systolic congestive heart failure with EF of 10-15% likely secondary to prior alcohol abuse, AFib on anticoagulation with questionable compliance admitted on 02/09/2023 with subacute dyspnea, orthopnea, and worsening lower extremity edema. CT angio chest demonstrated small emboli in the right upper and left lower lobes pulmonary evaluation was requested. Patient complains of orthopnea, dyspnea exertion, paroxysmal nocturnal dyspnea, and worsening lower extremity edema. Review of Systems Constitutional: Constitutional: Denies daytime sleepiness, Denies excessive sweating, Denies fatigue, Denies fever(s), Denies lethargy, Denies malaise, Denies night sweats, Denies snoring and Denies weight loss Eyes: Eyes: Denies blurry vision and Denies itchy eyes ENT: Denies nasal congestion, Denies post nasal drip, Denies sinus pain, Denies sinus pressure and Denies other ( Thrush) Cardiovascular: Cardiovascular: Denies chest pain, Reports pedal edema, Denies dyspnea, Reports dyspnea on exertion, Reports orthopnea and Reports paroxysmal nocturnal dyspnea Respiratory: Respiratory: Denies cough, Denies hemoptysis, Denies excessive phlegm production, Denies dyspnea, Reports dyspnea on exertion, Denies snoring and Denies wheezing Gastrointestinal: Gastrointestinal: Denies abdominal pain and Denies heartburn Musculoskeletal: Musculoskeletal: Denies myalgias, Denies arthralgias and Denies joint swelling Integumentary/Breasts: Skin/Breast: Denies rash Neurologic: Denies memory loss and Denies seizure-like activity Psychiatric: Psychiatric: Denies abnormal sleep pattern, Denies anxiety and Denies memory loss Endocrine: Endocrine: Denies excessive sweating, Denies fatigue and Denies heat intolerance Hematologic/Lymphatic: Hematologic/Lymphatic: Denies easy bruising Allergic/Immunologic: Allergic/Immunologic: Denies itchy eyes, Denies seasonal rhinorrhea and Denies wheezing PMFSH Past Medical History Medical History Alcohol dependence with withdrawal Alcoholic hepatitis Atrial fibrillation with rapid ventricular response Cardiomyopathy Chronic HFrEF (heart failure with reduced ejection fraction) HTN (hypertension) Family History Family History Father CAD (coronary artery disease) Mother Atrial fibrillation Surgical History Surgical History No pertinent past surgical history Social History Social History Household Members: None Housing: Apartment Do you presently have visiting nurse or other home services: No Unable to assess alcohol history related to: Unable to respond Alcohol intake: current Alcohol intake frequency: a few times a week Alcohol type: hard liquor Patient Tobacco Use Status: Never used Tobacco Smoked in Last 30 Days: No Patient Interested in Nicotine Replacement: No Patient Given Instructions on How to Stop Smoking: No Use of substances other than those prescribed or required for medical reasons: No Currently Displaying Signs/Symptoms of Drug Intoxication Withdrawal: No Any prior treatment program specific to substance use: No Have you been hit, kicked, punched, or otherwise hurt by someone within the past year? If so, by whom?: No Do you feel safe in your current relationship?: No Is there a partner from a previous relationship who is making you feel unsafe now?: No Are you made to feel afraid or neglected: No Advance Directives: No Advance Directives Information Provided: No Do you have thoughts of harming others: None Do you have a plan to hurt others: No Plan Recently lost weight without trying: Unsure Eating poorly because of decreased appetite: Yes Nutrition Risks: No Nutritional Risk Poor oral hygiene: No service: No Current occupational status: unemployed Meds Allergies Allergy/AdvReac Type Severity Reaction Status Date / Time No Known Allergies Allergy Verified 02/08/23 18:23 [No Known Allergies*] Active Medications: Current Medications Acetaminophen (Acetaminophen 325 Mg Tablet) 650 mg PO Q6H PRN PRN Reason: Pain, Mild (Pain Scale 1-3) Amiodarone HCl (Amiodarone Hcl 200 Mg Tablet) 200 mg PO DAILY [facility] Last Admin: 02/09/23 09:41 Dose: Not Given Digoxin (Digoxin 0.125 Mg Tablet) 0.125 mg PO DAILY [facility] Last Admin: 02/09/23 08:08 Dose: 0.125 mg Docusate Sodium (Docusate Sodium 100 Mg Capsule) 100 mg PO DAILY PRN PRN Reason: Constipation Enoxaparin Sodium (Enoxaparin Sodium 100 Mg/Ml Syringe) 90 mg 1 mg/kg (90 mg) SUBCUT Q12H [facility] Folic Acid (Folic Acid 1 Mg Tablet) 1 mg PO DAILY [facility] Last Admin: 02/09/23 08:08 Dose: 1 mg Furosemide (Furosemide 40 Mg/4 Ml Vial) 40 mg IVPUSH BIDWM [facility]; Protocol Last Admin: 02/09/23 08:08 Dose: Not Given Ceftriaxone Sodium 1 gm/ (Sodium Chloride) 50 mls @ 100 mls/hr IV 0600 [facility] Last Infusion: 02/09/23 05:24 Dose: Infused Azithromycin 500 mg/ Sodium (Chloride) 250 mls @ 125 mls/hr IV 0600 [facility] Last Infusion: 02/09/23 07:59 Dose: Infused Metoprolol Succinate (Metoprolol Succinate Er 50 Mg Tab.Er.24h) 50 mg PO DAILY [facility]; Protocol Last Admin: 02/09/23 08:08 Dose: Not Given Ondansetron HCl (Ondansetron Hcl 4 Mg/2 Ml Vial) 4 mg IVPUSH Q8H PRN PRN Reason: Nausea and Vomiting Pharmacy Consult (Consult Rx Perform Med Rec) 1 each MISCELLANE ONCE PRN PRN Reason: Consult order Pharmacy Consult (Consult Rx Etoh Phenob Im/Po) 1 each MISCELLANE ONCE PRN; Protocol PRN Reason: Consult order Phenobarbital (Phenobarbital 15 Mg Tablet) 45 mg PO BID [facility]; Protocol Stop: 02/11/23 21:01 Phenobarbital (Phenobarbital 15 Mg Tablet) 15 mg PO BID [facility]; Protocol Stop: 02/13/23 21:01 Phenobarbital (Phenobarbital 15 Mg Tablet) 15 mg PO DAILY [facility]; Protocol Stop: 02/15/23 09:01 Potassium Chloride (Potassium Chloride Er 10 Meq Tablet.Er) 10 meq PO DAILY [facility] Last Admin: 02/09/23 08:08 Dose: 10 meq Sodium Chloride (0.9 % Sodium Chloride Flush 3 Ml Syringe) 3 ml IVFLUSH QSHIFT [facility] Last Admin: 02/09/23 08:07 Dose: 3 ml Spironolactone (Spironolactone 25 Mg Tablet) 25 mg PO DAILY [facility]; Protocol Last Admin: 02/09/23 08:08 Dose: Not Given Thiamine HCl (Thiamine Hcl 100 Mg Tablet) 100 mg PO DAILY [facility] Last Admin: 02/09/23 08:10 Dose: 100 mg Home Medications Medication Instructions Recorded Confirmed Last Taken Type folic acid 1 mg tablet 1 mg PO DAILY 09/16/22 02/08/23 10/06/22 History losartan 25 mg tablet 25 mg PO Q OTHER DAY 09/16/22 02/08/23 10/06/22 History potassium chloride 10 mEq 10 meq PO DAILY 09/16/22 02/08/23 10/06/22 History tablet,extended release spironolactone 25 mg tablet 25 mg PO DAILY 09/16/22 02/08/23 10/06/22 History thiamine mononitrate (vit B1) 100 100 mg PO DAILY 09/16/22 02/08/23 10/06/22 History mg tablet (Vitamin B-1 (mononitrate)) digoxin 125 mcg (0.125 mg) tablet 125 mcg PO DAILY 12/13/22 02/08/23 Unknown History metoprolol succinate 50 mg 50 mg PO DAILY 12/13/22 02/08/23 Unknown History tablet,extended release 24 hr Physical Exam Vital Signs: Vital Signs: Last Vital Signs Temp 98.6 F 02/09/23 11:15 Pulse 101 H 02/09/23 11:15 Resp 20 02/09/23 11:15 BP 99/77 02/09/23 11:15 Pulse Ox 98 02/09/23 11:15 O2 Del Method Room Air 02/09/23 11:15 O2 Flow Rate 2 02/09/23 03:05 Oxygen Flow Rate 2 02/08/23 18:12 BMI result Body Mass Index 32.1 Const: General: no acute distress and alert Nutritional Appearance: not obese Orientation/consciousness: Other orientation findings ( oriented) HEENT: Head: Yes atraumatic Eyes: General: appearance normal, both eyes and all related structures Sclerae: sclerae normal EOM: EOMs intact bilaterally Neck: Neck: Yes supple Lymphatic: no lymphadenopathy noted Resp: Effort & Inspection: normal respiratory effort and no use of accessory muscles Auscultation: crackles ( bibasilar) Cardio: Rate: tachycardic Rhythm: regular rhythm Heart sounds: no gallops, no murmurs and no rubs Skin: General skin exam: other ( warm) Extrem: General: No clubbing, No cyanosis and Yes edema ( 2+ bilateral) Results Laboratory Findings 02/09/23 07:20 02/09/23 07:20 ABG, PT/INR, D-dimer: PT/INR, D-dimer PT 14.8 SEC (11.1-13.3) H 02/08/23 18:48 INR 1.2 (0.9-1.1) H 02/08/23 18:48 Abnormal lab findings: Abnormal Labs 02/08/23 02/08/23 02/08/23 18:45 18:45 18:48 RBC Hgb Hct MCV MCH RDW Immature Gran % (Auto) Neut % (Auto) Lymph % (Auto) Lymph # (Auto) Abs Immat Gran (auto) Absolute Nucleated RBC PT 14.8 H INR 1.2 H Sodium Potassium Chloride BUN Random Glucose Lactic Acid Lactic Acid F/U @ 2Hr Lactic Acid F/U @ 4Hr Calcium Total Bilirubin AST ALT Alkaline Phosphatase Troponin I High Sens B-Natriuretic Peptide Total Protein Albumin Urine Protein 100 (2+) H Urine Glucose (UA) 250 H Digoxin Ur Barbiturates Screen POSITIVE H 02/08/23 02/08/23 02/08/23 18:49 18:49 18:49 RBC 3.41 L Hgb 12.5 L Hct 36.8 L MCV 107.9 H MCH 36.7 H RDW 20.8 H Immature Gran % (Auto) 1.9 H Neut % (Auto) 76.2 H Lymph % (Auto) 11.3 L Lymph # (Auto) 1.0 L Abs Immat Gran (auto) 0.17 H Absolute Nucleated RBC PT INR Sodium 133 L Potassium 2.9 L D Chloride 93 L BUN 22 H Random Glucose 149 H Lactic Acid Lactic Acid F/U @ 2Hr Lactic Acid F/U @ 4Hr Calcium Total Bilirubin 3.2 H AST 422 H ALT 228 H Alkaline Phosphatase 328 H Troponin I High Sens 45.1 H B-Natriuretic Peptide Total Protein Albumin Urine Protein Urine Glucose (UA) Digoxin Ur Barbiturates Screen 02/08/23 02/08/23 02/08/23 18:49 18:49 21:54 RBC Hgb Hct MCV MCH RDW Immature Gran % (Auto) Neut % (Auto) Lymph % (Auto) Lymph # (Auto) Abs Immat Gran (auto) Absolute Nucleated RBC PT INR Sodium Potassium Chloride BUN Random Glucose Lactic Acid Lactic Acid F/U @ 2Hr Lactic Acid F/U @ 4Hr Calcium Total Bilirubin AST ALT Alkaline Phosphatase Troponin I High Sens 39.8 H B-Natriuretic Peptide 2783 H Total Protein Albumin Urine Protein Urine Glucose (UA) Digoxin < 0.2 L Ur Barbiturates Screen 02/08/23 02/09/23 02/09/23 23:53 02:16 07:20 RBC 3.20 L Hgb 11.8 L Hct 34.9 L MCV 109.1 H MCH 36.9 H RDW 21.0 H Immature Gran % (Auto) 0.8 H Neut % (Auto) Lymph % (Auto) 16.3 L Lymph # (Auto) Abs Immat Gran (auto) 0.07 H Absolute Nucleated RBC 0.020 H PT INR Sodium Potassium Chloride BUN Random Glucose Lactic Acid 2.3 H* Lactic Acid F/U @ 2Hr 2.5 H* Lactic Acid F/U @ 4Hr Calcium Total Bilirubin AST ALT Alkaline Phosphatase Troponin I High Sens B-Natriuretic Peptide Total Protein Albumin Urine Protein Urine Glucose (UA) Digoxin Ur Barbiturates Screen 02/09/23 02/09/23 02/09/23 07:20 07:20 07:20 RBC Hgb Hct MCV MCH RDW Immature Gran % (Auto) Neut % (Auto) Lymph % (Auto) Lymph # (Auto) Abs Immat Gran (auto) Absolute Nucleated RBC PT INR Sodium 131 L Potassium Chloride 94 L BUN 21 H Random Glucose 139 H Lactic Acid Lactic Acid F/U @ 2Hr Lactic Acid F/U @ 4Hr 3.0 H* Calcium 8.3 L Total Bilirubin 3.4 H AST 245 H ALT 186 H Alkaline Phosphatase 268 H Troponin I High Sens B-Natriuretic Peptide 2758 H Total Protein 6.3 L Albumin 3.4 L Urine Protein Urine Glucose (UA) Digoxin Ur Barbiturates Screen Assessment and Plan (1) Pulmonary embolism: Status: Acute (2) Heart failure, systolic, with acute decompensation: Status: Acute (3) Noncompliance with medications: Status: Acute (4) Atrial fibrillation with rapid ventricular response: Status: Acute Plan Impression: 57-year-old gentleman with underlying severe systolic heart failure and AFib and poor compliance with medication admitted with acute exacerbation of underlying chronic systolic heart failure with CT angio chest demonstrating small right upper lobe in left lower lobe pulmonary emboli. At this time patient appears to be in acute exacerbation of underlying congestive heart failure now with small bilateral pulmonary emboli being of little clinical significance. Recommendations: Agree with cardiology evaluation for advanced heart failure. Agree with resumption of anticoagulation. Time Spent With Patient Time: Total time managing care of this patient today ____ minutes. Procedures Date of Service Date of Service: 02/09/23
[2023-02-09] MEDS: Albumin Human 25 % 50 ML 100 ML IV (11:36)
[2023-02-09] MEDS: Furosemide 200 MG in 0.9 % Sodium Chloride 80 ML IVCONT (12:40)
--- NOTE | 2023-02-09 14:04 | P.CONCA_ITS ---
History of Present Illness History of Present Illness Date of Service: 02/09/23 Requesting physician: Keon Bennett Chief complaint: CHF, PE, A/fib w RVR Narrative: 57-year-old male with alcoholism and cardiomyopathy with reported noncompliance presenting with feeling generally unwell and has been diagnosed with pulmonary embolism. He was complaining of shortness of breath. No chest pain. Clinically appears to be volume overloaded. He also has AFib with RVR. It appears he also received IV diltiazem on admission. He appears significantly overloaded right now. He has been drinking up to few drinks of weak and continues to drink vodka. He is saying he has cut back. Previously has been admitted with AFib with RVR and congestive heart failure in the setting of alcohol use. He is being started on Lasix drip at this point. He is on anticoagulation for PE. [facility] Past Medical History Medical History Alcohol dependence with withdrawal Alcoholic hepatitis Atrial fibrillation with rapid ventricular response Cardiomyopathy Chronic HFrEF (heart failure with reduced ejection fraction) HTN (hypertension) Family History Family History Father CAD (coronary artery disease) Mother Atrial fibrillation Surgical History Surgical History No pertinent past surgical history Social History Social History Household Members: None Housing: Apartment Do you presently have visiting nurse or other home services: No Unable to assess alcohol history related to: Unable to respond Alcohol intake: current Alcohol intake frequency: a few times a week Alcohol type: hard liquor Patient Tobacco Use Status: Never used Tobacco Smoked in Last 30 Days: No Patient Interested in Nicotine Replacement: No Patient Given Instructions on How to Stop Smoking: No Use of substances other than those prescribed or required for medical reasons: No Currently Displaying Signs/Symptoms of Drug Intoxication Withdrawal: No Any prior treatment program specific to substance use: No Have you been hit, kicked, punched, or otherwise hurt by someone within the past year? If so, by whom?: No Do you feel safe in your current relationship?: No Is there a partner from a previous relationship who is making you feel unsafe now?: No Are you made to feel afraid or neglected: No Advance Directives: No Advance Directives Information Provided: No Do you have thoughts of harming others: None Do you have a plan to hurt others: No Plan Recently lost weight without trying: Unsure Eating poorly because of decreased appetite: Yes Nutrition Risks: No Nutritional Risk Poor oral hygiene: No service: No Current occupational status: unemployed Meds Allergies Allergy/AdvReac Type Severity Reaction Status Date / Time No Known Allergies Allergy Verified 02/08/23 18:23 [No Known Allergies*] Active Medications: Current Medications Acetaminophen (Acetaminophen 325 Mg Tablet) 650 mg PO Q6H PRN PRN Reason: Pain, Mild (Pain Scale 1-3) Amiodarone HCl (Amiodarone Hcl 200 Mg Tablet) 200 mg PO DAILY [facility] Last Admin: 02/09/23 09:41 Dose: Not Given Digoxin (Digoxin 0.125 Mg Tablet) 0.125 mg PO Q2D [facility] Docusate Sodium (Docusate Sodium 100 Mg Capsule) 100 mg PO DAILY PRN PRN Reason: Constipation Enoxaparin Sodium (Enoxaparin Sodium 100 Mg/Ml Syringe) 90 mg 1 mg/kg (90 mg) SUBCUT Q12H [facility] Last Admin: 02/09/23 12:45 Dose: 90 mg Folic Acid (Folic Acid 1 Mg Tablet) 1 mg PO DAILY [facility] Last Admin: 02/09/23 08:08 Dose: 1 mg Ceftriaxone Sodium 1 gm/ (Sodium Chloride) 50 mls @ 100 mls/hr IV 0600 [facility] Last Infusion: 02/09/23 05:24 Dose: Infused Furosemide 200 mg/ Sodium (Chloride) 100 mls @ 2.5 mls/hr IVCONT .Q24H [facility] Last Admin: 02/09/23 12:40 Dose: 5 mg/hr, 2.5 mls/hr Metoprolol Succinate (Metoprolol Succinate Er 50 Mg Tab.Er.24h) 50 mg PO DAILY [facility]; Protocol Last Admin: 02/09/23 08:08 Dose: Not Given Ondansetron HCl (Ondansetron Hcl 4 Mg/2 Ml Vial) 4 mg IVPUSH Q8H PRN PRN Reason: Nausea and Vomiting Pharmacy Consult (Consult Rx Perform Med Rec) 1 each MISCELLANE ONCE PRN PRN Reason: Consult order Pharmacy Consult (Consult Rx Etoh Phenob Im/Po) 1 each MISCELLANE ONCE PRN; Protocol PRN Reason: Consult order Phenobarbital (Phenobarbital 15 Mg Tablet) 45 mg PO BID [facility]; Protocol Stop: 02/11/23 21:01 Phenobarbital (Phenobarbital 15 Mg Tablet) 15 mg PO BID [facility]; Protocol Stop: 02/13/23 21:01 Phenobarbital (Phenobarbital 15 Mg Tablet) 15 mg PO DAILY [facility]; Protocol Stop: 02/15/23 09:01 Potassium Chloride (Potassium Chloride Er 10 Meq Tablet.Er) 10 meq PO DAILY [facility] Last Admin: 02/09/23 08:08 Dose: 10 meq Potassium Chloride (Potassium Chloride Packet 20 Meq Packet) 20 meq PO ONCE ONE Stop: 02/09/23 14:03 Sodium Chloride (0.9 % Sodium Chloride Flush 3 Ml Syringe) 3 ml IVFLUSH QSHIFT [facility] Last Admin: 02/09/23 08:07 Dose: 3 ml Spironolactone (Spironolactone 25 Mg Tablet) 25 mg PO DAILY [facility]; Protocol Last Admin: 02/09/23 08:08 Dose: Not Given Thiamine HCl (Thiamine Hcl 100 Mg Tablet) 100 mg PO DAILY [facility] Last Admin: 02/09/23 08:10 Dose: 100 mg Home Medications Medication Instructions Recorded Confirmed Last Taken Type folic acid 1 mg tablet 1 mg PO DAILY 09/16/22 02/08/23 10/06/22 History losartan 25 mg tablet 25 mg PO Q OTHER DAY 09/16/22 02/08/23 10/06/22 History potassium chloride 10 mEq 10 meq PO DAILY 09/16/22 02/08/23 10/06/22 History tablet,extended release spironolactone 25 mg tablet 25 mg PO DAILY 09/16/22 02/08/23 10/06/22 History thiamine mononitrate (vit B1) 100 100 mg PO DAILY 09/16/22 02/08/23 10/06/22 History mg tablet (Vitamin B-1 (mononitrate)) digoxin 125 mcg (0.125 mg) tablet 125 mcg PO DAILY 12/13/22 02/08/23 Unknown History metoprolol succinate 50 mg 50 mg PO DAILY 12/13/22 02/08/23 Unknown History tablet,extended release 24 hr Physical Exam Vital Signs: Vital Signs: Last Vital Signs Temp 98.6 F 02/09/23 11:15 Pulse 101 H 02/09/23 11:15 Resp 20 02/09/23 11:15 BP 107/87 02/09/23 12:54 Pulse Ox 98 02/09/23 11:15 O2 Del Method Room Air 02/09/23 11:15 O2 Flow Rate 2 02/09/23 03:05 Oxygen Flow Rate 2 02/08/23 18:12 BMI result Body Mass Index 32.1 GENERAL APPEARANCE: in no acute distress, pleasant. NECK: no carotid bruit, + jugular venous distention. SKIN: no suspicious lesions, warm and dry. HEART: no murmurs, irregular rate and rhythm. Tachycardic. LUNGS: clear to auscultation bilaterally. ABDOMEN: soft, nontender. EXTREMITIES: +2 edema. PERIPHERAL PULSES: equal. NEUROLOGIC: No gross deficits, AAO X 3 Objective Labs and Meds 02/09/23 07:20 02/09/23 07:20 Lab results: Laboratory Results - last 24 hr 02/08/23 02/08/23 02/08/23 18:45 18:45 18:45 WBC RBC Hgb Hct MCV MCH MCHC RDW Plt Count MPV Immature Gran % (Auto) Neut % (Auto) Lymph % (Auto) Andrew % (Auto) Eos % (Auto) Baso % (Auto) Lymph # (Auto) Andrew # (Auto) Eos # (Auto) Baso # (Auto) Abs Immat Gran (auto) Absolute Neuts (auto) Absolute Nucleated RBC Nucleated RBC % (auto) PT INR APTT Sodium Potassium Chloride Carbon Dioxide Anion Gap BUN Creatinine Estim Creat Clear Calc Estimated GFR Random Glucose Lactic Acid Lactic Acid F/U @ 2Hr Lactic Acid F/U @ 4Hr Calcium Phosphorus Magnesium Total Bilirubin AST ALT Alkaline Phosphatase Troponin I High Sens B-Natriuretic Peptide Total Protein Albumin Lipase Urine Color Dark Yellow Urine Appearance Clear Urine pH [address] 1.015 Urine Protein 100 (2+) H Urine Glucose (UA) 250 H Urine Ketones Negative Urine Blood Negative Urine Nitrite Negative Ur Leukocyte Esterase Negative Urine RBC 0-2 Urine WBC 0-5 Ur Squamous Epith Cells 0-2 Urine Bacteria None Seen Hyaline Casts 0-2 Digoxin Urine Opiates Screen Not Detected Urine Fentanyl Screen Not Detected Ur Barbiturates Screen POSITIVE H Ur Phencyclidine Scrn Not Detected Ur Amphetamines Screen Not Detected U Benzodiazepines Scrn Not Detected Urine Cocaine Screen Not Detected U Marijuana (THC) Screen Not Detected Ethyl Alcohol Influenza Type A (PCR) NEGATIVE Influenza Type B (PCR) NEGATIVE RSV RNA Qual (PCR) NEGATIVE SARS-CoV-2 RNA (RT-PCR) NEGATIVE 02/08/23 02/08/23 02/08/23 18:48 18:49 18:49 WBC 9.1 RBC 3.41 L Hgb 12.5 L Hct 36.8 L MCV 107.9 H MCH 36.7 H MCHC 34.0 RDW 20.8 H Plt Count 220 D MPV 11.0 Immature Gran % (Auto) 1.9 H Neut % (Auto) 76.2 H Lymph % (Auto) 11.3 L Andrew % (Auto) 10.1 Eos % (Auto) 0.1 Baso % (Auto) 0.4 Lymph # (Auto) 1.0 L Andrew # (Auto) 0.9 Eos # (Auto) 0.0 Baso # (Auto) 0.0 Abs Immat Gran (auto) 0.17 H Absolute Neuts (auto) 7.0 Absolute Nucleated RBC 0.000 Nucleated RBC % (auto) 0.0 PT 14.8 H INR 1.2 H APTT 27.7 Sodium 133 L Potassium 2.9 L D Chloride 93 L Carbon Dioxide 27 Anion Gap 16 BUN 22 H Creatinine 1.33 Estim Creat Clear Calc 71.0 Estimated GFR 56 Random Glucose 149 H Lactic Acid Lactic Acid F/U @ 2Hr Lactic Acid F/U @ 4Hr Calcium 8.6 D Phosphorus Magnesium 1.8 Total Bilirubin 3.2 H AST 422 H ALT 228 H Alkaline Phosphatase 328 H Troponin I High Sens B-Natriuretic Peptide Total Protein 7.0 Albumin 3.8 Lipase 17 Urine Color Urine Appearance Urine pH Ur Specific Lane Urine Protein Urine Glucose (UA) Urine Ketones Urine Blood Urine Nitrite Ur Leukocyte Esterase Urine RBC Urine WBC Ur Squamous Epith Cells Urine Bacteria Hyaline Casts Digoxin Urine Opiates Screen Urine Fentanyl Screen Ur Barbiturates Screen Ur Phencyclidine Scrn Ur Amphetamines Screen U Benzodiazepines Scrn Urine Cocaine Screen U Marijuana (THC) Screen Ethyl Alcohol Influenza Type A (PCR) Influenza Type B (PCR) RSV RNA Qual (PCR) SARS-CoV-2 RNA (RT-PCR) 02/08/23 02/08/23 02/08/23 18:49 18:49 18:49 WBC RBC Hgb Hct MCV MCH MCHC RDW Plt Count MPV Immature Gran % (Auto) Neut % (Auto) Lymph % (Auto) Andrew % (Auto) Eos % (Auto) Baso % (Auto) Lymph # (Auto) Andrew # (Auto) Eos # (Auto) Baso # (Auto) Abs Immat Gran (auto) Absolute Neuts (auto) Absolute Nucleated RBC Nucleated RBC % (auto) PT INR APTT Sodium Potassium Chloride Carbon Dioxide Anion Gap BUN Creatinine Estim Creat Clear Calc Estimated GFR Random Glucose Lactic Acid Lactic Acid F/U @ 2Hr Lactic Acid F/U @ 4Hr Calcium Phosphorus 3.0 Magnesium Total Bilirubin AST ALT Alkaline Phosphatase Troponin I High Sens 45.1 H B-Natriuretic Peptide 2783 H Total Protein Albumin Lipase Urine Color Urine Appearance Urine pH Ur Specific Lane Urine Protein Urine Glucose (UA) Urine Ketones Urine Blood Urine Nitrite Ur Leukocyte Esterase Urine RBC Urine WBC Ur Squamous Epith Cells Urine Bacteria Hyaline Casts Digoxin Urine Opiates Screen Urine Fentanyl Screen Ur Barbiturates Screen Ur Phencyclidine Scrn Ur Amphetamines Screen U Benzodiazepines Scrn Urine Cocaine Screen U Marijuana (THC) Screen Ethyl Alcohol 174 Influenza Type A (PCR) Influenza Type B (PCR) RSV RNA Qual (PCR) SARS-CoV-2 RNA (RT-PCR) 02/08/23 02/08/23 02/08/23 18:49 21:54 23:53 WBC RBC Hgb Hct MCV MCH MCHC RDW Plt Count MPV Immature Gran % (Auto) Neut % (Auto) Lymph % (Auto) Andrew % (Auto) Eos % (Auto) Baso % (Auto) Lymph # (Auto) Andrew # (Auto) Eos # (Auto) Baso # (Auto) Abs Immat Gran (auto) Absolute Neuts (auto) Absolute Nucleated RBC Nucleated RBC % (auto) PT INR APTT Sodium Potassium Chloride Carbon Dioxide Anion Gap BUN Creatinine Estim Creat Clear Calc Estimated GFR Random Glucose Lactic Acid 2.3 H* Lactic Acid F/U @ 2Hr Lactic Acid F/U @ 4Hr Calcium Phosphorus Magnesium Total Bilirubin AST ALT Alkaline Phosphatase Troponin I High Sens 39.8 H B-Natriuretic Peptide Total Protein Albumin Lipase Urine Color Urine Appearance Urine pH Ur Specific Lane Urine Protein Urine Glucose (UA) Urine Ketones Urine Blood Urine Nitrite Ur Leukocyte Esterase Urine RBC Urine WBC Ur Squamous Epith Cells Urine Bacteria Hyaline Casts Digoxin < 0.2 L Urine Opiates Screen Urine Fentanyl Screen Ur Barbiturates Screen Ur Phencyclidine Scrn Ur Amphetamines Screen U Benzodiazepines Scrn Urine Cocaine Screen U Marijuana (THC) Screen Ethyl Alcohol Influenza Type A (PCR) Influenza Type B (PCR) RSV RNA Qual (PCR) SARS-CoV-2 RNA (RT-PCR) 02/09/23 02/09/23 02/09/23 02:16 07:20 07:20 WBC 8.5 RBC 3.20 L Hgb 11.8 L Hct 34.9 L MCV 109.1 H MCH 36.9 H MCHC 33.8 RDW 21.0 H Plt Count 179 MPV 11.1 Immature Gran % (Auto) 0.8 H Neut % (Auto) 70.9 Lymph % (Auto) 16.3 L Andrew % (Auto) 11.0 Eos % (Auto) 0.4 Baso % (Auto) 0.6 Lymph # (Auto) 1.4 Andrew # (Auto) 0.9 Eos # (Auto) 0.0 Baso # (Auto) 0.1 Abs Immat Gran (auto) 0.07 H Absolute Neuts (auto) 6.1 Absolute Nucleated RBC 0.020 H Nucleated RBC % (auto) 0.2 PT INR APTT Sodium 131 L Potassium 3.3 Chloride 94 L Carbon Dioxide 23 Anion Gap 17 BUN 21 H Creatinine 1.12 Estim Creat Clear Calc 88.9 Estimated GFR > 60 Random Glucose 139 H Lactic Acid Lactic Acid F/U @ 2Hr 2.5 H* Lactic Acid F/U @ 4Hr Calcium 8.3 L Phosphorus Magnesium Total Bilirubin 3.4 H AST 245 H ALT 186 H Alkaline Phosphatase 268 H Troponin I High Sens B-Natriuretic Peptide Total Protein 6.3 L Albumin 3.4 L Lipase Urine Color Urine Appearance Urine pH Ur Specific Lane Urine Protein Urine Glucose (UA) Urine Ketones Urine Blood Urine Nitrite Ur Leukocyte Esterase Urine RBC Urine WBC Ur Squamous Epith Cells Urine Bacteria Hyaline Casts Digoxin Urine Opiates Screen Urine Fentanyl Screen Ur Barbiturates Screen Ur Phencyclidine Scrn Ur Amphetamines Screen U Benzodiazepines Scrn Urine Cocaine Screen U Marijuana (THC) Screen Ethyl Alcohol Influenza Type A (PCR) Influenza Type B (PCR) RSV RNA Qual (PCR) SARS-CoV-2 RNA (RT-PCR) 02/09/23 02/09/23 07:20 07:20 WBC RBC Hgb Hct MCV MCH MCHC RDW Plt Count MPV Immature Gran % (Auto) Neut % (Auto) Lymph % (Auto) Andrew % (Auto) Eos % (Auto) Baso % (Auto) Lymph # (Auto) Andrew # (Auto) Eos # (Auto) Baso # (Auto) Abs Immat Gran (auto) Absolute Neuts (auto) Absolute Nucleated RBC Nucleated RBC % (auto) PT INR APTT Sodium Potassium Chloride Carbon Dioxide Anion Gap BUN Creatinine Estim Creat Clear Calc Estimated GFR Random Glucose Lactic Acid Lactic Acid F/U @ 2Hr Lactic Acid F/U @ 4Hr 3.0 H* Calcium Phosphorus Magnesium Total Bilirubin AST ALT Alkaline Phosphatase Troponin I High Sens B-Natriuretic Peptide 2758 H Total Protein Albumin Lipase Urine Color Urine Appearance Urine pH Ur Specific Lane Urine Protein Urine Glucose (UA) Urine Ketones Urine Blood Urine Nitrite Ur Leukocyte Esterase Urine RBC Urine WBC Ur Squamous Epith Cells Urine Bacteria Hyaline Casts Digoxin Urine Opiates Screen Urine Fentanyl Screen Ur Barbiturates Screen Ur Phencyclidine Scrn Ur Amphetamines Screen U Benzodiazepines Scrn Urine Cocaine Screen U Marijuana (THC) Screen Ethyl Alcohol Influenza Type A (PCR) Influenza Type B (PCR) RSV RNA Qual (PCR) SARS-CoV-2 RNA (RT-PCR) Imaging Radiologist's impression: Impressions Chest X-Ray 02/08/23 18:38 IMPRESSION: Stable enlargement of the cardiac silhouette. Atelectasis or small infiltrate in the right lateral mid lung. Abdomen/Pelvis CT 02/08/23 19:59 IMPRESSION: New bilateral lower lobe atelectasis or small infiltrates. . New wall thickening of the second and third portions of the duodenum and significant stranding of the surrounding fat. Question wall thickening of the cecum and proximal right colon as well. Increasing small amount of ascites. Diverticulosis. No evidence of diverticulitis. Enlarged fatty liver. Known liver lesion not well appreciated without IV contrast. New fluid around the gallbladder. The gallbladder is normal in size and no gallstones are seen by CT. Evolving right renal infarct. Fleischner guidelines were followed. Chest CTA 02/08/23 22:20 IMPRESSION: 1. Small pulmonary emboli in the right upper lobe and left lower lobe. 2. Areas of consolidation in the right upper lobe and right lower lobe. 3. Tiny amount of ascites. 4. Other incidental findings as described above. VTE: positive. Venous Duplex 02/09/23 00:55 IMPRESSION: No DVT demonstrated in the lower extremity. Assessment and Plan (1) Pulmonary embolism: Status: Acute (2) Acute on chronic congestive heart failure: Status: Acute (3) Alcohol abuse: Status: Acute (4) Atrial fibrillation with rapid ventricular response: Status: Acute Plan 57 gentleman with severe cardiomyopathy secondary to alcoholism. He is presenting with pulmonary embolism and pneumonia. He is significantly volume overloaded. There is question about noncompliance with medications. Agree with Lasix drip at this point. Monitor electrolytes closely. For atrial fibrillation continue the amiodarone 20 mg daily and digoxin 125 mcg daily. Hold the metoprolol succinate for now. Please do not give him any diltiazem IV or p.o.. No verapamil. He must abstain from alcohol and I had a detailed discussion with him about this. We will follow along with you. Does not require repeat echocardiography on this admission. Thank you for allowing me to participate in the care of your patient. Please feel free to contact me if you have any questions. Time Spent With Patient Time: Total time managing care of this patient today ____ minutes. Procedures Date of Service Date of Service: 02/09/23
[2023-02-09] MEDS: Potassium Chloride Packet 20 MEQ PACKET PO (14:48)
--- NOTE | 2023-02-09 17:01 | P.PNIM_ITS ---
Subjective Subjective Date of Service: 02/09/23 Interval History: acute CHF exacerbation,b/l pulm embolism Review of Systems sob seems and tachycardia slightly improving generalised weak. Physical Exam Vital Signs: Vital Signs: Last Vital Signs Temp 98.9 F 02/09/23 16:00 Pulse 89 02/09/23 16:00 Resp 17 02/09/23 16:00 BP 108/76 02/09/23 16:00 Pulse Ox 97 02/09/23 16:00 O2 Del Method Room Air 02/09/23 16:00 O2 Flow Rate 2 02/09/23 03:05 Oxygen Flow Rate 2 02/08/23 18:12 BMI result Body Mass Index 32.1 Appearance: Alert.? Oriented X3.? not in distress.? cvs: irregular rythem, [id number]. res: clear to auscultation ,no rhonchii or wheezing abd: no rebound or guarding ,nt, bs present. ext pulses present , no cyanosis . neuro: axo3 , nonfocal. Objective Data Active Medications Acetaminophen (Acetaminophen 325 Mg Tablet) 650 mg PO Q6H PRN PRN Reason: Pain, Mild (Pain Scale 1-3) Amiodarone HCl (Amiodarone Hcl 200 Mg Tablet) 200 mg PO DAILY [facility] Last Admin: 02/09/23 09:41 Dose: Not Given Documented By: VIVEK Non-Admin Reason: Previously Administered Digoxin (Digoxin 0.125 Mg Tablet) 0.125 mg PO DAILY [facility] Docusate Sodium (Docusate Sodium 100 Mg Capsule) 100 mg PO DAILY PRN PRN Reason: Constipation Enoxaparin Sodium (Enoxaparin Sodium 100 Mg/Ml Syringe) 90 mg 1 mg/kg (90 mg) SUBCUT Q12H [facility] Last Admin: 02/09/23 12:45 Dose: 90 mg Documented By: MARY Folic Acid (Folic Acid 1 Mg Tablet) 1 mg PO DAILY [facility] Last Admin: 02/09/23 08:08 Dose: 1 mg Documented By: VIVEK Ceftriaxone Sodium 1 gm/ (Sodium Chloride) 50 mls @ 100 mls/hr IV 0600 [facility] Last Infusion: 02/09/23 05:24 Dose: 0 mls/hr Documented By: IZABEL Furosemide 200 mg/ Sodium (Chloride) 100 mls @ 2.5 mls/hr IVCONT .Q24H [facility] Last Admin: 02/09/23 12:40 Dose: 5 mg/hr, 2.5 mls/hr Documented By: CARYARAugust Metoprolol Succinate (Metoprolol Succinate Er 50 Mg Tab.Er.24h) 50 mg PO DAILY [facility]; Protocol Last Admin: 02/09/23 08:08 Dose: Not Given Documented By: VIVEK Non-Admin Reason: Physician Held Med Ondansetron HCl (Ondansetron Hcl 4 Mg/2 Ml Vial) 4 mg IVPUSH Q8H PRN PRN Reason: Nausea and Vomiting Pharmacy Consult (Consult Rx Perform Med Rec) 1 each MISCELLANE ONCE PRN PRN Reason: Consult order Pharmacy Consult (Consult Rx Etoh Phenob Im/Po) 1 each MISCELLANE ONCE PRN; Protocol PRN Reason: Consult order Phenobarbital (Phenobarbital 15 Mg Tablet) 45 mg PO BID [facility]; Protocol Stop: 02/11/23 21:01 Phenobarbital (Phenobarbital 15 Mg Tablet) 15 mg PO BID [facility]; Protocol Stop: 02/13/23 21:01 Phenobarbital (Phenobarbital 15 Mg Tablet) 15 mg PO DAILY [facility]; Protocol Stop: 02/15/23 09:01 Potassium Chloride (Potassium Chloride Er 10 Meq Tablet.Er) 10 meq PO DAILY [facility] Last Admin: 02/09/23 08:08 Dose: 10 meq Documented By: VIVEK Sodium Chloride (0.9 % Sodium Chloride Flush 3 Ml Syringe) 3 ml IVFLUSH QSHIFT [facility] Last Admin: 02/09/23 16:50 Dose: Not Given Documented By: VIVEK Non-Admin Reason: IV Running Spironolactone (Spironolactone 25 Mg Tablet) 25 mg PO DAILY [facility]; Protocol Last Admin: 02/09/23 08:08 Dose: Not Given Documented By: VIVEK Non-Admin Reason: Physician Held Med Thiamine HCl (Thiamine Hcl 100 Mg Tablet) 100 mg PO DAILY [facility] Last Admin: 02/09/23 08:10 Dose: 100 mg Documented By: VIVEK Labs 02/09/23 07:20 02/09/23 07:20 Labs: Laboratory Results - last 24 hr 02/08/23 02/08/23 02/08/23 18:45 18:45 18:45 MCV MCH MCHC RDW Plt Count MPV Immature Gran % (Auto) Neut % (Auto) Lymph % (Auto) [place] % (Auto) Eos % (Auto) Baso % (Auto) Lymph # (Auto) [place] # (Auto) Eos # (Auto) Baso # (Auto) Abs Immat Gran (auto) Absolute Neuts (auto) Absolute Nucleated RBC Nucleated RBC % (auto) PT INR APTT Anion Gap Estim Creat Clear Calc Estimated GFR Random Glucose Lactic Acid Lactic Acid F/U @ 2Hr Lactic Acid F/U @ 4Hr Calcium Phosphorus Magnesium Total Bilirubin AST ALT Alkaline Phosphatase B-Natriuretic Peptide Total Protein Albumin Lipase Urine Color Dark Yellow Urine Appearance Clear Urine pH 6.0 Ur Specific [place] 1.015 Urine Protein 100 (2+) H Urine Glucose (UA) 250 H Urine Ketones Negative Urine Blood Negative Urine Nitrite Negative Ur Leukocyte Esterase Negative Urine RBC 0-2 Urine WBC 0-5 Ur Squamous Epith Cells 0-2 Urine Bacteria None Seen Hyaline Casts 0-2 Digoxin Urine Opiates Screen Not Detected Urine Fentanyl Screen Not Detected Ur Barbiturates Screen POSITIVE H Ur Phencyclidine Scrn Not Detected Ur Amphetamines Screen Not Detected U Benzodiazepines Scrn Not Detected Urine Cocaine Screen Not Detected U Marijuana (THC) Screen Not Detected Ethyl Alcohol Influenza Type A (PCR) NEGATIVE Influenza Type B (PCR) NEGATIVE RSV RNA Qual (PCR) NEGATIVE SARS-CoV-2 RNA (RT-PCR) NEGATIVE 02/08/23 02/08/23 02/08/23 18:48 18:49 18:49 MCV 107.9 H MCH 36.7 H MCHC 34.0 RDW 20.8 H Plt Count 220 D MPV 11.0 Immature Gran % (Auto) 1.9 H Neut % (Auto) 76.2 H Lymph % (Auto) 11.3 L [place] % (Auto) 10.1 Eos % (Auto) 0.1 Baso % (Auto) 0.4 Lymph # (Auto) 1.0 L [place] # (Auto) 0.9 Eos # (Auto) 0.0 Baso # (Auto) 0.0 Abs Immat Gran (auto) 0.17 H Absolute Neuts (auto) 7.0 Absolute Nucleated RBC 0.000 Nucleated RBC % (auto) 0.0 PT 14.8 H INR 1.2 H APTT 27.7 Anion Gap 16 Estim Creat Clear Calc 71.0 Estimated GFR 56 Random Glucose 149 H Lactic Acid Lactic Acid F/U @ 2Hr Lactic Acid F/U @ 4Hr Calcium 8.6 D Phosphorus Magnesium 1.8 Total Bilirubin 3.2 H AST 422 H ALT 228 H Alkaline Phosphatase 328 H B-Natriuretic Peptide Total Protein 7.0 Albumin 3.8 Lipase 17 Urine Color Urine Appearance Urine pH Ur Specific [place] Urine Protein Urine Glucose (UA) Urine Ketones Urine Blood Urine Nitrite Ur Leukocyte Esterase Urine RBC Urine WBC Ur Squamous Epith Cells Urine Bacteria Hyaline Casts Digoxin Urine Opiates Screen Urine Fentanyl Screen Ur Barbiturates Screen Ur Phencyclidine Scrn Ur Amphetamines Screen U Benzodiazepines Scrn Urine Cocaine Screen U Marijuana (THC) Screen Ethyl Alcohol Influenza Type A (PCR) Influenza Type B (PCR) RSV RNA Qual (PCR) SARS-CoV-2 RNA (RT-PCR) 02/08/23 02/08/23 02/08/23 18:49 18:49 18:49 MCV MCH MCHC RDW Plt Count MPV Immature Gran % (Auto) Neut % (Auto) Lymph % (Auto) [place] % (Auto) Eos % (Auto) Baso % (Auto) Lymph # (Auto) [place] # (Auto) Eos # (Auto) Baso # (Auto) Abs Immat Gran (auto) Absolute Neuts (auto) Absolute Nucleated RBC Nucleated RBC % (auto) PT INR APTT Anion Gap Estim Creat Clear Calc Estimated GFR Random Glucose Lactic Acid Lactic Acid F/U @ 2Hr Lactic Acid F/U @ 4Hr Calcium Phosphorus 3.0 Magnesium Total Bilirubin AST ALT Alkaline Phosphatase B-Natriuretic Peptide 2783 H Total Protein Albumin Lipase Urine Color Urine Appearance Urine pH Ur Specific [place] Urine Protein Urine Glucose (UA) Urine Ketones Urine Blood Urine Nitrite Ur Leukocyte Esterase Urine RBC Urine WBC Ur Squamous Epith Cells Urine Bacteria Hyaline Casts Digoxin < 0.2 L Urine Opiates Screen Urine Fentanyl Screen Ur Barbiturates Screen Ur Phencyclidine Scrn Ur Amphetamines Screen U Benzodiazepines Scrn Urine Cocaine Screen U Marijuana (THC) Screen Ethyl Alcohol 174 Influenza Type A (PCR) Influenza Type B (PCR) RSV RNA Qual (PCR) SARS-CoV-2 RNA (RT-PCR) 02/08/23 02/09/23 02/09/23 23:53 02:16 07:20 MCV 109.1 H MCH 36.9 H MCHC 33.8 RDW 21.0 H Plt Count 179 MPV 11.1 Immature Gran % (Auto) 0.8 H Neut % (Auto) 70.9 Lymph % (Auto) 16.3 L [place] % (Auto) 11.0 Eos % (Auto) 0.4 Baso % (Auto) 0.6 Lymph # (Auto) 1.4 [place] # (Auto) 0.9 Eos # (Auto) 0.0 Baso # (Auto) 0.1 Abs Immat Gran (auto) 0.07 H Absolute Neuts (auto) 6.1 Absolute Nucleated RBC 0.020 H Nucleated RBC % (auto) 0.2 PT INR APTT Anion Gap Estim Creat Clear Calc Estimated GFR Random Glucose Lactic Acid 2.3 H* Lactic Acid F/U @ 2Hr 2.5 H* Lactic Acid F/U @ 4Hr Calcium Phosphorus Magnesium Total Bilirubin AST ALT Alkaline Phosphatase B-Natriuretic Peptide Total Protein Albumin Lipase Urine Color Urine Appearance Urine pH Ur Specific [place] Urine Protein Urine Glucose (UA) Urine Ketones Urine Blood Urine Nitrite Ur Leukocyte Esterase Urine RBC Urine WBC Ur Squamous Epith Cells Urine Bacteria Hyaline Casts Digoxin Urine Opiates Screen Urine Fentanyl Screen Ur Barbiturates Screen Ur Phencyclidine Scrn Ur Amphetamines Screen U Benzodiazepines Scrn Urine Cocaine Screen U Marijuana (THC) Screen Ethyl Alcohol Influenza Type A (PCR) Influenza Type B (PCR) RSV RNA Qual (PCR) SARS-CoV-2 RNA (RT-PCR) 02/09/23 02/09/23 02/09/23 07:20 07:20 07:20 MCV MCH MCHC RDW Plt Count MPV Immature Gran % (Auto) Neut % (Auto) Lymph % (Auto) [place] % (Auto) Eos % (Auto) Baso % (Auto) Lymph # (Auto) [place] # (Auto) Eos # (Auto) Baso # (Auto) Abs Immat Gran (auto) Absolute Neuts (auto) Absolute Nucleated RBC Nucleated RBC % (auto) PT INR APTT Anion Gap 17 Estim Creat Clear Calc 88.9 Estimated GFR > 60 Random Glucose 139 H Lactic Acid Lactic Acid F/U @ 2Hr Lactic Acid F/U @ 4Hr 3.0 H* Calcium 8.3 L Phosphorus Magnesium Total Bilirubin 3.4 H AST 245 H ALT 186 H Alkaline Phosphatase 268 H B-Natriuretic Peptide 2758 H Total Protein 6.3 L Albumin 3.4 L Lipase Urine Color Urine Appearance Urine pH Ur Specific [place] Urine Protein Urine Glucose (UA) Urine Ketones Urine Blood Urine Nitrite Ur Leukocyte Esterase Urine RBC Urine WBC Ur Squamous Epith Cells Urine Bacteria Hyaline Casts Digoxin Urine Opiates Screen Urine Fentanyl Screen Ur Barbiturates Screen Ur Phencyclidine Scrn Ur Amphetamines Screen U Benzodiazepines Scrn Urine Cocaine Screen U Marijuana (THC) Screen Ethyl Alcohol Influenza Type A (PCR) Influenza Type B (PCR) RSV RNA Qual (PCR) SARS-CoV-2 RNA (RT-PCR) Assessment and Plan (1) Acute on chronic congestive heart failure: Status: Acute (2) Pulmonary embolism: Status: Acute Plan 57-year-old male with past medical history of heart failure with reduced ejection fraction AFib, comes into the hospital shortness of breath found to have acute PE bilateral pulmonary emboli- appears to be acute - with hypoxia,patient noncompliant with Eliquis, due to forgetfulness continue Lovenox full dose discussed extensively the need to be compliant with his anticoagulants otherwise he runs a high risk of recurrent PE as well as stroke AFib with RVR- secondary to CHF exacerbation as well as PE continue digoxin amiodarone, hold metoprolol ? boderline bp. monitor BP closely admit to telemetry acute CHF exacerbation - has elevated BNP, orthopnea, PND, lower extremity edema - likely secondary to AFib started IV Lasix drip ,added extra 40 mg iv lasix. - strict I&O, low-sodium diet, daily weight - monitor respiratory status acute hypokalemia - repleted - follow BMP alcohol abuse with potential for withdrawal - started on phenobarb protocol - thiamine and folic acid supplement DVT prophylaxis:? Lovenox full dose inpatient need: AFib with RVR, PE, as well as CHF exacerbation requiring IV Lasix-moniter i/o, renal function and electrolytes . Time Spent With Patient Time: Total time managing care of this patient today ____ minutes. Quality Stroke Does the patient have a stroke diagnosis?: No VTE Prior VTE?: No VTE Risk Level:: Medical - moderate - high VTE Device Contraindication: Treatment Not Indicated VTE Drug Contraindication: N/A - Med Ordered
[2023-02-09] MEDS: Furosemide 40 MG/4 ML VIAL IVPUSH (17:23)
[2023-02-10] VITALS (7 sets, daily range): BP systolic 102–130; BP diastolic 58–92; PULSE 57–115; RESP 18–20; TEMP 35.9–36.7; O2SAT 93–98
[2023-02-10] MEDS: cefTRIAXone sodium 1 GM in 0.9 % Sodium Chloride 50 ML IV (05:39)
[2023-02-10] MEDS: Digoxin 0.125 MG TABLET PO (09:06)
[2023-02-10] MEDS: Folic Acid 1 MG TABLET PO (09:06)
[2023-02-10] MEDS: Thiamine HCL 100 MG TABLET PO (09:06)
[2023-02-10] MEDS: PHENobarbitaL 15 MG TABLET 45 MG PO ×2 (09:06→19:52)
[2023-02-10] MEDS: Potassium Chloride ER 10 MEQ TABLET.ER PO (09:07)
[2023-02-10] MEDS: Amiodarone HCL 200 MG TABLET PO (09:08)
--- NOTE | 2023-02-10 09:16 | PC.NURSE ---
Patient alert and oriented x 3. Refusing high risk fall protocol. Patient refusing bed alarm and camera to be removed from room. Patient educated on high fall risk interventions. Camera removed per patient request. Patient encouraged to use call tillman to facilitate his needs.
[2023-02-10 10:27] LABS: Alanine Aminotransferase 145 U/L (0-40); Albumin Level 3.3 g/dL (3.5-5.0); Alkaline Phosphatase 232 U/L (39-117); Anion Gap 15 (12-20); Aspartate Amino Transferase 148 U/L (5-37); Bilirubin Total 3.7 mg/dL (0.0-1.0); Blood Urea Nitrogen 23 mg/dL (9-16); Calcium 8.5 mg/dL (8.4-10.2); Carbon Dioxide 27 mmol/L (22-29); Chloride 90 mmol/L (96-108); Creatinine Clr Calc Pharmacy 85.8; Estimated Glomerular Filt Rate > 60; Glucose Random 193 mg/dL (60-115); Potassium 3.4 mmol/L (3.3-5.1); Sodium 129 mmol/L (135-145)
[2023-02-10] MEDS: Metoprolol Tartrate 12.5 MG HALFTAB PO ×4 (10:35→19:51)
--- NOTE | 2023-02-10 11:47 | MHC.CM.PN ---
EMR REVIEWED, PT W/CHF/PE/AFIB W/RVR REMAINS ON LASIX DRIP, STARTED ON DIGOXIN, NO PLAN FOR D/C AT THIS TIME, CM WILL CONT TO FOLLOW D/C NEEDS.
--- NOTE | 2023-02-10 12:12 | PC.NURSE ---
Patient a fib 120s-130s on tele. Patient asymptomatic, ambulating in room. New md order metoprolol po 12.5mg QID.
[2023-02-10] MEDS: Furosemide 200 MG in 0.9 % Sodium Chloride 80 ML IVCONT (12:36)
[2023-02-10] MEDS: Enoxaparin Sodium 100 MG/ML SYRINGE 90 MG SUBCUT ×2 (12:39)
--- NOTE | 2023-02-10 13:16 | P.CDIM_ITS ---
PROVIDER RESPONSE TEXT: To clarify, the appropriate diagnosis supported by the clinical indicators: Other (explain): hyponatremia -due to poor oralintake/chf/diurtic rx QUERY TEXT: PHYSICIAN'S DOCUMENTATION REQUEST Date of Query: 02/10/2023 08:04 AM EDT Patient Name: Abner Galvan Admit Date: 02/09/2023 Dear Keon Bennett, A review of the medical record indicates additional documentation may be needed. Please review below and update the documentation accordingly. Clinical Indicators: LAB FINDINGS: sodium 131L IV fluids Based on the above, is there a diagnosis that correlates with these lab findings: Hyponatremia, resolved Labs indicate a diagnosis of (please specify) Other please specify Other (explain)Clinically unable to determine (explain)Thank you, Roz Barriga, CCS, CDIS Use of terms such as suspected, likely, concern for, or probable (associated with a specific diagnosi s that is being evaluated, monitored, or treated as if it exists) are acceptable and can be coded in the inpatient se tting, when documented at the time of discharge. Please use your independent medical judgment in providing your response. THIS QUERY IS PART OF THE PERMANENT MEDICAL RECORD
--- NOTE | 2023-02-10 13:19 | P.CDIM_ITS ---
PROVIDER RESPONSE TEXT: To clarify, the appropriate diagnosis supported by the clinical indicators: Chronic or Permanent atrial fibrillation: when a decision has been made to accept the presence of AF and there is no further attempt to restore or maintain sinus rhythm QUERY TEXT: PHYSICIAN'S DOCUMENTATION REQUEST Date of Query: 02/10/2023 10:12 AM EDT Patient Name: Abner Galvan Admit Date: 02/09/2023 Dear Keon Bennett, A review of the medical record indicates additional documentation may be needed. Please review below and update the documentation accordingly. Clinical Indicators: Cardiology note 02/09- For atrial fibrillation continue amiodarone 20 mg daily and digoxin 125 mcg keegan y. PN: AFib with RVR secondary to CHF exacerbation as well as PE. Monitor BP closely Admit to telemetry If possible, please provide further specificity regarding atrial fibrillation, such as: Paroxysmal atrial fibrillation: terminates spontaneously or with intervention within 7 days of onset Persistent atrial fibrillation: episodes of continuous AF that last more than 7 days and do not self- terminate Long lasting persistent atrial fibrillation: episodes of continuous AF that last more than 12 months Chronic or Permanent atrial fibrillation: when a decision has been made to accept the presence of AF and there is no further attempt to restore or maintain sinus rhythm Other (explain)Clinically unable to determine (explain)Thank you, Roz Barriga, CCS, CDIS Use of terms such as suspected, likely, concern for, or probable (associated with a specific diagnosi s that is being evaluated, monitored, or treated as if it exists) are acceptable and can be coded in the inpatient se tting, when documented at the time of discharge. Please use your independent medical judgment in providing your response. THIS QUERY IS PART OF THE PERMANENT MEDICAL RECORD
--- NOTE | 2023-02-10 13:19 | P.CDIM_ITS ---
PROVIDER RESPONSE TEXT: To clarify, the appropriate diagnosis supported by the clinical indicators: Acute lactic acidosis QUERY TEXT: PHYSICIAN'S DOCUMENTATION REQUEST Date of Query: 02/10/2023 12:30 PM EDT Patient Name: Abner Galvan Admit Date: 02/09/2023 Dear Keon Bennett, A review of the medical record indicates additional documentation may be needed. Please review below and update the documentation accordingly. Clinical Indicators: LAB FINDINGS: Lactic acid 2.3 2.5 3.0 Based on the above, is there a diagnosis that correlates with the lab findings: Acute lactic acidosis Acute metabolic acidosis Labs indicate a diagnosis of (please specify if known) Other (explain)Clinically unable to determine (explain)Thank you, Roz Barriga, CCS, CDIS Use of terms such as suspected, likely, concern for, or probable (associated with a specific diagnosi s that is being evaluated, monitored, or treated as if it exists) are acceptable and can be coded in the inpatient se tting, when documented at the time of discharge. Please use your independent medical judgment in providing your response. THIS QUERY IS PART OF THE PERMANENT MEDICAL RECORD
--- NOTE | 2023-02-10 15:47 | PM.PNCARD ---
Subjective Subjective Date of Service: 02/10/23 Interval history: Seen examined at bedside. He walked and is feeling better. Still significant volume overload. Physical Exam Vital Signs: Last Vital Signs Temp 96.7 F L 02/10/23 15:25 Pulse 57 02/10/23 15:25 Resp 18 02/10/23 15:25 BP 122/91 H 02/10/23 15:25 Pulse Ox 97 02/10/23 11:20 O2 Del Method Room Air 02/10/23 11:20 O2 Flow Rate 2 02/09/23 03:05 Oxygen Flow Rate 2 02/08/23 18:12 BMI result Body Mass Index 32.1 GENERAL APPEARANCE: in no acute distress, pleasant. NECK: no carotid bruit, + jugular venous distention. SKIN: no suspicious lesions, warm and dry. HEART: no murmurs, irregular rate and rhythm. Tachycardic. LUNGS: clear to auscultation bilaterally. ABDOMEN: soft, nontender. EXTREMITIES: +2 edema. PERIPHERAL PULSES: equal. NEUROLOGIC: No gross deficits, AAO X 3 Objective Labs and Meds 02/09/23 07:20 02/10/23 09:33 Lab results: Laboratory Results - last 24 hr 02/10/23 09:33 Sodium 129 L Potassium 3.4 Chloride 90 L Carbon Dioxide 27 Anion Gap 15 BUN 23 H Creatinine 1.16 Estim Creat Clear Calc 85.8 Estimated GFR > 60 Random Glucose 193 H Calcium 8.5 Total Bilirubin 3.7 H AST 148 H ALT 145 H Alkaline Phosphatase 232 H Total Protein 6.0 L Albumin 3.3 L Progress Note: A&P Assessment and plan (1) Acute on chronic congestive heart failure: Status: Acute Plan [age] gentleman background of alcoholism and severe cardiomyopathy likely secondary to alcoholism presenting with acute PE for which he has been started on apixaban as well as congestive heart failure. Still volume overloaded. Heart rates are not well controlled. On Lasix drip. Continue digoxin 125 mcg daily and amiodarone 20 mg daily. Can resume Toprol-XL at 25 mg once a day. Spironolactone 25 mg daily can be continued. Continue the Lasix drip. He is adamant that he wants to leave. If he leaves today he should be on Lasix 40 mg twice a day. Thank you for allowing me to participate in the care of your patient. Please feel free to contact me if you have any questions. Time Spent With Patient Time: Total time managing care of this patient today ____ minutes. Progress Note: Quality Stroke Does the patient have a stroke diagnosis?: No Procedures Date of Service Date of Service: 02/10/23
--- NOTE | 2023-02-10 17:14 | HO.PM.IMPN ---
Subjective Subjective Date of Service: 02/10/23 Interval History: acute CHF exacerbation,b/l pulm embolism Review of Systems sob seems and tachycardia slightly improving generalised weak. Physical Exam Vital Signs: Vital Signs: Last Vital Signs Temp 96.7 F L 02/10/23 15:25 Pulse 57 02/10/23 15:25 Resp 18 02/10/23 15:25 BP 122/91 H 02/10/23 15:25 Pulse Ox 98 02/10/23 17:02 O2 Del Method Room Air 02/10/23 17:02 O2 Flow Rate 2 02/09/23 03:05 Oxygen Flow Rate 2 02/08/23 18:12 BMI result Body Mass Index 32.1 Appearance: Alert.? Oriented X3.? not in distress.? cvs: irregular rythem, [id number]. res: clear to auscultation ,no rhonchii or wheezing abd: no rebound or guarding ,nt, bs present. ext pulses present , no cyanosis . neuro: axo3 , nonfocal. Objective Data Active Medications Acetaminophen (Acetaminophen 325 Mg Tablet) 650 mg PO Q6H PRN PRN Reason: Pain, Mild (Pain Scale 1-3) Amiodarone HCl (Amiodarone Hcl 200 Mg Tablet) 200 mg PO DAILY [facility] Last Admin: 02/10/23 09:08 Dose: 200 mg Documented By: DUY Digoxin (Digoxin 0.125 Mg Tablet) 0.125 mg PO DAILY [facility] Last Admin: 02/10/23 09:06 Dose: 0.125 mg Documented By: DUY Docusate Sodium (Docusate Sodium 100 Mg Capsule) 100 mg PO DAILY PRN PRN Reason: Constipation Enoxaparin Sodium (Enoxaparin Sodium 100 Mg/Ml Syringe) 90 mg 1 mg/kg (90 mg) SUBCUT Q12H [facility] Last Admin: 02/10/23 12:39 Dose: 90 mg Documented By: DUY Folic Acid (Folic Acid 1 Mg Tablet) 1 mg PO DAILY [facility] Last Admin: 02/10/23 09:06 Dose: 1 mg Documented By: DUY Ceftriaxone Sodium 1 gm/ (Sodium Chloride) 50 mls @ 100 mls/hr IV 0600 [facility], [facility] Last Infusion: 02/10/23 06:10 Dose: 0 mls/hr Documented By: HO.PHANLYM Furosemide 200 mg/ Sodium (Chloride) 100 mls @ 3.75 mls/hr IVCONT .Q24H EDWIN Last Admin: 02/10/23 12:36 Dose: 7.5 mg/hr, 3.75 mls/hr Documented By: DUY Metoprolol Succinate (Metoprolol Succinate Er 50 Mg Tab.Er.24h) 50 mg PO DAILY EDWIN; Protocol Last Admin: 02/09/23 08:08 Dose: Not Given Documented By: VIVEK Non-Admin Reason: Physician Held Med Metoprolol Tartrate (Metoprolol Tartrate 12.5 Mg Halftab) 12.5 mg PO QID EDWIN; Protocol Last Admin: 02/10/23 16:59 Dose: 12.5 mg Documented By: ANNABELLA Ondansetron HCl (Ondansetron Hcl 4 Mg/2 Ml Vial) 4 mg IVPUSH Q8H PRN PRN Reason: Nausea and Vomiting Pharmacy Consult (Consult Rx Perform Med Rec) 1 each MISCELLANE ONCE PRN PRN Reason: Consult order Pharmacy Consult (Consult Rx Etoh Phenob Im/Po) 1 each MISCELLANE ONCE PRN; Protocol PRN Reason: Consult order Phenobarbital (Phenobarbital 15 Mg Tablet) 45 mg PO BID EDWIN; Protocol Stop: 02/11/23 21:01 Last Admin: 02/10/23 09:06 Dose: 45 mg Documented By: DUY Phenobarbital (Phenobarbital 15 Mg Tablet) 15 mg PO BID EDWIN; Protocol Stop: 02/13/23 21:01 Phenobarbital (Phenobarbital 15 Mg Tablet) 15 mg PO DAILY EDWIN; Protocol Stop: 02/15/23 09:01 Potassium Chloride (Potassium Chloride Er 10 Meq Tablet.Er) 10 meq PO DAILY EDWIN Last Admin: 02/10/23 09:07 Dose: 10 meq Documented By: DUY Sodium Chloride (0.9 % Sodium Chloride Flush 3 Ml Syringe) 3 ml IVFLUSH QSHIFT [facility], [facility] Last Admin: 02/10/23 15:34 Dose: Not Given Documented By: ANNABELLA Non-Admin Reason: IV Running Spironolactone (Spironolactone 25 Mg Tablet) 25 mg PO DAILY [facility], [facility]; Protocol Last Admin: 02/09/23 08:08 Dose: Not Given Documented By: VIVEK Non-Admin Reason: Physician Held Med Thiamine HCl (Thiamine Hcl 100 Mg Tablet) 100 mg PO DAILY EDWIN Last Admin: 02/10/23 09:06 Dose: 100 mg Documented By: DUY Labs 02/09/23 07:20 02/10/23 09:33 Labs: Laboratory Results - last 24 hr 02/10/23 09:33 Anion Gap 15 Estim Creat Clear Calc 85.8 Estimated GFR > 60 Random Glucose 193 H Calcium 8.5 Total Bilirubin 3.7 H AST 148 H ALT 145 H Alkaline Phosphatase 232 H Total Protein 6.0 L Albumin 3.3 L Microbiology Microbiology Results: Microbiology 02/08/23 23:55 Blood Culture - Preliminary Blood - Venous No growth after 24 hours. 02/08/23 23:53 Blood Culture - Preliminary Blood - Venous No growth after 24 hours. Assessment and Plan (1) Acute on chronic congestive heart failure: Status: Acute (2) Pulmonary embolism: Status: Acute Plan 57-year-old male with past medical history of heart failure with reduced ejection fraction AFib, comes into the hospital shortness of breath found to have acute PE bilateral pulmonary emboli- appears to be acute - with hypoxia,patient noncompliant with Eliquis, due to forgetfulness continue Lovenox full dose discussed extensively the need to be compliant with his anticoagulants otherwise he runs a high risk of recurrent PE as well as stroke Ch. AFib with RVR- secondary to CHF exacerbation as well as PE continue digoxin amiodarone, hold metoprolol ? boderline bp. monitor BP closely admit to telemetry acute CHF exacerbation - has elevated BNP, orthopnea, PND, lower extremity edema - likely secondary to AFib started IV Lasix drip ,added extra 40 mg iv lasix. - strict I&O, low-sodium diet, daily weight - monitor respiratory status acute hypokalemia - repleted - follow BMP alcohol abuse with potential for withdrawal - started on phenobarb protocol - thiamine and folic acid supplement Hyponatremia: Multifactorial low p.o. intake, CHF/on diuretics. Continue to monitor. Acute lactic acidosis: multifactorial chf /boderline bp . no sepsis elevated lft's: Multifactorial(CHF, alcohol use) Improving Continue to monitor . DVT prophylaxis:? Lovenox full dose inpatient need: AFib with RVR, PE, as well as CHF exacerbation requiring IV Lasix-moniter i/o, renal function and electrolytes . Time Spent With Patient Time: Total time managing care of this patient today ____ minutes. Quality Stroke Does the patient have a stroke diagnosis?: No VTE Prior VTE?: No VTE Risk Level:: Medical - moderate - high VTE Device Contraindication: Treatment Not Indicated VTE Drug Contraindication: N/A - Med Ordered
[2023-02-10 18:45] LABS: Potassium Urine Random 33.2 mmol/L
[2023-02-10 19:07] LABS: Osmolality Urine 267 mosm/kg (373-1093)
[2023-02-10] MEDS: 0.9 % Sodium Chloride Flush 3 ML SYRINGE IVFLUSH ×2 (19:52)
[2023-02-10 23:48] LABS: Osmolality, Serum 265 mosm/kg (281-305)
[2023-02-11] MEDS: Enoxaparin Sodium 100 MG/ML SYRINGE 90 MG SUBCUT ×2 (00:37→13:42)
[2023-02-11 03:37] VITALS: BP 83/54; PULSE 118; RESP 20; TEMP 36.4; O2SAT 93
--- NOTE | 2023-02-11 05:10 | PC.NURSE ---
Addendum entered by Rita German RN 02/11/23 06:23: Bp improved, notified. Lasix gtt restarted at 5mg/hr. Original Note: BP this AM low at 83/54. Denies dizziness or light headedness. MD Iraheta made aware, Lasix gtt to be held for 1 hr and recheck BP.
[2023-02-11] MEDS: cefTRIAXone sodium 1 GM in 0.9 % Sodium Chloride 50 ML IV (05:19)
[2023-02-11 06:01] VITALS: BP 118/76
[2023-02-11 07:32] VITALS: BP 110/69; PULSE 110; RESP 20; TEMP 36.2; O2SAT 97
[2023-02-11 08:04] LABS: Anion Gap 14 (12-20); Blood Urea Nitrogen 23 mg/dL (9-16); Carbon Dioxide 27 mmol/L (22-29); Chloride 91 mmol/L (96-108); Creatinine Clr Calc Pharmacy 87.4; Estimated Glomerular Filt Rate > 60; Glucose Random 96 mg/dL (60-115); Potassium 3.1 mmol/L (3.3-5.1); Sodium 129 mmol/L (135-145)
[2023-02-11 08:19] LABS: Calcium 8.1 mg/dL (8.4-10.2)
[2023-02-11] MEDS: Folic Acid 1 MG TABLET PO (09:53)
[2023-02-11] MEDS: Potassium Chloride ER 10 MEQ TABLET.ER PO (09:53)
[2023-02-11] MEDS: 0.9 % Sodium Chloride Flush 3 ML SYRINGE IVFLUSH (09:54)
[2023-02-11] MEDS: Metoprolol Tartrate 12.5 MG HALFTAB PO ×2 (09:54→13:41)
[2023-02-11] MEDS: Thiamine HCL 100 MG TABLET PO (09:54)
[2023-02-11] MEDS: PHENobarbitaL 15 MG TABLET 45 MG PO (09:54)
[2023-02-11] MEDS: Digoxin 0.125 MG TABLET PO (09:54)
[2023-02-11] MEDS: Amiodarone HCL 200 MG TABLET PO (09:54)
[2023-02-11] MEDS: Magnesium Oxide 400 MG TABLET 800 MG PO (09:54)
[2023-02-11] MEDS: Potassium Chloride Packet 20 MEQ PACKET 40 MEQ PO (09:55)
[2023-02-11 10:20] LABS: B Type Natriuretic Peptide 3729 pg/mL (<100)
--- NOTE | 2023-02-11 10:59 | P.CONNP_ITS ---
History of Present Illness Reason for Consult Consult date: 02/11/23 Reason for consult: Hyponatremia Chief Complaint Chief complaint: CHF, PE, A/fib w RVR History of Present Illness Narrative: 57-year-old male with p AFib, cardiomyopathy, chronic heart failure with reduced ejection fraction, hypertension, alcohol abuse, hypertension, comes into the hospital with complaints of dizziness, and shortness of breath.? Patient reports that he started having shortness of breath for several months but worsened today.? He was standing at work when all of a sudden he started feeling lightheaded and had increased shortness of breath.? He denies losing consciousness, reports lower extremity swelling for the past several weeks to 1 month, has orthopnea, PND, denies any chest pain, no palpitations, no abdominal pain nausea or vomiting, no diarrhea constipation, no urinary symptoms.? No numbness tingling or weakness.? No headache or change in vision. Of note patient does state that he misses his Eliquis and his other medications frequently as he forgets He admits to drinking excessive liquids. He drinks about a gal of ice tea and lemonade every day. History of alcohol intake as well. Review of Systems Review of Systems Yes all other systems are reviewed and are negative Denies nasal congestion Cardiovascular: Denies chest pain, Reports rapid heart rate and Denies dyspnea Respiratory: Denies cough and Denies dyspnea Gastrointestinal: Denies abdominal pain, Denies heartburn and Denies vomiting Genitourinary: Denies difficulty urinating and Denies dysuria Denies focal weakness PMFSH Past Medical History Medical History Alcohol dependence with withdrawal Alcoholic hepatitis Atrial fibrillation with rapid ventricular response Cardiomyopathy Chronic HFrEF (heart failure with reduced ejection fraction) HTN (hypertension) Family History Family History Father CAD (coronary artery disease) Mother Atrial fibrillation Surgical History Surgical History No pertinent past surgical history Social History Social History Household Members: None Housing: Apartment Do you presently have visiting nurse or other home services: No Unable to assess alcohol history related to: Unable to respond Alcohol intake: current Alcohol intake frequency: a few times a week Alcohol type: hard liquor Patient Tobacco Use Status: Never used Tobacco Smoked in Last 30 Days: No Patient Interested in Nicotine Replacement: No Patient Given Instructions on How to Stop Smoking: No Use of substances other than those prescribed or required for medical reasons: No Currently Displaying Signs/Symptoms of Drug Intoxication Withdrawal: No Any prior treatment program specific to substance use: No Have you been hit, kicked, punched, or otherwise hurt by someone within the past year? If so, by whom?: No Do you feel safe in your current relationship?: No Is there a partner from a previous relationship who is making you feel unsafe now?: No Are you made to feel afraid or neglected: No Advance Directives: No Advance Directives Information Provided: No Do you have thoughts of harming others: None Do you have a plan to hurt others: No Plan Recently lost weight without trying: Unsure Eating poorly because of decreased appetite: Yes Nutrition Risks: No Nutritional Risk Poor oral hygiene: No service: No Current occupational status: unemployed Meds Allergies Allergy/AdvReac Type Severity Reaction Status Date / Time No Known Allergies Allergy Verified 02/08/23 18:23 [No Known Allergies*] Active Medications: Current Medications Acetaminophen (Acetaminophen 325 Mg Tablet) 650 mg PO Q6H PRN PRN Reason: Pain, Mild (Pain Scale 1-3) Amiodarone HCl (Amiodarone Hcl 200 Mg Tablet) 200 mg PO DAILY [facility] Last Admin: 02/11/23 09:54 Dose: 200 mg Digoxin (Digoxin 0.125 Mg Tablet) 0.125 mg PO DAILY [facility] Last Admin: 02/11/23 09:54 Dose: 0.125 mg Docusate Sodium (Docusate Sodium 100 Mg Capsule) 100 mg PO DAILY PRN PRN Reason: Constipation Enoxaparin Sodium (Enoxaparin Sodium 100 Mg/Ml Syringe) 90 mg 1 mg/kg (90 mg) S UBCUT Q12H [facility] Last Admin: 02/11/23 00:37 Dose: 90 mg Folic Acid (Folic Acid 1 Mg Tablet) 1 mg PO DAILY [facility] Last Admin: 02/11/23 09:53 Dose: 1 mg Ceftriaxone Sodium 1 gm/ (Sodium Chloride) 50 mls @ 100 mls/hr IV 0600 [facility] Last Infusion: 02/11/23 06:02 Dose: Infused Furosemide 200 mg/ Sodium (Chloride) 100 mls @ 2.5 mls/hr IVCONT .Q24H [facility] Last Infusion: 02/11/23 10:42 Dose: 0 mg/hr, 0 mls/hr Magnesium Oxide (Magnesium Oxide 400 Mg Tablet) 800 mg PO DAILY [facility] Last Admin: 02/11/23 09:54 Dose: 800 mg Metoprolol Succinate (Metoprolol Succinate Er 50 Mg Tab.Er.24h) 50 mg PO DAILY [facility]; Protocol Last Admin: 02/09/23 08:08 Dose: Not Given Metoprolol Tartrate (Metoprolol Tartrate 12.5 Mg Halftab) 12.5 mg PO QID [facility]; Protocol Last Admin: 02/11/23 09:54 Dose: 12.5 mg Ondansetron HCl (Ondansetron Hcl 4 Mg/2 Ml Vial) 4 mg IVPUSH Q8H PRN PRN Reason: Nausea and Vomiting Pharmacy Consult (Consult Rx Perform Med Rec) 1 each MISCELLANE ONCE PRN PRN Reason: Consult order Pharmacy Consult (Consult Rx Etoh Phenob Im/Po) 1 each MISCELLANE ONCE PRN; Protocol PRN Reason: Consult order Phenobarbital (Phenobarbital 15 Mg Tablet) 45 mg PO BID EDWIN; Protocol Stop: 02/11/23 21:01 Last Admin: 02/11/23 09:54 Dose: 45 mg Phenobarbital (Phenobarbital 15 Mg Tablet) 15 mg PO BID EDWIN; Protocol Stop: 02/13/23 21:01 Phenobarbital (Phenobarbital 15 Mg Tablet) 15 mg PO DAILY [facility]; Protocol Stop: 02/15/23 09:01 Potassium Chloride (Potassium Chloride Er 10 Meq Tablet.Er) 10 meq PO DAILY [facility] Last Admin: 02/11/23 09:53 Dose: 10 meq Sodium Chloride (0.9 % Sodium Chloride Flush 3 Ml Syringe) 3 ml IVFLUSH QSHIFT [facility] Last Admin: 02/11/23 09:54 Dose: 3 ml Spironolactone (Spironolactone 25 Mg Tablet) 25 mg PO DAILY [facility]; Protocol Last Admin: 02/09/23 08:08 Dose: Not Given Thiamine HCl (Thiamine Hcl 100 Mg Tablet) 100 mg PO DAILY [facility] Last Admin: 02/11/23 09:54 Dose: 100 mg Home Medications Medication Instructions Recorded Confirmed Last Taken Type folic acid 1 mg tablet 1 mg PO DAILY 0302/08/23 10/06/22 History losartan 25 mg tablet 25 mg PO Q OTHER DAY 09/16/22 02/08/23 10/06/22 History potassium chloride 10 mEq 10 meq PO DAILY 09/16/22 02/08/23 10/06/22 History tablet,extended release spironolactone 25 mg tablet 25 mg PO DAILY 09/16/22 02/08/23 10/06/22 History thiamine mononitrate (vit B1) 100 100 mg PO DAILY 09/16/22 02/08/23 10/06/22 History mg tablet (Vitamin B-1 (mononitrate)) digoxin 125 mcg (0.125 mg) tablet 125 mcg PO DAILY 12/13/22 02/08/23 Unknown History metoprolol succinate 50 mg 50 mg PO DAILY 12/13/22 02/08/23 Unknown History tablet,extended release 24 hr Physical Exam Vital Signs: Last Vital Signs Temp 97.1 F 02/11/23 07:32 Pulse 110 H 02/11/23 07:32 Resp 20 02/11/23 07:32 BP 110/69 02/11/23 07:32 Pulse Ox 97 02/11/23 07:32 O2 Del Method Room Air 02/11/23 07:32 O2 Flow Rate 2 02/09/23 03:05 Oxygen Flow Rate 2 02/08/23 18:12 BMI result Body Mass Index 32.1 Const Other: Slightly anxious appearing Orientation/consciousness: patient oriented x3 and Other orientation findings ( oriented) Eyes Eyelids: Yes eyelids normal Sclerae: sclerae normal Neck Neck: Yes supple Resp Effort & Inspection: no audible wheezes Auscultation: clear to auscultation bilaterally Cardio Rhythm: regular rhythm Heart sounds: no gallops GI Palpation (GI): nontender, no guarding and not rigid Auscultation: normal bowel sounds Neuro General: patient oriented x3 Cognition (Neuro): normal cognition Extrem General: Yes edema ( 2+ bilateral) Results Lab Results 02/09/23 07:20 02/11/23 07:28 Lab results: Chemistry 02/08/23 02/08/23 02/09/23 18:49 18:49 07:20 Sodium 133 L 131 L Potassium 2.9 L D 3.3 Carbon Dioxide 27 23 BUN 22 H 21 H Creatinine 1.33 1.12 Calcium 8.6 D 8.3 L Phosphorus 3.0 02/10/23 02/11/23 09:33 07:28 Sodium 129 L 129 L Potassium 3.4 3.1 L Carbon Dioxide 27 27 BUN 23 H 23 H Creatinine 1.16 1.14 Calcium 8.5 8.1 L Phosphorus Hematology 02/08/23 02/09/23 18:49 07:20 WBC 9.1 8.5 Hgb 12.5 L 11.8 L Plt Count 220 D 179 Urinalysis 02/08/23 18:45 Urine Color Dark Yellow Urine Appearance Clear Urine pH 6.0 Ur Specific [place] 1.015 Urine Protein 100 (2+) H Urine Glucose (UA) 250 H Urine Ketones Negative Urine Blood Negative Urine Nitrite Negative Ur Leukocyte Esterase Negative Urine RBC 0-2 Urine WBC 0-5 Ur Squamous Epith Cells 0-2 Hyaline Casts 0-2 Urine Studies 02/10/23 17:45 Urine Osmolality 267 L Assessment and Plan (1) Acute on chronic congestive heart failure: Status: Acute (2) Pulmonary embolism: Status: Acute Plan 57-year-old male with heart failure with reduced ejection fraction AFib, comes into the hospital shortness of breath found to have acute PE Bilateral pulmonary emboli- acute - with hypoxia,patient noncompliant with Eliquis, due to forgetfulness continue Lovenox full dose discussed extensively the need to be compliant with his anticoagulants otherwise he runs a high risk of recurrent PE as well as stroke Ch. AFib with RVR- secondary to CHF exacerbation as well as PE continue digoxin amiodarone, hold metoprolol ? boderline bp. alcohol abuse Hyponatremia: Multifactorial He has been drinking excessive hypotonic fluids especially ice tea He was also on spironolactone which could decrease free water clearance. Recommendation. Hold spironolactone. Keep Lasix. The loop diuretic should increase free water clearance and thereby correct hyponatremia Restrict oral free water intake. No indication for hypertonic saline or urea powder at this time. Monitor serum sodium every 8-12 hours for now. Goal is to maintain serum sodium more than 130 millimoles. Renal function is close to baseline. We will follow along with the team. Thank you Time Spent With Patient Time: Total time managing care of this patient today ____ minutes. Procedures Date of Service Date of Service: 02/11/23
[2023-02-11 11:28] VITALS: BP 142/83; PULSE 108; RESP 20; TEMP 36.2; O2SAT 96
--- NOTE | 2023-02-11 12:59 | P.EN_ITS ---
Event Note Date of Service: 02/11/23 Event Note: Addiction consult placed Patient seen by director of strategic partnerships Please see their note for additional details No additional followup at this time Time Spent With Patient Time: Total time managing care of this patient today ____ minutes.
[2023-02-11] MEDS: Furosemide 40 MG TABLET PO (13:41)
--- NOTE | 2023-02-11 14:20 | P.DS_ITS ---
DS: Providers Provider Date of Service: 02/11/23 Date of admission: 02/08/23 23:58 Date of discharge: 02/11/23 Primary care physician: Jerri Bennett MD Consults: 02/09/23 07:46 Consult to Cardiology Routine Consulting Provider: [facility] [place] Cardiovascular Services Reason for consultation: chf ,pulm embolism Has provider been notified: No 02/09/23 08:13 Consult to Pulmonology Routine Consulting Provider: [facility] [place] Pulmonology Services Reason for consultation: pulonary embolism Has provider been notified: No 02/10/23 17:25 Consult to Nephrology Routine Consulting Provider: Nikos Lundberg Reason for consultation: hyponatremia Has provider been notified: No 02/11/23 08:58 Addiction Medicine Routine Consulting Provider: Addiction Covering Reason for consultation: Alcohol use Has provider been notified: No Attending physician on discharge: Keon Bennett Discharging clinician: Keon Bennett DS: Diagnosis Discharge Diagnosis (1) Acute on chronic congestive heart failure: Status: Acute (2) Pulmonary embolism: Status: Acute DS: Summary Hospital Course Hospital Course: 57-year-old male with past medical history of AFib, cardiomyopathy, chronic heart failure with reduced ejection fraction, hypertension, alcohol abuse, hypertension, comes into the hospital with complaints of dizziness, and shortness of breath.? Patient reports that he started having shortness of breath for several months but worsened today.? He was standing at work when all of a sudden he started feeling lightheaded and had increased shortness of breath.? He denies losing consciousness, reports lower extremity swelling for the past several weeks to 1 month, has orthopnea, PND, denies any chest pain, no palpitations, no abdominal pain nausea or vomiting, no diarrhea constipation, no urinary symptoms.? No numbness tingling or weakness.? No headache or change in vision. Of note patient does state that he misses his Eliquis and his other medications frequently as he forgets On arrival to the ED patient was found to have a heart rate in the 140s AFib with RVR, satting 92% on 2 L of oxygen His labs are significant for WBC count of 9.1, hemoglobin of 12.5, hematocrit 36.8, INR 1.2, sodium 133, potassium 2.9, chloride 93, lactic acid of 2.3, AST of 422, ALT of to 28, alk-phos of 328, troponin of 45, BNP of 2783, digoxin level less than 0.2, UA positive for barbiturates, Reports drinks alcohol daily, last drink was 2 days ago.? Denies history of withdrawals Lower extremity venous duplex negative for DVT Chest CT angiogram shows small pulmonary emboli in the right upper lobe and left lower lobe, areas of consolidation right upper lobe and right lower lobe, some ascites, Abdominal pelvic CT shows bilateral lower lobe atelectasis versus small infiltrate, enlarged fatty liver, Patient patient given multiple doses of rate control medications with heart rate improving, started on Lasix and will be admitted for further management. Hospital course: Patient was admitted for sob-further workup escalona fine to have pulmonary embolism bilateral, also found to have acute CHF exacerbation and AFib with RVR: Patient was started on IV diuretic for CHF, also initially received IV diltiazem for AFib(irregular heartbeat) subsequently patient says feel better with amiodarone and digoxin(home medications), metoprolol adjusted to 25 mg daily due to borderline blood pressure. Patient was diuresed with IV Lasix drip for CHF-his leg edema and the shortness of breath seems to be improved significantly, seen by Cardiology-switched his IV Lasix to p.o.: Adjusted Lasix dose is 40 mg by mouth twice daily. CHF education given in detail. Advised to monitor weight-if weight gain 2 lb or more per week then will need Lasix dose adjustment outpatient. Cardiology may arrange their own appointment. Alcohol withdrawal treated with phenobarb protocol, seems improved. Elevated liver function test: Possibly related to combination of CHF and alcohol use-improving with treatment of CHF and abstaining from alcohol, strongly advised to abstain from alcohol, monitor liver function test out patiently. Further management outpatient Strongly advised to abstain from alcohol. Pulmonary emboli: Bilateral-Small pulmonary emboli in the right upper lobe and left lower lobe. Initially was started on Lovenox, further discussed with pulmonary-recommended to continue current Eliquis dose upon discharge, and strongly advised to be compliant with Eliquis. Monitor BMP and LFTs out patiently in 1 week due to above-mentioned issues. Patient was strongly advised to follow-up with PCP. Above management discussed with the patient in detail length she understand and in agreement with the above plan, time spent 50 minutes and 50% time spent on counseling. Time Spent with Patient Time attestation: Total time managing care of this patient today ____ minutes. Discharge coordination time: Greater than 30 minutes Quality: Safe Use of Opioids Does Pt have an Active Cancer Diagnosis on the Problem List?: No Quality: Stroke Does the patient have a stroke diagnosis?: No Physical Exam Vital Signs: Vital Signs: Last Vital Signs Temp 97.1 F 02/11/23 11:28 Pulse 108 H 02/11/23 11:28 Resp 20 02/11/23 11:28 BP 142/83 H 02/11/23 11:28 Pulse Ox 96 02/11/23 11:28 O2 Del Method Room Air 02/11/23 11:28 O2 Flow Rate 2 02/09/23 03:05 Oxygen Flow Rate 2 02/08/23 18:12 BMI result Body Mass Index 32.1 Appearance: Alert.? Oriented X3.? not in distress.?. cvs: irregular rythem, [id number] . res: clear to auscultation ,no rhonchii or wheezing abd: no rebound or guarding ,nt, bs present. ext pulses present , no cyanosis. neuro: axo3 , nonfocal. DS: Data Data Completed and Pending Completed studies during hospitalization [Text1]: Procedures Assistance with Respiratory Ventilation, Less than 24 Consecutive Hours, Continuous Positive Airway Pressure (12/22/22) Detoxification Services for Substance Abuse Treatment (12/13/22) Insertion of Endotracheal Airway into Trachea, Via Natural or Artificial Opening (11/11/21) Respiratory Ventilation, 24-96 Consecutive Hours (11/11/21) Congregational of Cardiac Rhythm, Single (11/11/21) Labs on day of discharge: Laboratory Results - last 24 hr 02/10/23 02/10/23 02/10/23 17:38 17:45 17:45 Sodium Potassium Chloride Carbon Dioxide Anion Gap BUN Creatinine Estim Creat Clear Calc Estimated GFR Random Glucose Osmolality 265 L Calcium B-Natriuretic Peptide Urine Osmolality 267 L Ur Random Sodium 51.0 Ur Random Potassium 33.2 Ur Random Chloride 76.0 02/11/23 02/11/23 07:28 09:27 Sodium 129 L Potassium 3.1 L Chloride 91 L Carbon Dioxide 27 Anion Gap 14 BUN 23 H Creatinine 1.14 Estim Creat Clear Calc 87.4 Estimated GFR > 60 Random Glucose 96 Osmolality Calcium 8.1 L B-Natriuretic Peptide 3729 H Urine Osmolality Ur Random Sodium Ur Random Potassium Ur Random Chloride Preliminary micro results at discharge 02/08/23 23:55 Blood Culture - Preliminary Blood - Venous No growth after 48 hours. 02/08/23 23:53 Blood Culture - Preliminary Blood - Venous No growth after 48 hours. Imaging Chest x-ray: Radiologist's impression: ITS Impressions Chest X-Ray 02/08/23 18:38 IMPRESSION: Stable enlargement of the cardiac silhouette. Atelectasis or small infiltrate in the right lateral mid lung. Abdomen/Pelvis CT 02/08/23 19:59 IMPRESSION: New bilateral lower lobe atelectasis or small infiltrates. . New wall thickening of the second and third portions of the duodenum and significant stranding of the surrounding fat. Question wall thickening of the cecum and proximal right colon as well. Increasing small amount of ascites. Diverticulosis. No evidence of diverticulitis. Enlarged fatty liver. Known liver lesion not well appreciated without IV contrast. New fluid around the gallbladder. The gallbladder is normal in size and no gallstones are seen by CT. Evolving right renal infarct. Fleischner guidelines were followed. Chest CTA 02/08/23 22:20 IMPRESSION: 1. Small pulmonary emboli in the right upper lobe and left lower lobe. 2. Areas of consolidation in the right upper lobe and right lower lobe. 3. Tiny amount of ascites. 4. Other incidental findings as described above. VTE: positive. Venous Duplex 02/09/23 00:55 IMPRESSION: No DVT demonstrated in the lower extremity. Discharge Plan Discharge Anticipated Discharge Date/Time: 02/11/23 14:01 Patient Disposition: Home, Self-Care Discharge Diagnosis: Alcohol withdrawal, AFib, CHF. Referrals: Jerri Bennett MD [Primary Care Provider] - 1 Week Discharge Medications: New magnesium oxide 400 mg (241.3 mg magnesium) Tablet 800 mg PO DAILY Qty: 10 0RF metoprolol succinate [Toprol XL] 25 mg tablet extended release 24 hr 25 mg PO DAILY Qty: 30 0RF Continued amiodarone 200 mg tablet 200 mg PO DAILY 90 Days Qty: 90 1RF Eliquis 5 mg tablet 5 mg PO BID Qty: 180 1RF Jardiance 10 mg tablet 10 mg PO DAILY Qty: 30 1RF digoxin 125 mcg (0.125 mg) tablet 125 mcg PO DAILY thiamine mononitrate (vit B1) [Vitamin B-1 (mononitrate)] 100 mg tablet 100 mg PO DAILY folic acid 1 mg tablet 1 mg PO DAILY spironolactone 25 mg tablet 25 mg PO DAILY potassium chloride 10 mEq tablet extended release 10 meq PO DAILY Changed furosemide 40 mg tablet 40 mg PO BID 90 Days Qty: 90 1RF Protocol: Hold for SBP< HOLD for SBP < : 90 Held losartan 25 mg tablet 25 mg PO Q OTHER DAY Hold Instructions: Resume on 03/02/23. hold until seen by pcp Discontinued metoprolol succinate 50 mg tablet extended release 24 hr 50 mg PO DAILY Discharge Orders: Discharge Order (Routine); Ordered 02/11/23 Ordered By: Keon Bennett Diet: Advance to usual diet Activity on Discharge: As tolerated Stand Alone Forms: Patient Portal Discharge page, Work/School Release Care Plan Goals: Patient was admitted for sob-further workup escalona fine to have pulmonary embolism bilateral, also found to have acute CHF exacerbation and AFib with RVR: Patient was started on IV diuretic for CHF, also initially received IV diltiazem for AFib(irregular heartbeat) subsequently patient says feel better with amiodarone and digoxin(home medications), metoprolol adjusted to 25 mg daily due to borderline blood pressure. Patient was diuresed with IV Lasix drip for CHF-his leg edema and the shortness of breath seems to be improved significantly, seen by Cardiology-switched his IV Lasix to p.o.: Adjusted Lasix dose is 40 mg by mouth twice daily. CHF education given in detail. Advised to monitor weight-if weight gain 2 lb or more per week then will need Lasix dose adjustment outpatient. Cardiology may arrange their own appointment. Alcohol withdrawal treated with phenobarb protocol, seems improved. Elevated liver function test: Possibly related to combination of CHF and alcohol use-improving with treatment of CHF and abstaining from alcohol, strongly advised to abstain from alcohol, monitor liver function test out patiently. Further management outpatient Strongly advised to abstain from alcohol. Pulmonary emboli: Bilateral-Small pulmonary emboli in the right upper lobe and left lower lobe. Initially was started on Lovenox, further discussed with pulmonary-recommended to continue current Eliquis dose upon discharge, and strongly advised to be compliant with Eliquis. Monitor BMP and LFTs out patiently in 1 week due to above-mentioned issues. Patient was strongly advised to follow-up with PCP. Health Concerns: As above. Plan of Treatment: As above. Assessment: As above.
--- NOTE | 2023-02-11 15:57 | MHC.RECOVRN ---
This racebook writer met with patient after receiving addiction consult, pt presented to ED with CHF, Afib. Pt resting, sitting up in bed. Pt reports drinking on Wednesday/Wednesday nights. Pt reports has 1/4 of skinny bottle on either Wednesday/Wednesday. Pt reports no drinking during the week. Pt denies hx of withdrawal symptoms. Pt reports had trialed Naltrexone in the past for 10 days, did not find it helpful. Pt declined addiction/recovery supports. Harm reduction reviewed, pt verbalized understanding. Pt agreeable to review resources at bedside and encouraged to call Addiction/Recovery Team with any questions or concerns. Reviewed findings with Provider Andressa Jones.
--- NOTE | 2023-03-12 09:02 | MHC.CM.PN ---
Home self care is the goal; CM has initiated and will follow for dc planning. Patient lives alone and is functionally independent. Patient's Sister/Lucy is the HCP and the PCP is Dr. Jerri Bennett.
== END 2023-02-11 15:00 | disposition home or self-care (01) | DRG 134 ==
LOC: HO.ED 23:34 → HO.EDOVER 02-09 00:14 → HO.IMC 02-09 00:42
PROVIDERS: Physician Assistant; Admitting Provider Internal Medicine; Emergency Provider Internal Medicine; PCP Internal Medicine; Visit Provider Internal Medicine
DX: I26.99 Other pulmonary embolism without acute cor pulmonale (principal); I50.23 Acute on chronic systolic (congestive) heart failure; E87.21 Acute metabolic acidosis; E87.1 Hypo-osmolality and hyponatremia; I42.6 Alcoholic cardiomyopathy; E87.6 Hypokalemia; F10.239 Alcohol dependence with withdrawal, unspecified; I48.21 Permanent atrial fibrillation; T45.516A Underdosing of anticoagulants, initial encounter; I11.0 Hypertensive heart disease with heart failure; Y90.6 Blood alcohol level of 120-199 mg/100 ml; Z20.822 Contact with and (suspected) exposure to COVID-19; Z79.01 Long term (current) use of anticoagulants; Z79.899 Other long term (current) drug therapy
CPT/HCPCS: 0241U; 36415; 71045; 71275; 74176; 80048; 80053; 80162; 80307; 81001; 82436; 83605; 83690; 83735; 83880; 83930; 83935; 84100; 84133; 84300; 84484; 85025; 85610; 85730; 87040; 93005; 93970; 99284; J0456; J0696; J1650; J1940; J2560; P9047; Q9957; Q9967

== ENCOUNTER → 2023-02-08 23:58 | Outpatient (BNV) | payer OTHER, SELFPAY | PROVIDERS: Admitting Provider Internal Medicine; Emergency Provider Internal Medicine; Visit Provider Internal Medicine Pulmonary Disease | DX: I26.99 Other pulmonary embolism without acute cor pulmonale (principal); I50.23 Acute on chronic systolic (congestive) heart failure; Z91.148 Patient's other noncompliance with medication regimen for other reason; I48.91 Unspecified atrial fibrillation | CPT/HCPCS: 99232 ==

== ENCOUNTER → 2023-02-08 23:58 | Outpatient (BNV) | payer OTHER, SELFPAY | PROVIDERS: Admitting Provider Internal Medicine; Emergency Provider Internal Medicine; Visit Provider Internal Medicine | DX: I50.9 Heart failure, unspecified (principal); I26.99 Other pulmonary embolism without acute cor pulmonale | CPT/HCPCS: 99223; 99232; 99239; 99499 ==

== ENCOUNTER → 2023-02-08 23:58 | Outpatient (BNV) | payer OTHER, SELFPAY | PROVIDERS: Admitting Provider Internal Medicine; Emergency Provider Internal Medicine; Visit Provider Internal Medicine Cardiovascular Disease | DX: I50.9 Heart failure, unspecified (principal) | CPT/HCPCS: 93010; 99223; 99232 ==

== ENCOUNTER 2023-02-26 10:05 | Emergency (ER) | payer OTHER, SELFPAY ==
[2023-02-26 10:17] VITALS: BP 125/81; PULSE 126; RESP 18; TEMP 36.9; O2SAT 96; BMI 28.7
[2023-02-26 11:14] LABS: MANUAL DIFF FLAG NO
[2023-02-26 11:16] LABS: Basophils Absolute Auto 0.1 X10*3/uL (0.0-0.2); Basophils Percent Auto 0.8 % (0-2); Eosinophils Percent Auto 0.2 % (0-4); Hematocrit 36.3 % (42.0-52.0); Hemoglobin 12.4 g/dl (14.0-18.0); Imm Gran Abs Auto 0.02 X10*3/uL (0.00-0.03); Imm Gran Pct Auto 0.3 % (0.0-0.4); Lymphocytes Absolute Auto 0.8 X10*3/uL (1.2-4.9); Lymphocytes Percent Auto 12.5 % (20-40); Mean Corpuscular HGB Conc 34.2 g/dl (31.0-36.0); Mean Platelet Volume 10.4 fL (9.4-12.4); Monocytes Absolute Auto 0.7 X10*3/uL (0.1-1.2); Monocytes Percent Auto 10.3 % (2-11); Neutrophils Absolute Auto 4.8 x10*3/uL (2.0-8.3); Neutrophils Percent Auto 75.9 % (45-73); Platelet Count 174 X10*3/uL (160-400); Red Blood Count 3.18 X10*6/uL (4.60-5.80); Red Cell Distribution Width 17.2 % (11.0-16.0); White Blood Count 6.3 X10*3/uL (4.8-10.8)
[2023-02-26 11:17] LABS: Mean Corpuscular Volume 114.2 fL (80.0-98.0)
[2023-02-26 11:29] LABS: Alanine Aminotransferase 58 U/L (0-40); Albumin Level 3.7 g/dL (3.5-5.0); Alkaline Phosphatase 196 U/L (39-117); Anion Gap 16 (12-20); Aspartate Amino Transferase 61 U/L (5-37); Bilirubin Total 2.1 mg/dL (0.0-1.0); Blood Urea Nitrogen 22 mg/dL (9-16); Calcium 8.9 mg/dL (8.4-10.2); Carbon Dioxide 28 mmol/L (22-29); Chloride 95 mmol/L (96-108); Creatinine Clr Calc Pharmacy 72.1; Estimated Glomerular Filt Rate 57; Ethanol < 10 mg/dL; Glucose Random 141 mg/dL (60-115); Potassium 3.7 mmol/L (3.3-5.1); Sodium 135 mmol/L (135-145); Total Protein 6.9 g/dL (6.5-8.0)
[2023-02-26 11:34] LABS: B Type Natriuretic Peptide 3382 pg/mL (<100)
[2023-02-26 11:36] LABS: Troponin-I High Sensitivity 29.6 ng/L (<3.5-35.0)
[2023-02-26 12:56] VITALS: BP 134/97; PULSE 142; RESP 18; TEMP 36.7; O2SAT 98
--- NOTE | 2023-02-26 13:01 | PC.NURSE ---
pt reports bilateral leg swelling from mid thigh down, 1 week-10 days. leg pain upon wakening, pt reports no change to medication or activity. walking slightly slower than usual per pt. movement decreases the stiffness pain but not the swelling. pt reports SOB rest and sleeping. breathing looks even and unlabored.
--- NOTE | 2023-02-26 13:13 | ED.GENADULT ---
HPI - General Adult General Chief complaint: General Medical Stated complaint: Edema Both Legs & Hands Time Seen by Provider: 02/26/23 13:12 Source: patient and family (Mother, Alondra) Mode of arrival: ambulatory Limitations: no limitations History of Present Illness HPI narrative: 57-year-old male with past medical history of AFib, cardiomyopathy, chronic heart failure with reduced ejection fraction of 15% (10/07/2022), hypertension, alcohol abuse, hypertension, comes into the hospital with complaints of increased swelling his lower extremities. The patient's mother was concerned that the patient's legs were getting significantly more swollen and then in the past he has required hospitalization when this happened therefore she insisted that the patient come to the emergency department for evaluation. The patient denied fever, chills, rhinorrhea, sore throat, cough, chest pain, shortness of breath. He does have dyspnea on exertion but he believes that this is consistent with his baseline. He also states that he has orthopnea and again this is consistent with his baseline. He has not had any paroxysmal nocturnal dyspnea. The patient does take furosemide 40 mg once a day and spironolactone 25 mg once a day. He states he has been compliant with all his medications. Patient was recently hospitalized on 02/09/2023 until 02/11/2023 for acute on chronic congestive heart failure, acute pulmonary embolism and right lower lobe pneumonia. He was also hypokalemic at that time. Related Data Home Medications Medication Instructions Recorded Confirmed folic acid 1 mg tablet 1 mg PO DAILY 09/16/22 02/08/23 losartan 25 mg tablet 25 mg PO Q OTHER DAY 09/16/22 02/08/23 potassium chloride 10 mEq 10 meq PO DAILY 09/16/22 02/08/23 tablet,extended release spironolactone 25 mg tablet 25 mg PO DAILY 09/16/22 02/08/23 thiamine mononitrate (vit B1) 100 100 mg PO DAILY 09/16/22 02/08/23 mg tablet (Vitamin B-1 (mononitrate)) digoxin 125 mcg (0.125 mg) tablet 125 mcg PO DAILY 12/13/22 02/08/23 Previous Rx's Medication Instructions Recorded amiodarone 200 mg tablet 200 mg PO DAILY 90 days #90 tabs 12/31/21 apixaban 5 mg tablet (Eliquis) 5 mg PO BID #180 tabs 12/31/21 empagliflozin 10 mg tablet 10 mg PO DAILY #30 tabs 11/18/22 (Jardiance) furosemide 40 mg tablet 40 mg PO BID 90 days #90 tabs 02/11/23 magnesium oxide 400 mg (241.3 mg 800 mg PO DAILY #10 tabs 02/11/23 magnesium) tablet metoprolol succinate 25 mg 25 mg PO DAILY #30 tabs 02/11/23 tablet,extended release 24 hr (Toprol XL) furosemide 80 mg tablet (Lasix) 80 mg PO DAILY 2 weeks #14 tabs 02/26/23 potassium chloride 10 mEq 10 meq PO DAILY #14 tabs 02/26/23 tablet,extended release(part/cryst) Allergies Allergy/AdvReac Type Severity Reaction Status Date / Time No Known Allergies Allergy Verified 02/08/23 18:23 [No Known Allergies*] Review of Systems Review of Systems: Yes all other systems are reviewed and are negative [facility] Past Medical History [facility] Narrative: Social history: Patient denies tobacco use. He does drink alcohol at least once a week 2-3 vodka drinks, he denies drug use. Medical History Alcohol dependence with withdrawal Alcoholic hepatitis Atrial fibrillation with rapid ventricular response Cardiomyopathy Chronic HFrEF (heart failure with reduced ejection fraction) HTN (hypertension) Surgical History No pertinent past surgical history Family History Family History Father CAD (coronary artery disease) Mother Atrial fibrillation Social History Social History Household Members: None Housing: Apartment Do you presently have visiting nurse or other home services: No Unable to assess alcohol history related to: Unable to respond Alcohol intake: current Alcohol intake frequency: holidays/special occasions only Alcohol type: hard liquor Patient Tobacco Use Status: Never used Tobacco Smoked in Last 30 Days: No Use of substances other than those prescribed or required for medical reasons: No Advance Directives: Yes Advance Directives on File: Yes Advance Directives Date on File: 02/12/23 service: No Current occupational status: unemployed Physical Exam ED Vital Signs: Vital Signs - 24 hr 02/26/23 10:17 02/26/23 12:56 Temperature 98.5 F 98.0 F Pulse Rate 126 H 142 H Respiratory Rate 18 18 Blood Pressure 125/81 134/97 H Pulse Oximetry 96 98 Oxygen Delivery Method Room Air Room Air BMI result Body Mass Index 28.7 Vital signs were normal Exam: General: Awake, alert in no distress Head: Normocephalic, atraumatic EENT: PERRL, Lids normal, sclera normal, conjunctiva normal, nose normal , ears normal, throat without erythema or exudates Neck: Supple, no adenopathy, trachea midline and nontender Lung: breath sounds symmetric, no wheezing, rales or rhonchi Chest: symmetric movement, nontender Heart: regular rate and rhythm, normal S1, S2 no murmurs or rubs Abdomen: soft, non-tender, nondistended, normal bowel sounds Back: no vertebral tenderness, no CVAT Extremities: no deformities, 2 to 3+ pitting edema, bilaterally symmetric, no erythema or increased warmth Skin: no rashes, no lesion, normal color and warmth Neuro: Awake, alert, oriented, normal speech, cranial nerves intact, moves all extremities symmetrically Psych: Pleasant, cooperative Medical Decision Making Medical Decision Making MDM Narrative: [id number]-old male with past medical history of AFib, cardiomyopathy, chronic heart failure with reduced ejection fraction, hypertension, alcohol abuse, hypertension, comes into the hospital with complaints of bilateral peripheral edema with no other change in his baseline. Patient's vital signs were normal . His physical examination did reveal bilaterally symmetric 2 to 3+ pitting edema. I ordered the following evaluation: CBC, CMP, troponin, BNP, EKG. 14:16: Patient's laboratory evaluation revealed an elevated BNP of 3382-this is chronic. Patient had elevated AST ALT and alk-phos again this is chronic most likely secondary to his alcohol use disorder. High sensitive troponin I was detectable at 29.6 but not elevated, he has had higher values in the past. This time I do not think patient is congestive heart failure and I believe that he is fluid overloaded possibly from drinking too much fluid daily and possibly from not being compliant with his furosemide. Patient's Lasix (furosemide) was increased from 40 mg once a day to 80 mg once a day. I also added kg or 10 mEq daily to his regimen. Patient is to stay on this for 2 weeks. During this time he was advised to weigh himself daily, and to restrict his fluid intake to half the amount of urine output per day. He was given printed and verbal instructions discharged home Differential Diagnosis Differential Diagnoses: The differential diagnosis associated with the presentation includes Differential diagnosis includes but is not limited to congestive heart failure , myocardial infarction, myocardial ischemia, fluid overload, renal failure, liver failure, electrolyte abnormalities, anemia Admission/Observation Consideration of admission/observation: Escalation of care including admission/observation considered Lab Data MDM Lab Attestation statement: I reviewed the patient's lab results. My interpretation patient's laboratory evaluation is as follows: CBC was normal. BUN elevated 22. Chloride low 95, glucose elevated 141. AST, ALT and alkaline phosphatase elevated 61, 58 and 196. High sensitive troponin I was detectable but not elevated at 29.6. 02/26/23 11:08 02/26/23 11:08 Labs: Lab Results 02/26/23 02/26/23 02/26/23 Range/Units 11:08 11:08 11:08 WBC 6.3 (4.8-10.8) X10*3/uL RBC 3.18 L (4.60-5.80) X10*6/uL Hgb 12.4 L (14.0-18.0) g/dl Hct 36.3 L (42.0-52.0) % MCV 114.2 H (80.0-98.0) fL MCH 39.0 H (27.0-33.0) pg MCHC 34.2 (31.0-36.0) g/dl RDW 17.2 H (11.0-16.0) % Plt Count 174 (160-400) X10*3/uL MPV 10.4 (9.4-12.4) fL Immature Gran % (Auto) 0.3 (0.0-0.4) % Neut % (Auto) 75.9 H (45-73) % Lymph % (Auto) 12.5 L (20-40) % Marathon % (Auto) 10.3 (2-11) % Eos % (Auto) 0.2 (0-4) % Baso % (Auto) 0.8 (0-2) % Lymph # (Auto) 0.8 L (1.2-4.9) X10*3/uL Marathon # (Auto) 0.7 (0.1-1.2) X10*3/uL Eos # (Auto) 0.0 (0.0-0.4) X10*3/uL Baso # (Auto) 0.1 (0.0-0.2) X10*3/uL Abs Immat Gran (auto) 0.02 (0.00-0.03) X10*3/uL Absolute Neuts (auto) 4.8 (2.0-8.3) x10*3/uL Absolute Nucleated RBC 0.000 (0.0-0.012) X10*3/uL Nucleated RBC % (auto) 0.0 (0.0-0.2) /100WBC Sodium 135 (135-145) mmol/L Potassium 3.7 (3.3-5.1) mmol/L Chloride 95 L (96-108) mmol/L Carbon Dioxide 28 (22-29) mmol/L Anion Gap 16 (12-20) BUN 22 H (9-16) mg/dL Creatinine 1.31 (0.5-1.4) mg/dL Estim Creat Clear Calc 72.1 Estimated GFR 57 Random Glucose 141 H (60-115) mg/dL Calcium 8.9 D (8.4-10.2) mg/dL Total Bilirubin 2.1 H (0.0-1.0) mg/dL AST 61 H (5-37) U/L ALT 58 H (0-40) U/L Alkaline Phosphatase 196 H (39-117) U/L Troponin I High Sens 29.6 (<3.5-35.0) ng/L B-Natriuretic Peptide (<100) pg/mL Total Protein 6.9 (6.5-8.0) g/dL Albumin 3.7 (3.5-5.0) g/dL Urine Color Urine Appearance Urine pH (5.0-9.0) Ur Specific Thomson (1.005-1.025) Urine Protein (Neg-Trace) mg/dL Urine Glucose (UA) (Negative) mg/dL Urine Ketones (Negative) mg/dL Urine Blood (Negative) Urine Nitrite (Negative) Ur Leukocyte Esterase (Negative) Ethyl Alcohol < 10 mg/dL 02/26/23 02/26/23 Range/Units 11:08 13:10 WBC (4.8-10.8) X10*3/uL RBC (4.60-5.80) X10*6/uL Hgb (14.0-18.0) g/dl Hct (42.0-52.0) % MCV (80.0-98.0) fL MCH (27.0-33.0) pg MCHC (31.0-36.0) g/dl RDW (11.0-16.0) % Plt Count (160-400) X10*3/uL MPV (9.4-12.4) fL Immature Gran % (Auto) (0.0-0.4) % Neut % (Auto) (45-73) % Lymph % (Auto) (20-40) % Marathon % (Auto) (2-11) % Eos % (Auto) (0-4) % Baso % (Auto) (0-2) % Lymph # (Auto) (1.2-4.9) X10*3/uL Marathon # (Auto) (0.1-1.2) X10*3/uL Eos # (Auto) (0.0-0.4) X10*3/uL Baso # (Auto) (0.0-0.2) X10*3/uL Abs Immat Gran (auto) (0.00-0.03) X10*3/uL Absolute Neuts (auto) (2.0-8.3) x10*3/uL Absolute Nucleated RBC (0.0-0.012) X10*3/uL Nucleated RBC % (auto) (0.0-0.2) /100WBC Sodium (135-145) mmol/L Potassium (3.3-5.1) mmol/L Chloride (96-108) mmol/L Carbon Dioxide (22-29) mmol/L Anion Gap (12-20) BUN (9-16) mg/dL Creatinine (0.5-1.4) mg/dL Estim Creat Clear Calc Estimated GFR Random Glucose (60-115) mg/dL Calcium (8.4-10.2) mg/dL Total Bilirubin (0.0-1.0) mg/dL AST (5-37) U/L ALT (0-40) U/L Alkaline Phosphatase (39-117) U/L Troponin I High Sens (<3.5-35.0) ng/L B-Natriuretic Peptide 3382 H (<100) pg/mL Total Protein (6.5-8.0) g/dL Albumin (3.5-5.0) g/dL Urine Color Yellow Urine Appearance Clear Urine pH 7.5 (5.0-9.0) Ur Specific Thomson 1.010 (1.005-1.025) Urine Protein Negative (Neg-Trace) mg/dL Urine Glucose (UA) 500 H (Negative) mg/dL Urine Ketones Negative (Negative) mg/dL Urine Blood Negative (Negative) Urine Nitrite Negative (Negative) Ur Leukocyte Esterase Negative (Negative) Ethyl Alcohol mg/dL Discharge Plan Discharge Clinical Impression: Peripheral edema, Cardiomyopathy Patient Disposition: Home, Self-Care Additional Instructions: I am increasing your Lasix (furosemide) to 80 mg in the morning for 2 weeks. After 2 weeks go back to Lasix 40mg (furosemide) once a day. While your taking this higher dose of Lasix I am also starting you on potassium chloride (K-dur) 10 mEq once a day for 2 weeks. Weigh yourself daily and you should lose anywhere from 5-10 lb in fluid weight over the next 2 weeks. While you are on this higher dose of Lasix, you need to measure how much urine you put out a day and only drink half of this amount daily. For example, if you put out 2 L of urine per day then you can drink 1 L of fluid. The goal is to get you to pee out more fluid in you drink over the next 2 weeks and this will help you lose fluid weight. Stay on all of your medications do not stop any these medications unless instructed by your doctor. Follow-up with your doctor in 2 days. Please return to the emergency department if your symptoms get worse or if you develop any symptoms that are concerning to you. You need to stop drinking alcohol, alcohol make your heart disease worsened and makes your atrial fibrillation worse. Prescriptions: New furosemide [Lasix] 80 mg tablet 80 mg PO DAILY 14 Days Qty: 14 0RF potassium chloride 10 mEq tablet,ER particles/crystals 10 meq PO DAILY Qty: 14 0RF No Action amiodarone 200 mg tablet 200 mg PO DAILY 90 Days Qty: 90 1RF Eliquis 5 mg tablet 5 mg PO BID Qty: 180 1RF Jardiance 10 mg tablet 10 mg PO DAILY Qty: 30 1RF digoxin 125 mcg (0.125 mg) tablet 125 mcg PO DAILY magnesium oxide 400 mg (241.3 mg magnesium) Tablet 800 mg PO DAILY Qty: 10 0RF furosemide 40 mg tablet 40 mg PO BID 90 Days Qty: 90 1RF Protocol: Hold for SBP< HOLD for SBP < : 90 metoprolol succinate [Toprol XL] 25 mg tablet extended release 24 hr 25 mg PO DAILY Qty: 30 0RF thiamine mononitrate (vit B1) [Vitamin B-1 (mononitrate)] 100 mg tablet 100 mg PO DAILY losartan 25 mg tablet 25 mg PO Q OTHER DAY Hold Instructions: Resume on 03/02/23. hold until seen by pcp folic acid 1 mg tablet 1 mg PO DAILY spironolactone 25 mg tablet 25 mg PO DAILY potassium chloride 10 mEq tablet extended release 10 meq PO DAILY Interventions: ED Discharge Assessment Last Done: 02/26/23 14:06
[2023-02-26 13:17] LABS: Appearance Urine Clear; Color Urine Yellow; Glucose Urine UA 500 mg/dL (Negative); Leukocyte Esterase Urine Negative (Negative); Nitrite Urine Negative (Negative); PH 7.5 (5.0-9.0); Urine Blood Negative (Negative); Urine Ketones Negative (Negative); Urine Protein Negative (Neg-Trace)
== END 2023-02-26 14:07 | disposition home or self-care (01) ==
PROVIDERS: Emergency Provider Emergency Medicine Emergency Medical Services; PCP Internal Medicine
DX: R60.0 Localized edema (principal); I42.9 Cardiomyopathy, unspecified; R06.02 Shortness of breath; Z79.899 Other long term (current) drug therapy
CPT/HCPCS: 36415; 80053; 80307; 81003; 83880; 84484; 85025; 99283; 99284

== ENCOUNTER 2023-03-11 08:31 | Inpatient (IN) | payer OTHER, SELFPAY ==
[2023-03-11] VITALS (10 sets, daily range): BP systolic 117–141; BP diastolic 81–102; PULSE 106–149; RESP 18–24; TEMP 36.6–37; O2SAT 95–97; BMI 33.4
--- NOTE | ~2023-03-11 | XR_ITS ---
EXAMINATION: XR CHEST 9:41 AM CLINICAL INFORMATION: Dyspnea COMPARISON: 02/08/2023 TECHNIQUE: Frontal view of the chest was obtained. FINDINGS: The cardiac silhouette is magnified by the AP position, but likely enlarged and stable. Minimal linear atelectasis or scar in the lateral right midlung zone is unchanged. XR/XR chest 1V IMPRESSION: No significant change in cardiomegaly, nor minimal atelectasis or scar in the right midlung zone since 02/08/2023.
--- NOTE | 2023-03-11 08:55 | ECG_ITS ---
Test Reason : AFIB Blood Pressure : / mmHG Vent. Rate : 138 BPM Atrial Rate : 000 BPM P-R Int : 000 ms QRS Dur : 106 ms QT Int : 328 ms P-R-T Axes : 000 067 180 degrees QTc Int : 496 ms Atrial fibrillation with rapid ventricular response with premature ventricular or aberrantly conducted complexes Anterior infarct , age undetermined Abnormal ECG When compared with ECG of 08-FEB-2023 18:24, No significant change was found Referred By: Generic ED Physician Electronically Signed By:SAUL SPAULDING
--- NOTE | 2023-03-11 09:15 | ED_ITS ---
HPI - SOB/Dyspnea General Chief Complaint: General Medical Stated Complaint: both legs and feet swelling Time Seen by Provider: 03/11/23 09:00 Source: patient and old records reviewed Mode of arrival: ambulatory Limitations: no limitations History of Present Illness HPI Narrative: 57 yo male with hx of AFIB, PE on eliquis, severe cardiomyopathy EF 10-15% due to ETOH abuse - on amiodarone and digoxin though he tells me he was told to stop the digoxin (I do not see a note of this anywhere) he was supposed to be on it as of discharge in February for volume overload. He notes for 2 weeks increased edema, DICKINSON, and 9lbs weight gain. He admits to missing his meds 1 or 2 times a week. He came today because he feels so short of breath when he walks. He denies pain. He states he did take his blood thinners. MD elicited complaint: shortness of breath Pertinent past history: congestive heart failure and PE Onset (ago): week(s) (2) Context: medication noncompliance Timing: progressively worsening Severity: moderate Exacerbating factors: lying flat and exertion Relieving factors: rest Known history of: congestive heart failure Associated symptoms: other (edema, palpitations) Treatment prior to arrival: none Related Data Home Medications Medication Instructions Recorded Confirmed folic acid 1 mg tablet 1 mg PO DAILY 09/16/22 02/08/23 losartan 25 mg tablet 25 mg PO Q OTHER DAY 09/16/22 02/08/23 potassium chloride 10 mEq 10 meq PO DAILY 09/16/22 02/08/23 tablet,extended release spironolactone 25 mg tablet 25 mg PO DAILY 09/16/22 02/08/23 thiamine mononitrate (vit B1) 100 100 mg PO DAILY 09/16/22 02/08/23 mg tablet (Vitamin B-1 (mononitrate)) digoxin 125 mcg (0.125 mg) tablet 125 mcg PO DAILY 12/13/22 02/08/23 Previous Rx's Medication Instructions Recorded amiodarone 200 mg tablet 200 mg PO DAILY 90 days #90 tabs 12/31/21 apixaban 5 mg tablet (Eliquis) 5 mg PO BID #180 tabs 12/31/21 empagliflozin 10 mg tablet 10 mg PO DAILY #30 tabs 11/18/22 (Jardiance) furosemide 40 mg tablet 40 mg PO BID 90 days #90 tabs 02/11/23 magnesium oxide 400 mg (241.3 mg 800 mg (2 x 400 mg (241.3 mg 02/11/23 magnesium) tablet magnesium)) PO DAILY #10 tabs metoprolol succinate 25 mg 25 mg PO DAILY #30 tabs 02/11/23 tablet,extended release 24 hr (Toprol XL) furosemide 80 mg tablet (Lasix) 80 mg PO DAILY 2 weeks #14 tabs 02/26/23 potassium chloride 10 mEq 10 meq PO DAILY #14 tabs 02/26/23 tablet,extended release(part/cryst) Allergies Allergy/AdvReac Type Severity Reaction Status Date / Time No Known Allergies Allergy Verified 03/11/23 08:50 [No Known Allergies*] Review of Systems 2 Review of Systems: Constitutional : No Fever, No Chills ENT/Mouth : No sore throat, No Rhinorrhea, No Swallowing Difficulty Eyes: No Eye Pain, No Swelling, No Redness Cardiovascular : No Chest Pain, positive SOB, No Orthopnea, positive Edema Respiratory : No Cough, No Sputum, No Wheezing, positive dyspnea Gastrointestinal : No Nausea, No Vomiting, No Diarrhea, No abdominal Pain, No Hematochezia, No Melena Genitourinary : No Dysuria, No Urinary Frequency, No Hematuria Musculoskeletal : No joint pain, No Myalgias Skin : No Skin Lesions, No rash Neuro : No Weakness, No Numbness, No Dizziness, No Headache Psych : No Anxiety/Panic, No Depression All other systems reviewed and are negative PMFSH Past Medical History Attestation statement: The following information was validated with the patient. Source: old records reviewed Medical History Chronic HFrEF (heart failure with reduced ejection fraction) Cardiomyopathy Atrial fibrillation with rapid ventricular response Alcohol dependence with withdrawal Alcoholic hepatitis HTN (hypertension) Surgical History No pertinent past surgical history Family History Family History Father CAD (coronary artery disease) Mother Atrial fibrillation Social History Social History Household Members: None Housing: Apartment Do you presently have visiting nurse or other home services: No Unable to assess alcohol history related to: Unable to respond Alcohol intake: current Alcohol intake frequency: a few times a week Alcohol type: hard liquor Patient Tobacco Use Status: Never used Tobacco Smoked in Last 30 Days: No Use of substances other than those prescribed or required for medical reasons: No Advance Directives: Yes Advance Directives on File: Yes Advance Directives Date on File: 02/12/23 service: No Current occupational status: unemployed Physical Exam 2 Vital Signs: Vital Signs: Last Vital Signs Temp 98.5 F 03/11/23 10:44 Pulse 113 H 03/11/23 10:44 Resp 22 H 03/11/23 10:44 BP 127/100 H 03/11/23 10:44 Pulse Ox 96 03/11/23 10:44 O2 Del Method Room Air 03/11/23 10:44 BMI result Body Mass Index 33.4 Appearance: Alert. Oriented X3. Mild acute distress. Eyes: Pupils equal, round and reactive to light. ENT: Pharynx normal. Neck: Normal inspection. Neck supple. JVD noted CVS: irregular tachycardic heart rate and rhythm. Pulses normal. Respiratory: Mild respiratory distress slightly tachypneic. Breath sounds rales at bases Abdomen: Soft and nontender. Skin: Skin warm and dry. Normal skin color. Normal skin turgor. Extremities: bilateral lower extremity 2 - 3+ pitting edema Neuro: Oriented X 3. No motor deficit. No sensory deficit. Course Course Course Narrative: HR down to 120/115 will give additional 2.5mg Reevaluation(s) Reevaluation #1: states he took his amiodarone this AM but not digoxin will dose with oral now BP stable started to diurese after IV lasix has no abdominal pain suspect hepatic congestion from CHF and ETOH started him on lasix drip planned admit pending repeat troponin HR down to 110s, BP stable. no signs of ETOH withdrawal Reevaluation #2: trop flat Medications Administered Discontinued Medications Generic Name Dose Route Start Last Admin Trade Name Shilo PRN Reason Stop Dose Admin Digoxin 0.125 mg 03/11/23 10:16 03/11/23 10:38 Digoxin 0.125 Mg Tablet PO 03/11/23 10:17 0.125 mg ONCE ONE Administration Furosemide 40 mg 03/11/23 09:01 03/11/23 09:21 Furosemide 40 Mg/4 Ml Vial IVPUSH 03/11/23 09:02 40 mg STAT STA Administration Protocol Thiamine HCl 200 mg/ Sodium 102 mls @ 204 mls/hr 03/11/23 09:48 03/11/23 10:24 Chloride IV 03/11/23 10:17 204 mls/hr ONCE ONE Administration Magnesium Sulfate 2 gm in 50 mls @ 25 mls/hr 03/11/23 09:48 03/11/23 10:15 Magnesium Sulfate/H2o IV 03/11/23 11:47 25 mls/hr ONCE ONE Administration Metoprolol Tartrate 5 mg 03/11/23 09:01 03/11/23 09:21 Metoprolol Tartrate 5 Mg/5 Ml Vial IVPUSH 03/11/23 09:02 5 mg ONCE ONE Administration Medical Decision Making Medical Decision Making [facility] Narrative: 57 yo male with hx of AFIB, PE on eliquis, severe cardiomyopathy EF 10-15% due to ETOH abuse - on amiodarone and digoxin here with c/o edema, afib with RVR, DICKINSON - he admits to non compliance and even states someone took him off digoxin which is not the case per our notes. At this time will give IV lopressor low dose - repeated low dose rate control given EF 10%, IV lasix, labs, CXR, may need IV digoxin. Avoid diltiazem/CCB likely admit. I suspect this is all due to noncompliance. He does state he takes his DOAC and PE seems unlikely in this setting states he took his eliquis this AM. Differential Diagnosis Differential Diagnoses: The differential diagnosis associated with the presentation includes CHF and noncompliance - doubt PE he states he is compliant with his DOAC at least Admission/Observation Consideration of admission/observation: Escalation of care including admission/observation considered admit for rate control and diuresis Consult Healthcare Provider Management of the patient was discussed with: Hospitalist will admit Lab Data [facility] Lab Attestation statement: I reviewed the patient's lab results. 03/11/23 09:15 03/11/23 09:15 Labs: Lab Results 03/11/23 03/11/23 03/11/23 Range/Units 09:15 09:16 11:17 WBC 6.6 (4.8-10.8) X10*3/uL RBC 3.46 L (4.60-5.80) X10*6/uL Hgb 13.0 L (14.0-18.0) g/dl Hct 39.0 L (42.0-52.0) % MCV 112.7 H (80.0-98.0) fL MCH 37.6 H (27.0-33.0) pg MCHC 33.3 (31.0-36.0) g/dl RDW 15.5 (11.0-16.0) % Plt Count 149 L (160-400) X10*3/uL MPV 10.6 (9.4-12.4) fL Immature Gran % (Auto) 0.3 (0.0-0.4) % Neut % (Auto) 74.1 H (45-73) % Lymph % (Auto) 13.3 L (20-40) % [place] % (Auto) 11.8 H (2-11) % Eos % (Auto) 0.0 (0-4) % Baso % (Auto) 0.5 (0-2) % Lymph # (Auto) 0.9 L (1.2-4.9) X10*3/uL [place] # (Auto) 0.8 (0.1-1.2) X10*3/uL Eos # (Auto) 0.0 (0.0-0.4) X10*3/uL Baso # (Auto) 0.0 (0.0-0.2) X10*3/uL Abs Immat Gran (auto) 0.02 (0.00-0.03) X10*3/uL Absolute Neuts (auto) 4.9 (2.0-8.3) x10*3/uL Absolute Nucleated RBC 0.000 (0.0-0.012) X10*3/uL Nucleated RBC % (auto) 0.0 (0.0-0.2) /100WBC PT 18.2 H D (11.1-13.3) SEC INR 1.5 H (0.9-1.1) APTT 32.7 (26.0-36.4) SEC Sodium 138 (135-145) mmol/L Potassium 4.1 (3.3-5.1) mmol/L Chloride 100 (96-108) mmol/L Carbon Dioxide 23 (22-29) mmol/L Anion Gap 19 (12-20) BUN 20 H (9-16) mg/dL Creatinine 1.32 (0.5-1.4) mg/dL Estim Creat Clear Calc 76.9 Estimated GFR 56 Random Glucose 158 H (60-115) mg/dL Calcium 9.5 D (8.4-10.2) mg/dL Magnesium 1.5 L (1.6-2.6) mg/dL Total Bilirubin 4.0 H (0.0-1.0) mg/dL Direct Bilirubin 2.0 H (0.0-0.5) mg/dL AST 202 H (5-37) U/L ALT 108 H (0-40) U/L Alkaline Phosphatase 187 H (39-117) U/L Troponin I High Sens 53.4 H D 50.8 H (<3.5-35.0) ng/L B-Natriuretic Peptide 3676 H (<100) pg/mL Total Protein 7.2 (6.5-8.0) g/dL Albumin 4.0 (3.5-5.0) g/dL Digoxin 0.3 L (0.8-2.0) ng/mL Ethyl Alcohol < 10 mg/dL Independent Interpretation I performed an independent interpretation of an: EKG and Rhythm Strip Interpretation: Rate: 138 Rhythm: afib with RVR, PVC noted [place]: normal Normal QRS complex. ST T wave : nonspecific changes in lateral leads, no LORI qTC: 496 slightly prolonged prior studies: changed from prior The study has been interpreted contemporaneously by me. . Radiology Impression Discussion of test interpretation with radiology: I have reviewed the radiologist's reading. External Record Review External record reviewed: Inpatient record, Office record and Prior outpatient radiology Social Determinants Patient?s care significantly limited by Social Determinants of Health including: Other Social Determinant of Health (noncompliance with medications) Critical Care Time Critical Care Time Critical Care Time: Yes Total Critical Care Time: 60 Attestation: IV magnesium, IV lopressor, review of records, rate control of rapid afib, IV lasix drip for pulm edema I attest to this time spent taking care of the patient Discharge Plan Discharge Clinical Impression: Atrial fibrillation with rapid ventricular response, Hypomagnesemia, Elevated liver enzymes Acute exacerbation of CHF (congestive heart failure) Qualifiers: Heart failure type: systolic Qualified Code(s): I50.23 - Acute on chronic systolic (congestive) heart failure Patient Disposition: Admitted As Inpatient
[2023-03-11] MEDS: Furosemide 40 MG/4 ML VIAL IVPUSH (09:21)
[2023-03-11] MEDS: Metoprolol Tartrate 5 MG/5 ML VIAL IVPUSH (09:21)
[2023-03-11 09:23] LABS: MANUAL DIFF FLAG NO
[2023-03-11 09:24] LABS: Basophils Percent Auto 0.5 % (0-2); Imm Gran Abs Auto 0.02 X10*3/uL (0.00-0.03); Imm Gran Pct Auto 0.3 % (0.0-0.4); Lymphocytes Absolute Auto 0.9 X10*3/uL (1.2-4.9); Lymphocytes Percent Auto 13.3 % (20-40); Mean Corpuscular HGB Conc 33.3 g/dl (31.0-36.0); Mean Corpuscular Hemoglobin 37.6 pg (27.0-33.0); Mean Platelet Volume 10.6 fL (9.4-12.4); Monocytes Absolute Auto 0.8 X10*3/uL (0.1-1.2); Monocytes Percent Auto 11.8 % (2-11); Neutrophils Absolute Auto 4.9 x10*3/uL (2.0-8.3); Neutrophils Percent Auto 74.1 % (45-73); Platelet Count 149 X10*3/uL (160-400); Red Blood Count 3.46 X10*6/uL (4.60-5.80); Red Cell Distribution Width 15.5 % (11.0-16.0); White Blood Count 6.6 X10*3/uL (4.8-10.8)
[2023-03-11 09:29] LABS: Mean Corpuscular Volume 112.7 fL (80.0-98.0)
[2023-03-11 09:31] LABS: INTERNATIONAL NORM RATIO 1.5 (0.9-1.1); Prothrombin Time 18.2 SEC (11.1-13.3)
[2023-03-11 09:34] LABS: Partial Thromboplastin Time 32.7 SEC (26.0-36.4)
--- NOTE | 2023-03-11 09:34 | PC.NURSE ---
aox4. DICKINSON. no sob at rest. no cp/dizziness. +VS. given metop/lasix per order.
[2023-03-11 09:40] LABS: Digoxin 0.3 ng/mL (0.8-2.0)
[2023-03-11 09:42] LABS: Alanine Aminotransferase 108 U/L (0-40); Alkaline Phosphatase 187 U/L (39-117); Anion Gap 19 (12-20); Aspartate Amino Transferase 202 U/L (5-37); Blood Urea Nitrogen 20 mg/dL (9-16); Calcium 9.5 mg/dL (8.4-10.2); Carbon Dioxide 23 mmol/L (22-29); Chloride 100 mmol/L (96-108); Creatinine Clr Calc Pharmacy 76.9; Estimated Glomerular Filt Rate 56; Ethanol < 10 mg/dL; Glucose Random 158 mg/dL (60-115); Magnesium 1.5 mg/dL (1.6-2.6); Potassium 4.1 mmol/L (3.3-5.1); Sodium 138 mmol/L (135-145); Total Protein 7.2 g/dL (6.5-8.0)
[2023-03-11 09:44] LABS: B Type Natriuretic Peptide 3676 pg/mL (<100)
[2023-03-11 09:45] LABS: Troponin-I High Sensitivity 53.4 ng/L (<3.5-35.0)
[2023-03-11] MEDS: Magnesium Sulfate/H2O 2 GM/50 ML PIGGYBACK IV (10:15)
[2023-03-11] MEDS: Thiamine HCL 200 MG in 0.9 % Sodium Chloride 100 ML 204 MG IV (10:24)
[2023-03-11] MEDS: Digoxin 0.125 MG TABLET PO ×2 (10:38→16:39)
--- NOTE | 2023-03-11 11:10 | PC.NURSE ---
pharmacy continues in process making lasix gtt- states by pharmacist to await pharm to send down
[2023-03-11 11:47] LABS: Troponin-I High Sensitivity 50.8 ng/L (<3.5-35.0)
[2023-03-11] MEDS: Furosemide 200 MG in 0.9 % Sodium Chloride 80 ML IVCONT (12:04)
--- NOTE | 2023-03-11 13:02 | P.HPHOSP_ITS ---
History of Present Illness Date of Service: 03/11/23 Attending physician on admission: Tim Myers Chief Complaint: Increasing SOB, DICKINSON, LLE Pt is a 57-year-old male with a PMH significant for?persistent AFib Eliquis, alcoholic hepatitis, alcoholic cardiomyopathy, HTN, and HFrEF of 10-15% (echo 10/07/2022) who presents to the ED with?increasing lower leg edema, SOB, and dyspnea on exertion for the past 2 weeks. Patient has a long history of hospital admissions for CHF exacerbations secondary to medication noncompliance with last admission on 02/09-02/11/2023 where the patient was treated for pulmonary embolism and CHF exacerbation. Today, patient presents to the emergency room after noticing that his legs had ?swollen up like a balloons?. Patient also has noticed increased shortness of breath and dyspnea on exertion, particularly with walking up stairs. Also endorses orthopnea and 25 lb weight gain in the past 2-3 weeks. Patient admits he has again been noncompliant with his medications though he claims not intentionally, he just forgets to take his Lasix 1-2 times a week. However, he reports starting a new job where he does not want to take a bathroom break every 15 minutes. States he has switched taking his Lasix in the morning to taking it at night when he gets home from work around 23:30. However patient is supposed to be on furosemide 40 mg p.o. b.i.d. so appears to be getting, at best, only half his prescribed dose. Patient also reports he has not been taking his digoxin ?for months?; claims this was at the instruction of Dr. Baker the cardiology notes do not mention this. Reports occasional palpitations when he lays down to sleep at night. Denies chest pain/pressure. No fever, chills, nausea, vomiting, diarrhea, abdominal pain. Patient also has a long history of heavy alcohol use, though states he is now only occasionally drinking 2-3 drinks once or twice a week on the weekends. In the ED patient was afebrile but tachycardic up to 149, tachypneic up to 24, and hypertensive up to 141/91. Labs were significant for stable H&H 13.0/39.0, magnesium 1.5, bilirubin 4.0, AST 202, ALT 108, alk-phos 187, initial troponin 53.4 with repeat flat at 50.8, BNP 3676. Digoxin level subtherapeutic at 0.3. CXR showed a significant interval change in cardiomegaly, minimal atelectasis, or scar in the right mid lung zone since 02/08/2023. EKG demonstrated AFib with RVR of 138 [address] evidence of ST elevations or depressions. Pt was treated with furosemide 40 mg IV, verbal 5 mg IV, Mag sulfate, thiamine, digoxin 0.125 mg p.o., and this started on phenobarb protocol and IV Lasix drip. Pt will be admitted to the hospital for treatment and further evaluation of acute HFrEF exacerbation with IV Lasix and specialist consultation. Review of Systems 2 Review of Systems: Increasing SOB Increasing DICKINSON Increasing edema from feet to thighs Occasional palpitations at night Denies chest pain/pressure No headache, diaphoresis, upper extremity tremors Denies fever, chills, nausea, vomiting, diarrhea, abdominal pain Yes all other systems are reviewed and are negative FOR[facility]LY [facility], [facility] Medical History Chronic HFrEF (heart failure with reduced ejection fraction) Cardiomyopathy Atrial fibrillation with rapid ventricular response Alcohol dependence with withdrawal Alcoholic hepatitis HTN (hypertension) Family History Father CAD (coronary artery disease) Mother Atrial fibrillation Surgical History No pertinent past surgical history Social History Household Members: None Housing: Apartment Do you presently have visiting nurse or other home services: No Unable to assess alcohol history related to: Unable to respond Alcohol intake: current Alcohol intake frequency: a few times a week Alcohol type: hard liquor Patient Tobacco Use Status: Never used Tobacco Smoked in Last 30 Days: No Patient Interested in Nicotine Replacement: No Patient Given Instructions on How to Stop Smoking: No Second Hand Smoke Exposure: No Use of substances other than those prescribed or required for medical reasons: No Currently Displaying Signs/Symptoms of Drug Intoxication Withdrawal: No Any prior treatment program specific to substance use: No Have you been hit, kicked, punched, or otherwise hurt by someone within the past year? If so, by whom?: No Do you feel safe in your current relationship?: No Current Relationship Is there a partner from a previous relationship who is making you feel unsafe now?: No Are you made to feel afraid or neglected: No Advance Directives: Yes Advance Directives on File: Yes Advance Directives Date on File: 02/12/23 Do you have thoughts of harming others: None Do you have a plan to hurt others: No Plan Recently lost weight without trying: No Eating poorly because of decreased appetite: No Nutrition Risks: No Nutritional Risk Poor oral hygiene: No service: No Current occupational status: unemployed Meds Allergies Allergy/AdvReac Type Severity Reaction Status Date / Time No Known Allergies Allergy Verified 03/11/23 08:50 [No Known Allergies*] Active Medications: Current Medications Furosemide 200 mg/ Sodium (Chloride) 100 mls @ 2.5 mls/hr IVCONT .Q24H EDWIN Last Admin: 03/11/23 12:04 Dose: 5 mg/hr, 2.5 mls/hr Pharmacy Consult (Consult Rx Etoh Phenob Im/Po) 1 each MISCELLANE ONCE PRN; Protocol PRN Reason: Consult order Home Medications Medication Instructions Recorded Confirmed Last Taken Type folic acid 1 mg tablet 1 mg PO DAILY 09/16/22 03/11/23 03/10/23 History losartan 25 mg tablet 25 mg PO Q OTHER DAY 09/16/22 03/11/23 03/10/23 History spironolactone 25 mg tablet 25 mg PO DAILY 09/16/22 03/11/23 03/10/23 History thiamine mononitrate (vit B1) 100 100 mg PO DAILY 09/16/22 03/11/23 03/10/23 History mg tablet (Vitamin B-1 (mononitrate)) digoxin 125 mcg (0.125 mg) tablet 125 mcg PO DAILY 12/13/22 03/11/23 03/10/23 History Physical Exam 2 Vital Signs and Narrative: Vital Signs: Last Vital Signs Temp 98.5 F 03/11/23 10:44 Pulse 113 H 03/11/23 10:44 Resp 22 H 03/11/23 10:44 BP 127/100 H 03/11/23 10:44 Pulse Ox 96 03/11/23 10:44 O2 Del Method Room Air 03/11/23 10:44 BMI result Body Mass Index 33.4 Constitutional: Alert, in no acute distress. Mental Status: Oriented to person, place and time. Eyes: Pupils are equal, round, and reactive to light. Sclera nonicteric. Ear, Nose, and Throat: Oropharynx clear, mucous membranes moist. Ears and nose without deformities. Trachea midline. Respiratory: Clear to auscultation bilaterally. No wheezing, rales, or rhonchi. Cardiovascular: Irregularly irregular rhythm, tachycardic. No murmurs, rubs, or gallops. Gastrointestinal: Abdomen soft, non-tender, non-distended. Normal bowel sounds. Neurologic: Cranial nerves II-XII are grossly intact bilaterally. No focal neurological deficits. Moves all extremities spontaneously. Back: Sacral edema Skin: No rashes or lesions noted. Musculoskeletal: No cyanosis or clubbing. Extremities: 2+ pitting edema bilaterally extending from feet to sacral area. Psychiatric: Normal mood and affect. Results Labs 03/11/23 09:15 03/11/23 09:15 Labs: Laboratory Results - last 24 hr 03/11/23 03/11/23 09:15 09:16 MCV 112.7 H MCH 37.6 H MCHC 33.3 RDW 15.5 Plt Count 149 L MPV 10.6 Immature Gran % (Auto) 0.3 Neut % (Auto) 74.1 H Lymph % (Auto) 13.3 L [place] % (Auto) 11.8 H Eos % (Auto) 0.0 Baso % (Auto) 0.5 Lymph # (Auto) 0.9 L [place] # (Auto) 0.8 Eos # (Auto) 0.0 Baso # (Auto) 0.0 Abs Immat Gran (auto) 0.02 Absolute Neuts (auto) 4.9 Absolute Nucleated RBC 0.000 Nucleated RBC % (auto) 0.0 PT 18.2 H D INR 1.5 H APTT 32.7 Anion Gap 19 Estim Creat Clear Calc 76.9 Estimated GFR 56 Random Glucose 158 H Calcium 9.5 D Magnesium 1.5 L Total Bilirubin 4.0 H Direct Bilirubin 2.0 H AST 202 H ALT 108 H Alkaline Phosphatase 187 H B-Natriuretic Peptide 3676 H Total Protein 7.2 Albumin 4.0 Digoxin 0.3 L Ethyl Alcohol < 10 Imaging Radiologist's Impressions: Impressions Chest X-Ray 03/11/23 09:50 IMPRESSION: No significant change in cardiomegaly, nor minimal atelectasis or scar in the right midlung zone since 02/08/2023. Assessment and Plan (1) Elevated liver enzymes: Status: Acute (2) Hypomagnesemia: Status: Acute (3) Acute exacerbation of CHF (congestive heart failure): Qualifiers: Heart failure type: systolic Qualified Code(s): I50.23 - Acute on chronic systolic (congestive) heart failure Status: Acute (4) Atrial fibrillation with rapid ventricular response: Status: Acute (5) Acute on chronic congestive heart failure: Status: Acute Plan Pt is a 57-year-old male with a PMH significant for?persistent AFib Eliquis, alcoholic hepatitis, alcoholic cardiomyopathy, HTN, and HFrEF of 10-15% (echo 10/07/2022) who presents to the ED with?increasing lower leg edema, SOB, and dyspnea on exertion for the past 2 weeks. Pt will be admitted to the hospital for treatment and further evaluation of acute HFrEF exacerbation with IV Lasix and specialist consultation. Acute on chronic HFrEF exacerbation Elevated BNP, patient with increased SOB and DICKINSON, 2+ bilateral lower leg pitting edema extending from feet all the way to sacrum, 25 lb weight gain in past 2-3 weeks Likely secondary to medication noncompliance, pt only taking half home Lasix dose, occasionally missing doses 1-2 a week Patient given 40 mg Lasix IV and placed on Lasix drip in the ED Continue Lasix drip @ 5mg/hr Continue spironolactone Follow lytes, mg, I/O Cardiology consult Monitor on telemetry AFib with RVR Patient with heart rate is high as the 150s Likely multifactorial: In the setting of acute on chronic HFrEF exacerbation, medication noncompliance, patient claims has not been taking his digoxin for many months at direction of cardiology Patient received metoprolol 5 mg IV and digoxin 0.125 mg p.o. in the ED Heart rate currently in 110s-120 Will give additional digoxin 0.125 mg Continue Eliquis, home digoxin and amiodarone Hold metoprolol d/t acute HFrEF exacerbation Cardiology consult Monitor on telemetry Alcohol use disorder Pt sates no longer drinks daily, now has 2-3 drinks 1-2 days a week on the weekend Ethyl alcohol <10, LFTs worse than on prior admission No signs of acute withdrawal: No diaphoresis, tremors, patient without headache, anxiety, nausea, vomiting Pt refusing phenobarbital, will d/c order Continue thiamine, folic acid Monitor CIWA for possible withdrawal Acute hypomagnesemia Mag 1.5 Given Mag 2g IV in ED Follow mag Full Code Attending:?Dr. Myers DVT Prophylaxis: On Eliquis Pt will require a hospitalization of at least two nights for treatment of?acute on chronic HFrEF exacerbation with IV diuretics, close monitoring, and specialist consultation. Time Spent With Patient Time: Total time managing care of this patient today ____ minutes. Quality Stroke Does the patient have a stroke diagnosis?: No VTE Prior VTE?: No VTE Risk Level:: Medical - moderate - high VTE Device Contraindication: Treatment Not Indicated VTE Drug Contraindication: N/A - Med Ordered
--- NOTE | 2023-03-11 13:23 | PHA.MEDREC ---
Pharmacy Consult ? Medication Reconciliation Pharmacy has completed the medication reconciliation. Spoke to patient. Seems to be confused. States Dr Baker told him to stop digoxin 5-6 months ago, but has been filling regularly. Says he did not put in pill box. Was not sure why he was getting it while here last time in the beginning of the month. PT has a list with them that has digoxin as well. As for lasix, from what I gather he is still only taking one a day. He started a new job and does not want to be using the restroom frequently. In the same regard, he does not want to wake up at night. Based on his new work schedule, he should be taking his meds BID at 1130 and 2320, except for the lasix which he can take at 6am if once a day. Tyrell
--- NOTE | 2023-03-11 15:04 | PC.NURSE ---
pt refused phenobarital im. aware.
--- NOTE | 2023-03-11 16:34 | PC.NURSE ---
md kulwant jenkins notified pt ciwa score and that he declined phenobarb x1 dose. pt talking, calm, coop. no distress noted/verbalized
--- NOTE | 2023-03-11 16:37 | PC.NURSE ---
called pharmacy to inquire about med verification as remain unverified
--- NOTE | 2023-03-11 16:40 | PC.NURSE ---
jardiance requested from pharm- not available in ed
[2023-03-11] MEDS: Spironolactone 25 MG TABLET PO (16:58)
[2023-03-11] MEDS: Thiamine HCL 100 MG TABLET PO (16:58)
[2023-03-11] MEDS: Potassium Chloride ER 10 MEQ TABLET.ER PO (16:58)
[2023-03-11] MEDS: Amiodarone HCL 200 MG TABLET PO (16:58)
[2023-03-11] MEDS: Folic Acid 1 MG TABLET PO (16:58)
--- NOTE | 2023-03-11 17:10 | PC.NURSE ---
called report attempt to [facility] on . no answer to unit when transfered. calling again
--- NOTE | 2023-03-11 17:12 | PC.NURSE ---
per placido ramires'd dori wood for report.
--- NOTE | 2023-03-11 17:14 | PC.NURSE ---
kaley encinas made aware pt decline phenobarb. and that CIWA is 0. awaiting jardiance from pharm- notified ed pharm as well
--- NOTE | 2023-03-11 17:31 | PC.NURSE ---
report called to [facility]. notified transport justyna in person.
[2023-03-11] MEDS: Empagliflozin 10 MG TABLET PO (17:35)
[2023-03-11] MEDS: Apixaban 5 MG TABLET PO (20:36)
[2023-03-11] MEDS: 0.9 % Sodium Chloride Flush 3 ML SYRINGE IVFLUSH (20:36)
[2023-03-12] VITALS (7 sets, daily range): BP systolic 114–153; BP diastolic 74–92; PULSE 63–124; RESP 14–20; TEMP 36.5–36.9; O2SAT 95–98
[2023-03-12] MEDS: Metoprolol Tartrate 5 MG/5 ML VIAL IVPUSH (03:04)
--- NOTE | 2023-03-12 03:09 | PC.NURSE ---
Approx 0245 pt HR 120-140s sustaining Afib. MD notified. 5mg IV Lopressor ordered and given with effect. HR down to the 100-110s.
[2023-03-12 06:43] LABS: Hematocrit 35.7 % (42.0-52.0); Hemoglobin 12.1 g/dl (14.0-18.0); Mean Corpuscular HGB Conc 33.9 g/dl (31.0-36.0); Mean Corpuscular Hemoglobin 37.5 pg (27.0-33.0); Mean Platelet Volume 11.1 fL (9.4-12.4); Platelet Count 143 X10*3/uL (160-400); Red Blood Count 3.23 X10*6/uL (4.60-5.80); Red Cell Distribution Width 15.2 % (11.0-16.0); White Blood Count 7.3 X10*3/uL (4.8-10.8)
[2023-03-12 06:55] LABS: Anion Gap 17 (12-20); Blood Urea Nitrogen 21 mg/dL (9-16); Calcium 9.3 mg/dL (8.4-10.2); Carbon Dioxide 24 mmol/L (22-29); Chloride 100 mmol/L (96-108); Estimated Glomerular Filt Rate 51; Glucose Random 118 mg/dL (60-115); Magnesium 1.7 mg/dL (1.6-2.6); Potassium 3.4 mmol/L (3.3-5.1); Sodium 138 mmol/L (135-145)
[2023-03-12 07:03] LABS: Mean Corpuscular Volume 110.5 fL (80.0-98.0)
[2023-03-12] MEDS: Empagliflozin 10 MG TABLET PO (07:51)
[2023-03-12] MEDS: 0.9 % Sodium Chloride Flush 3 ML SYRINGE IVFLUSH ×2 (07:51→16:31)
[2023-03-12] MEDS: Spironolactone 25 MG TABLET PO (07:51)
[2023-03-12] MEDS: Metoprolol Succinate ER 25 MG TAB.ER.24H PO (07:52)
[2023-03-12] MEDS: Thiamine HCL 100 MG TABLET PO (07:52)
[2023-03-12] MEDS: Digoxin 0.125 MG TABLET PO (07:53)
[2023-03-12] MEDS: Amiodarone HCL 200 MG TABLET PO (07:53)
[2023-03-12] MEDS: Potassium Chloride ER 10 MEQ TABLET.ER PO (07:53)
[2023-03-12] MEDS: Apixaban 5 MG TABLET PO ×2 (07:53→21:27)
[2023-03-12] MEDS: Folic Acid 1 MG TABLET PO (07:53)
--- NOTE | 2023-03-12 09:06 | MHC.CM.PN ---
03/12/23 09:02 - Case Mgmt Progress Note by Tita Small Acct Num: [id number] : 1965 Patient Age: 57 Home self care is the goal; CM has initiated and will follow for dc planning. Patient lives alone and is functionally independent. Patient's Sister/Lucy is the HCP and the PCP is Dr. Jerri Bennett. Initialized on 03/12/23 09:02 - END OF NOTE
[2023-03-12] MEDS: Furosemide 200 MG in 0.9 % Sodium Chloride 80 ML IVCONT (10:34)
[2023-03-12] MEDS: metOLazone 5 MG TABLET PO (10:36)
[2023-03-12] MEDS: Digoxin 0.5 MG/2 ML AMPUL 0.25 MG IVPUSH ×3 (10:36→22:42)
--- NOTE | 2023-03-12 10:59 | P.CONCA_ITS ---
History of Present Illness History of Present Illness Date of Service: 03/12/23 Requesting physician: Titus Ordonez Consult reason: atrial fibrillation and congestive heart failure Chief complaint: HFrEF exacerbation Narrative: I was consulted to see Abner in cardiology consultation today with management of decompensated congestive heart failure as well as atrial fibrillation rapid ventricular response. 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 Patient came to the hospital with decompensated congestive heart failure with significantly right heart failure finding but also has evidence of orthopnea and PND. Reported 25 lb weight gain. Patient does not take Lasix as directed. He said this is due to his job and he cannot take a bathroom break so frequently. He also is not currently taking digoxin without any obvious withdrawal by us. Patient came in with BNP of 36 76 with elevated liver profile most likely related to congestive liver issues. Minimal troponin elevation related to AFib as well as the congestive heart failure. Hypomagnesemia which has improved with replacement but not corrected. Potassium was gone down with diuresis. Negative balance of in the chart as reported as 950 cc. Patient is remains markedly fluid overloaded. Creatinine is elevated. Review of Systems 2 Constitutional: Constitutional: Reports no additional constitutional complaints Cardiovascular: Cardiovascular: Reports Abdominal Distension, Denies chest pain, Reports rapid heart rate, Reports leg edema, Denies lightheadedness, Denies Loss of Consciousness, Reports dyspnea on exertion and Reports orthopnea Respiratory: Respiratory: Reports dyspnea on exertion Gastrointestinal: Gastrointestinal: Reports no additional gastrointestinal complaints Musculoskeletal: Musculoskeletal: Reports no additional musculoskeletal complaints Neurologic: Reports system reviewed and no additional complaints, except as documented Psychiatric: Psychiatric: Reports irritability Endocrine: Endocrine: Reports no additional endocrine complaints [facility] Past Medical History Medical History Chronic HFrEF (heart failure with reduced ejection fraction) Cardiomyopathy Atrial fibrillation with rapid ventricular response Alcohol dependence with withdrawal Alcoholic hepatitis HTN (hypertension) Family History Family History Father CAD (coronary artery disease) Mother Atrial fibrillation Surgical History Surgical History No pertinent past surgical history Social History Social History Household Members: None Housing: Apartment Do you presently have visiting nurse or other home services: No Unable to assess alcohol history related to: Unable to respond Alcohol intake: current Alcohol intake frequency: a few times a week Alcohol type: hard liquor Patient Tobacco Use Status: Never used Tobacco Smoked in Last 30 Days: No Patient Interested in Nicotine Replacement: No Patient Given Instructions on How to Stop Smoking: No Second Hand Smoke Exposure: No Use of substances other than those prescribed or required for medical reasons: No Currently Displaying Signs/Symptoms of Drug Intoxication Withdrawal: No Any prior treatment program specific to substance use: No Have you been hit, kicked, punched, or otherwise hurt by someone within the past year? If so, by whom?: No Do you feel safe in your current relationship?: No Current Relationship Is there a partner from a previous relationship who is making you feel unsafe now?: No Are you made to feel afraid or neglected: No Advance Directives: Yes Advance Directives on File: Yes Advance Directives Date on File: 02/12/23 Do you have thoughts of harming others: None Do you have a plan to hurt others: No Plan Recently lost weight without trying: No Eating poorly because of decreased appetite: No Nutrition Risks: No Nutritional Risk Poor oral hygiene: No service: No Current occupational status: unemployed Meds Allergies Allergy/AdvReac Type Severity Reaction Status Date / Time No Known Allergies Allergy Verified 03/11/23 08:50 [No Known Allergies*] Active Medications: Current Medications Acetaminophen (Acetaminophen 325 Mg Tablet) 650 mg PO Q6H PRN PRN Reason: Pain, Mild (Pain Scale 1-3) Amiodarone HCl (Amiodarone Hcl 200 Mg Tablet) 200 mg PO DAILY [facility] Last Admin: 03/12/23 07:53 Dose: 200 mg Apixaban (Apixaban 5 Mg Tablet) 5 mg PO BID [facility] Last Admin: 03/12/23 07:53 Dose: 5 mg Digoxin (Digoxin 0.125 Mg Tablet) 0.125 mg PO DAILY [facility] Last Admin: 03/12/23 07:53 Dose: 0.125 mg Digoxin (Digoxin 0.5 Mg/2 Ml Ampul) 0.25 mg IVPUSH Q6H [facility] Stop: 03/12/23 14:31 Last Admin: 03/12/23 10:36 Dose: 0.25 mg Docusate Sodium (Docusate Sodium 100 Mg Capsule) 100 mg PO DAILY PRN PRN Reason: Constipation Empagliflozin (Empagliflozin 10 Mg Tablet) 10 mg PO DAILY [facility] Last Admin: 03/12/23 07:51 Dose: 10 mg Folic Acid (Folic Acid 1 Mg Tablet) 1 mg PO DAILY [facility] Last Admin: 03/12/23 07:53 Dose: 1 mg Furosemide 200 mg/ Sodium (Chloride) 100 mls @ 2.5 mls/hr IVCONT .Q24H [facility] Last Admin: 03/12/23 10:34 Dose: 5 mg/hr, 2.5 mls/hr Metoprolol Succinate (Metoprolol Succinate Er 25 Mg Tab.Er.24h) 25 mg PO DAILY [facility]; Protocol Last Admin: 03/12/23 07:52 Dose: 25 mg Ondansetron HCl (Ondansetron Hcl 4 Mg/2 Ml Vial) 4 mg IVPUSH Q8H PRN PRN Reason: Nausea and Vomiting Pharmacy Consult (Consult Rx Etoh Phenob Im/Po) 1 each MISCELLANE ONCE PRN; Protocol PRN Reason: Consult order Potassium Chloride (Potassium Chloride Er 10 Meq Tablet.Er) 10 meq PO DAILY [facility] Last Admin: 03/12/23 07:53 Dose: 10 meq Sodium Chloride (0.9 % Sodium Chloride Flush 3 Ml Syringe) 3 ml IVFLUSH QSHIFT [facility] Last Admin: 03/12/23 07:51 Dose: 3 ml Spironolactone (Spironolactone 25 Mg Tablet) 25 mg PO DAILY [facility]; Protocol Last Admin: 03/12/23 07:51 Dose: 25 mg Thiamine HCl (Thiamine Hcl 100 Mg Tablet) 100 mg PO DAILY [facility] Last Admin: 03/12/23 07:52 Dose: 100 mg Home Medications Medication Instructions Recorded Confirmed Last Taken Type folic acid 1 mg tablet 1 mg PO DAILY 09/16/22 03/11/23 03/10/23 History losartan 25 mg tablet 25 mg PO Q OTHER DAY 09/16/22 03/11/23 03/10/23 History spironolactone 25 mg tablet 25 mg PO DAILY 09/16/22 03/11/23 03/10/23 History thiamine mononitrate (vit B1) 100 100 mg PO DAILY 03/03/11/23 03/10/23 History mg tablet (Vitamin B-1 (mononitrate)) digoxin 125 mcg (0.125 mg) tablet 125 mcg PO DAILY 12/13/22 03/11/23 03/10/23 History Physical Exam 2 Vital Signs: Vital Signs: Last Vital Signs Temp 97.7 F 03/12/23 07:38 Pulse 124 H 03/12/23 07:38 Resp 20 03/12/23 07:38 BP 116/81 03/12/23 07:38 Pulse Ox 98 03/12/23 07:38 O2 Del Method Room Air 03/12/23 07:38 BMI result Body Mass Index 33.4 Const: General: cooperative, alert, awake, anxious and other (Aggressive) N utritional Appearance: overweight Orientation/consciousness: patient oriented x3 HEENT: Head: Yes normocephalic and Yes atraumatic Neck: Neck: Yes trachea midline, Yes supple and Yes JVD Resp: Effort & Inspection: normal respiratory effort Auscultation: clear to auscultation bilaterally Cardio: Jugular venous distension: JVD Rate: tachycardic Rhythm: a bnormal rhythm irregularly irregular Heart sounds: S1 normal heart sound present, S2 normal heart sound present, no click, no gallops, no murmurs and no rubs GI: Inspection: Yes distended Auscultation: normal bowel sounds Skin: General skin exam: no rashes or lesions noted Neuro: General: patient oriented x3 and no focal motor deficits Extrem: General: No clubbing, No cyanosis and Yes edema Objective Labs and Meds 03/12/23 05:50 03/12/23 05:50 Lab results: Laboratory Results - last 24 hr 03/11/23 03/12/23 11:17 05:50 WBC 7.3 RBC 3.23 L Hgb 12.1 L Hct 35.7 L MCV 110.5 H MCH 37.5 H MCHC 33.9 RDW 15.2 Plt Count 143 L MPV 11.1 Absolute Nucleated RBC 0.000 Nucleated RBC % (auto) 0.0 Sodium 138 Potassium 3.4 Chloride 100 Carbon Dioxide 24 Anion Gap 17 BUN 21 H Creatinine 1.43 H Estim Creat Clear Calc 71.0 Estimated GFR 51 Random Glucose 118 H Calcium 9.3 Magnesium 1.7 Troponin I High Sens 50.8 H Imaging Radiologist's impression: Impressions Chest X-Ray 03/11/23 09:50 IMPRESSION: No significant change in cardiomegaly, nor minimal atelectasis or scar in the right midlung zone since 02/08/2023. Assessment and Plan (1) Acute exacerbation of CHF (congestive heart failure): Qualifiers: Heart failure type: systolic Qualified Code(s): I50.23 - Acute on chronic systolic (congestive) heart failure Status: Acute Patient presents with decompensated heart failure with predominantly right heart failure finding with resultant renal dysfunction as well as hepatic congestion. This is due to noncompliance with medications including his cardiac medications diuretic regimen. Despite multiple hospitalizations patient has poor understanding of his medical condition and remains noncompliant with medications. He has also had significant heart failure that required tertiary care management at [facility] with cardiogenic shock. Patient seems to not understand his medical condition. However continue IV diuresis with Lasix drip. I am not sure if he is diuresing well. Would consider increasing to 10 mg an hour along with metolazone. Strict intake and output chart needs to be pursued. Would start metoprolol 25 mg q.6 hours. Continue spironolactone therapy. Continue losartan for now and eventually transition to Entresto therapy. Continue Jardiance. Overall prognosis is limited and guarded. Patient is not ready for discharge. Will continue to follow with you (2) Atrial fibrillation with rapid ventricular response: Status: Acute Atrial fibrillation rapid ventricular response related to noncompliance with medications. Would digitalize Mary with IV digoxin 0.25 mg IV q.6 x3 doses. Aggressively replace potassium and magnesium to reduced H toxicity. Metoprolol 25 mg p.o. q.6 hours. High likelihood of alcohol withdrawal and should consider the same as he has had similar history in the past. Continue Eliquis 5 mg b.i.d.. Will follow with you Time Spent With Patient Time: Total time managing care of this patient today ____ minutes. Procedures Date of Service Date of Service: 03/12/23
--- NOTE | 2023-03-12 16:34 | HO.PM.IMPN ---
Subjective Subjective Date of Service: 03/12/23 Interval History: Seen and evaluated Denies SOB but has significant edema HEart rate in 140s No chest pain Review of Systems Review of Systems: Yes all other systems are reviewed and are negative Physical Exam Vital Signs: Vital Signs: Last Vital Signs Temp 98.5 F 03/12/23 15:51 Pulse 63 03/12/23 15:51 Resp 18 03/12/23 15:51 BP 153/80 H 03/12/23 15:51 Pulse Ox 95 03/12/23 15:51 O2 Del Method Room Air 03/12/23 15:51 BMI result Body Mass Index 33.4 Const: Other: Constitutional : Awake, interactive, not in distress Neck : Normal inspection, Supple Cardiovascular : irregular irregular, elevated JVP, +2 lower extremity edema Respiratory : good bilateral air entry, no crackles, wheezes or rhonchi Gastrointestinal: soft, lax, Normal bowel sounds, Non tender Skin : Warm, Dry Neurological : Alert & oriented x3, No focal deficit Objective Data Active Medications Acetaminophen (Acetaminophen 325 Mg Tablet) 650 mg PO Q6H PRN PRN Reason: Pain, Mild (Pain Scale 1-3) Amiodarone HCl (Amiodarone Hcl 200 Mg Tablet) 200 mg PO DAILY [facility] OF [facility] Last Admin: 03/12/23 07:53 Dose: 200 mg Documented By: VIVEK Apixaban (Apixaban 5 Mg Tablet) 5 mg PO BID ON LICENSE OF [facility] Last Admin: 03/12/23 07:53 Dose: 5 mg Documented By: VIVEK Digoxin (Digoxin 0.125 Mg Tablet) 0.125 mg PO DAILY [facility] Last Admin: 03/12/23 07:53 Dose: 0.125 mg Documented By: VIVEK Docusate Sodium (Docusate Sodium 100 Mg Capsule) 100 mg PO DAILY PRN PRN Reason: Constipation Empagliflozin (Empagliflozin 10 Mg Tablet) 10 mg PO DAILY [facility] Last Admin: 03/12/23 07:51 Dose: 10 mg Documented By: VIVEK Folic Acid (Folic Acid 1 Mg Tablet) 1 mg PO DAILY [facility] Last Admin: 03/12/23 07:53 Dose: 1 mg Documented By: VIVEK Furosemide 200 mg/ Sodium (Chloride) 100 mls @ 2.5 mls/hr IVCONT .Q24H [facility] OF [facility] Last Admin: 03/12/23 10:34 Dose: 5 mg/hr, 2.5 mls/hr Documented By: VIVEK Metoprolol Succinate (Metoprolol Succinate Er 25 Mg Tab.Er.24h) 25 mg PO DAILY [facility]; Protocol Last Admin: 03/12/23 07:52 Dose: 25 mg Documented By: VIVEK Ondansetron HCl (Ondansetron Hcl 4 Mg/2 Ml Vial) 4 mg IVPUSH Q8H PRN PRN Reason: Nausea and Vomiting Pharmacy Consult (Consult Rx Etoh Phenob Im/Po) 1 each MISCELLANE ONCE PRN; Protocol PRN Reason: Consult order Potassium Chloride (Potassium Chloride Er 10 Meq Tablet.Er) 10 meq PO DAILY [facility] Last Admin: 03/12/23 07:53 Dose: 10 meq Documented By: VIVEK Sodium Chloride (0.9 % Sodium Chloride Flush 3 Ml Syringe) 3 ml IVFLUSH QSHIFT ON LICENSE OF [facility] Last Admin: 03/12/23 16:31 Dose: 3 ml Documented By: VIVEK Spironolactone (Spironolactone 25 Mg Tablet) 25 mg PO DAILY [facility]; Protocol Last Admin: 03/12/23 07:51 Dose: 25 mg Documented By: VIVEK Thiamine HCl (Thiamine Hcl 100 Mg Tablet) 100 mg PO DAILY [facility] Last Admin: 03/12/23 07:52 Dose: 100 mg Documented By: VIVEK Labs 03/12/23 05:50 03/12/23 05:50 Labs: Laboratory Results - last 24 hr 03/12/23 05:50 MCV 110.5 H MCH 37.5 H MCHC 33.9 RDW 15.2 Plt Count 143 L MPV 11.1 Absolute Nucleated RBC 0.000 Nucleated RBC % (auto) 0.0 Anion Gap 17 Estim Creat Clear Calc 71.0 Estimated GFR 51 Random Glucose 118 H Calcium 9.3 Magnesium 1.7 Assessment and Plan (1) Hypomagnesemia: Status: Acute (2) Acute exacerbation of CHF (congestive heart failure): Status: Acute (3) Atrial fibrillation with rapid ventricular response: Status: Acute (4) Acute on chronic congestive heart failure: Status: Acute Plan Pt is a 57-year-old male with a PMH significant for?persistent AFib Eliquis, alcoholic hepatitis, alcoholic cardiomyopathy, HTN, and HFrEF of 10-15% (echo 10/07/2022) who presents to the ED with?increasing lower leg edema, SOB, and dyspnea on exertion for the past 2 weeks. Pt will be admitted to the hospital for treatment and further evaluation of acute HFrEF exacerbation with IV Lasix and specialist consultation. Acute on chronic HFrEF exacerbation secondary to medication noncompliance, Metolazone 5 mg Continue Lasix drip @ 5mg/hr Continue spironolactone Follow lytes, mg, I/O Cardiology input appreciated telemetry persistant AFib with RVR Start IV Digoxin load Continue Eliquis and amiodarone Continue Metoprolol Cardiology following Alcohol use disorder Pt sates no longer drinks daily, now has 2-3 drinks 1-2 days a week on the weekend Ethyl alcohol <10, LFTs worse than on prior admission Continue thiamine, folic acid Monitor CIWA for possible withdrawal Acute hypomagnesemia replaced Full Code DVT Prophylaxis: On Eliquis Pt will require a hospitalization overnight for treatment of?acute on chronic HFrEF exacerbation with IV diuretics, close monitoring, and specialist consultation. Time Spent With Patient Time: Total time managing care of this patient today ____ minutes. Quality Stroke Does the patient have a stroke diagnosis?: No VTE Prior VTE?: No VTE Risk Level:: Medical - moderate - high VTE Device Contraindication: Treatment Not Indicated VTE Drug Contraindication: N/A - Med Ordered
[2023-03-13 04:00] VITALS: BP 103/58; PULSE 95; RESP 20; TEMP 36.8; O2SAT 93
[2023-03-13 06:54] LABS: Anion Gap 12 (12-20); Blood Urea Nitrogen 21 mg/dL (9-16); Calcium 9.6 mg/dL (8.4-10.2); Carbon Dioxide 35 mmol/L (22-29); Chloride 94 mmol/L (96-108); Creatinine Clr Calc Pharmacy 73.1; Estimated Glomerular Filt Rate 53; Glucose Random 92 mg/dL (60-115); Potassium 3.4 mmol/L (3.3-5.1); Sodium 138 mmol/L (135-145)
[2023-03-13 06:57] LABS: B Type Natriuretic Peptide 3167 pg/mL (<100)
[2023-03-13 07:51] VITALS: BP 123/73; PULSE 93; RESP 18; TEMP 36.3; O2SAT 93
[2023-03-13] MEDS: Spironolactone 25 MG TABLET PO (08:40)
[2023-03-13] MEDS: Potassium Chloride ER 10 MEQ TABLET.ER PO (08:40)
[2023-03-13] MEDS: Empagliflozin 10 MG TABLET PO (08:41)
[2023-03-13] MEDS: Digoxin 0.125 MG TABLET PO (08:41)
[2023-03-13] MEDS: Metoprolol Succinate ER 25 MG TAB.ER.24H PO ×2 (08:41→11:13)
[2023-03-13] MEDS: Amiodarone HCL 200 MG TABLET PO (08:41)
[2023-03-13] MEDS: Apixaban 5 MG TABLET PO ×2 (08:41→21:35)
[2023-03-13] MEDS: Folic Acid 1 MG TABLET PO (08:41)
[2023-03-13] MEDS: Thiamine HCL 100 MG TABLET PO (08:41)
[2023-03-13] MEDS: Magnesium Oxide 400 MG TABLET PO (11:13)
[2023-03-13] MEDS: Potassium Chloride Packet 20 MEQ PACKET 40 MEQ PO ×2 (11:13→14:36)
[2023-03-13 11:37] VITALS: BP 126/72; PULSE 94; RESP 20; TEMP 36.7; O2SAT 97
[2023-03-13] MEDS: Furosemide 200 MG in 0.9 % Sodium Chloride 80 ML IVCONT (12:02)
--- NOTE | 2023-03-13 12:36 | PM.PNCARD ---
Subjective Subjective Date of Service: 03/13/23 Principal diagnosis: Decompensated congestive heart failure, atrial fibrillation. Interval history: Patient has diuresed robustly since yesterday. Diuresed about 11 L as recorded. However BNP is only marginally improved. Still remains significantly fluid overloaded with significant right-sided heart failure symptoms with significant leg swelling and abdominal distension. Creatinine is marginally improved. Potassium is on the low side. Heart rate is improved. Review of Systems Constitutional: Reports no additional constitutional complaints Eyes: Reports no additional eye complaints Cardiovascular: Reports Abdominal Distension, Denies chest pain, Denies rapid heart rate, Reports leg edema, Denies lightheadedness, Denies Loss of Consciousness and Denies dyspnea Respiratory: Reports no additional respiratory complaints and Denies dyspnea Gastrointestinal: Reports no additional gastrointestinal complaints Physical Exam Vital Signs: Last Vital Signs Temp 98.1 F 03/13/23 11:37 Pulse 94 03/13/23 11:37 Resp 20 03/13/23 11:37 BP 126/72 03/13/23 11:37 Pulse Ox 97 03/13/23 11:37 O2 Del Method Room Air 03/13/23 11:37 BMI result Body Mass Index 33.4 Const General: cooperative, alert, awake, anxious and other (Aggressive) Nutritional Appearance: overweight Orientation/consciousness: patient oriented x3 Neck Neck: Yes trachea midline, Yes supple and Yes JVD Resp Effort & Inspection: normal respiratory effort Auscultation: clear to auscultation bilaterally Cardio Jugular venous distension: JVD Rate: tachycardic Rhythm: abnormal rhythm irregularly irregular Heart sounds: S1 normal heart sound present, S2 normal heart sound present, no click, no gallops, no murmurs and no rubs GI Inspection: Yes distended Auscultation: normal bowel sounds Skin General skin exam: no rashes or lesions noted Neuro General: patient oriented x3 and no focal motor deficits Extrem General: No clubbing, No cyanosis and Yes edema Objective Labs and Meds 03/12/23 05:50 03/13/23 06:15 Lab results: Laboratory Results - last 24 hr 03/13/23 06:15 Sodium 138 Potassium 3.4 Chloride 94 L Carbon Dioxide 35 H Anion Gap 12 BUN 21 H Creatinine 1.39 Estim Creat Clear Calc 73.1 Estimated GFR 53 Random Glucose 92 Calcium 9.6 B-Natriuretic Peptide 3167 H Progress Note: A&P Assessment and plan (1) Acute exacerbation of CHF (congestive heart failure): Status: Acute Assessment and Plan: Heart failure with reduced ejection fraction with marked LV systolic dysfunction with atrial fibrillation patient with prior noncompliance. Has diuresed well well since yesterday and renal function is improved but still has significant central venous congestion which is going to make oral therapy ineffective as outpatient. Patient is not ready for discharge. I would continue to IV diuresis with Lasix drip. Strict intake and output chart needs to be pursued. Continue all neurohormonal modulators prescribed currently. Continue aggressive rate control as below. Replace electrolytes with potassium above 4 and magnesium above 2. I had a detailed discussion about his management again. He seems to not understand the gravity of his situation still despite multiple hospitalization. Trend BMP and BNP tomorrow (2) Atrial fibrillation with rapid ventricular response: Status: Acute Assessment and Plan: Atrial fibrillation with much improved heart rate control with re-initiation of medications. Continue current metoprolol. Switch to digoxin 0.25 mg p.o. daily. Continue full oral anticoagulation with Eliquis. Will follow with you. Time Spent With Patient Time: Total time managing care of this patient today ____ minutes. Progress Note: Quality Stroke Does the patient have a stroke diagnosis?: No Procedures Date of Service Date of Service: 03/13/23
[2023-03-13 12:50] LABS: Alanine Aminotransferase 65 U/L (0-40); Albumin Level 3.3 g/dL (3.5-5.0); Alkaline Phosphatase 137 U/L (39-117); Aspartate Amino Transferase 60 U/L (5-37); Bilirubin Direct 1.2 mg/dL (0.0-0.5); Bilirubin Total 2.1 mg/dL (0.0-1.0)
--- NOTE | 2023-03-13 13:45 | HO.PM.IMPN ---
Subjective Subjective Date of Service: 03/13/23 Interval History: Seen and evaluated improving but has significant edema HEart rate in 90s-100s Made -10.9L overnight No chest pain Review of Systems Review of Systems: Yes all other systems are reviewed and are negative Physical Exam Vital Signs: Vital Signs: Last Vital Signs Temp 98.1 F 03/13/23 11:37 Pulse 94 03/13/23 11:37 Resp 20 03/13/23 11:37 BP 126/72 03/13/23 11:37 Pulse Ox 97 03/13/23 11:37 O2 Del Method Room Air 03/13/23 11:37 BMI result Body Mass Index 33.4 Const: Other: Constitutional : Awake, interactive, not in distress Neck : Normal inspection, Supple Cardiovascular : irregular irregular, elevated JVP, +1 lower extremity edema Respiratory : good bilateral air entry, no crackles, wheezes or rhonchi Gastrointestinal: soft, lax, Normal bowel sounds, Non tender Skin : Warm, Dry Neurological : Alert & oriented x3, No focal deficit Objective Data Active Medications Acetaminophen (Acetaminophen 325 Mg Tablet) 650 mg PO Q6H PRN PRN Reason: Pain, Mild (Pain Scale 1-3) Amiodarone HCl (Amiodarone Hcl 200 Mg Tablet) 200 mg PO DAILY [facility] Last Admin: 03/13/23 08:41 Dose: 200 mg Documented By: VIVEK Apixaban (Apixaban 5 Mg Tablet) 5 mg PO BID [facility] Last Admin: 03/13/23 08:41 Dose: 5 mg Documented By: VIVEK Digoxin (Digoxin 0.125 Mg Tablet) 0.25 mg PO DAILY [facility] Docusate Sodium (Docusate Sodium 100 Mg Capsule) 100 mg PO DAILY PRN PRN Reason: Constipation Empagliflozin (Empagliflozin 10 Mg Tablet) 10 mg PO DAILY [facility] Last Admin: 03/13/23 08:41 Dose: 10 mg Documented By: VIVEK Folic Acid (Folic Acid 1 Mg Tablet) 1 mg PO DAILY [facility] Last Admin: 03/13/23 08:41 Dose: 1 mg Documented By: VIVEK Furosemide 200 mg/ Sodium (Chloride) 100 mls @ 2.5 mls/hr IVCONT .Q24H [facility] Last Admin: 03/13/23 12:02 Dose: 5 mg/hr, 2.5 mls/hr Documented By: VIVEK Magnesium Sulfate (Magnesium Sulfate/H2o) 2 gm in 50 mls @ 25 mls/hr IV ONCE ONE Stop: 03/13/23 14:53 Magnesium Oxide (Magnesium Oxide 400 Mg Tablet) 400 mg PO DAILY [facility] Last Admin: 03/13/23 11:13 Dose: 400 mg Documented By: VIVEK Metoprolol Succinate (Metoprolol Succinate Er 50 Mg Tab.Er.24h) 50 mg PO DAILY [facility]; Protocol Ondansetron HCl (Ondansetron Hcl 4 Mg/2 Ml Vial) 4 mg IVPUSH Q8H PRN PRN Reason: Nausea and Vomiting Pharmacy Consult (Consult Rx Etoh Phenob Im/Po) 1 each MISCELLANE ONCE PRN; Protocol PRN Reason: Consult order Potassium Chloride (Potassium Chloride Er 10 Meq Tablet.Er) 10 meq PO DAILY [facility] Last Admin: 03/13/23 08:40 Dose: 10 meq Documented By: VIVEK Sodium Chloride (0.9 % Sodium Chloride Flush 3 Ml Syringe) 3 ml IVFLUSH QSHIFT [facility] Last Admin: 03/13/23 08:38 Dose: Not Given Documented By: VIVEK Non-Admin Reason: IV Running Spironolactone (Spironolactone 25 Mg Tablet) 25 mg PO DAILY [facility]; Protocol Last Admin: 03/13/23 08:40 Dose: 25 mg Documented By: VIVEK Thiamine HCl (Thiamine Hcl 100 Mg Tablet) 100 mg PO DAILY [facility] Last Admin: 03/13/23 08:41 Dose: 100 mg Documented By: VIVEK Labs 03/12/23 05:50 03/13/23 06:15 Labs: Laboratory Results - last 24 hr 03/13/23 06:15 Anion Gap 12 Estim Creat Clear Calc 73.1 Estimated GFR 53 Random Glucose 92 Calcium 9.6 Total Bilirubin 2.1 H Direct Bilirubin 1.2 H AST 60 H ALT 65 H Alkaline Phosphatase 137 H B-Natriuretic Peptide 3167 H Total Protein 6.0 L Albumin 3.3 L Assessment and Plan (1) Elevated liver enzymes: Status: Acute (2) Hypomagnesemia: Status: Acute (3) Acute hypokalemia: Status: Acute (4) Acute on chronic congestive heart failure: Status: Acute (5) Atrial fibrillation with rapid ventricular response: Status: Acute Plan Pt is a 57-year-old male with a PMH significant for?persistent AFib Eliquis, alcoholic hepatitis, alcoholic cardiomyopathy, HTN, and HFrEF of 10-15% (echo 10/07/2022) who presents to the ED with?increasing lower leg edema, SOB, and dyspnea on exertion for the past 2 weeks. Pt will be admitted to the hospital for treatment and further evaluation of acute HFrEF exacerbation with IV Lasix and specialist consultation. Acute on chronic HFrEF exacerbation secondary to medication noncompliance, Continue Lasix drip @ 5mg/hr Continue spironolactone Follow lytes, mg, I/O Cardiology input appreciated , Lasix drip telemetry persistant AFib with RVR increase Digoxin dose to 0.25 mcg daily Continue Eliquis and amiodarone Continue Metoprolol Cardiology following Transaminitis 2/2 Alcohol use disorder Pt sates no longer drinks daily, now has 2-3 drinks 1-2 days a week on the weekend LFT trending down Continue thiamine, folic acid Monitor CIWA for possible withdrawal Acute hypomagnesemia replaced follow levels Acute hypokalemia replaced follow BMP Full Code DVT Prophylaxis: On Eliquis Pt will require a hospitalization overnight for treatment of?acute on chronic HFrEF exacerbation with IV diuretics, close monitoring Time Spent With Patient Time: Total time managing care of this patient today ____ minutes. Quality Stroke Does the patient have a stroke diagnosis?: No VTE Prior VTE?: No VTE Risk Level:: Medical - moderate - high VTE Device Contraindication: Treatment Not Indicated VTE Drug Contraindication: N/A - Med Ordered
[2023-03-13] MEDS: Magnesium Sulfate/H2O 2 GM/50 ML PIGGYBACK IV (14:36)
[2023-03-13 15:11] VITALS: BP 128/69; PULSE 80; RESP 18; TEMP 36.7; O2SAT 97
[2023-03-13] MEDS: 0.9 % Sodium Chloride Flush 3 ML SYRINGE IVFLUSH (16:46)
[2023-03-13 19:09] VITALS: BP 110/60; PULSE 80; RESP 20; TEMP 37; O2SAT 96
[2023-03-13 23:35] VITALS: BP 106/72; PULSE 96; RESP 20; TEMP 36.4; O2SAT 95
[2023-03-14 04:00] VITALS: BP 115/63; PULSE 98; RESP 20; TEMP 36.9; O2SAT 95
[2023-03-14 06:36] LABS: Anion Gap 12 (12-20); Blood Urea Nitrogen 23 mg/dL (9-16); Calcium 9.9 mg/dL (8.4-10.2); Carbon Dioxide 37 mmol/L (22-29); Chloride 90 mmol/L (96-108); Creatinine Clr Calc Pharmacy 78.1; Estimated Glomerular Filt Rate 57; Glucose Random 106 mg/dL (60-115); Potassium 3.3 mmol/L (3.3-5.1); Sodium 136 mmol/L (135-145)
[2023-03-14 06:37] LABS: Magnesium 1.8 mg/dL (1.6-2.6)
[2023-03-14 06:43] LABS: B Type Natriuretic Peptide 2143 pg/mL (<100)
[2023-03-14 08:00] VITALS: BP 109/73; PULSE 77; RESP 18; TEMP 36.2; O2SAT 98
[2023-03-14] MEDS: 0.9 % Sodium Chloride Flush 3 ML SYRINGE IVFLUSH (09:03)
[2023-03-14] MEDS: Metoprolol Succinate ER 50 MG TAB.ER.24H PO (09:04)
[2023-03-14] MEDS: Folic Acid 1 MG TABLET PO (09:04)
[2023-03-14] MEDS: Apixaban 5 MG TABLET PO (09:04)
[2023-03-14] MEDS: Thiamine HCL 100 MG TABLET PO (09:04)
[2023-03-14] MEDS: Magnesium Oxide 400 MG TABLET PO (09:04)
[2023-03-14] MEDS: Amiodarone HCL 200 MG TABLET PO (09:04)
[2023-03-14] MEDS: Digoxin 0.125 MG TABLET 0.25 MG PO (09:04)
[2023-03-14] MEDS: Spironolactone 25 MG TABLET PO (09:05)
[2023-03-14] MEDS: Potassium Chloride ER 10 MEQ TABLET.ER PO (09:05)
[2023-03-14] MEDS: Furosemide 40 MG TABLET PO (09:05)
[2023-03-14] MEDS: Empagliflozin 10 MG TABLET PO (09:05)
[2023-03-14] MEDS: Magnesium Sulfate/H2O 2 GM/50 ML PIGGYBACK IV (09:10)
[2023-03-14] MEDS: Potassium Chloride Packet 20 MEQ PACKET 40 MEQ PO ×2 (10:21→12:07)
--- NOTE | 2023-03-14 12:18 | PM.DS ---
DS: Providers Provider Date of Service: 03/14/23 Date of admission: 03/11/23 15:18 Primary care physician: Jerri Bennett MD Consults: 03/11/23 15:22 Consult to Cardiology Routine Consulting Provider: [facility] Cardiovascular Services Reason for consultation: HFrEF exacerbation DS: Diagnosis Discharge Diagnosis (1) Elevated liver enzymes: Status: Acute (2) Hypomagnesemia: Status: Acute (3) Acute hypokalemia: Status: Acute (4) Acute on chronic congestive heart failure: Status: Acute (5) Atrial fibrillation with rapid ventricular response: Status: Acute DS: Summary Hospital Course Hospital Course: Admission note HPI Pt is a 57-year-old male with a PMH significant for?persistent AFib Eliquis, alcoholic hepatitis, alcoholic cardiomyopathy, HTN, and HFrEF of 10-15% (echo 10/07/2022) who presents to the ED with?increasing lower leg edema, SOB, and dyspnea on exertion for the past 2 weeks. Patient has a long history of hospital admissions for CHF exacerbations secondary to medication noncompliance with last admission on 02/09-02/11/2023 where the patient was treated for pulmonary embolism and CHF exacerbation. Today, patient presents to the emergency room after noticing that his legs had ?swollen up like a balloons?. Patient also has noticed increased shortness of breath and dyspnea on exertion, particularly with walking up stairs. Also endorses orthopnea and 25 lb weight gain in the past 2-3 weeks. Patient admits he has again been noncompliant with his medications though he claims not intentionally, he just forgets to take his Lasix 1-2 times a week. However, he reports starting a new job where he does not want to take a bathroom break every 15 minutes. States he has switched taking his Lasix in the morning to taking it at night when he gets home from work around 23:30. However patient is supposed to be on furosemide 40 mg p.o. b.i.d. so appears to be getting, at best, only half his prescribed dose. Patient also reports he has not been taking his digoxin ?for months?; claims this was at the instruction of Dr. Baker the cardiology notes do not mention this. Reports occasional palpitations when he lays down to sleep at night. Denies chest pain/pressure. No fever, chills, nausea, vomiting, diarrhea, abdominal pain. Patient also has a long history of heavy alcohol use, though states he is now only occasionally drinking 2-3 drinks once or twice a week on the weekends. In the ED patient was afebrile but tachycardic up to 149, tachypneic up to 24, and hypertensive up to 141/91. Labs were significant for stable H&H 13.0/39.0, magnesium 1.5, bilirubin 4.0, AST 202, ALT 108, alk-phos 187, initial troponin 53.4 with repeat flat at 50.8, BNP 3676. Digoxin level subtherapeutic at 0.3. CXR showed a significant interval change in cardiomegaly, minimal atelectasis, or scar in the right mid lung zone since 02/08/2023. EKG demonstrated AFib with RVR of [address] no evidence of ST elevations or depressions. Pt was treated with furosemide 40 mg IV, verbal 5 mg IV, Mag sulfate, thiamine, digoxin 0.125 mg p.o., and this started on phenobarb protocol and IV Lasix drip. Pt will be admitted to the hospital for treatment and further evaluation of acute HFrEF exacerbation with IV Lasix and specialist consultation. Hospital course Admitted for treatment of Acute on chronic HFrEF exacerbation secondary to medication noncompliance, Treated with Lasix drip @ 5mg/hr, Metolazone and spironolactone with good response over the course of hospital stay as he make -19L negative balance with BNP trending down to his baseline of . Evaluated by cardiology who recommended better compliance with medications. Changed to 80mg lasix once daily with a plan to follow with cardiology as outpatient in 1 week. to have VNA to follow on his heart failure. He also developed persistant AFib with RVR. Controlled with higher doses of Metoprolol and loading Digoxin as levels were low. increase Digoxin dose to 0.25 mcg daily on discharge. Continue Eliquis and amiodarone with 50 mg MEtoprolol XL. Noted to have Transaminitis 2/2 Alcohol use disorder. He reports no longer drinks daily, now has 2-3 drinks 1-2 days a week on the weekend. LFT trended down. Placed on thiamine, folic acid and CIWA monitored inpatient. Acute hypomagnesemia, replaced with improvement. Acute hypokalemia, replaced with resolution. Increae Metoprolol to 50mg XL as outpatient Increase Digoxin to 0.25mcg as prescribed Lasix 80 mg once daily Restrict fluid intake to 32ox daily Follow with dr Baker as outpatient in 1 week Time Spent with Patient Time attestation: Total time managing care of this patient today ____ minutes. Discharge coordination time: Greater than 30 minutes Quality: Safe Use of Opioids Does Pt have an Active Cancer Diagnosis on the Problem List?: No Quality: Stroke Does the patient have a stroke diagnosis?: No Physical Exam Vital Signs: Vital Signs: Last Vital Signs Temp 97.2 F 03/14/23 08:00 Pulse 77 03/14/23 08:00 Resp 18 03/14/23 08:00 BP 109/73 03/14/23 08:00 Pulse Ox 98 03/14/23 08:00 O2 Del Method Room Air 03/14/23 08:00 BMI result Body Mass Index 33.4 Const: Other: Constitutional : Awake, interactive, not in distress Neck : Normal inspection, Supple Cardiovascular : irregular irregular, normal JVP, trace lower extremity edema Respiratory : good bilateral air entry, no crackles, wheezes or rhonchi Gastrointestinal: soft, lax, Normal bowel sounds, Non tender Skin : Warm, Dry Neurological : Alert & oriented x3, No focal deficit DS: Data Data Completed and Pending Completed studies during hospitalization [Text1]: Procedures Assistance with Respiratory Ventilation, Less than 24 Consecutive Hours, Continuous Positive Airway Pressure (12/22/22) Detoxification Services for Substance Abuse Treatment (02/08/23) Insertion of Endotracheal Airway into Trachea, Via Natural or Artificial Opening (11/11/21) Respiratory Ventilation, 24-96 Consecutive Hours (11/11/21) Advent of Cardiac Rhythm, Single (11/11/21) Labs on day of discharge: Laboratory Results - last 24 hr 03/13/23 03/14/23 06:15 06:07 Sodium 136 Potassium 3.3 Chloride 90 L Carbon Dioxide 37 H Anion Gap 12 BUN 23 H Creatinine 1.30 Estim Creat Clear Calc 78.1 Estimated GFR 57 Random Glucose 106 Calcium 9.9 Magnesium 1.8 Total Bilirubin 2.1 H Direct Bilirubin 1.2 H AST 60 H ALT 65 H Alkaline Phosphatase 137 H B-Natriuretic Peptide 2143 H Total Protein 6.0 L Albumin 3.3 L Imaging Chest x-ray: Radiologist's impression: ITS Impressions Chest X-Ray 03/11/23 09:50 IMPRESSION: No significant change in cardiomegaly, nor minimal atelectasis or scar in the right midlung zone since 02/08/2023. Discharge Plan Discharge Anticipated Discharge Date/Time: 03/13/23 12:09 Patient Disposition: Home Health Service Discharge Diagnosis: Heart failure exacerbation Afib w RvR Elevated liver enzymes Referrals: Jerri Bennett MD [Primary Care Provider] - 1 Week Discharge Medications: New metoprolol succinate 50 mg Tablet Extended Release 24 Hr 50 mg PO DAILY Qty: 90 0RF Protocol: Hold for SBP/HR < HOLD for SBP < : 90 HOLD for HR < : 60 magnesium oxide 400 mg (241.3 mg magnesium) Tablet 400 mg PO DAILY Qty: 90 0RF digoxin 125 mcg (0.125 mg) Tablet 0.25 mg PO DAILY Qty: 60 0RF Continued amiodarone 200 mg tablet 200 mg PO DAILY 90 Days Qty: 90 1RF Eliquis 5 mg tablet 5 mg PO BID Qty: 180 1RF Jardiance 10 mg tablet 10 mg PO DAILY Qty: 30 1RF potassium chloride 10 mEq tablet,ER particles/crystals 10 meq PO DAILY Qty: 14 0RF thiamine mononitrate (vit B1) [Vitamin B-1 (mononitrate)] 100 mg tablet 100 mg PO DAILY losartan 25 mg tablet 25 mg PO Q OTHER DAY Hold Instructions: Resume on 03/02/23. hold until seen by pcp folic acid 1 mg tablet 1 mg PO DAILY spironolactone 25 mg tablet 25 mg PO DAILY Changed furosemide 40 mg tablet 80 mg PO DAILY 90 Days Qty: 60 1RF Protocol: Hold for SBP< HOLD for SBP < : 90 Discontinued digoxin 125 mcg (0.125 mg) tablet 125 mcg PO DAILY metoprolol succinate [Toprol XL] 25 mg tablet extended release 24 hr 25 mg PO DAILY Qty: 30 0RF Discharge Orders: Discharge Order (Routine); Ordered 03/14/23 Ordered By: Titus Ordonez Diet: Low salt diet Activity on Discharge: As tolerated Stand Alone Forms: Patient Portal Discharge page, Work/School Release Care Plan Goals: Read below Health Concerns: Read below Plan of Treatment: Read below Assessment: You were admitted to the hospital for evaluation of difficulties breathing and edema in legs. found to be in heart failure. treated with IV lasix with good response over the course of hospital stay. seen by hands and dial inspector who recommended less water intake and better adherence to your medications. Your heart went into rapid rate. controlled with Digoxin and Metoprolol which was increased in dose. To be resumed as outpatient. Increae Metoprolol to 50mg XL as outpatient Increase Digoxin to 0.25mcg as prescribed Lasix 80 mg once daily Restrict fluid intake to 32ox daily Follow with dr Baker as outpatient in 1 week
--- NOTE | 2023-03-14 12:18 | PM.PNCARD ---
Subjective Subjective Date of Service: 03/14/23 Principal diagnosis: Decompensated congestive heart failure, atrial fibrillation. Interval history: Patient has diuresed over about 20 L. he is feeling better. Leg edema is improved. Shortness of breath is improved. Blood pressure heart rate have remained stable. He denies any lightheadedness, syncope. BNP is down trended to about 2100 Review of Systems Constitutional: Reports no additional constitutional complaints Physical Exam Vital Signs: Last Vital Signs Temp 97.2 F 03/14/23 08:00 Pulse 77 03/14/23 08:00 Resp 18 03/14/23 08:00 BP 109/73 03/14/23 08:00 Pulse Ox 98 03/14/23 08:00 O2 Del Method Room Air 03/14/23 08:00 BMI result Body Mass Index 33.4 Const General: cooperative, alert, awake, anxious and other (Aggressive) Nutritional Appearance: overweight Orientation/consciousness: patient oriented x3 Neck Neck: Yes trachea midline, Yes supple and Yes no JVD Resp Effort & Inspection: normal respiratory effort Auscultation: clear to auscultation bilaterally Cardio Jugular venous distension: no JVD Rhythm: abnormal rhythm irregularly irregular Heart sounds: S1 normal heart sound present, S2 normal heart sound present, no click, no gallops, no murmurs and no rubs GI Inspection: Yes distended Auscultation: normal bowel sounds Skin General skin exam: no rashes or lesions noted Neuro General: patient oriented x3 and no focal motor deficits Extrem General: No clubbing, No cyanosis and Yes edema (Much improved) Objective Labs and Meds 03/12/23 05:50 03/14/23 06:07 Lab results: Laboratory Results - last 24 hr 03/13/23 03/14/23 06:15 06:07 Sodium 136 Potassium 3.3 Chloride 90 L Carbon Dioxide 37 H Anion Gap 12 BUN 23 H Creatinine 1.30 Estim Creat Clear Calc 78.1 Estimated GFR 57 Random Glucose 106 Calcium 9.9 Magnesium 1.8 Total Bilirubin 2.1 H Direct Bilirubin 1.2 H AST 60 H ALT 65 H Alkaline Phosphatase 137 H B-Natriuretic Peptide 2143 H Total Protein 6.0 L Albumin 3.3 L Progress Note: A&P Assessment and plan (1) Acute exacerbation of CHF (congestive heart failure): Status: Acute Assessment and Plan: Decompensated congestive heart failure in this middle-aged man with prior severe nonischemic cardiomyopathy 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 High risk for recurrent hospitalization given his social situation and his mental status. We discussed again about importance of compliance with medications to avoid recurrent hospitalizations. He promises that he is going to follow through. Continue rate control with metoprolol. Continue digoxin therapy. Continue losartan, Jardiance and spironolactone. Lasix 80 mg daily is okay with me. Advised social service consultation (2) Atrial fibrillation with rapid ventricular response: Status: Acute Assessment and Plan: Atrial fibrillation better rate control. Continue metoprolol and digoxin therapy. Continue full oral anticoagulation Eliquis. Has failed rhythm control approach given his lack of compliance and now long-standing atrial fibrillation. Advised to follow up in the clinic in 7 days time. Thank you for allowing me to partake in his care Time Spent With Patient Time: Total time managing care of this patient today ____ minutes. Progress Note: Quality Stroke Does the patient have a stroke diagnosis?: No Procedures Date of Service Date of Service: 03/14/23
--- NOTE | 2023-03-14 12:54 | P.F2F_ITS ---
Service Date Service Date: 03/14/23 Encounter Date of encounter: 03/14/23 Reasons for Services Signs and symptoms assessed: Poorly controlled heart failure Reason for [facility]: medication management and teach disease management Homebound: Leaving the home is medically contraindicated at this time without the asist of a device and/or another person due th the listed conditions above and below. Reason homebound: other Certification: Based on the above findings, I certify that this patient is confined to the home and needs intermittent [facility] care, physical therapy and/or speech therapy, or continues to need occupational therapy. The patient is under my care, and I have initiated the establishment of the plan of care. The patient will be followed by a physician who will periodically review the plan of care. Time Spent With Patient Time: Total time managing care of this patient today ____ minutes.
--- NOTE | 2023-03-14 12:56 | MHC.CM.PN ---
order for home w/home health services. Referral sent to [facility] for nursing for CHF monitoring per MD. CM acknowledge.
--- NOTE | 2023-03-14 13:31 | MHC.CM.PN ---
[facility] never responded; alternate referrals sent. Pending responses.
--- NOTE | 2023-03-14 14:15 | MHC.CM.PN ---
All other agencies referred to for in-home care either do not have availability at this time or are not contracted with this insurance. Reached back out to [facility] and requested that when they get in on Wednesday03/15/23 am, to please sign Pt on to their service for nursing oversight. Notified them that indicated it os okay if there is a few days waiting period.
== END 2023-03-14 13:23 | disposition home health service (06) | DRG 194 ==
LOC: HO.ED 10:22 → HO.EDOVER 15:27 → HO.IMC 16:59
PROVIDERS: Admitting Provider Student in an Organized Health Care Education/Training Program; Emergency Provider Emergency Medicine; PCP Internal Medicine; Visit Provider Student in an Organized Health Care Education/Training Program
DX: I11.0 Hypertensive heart disease with heart failure (principal); I48.19 Other persistent atrial fibrillation; Z79.01 Long term (current) use of anticoagulants; I50.23 Acute on chronic systolic (congestive) heart failure; E87.6 Hypokalemia; F10.20 Alcohol dependence, uncomplicated; E83.42 Hypomagnesemia; Z91.148 Patient's other noncompliance with medication regimen for other reason; Z79.899 Other long term (current) drug therapy
CPT/HCPCS: 36415; 71045; 80048; 80076; 80162; 80307; 83735; 83880; 84484; 85025; 85027; 85610; 85730; 93005; 99285; J1160; J1940; J3411; J3475

== ENCOUNTER → 2023-03-11 15:18 | Outpatient (BNV) | payer OTHER, SELFPAY | PROVIDERS: Admitting Provider Student in an Organized Health Care Education/Training Program; Emergency Provider Emergency Medicine; PCP Internal Medicine; Visit Provider Student in an Organized Health Care Education/Training Program | DX: E83.42 Hypomagnesemia (principal); I50.9 Heart failure, unspecified; I48.91 Unspecified atrial fibrillation; E87.6 Hypokalemia; R74.8 Abnormal levels of other serum enzymes | CPT/HCPCS: 99223; 99233; 99239; G0180 ==

== ENCOUNTER → 2023-03-11 15:18 | Outpatient (BNV) | payer OTHER, SELFPAY | PROVIDERS: Admitting Provider Student in an Organized Health Care Education/Training Program; Emergency Provider Emergency Medicine; PCP Internal Medicine; Visit Provider Internal Medicine Cardiovascular Disease | DX: I50.23 Acute on chronic systolic (congestive) heart failure (principal); I48.91 Unspecified atrial fibrillation | CPT/HCPCS: 99222; 99233 ==

== ENCOUNTER 2023-04-20 12:10 | Inpatient (IN) | payer OTHER, SELFPAY ==
[2023-04-20] VITALS (12 sets, daily range): BP systolic 105–143; BP diastolic 71–94; PULSE 80–152; RESP 14–22; TEMP 36.1–37.1; O2SAT 92–99; BMI 28.7
--- NOTE | ~2023-04-20 | CT_ITS ---
EXAMINATION: CT HEAD WITHOUT CONTRAST CLINICAL INFORMATION: Fall. Trauma. COMPARISON: None available. TECHNIQUE: Contiguous axial imaging was performed from the skull base to vertex without intravenous administration of contrast. This CT examination was performed using dose optimization techniques as appropriate, variously including the following: *Automated exposure control *Adjustment of mA and/or kV according to patient size (this includes techniques or standardized protocols for targeted exams where dose is matched to indication/reason for exam; i.e. extremities or head) *Use of iterative reconstruction technique DLP: 759 mGy-cm FINDINGS: There is cerebral volume loss with prominence of the lateral and third ventricles. The cortical sulci are widened appropriately. The fourth ventricle and basal cisterns are normally outlined. There is no acute territorial defect, hemorrhage or midline shift. The extra-axial spaces are unremarkable. Calvarium/scalp: The calvarium is intact. There appears to be mild right frontal/forehead soft tissue swelling. Maxillofacial sinuses and mastoids: Clear as visualized. CT/CT head/brain wo IV con IMPRESSION: Mild cerebral volume loss. No acute intracranial abnormality. There appears to be mild right frontal/forehead soft tissue swelling.
--- NOTE | ~2023-04-20 | XR_ITS ---
EXAMINATION: XR CHEST CLINICAL INFORMATION: Atrial fibrillation. COMPARISON: 03/11/2023. TECHNIQUE: Frontal view of the chest was obtained. FINDINGS: The lung volumes are low. The cardiac silhouette is enlarged but stable. There is no focal lung consolidation or pleural effusion. The bony structures and soft tissues are unremarkable. XR/XR chest 1V IMPRESSION: Stable enlarged cardiac silhouette. No active cardiopulmonary disease.
--- NOTE | 2023-04-20 12:19 | ED_ITS ---
HPI - General Adult General Chief complaint: Psychiatric Symptoms Stated complaint: SEC12 BY CPD,SI/TO JUMP FROM 3RD STORY,ETOH USE Time Seen by Provider: 04/20/23 12:18 Source: patient, EMS, RN notes reviewed and old records reviewed Mode of arrival: EMS History of Present Illness HPI narrative: 57-year-old male with past medical history of AFib, PE on Eliquis, cardiomyopathy EF 10-15% due to ETOH abuse, CHF, HTN, presenting to the ED via EMS on Section 12 from [employer] for ETOH intoxication and SI with plan to jump off a 3rd story building. Patient admits his mother on , has been having increasing depression since. Denies SI at present, however admits he reported SI to PD. Admits to drinking half a bottle of vodka today, last drink around 12:00pm, denies hx withdrawal seizures. Reports unknown injury or fall, states he believes he fell however does not remember. Denies headache, neck/back pain, CP/SOB, illicit substance use or HI. Onset (ago): day(s) Related Data Home Medications Medication Instructions Recorded Confirmed thiamine mononitrate (vit B1) 100 100 mg PO DAILY 09/16/22 03/11/23 mg tablet (Vitamin B-1 (mononitrate)) Previous Rx's Medication Instructions Recorded amiodarone 200 mg tablet 200 mg PO DAILY 90 days #90 tabs 12/31/21 apixaban 5 mg tablet (Eliquis) 5 mg PO BID #180 tabs 12/31/21 empagliflozin 10 mg tablet 10 mg PO DAILY #30 tabs 11/18/22 (Jardiance) magnesium oxide 400 mg (241.3 mg 400 mg PO DAILY #90 tabs 03/13/23 magnesium) tablet metoprolol succinate 50 mg 50 mg PO DAILY #90 tabs 03/13/23 tablet,extended release 24 hr digoxin 125 mcg (0.125 mg) tablet 0.25 mg (2 x 125 mcg (0.125 mg)) 03/14/23 PO DAILY #60 tabs furosemide 40 mg tablet 80 mg PO DAILY 30 days #60 tabs 04/13/23 losartan 25 mg tablet 25 mg PO Q OTHER DAY 30 days #15 04/13/23 tabs folic acid 1 mg tablet 1 mg PO DAILY #90 tabs 04/14/23 spironolactone 25 mg tablet 25 mg PO DAILY #90 tabs 04/14/23 Allergies Allergy/AdvReac Type Severity Reaction Status Date / Time No Known Allergies Allergy Verified 03/11/23 08:50 [No Known Allergies*] Review of Systems 2 Review of Systems: Constitutional: No Fever, No Chills, No Fatigue, No Malaise ENT/Mouth: No Ear Pain, No Nasal Congestion, No sore throat, No Rhinorrhea, No Swallowing Difficulty Eyes: No Eye Pain, No Swelling, No Redness Cardiovascular: No Chest Pain, No SOB Respiratory: No Cough, No Sputum, No Dyspnea Gastrointestinal: No Nausea, No Vomiting, No Diarrhea, No Constipation, No Abdominal pain Musculoskeletal: No joint pain, No Myalgias, No Joint Swelling Skin: No Skin Lesions, No rash Neuro: No Weakness, No Loss of Consciousness, No Dizziness, No Headache Psych: No Anxiety/Panic, +Depression, No SI/HI/AH/VH, + Social Issues Yes all other systems are reviewed and are negative Constitutional: Constitutional: Reports as per HPI Neurologic: Denies Abnormal speech present [facility] Past Medical History Attestation statement: The following information was validated with the patient. Source: old records reviewed Medical History Chronic HFrEF (heart failure with reduced ejection fraction) Cardiomyopathy Atrial fibrillation with rapid ventricular response Alcohol dependence with withdrawal Alcoholic hepatitis HTN (hypertension) Surgical History No pertinent past surgical history Family History Family History Father CAD (coronary artery disease) Mother Atrial fibrillation Social History Social History Household Members: None Housing: Apartment Do you presently have visiting nurse or other home services: No Unable to assess alcohol history related to: Unable to respond Alcohol intake: current Alcohol intake frequency: 3 or more drinks per day Alcohol type: hard liquor Patient Tobacco Use Status: Never used Tobacco Smoked in Last 30 Days: No Second Hand Smoke Exposure: No Use of substances other than those prescribed or required for medical reasons: No Advance Directives: Yes Advance Directives on File: Yes Advance Directives Date on File: 02/12/23 service: No Current occupational status: unemployed Physical Exam ED Vital Signs: Vital Signs - 24 hr 04/20/23 12:38 04/20/23 13:48 04/20/23 14:03 Temperature 97.0 F 98.6 F Pulse Rate 147 H 145 H 152 H Respiratory Rate 14 14 20 Blood Pressure 127/87 129/94 H 143/82 H Pulse Oximetry 94 96 96 Oxygen Delivery Method Room Air Room Air Room Air 04/20/23 14:16 04/20/23 14:55 04/20/23 15:10 Temperature Pulse Rate 128 H 124 H 117 H Respiratory Rate 20 20 Blood Pressure 114/82 126/91 H Pulse Oximetry 95 95 Oxygen Delivery Method Room Air Room Air 04/20/23 15:29 04/20/23 16:13 Temperature Pulse Rate 115 H 118 H Respiratory Rate 20 Blood Pressure 108/79 110/85 Pulse Oximetry Oxygen Delivery Method BMI result Body Mass Index 28.7 Const Other: + ETOH odor on breath General: cooperative, no acute distress, anxious and intoxicated appearing Orientation/consciousness: patient oriented x3 Limitations: no limitations HENMT Other: Dry blood noted to forehead with out evidence of trauma or abrasion/laceration. Head: Yes normal to inspection and Yes atraumatic Ears: hearing grossly normal bilaterally General nose exam: Normal external nose present Face and sinus: Yes normal facial exam Eyes General: appearance normal, both eyes and all related structures Pupils: Dilated pupils bilaterally EOM: EOMs intact bilaterally Direct Ophthalmoscopy: normal light reflex Neck Other: No midline cervical spinous tenderness Neck: Yes normal visual inspection and Yes no meningeal signs Resp Effort & Inspection: normal respiratory effort and no respiratory distress Auscultation: clear to auscultation bilaterally Cardio Rate: regular rate Heart sounds: S1 normal heart sound present and S2 normal heart sound present GI Inspection: Yes normal to inspection Palpation (GI): Soft to palpation, Tenderness to palpation present (GI) in the epigastrum, no guarding and not rigid Back/Spine/Pelvis Other: No midline cervical/thoracic/lumbar spinous tenderness/step-off or deformity Skin Rashes: no rashes Wounds: no wounds Neuro General: patient oriented x3, tone normal, moves all extremities, no meningeal signs, no focal motor deficits and CN's II-XI intact bilaterally Cranial nerves: Yes CN's II-XII intact bilaterally Speech: No Abnormal speech present Motor exam (neuro): 5/5 motor strength present throughout, no tremor noted and Motor fasciculations not present Extrem General: Yes normal to inspection Psych Other: Tearful Thought content: suicidality, no homicidality and Depressive thoughts present Course Course Course Narrative: -1341--patient noted to be in AFib with RVR rate of 147. Patient with history of AFib. Denies taking any of his home meds today. 2.5mg of IV Metoprolol ordered. -1425--heart rate improved to 120's > will give additional 2.5 mg of IV metoprolol -H&H stable. No leukocytosis. BUN chronically elevated. Chronically elevated bilirubin suspect from chronic ETOH abuse. -ethanol 383 -1453-- HR down to 116-125 > will dose w/additional 2.5 mg IV Metoprolol and then dose with home PO Amiodarone -section 12 signed and in patient's chart -BNP chronically elevated. Troponin 21.2, elevated in the past likely from demand CT head/brain wo IV con IMPRESSION: Mild cerebral volume loss. No acute intracranial abnormality. There appears to be mild right frontal/forehead soft tissue swelling. > 1535-- Heart rate 112-123 >> will give IV Digoxin. Case discussed with hospitalist, Dr. Bennett who recommended cardiology consult. Consulted Cardiology, Dr. Rojas, suspicious patient is medication noncompliance. Current medications appropriate, recommended time due to EtOH, heart rate will likely be elevated. Patient admitted for further management. Medications Administered Discontinued Medications Generic Name Dose Route Start Last Admin Trade Name Freq PRN Reason Stop Dose Admin Amiodarone HCl 200 mg 04/20/23 14:49 04/20/23 15:28 Amiodarone Hcl 200 Mg Tablet PO 04/20/23 14:50 200 mg ONCE ONE Administration Digoxin 0.25 mg 04/20/23 15:34 04/20/23 16:12 Digoxin 0.5 Mg/2 Ml Ampul IVPUSH 04/20/23 15:35 0.25 mg ONCE ONE Administration Folic Acid 1 mg 04/20/23 14:27 04/20/23 14:33 Folic Acid 1 Mg Tablet PO 04/20/23 14:28 1 mg ONCE ONE Administration Lorazepam 0.5 mg 04/20/23 13:43 04/20/23 14:11 Lorazepam 2 Mg/Ml Vial IVPUSH 04/20/23 13:44 0.5 mg STAT STA Administration Metoprolol Tartrate 2.5 mg 04/20/23 13:33 04/20/23 14:11 Metoprolol Tartrate 5 Mg/5 Ml Vial IVPUSH 04/20/23 13:34 2.5 mg ONCE ONE Administration Metoprolol Tartrate 2.5 mg 04/20/23 14:24 04/20/23 14:33 Metoprolol Tartrate 5 Mg/5 Ml Vial IVPUSH 04/20/23 14:25 2.5 mg ONCE ONE Administration Metoprolol Tartrate 2.5 mg 04/20/23 14:55 04/20/23 15:06 Metoprolol Tartrate 5 Mg/5 Ml Vial IVPUSH 04/20/23 14:56 2.5 mg ONCE ONE Administration Thiamine HCl 100 mg 04/20/23 13:42 04/20/23 14:11 Thiamine Hcl 100 Mg Tablet PO 04/20/23 13:43 100 mg ONCE ONE Administration Medical Decision Making Medical Decision Making MDM Narrative: 57-year-old male with past medical history of AFib, PE on Eliquis, cardiomyopathy EF 10-15% due to ETOH abuse, CHF, HTN, presenting to the ED via EMS on Section 12 from [facility] for ETOH intoxication and SI with plan to jump off a 3rd story building. On tachycardic likely from anxiety, NAD, ETOH odor on breath, intoxicated, dry blood noted to forehead, no evidence of trauma, no midline spinous tenderness throughout or focal neuro deficits. Abdomen soft with epigastric tenderness without rebound or guarding. Concern for ETOH intoxication and depression vs ICH/fractures or injury. Rule out pancreatitis versus gastritis. Plan: EKG, labs, tox screen, head CT, CARE consult Please refer to course for remaining clinical decision making, interpretation of labs/imaging results, and discussions with consultants and/or family members. Differential Diagnosis Differential Diagnoses: The differential diagnosis associated with the presentation includes As above Admission/Observation Consideration of admission/observation: Escalation of care including admission/observation considered Lab Data [facility] Lab Attestation statement: I reviewed the patient's lab results. 04/20/23 13:39 04/20/23 13:39 Labs: Lab Results 04/20/23 Range/Units 13:39 WBC 5.7 (4.8-10.8) X10*3/uL RBC 3.79 L (4.60-5.80) X10*6/uL Hgb 13.7 L (14.0-18.0) g/dl Hct 41.7 L (42.0-52.0) % MCV 110.0 H (80.0-98.0) fL MCH 36.1 H (27.0-33.0) pg MCHC 32.9 (31.0-36.0) g/dl RDW 16.2 H (11.0-16.0) % Plt Count 168 (160-400) X10*3/uL MPV 9.8 (9.4-12.4) fL Immature Gran % (Auto) 0.5 H (0.0-0.4) % Neut % (Auto) 73.7 H (45-73) % Lymph % (Auto) 16.0 L (20-40) % [place] % (Auto) 8.9 (2-11) % Eos % (Auto) 0.0 (0-4) % Baso % (Auto) 0.9 (0-2) % Lymph # (Auto) 0.9 L (1.2-4.9) X10*3/uL [place] # (Auto) 0.5 (0.1-1.2) X10*3/uL Eos # (Auto) 0.0 (0.0-0.4) X10*3/uL Baso # (Auto) 0.1 (0.0-0.2) X10*3/uL Abs Immat Gran (auto) 0.03 (0.00-0.03) X10*3/uL Absolute Neuts (auto) 4.2 (2.0-8.3) x10*3/uL Absolute Nucleated RBC 0.000 (0.0-0.012) X10*3/uL Nucleated RBC % (auto) 0.0 (0.0-0.2) /100WBC Sodium 142 (135-145) mmol/L Potassium 3.8 (3.3-5.1) mmol/L Chloride 107 (96-108) mmol/L Carbon Dioxide 19 L (22-29) mmol/L Anion Gap 20 (12-20) BUN 18 H (9-16) mg/dL Creatinine 1.21 (0.5-1.4) mg/dL Estim Creat Clear Calc 78.1 Estimated GFR > 60 Random Glucose 122 H (60-115) mg/dL Calcium 8.9 D (8.4-10.2) mg/dL Magnesium 1.9 (1.6-2.6) mg/dL Total Bilirubin 1.2 H (0.0-1.0) mg/dL Direct Bilirubin 0.7 H (0.0-0.5) mg/dL AST 36 (5-37) U/L ALT 19 (0-40) U/L Alkaline Phosphatase 122 H (39-117) U/L Troponin I High Sens 21.2 D (<3.5-35.0) ng/L B-Natriuretic Peptide 1090 H (<100) pg/mL Total Protein 7.4 (6.5-8.0) g/dL Albumin 4.0 (3.5-5.0) g/dL Lipase 11 (8-78) U/L Ethyl Alcohol 383 H* mg/dL Independent Interpretation I performed an independent interpretation of an: EKG (My interpretation EKG is AFib with RVR at a rate of 147. Q-waves in V1 and V2. No STEMI. No significant change when compared to prior) Radiology Impression Discussion of test interpretation with radiology: I have reviewed the radiologist's reading. External Record Review External record reviewed: Inpatient record, Office record, Outpatient record, Prior outpatient labs, Prior outpatient radiology, Primary care record and Outside ED record Tests considered The following testing was considered but not selected: As above Critical Care Time Critical Care Time Critical Care Time: Yes Total Critical Care Time: 60 Attestation: I have personally provided critical care time exclusive of time spent on separately billable procedures. Time includes review of lab data, radiology results, discussion with consultants, and monitoring for potential decompensation. Intervention performed as documented. Discharge Plan Discharge Clinical Impression: Atrial fibrillation with rapid ventricular response, Suicidal ideations, Alcohol intoxication Patient Disposition: Admitted As Inpatient Interventions: [place]-Suicide Risk Severity Scale Last Done: 04/20/23 12:44
--- NOTE | 2023-04-20 12:42 | ECG_ITS ---
Test Reason : TACHYCARDIA Blood Pressure : / mmHG Vent. Rate : 147 BPM Atrial Rate : 000 BPM P-R Int : 000 ms QRS Dur : 112 ms QT Int : 316 ms P-R-T Axes : 000 061 226 degrees QTc Int : 494 ms Atrial fibrillation with rapid ventricular response Intra-ventricular conduction delay ST depression in Lateral leads Abnormal ECG When compared with ECG of 11-MAR-2023 09:04, ST more depressed Lateral leads Premature ventricular complexes is no longer Present Referred By: Sandie Álvarez Electronically Signed By:KASEY MONTELONGO MD
[2023-04-20 13:53] LABS: MANUAL DIFF FLAG NO
[2023-04-20 14:00] LABS: Basophils Absolute Auto 0.1 X10*3/uL (0.0-0.2); Basophils Percent Auto 0.9 % (0-2); Hematocrit 41.7 % (42.0-52.0); Hemoglobin 13.7 g/dl (14.0-18.0); Imm Gran Abs Auto 0.03 X10*3/uL (0.00-0.03); Imm Gran Pct Auto 0.5 % (0.0-0.4); Lymphocytes Absolute Auto 0.9 X10*3/uL (1.2-4.9); Mean Corpuscular HGB Conc 32.9 g/dl (31.0-36.0); Mean Corpuscular Hemoglobin 36.1 pg (27.0-33.0); Mean Platelet Volume 9.8 fL (9.4-12.4); Monocytes Absolute Auto 0.5 X10*3/uL (0.1-1.2); Monocytes Percent Auto 8.9 % (2-11); Neutrophils Absolute Auto 4.2 x10*3/uL (2.0-8.3); Neutrophils Percent Auto 73.7 % (45-73); Platelet Count 168 X10*3/uL (160-400); Red Blood Count 3.79 X10*6/uL (4.60-5.80); Red Cell Distribution Width 16.2 % (11.0-16.0); White Blood Count 5.7 X10*3/uL (4.8-10.8)
[2023-04-20 14:09] LABS: Alanine Aminotransferase 19 U/L (0-40); Alkaline Phosphatase 122 U/L (39-117); Anion Gap 20 (12-20); Aspartate Amino Transferase 36 U/L (5-37); Bilirubin Direct 0.7 mg/dL (0.0-0.5); Bilirubin Total 1.2 mg/dL (0.0-1.0); Blood Urea Nitrogen 18 mg/dL (9-16); Calcium 8.9 mg/dL (8.4-10.2); Carbon Dioxide 19 mmol/L (22-29); Chloride 107 mmol/L (96-108); Creatinine Clr Calc Pharmacy 78.1; Estimated Glomerular Filt Rate > 60; Ethanol 383 mg/dL; Glucose Random 122 mg/dL (60-115); Lipase 11 U/L (8-78); Magnesium 1.9 mg/dL (1.6-2.6); Potassium 3.8 mmol/L (3.3-5.1); Sodium 142 mmol/L (135-145); Total Protein 7.4 g/dL (6.5-8.0)
[2023-04-20] MEDS: LORazepam 2 MG/ML VIAL 0.5 MG IVPUSH (14:11)
[2023-04-20] MEDS: Metoprolol Tartrate 5 MG/5 ML VIAL 2.5 MG IVPUSH ×3 (14:11→15:06)
[2023-04-20] MEDS: Thiamine HCL 100 MG TABLET PO (14:11)
--- NOTE | 2023-04-20 14:16 | PC.NURSE ---
rapid afib on EKG, HR 155-165, other vss, 20 G IV placed right AC, pt medicated per SEP. pt pending CT results.
[2023-04-20] MEDS: Folic Acid 1 MG TABLET PO (14:33)
--- NOTE | 2023-04-20 14:35 | PC.NURSE ---
pt medicated per mar, resting quietly, 1:1 at bedside.
--- NOTE | 2023-04-20 14:36 | MHC.EDTECH ---
@2633 CALL RECEIVED FROM PT SISTER JIMENEZ LIRIANO TO SPEAK WITH PT RN, RN IS BUSY WITH ANOTHER PT @ THIS TIME ASKS FOR MESSAGE TO BE TAKEN. SHE LEAVES PHONE NUMBER FOR RN TO REACH OUT TO HER [phone]
--- NOTE | 2023-04-20 15:00 | PC.NURSE ---
called pharmacy for all the po medications unable to override those meds
[2023-04-20 15:07] LABS: Troponin-I High Sensitivity 21.2 ng/L (<3.5-35.0)
--- NOTE | 2023-04-20 15:13 | PC.NURSE ---
pt is alert and oriented, skin pwd, respirations even and unlabored, pt denies pain at this time, pt also denies si at this time-states that he did make that statement earlier but its only because his mom last and he did not know what to do with himself.
[2023-04-20 15:14] LABS: B Type Natriuretic Peptide 1090 pg/mL (<100)
--- NOTE | 2023-04-20 15:15 | MHC.CARE ---
Giuliana Ulisses [phone]. Pt has warrant issued for a 35 out of [place], however was transferred to [place]. She reports she will call in AM to check on his status as he presents to [facility] ED with ETOH 383 and reporting suicidal ideation.
--- NOTE | 2023-04-20 15:27 | PC.NURSE ---
belongings list completed, belongings secured in [employer] # 11
[2023-04-20] MEDS: Amiodarone HCL 200 MG TABLET PO (15:28)
[2023-04-20] MEDS: Digoxin 0.5 MG/2 ML AMPUL 0.25 MG IVPUSH (16:12)
--- NOTE | 2023-04-20 16:59 | PM.IMHP ---
History of Present Illness Date of Service: 04/20/23 Attending physician on admission: Miranda Beauchamp Chief Complaint: SI 57-year-old male with past medical history of AFib, PE on Eliquis, cardiomyopathy EF 10-15% due to ETOH abuse, CHF, HTN, presenting to the ED via EMS on Section 12 from [facility] for ETOH intoxication and SI with plan to jump off a 3rd story building. Patient admits his mother on , has been having increasing depression since. Denies SI at present, however admits he reported SI to PD. Admits to drinking half a bottle of vodka today, last drink around 12:00pm, denies hx withdrawal seizures. He currently denies any lightheadedness, palpitations, shortness of breath, or chest pain. No nausea, vomiting, abdominal pain, tremors, confusion, AH, VH. Denies any falls. On arrival, patient tachycardic to 152, improved to 118 but still ranging intermittently to 140s with 0.25 mg IV digoxin, 2.5 mg IV Lopressor x3, 200mg amiodarone. Blood pressure stable. Hematology studies consistent with baseline, unremarkable. Renal function and electrolyte levels normal except for CO2 19. Troponin within normal limits, BNP 1090, improved. Ethyl alcohol level 383. Last dig level 0.3 03/2023. Head CT negative for any acute intracranial abnormality but does show mild cerebral volume loss as well as some mild soft tissue swelling of the right frontal/forehead. CXR shows stable enlarged cardiac silhouette but no acute cardiopulmonary abnormality. EKG shows atrial fibrillation with RVR, rate 147 with out any acute changes in ST/T waves. Review of Systems Review of Systems: General: No fevers, malaise, unintentional weight loss HEENT: No blurred vision, diplopia. No sore throat, nasal congestion, rhinorrhea, sinus pain, ear pain Cardiovascular: No chest pain, palpitations, or leg edema Respiratory: No shortness of breath, wheezing, cough GI: No abdominal pain, nausea, vomiting, diarrhea, constipation, melena, hematochezia : No dysuria, hematuria, increased urinary frequency, decreased urinary output MSK: No myalgia, back pain Neuro: No headaches, weakness, paresthesias Skin: No rashes or lesions [facility] Medical History Chronic HFrEF (heart failure with reduced ejection fraction) Cardiomyopathy Atrial fibrillation with rapid ventricular response Alcohol dependence with withdrawal Alcoholic hepatitis HTN (hypertension) Family History Father CAD (coronary artery disease) Mother Atrial fibrillation Surgical History No pertinent past surgical history Social History Household Members: None Housing: Apartment Do you presently have visiting nurse or other home services: No Unable to assess alcohol history related to: Unable to respond Alcohol intake: current Alcohol intake frequency: 3 or more drinks per day Alcohol type: hard liquor Patient Tobacco Use Status: Never used Tobacco Smoked in Last 30 Days: No Second Hand Smoke Exposure: No Use of substances other than those prescribed or required for medical reasons: No Advance Directives: Yes Advance Directives on File: Yes Advance Directives Date on File: 02/12/23 service: No Current occupational status: unemployed Meds Allergies Allergy/AdvReac Type Severity Reaction Status Date / Time No Known Allergies Allergy Verified 03/11/23 08:50 [No Known Allergies*] Active Medications: Current Medications Acetaminophen (Acetaminophen 325 Mg Tablet) 650 mg PO Q6H PRN PRN Reason: Pain, Mild (Pain Scale 1-3) Docusate Sodium (Docusate Sodium 100 Mg Capsule) 100 mg PO DAILY PRN PRN Reason: Constipation Metoprolol Tartrate (Metoprolol Tartrate 5 Mg/5 Ml Vial) 2.5 mg IVPUSH Q6H PRN PRN Reason: Hear rate >110 Ondansetron HCl (Ondansetron Hcl 4 Mg/2 Ml Vial) 4 mg IVPUSH Q8H PRN PRN Reason: Nausea and Vomiting Sodium Chloride (0.9 % Sodium Chloride Flush 3 Ml Syringe) 3 ml IVFLUSH [facility] Medications Medication Instructions Recorded Confirmed Last Taken Type thiamine mononitrate (vit B1) 100 100 mg PO DAILY 09/16/22 04/20/23 04/18/23 History mg tablet (Vitamin B-1 (mononitrate)) Physical Exam Vital Signs and Narrative: Vital Signs: Last Vital Signs Temp 98.6 F 04/20/23 13:48 Pulse 118 H 04/20/23 16:13 Resp 20 04/20/23 15:29 BP 110/85 04/20/23 16:13 Pulse Ox 95 04/20/23 15:10 O2 Del Method Room Air 04/20/23 15:10 BMI result Body Mass Index 28.7 Constitutional - Awake and Alert, No apparent distress Eyes - PERRLA, EOMI Cardiovascular - S1S2, RRR, 1+ BLE edema Respiratory - Normal lung expansion, Normal respiratory effort, No respiratory distress, CTA bilaterally Gastrointestinal - NT / ND; +BS; No rebound or guarding Extremities - no calf tenderness bilaterally, no swelling Skin - Warm/Dry Neurological - Alert & oriented x3 Psychological - Appropriate affect, intoxicated. Currently denies SI/HI, no AH/VH Results Labs 04/20/23 13:39 04/20/23 13:39 Labs: Laboratory Results - last 24 hr 04/20/23 13:39 MCV 110.0 H MCH 36.1 H MCHC 32.9 RDW 16.2 H Plt Count 168 MPV 9.8 Immature Gran % (Auto) 0.5 H Neut % (Auto) 73.7 H Lymph % (Auto) 16.0 L [place] % (Auto) 8.9 Eos % (Auto) 0.0 Baso % (Auto) 0.9 Lymph # (Auto) 0.9 L [place] # (Auto) 0.5 Eos # (Auto) 0.0 Baso # (Auto) 0.1 Abs Immat Gran (auto) 0.03 Absolute Neuts (auto) 4.2 Absolute Nucleated RBC 0.000 Nucleated RBC % (auto) 0.0 Anion Gap 20 Estim Creat Clear Calc 78.1 Estimated GFR > 60 Random Glucose 122 H Calcium 8.9 D Magnesium 1.9 Total Bilirubin 1.2 H Direct Bilirubin 0.7 H AST 36 ALT 19 Alkaline Phosphatase 122 H B-Natriuretic Peptide 1090 H Total Protein 7.4 Albumin 4.0 Lipase 11 Ethyl Alcohol 383 H* Imaging Radiologist's Impressions: Impressions Head CT 04/20/23 14:24 IMPRESSION: Mild cerebral volume loss. No acute intracranial abnormality. There appears to be mild right frontal/forehead soft tissue swelling. Chest X-Ray 04/20/23 15:42 IMPRESSION: Stable enlarged cardiac silhouette. No active cardiopulmonary disease. Assessment and Plan (1) Alcohol intoxication: Status: Acute (2) Suicidal ideations: Status: Acute (3) Atrial fibrillation with rapid ventricular response: Status: Acute Plan 57-year-old male with past medical history of AFib, PE on Eliquis, cardiomyopathy EF 10-15% due to ETOH abuse, CHF, HTN admitted for Atrial Fibrillation with RVR and acute alcohol intoxication patient with SI. # atrial fibrillation with RVR -tachycardia likely complicated by acute intoxication -received 0.25 mg IV digoxin, 200 mg amiodarone in the ED -continue metoprolol 2.5 mg IV q.6h p.r.n. -continue Eliquis 5 mg b.i.d. for anticoagulation -cardiology consult -cardiac diet -monitor on telemetry #Acute alcohol intoxication at risk for severe withdrawal -ethyl alcohol level at 13:00 386 -monitor on CIWA -IV thiamine and folic acid daily -continue 400 mg magnesium # depression with SI -patient brought in after reporting SI with plan to jump off 3rd Story building -sitter consult -will need clearance from care team prior to discharge # history of pulmonary embolism -continue Eliquis #HFrEF/cardiomyopathy -no acute exacerbation -continue oral diuretics, beta blockers, Jardiance # hypertension -blood pressure reasonably controlled -continue furosemide, metoprolol DVT prophylaxis-Eliquis Full code Patient requires inpatient stay at least 2 midnights for management of atrial fibrillation with RVR and acute alcohol intoxication at risk for severe withdrawal reporting SI Time Spent With Patient Time: Total time managing care of this patient today ____ minutes. Quality Stroke Does the patient have a stroke diagnosis?: No VTE Prior VTE?: Yes VTE Risk Level:: Medical - moderate - high VTE Device Contraindication: Treatment Not Indicated VTE Drug Contraindication: N/A - Med Ordered
--- NOTE | 2023-04-20 17:08 | PHA.MEDREC ---
Pharmacy Consult ? Medication Reconciliation Pharmacy has completed the medication reconciliation. Patient not confident on any of his medications. Went through list and he stated if its on there then yes. Medication list match discharge summary 03/14/23. Claim history does not show fills for amiodarone, apixaban or digoxin. Per Dr. Baker's report patient should be on medications. Call [facility] to confirm when medications were last picked. Patient has not picked up amiodarone since 05/26. apixaban since 09/24 and digoxin since 12/25. Judy Lowe ,PharmD
[2023-04-20 17:38] LABS: Troponin-I High Sensitivity 25.9 ng/L (<3.5-35.0)
[2023-04-21] MEDS: 0.9 % Sodium Chloride Flush 3 ML SYRINGE IVFLUSH ×2 (00:21→08:57)
[2023-04-21 04:00] VITALS: BP 136/75; PULSE 113; RESP 18; TEMP 37.1; O2SAT 98
[2023-04-21] MEDS: Metoprolol Tartrate 5 MG/5 ML VIAL 2.5 MG IVPUSH (05:03)
[2023-04-21 07:10] VITALS: BP 145/95; PULSE 119; RESP 18; TEMP 36.6; O2SAT 97
[2023-04-21 07:35] LABS: MANUAL DIFF FLAG NO
[2023-04-21 07:39] LABS: Basophils Percent Auto 0.6 % (0-2); Eosinophils Percent Auto 0.4 % (0-4); Hematocrit 35.5 % (42.0-52.0); Hemoglobin 11.9 g/dl (14.0-18.0); Imm Gran Abs Auto 0.02 X10*3/uL (0.00-0.03); Imm Gran Pct Auto 0.4 % (0.0-0.4); Lymphocytes Absolute Auto 0.9 X10*3/uL (1.2-4.9); Lymphocytes Percent Auto 17.5 % (20-40); Mean Corpuscular HGB Conc 33.5 g/dl (31.0-36.0); Mean Corpuscular Hemoglobin 36.3 pg (27.0-33.0); Mean Corpuscular Volume 108.2 fL (80.0-98.0); Mean Platelet Volume 10.5 fL (9.4-12.4); Monocytes Absolute Auto 0.8 X10*3/uL (0.1-1.2); Monocytes Percent Auto 15.1 % (2-11); Neutrophils Absolute Auto 3.5 x10*3/uL (2.0-8.3); Platelet Count 131 X10*3/uL (160-400); Red Blood Count 3.28 X10*6/uL (4.60-5.80); Red Cell Distribution Width 15.9 % (11.0-16.0); White Blood Count 5.4 X10*3/uL (4.8-10.8)
[2023-04-21 07:51] LABS: Anion Gap 16 (12-20); Blood Urea Nitrogen 15 mg/dL (9-16); Carbon Dioxide 22 mmol/L (22-29); Chloride 103 mmol/L (96-108); Creatinine Clr Calc Pharmacy 98.4; Estimated Glomerular Filt Rate > 60; Glucose Random 176 mg/dL (60-115); Potassium 3.6 mmol/L (3.3-5.1); Sodium 137 mmol/L (135-145)
[2023-04-21 08:23] LABS: Magnesium 1.5 mg/dL (1.6-2.6)
[2023-04-21] MEDS: Folic Acid 1 MG TABLET PO (08:42)
[2023-04-21] MEDS: Furosemide 40 MG TABLET 80 MG PO (08:42)
[2023-04-21] MEDS: Spironolactone 25 MG TABLET PO (08:43)
[2023-04-21] MEDS: Empagliflozin 10 MG TABLET PO (08:43)
[2023-04-21] MEDS: Amiodarone HCL 200 MG TABLET PO (08:43)
[2023-04-21] MEDS: Digoxin 0.125 MG TABLET 0.25 MG PO (08:43)
[2023-04-21] MEDS: Potassium Chloride Packet 20 MEQ PACKET PO (08:43)
[2023-04-21] MEDS: Metoprolol Succinate ER 50 MG TAB.ER.24H PO (08:43)
[2023-04-21] MEDS: Magnesium Oxide 400 MG TABLET PO (08:43)
[2023-04-21] MEDS: Thiamine HCL 100 MG TABLET PO (08:43)
[2023-04-21] MEDS: Apixaban 5 MG TABLET PO ×2 (08:43→20:41)
[2023-04-21] MEDS: Losartan Potassium 25 MG TABLET PO ×2 (08:49→08:52)
[2023-04-21] MEDS: Magnesium Sulfate/H2O 2 GM/50 ML PIGGYBACK IV (08:52)
--- NOTE | 2023-04-21 09:11 | MHC.CARE ---
Court Clinician, Giuliana Gzt [phone] would like to coordinate with CM regarding patient discharge/Section 35.
--- NOTE | 2023-04-21 09:29 | PM.CNCAR ---
History of Present Illness History of Present Illness Date of Service: 04/21/23 Chief complaint: AFIB RVR, ETOH intoxication Narrative: This is a cardiology consultation regarding atrial fibrillation rapid ventricular rate. Patient is well known to us and he has been seen numerous times in the hospital. He has lot of alcohol issues and used to be a heavy regular drinker. More recently, patient denies regular drinking but I am not entirely clear that is true or not. Patient states that his mother few days ago and then he started drinking again and alcohol levels are very high when he came in. This time apparently, he drank half a bottle of vodka and there was a question of suicidal ideation with a plan to jump off a 3rd story building. After the above, he has been admitted for further care. Concern his atrial fibrillation rapid rate. Patient himself denies any clear symptoms. He has got no insight whatsoever into the seriousness of the health issues. Review of Systems Review of Systems: Yes all other systems are reviewed and are negative Constitutional: Constitutional: Reports as per HPI and Reports no additional constitutional complaints Eyes: Eyes: Reports as per HPI and Denies no additional eye complaints ENT: Denies system reviewed and no additional complaints, except as documented and Reports as per HPI Cardiovascular: Cardiovascular: Reports as per HPI, Reports no additional cardiovascular complaints, Denies acrocyanosis, Denies cool extremities, Denies chest pain, Denies leg edema, Denies lightheadedness, Denies palpitations and Denies dyspnea Respiratory: Respiratory: Reports as per HPI, Denies no additional respiratory complaints and Denies dyspnea Gastrointestinal: Gastrointestinal: Reports as per HPI and Denies no additional gastrointestinal complaints Genitourinary: Genitourinary: Reports no additional male genitourinary complaints and Reports as per HPI Musculoskeletal: Musculoskeletal: Reports no additional musculoskeletal complaints and Reports as per HPI Integumentary/Breasts: Skin/Breast: Reports system reviewed and no additional complaints, except as docu Neurologic: Reports system reviewed and no additional complaints, except as documented and Reports as per HPI Psychiatric: Psychiatric: Reports no additional psychiatric complaints and Reports as per HPI Endocrine: Endocrine: Reports no additional endocrine complaints, Reports as per HPI and Denies palpitations Hematologic/Lymphatic: Hematologic/Lymphatic: Reports no additional hematologic/lymphatic complaints and Reports as per HPI Allergic/Immunologic: Allergic/Immunologic: Reports no additional allergic/immunologic complaints and Reports as per HPI [facility] Past Medical History Medical History (Updated 04/21/23 @ 09:33 by Justen Rojas MD) Cardiomyopathy Chronic HFrEF (heart failure with reduced ejection fraction) Atrial fibrillation with rapid ventricular response Alcohol dependence with withdrawal Alcoholic hepatitis HTN (hypertension) Family History Family History Father CAD (coronary artery disease) Mother Atrial fibrillation Surgical History Surgical History No pertinent past surgical history Social History Social History Household Members: None Housing: Apartment Do you presently have visiting nurse or other home services: No Unable to assess alcohol history related to: Unable to respond Alcohol intake: current Alcohol intake frequency: 3 or more drinks per day Alcohol type: hard liquor Patient Tobacco Use Status: Never used Tobacco Second Hand Smoke Exposure: No Advance Directives Date on File: 02/12/23 service: No Current occupational status: unemployed Meds Allergies Allergy/AdvReac Type Severity Reaction Status Date / Time No Known Allergies Allergy Verified 03/11/23 08:50 [No Known Allergies*] Active Medications: Current Medications Acetaminophen (Acetaminophen 325 Mg Tablet) 650 mg PO Q6H PRN PRN Reason: Pain, Mild (Pain Scale 1-3) Amiodarone HCl (Amiodarone Hcl 200 Mg Tablet) 200 mg PO DAILY [facility] Last Admin: 04/21/23 08:43 Dose: 200 mg Apixaban (Apixaban 5 Mg Tablet) 5 mg PO BID [facility] Last Admin: 04/21/23 08:43 Dose: 5 mg Digoxin (Digoxin 0.125 Mg Tablet) 0.25 mg PO DAILY [facility] Last Admin: 04/21/23 08:43 Dose: 0.25 mg Digoxin (Digoxin 0.25 Mg Tablet) 0.25 mg PO ONCE ONE Stop: 04/21/23 09:01 Docusate Sodium (Docusate Sodium 100 Mg Capsule) 100 mg PO DAILY PRN PRN Reason: Constipation Empagliflozin (Empagliflozin 10 Mg Tablet) 10 mg PO DAILY [facility] Last Admin: 04/21/23 08:43 Dose: 10 mg Folic Acid (Folic Acid 1 Mg Tablet) 1 mg PO DAILY [facility] Last Admin: 04/21/23 08:42 Dose: 1 mg Furosemide (Furosemide 40 Mg Tablet) 80 mg PO DAILY [facility]; Protocol Last Admin: 04/21/23 08:42 Dose: 80 mg Magnesium Sulfate (Magnesium Sulfate/H2o) 2 gm in 50 mls @ 50 mls/hr IV ONCE ONE Stop: 04/21/23 09:37 Last Admin: 04/21/23 08:52 Dose: 50 mls/hr Losartan Potassium (Losartan Potassium 25 Mg Tablet) 25 mg PO Q2D [facility]; Protocol Last Admin: 04/21/23 08:52 Dose: 25 mg Magnesium Oxide (Magnesium Oxide 400 Mg Tablet) 400 mg PO DAILY [facility] Last Admin: 04/21/23 08:43 Dose: 400 mg Metoprolol Tartrate (Metoprolol Tartrate 50 Mg Tablet) 50 mg PO Q6H [facility]; Protocol Ondansetron HCl (Ondansetron Hcl 4 Mg/2 Ml Vial) 4 mg IVPUSH Q8H PRN PRN Reason: Nausea and Vomiting Pharmacy Consult (Consult Rx Etoh Phenob Im/Po) 1 each MISCELLANE ONCE PRN; Protocol PRN Reason: Consult order Sodium Chloride (0.9 % Sodium Chloride Flush 3 Ml Syringe) 3 ml IVFLUSH QSHIFT [facility] Last Admin: 04/21/23 08:57 Dose: 3 ml Spironolactone (Spironolactone 25 Mg Tablet) 25 mg PO DAILY [facility]; Protocol Last Admin: 04/21/23 08:43 Dose: 25 mg Thiamine HCl (Thiamine Hcl 100 Mg Tablet) 100 mg PO DAILY [facility] Last Admin: 04/21/23 08:43 Dose: 100 mg Home Medications Medication Instructions Recorded Confirmed Last Taken Type thiamine mononitrate (vit B1) 100 100 mg PO DAILY 09/16/22 04/20/23 04/18/23 History mg tablet (Vitamin B-1 (mononitrate)) Physical Exam Vital Signs: Vital Signs: Last Vital Signs Temp 98 F 04/21/23 07:10 Pulse 119 H 04/21/23 07:10 Resp 18 04/21/23 07:10 BP 145/95 H 04/21/23 07:10 Pulse Ox 97 04/21/23 07:10 O2 Del Method Room Air 04/21/23 07:10 BMI result Body Mass Index 28.7 Const: General: comfortable and no acute distress Orientation/consciousness: patient oriented x3 HEENT: Other: Unremarkable Head: Yes normal to inspection Neck: Neck: Yes normal visual inspection Chest: Chest palpation & inspection: normal inspection of the chest Resp: Auscultation: clear to auscultation bilaterally Cardio: Palpation: normal PMI Heart sounds: S1 normal heart sound present, S2 normal heart sound present, no gallops, no murmurs and no rubs GI: Palpation (GI): Soft to palpation Back/Spine/Pelvis: Other: unremarkable Skin: General skin exam: no rashes or lesions noted Neuro: Other: Tremulous General: patient oriented x3 Extrem: General: Yes normal to inspection Psych: Mental Status: mental status grossly normal Objective Labs and Meds 04/21/23 07:08 04/21/23 07:08 Lab results: Laboratory Results - last 24 hr 04/20/23 04/20/23 04/21/23 13:39 17:14 07:08 WBC 5.7 5.4 RBC 3.79 L 3.28 L Hgb 13.7 L 11.9 L Hct 41.7 L 35.5 L MCV 110.0 H 108.2 H MCH 36.1 H 36.3 H MCHC 32.9 33.5 RDW 16.2 H 15.9 Plt Count 168 131 L MPV 9.8 10.5 Immature Gran % (Auto) 0.5 H 0.4 Neut % (Auto) 73.7 H 66.0 Lymph % (Auto) 16.0 L 17.5 L [place] % (Auto) 8.9 15.1 H Eos % (Auto) 0.0 0.4 Baso % (Auto) 0.9 0.6 Lymph # (Auto) 0.9 L 0.9 L [place] # (Auto) 0.5 0.8 Eos # (Auto) 0.0 0.0 Baso # (Auto) 0.1 0.0 Abs Immat Gran (auto) 0.03 0.02 Absolute Neuts (auto) 4.2 3.5 Absolute Nucleated RBC 0.000 0.000 Nucleated RBC % (auto) 0.0 0.0 Sodium 142 137 Potassium 3.8 3.6 Chloride 107 103 Carbon Dioxide 19 L 22 Anion Gap 20 16 BUN 18 H 15 Creatinine 1.21 0.96 Estim Creat Clear Calc 78.1 98.4 Estimated GFR > 60 > 60 Random Glucose 122 H 176 H Calcium 8.9 D 9.0 Magnesium 1.9 1.5 L Total Bilirubin 1.2 H Direct Bilirubin 0.7 H AST 36 ALT 19 Alkaline Phosphatase 122 H Troponin I High Sens 21.2 D 25.9 B-Natriuretic Peptide 1090 H Total Protein 7.4 Albumin 4.0 Lipase 11 Ethyl Alcohol 383 H* ECG Interpretation: EKG with atrial fibrillation rate of 147/Min; old septal infarct; nonspecific ST-T changes. On telemetry, atrial fibrillation with rapid rate in the 140s. Imaging Radiologist's impression: Impressions Head CT 04/20/23 14:24 IMPRESSION: Mild cerebral volume loss. No acute intracranial abnormality. There appears to be mild right frontal/forehead soft tissue swelling. Chest X-Ray 04/20/23 15:42 IMPRESSION: Stable enlarged cardiac silhouette. No active cardiopulmonary disease. Assessment and Plan (1) Atrial fibrillation with rapid ventricular response: Status: Acute (2) Cardiomyopathy: Status: Acute (3) Alcohol intoxication: Status: Acute (4) Suicidal ideations: Status: Acute (5) Noncompliance with medications: Status: Acute (6) Alcohol abuse: Status: Acute Plan Alcohol levels were very high. 383 upon arrival. Multiple levels in the system on the higher side. Unknown medical compliance. Atrial fibrillation rapid rate in the setting of alcohol intoxication, possibly some components of withdrawal starting, noncompliance, lack of insight. Overall, high risk of decompensation and . This has been reinforced numerous times but patient has no insight whatsoever and does not seem to understand this. Home medications listed include amiodarone, digoxin, metoprolol, also rate control purposes rather than rhythm control. However, unknown that he actually takes these or not. We can put him back on the same medications but increase the dose of the metoprolol and also give him some additional digoxin with the hope of slowing things down. We can also ensure that he is on alcohol detoxification protocol. Discussed with Dr. Bennett. Time Spent With Patient Time: Total time managing care of this patient today ____ minutes. Procedures Date of Service Date of Service: 04/21/23
[2023-04-21] MEDS: Digoxin 0.25 MG TABLET PO (10:21)
[2023-04-21] MEDS: PHENobarbitaL sodium 130 MG/ML IM ONCE 234 MG IM (10:21)
--- NOTE | 2023-04-21 11:03 | MHC.CM.PN ---
CM met with patient at bedside. Pt is from home alone, independent with ADL's/ambulation. Admitted with afib RVR/ETOH withdrawal. Similar admission 03/14/23, dc'd home with [facility] however did not start services as pt returned to work/not homebound. Active Section 12 for SI with plan, CARE team aware. Per Jade Morin clinician Giuliana Gtz there is also an active Section 35, filed by sister, expires close of business 04/26/23. Giuliana is requesting notification of dc, . Patient would like to meet with service worker, aware. Patient reports recent lay off from job, + [employer], resource guide provided. +HCP: Sister Lucy [phone] DP: pending, pts goal is to return home, open to services and prefers [facility], family can transport.
[2023-04-21 11:20] VITALS: BP 160/80; PULSE 122; RESP 18; TEMP 36.3; O2SAT 96
[2023-04-21] MEDS: Metoprolol Tartrate 50 MG TABLET PO ×2 (13:23→20:41)
[2023-04-21] MEDS: PHENobarbitaL sodium 130 MG/ML VIAL IM Q3Hx2 175 MG IM ×2 (13:23→17:27)
[2023-04-21 15:13] VITALS: BP 119/80; PULSE 106; RESP 20; TEMP 36.7; O2SAT 97
--- NOTE | 2023-04-21 16:29 | HO.PM.IMPN ---
Subjective Subjective Date of Service: 04/21/23 Interval History: afib ,possible alcohol withdrwal Review of Systems Seems anxious, tachycardic in the morning in 130-140 range, denies any chest pain or shortness of breath. Physical Exam Vital Signs: Vital Signs: Last Vital Signs Temp 98.0 F 04/21/23 15:13 Pulse 106 H 04/21/23 15:13 Resp 20 04/21/23 15:13 BP 119/80 04/21/23 15:13 Pulse Ox 97 04/21/23 15:13 O2 Del Method Room Air 04/21/23 15:13 BMI result Body Mass Index 28.7 Appearance: Alert.? Oriented X3.? anxious and tramulous.? cvs: irregular rythem, [id number] . res: clear to auscultation ,no rhonchii or wheezing abd: no rebound or guarding ,nt, bs present. ext pulses present , no cyanosis . neuro: axo3 , nonfocal. Objective Data Active Medications Acetaminophen (Acetaminophen 325 Mg Tablet) 650 mg PO Q6H PRN PRN Reason: Pain, Mild (Pain Scale 1-3) Amiodarone HCl (Amiodarone Hcl 200 Mg Tablet) 200 mg PO DAILY [facility] Last Admin: 04/21/23 08:43 Dose: 200 mg Documented By: FAWN Apixaban (Apixaban 5 Mg Tablet) 5 mg PO BID [facility] Last Admin: 04/21/23 08:43 Dose: 5 mg Documented By: FAWN Digoxin (Digoxin 0.125 Mg Tablet) 0.25 mg PO DAILY [facility] Last Admin: 04/21/23 08:43 Dose: 0.25 mg Documented By: FAWN Docusate Sodium (Docusate Sodium 100 Mg Capsule) 100 mg PO DAILY PRN PRN Reason: Constipation Empagliflozin (Empagliflozin 10 Mg Tablet) 10 mg PO DAILY [facility] Last Admin: 04/21/23 08:43 Dose: 10 mg Documented By: FAWN Folic Acid (Folic Acid 1 Mg Tablet) 1 mg PO DAILY [facility] Last Admin: 04/21/23 08:42 Dose: 1 mg Documented By: FAWN Furosemide (Furosemide 40 Mg Tablet) 80 mg PO DAILY [facility]; Protocol Last Admin: 04/21/23 08:42 Dose: 80 mg Documented By: FAWN Losartan Potassium (Losartan Potassium 25 Mg Tablet) 25 mg PO Q2D [facility]; Protocol Last Admin: 04/21/23 08:52 Dose: 25 mg Documented By: FAWN Magnesium Oxide (Magnesium Oxide 400 Mg Tablet) 400 mg PO DAILY [facility] Last Admin: 04/21/23 08:43 Dose: 400 mg Documented By: FAWN Metoprolol Tartrate (Metoprolol Tartrate 50 Mg Tablet) 50 mg PO Q6H [facility]; Protocol Last Admin: 04/21/23 13:23 Dose: 50 mg Documented By: FAWN Ondansetron HCl (Ondansetron Hcl 4 Mg/2 Ml Vial) 4 mg IVPUSH Q8H PRN PRN Reason: Nausea and Vomiting Pharmacy Consult (Consult Rx Etoh Phenob Im/Po) 1 each MISCELLANE ONCE PRN; Protocol PRN Reason: Consult order Phenobarbital (Phenobarbital 15 Mg Tablet) 45 mg PO BID [facility]; Protocol Stop: 04/23/23 09:01 Phenobarbital (Phenobarbital 30 Mg Tablet) 30 mg PO BID [facility]; Protocol Stop: 04/25/23 09:01 Phenobarbital (Phenobarbital 30 Mg Tablet) 30 mg PO DAILY [facility]; Protocol Stop: 04/27/23 09:01 Sodium Chloride (0.9 % Sodium Chloride Flush 3 Ml Syringe) 3 ml IVFLUSH QSHIFT [facility] Last Admin: 04/21/23 08:57 Dose: 3 ml Documented By: FAWN Spironolactone (Spironolactone 25 Mg Tablet) 25 mg PO DAILY [facility]; Protocol Last Admin: 04/21/23 08:43 Dose: 25 mg Documented By: FAWN Thiamine HCl (Thiamine Hcl 100 Mg Tablet) 100 mg PO DAILY [facility] Last Admin: 04/21/23 08:43 Dose: 100 mg Documented By: FAWN Labs 04/21/23 07:08 04/21/23 07:08 Labs: Laboratory Results - last 24 hr 04/21/23 07:08 MCV 108.2 H MCH 36.3 H MCHC 33.5 RDW 15.9 Plt Count 131 L MPV 10.5 Immature Gran % (Auto) 0.4 Neut % (Auto) 66.0 Lymph % (Auto) 17.5 L [place] % (Auto) 15.1 H Eos % (Auto) 0.4 Baso % (Auto) 0.6 Lymph # (Auto) 0.9 L [place] # (Auto) 0.8 Eos # (Auto) 0.0 Baso # (Auto) 0.0 Abs Immat Gran (auto) 0.02 Absolute Neuts (auto) 3.5 Absolute Nucleated RBC 0.000 Nucleated RBC % (auto) 0.0 Anion Gap 16 Estim Creat Clear Calc 98.4 Estimated GFR > 60 Random Glucose 176 H Calcium 9.0 Magnesium 1.5 L Assessment and Plan (1) Atrial fibrillation with rapid ventricular response: Status: Acute Assessment and Plan: 57-year-old male with past medical history of AFib, PE on Eliquis, cardiomyopathy EF 10-15% due to ETOH abuse, CHF, HTN admitted for Atrial Fibrillation with RVR and acute alcohol intoxication patient with SI. atrial fibrillation with RVR-tachycardia likely complicated by acute intoxication received 0.25 mg IV digoxin, 200 mg amiodarone in the ED digoxin 0.25 mg x1 , added metoprolol 50 mg q6hr,Eliquis hr improving 110's cardiology consult-noted:continue digoxin,amiodarone ,metoprolol. Acute alcohol intoxication at risk for severe withdrawal monitor on CIWA continue phenobarbital. IV thiamine and folic acid daily, 400 mg magnesium depression with SI -patient brought in after reporting SI with plan to jump off 3rd Story building -sitter consult -will need clearance from care team prior to discharge history of pulmonary embolism -continue Eliquis HFrEF/cardiomyopathy -no acute exacerbation -continue oral diuretics, beta blockers, Jardiance hypertension-blood pressure reasonably controlled -continue furosemide, metoprolol DVT prophylaxis-Eliquis Full code ongoing inpatient :management of atrial fibrillation with RVR-need tele monitoring and medication adjustment as above, and acute alcohol withdrawal - on phenobarbital protocol and CIWA monitoring. Time Spent With Patient Time: Total time managing care of this patient today ____ minutes. Quality Stroke Does the patient have a stroke diagnosis?: No VTE Prior VTE?: Yes VTE Risk Level:: Medical - moderate - high VTE Device Contraindication: Treatment Not Indicated VTE Drug Contraindication: N/A - Med Ordered
[2023-04-21 19:15] VITALS: BP 141/88; PULSE 92; RESP 17; TEMP 36.7; O2SAT 96
[2023-04-21] MEDS: PHENobarbitaL 15 MG TABLET 45 MG PO (20:41)
[2023-04-22] VITALS: BP 114/86; PULSE 68; RESP 18; TEMP 36.9; O2SAT 98
[2023-04-22] MEDS: Metoprolol Tartrate 50 MG TABLET PO ×3 (03:46→16:34)
[2023-04-22 04:00] VITALS: BP 141/83; PULSE 109; RESP 18; TEMP 37.1; O2SAT 94
[2023-04-22 07:32] VITALS: BP 122/68; PULSE 78; RESP 18; TEMP 36.7; O2SAT 97
[2023-04-22 08:08] LABS: Anion Gap 15 (12-20); Blood Urea Nitrogen 12 mg/dL (9-16); Calcium 8.7 mg/dL (8.4-10.2); Carbon Dioxide 26 mmol/L (22-29); Chloride 98 mmol/L (96-108); Creatinine Clr Calc Pharmacy 101.6; Estimated Glomerular Filt Rate > 60; Glucose Random 112 mg/dL (60-115); Potassium 2.9 mmol/L (3.3-5.1); Sodium 136 mmol/L (135-145)
[2023-04-22 08:09] LABS: Digoxin 0.6 ng/mL (0.8-2.0)
[2023-04-22] MEDS: Apixaban 5 MG TABLET PO (10:29)
[2023-04-22] MEDS: 0.9 % Sodium Chloride Flush 3 ML SYRINGE IVFLUSH ×2 (10:29)
[2023-04-22] MEDS: Empagliflozin 10 MG TABLET PO (10:29)
[2023-04-22] MEDS: PHENobarbitaL 15 MG TABLET 45 MG PO (10:30)
[2023-04-22] MEDS: Digoxin 0.125 MG TABLET 0.25 MG PO (10:30)
[2023-04-22] MEDS: Amiodarone HCL 200 MG TABLET PO (10:31)
[2023-04-22] MEDS: Furosemide 40 MG TABLET 80 MG PO (10:31)
[2023-04-22] MEDS: Magnesium Oxide 400 MG TABLET PO (10:32)
[2023-04-22] MEDS: Folic Acid 1 MG TABLET PO (10:32)
[2023-04-22] MEDS: Spironolactone 25 MG TABLET PO (10:33)
[2023-04-22] MEDS: Thiamine HCL 100 MG TABLET PO (10:36)
[2023-04-22 11:01] VITALS: BP 124/62; PULSE 68; RESP 18; TEMP 36.4; O2SAT 96
[2023-04-22] MEDS: Potassium Chloride Packet 20 MEQ PACKET 40 MEQ PO (12:47)
--- NOTE | 2023-04-22 13:19 | MHC.RECOVRN ---
Met with pt in 467 after consult placed to Addiction Medicine for alcohol use. Pt had presented to the ED on a Sect 12 after making SI statements. Pts mother last week, pt has been drinking, and felt unsafe. Pt subsequently admitted to the hospital for alcohol intoxication/management of withdrawal, SI, and atrial fibrillation with rapid ventricular response. Pt has been cleared by CARE Team. Pt sitting in chair, awake, alert, easily engages in conversation. Pt familiar with t/w from previous consults. Pt consistently minimizes effects alcohol has had on his life, states I don't see a problem with having a drink or two on a Wednesday night. Pt reports 1/2 a skinny bottle of vodka per week. Pt reports he mixes vodka with juice or lemonade. Pt is not interested in most recovery supports, has trialed [facility] in the past and is not interested in restarting. Pt is however interested in speaking with a ice hockey coach, t/w will coordinate high school coach to meet with patient this evening. Pt denies other questions or concerns at this time. Discussed with Andressa Jones APRN.
--- NOTE | 2023-04-22 13:42 | P.CDIM_ITS ---
PROVIDER RESPONSE TEXT: To clarify, the appropriate diagnosis supported by the clinical indicators: Cardiomyopathy: unclear etiology QUERY TEXT: PHYSICIAN'S DOCUMENTATION REQUEST Date of Query: 04/22/2023 08:59 AM EDT Patient Name: Abner Galvan Admit Date: 04/20/2023 Dear Keon Bennett, A review of the medical record indicates additional documentation may be needed. Please review below and update the documentation accordingly. Clinical Indicators: Cardiology consult: Alcohol levels were very high 383 upon arrival, alcohol intoxication, overall, hi gh risk of decompensation and . He has alot of alcohol issue, he has no insight whatsoever into the seriousness of the health issues. ED: cardiomyopathy EF 10-15 % due to ETOH abuse. Increase dose of the metoprolol and additional digoxin, we can also ensure that is on alcohol detoxif ication protocol. Based on the above, could you clarify the appropriate diagnosis, if significant, that supports the ab ove abnormalities and additional evaluation, monitoring, and/or treatment rendered: Cardiomyopathy alcoholic, non-ischemic, ischemic, hypertensive or other Other (explain)Clinically unable to determine (explain)Thank you, Roz Barriga, CCS, CDIS Use of terms such as suspected, likely, concern for, or probable (associated with a specific diagnosi s that is being evaluated, monitored, or treated as if it exists) are acceptable and can be coded in the inpatient se tting, when documented at the time of discharge. Please use your independent medical judgment in providing your response. THIS QUERY IS PART OF THE PERMANENT MEDICAL RECORD
[2023-04-22 15:12] VITALS: BP 104/60; PULSE 98; RESP 18; TEMP 36.3; O2SAT 99
--- NOTE | 2023-04-22 15:56 | HO.PM.IMPN ---
Subjective Subjective Date of Service: 04/22/23 Interval History: afib with rvr, alcohol withdrawal depression with si? Review of Systems hr seems improving anxiety and tremers improving Physical Exam Vital Signs: Vital Signs: Last Vital Signs Temp 97.3 F 04/22/23 15:12 Pulse 98 04/22/23 15:12 Resp 18 04/22/23 15:12 BP 104/60 04/22/23 15:12 Pulse Ox 99 04/22/23 15:12 O2 Del Method Room Air 04/22/23 15:12 BMI result Body Mass Index 28.7 Appearance: Alert.? Oriented X3.? anxious and tramulous.? cvs: irregular rythem, [id number] . res: clear to auscultation ,no rhonchii or wheezing abd: no rebound or guarding ,nt, bs present. ext pulses present , no cyanosis . neuro: axo3 , nonfocal. Objective Data Active Medications Acetaminophen (Acetaminophen 325 Mg Tablet) 650 mg PO Q6H PRN PRN Reason: Pain, Mild (Pain Scale 1-3) Amiodarone HCl (Amiodarone Hcl 200 Mg Tablet) 200 mg PO DAILY [facility] Last Admin: 04/22/23 10:31 Dose: 200 mg Documented By: LD Apixaban (Apixaban 5 Mg Tablet) 5 mg PO BID [facility] Last Admin: 04/22/23 10:29 Dose: 5 mg Documented By: LD Digoxin (Digoxin 0.125 Mg Tablet) 0.25 mg PO DAILY [facility] Last Admin: 04/22/23 10:30 Dose: 0.25 mg Documented By: LD Docusate Sodium (Docusate Sodium 100 Mg Capsule) 100 mg PO DAILY PRN PRN Reason: Constipation Empagliflozin (Empagliflozin 10 Mg Tablet) 10 mg PO DAILY [facility] Last Admin: 04/22/23 10:29 Dose: 10 mg Documented By: LD Folic Acid (Folic Acid 1 Mg Tablet) 1 mg PO DAILY [facility] Last Admin: 04/22/23 10:32 Dose: 1 mg Documented By: LD Furosemide (Furosemide 40 Mg Tablet) 80 mg PO DAILY [facility]; Protocol Last Admin: 04/22/23 10:31 Dose: 80 mg Documented By: LD Losartan Potassium (Losartan Potassium 25 Mg Tablet) 25 mg PO Q2D [facility]; Protocol Last Admin: 04/21/23 08:52 Dose: 25 mg Documented By: FAWN Magnesium Oxide (Magnesium Oxide 400 Mg Tablet) 400 mg PO DAILY [facility] Last Admin: 04/22/23 10:32 Dose: 400 mg Documented By: LD Metoprolol Tartrate (Metoprolol Tartrate 50 Mg Tablet) 50 mg PO Q6H [facility]; Protocol Last Admin: 04/22/23 10:32 Dose: 50 mg Documented By: LD Ondansetron HCl (Ondansetron Hcl 4 Mg/2 Ml Vial) 4 mg IVPUSH Q8H PRN PRN Reason: Nausea and Vomiting Pharmacy Consult (Consult Rx Etoh Phenob Im/Po) 1 each MISCELLANE ONCE PRN; Protocol PRN Reason: Consult order Phenobarbital (Phenobarbital 15 Mg Tablet) 45 mg PO BID [facility]; Protocol Stop: 04/23/23 09:01 Last Admin: 04/22/23 10:30 Dose: 45 mg Documented By: LD Phenobarbital (Phenobarbital 30 Mg Tablet) 30 mg PO BID [facility]; Protocol Stop: 04/25/23 09:01 Phenobarbital (Phenobarbital 30 Mg Tablet) 30 mg PO DAILY [facility]; Protocol Stop: 04/27/23 09:01 Sodium Chloride (0.9 % Sodium Chloride Flush 3 Ml Syringe) 3 ml [facility] Last Admin: 04/22/23 10:29 Dose: 3 ml Documented By: LD Spironolactone (Spironolactone 25 Mg Tablet) 25 mg PO DAILY [facility]; Protocol Last Admin: 04/22/23 10:33 Dose: 25 mg Documented By: LD Thiamine HCl (Thiamine Hcl 100 Mg Tablet) 100 mg PO DAILY [facility] Last Admin: 04/22/23 10:36 Dose: 100 mg Documented By: LD Labs 04/21/23 07:08 04/22/23 07:06 Labs: Laboratory Results - last 24 hr 04/22/23 07:06 Hold Purple Top SEE NOTE Anion Gap 15 Estim Creat Clear Calc 101.6 Estimated GFR > 60 Random Glucose 112 Calcium 8.7 Digoxin 0.6 L Assessment and Plan (1) Cardiomyopathy: Status: Acute (2) Atrial fibrillation with rapid ventricular response: Status: Acute Plan 57-year-old male with past medical history of AFib, PE on Eliquis, cardiomyopathy EF 10-15% due to ETOH abuse, CHF, HTN admitted for Atrial Fibrillation with RVR and acute alcohol intoxication patient with SI. atrial fibrillation with RVR-tachycardia likely complicated by acute intoxication hr seems to be improved cardiology consult-noted:switch to home meds -digoxin,amiodarone ,metoprolol. Acute alcohol intoxication at risk for severe withdrawal monitor on CIWA continue phenobarbital. IV thiamine and folic acid daily, magnesium patient is sectioned 35 by his depression with SI-patient brought in after reporting SI with plan to jump off [facility] [facility] care team -cleared to discharge history of pulmonary embolism-continue Eliquis HFrEF/cardiomyopathy-no acute exacerbation continue oral diuretics, beta blockers, Jardiance hypertension-blood pressure reasonably controlled-continue furosemide, metoprolol DVT prophylaxis-Eliquis Full code ongoing inpatient :management of atrial fibrillation with RVR-need tele monitoring and medication adjustment as above, and acute alcohol withdrawal - on phenobarbital protocol and CIWA monitoring Time Spent With Patient Time: Total time managing care of this patient today ____ minutes. Quality Stroke Does the patient have a stroke diagnosis?: No VTE Prior VTE?: Yes VTE Risk Level:: Medical - moderate - high VTE Device Contraindication: Treatment Not Indicated VTE Drug Contraindication: N/A - Med Ordered
--- NOTE | 2023-04-22 16:15 | P.DS_ITS ---
DS: Providers Provider Date of Service: 04/22/23 Date of admission: 04/20/23 17:19 Primary care physician: Kaye Bennett MD Consults: 04/20/23 12:30 Consult to Care Team Stat Comment: Reason for consultation: +SI w/plan to jump off building. depressed, etoh 04/20/23 16:46 Consult to Cardiology Routine Consulting Provider: [facility] Cardiovascular Services Reason for consultation: afib rvr 04/20/23 17:06 Consult for Sitter Routine Reason for consultation: SI 04/22/23 11:33 Addiction Medicine Routine Consulting Provider: Addiction Covering Reason for consultation: Alcohol abuse Has provider been notified: No Consult to Care Team Routine Comment: Reason for consultation: Depression /sI , sectioned 12,35 Attending physician on discharge: Keon Bennett Discharging clinician: Keon Bennett DS: Diagnosis Discharge Diagnosis (1) Cardiomyopathy: Status: Acute (2) Atrial fibrillation with rapid ventricular response: Status: Acute DS: Summary Hospital Course Hospital Course: 57-year-old male with past medical history of AFib, PE on Eliquis, cardiomyopathy EF 10-15% due to ETOH abuse, CHF, HTN, presenting to the ED via EMS on Section 12 from [place] for ETOH intoxication and SI with plan to jump off a 3rd story building. Patient admits his mother on , has been having increasing depression since. Denies SI at present, however admits he reported SI to PD. Admits to drinking half a bottle of vodka today, last drink around 12:00pm, denies hx withdrawal seizures. He currently denies any lightheadedness, palpitations, shortness of breath, or chest pain. No nausea, vomiting, abdominal pain, tremors, confusion, AH, VH. Denies any falls. On arrival, patient tachycardic to 152, improved to 118 but still ranging intermittently to 140s with 0.25 mg IV digoxin, 2.5 mg IV Lopressor x3, 200mg amiodarone. Blood pressure stable. Hematology studies consistent with baseline, unremarkable. Renal function and electrolyte levels normal except for CO2 19. Troponin within normal limits, BNP 1090, improved. Ethyl alcohol level 383. Last dig level 0.3 03/2023. Head CT negative for any acute intracranial abnormality but does show mild cerebral volume loss as well as some mild soft tissue swelling of the right frontal/forehead. CXR shows stable enlarged cardiac silhouette but no acute cardiopulmonary abnormality. EKG shows atrial fibrillation with RVR, rate 147 with out any acute changes in ST/T waves. Hospital course: Patient was admitted because of alcohol withdrawal, afib with RVR: Patient was started on iv beta-blockers and digoxin initially and also given phenobarb for alcohol withdrawal: His tachycardia seems to be improved. Subsequently with above supportive care patient heart rate seems to be improved significantly and also alcohol withdrawal seems to be improved-patient seen by Cardiology and discussed with him in detail-on advise strongly for medication compliance as well as abstain from alcohol. Patient also initially said suicidal ideation was seen by care team and cleared upon discharge. In addition [facility] clinician Giuliana Gtz there is also an active Section 35, filed by sister, dependency case manager will update about it. plan: Strongly advised to abstain from alcohol and compliance with home medications. Follow-up with Cardiology outpatient. Time Spent with Patient Time attestation: Total time managing care of this patient today ____ minutes. Discharge coordination time: Greater than 30 minutes Quality: Safe Use of Opioids Does Pt have an Active Cancer Diagnosis on the Problem List?: No Quality: Stroke Does the patient have a stroke diagnosis?: No Physical Exam Vital Signs: Vital Signs: Last Vital Signs Temp 97.3 F 04/22/23 15:12 Pulse 98 04/22/23 15:12 Resp 18 04/22/23 15:12 BP 104/60 04/22/23 15:12 Pulse Ox 99 04/22/23 15:12 O2 Del Method Room Air 04/22/23 15:12 BMI result Body Mass Index 28.7 Appearance: Alert.? Oriented X3.? not in distress.? cvs:irregular rythem, [id number] . res: clear to auscultation ,no rhonchii or wheezing abd: no rebound or guarding ,nt, bs present. ext pulses present , no cyanosis . neuro: axo3 , nonfocal. DS: Data Data Completed and Pending Completed studies during hospitalization [Text1]: Procedures Assistance with Respiratory Ventilation, Less than 24 Consecutive Hours, Continuous Positive Airway Pressure (12/22/22) Detoxification Services for Substance Abuse Treatment (02/08/23) Insertion of Endotracheal Airway into Trachea, Via Natural or Artificial Opening (11/11/21) Respiratory Ventilation, 24-96 Consecutive Hours (11/11/21) Advent of Cardiac Rhythm, Single (11/11/21) Labs on day of discharge: Laboratory Results - last 24 hr 04/22/23 07:06 Hold Purple Top SEE NOTE Sodium 136 Potassium 2.9 L Chloride 98 Carbon Dioxide 26 Anion Gap 15 BUN 12 Creatinine 0.93 Estim Creat Clear Calc 101.6 Estimated GFR > 60 Random Glucose 112 Calcium 8.7 Digoxin 0.6 L Imaging Chest x-ray: Radiologist's impression: ITS Impressions Head CT 04/20/23 14:24 IMPRESSION: Mild cerebral volume loss. No acute intracranial abnormality. There appears to be mild right frontal/forehead soft tissue swelling. Chest X-Ray 04/20/23 15:42 IMPRESSION: Stable enlarged cardiac silhouette. No active cardiopulmonary disease. Discharge Plan Discharge Anticipated Discharge Date/Time: 04/22/23 16:04 Patient Disposition: Home, Self-Care Discharge Diagnosis: Alcohol withdrawal, AFib with RVR Referrals: Kaye Bennett MD [Primary Care Provider] - 1 Week Discharge Medications: Continued amiodarone 200 mg tablet 200 mg PO DAILY 90 Days Qty: 90 1RF Eliquis 5 mg tablet 5 mg PO BID Qty: 180 1RF Jardiance 10 mg tablet 10 mg PO DAILY Qty: 30 1RF furosemide 40 mg tablet 80 mg PO DAILY 30 Days Qty: 60 1RF Protocol: Hold for SBP< HOLD for SBP < : 90 Rx Instructions: OVERDUE FOR APPT. PLEASE CALL [phone] TO SCHEDULE FOLLOW UP SO WE CAN CONTINUE REFILLING YOUR MEDICATIONS. losartan 25 mg tablet 25 mg PO Q OTHER DAY 30 Days Qty: 15 1RF Hold Instructions: Resume on 03/02/23. hold until seen by pcp Rx Instructions: OVERDUE FOR APPT. PLEASE CALL [phone] TO SCHEDULE FOLLOW UP SO WE CAN CONTINUE REFILLING YOUR MEDICATIONS. folic acid 1 mg tablet 1 mg PO DAILY Qty: 90 1RF Rx Instructions: OVERDUE FOR APPT. PLEASE CALL [phone] TO SCHEDULE FOLLOW UP SO WE CAN CONTINUE REFILLING YOUR MEDICATIONS. spironolactone 25 mg tablet 25 mg PO DAILY Qty: 90 0RF Rx Instructions: OVERDUE FOR APPT. PLEASE CALL [phone] TO SCHEDULE FOLLOW UP SO WE CAN CONTINUE REFILLING YOUR MEDICATIONS. metoprolol succinate 50 mg Tablet Extended Release 24 Hr 50 mg PO DAILY Qty: 90 0RF Protocol: Hold for SBP/HR < HOLD for SBP < : 90 HOLD for HR < : 60 magnesium oxide 400 mg (241.3 mg magnesium) Tablet 400 mg PO DAILY Qty: 90 0RF digoxin 125 mcg (0.125 mg) Tablet 0.25 mg PO DAILY Qty: 60 0RF thiamine mononitrate (vit B1) [Vitamin B-1 (mononitrate)] 100 mg tablet 100 mg PO DAILY Discharge Orders: Discharge Order (Routine); Ordered 04/22/23 Ordered By: Keon Bennett Diet: Advance to usual diet Activity on Discharge: As tolerated Stand Alone Forms: Patient Portal Discharge page Care Plan Goals: Patient was admitted because of alcohol withdrawal, afib with RVR: Patient was started on iv beta-blockers and digoxin initially and also given phenobarb for alcohol withdrawal: His tachycardia seems to be improved. Subsequently with above supportive care patient heart rate seems to be improved significantly and also alcohol withdrawal seems to be improved-patient seen by Cardiology and discussed with him in detail-on advise strongly for medication compliance as well as abstain from alcohol. Patient also initially said suicidal ideation was seen by care team and cleared upon discharge. In addition [facility] clinician Giuliana Gtz there is also an active Section 35, filed by sister, dependency case manager will update about dsicharge. Health Concerns: as above . Plan of Treatment: as above. Assessment: as above.
--- NOTE | 2023-04-22 16:22 | MHC.CM.PN ---
Per MD patient is medically cleared for dc, also cleared by CARE team. Plan is home, self care. Lyft scheduled for 4:50pm [employer] material [employer]. RN aware. [address] Clinician aware of dc and will manage section 35.
== END 2023-04-22 16:57 | disposition home or self-care (01) | DRG 201 ==
LOC: HO.ED 17:04 → HO.EDOVER 17:20 → HO.IMC 19:17
PROVIDERS: Physician Assistant; Admitting Provider Physician Assistant; Emergency Provider Emergency Medicine Emergency Medical Services; PCP Internal Medicine; Visit Provider Internal Medicine
DX: I48.91 Unspecified atrial fibrillation (principal); I42.9 Cardiomyopathy, unspecified; R45.851 Suicidal ideations; I50.22 Chronic systolic (congestive) heart failure; I11.0 Hypertensive heart disease with heart failure; E83.42 Hypomagnesemia; F32.A Depression, unspecified; F10.129 Alcohol abuse with intoxication, unspecified; F10.139 Alcohol abuse with withdrawal, unspecified; Y90.8 Blood alcohol level of 240 mg/100 ml or more; Z91.148 Patient's other noncompliance with medication regimen for other reason; Z86.711 Personal history of pulmonary embolism; Z79.01 Long term (current) use of anticoagulants; Z79.899 Other long term (current) drug therapy
CPT/HCPCS: 36415; 70450; 71045; 80048; 80076; 80162; 80307; 83690; 83735; 83880; 84484; 85025; 93005; 99285; J1160; J2060; J2560; J3475; S9485

== ENCOUNTER → 2023-04-20 17:19 | Outpatient (BNV) | payer OTHER, SELFPAY | PROVIDERS: Admitting Provider Physician Assistant; Emergency Provider Emergency Medicine Emergency Medical Services; Visit Provider Internal Medicine | DX: I48.91 Unspecified atrial fibrillation (principal); I42.9 Cardiomyopathy, unspecified; F10.929 Alcohol use, unspecified with intoxication, unspecified; R45.851 Suicidal ideations; Z91.148 Patient's other noncompliance with medication regimen for other reason; F10.10 Alcohol abuse, uncomplicated | CPT/HCPCS: 99223 ==

== ENCOUNTER → 2023-04-20 17:19 | Outpatient (BNV) | payer OTHER, SELFPAY | PROVIDERS: Admitting Provider Physician Assistant; Emergency Provider Emergency Medicine Emergency Medical Services; Visit Provider Physician Assistant | DX: I42.9 Cardiomyopathy, unspecified (principal); I48.91 Unspecified atrial fibrillation | CPT/HCPCS: 99223; 99232; 99239 ==

== ENCOUNTER 2023-05-17 13:44 | Inpatient (IN) | payer OTHER, SELFPAY ==
--- NOTE | ~2023-05-17 | XR_ITS ---
EXAMINATION: XR CHEST CLINICAL INFORMATION: Chest pain, A. fib COMPARISON: Chest 04/20/2023, 12/21/2022 TECHNIQUE: AP upright portable view of the chest was obtained. 1423. FINDINGS: No focal consolidation or interstitial pulmonary edema. No right pleural effusion. Probable small left pleural effusion. Stable enlargement of the cardiac silhouette. No acute osseous abnormality. XR/XR chest 1V IMPRESSION: Stable enlargement of the cardiac silhouette. Probable small left pleural effusion. No CHF or pneumonia.
[2023-05-17 13:48] VITALS: BP 128/84; BP 183/157; PULSE 125; PULSE 170; RESP 18; TEMP 37.2; O2SAT 98; O2SAT 99; BMI 32.4
--- NOTE | 2023-05-17 13:57 | ECG_ITS ---
Test Reason : ARRHYTHMIA Blood Pressure : / mmHG Vent. Rate : 115 BPM Atrial Rate : 000 BPM P-R Int : 000 ms QRS Dur : 110 ms QT Int : 352 ms P-R-T Axes : 000 064 207 degrees QTc Int : 486 ms Atrial fibrillation with rapid ventricular response with premature ventricular or aberrantly conducted complexes Nonspecific T wave abnormality RSR' or QR pattern in V1 suggests right ventricular conduction delay Abnormal ECG When compared with ECG of 20-APR-2023 13:19, ST no longer depressed in Lateral leads Heart rate has decreased Referred By: Shai Irvin Electronically Signed By:KASEY MONTELONGO MD
--- NOTE | 2023-05-17 13:59 | ED.ARRPALP ---
HPI - Arrhythmia/Palpitations General Chief Complaint: Arrhythmia/Palpitations Stated Complaint: CP,H/O AFIB,NON MED COMP PER EMS Source: patient and EMS Mode of arrival: EMS Limitations: no limitations History of Present Illness HPI narrative: 57-year-old male with past medical history of AFib, PE on Eliquis, cardiomyopathy EF 10-15% due to ETOH abuse, CHF, HTN, presenting to the ED via EMS for palpitations, shortness of breath and chest pain. Patient states that he was drinking vodka today and drink a half a handle of vodka. He states that 15:00 hours he had a sudden onset of rapid heart rate and chest pain which she describes as a thumping/pounding sensation. He felt lightheaded, dizzy and short of breath. Patient states that he has missed some doses of his medications. He denied fever, chills, rhinorrhea, sore throat, chest pain, nausea, vomiting or diarrhea. Paramedics report that the patient had atrial fibrillation with RVR of 170 beats per minute, he was given diltiazem 22 mg IV his heart rate improved to 120-130 range. Patient's initial blood pressure was 187/57. Patient was seen in the emergency department on 04/20/2023 for alcohol intoxication and SI and was admitted for 2 days and treated for alcohol withdrawal with phenobarbital during while he was hospitalized. Related Data Home Medications Medication Instructions Recorded Confirmed thiamine mononitrate (vit B1) 100 100 mg PO DAILY 09/16/22 04/20/23 mg tablet (Vitamin B-1 (mononitrate)) Previous Rx's Medication Instructions Recorded amiodarone 200 mg tablet 200 mg PO DAILY 90 days #90 tabs 12/31/21 apixaban 5 mg tablet (Eliquis) 5 mg PO BID #180 tabs 12/31/21 empagliflozin 10 mg tablet 10 mg PO DAILY #30 tabs 11/18/22 (Jardiance) magnesium oxide 400 mg (241.3 mg 400 mg PO DAILY #90 tabs 03/13/23 magnesium) tablet metoprolol succinate 50 mg 50 mg PO DAILY #90 tabs 03/13/23 tablet,extended release 24 hr digoxin 125 mcg (0.125 mg) tablet 0.25 mg (2 x 125 mcg (0.125 mg)) 03/14/23 PO DAILY #60 tabs furosemide 40 mg tablet 80 mg PO DAILY 30 days #60 tabs 04/13/23 losartan 25 mg tablet 25 mg PO Q OTHER DAY 30 days #15 04/13/23 tabs folic acid 1 mg tablet 1 mg PO DAILY #90 tabs 04/14/23 spironolactone 25 mg tablet 25 mg PO DAILY #90 tabs 04/14/23 Allergies Allergy/AdvReac Type Severity Reaction Status Date / Time No Known Allergies Allergy Verified 03/11/23 08:50 [No Known Allergies*] Review of Systems Review of Systems: Yes all other systems are reviewed and are negative [facility] Past Medical History [facility] Narrative: Social history: Patient denies tobacco use. He does admit to drinking alcohol and drank a half a handle of vodka today. He denies drug use. Medical History Cardiomyopathy Chronic HFrEF (heart failure with reduced ejection fraction) Atrial fibrillation with rapid ventricular response Alcohol dependence with withdrawal Alcoholic hepatitis HTN (hypertension) Surgical History No pertinent past surgical history Family History Family History Father CAD (coronary artery disease) Mother Atrial fibrillation Social History Social History Household Members: None Housing: Apartment Do you presently have visiting nurse or other home services: No Unable to assess alcohol history related to: Unable to respond Alcohol intake: current Alcohol intake frequency: 3 or more drinks per day Alcohol type: hard liquor Patient Tobacco Use Status: Never used Tobacco Second Hand Smoke Exposure: No Advance Directives: Yes Advance Directives on File: Yes Advance Directives Date on File: 02/12/23 service: No Current occupational status: unemployed Physical Exam Vital Signs: Vital Signs: Last Vital Signs Temp 98.9 F 05/17/23 13:48 Pulse 112 H 05/17/23 16:37 Resp 16 05/17/23 16:37 BP 103/74 05/17/23 16:37 Pulse Ox 96 05/17/23 16:37 O2 Del Method Room Air 05/17/23 16:37 BMI result Body Mass Index 32.4 Vital signs revealed an elevated heart rate of 125 Exam General: Awake, alert in no distress, strong odor of alcohol on his breath, appears to be acutely intoxicated Head: Normocephalic, atraumatic EENT: PERRL, Lids normal, sclera normal, conjunctiva normal, nose normal , ears normal, throat without erythema or exudates Neck: Supple, no adenopathy, no trachea midline or C-spine tenderness Lung: breath sounds symmetric, no wheezing, rales or rhonchi Chest: symmetric movement, nontender Heart: Rapid rate, irregularly irregular rhythm normal S1, S2 no murmurs or rubs Abdomen: soft, non-tender, nondistended, normal bowel sounds Back: no vertebral tenderness, no CVAT Extremities: no deformities, moves all extremities symmetrically Neuro: Awake, alert, oriented, normal speech, cranial nerves intact, moves all extremities symmetrically Psych: Pleasant, cooperative, appears acutely intoxicated Medications Administered Discontinued Medications Generic Name Dose Route Start Last Admin Trade Name Freq PRN Reason Stop Dose Admin Diltiazem HCl 15 mg 05/17/23 15:19 05/17/23 15:36 Diltiazem Hcl 50 Mg/10 Ml Vial IVPUSH 05/17/23 15:20 15 mg STAT STA Administration Folic Acid 1 mg 05/17/23 15:19 05/17/23 15:37 Folic Acid 1 Mg Tablet PO 05/17/23 15:20 1 mg ONCE ONE Administration Sodium Chloride 1,000 mls @ 999 mls/hr 05/17/23 13:57 05/17/23 14:12 Ns IV 05/17/23 14:57 999 mls/hr .Q1H1M STA Administration Thiamine HCl 100 mg 05/17/23 15:19 05/17/23 15:37 Thiamine Hcl 100 Mg Tablet PO 05/17/23 15:20 100 mg ONCE ONE Administration Medical Decision Making Medical Decision Making MDM Narrative: 57-year-old male with past medical history of AFib, PE on Eliquis, cardiomyopathy EF 10-15% due to ETOH abuse, CHF, HTN, presenting to the ED via EMS for palpitations, shortness of breath and chest pain. Patient states that he was drinking vodka today and drink a half a handle of vodka. He states that 15:00 hours he had a sudden onset of rapid heart rate and chest pain which she describes as a thumping/pounding sensation. He felt lightheaded, dizzy and short of breath. Paramedics noted atrial fibrillation with RVR of 170 beats per minute, he was given diltiazem 22 mg IV his heart rate improved to 120-130 range. Patient's initial blood pressure was 187/57. Patient was recently admitted from 04/20/2023 until 04/22/2023 for acute alcohol intoxication, atrial fibrillation with RVR and had alcohol withdrawal treated with phenobarbital during his hospital course. His physical examination is consistent with acute alcohol intoxication in atrial fibrillation with a rapid RVR. Following evaluation was ordered: CBC, CMP, lipase, BNP, troponin, PT/INR, PTT, urine drug screen, ethanol level, urinalysis, EKG, chest x-ray one view. Patient will be treated with normal saline x1 L, he was placed on a cardiac and O2 saturation monitor and will be treated with diltiazem if his rate continues to be rapid. 15:24 Laboratory evaluation was concerning for malnutrition/thiamine/folate deficiency with an elevated MCV of 105.7. Patient also has slight elevation AST, ALT and alk-phos consistent with alcoholic hepatitis. High sensitive troponin I was elevated at 56.4 repeat due at 17:15 hours and BNP was elevated 1634 Patient's heart rate remains elevated between [id number] therefore he was given diltiazem 15 mg IV. 18:14 The patient's time zero troponin was 56.4 and 3 hour troponin was 47.3 suggesting the patient is not have myocardial injury secondary to his tachycardia. Patient's rate again has climbed above 130 therefore he was given diltiazem 10 mg IV and started diltiazem drip. Patient will also be given Ativan 1 mg IV. I will discuss admission with the covering hospitalist. Differential Diagnosis Differential Diagnoses: The differential diagnosis associated with the presentation includes Differential diagnosis includes was not limited to myocardial infarction, myocardial ischemia, acute alcohol intoxication, atrial fibrillation with rapid ventricular response, polysubstance use disorder, electrolyte abnormalities, anemia Admission/Observation Consideration of admission/observation: Escalation of care including admission/observation considered Lab Data MDM Lab Attestation statement: I reviewed the patient's lab results. Interpretation patient's laboratory evaluation is as follows: H&H was normal 13.9 and 40.8 but the patient has a high MCV of 105.7 consistent with malnutrition/thiamine/folate deficiency from ETOH use. Glucose elevated 133. AST and ALT elevated 80 in 48, alk-phos elevated 145. Ethanol level 353 consistent with acute alcohol intoxication. High sensitive troponin I was elevated at 56.4, BNP elevated 1635. 05/17/23 14:11 05/17/23 14:11 Labs: Lab Results 05/17/23 05/17/23 Range/Units 14:11 17:17 WBC 5.9 (4.8-10.8) X10*3/uL RBC 3.86 L (4.60-5.80) X10*6/uL Hgb 13.9 L (14.0-18.0) g/dl Hct 40.8 L (42.0-52.0) % MCV 105.7 H (80.0-98.0) fL MCH 36.0 H (27.0-33.0) pg MCHC 34.1 (31.0-36.0) g/dl RDW 16.5 H (11.0-16.0) % Plt Count 121 L (160-400) X10*3/uL MPV 11.9 (9.4-12.4) fL Immature Gran % (Auto) 0.3 (0.0-0.4) % Neut % (Auto) 70.5 (45-73) % Lymph % (Auto) 16.9 L (20-40) % Mclean % (Auto) 10.8 (2-11) % Eos % (Auto) 0.8 (0-4) % Baso % (Auto) 0.7 (0-2) % Lymph # (Auto) 1.0 L (1.2-4.9) X10*3/uL Mclean # (Auto) 0.6 (0.1-1.2) X10*3/uL Eos # (Auto) 0.1 (0.0-0.4) X10*3/uL Baso # (Auto) 0.0 (0.0-0.2) X10*3/uL Abs Immat Gran (auto) 0.02 (0.00-0.03) X10*3/uL Absolute Neuts (auto) 4.2 (2.0-8.3) x10*3/uL Absolute Nucleated RBC 0.000 (0.0-0.012) X10*3/uL Nucleated RBC % (auto) 0.0 (0.0-0.2) /100WBC PT 13.3 D (11.1-13.3) SEC INR 1.1 (0.9-1.1) APTT 31.7 (26.0-36.4) SEC Sodium 136 (135-145) mmol/L Potassium 4.2 D (3.3-5.1) mmol/L Chloride 102 (96-108) mmol/L Carbon Dioxide 19 L (22-29) mmol/L Anion Gap 19 (12-20) BUN 16 (9-16) mg/dL Creatinine 0.96 (0.5-1.4) mg/dL Estim Creat Clear Calc 94.9 Estimated GFR > 60 Random Glucose 133 H (60-115) mg/dL Calcium 8.8 (8.4-10.2) mg/dL Total Bilirubin 2.1 H (0.0-1.0) mg/dL AST 80 H (5-37) U/L ALT 48 H (0-40) U/L Alkaline Phosphatase 145 H (39-117) U/L Troponin I High Sens 56.4 H D 47.3 H (<3.5-35.0) ng/L B-Natriuretic Peptide 1634 H (<100) pg/mL Total Protein 7.3 (6.5-8.0) g/dL Albumin 3.9 (3.5-5.0) g/dL Lipase 16 (8-78) U/L Ethyl Alcohol 353 H* mg/dL Independent Interpretation I performed an independent interpretation of an: EKG Interpretation: My independent interpretation of the patient's 12 EKG done at 13:54 hours is as follows atrial fibrillation with a rapid ventricular response of 115, prolonged QRS duration of 110 milliseconds, prolonged QTC interval 486 milliseconds, no ST segment elevation, no ST segment depression, Q-waves in V1 and V2 consistent with old anterior myocardial infarction, frequent PVCs, no significant T-wave abnormalities. When compared to EKG dated 04/20/2023 the Q-waves are old, previous EKG had ST segment depression V5 and V6 which is not present on his EKG, PVCs are also new. Discharge Plan Discharge Patient Disposition: Admitted As Inpatient Prescriptions: No Action amiodarone 200 mg tablet 200 mg PO DAILY 90 Days Qty: 90 1RF Eliquis 5 mg tablet 5 mg PO BID Qty: 180 1RF Jardiance 10 mg tablet 10 mg PO DAILY Qty: 30 1RF furosemide 40 mg tablet 80 mg PO DAILY 30 Days Qty: 60 1RF Protocol: Hold for SBP< HOLD for SBP < : 90 Rx Instructions: OVERDUE FOR APPT. PLEASE CALL [phone] TO SCHEDULE FOLLOW UP SO WE CAN CONTINUE REFILLING YOUR MEDICATIONS. losartan 25 mg tablet 25 mg PO Q OTHER DAY 30 Days Qty: 15 1RF Hold Instructions: Resume on 03/02/23. hold until seen by pcp Rx Instructions: OVERDUE FOR APPT. PLEASE CALL [phone] TO SCHEDULE FOLLOW UP SO WE CAN CONTINUE REFILLING YOUR MEDICATIONS. folic acid 1 mg tablet 1 mg PO DAILY Qty: 90 1RF Rx Instructions: OVERDUE FOR APPT. PLEASE CALL [phone] TO SCHEDULE FOLLOW UP SO WE CAN CONTINUE REFILLING YOUR MEDICATIONS. spironolactone 25 mg tablet 25 mg PO DAILY Qty: 90 0RF Rx Instructions: OVERDUE FOR APPT. PLEASE CALL [phone] TO SCHEDULE FOLLOW UP SO WE CAN CONTINUE REFILLING YOUR MEDICATIONS. metoprolol succinate 50 mg Tablet Extended Release 24 Hr 50 mg PO DAILY Qty: 90 0RF Protocol: Hold for SBP/HR < HOLD for SBP < : 90 HOLD for HR < : 60 magnesium oxide 400 mg (241.3 mg magnesium) Tablet 400 mg PO DAILY Qty: 90 0RF digoxin 125 mcg (0.125 mg) Tablet 0.25 mg PO DAILY Qty: 60 0RF thiamine mononitrate (vit B1) [Vitamin B-1 (mononitrate)] 100 mg tablet 100 mg PO DAILY
[2023-05-17] MEDS: 0.9 % Sodium Chloride 1,000 ML 999 ML IV (14:12)
[2023-05-17 14:20] LABS: MANUAL DIFF FLAG NO
[2023-05-17 14:22] LABS: Basophils Percent Auto 0.7 % (0-2); Eosinophils Absolute Auto 0.1 X10*3/uL (0.0-0.4); Eosinophils Percent Auto 0.8 % (0-4); Hematocrit 40.8 % (42.0-52.0); Hemoglobin 13.9 g/dl (14.0-18.0); Imm Gran Abs Auto 0.02 X10*3/uL (0.00-0.03); Imm Gran Pct Auto 0.3 % (0.0-0.4); Lymphocytes Percent Auto 16.9 % (20-40); Mean Corpuscular HGB Conc 34.1 g/dl (31.0-36.0); Mean Corpuscular Volume 105.7 fL (80.0-98.0); Mean Platelet Volume 11.9 fL (9.4-12.4); Monocytes Absolute Auto 0.6 X10*3/uL (0.1-1.2); Monocytes Percent Auto 10.8 % (2-11); Neutrophils Absolute Auto 4.2 x10*3/uL (2.0-8.3); Neutrophils Percent Auto 70.5 % (45-73); Platelet Count 121 X10*3/uL (160-400); Red Blood Count 3.86 X10*6/uL (4.60-5.80); Red Cell Distribution Width 16.5 % (11.0-16.0); White Blood Count 5.9 X10*3/uL (4.8-10.8)
[2023-05-17 14:27] LABS: INTERNATIONAL NORM RATIO 1.1 (0.9-1.1); Prothrombin Time 13.3 SEC (11.1-13.3)
[2023-05-17 14:29] LABS: Partial Thromboplastin Time 31.7 SEC (26.0-36.4)
[2023-05-17 14:39] LABS: Alanine Aminotransferase 48 U/L (0-40); Albumin Level 3.9 g/dL (3.5-5.0); Alkaline Phosphatase 145 U/L (39-117); Anion Gap 19 (12-20); Aspartate Amino Transferase 80 U/L (5-37); Bilirubin Total 2.1 mg/dL (0.0-1.0); Blood Urea Nitrogen 16 mg/dL (9-16); Calcium 8.8 mg/dL (8.4-10.2); Carbon Dioxide 19 mmol/L (22-29); Chloride 102 mmol/L (96-108); Creatinine Clr Calc Pharmacy 94.9; Estimated Glomerular Filt Rate > 60; Ethanol 353 mg/dL; Glucose Random 133 mg/dL (60-115); Lipase 16 U/L (8-78); Potassium 4.2 mmol/L (3.3-5.1); Sodium 136 mmol/L (135-145); Total Protein 7.3 g/dL (6.5-8.0)
[2023-05-17 14:42] LABS: B Type Natriuretic Peptide 1634 pg/mL (<100)
[2023-05-17 14:43] LABS: Troponin-I High Sensitivity 56.4 ng/L (<3.5-35.0)
[2023-05-17 15:23] VITALS: BP 116/89; PULSE 123; RESP 22; O2SAT 97
[2023-05-17] MEDS: dilTIAZem HCL 50 MG/10 ML VIAL 15 MG IVPUSH (15:36)
[2023-05-17] MEDS: Thiamine HCL 100 MG TABLET PO (15:37)
[2023-05-17] MEDS: Folic Acid 1 MG TABLET PO (15:37)
[2023-05-17 15:38] VITALS: BP 116/89; PULSE 122; RESP 16; O2SAT 97
--- NOTE | 2023-05-17 15:39 | PC.NURSE ---
pt is sitting upright in bed, pt is caox4 with non labored resps. pt speaks in full clear sentences. pt is denying chest discomfort at this time. pt has had 1 ns, hr 120-130 in afib in lead 2. pt has been reevaluiated by ed . plan is to recheck trop at 1715. pt has mild pitting edema to lower legs. bronchial and vesicular ls are clear and = in all lama.
[2023-05-17 16:37] VITALS: BP 103/74; PULSE 112; RESP 16; O2SAT 96
[2023-05-17 17:44] LABS: Troponin-I High Sensitivity 47.3 ng/L (<3.5-35.0)
--- NOTE | 2023-05-17 18:35 | MHC.RECOVSUP ---
? Reason for consult Recovery Support o Current location: ED3 o Identified substance use concern: Alcohol - Support ? Intervention: o Community resources provided o Harm reduction discussion ? Plan: o Patient to follow up with [facility] after discharge ? Additional information: Met with Patient and we talk about Recovery and Harm reduction... We talk about [facility] [place] and how important it to be around others in recovery... Resources was given to patient to follow up on release from the Hospital
[2023-05-17] MEDS: LORazepam 2 MG/ML VIAL 1 MG IVPUSH (18:37)
[2023-05-17] MEDS: dilTIAZem HCL 50 MG/10 ML VIAL 10 MG IVPUSH (18:37)
[2023-05-17] MEDS: dilTIAZem HCL 125 MG in 0.9 % Sodium Chloride 100 ML 10 MG IVCONT (18:38)
[2023-05-17 18:50] VITALS: BP 103/74; PULSE 120; RESP 18; O2SAT 94
--- NOTE | 2023-05-17 18:51 | PC.NURSE ---
pt has remained afib 120-130. no other change in presentation. pt is dispo to admission , pt aware as to plan of care.
--- NOTE | 2023-05-17 19:01 | PHA.MEDREC ---
Pharmacy Consult ? Medication Reconciliation Pharmacy has completed the medication reconciliation. Patient confirmed all medications based on claim and previous discharge summary. Patient admits to nonadherence to medications. Reports he does not take any medications when he is drinking due potential side effect and the it would be a sentence to take medications and drink alcohol. Patient report having 10 bottles of digoxin at home. Judy Lowe, PharmD
[2023-05-17 19:30] VITALS: BP 105/79; PULSE 109; RESP 20; O2SAT 94
--- NOTE | 2023-05-17 19:35 | PM.IMHP ---
History of Present Illness Date of Service: 05/17/23 Chief Complaint: Palpitations This is a 57-year-old male with pertinent history of atrial fibrillation on anticoagulation, congestive heart failure with reduced ejection fraction, alcohol use disorder, essential hypertension who presents to the emergency department for evaluation of palpitations and dyspnea. Patient states he was drinking vodka on the day of presentation when he had a feeling of his heart racing too fast. He also felt lightheaded and was dyspneic. No orthopnea or PND. Patient admits that he is not compliant with his p.o. medications. No more chills, chest discomfort, abdominal pain, changes in urinary or bowel habits. In the emergency department, patient was found to be in AFib with RVR and initiated on IV diltiazem drip. Review of Systems Constitutional: Constitutional: Reports no additional constitutional complaints Cardiovascular: Cardiovascular: Reports rapid heart rate and Reports dyspnea Respiratory: Respiratory: Reports dyspnea Gastrointestinal: Gastrointestinal: Reports no additional gastrointestinal complaints Genitourinary: Genitourinary: Reports no additional male genitourinary complaints [facility] Medical History Cardiomyopathy Chronic HFrEF (heart failure with reduced ejection fraction) Atrial fibrillation with rapid ventricular response Alcohol dependence with withdrawal Alcoholic hepatitis HTN (hypertension) Family History Father CAD (coronary artery disease) Mother Atrial fibrillation Surgical History No pertinent past surgical history Social History Household Members: None Housing: Apartment Do you presently have visiting nurse or other home services: No Unable to assess alcohol history related to: Unable to respond Alcohol intake: current Alcohol intake frequency: 3 or more drinks per day Alcohol type: hard liquor Patient Tobacco Use Status: Never used Tobacco Second Hand Smoke Exposure: No Advance Directives: Yes Advance Directives on File: Yes Advance Directives Date on File: 02/12/23 service: No Current occupational status: unemployed Meds Allergies Allergy/AdvReac Type Severity Reaction Status Date / Time No Known Allergies Allergy Verified 03/11/23 08:50 [No Known Allergies*] Active Medications: Current Medications Acetaminophen (Acetaminophen 325 Mg Tablet) 650 mg PO Q6H PRN PRN Reason: Pain, Mild (Pain Scale 1-3) Diltiazem HCl 125 mg/ Sodium (Chloride) 125 mls @ 0 mls/hr IVCONT .Q0M [facility]; Protocol Last Titration: 05/17/23 19:12 Dose: 15 mg/hr, 15 mls/hr Melatonin (Melatonin 3 Mg Tablet) 6 mg PO BEDTIME PRN PRN Reason: Insomnia Ondansetron HCl (Ondansetron Hcl 4 Mg/2 Ml Vial) 4 mg IVPUSH Q8H PRN PRN Reason: Nausea and Vomiting Sodium Chloride (0.9 % Sodium Chloride Flush 3 Ml Syringe) 3 ml IVFLUSH QSHIFT [facility] Home Medications Medication Instructions Recorded Confirmed Last Taken Type thiamine mononitrate (vit B1) 100 100 mg PO DAILY 09/16/22 05/17/23 05/15/23 History mg tablet (Vitamin B-1 (mononitrate)) Physical Exam Vital Signs and Narrative: Vital Signs: Last Vital Signs Temp 98.9 F 05/17/23 13:48 Pulse 109 H 05/17/23 19:30 Resp 20 05/17/23 19:30 BP 105/79 05/17/23 19:30 Pulse Ox 94 05/17/23 19:30 O2 Del Method Room Air 05/17/23 19:30 BMI result Body Mass Index 32.4 Middle-aged male lying in bed in mild distress Neck supple, no JVD Irregularly irregular, S1-S2 heard Regular breath sounds bilaterally, no wheezing or crackles appreciated Abdomen soft nontender, no guarding, no rigidity Patient is awake, alert and oriented to self, place, time and person ; no focal motor deficit Psych: Normal mood Mild pedal edema Results Labs 05/17/23 14:11 05/17/23 14:11 Labs: Laboratory Results - last 24 hr 05/17/23 14:11 MCV 105.7 H MCH 36.0 H MCHC 34.1 RDW 16.5 H Plt Count 121 L MPV 11.9 Immature Gran % (Auto) 0.3 Neut % (Auto) 70.5 Lymph % (Auto) 16.9 L Maury % (Auto) 10.8 Eos % (Auto) 0.8 Baso % (Auto) 0.7 Lymph # (Auto) 1.0 L Maury # (Auto) 0.6 Eos # (Auto) 0.1 Baso # (Auto) 0.0 Abs Immat Gran (auto) 0.02 Absolute Neuts (auto) 4.2 Absolute Nucleated RBC 0.000 Nucleated RBC % (auto) 0.0 PT 13.3 D INR 1.1 APTT 31.7 Anion Gap 19 Estim Creat Clear Calc 94.9 Estimated GFR > 60 Random Glucose 133 H Calcium 8.8 Total Bilirubin 2.1 H AST 80 H ALT 48 H Alkaline Phosphatase 145 H B-Natriuretic Peptide 1634 H Total Protein 7.3 Albumin 3.9 Lipase 16 Ethyl Alcohol 353 H* Imaging Radiologist's Impressions: Impressions Chest X-Ray 05/17/23 14:24 IMPRESSION: Stable enlargement of the cardiac silhouette. Probable small left pleural effusion. No CHF or pneumonia. Assessment and Plan (1) Atrial fibrillation with rapid ventricular response: Status: Acute (2) Alcohol use disorder: Status: Acute Plan This is a 57-year-old male with pertinent history of atrial fibrillation on anticoagulation, congestive heart failure with reduced ejection fraction, alcohol use disorder, essential hypertension who presents to the emergency department for evaluation of palpitations and dyspnea. #. Afib with RVR: Initiated on IV diltiazem drip in the ER. Obtaining TSH, Echo and Consulted cardiology. On eliquis, amiodarone and digoxin at home but noncompliant with his medications #. Alcohol use disorder: Initiated on phenobarb protocol. Monitor CIWA. On thiamine and folic acid. Consulting addiction team #. Congestive heart failure with reduced ejection fraction: No decompensation during admission. Continue home lasix, beta-joan, Jardiance, ARB #. Elevated troponin: Likely due to increased demand. Will trend #. Thrombocytopenia: Likely due to alcohol use disorder DVT prophylaxis: Eliquis Admit as inpatient and will require two night minimum hospital stay for IV diltiazem drip, monitoring of hemodynamics (as above), which is not possible in a lesser acute setting. High risk for decompensation. Specialist consult pending Quality Stroke Does the patient have a stroke diagnosis?: No VTE Prior VTE?: No VTE Risk Level:: Medical - moderate - high VTE Device Contraindication: Treatment Not Indicated VTE Drug Contraindication: N/A - Med Ordered
[2023-05-17 20:35] LABS: Thyroid Stimulating Hormone 3.63 uIU/mL (0.32-4.0)
[2023-05-17] MEDS: PHENobarbitaL sodium 130 MG/ML IM ONCE 396.5 MG IM (20:44)
--- NOTE | 2023-05-17 20:47 | PC.NURSE ---
care assumed of patient at 1900; pt in bed, noticeably anxious, pt has multiple questions and concerns about meds and his current condition. both this RN and previous RN at bedside answering pt questions. HR noted to be 120-126. cardizem drip titrated up to 15mL/hr per protocol. will continue to monitor.
[2023-05-17] MEDS: PHENobarbitaL sodium 130 MG/ML VIAL IM Q3Hx2 297.7 MG IM (23:13)
[2023-05-18] VITALS (8 sets, daily range): BP systolic 98–142; BP diastolic 64–82; PULSE 107–130; RESP 18–24; TEMP 36.2–37.5; O2SAT 92–98; BMI 32.5
--- NOTE | 2023-05-18 00:31 | PC.NURSE ---
report given to Yessenia CROWDER on IMC
--- NOTE | 2023-05-18 02:20 | PC.NURSE ---
Assumed care of pt brought up from ED on stretcher. Pt AOx4, tired but appropriate and calm. Lungs clear on RA. Afib on tele 90s-120s. Paged MD to verify if diltiazem gtt was still needed d/t HR being within parameters and pt not coming up from ED with gtt on. Per MD ok to not have gtt going and only restart if pt HR goes over 140s. Gtt paused. Pt educated on the the use of gtt and understood. Educated on the high fall risk protocol and the reason for it, pt agreeable. CIWA 0. Pt comfortably resting in bed with call tillman in reach.
[2023-05-18] MEDS: PHENobarbitaL sodium 130 MG/ML VIAL IM Q3Hx2 297.7 MG IM (02:40)
--- NOTE | 2023-05-18 07:00 | CA_ITS ---
Transthoracic Echocardiogram Patient (Last, First, Middle): Abner Galvan J Gender: Male Date of : 1965 Age: 57 Procedure Date: 05/18/2023 Procedure Type: Transthoracic Echocardiogram Location: OP Height: 177.8 cm Weight: 102.51 kg BSA: 2.20 m2 Heart Rate: bpm BP: 120 / 80 mmHg Plastic Tubing Insulation Supervisor: JEFFREY Referring MD: Margarita Bourgeois MD Symptoms: Afib Study Quality: Fair ECG Rhythm: Atrial Fibrillation with rapid rate Conclusions: - The left ventricular systolic function is severely decreased. The visually estimated ejection fraction is between 15-20%. - There is moderately decreased right ventricular systolic function. - Moderate biatrial enlargement. - No obvious valvular pathology seen on this study. Findings Procedure Information Contrast agent, definity, is being given per protocol without apparent complications. Left Ventricle Moderately increased left ventricular cavity size. There is normal left ventricular wall thickness. The left ventricular systolic function is severely decreased. The visually estimated ejection fraction is between 15 20%. There is severe global hypokinesis. Diastolic function is indeterminate on the basis of available data. Right Ventricle Moderately increased right ventricular cavity size. There is moderately decreased right ventricular systolic function. Atria Moderate biatrial enlargement. Aortic Valve There is a normal trileaflet aortic valve. There is no aortic valve stenosis. There is no aortic valve regurgitation. Mitral Valve The mitral valve appears normal. There is trace mitral valve regurgitation. There is no mitral valve stenosis. Pulmonic Valve The pulmonic valve is likely normal. Tricuspid Valve Normal tricuspid valve structure. There is trace tricuspid valve regurgitation. There is no evidence of pulmonary hypertension. Great Vessels The asc aorta is normal in size. Venous The inferior vena cava is dilated and collapses less than 50% with inspiration. Pericardium/Pleural There is a trivial pericardial effusion. Prior Study Comparison No significant change compared to prior study dated: 10/07/2022. Recommendations, Care & Conclusions No obvious valvular pathology seen on this study. Measurements 2D Linear Measurements IVSd: 0.92 0.6-0.9/0.6-1.0 cm LVIDd: 6.66 3.9-5.3/4.2-5.9 cm LVIDd Index: 3.03 2.4-3.2/2.2-3.1 cm/m2 LVIDs: 6.02 2.0-3.6 cm LVPWd: 1.02 0.7-1.1 cm Ao Root: 4.30 2.1-3.5 cm LA Diam: 4.40 2.7-3.8/3.0-4.0 cm LAIDs Index: 2.00 1.5-2.3 cm/m2 LV Mass: 353.81 67-162/88-224 g LV Mass Index: 160.82 43-95/49-115 g/m2 LVOT Diam: 2.50 3.0+(-)1.3 cm 2D Systolic Function EF 4C: 21.00 >55% EF 2C: 12.30 >55% EF BiP: 19.40 >55% Mitral Valve MV Pk E: 0.83 MV Decel Time: 147.00 PHT: 43.00 MVA PHT: 5.12 Decel Sharp: 5.61 Aortic Valve AoV Pk Justice: 0.77 AoV Mn Justice: 0.60 AoV VTI: 0.11 AoV Pk Grad: 2.00 Aov Mn Grad: 2.00 LYNETTE Cont.VTI: 3.41 LVOT LVOT Pk Justice: 0.59 LVOT Mn Justice: 0.45 LVOT VTI: 0.08 LVOT Pk Grad: 1.00 LVOT Mn Grad: 1.00 LVOT Diam: 2.50 LVOT Area: 4.91 Diastolic Function MV Pk E: 0.83 Right Ventricle TAPSE (mm): 12.00 TVS' Justice: 7.00 Tricuspid Valve TR Pk Justice: 2.10 TR Pk Grad: 18.00 RA Press: 15.00 RVSP: 33.00 Great Vessels Aorta Ao Root-2D: 4.30 2.0-3.7 cm Ao Asc: 3.80 2.1-3.4 cm Pulmonary Valve PV Pk Justice: 0.55 Peak PV Grad: 1.00 Updated in Other Vendor System with Status of Final Justen Rojas MD electronically signed on 05/18/2023 11:39:07 AM with status of Final
[2023-05-18 07:42] LABS: MANUAL DIFF FLAG NO
[2023-05-18 07:47] LABS: Basophils Percent Auto 0.3 % (0-2); Eosinophils Percent Auto 0.7 % (0-4); Hematocrit 33.2 % (42.0-52.0); Hemoglobin 11.3 g/dl (14.0-18.0); Imm Gran Abs Auto 0.02 X10*3/uL (0.00-0.03); Imm Gran Pct Auto 0.3 % (0.0-0.4); Lymphocytes Absolute Auto 0.7 X10*3/uL (1.2-4.9); Lymphocytes Percent Auto 12.3 % (20-40); Mean Corpuscular Hemoglobin 36.9 pg (27.0-33.0); Mean Corpuscular Volume 108.5 fL (80.0-98.0); Monocytes Absolute Auto 0.8 X10*3/uL (0.1-1.2); Neutrophils Absolute Auto 4.3 x10*3/uL (2.0-8.3); Neutrophils Percent Auto 73.4 % (45-73); Red Blood Count 3.06 X10*6/uL (4.60-5.80); Red Cell Distribution Width 16.4 % (11.0-16.0); White Blood Count 5.9 X10*3/uL (4.8-10.8)
--- NOTE | 2023-05-18 07:49 | PC.NURSE ---
pt had 5 beat VT while asleep, asymptomatic, informed, no new orders at this time
[2023-05-18 08:00] LABS: Anion Gap 15 (12-20); Blood Urea Nitrogen 12 mg/dL (9-16); Calcium 8.3 mg/dL (8.4-10.2); Carbon Dioxide 23 mmol/L (22-29); Chloride 101 mmol/L (96-108); Creatinine Clr Calc Pharmacy 120.7; Estimated Glomerular Filt Rate > 60; Glucose Random 138 mg/dL (60-115); Potassium 3.5 mmol/L (3.3-5.1); Sodium 135 mmol/L (135-145)
[2023-05-18 08:13] LABS: Troponin-I High Sensitivity 41.2 ng/L (<3.5-35.0)
[2023-05-18 08:15] LABS: Platelet Count 74 X10*3/uL (160-400)
--- NOTE | 2023-05-18 09:03 | PC.NURSE ---
Addendum entered by Chao Melendez RN 05/18/23 18:11: Mag to be rechecked tomorrow AM per Addendum entered by Chao Melendez RN 05/18/23 10:01: critical Mag received, informed MD of result Addendum entered by Chao Melendez RN 05/18/23 09:03: pt using restroom while HR increased Original Note: pt HR up to 150's, informed. per hold on dilt drip
[2023-05-18] MEDS: PHENobarbitaL 15 MG TABLET 45 MG PO ×2 (09:11→20:57)
[2023-05-18] MEDS: Thiamine HCL 100 MG TABLET PO (09:11)
[2023-05-18] MEDS: Apixaban 5 MG TABLET PO ×2 (09:11→20:56)
[2023-05-18] MEDS: Spironolactone 25 MG TABLET PO (09:11)
[2023-05-18] MEDS: Empagliflozin 10 MG TABLET PO (09:11)
[2023-05-18] MEDS: Losartan Potassium 25 MG TABLET PO (09:11)
[2023-05-18] MEDS: Magnesium Oxide 400 MG TABLET PO (09:11)
[2023-05-18] MEDS: Furosemide 40 MG TABLET 80 MG PO (09:11)
[2023-05-18] MEDS: Amiodarone HCL 200 MG TABLET PO (09:12)
[2023-05-18] MEDS: Folic Acid 1 MG TABLET PO (09:12)
[2023-05-18] MEDS: Metoprolol Succinate ER 50 MG TAB.ER.24H PO (09:12)
[2023-05-18] MEDS: Digoxin 0.125 MG TABLET 0.25 MG PO (09:12)
--- NOTE | 2023-05-18 09:25 | PM.CNCAR ---
History of Present Illness History of Present Illness Date of Service: 05/18/23 Chief complaint: Palpitations Narrative: This is a cardiology consultation regarding atrial fibrillation rapid rate. Patient is well known to Cardiology Service and he has been seen numerous times. Significant alcohol issues and drinks heavily. However, when I questioned him, he states he is not a heavy drinker at all and only does this off and on. According to him, he drank over the weekend but when he came to the hospital, alcohol levels are well over 300. Hence difficult to believe the patient's story completely. This time apparently took quarter bottle of vodka. Last time, he was admitted for similar reason where he states that he took half a bottle of vodka and question of suicidal ideation with plan to jumping off a 3rd story building. With regard to medications, again not sure if he actually takes him. Patient states he does but in the H&P, there is mention that he does not take his meds at home. Again not knowing what he actually does at home. Symptoms are shortness of breath and palpitations. He was found to be in atrial fibrillation rapid rate. Then subsequently admitted. Currently when I evaluate him, he states he is feeling okay. Eating breakfast. He is aware of the fact that he should not be drinking like this but he seems to relapse as well as he gets discharged. Review of Systems Review of Systems: Yes all other systems are reviewed and are negative Constitutional: Constitutional: Reports as per HPI and Reports no additional constitutional complaints Eyes: Eyes: Reports as per HPI and Denies no additional eye complaints ENT: Denies system reviewed and no additional complaints, except as documented and Reports as per HPI Cardiovascular: Cardiovascular: Reports as per HPI, Reports no additional cardiovascular complaints, Denies acrocyanosis, Denies cool extremities, Denies chest pain, Denies leg edema, Denies lightheadedness, Reports palpitations and Reports dyspnea Respiratory: Respiratory: Reports as per HPI, Denies no additional respiratory complaints and Reports dyspnea Gastrointestinal: Gastrointestinal: Reports as per HPI and Denies no additional gastrointestinal complaints Genitourinary: Genitourinary: Reports no additional male genitourinary complaints and Reports as per HPI Musculoskeletal: Musculoskeletal: Reports no additional musculoskeletal complaints and Reports as per HPI Integumentary/Breasts: Skin/Breast: Reports system reviewed and no additional complaints, except as docu Neurologic: Reports system reviewed and no additional complaints, except as documented and Reports as per HPI Psychiatric: Psychiatric: Reports no additional psychiatric complaints and Reports as per HPI Endocrine: Endocrine: Reports no additional endocrine complaints, Reports as per HPI and Reports palpitations Hematologic/Lymphatic: Hematologic/Lymphatic: Reports no additional hematologic/lymphatic complaints and Reports as per HPI Allergic/Immunologic: Allergic/Immunologic: Reports no additional allergic/immunologic complaints and Reports as per HPI [facility] Past Medical History Medical History Cardiomyopathy Chronic HFrEF (heart failure with reduced ejection fraction) Atrial fibrillation with rapid ventricular response Alcohol dependence with withdrawal Alcoholic hepatitis HTN (hypertension) Family History Family History Father CAD (coronary artery disease) Mother Atrial fibrillation Surgical History Surgical History No pertinent past surgical history Social History Social History Household Members: None Housing: Apartment Do you presently have visiting nurse or other home services: No Unable to assess alcohol history related to: Unable to respond Alcohol intake: current Alcohol intake frequency: 3 or more drinks per day Alcohol type: hard liquor Patient Tobacco Use Status: Never used Tobacco Second Hand Smoke Exposure: No Advance Directives Date on File: 02/12/23 service: No Current occupational status: unemployed Meds Allergies Allergy/AdvReac Type Severity Reaction Status Date / Time No Known Allergies Allergy Verified 03/11/23 08:50 [No Known Allergies*] Active Medications: Current Medications Acetaminophen (Acetaminophen 325 Mg Tablet) 650 mg PO Q6H PRN PRN Reason: Pain, Mild (Pain Scale 1-3) Amiodarone HCl (Amiodarone Hcl 200 Mg Tablet) 200 mg PO DAILY [facility] Last Admin: 05/18/23 09:12 Dose: 200 mg Apixaban (Apixaban 5 Mg Tablet) 5 mg PO BID [facility] Last Admin: 05/18/23 09:11 Dose: 5 mg Digoxin (Digoxin 0.125 Mg Tablet) 0.25 mg PO DAILY [facility] Last Admin: 05/18/23 09:12 Dose: 0.25 mg Empagliflozin (Empagliflozin 10 Mg Tablet) 10 mg PO DAILY [facility] Last Admin: 05/18/23 09:11 Dose: 10 mg Folic Acid (Folic Acid 1 Mg Tablet) 1 mg PO DAILY [facility] Last Admin: 05/18/23 09:12 Dose: 1 mg Furosemide (Furosemide 40 Mg Tablet) 80 mg PO DAILY [facility]; Protocol Last Admin: 05/18/23 09:11 Dose: 80 mg Losartan Potassium (Losartan Potassium 25 Mg Tablet) 25 mg PO Q48H [facility]; Protocol Last Admin: 05/18/23 09:11 Dose: 25 mg Magnesium Oxide (Magnesium Oxide 400 Mg Tablet) 400 mg PO DAILY [facility] Last Admin: 05/18/23 09:11 Dose: 400 mg Melatonin (Melatonin 3 Mg Tablet) 6 mg PO BEDTIME PRN PRN Reason: Insomnia Metoprolol Succinate (Metoprolol Succinate Er 50 Mg Tab.Er.24h) 50 mg PO DAILY [facility]; Protocol Last Admin: 05/18/23 09:12 Dose: 50 mg Ondansetron HCl (Ondansetron Hcl 4 Mg/2 Ml Vial) 4 mg IVPUSH Q8H PRN PRN Reason: Nausea and Vomiting Pharmacy Consult (Consult Rx Etoh Phenob Im/Po) 1 each MISCELLANE ONCE PRN; Protocol PRN Reason: Consult order Phenobarbital (Phenobarbital 15 Mg Tablet) 45 mg PO BID [facility]; Protocol Stop: 05/19/23 21:01 Last Admin: 05/18/23 09:11 Dose: 45 mg Phenobarbital (Phenobarbital 30 Mg Tablet) 30 mg PO BID [facility]; Protocol Stop: 05/21/23 21:01 Phenobarbital (Phenobarbital 15 Mg Tablet) 15 mg PO DAILY [facility]; Protocol Stop: 05/23/23 09:01 Sodium Chloride (0.9 % Sodium Chloride Flush 3 Ml Syringe) [facility] Last Admin: 05/18/23 07:38 Dose: Not Given Spironolactone (Spironolactone 25 Mg Tablet) 25 mg PO DAILY [facility]; Protocol Last Admin: 05/18/23 09:11 Dose: 25 mg Thiamine HCl (Thiamine Hcl 100 Mg Tablet) 100 mg PO DAILY [facility] Last Admin: 05/18/23 09:11 Dose: 100 mg Home Medications Medication Instructions Recorded Confirmed Last Taken Type thiamine mononitrate (vit B1) 100 100 mg PO DAILY 09/16/22 05/17/23 05/15/23 History mg tablet (Vitamin B-1 (mononitrate)) Physical Exam Vital Signs: Vital Signs: Last Vital Signs Temp 98.8 F 05/18/23 07:02 Pulse 114 H 05/18/23 07:02 Resp 20 05/18/23 07:02 BP 120/80 05/18/23 07:02 Pulse Ox 92 05/18/23 07:02 O2 Del Method Room Air 05/18/23 07:02 BMI result Body Mass Index 32.5 Const: General: comfortable and no acute distress Orientation/consciousness: patient oriented x3 HEENT: Other: Unremarkable Head: Yes normal to inspection Neck: Neck: Yes normal visual inspection Chest: Chest palpation & inspection: normal inspection of the chest Resp: Auscultation: clear to auscultation bilaterally Cardio: Palpation: normal PMI Heart sounds: S1 normal heart sound present, S2 normal heart sound present, no gallops, no murmurs and no rubs GI: Palpation (GI): Soft to palpation Back/Spine/Pelvis: Other: unremarkable Skin: General skin exam: no rashes or lesions noted Neuro: General: patient oriented x3 Extrem: General: Yes normal to inspection Psych: Mental Status: mental status grossly normal Objective Labs and Meds 05/18/23 07:12 05/18/23 07:12 Lab results: Laboratory Results - last 24 hr 05/17/23 05/17/23 05/18/23 14:11 17:17 07:12 WBC 5.9 5.9 RBC 3.86 L 3.06 L D Hgb 13.9 L 11.3 L Hct 40.8 L 33.2 L MCV 105.7 H 108.5 H MCH 36.0 H 36.9 H MCHC 34.1 34.0 RDW 16.5 H 16.4 H Plt Count 121 L 74 L D MPV 11.9 12.0 Immature Gran % (Auto) 0.3 0.3 Neut % (Auto) 70.5 73.4 H Lymph % (Auto) 16.9 L 12.3 L [place] % (Auto) 10.8 13.0 H Eos % (Auto) 0.8 0.7 Baso % (Auto) 0.7 0.3 Lymph # (Auto) 1.0 L 0.7 L [place] # (Auto) 0.6 0.8 Eos # (Auto) 0.1 0.0 Baso # (Auto) 0.0 0.0 Abs Immat Gran (auto) 0.02 0.02 Absolute Neuts (auto) 4.2 4.3 Absolute Nucleated RBC 0.000 0.000 Nucleated RBC % (auto) 0.0 0.0 PT 13.3 D INR 1.1 APTT 31.7 Sodium 136 135 Potassium 4.2 D 3.5 Chloride 102 101 Carbon Dioxide 19 L 23 Anion Gap 19 15 BUN 16 12 Creatinine 0.96 0.83 Estim Creat Clear Calc 94.9 120.7 Estimated GFR > 60 > 60 Random Glucose 133 H 138 H Calcium 8.8 8.3 L Total Bilirubin 2.1 H AST 80 H ALT 48 H Alkaline Phosphatase 145 H Troponin I High Sens 56.4 H D 47.3 H 41.2 H B-Natriuretic Peptide 1634 H Total Protein 7.3 Albumin 3.9 Lipase 16 TSH 3.63 Ethyl Alcohol 353 H* Imaging Radiologist's impression: Impressions Chest X-Ray 05/17/23 14:24 IMPRESSION: Stable enlargement of the cardiac silhouette. Probable small left pleural effusion. No CHF or pneumonia. Assessment and Plan (1) Atrial fibrillation with rapid ventricular response: Status: Acute (2) Acute alcohol intoxication: Qualifiers: Complication of substance-induced condition: uncomplicated Qualified Code(s): F10.920 - Alcohol use, unspecified with intoxication, uncomplicated Status: Acute (3) Alcohol use disorder: Status: Acute (4) Cardiomyopathy: Status: Acute (5) Thrombocytopenia: Status: Acute Plan EKG with atrial fibrillation rate of 115/Min. PVCs versus aberrant conduction. Nonspecific ST-T changes. Poor R-wave progression in anterior leads with nonspecific QRS widening. Based on [facility] from earlier this year, LVEF 10-15%. Labs reviewed. Platelet counts are low at 74 which is probably from alcohol excess. There were higher than that before. Alcohol level is 353 which is very high. High sensitivity troponins are borderline high at 56, 47 and 41. Cardiac BNP is 1634. Which is lower than prior levels when it has been as much as 3600. Overall, continued alcohol abuse, recurrent episodes of atrial fibrillation rapid rate, severe cardiomyopathy. Very high risk of decompensation, . This has been discussed numerous times. Again discussed that at length today. Unclear how much she understands as he states he does but then does not follow through. We will need to resume also medications. This includes amiodarone which is more for rate control in this case along with metoprolol and digoxin. With such high degree of noncompliance and continued alcohol abuse, difficult to really treat the underlying cardiac issues. Alcohol detoxification protocol. Will follow-up with you. Discussed with Dr. Roth. Procedures Date of Service Date of Service: 05/18/23
--- NOTE | 2023-05-18 09:41 | HO.PM.IMPN ---
Subjective Subjective Date of Service: 05/18/23 Interval History: sob, palpitations Physical Exam Vital Signs: Vital Signs: Last Vital Signs Temp 98.8 F 05/18/23 07:02 Pulse 114 H 05/18/23 07:02 Resp 20 05/18/23 07:02 BP 120/80 05/18/23 07:02 Pulse Ox 92 05/18/23 07:02 O2 Del Method Room Air 05/18/23 07:02 BMI result Body Mass Index 32.5 General: AO X 3, no acute distress Resp: CTA bilateral, no accessory muscles used CVS: S1,S2,rapid irregular GI: soft, non tender, non distended Neuro: motor grossly intact, alert Psych: appropriate affect, appropriate insight Objective Data Active Medications Acetaminophen (Acetaminophen 325 Mg Tablet) 650 mg PO Q6H PRN PRN Reason: Pain, Mild (Pain Scale 1-3) Amiodarone HCl (Amiodarone Hcl 200 Mg Tablet) 200 mg PO DAILY [facility]S [facility] Last Admin: 05/18/23 09:12 Dose: 200 mg Documented By: JUMANA Apixaban (Apixaban 5 Mg Tablet) 5 mg PO BID [facility] 234 BEDS AT [facility] Last Admin: 05/18/23 09:11 Dose: 5 mg Documented By: JUMANA Digoxin (Digoxin 0.125 Mg Tablet) 0.25 mg PO DAILY [facility] 234 BEDS AT [facility] Last Admin: 05/18/23 09:12 Dose: 0.25 mg Documented By: JUMANA Empagliflozin (Empagliflozin 10 Mg Tablet) 10 mg PO DAILY [facility] 234 BEDS AT [facility] Last Admin: 05/18/23 09:11 Dose: 10 mg Documented By: JUMANA Folic Acid (Folic Acid 1 Mg Tablet) 1 mg PO DAILY [facility]CLUDE 234 BEDS AT [facility] Last Admin: 05/18/23 09:12 Dose: 1 mg Documented By: JUMANA Furosemide (Furosemide 40 Mg Tablet) 80 mg PO DAILY [facility] 234 B[facility]S AT [facility]; Protocol Last Admin: 05/18/23 09:11 Dose: 80 mg Documented By: JUMANA Magnesium Oxide (Magnesium Oxide 400 Mg Tablet) 400 mg PO DAILY [facility] 234 BEDS AT [facility] Last Admin: 05/18/23 09:11 Dose: 400 mg Documented By: JUMANA Melatonin (Melatonin 3 Mg Tablet) 6 mg PO BEDTIME PRN PRN Reason: Insomnia Metoprolol Succinate (Metoprolol Succinate Er 50 Mg Tab.Er.24h) 50 mg PO DAILY [facility] 234 [facility]S [facility]; Protocol Last Admin: 05/18/23 09:12 Dose: 50 mg Documented By: JUMANA Ondansetron HCl (Ondansetron Hcl 4 Mg/2 Ml Vial) 4 mg IVPUSH Q8H PRN PRN Reason: Nausea and Vomiting Pharmacy Consult (Consult Rx Etoh Phenob Im/Po) 1 each MISCELLANE ONCE PRN; Protocol PRN Reason: Consult order Phenobarbital (Phenobarbital 15 Mg Tablet) 45 mg PO BID [facility] 234 [facility]S AT [facility]; Protocol Stop: 05/19/23 21:01 Last Admin: 05/18/23 09:11 Dose: 45 mg Documented By: JUMANA Phenobarbital (Phenobarbital 30 Mg Tablet) 30 mg PO BID [facility] 234 B[facility]S AT [facility]; Protocol Stop: 05/21/23 21:01 Phenobarbital (Phenobarbital 15 Mg Tablet) 15 mg PO DAILY [facility] 234 [facility]S AT [facility]; Protocol Stop: 05/23/23 09:01 Sodium Chloride (0.9 % Sodium Chloride Flush 3 Ml Syringe) 3 ml IVFLUSH QSHIFT COUNTS INCLUDE 234 BEDS AT [facility] Last Admin: 05/18/23 07:38 Dose: Not Given Documented By: JUMANA Non-Admin Reason: Previously Administered Thiamine HCl (Thiamine Hcl 100 Mg Tablet) 100 mg PO DAILY [facility] 234 BEDS AT [facility] Last Admin: 05/18/23 09:11 Dose: 100 mg Documented By: JUMANA Labs 05/18/23 07:12 05/18/23 07:12 Labs: Laboratory Results - last 24 hr 05/17/23 05/18/23 14:11 07:12 MCV 105.7 H 108.5 H MCH 36.0 H 36.9 H MCHC 34.1 34.0 RDW 16.5 H 16.4 H Plt Count 121 L 74 L D MPV 11.9 12.0 Immature Gran % (Auto) 0.3 0.3 Neut % (Auto) 70.5 73.4 H Lymph % (Auto) 16.9 L 12.3 L [place] % (Auto) 10.8 13.0 H Eos % (Auto) 0.8 0.7 Baso % (Auto) 0.7 0.3 Lymph # (Auto) 1.0 L 0.7 L [place] # (Auto) 0.6 0.8 Eos # (Auto) 0.1 0.0 Baso # (Auto) 0.0 0.0 Abs Immat Gran (auto) 0.02 0.02 Absolute Neuts (auto) 4.2 4.3 Absolute Nucleated RBC 0.000 0.000 Nucleated RBC % (auto) 0.0 0.0 PT 13.3 D INR 1.1 APTT 31.7 Anion Gap 19 15 Estim Creat Clear Calc 94.9 120.7 Estimated GFR > 60 > 60 Random Glucose 133 H 138 H Calcium 8.8 8.3 L Total Bilirubin 2.1 H AST 80 H ALT 48 H Alkaline Phosphatase 145 H B-Natriuretic Peptide 1634 H Total Protein 7.3 Albumin 3.9 Lipase 16 TSH 3.63 Ethyl Alcohol 353 H* Assessment and Plan (1) Alcohol use disorder: Status: Acute Plan 57M PMH etoh dependence, AFLD, hfref, htn, chronic afib, presented with sob and palpitations. Chronic atrial fibrillation with rapid ventricular response Continue amiodarone, digoxin, metoprolol Eliquis Chronic systolic CHF Continue Lasix, metoprolol, Jardiance Will hold losartan and Aldactone to make room for increased metoprolol if needed for rate control Alcohol dependence with withdrawal Phenobarb CIWA Alcoholic fatty liver disease with thrombocytopenia Abstinence recommended DVT prophylaxis with Eliquis Full code reason for continued hospitalization: Rate uncontrolled Quality Stroke Does the patient have a stroke diagnosis?: No VTE Prior VTE?: No VTE Risk Level:: Medical - moderate - high VTE Device Contraindication: Treatment Not Indicated VTE Drug Contraindication: N/A - Med Ordered
[2023-05-18 10:01] LABS: Magnesium 1.3 mg/dL (1.6-2.6)
--- NOTE | 2023-05-18 10:16 | MHC.CM.PN ---
EMR REVIEWED, CM MET W/PT WHO HAS BEEN ADMITTED W/AFIB W/RVR, PT REPORTS HE STILL LIVES ALONE, IS INDEP W/ALL CARE, DRIVES, NO DME/SERVICES. CM DISCUSSED ETOH W/PT WHO REPORTS HE WAS NOT SEC 35'D AFTER HE WAS DISCHARGED LAST MONTH, PT REPORTS HE WAS TOLD THE PD WAS GOING TO COME TAKE HIM AWAY FOR SEC HOWEVER THEY MUST HAVE DROPPED THE BALL BECAUSE THEY NEVER SHOWED UP. PT ALSO IS CURRENTLY DECLINING RECOVERY TEAM AND STATES, I DON'T WANT YOU TO HARP ON THAT PT REPORTS HE IS STILL LOOKING FOR A NEW JOB AND REPORTS IF HE WASN'T HAVING THESE CARDIAC ISSUES, PT DISCHARGED W/SAME ISSUE 04/22 AND REPORTS HE RETURNED TO ED BECAUSE HIS HEART WAS RACING. PCP/HCP ON FILE VERIFIED AND CORRECT. [facility] W/CM ARRANGING [facility] SHUTTLE FOR TRANSPORT
[2023-05-18] MEDS: Magnesium Sulfate/H2O 2 GM/50 ML PIGGYBACK IV (11:23)
[2023-05-18 11:55] LABS: Appearance Urine Clear; Color Urine Dark Yellow; Glucose Urine UA 250 mg/dL (Negative); Leukocyte Esterase Urine Negative (Negative); Nitrite Urine Negative (Negative); PH 5.5 (5.0-9.0); Specific Gravity - Urine 1.015 (1.005-1.025); UMIC TRIGGER UACC YES; Urine Blood Negative (Negative); Urine Ketones Negative (Negative); Urine Protein 30 (1+) mg/dL (Neg-Trace)
[2023-05-18 12:01] LABS: Bacteria Urine None Seen (None Seen); Hyaline Casts Urine 0-2 /LPF (0-2); RBC Urine 0-2 /HPF (0-2); Squamous Epithelial Cell Urine 0-2 /HPF (0-2); WBC Urine 0-5 /HPF (0-5)
--- NOTE | 2023-05-18 12:09 | MHC.RECOVRN ---
Met with pt in 469 after Addiction Medicine consult received for AUD. Pt had presented to the ED with SOB afib rvr- 22ml dilt given for HR 170 non compliant w/ digoxin and metoprolol. Drank 1/2 handle vodka prior to EMS arrival. Upon evaluation, pt admitted for Afib with RVR and AUD/tx of withdrawal. Pt sitting in bed, awake, alert, easily engages in conversation, familiar with t/w from previous consults. Pt reports after last admission his sisters were attempting a Sect [employer], however, the ball was dropped somewhere. Pt reports alcohol use, a couple drinks a couple times a week. Pt dismissive over concerns regarding alcohol use and health, states The doctor asked me what is more important right now, my life or my job. Right now I would say my job. Pt continues to report he was laid off from most recent employment a little while ago and is not currently working but aggressively looking. Pt does report taking his medications daily, 9 in the morning and 3 at night, I have a pill box. Pt does report interest in decreasing alcohol use. Discussed support options, pt interested in IOP. Pt provided with [facility] [place]-[facility] has evening program if pt is working during the day. Pt provided with other information including dangers of mixing alcohol with medications, harm reduction, [facility] [place], and recovery coaching. Pt had met with monomer recovery operator last night who also provided resources. Pt denies questions or concerns for t/w.
[2023-05-18 12:36] LABS: Amphetamine Screen Urine Not Detected (Not Detect); Barbiturates, Urine POSITIVE (Not Detect); Benzodiazepines Screen Urine Not Detected (Not Detect); Cannabinoid Screen Urine Not Detected (Not Detect); Cocaine Screen Urine Not Detected (Not Detect); Fentanyl, urine Not Detected (Not Detect); Opiate Screen Urine Not Detected (Not Detect); Phencyclidine Screen Urine Not Detected (Not Detect)
[2023-05-18] MEDS: 0.9 % Sodium Chloride Flush 3 ML SYRINGE IVFLUSH (20:57)
[2023-05-19] MEDS: Melatonin 3 MG TABLET 6 MG PO ×2 (01:42→21:01)
[2023-05-19 03:52] VITALS: BP 113/72; PULSE 98; RESP 20; TEMP 37.2; O2SAT 96
[2023-05-19 07:25] VITALS: BP 120/80; PULSE 114; RESP 20; TEMP 36.8; O2SAT 95
[2023-05-19] MEDS: PHENobarbitaL 15 MG TABLET 45 MG PO ×2 (07:53→20:52)
[2023-05-19] MEDS: Digoxin 0.125 MG TABLET 0.25 MG PO (07:54)
[2023-05-19] MEDS: Metoprolol Succinate ER 50 MG TAB.ER.24H PO (07:54)
[2023-05-19] MEDS: Empagliflozin 10 MG TABLET PO (07:54)
[2023-05-19] MEDS: Folic Acid 1 MG TABLET PO (07:54)
[2023-05-19] MEDS: Magnesium Oxide 400 MG TABLET PO (07:54)
[2023-05-19] MEDS: Amiodarone HCL 200 MG TABLET PO (07:55)
[2023-05-19] MEDS: Furosemide 40 MG TABLET 80 MG PO (07:55)
[2023-05-19] MEDS: Apixaban 5 MG TABLET PO ×2 (07:55→20:52)
[2023-05-19] MEDS: Thiamine HCL 100 MG TABLET PO (07:55)
--- NOTE | 2023-05-19 09:02 | PM.PNCARD ---
Subjective Subjective Date of Service: 05/19/23 Interval history: Patient states that he is doing okay. He does not really have any specific symptoms. He is eating his breakfast and resting in bed. Review of Systems Review of Systems Yes all other systems are reviewed and are negative Constitutional: Reports as per HPI and Reports no additional constitutional complaints Eyes: Reports as per HPI and Denies no additional eye complaints Denies system reviewed and no additional complaints, except as documented and Reports as per HPI Cardiovascular: Reports as per HPI, Reports no additional cardiovascular complaints, Denies acrocyanosis, Denies cool extremities, Denies chest pain, Denies leg edema, Denies lightheadedness, Denies palpitations and Denies dyspnea Respiratory: Reports as per HPI, Denies no additional respiratory complaints and Denies dyspnea Gastrointestinal: Reports as per HPI and Denies no additional gastrointestinal complaints Genitourinary: Reports no additional male genitourinary complaints and Reports as per HPI Musculoskeletal: Reports no additional musculoskeletal complaints and Reports as per HPI Skin/Breast: Reports system reviewed and no additional complaints, except as docu Reports system reviewed and no additional complaints, except as documented and Reports as per HPI Psychiatric: Reports no additional psychiatric complaints and Reports as per HPI Endocrine: Reports no additional endocrine complaints, Reports as per HPI and Denies palpitations Hematologic/Lymphatic: Reports no additional hematologic/lymphatic complaints and Reports as per HPI Allergic/Immunologic: Reports no additional allergic/immunologic complaints and Reports as per HPI Physical Exam Vital Signs: Last Vital Signs Temp 98.2 F 05/19/23 07:25 Pulse 114 H 05/19/23 07:25 Resp 20 05/19/23 07:25 BP 120/80 05/19/23 07:25 Pulse Ox 95 05/19/23 07:25 O2 Del Method Room Air 05/19/23 07:25 BMI result Body Mass Index 32.5 Const General: comfortable and no acute distress Orientation/consciousness: patient oriented x3 HEENT Other: Unremarkable Head: Yes normal to inspection Neck Neck: Yes normal visual inspection Chest Chest palpation & inspection: normal inspection of the chest Resp Auscultation: clear to auscultation bilaterally Cardio Palpation: normal PMI Heart sounds: S1 normal heart sound present, S2 normal heart sound present, no gallops, no murmurs and no rubs GI Palpation (GI): Soft to palpation Back/Spine/Pelvis Other: unremarkable Skin General skin exam: no rashes or lesions noted Neuro General: patient oriented x3 Extrem General: Yes normal to inspection Psych Mental Status: mental status grossly normal Objective Labs and Meds 05/18/23 07:12 05/18/23 07:12 Lab results: Laboratory Results - last 24 hr 05/17/23 05/18/23 05/18/23 11:30 07:12 11:30 Magnesium 1.3 L* Urine Color Dark Yellow Urine Appearance Clear Urine pH 5.5 Ur Specific [place] 1.015 Urine Protein 30 (1+) H Urine Glucose (UA) 250 H Urine Ketones Negative Urine Blood Negative Urine Nitrite Negative Ur Leukocyte Esterase Negative Urine RBC 0-2 Urine WBC 0-5 Ur Squamous Epith Cells 0-2 Urine Bacteria None Seen Hyaline Casts 0-2 Urine Opiates Screen Not Detected Urine Fentanyl Screen Not Detected Ur Barbiturates Screen POSITIVE H Ur Phencyclidine Scrn Not Detected Ur Amphetamines Screen Not Detected U Benzodiazepines Scrn Not Detected Urine Cocaine Screen Not Detected U Marijuana (THC) Screen Not Detected Progress Note: A&P Assessment and plan (1) Atrial fibrillation with rapid ventricular response: Status: Acute (2) Acute alcohol intoxication: Status: Acute (3) Alcohol use disorder: Status: Acute (4) Cardiomyopathy: Status: Acute (5) Thrombocytopenia: Status: Acute Plan On telemetry, continues to be in atrial fibrillation with rapid rate. Rates in the 110s-120s. Current listed meds include amiodarone 200 mg daily, Toprol-XL 50 mg daily and digoxin 250 mcg daily. He is getting them here but unknown home compliance-but per patient he does take him, question reliability. Main provoking factor for his atrial fibrillation episodes is alcohol which she fails to understand. Any case, he has severe cardiomyopathy with an ejection fraction of 10-20% range. Somewhat of a difficult situation. Will discuss with EP at [facility] regarding suitability for AV node ablation and Bi V ICD placement. That will at least prevent future admissions for atrial fibrillation with rapid rates. Platelet count was slightly low as today at 74. Could be related to alcohol. Will need follow-up. Time Spent With Patient Time: Total time managing care of this patient today ____ minutes. Progress Note: Quality Stroke Does the patient have a stroke diagnosis?: No Procedures Date of Service Date of Service: 05/19/23
[2023-05-19 09:11] LABS: Hematocrit 34.5 % (42.0-52.0); Hemoglobin 11.5 g/dl (14.0-18.0); Mean Corpuscular HGB Conc 33.3 g/dl (31.0-36.0); Mean Corpuscular Hemoglobin 35.7 pg (27.0-33.0); Mean Corpuscular Volume 107.1 fL (80.0-98.0); Mean Platelet Volume 12.2 fL (9.4-12.4); Platelet Count 77 X10*3/uL (160-400); Red Blood Count 3.22 X10*6/uL (4.60-5.80); Red Cell Distribution Width 16.2 % (11.0-16.0); White Blood Count 5.8 X10*3/uL (4.8-10.8)
[2023-05-19 10:02] LABS: Anion Gap 13 (12-20); Blood Urea Nitrogen 9 mg/dL (9-16); Calcium 8.2 mg/dL (8.4-10.2); Carbon Dioxide 28 mmol/L (22-29); Chloride 98 mmol/L (96-108); Creatinine Clr Calc Pharmacy 113.9; Estimated Glomerular Filt Rate > 60; Glucose Fasting 141 mg/dL (60-99); Magnesium 1.3 mg/dL (1.6-2.6); Potassium 2.9 mmol/L (3.3-5.1); Sodium 136 mmol/L (135-145)
--- NOTE | 2023-05-19 10:43 | MHC.CM.PN ---
EMR reviewed and per MD rounds, pt is not medically cleared for D/C due to management of A-fib with rapid rate. CM will continue to follow.
[2023-05-19 10:58] VITALS: BP 116/66; PULSE 82; RESP 20; TEMP 36.7; O2SAT 97
[2023-05-19] MEDS: Potassium Chloride Packet 20 MEQ PACKET 40 MEQ PO ×2 (11:39→14:53)
[2023-05-19] MEDS: Magnesium Sulfate/H2O 2 GM/50 ML PIGGYBACK IV (11:40)
[2023-05-19] MEDS: 0.9 % Sodium Chloride Flush 3 ML SYRINGE IVFLUSH ×2 (14:54→20:52)
[2023-05-19 15:22] VITALS: BP 100/70; PULSE 108; RESP 16; TEMP 36.6; O2SAT 98
--- NOTE | 2023-05-19 15:22 | P.PNIM_ITS ---
Subjective Subjective Date of Service: 05/19/23 Interval History: Seen and evaluated this morning TRachycardic up to 150s No chest pain or SOB withdrawal under fair control Review of Systems Review of Systems: Yes all other systems are reviewed and are negative Physical Exam 2 Vital Signs: Vital Signs: Last Vital Signs Temp 98.1 F 05/19/23 10:58 Pulse 82 05/19/23 10:58 Resp 20 05/19/23 10:58 BP 116/66 05/19/23 10:58 Pulse Ox 97 05/19/23 10:58 O2 Del Method Room Air 05/19/23 10:58 BMI result Body Mass Index 32.5 Const: Other: Constitutional : Awake, interactive, not in distress Neck : Normal inspection, Supple Cardiovascular : irregular irregular , no JVP, no lower extremity edema Respiratory : good bilateral air entry, no crackles, wheezes or rhonchi Gastrointestinal: soft, lax, Normal bowel sounds, Non tender Skin : Warm, Dry Neurological : Alert & oriented x3, No focal deficit Objective Data Active Medications Acetaminophen (Acetaminophen 325 Mg Tablet) 650 mg PO Q6H PRN PRN Reason: Pain, Mild (Pain Scale 1-3) Amiodarone HCl (Amiodarone Hcl 200 Mg Tablet) 200 mg PO DAILY [facility] Last Admin: 05/19/23 07:55 Dose: 200 mg Documented By: VIVEK Apixaban (Apixaban 5 Mg Tablet) 5 mg PO BID [facility] Last Admin: 05/19/23 07:55 Dose: 5 mg Documented By: VIVEK Digoxin (Digoxin 0.125 Mg Tablet) 0.25 mg PO DAILY [facility] Last Admin: 05/19/23 07:54 Dose: 0.25 mg Documented By: VIVEK Empagliflozin (Empagliflozin 10 Mg Tablet) 10 mg PO DAILY [facility] Last Admin: 05/19/23 07:54 Dose: 10 mg Documented By: VIVEK Folic Acid (Folic Acid 1 Mg Tablet) 1 mg PO DAILY [facility] Last Admin: 05/19/23 07:54 Dose: 1 mg Documented By: VIVEK Furosemide (Furosemide 40 Mg Tablet) 80 mg PO DAILY [facility]; Protocol Last Admin: 05/19/23 07:55 Dose: 80 mg Documented By: VIVEK Magnesium Oxide (Magnesium Oxide 400 Mg Tablet) 400 mg PO DAILY [facility] Last Admin: 05/19/23 07:54 Dose: 400 mg Documented By: VIVEK Melatonin (Melatonin 3 Mg Tablet) 6 mg PO BEDTIME PRN PRN Reason: Insomnia Last Admin: 05/19/23 01:42 Dose: 6 mg Documented By: INA Metoprolol Succinate (Metoprolol Succinate Er 50 Mg Tab.Er.24h) 50 mg PO DAILY [facility]; Protocol Last Admin: 05/19/23 07:54 Dose: 50 mg Documented By: VIVEK Ondansetron HCl (Ondansetron Hcl 4 Mg/2 Ml Vial) 4 mg IVPUSH Q8H PRN PRN Reason: Nausea and Vomiting Pharmacy Consult (Consult Rx Etoh Phenob Im/Po) 1 each MISCELLANE ONCE PRN; Protocol PRN Reason: Consult order Phenobarbital (Phenobarbital 15 Mg Tablet) 45 mg PO BID [facility]; Protocol Stop: 05/19/23 21:01 Last Admin: 05/19/23 07:53 Dose: 45 mg Documented By: VIVEK Phenobarbital (Phenobarbital 30 Mg Tablet) 30 mg PO BID [facility]; Protocol Stop: 05/21/23 21:01 Phenobarbital (Phenobarbital 15 Mg Tablet) 15 mg PO DAILY [facility]; Protocol Stop: 05/23/23 09:01 Sodium Chloride (0.9 % Sodium Chloride Flush 3 Ml Syringe) 3 [facility] Last Admin: 05/19/23 14:54 Dose: 3 ml Documented By: VIVEK Thiamine HCl (Thiamine Hcl 100 Mg Tablet) 100 mg PO DAILY [facility] Last Admin: 05/19/23 07:55 Dose: 100 mg Documented By: VIVEK Labs 05/19/23 08:34 05/19/23 08:34 Labs: Laboratory Results - last 24 hr 05/19/23 08:34 MCV 107.1 H MCH 35.7 H MCHC 33.3 RDW 16.2 H Plt Count 77 L MPV 12.2 Absolute Nucleated RBC 0.000 Nucleated RBC % (auto) 0.0 Anion Gap 13 Estim Creat Clear Calc 113.9 Estimated GFR > 60 Fasting Glucose 141 H Calcium 8.2 L Magnesium 1.3 L* Assessment and Plan (1) Thrombocytopenia: Status: Acute (2) Acute alcohol intoxication: Status: Acute (3) Atrial fibrillation with rapid ventricular response: Status: Acute Plan 57M PMH etoh dependence, AFLD, hfref, htn, chronic afib, presented with sob and palpitations. Chronic atrial fibrillation with rapid ventricular response rate better controlled Continue amiodarone, digoxin, metoprolol Cardiology input appreciated: discuss with EP at [facility] regarding suitability for AV node ablation and Bi V ICD placement Eliquis Chronic systolic CHF severe cardiomyopathy with an ejection fraction of 10-20% range. Will hold losartan and Aldactone to make room for increased metoprolol if needed for rate control Continue Lasix, metoprolol, Jardiance Alcohol dependence with withdrawal Phenobarb CIWA Alcoholic fatty liver disease with thrombocytopenia Abstinence recommended DVT prophylaxis with Eliquis Full code reason for continued hospitalization: Rate uncontrolled Quality Stroke Does the patient have a stroke diagnosis?: No VTE Prior VTE?: No VTE Risk Level:: Medical - moderate - high VTE Device Contraindication: Treatment Not Indicated VTE Drug Contraindication: N/A - Med Ordered
--- NOTE | 2023-05-19 16:58 | P.EN_ITS ---
Event Note Date of Service: 05/19/23 Event Note: Addiction consult placed for patient with AUD Seen by both press tender short goods and motor coach driver. Pre contemplation stage of change. Resources provided. No follow up inidicated unless patient requests Time Spent With Patient Time: Total time managing care of this patient today ____ minutes.
[2023-05-19 18:57] VITALS: BP 97/63; PULSE 102; RESP 16; TEMP 36.9; O2SAT 97
[2023-05-19 23:19] VITALS: BP 93/60; PULSE 120; RESP 19; TEMP 37.1; O2SAT 98
[2023-05-20 03:57] VITALS: BP 101/76; PULSE 120; RESP 19; TEMP 37.2; O2SAT 98
[2023-05-20 06:46] LABS: Anion Gap 12 (12-20); Blood Urea Nitrogen 14 mg/dL (9-16); Calcium 8.3 mg/dL (8.4-10.2); Carbon Dioxide 26 mmol/L (22-29); Chloride 96 mmol/L (96-108); Creatinine Clr Calc Pharmacy 101.2; Estimated Glomerular Filt Rate > 60; Glucose Random 129 mg/dL (60-115); Magnesium 1.6 mg/dL (1.6-2.6); Potassium 3.3 mmol/L (3.3-5.1); Sodium 131 mmol/L (135-145)
[2023-05-20 07:04] VITALS: BP 165/75; PULSE 95; RESP 20; TEMP 36.2; O2SAT 97
[2023-05-20] MEDS: Magnesium Oxide 400 MG TABLET PO (08:31)
[2023-05-20] MEDS: Folic Acid 1 MG TABLET PO (08:31)
[2023-05-20] MEDS: Digoxin 0.125 MG TABLET 0.25 MG PO (08:32)
[2023-05-20] MEDS: Amiodarone HCL 200 MG TABLET PO (08:32)
[2023-05-20] MEDS: Metoprolol Succinate ER 25 MG TAB.ER.24H 75 MG PO (08:32)
[2023-05-20] MEDS: Thiamine HCL 100 MG TABLET PO (08:32)
[2023-05-20] MEDS: Apixaban 5 MG TABLET PO (08:32)
[2023-05-20] MEDS: Furosemide 40 MG TABLET 80 MG PO (08:32)
[2023-05-20] MEDS: 0.9 % Sodium Chloride Flush 3 ML SYRINGE IVFLUSH (08:33)
[2023-05-20] MEDS: Empagliflozin 10 MG TABLET PO (08:33)
[2023-05-20] MEDS: PHENobarbitaL 30 MG TABLET PO (08:33)
--- NOTE | 2023-05-20 10:39 | MHC.CM.PN ---
Pt left AMA.
--- NOTE | 2023-05-20 10:41 | PM.PNCARD ---
Subjective Subjective Date of Service: 05/20/23 Interval history: Patient seen around 09:00. He states he is feeling fine. Heart rate is improved significantly. Review of Systems Review of Systems Yes all other systems are reviewed and are negative Constitutional: Reports as per HPI and Reports no additional constitutional complaints Eyes: Reports as per HPI and Denies no additional eye complaints Denies system reviewed and no additional complaints, except as documented and Reports as per HPI Cardiovascular: Reports as per HPI, Reports no additional cardiovascular complaints, Denies acrocyanosis, Denies cool extremities, Denies chest pain, Denies leg edema, Denies lightheadedness, Denies palpitations and Denies dyspnea Respiratory: Reports as per HPI, Denies no additional respiratory complaints and Denies dyspnea Gastrointestinal: Reports as per HPI and Denies no additional gastrointestinal complaints Genitourinary: Reports no additional male genitourinary complaints and Reports as per HPI Musculoskeletal: Reports no additional musculoskeletal complaints and Reports as per HPI Skin/Breast: Reports system reviewed and no additional complaints, except as docu Reports system reviewed and no additional complaints, except as documented and Reports as per HPI Psychiatric: Reports no additional psychiatric complaints and Reports as per HPI Endocrine: Reports no additional endocrine complaints, Reports as per HPI and Denies palpitations Hematologic/Lymphatic: Reports no additional hematologic/lymphatic complaints and Reports as per HPI Allergic/Immunologic: Reports no additional allergic/immunologic complaints and Reports as per HPI Physical Exam Vital Signs: Last Vital Signs Temp 97.1 F 05/20/23 07:04 Pulse 95 05/20/23 07:04 Resp 20 05/20/23 07:04 BP 165/75 H 05/20/23 07:04 Pulse Ox 97 05/20/23 07:04 O2 Del Method Room Air 05/20/23 07:04 BMI result Body Mass Index 32.5 Const General: comfortable and no acute distress Orientation/consciousness: patient oriented x3 HEENT Other: Unremarkable Head: Yes normal to inspection Neck Neck: Yes normal visual inspection Chest Chest palpation & inspection: normal inspection of the chest Resp Auscultation: clear to auscultation bilaterally Cardio Palpation: normal PMI Heart sounds: S1 normal heart sound present, S2 normal heart sound present, no gallops, no murmurs and no rubs GI Palpation (GI): Soft to palpation Back/Spine/Pelvis Other: unremarkable Skin General skin exam: no rashes or lesions noted Neuro General: patient oriented x3 Extrem General: Yes normal to inspection Psych Mental Status: mental status grossly normal Objective Labs and Meds 05/19/23 08:34 05/20/23 06:07 Lab results: Laboratory Results - last 24 hr 05/20/23 06:07 Hold Purple Top SEE NOTE Sodium 131 L Potassium 3.3 Chloride 96 Carbon Dioxide 26 Anion Gap 12 BUN 14 Creatinine 0.99 Estim Creat Clear Calc 101.2 Estimated GFR > 60 Random Glucose 129 H Calcium 8.3 L Magnesium 1.6 Progress Note: A&P Assessment and plan (1) Atrial fibrillation with rapid ventricular response: Status: Acute (2) Acute alcohol intoxication: Status: Acute (3) Alcohol use disorder: Status: Acute (4) Cardiomyopathy: Status: Acute Plan On telemetry, atrial fibrillation rate is about 100/Min. He states he is feeling fine. Not showing signs of alcohol intoxication or withdrawal at this time. For medications, he is on amiodarone, metoprolol and digoxin and he has failed rhythm control and cardioversion in the past. Alcohol use is still the main issue. This has been counseled numerous times including today. Echocardiogram with severe cardiomyopathy with an ejection fraction in the 10-20% range. He also runs low blood pressures and hence there is not much of room for guideline based medical therapy and there is also an issue of noncompliance. Discussed with Dr. Shelley from [facility]. Regarding candidacy for AV node ablation/BiV ICD. He will evaluate him as an outpatient for the same. He will call for appointment. Discussed with patient about this. Discussed with Dr. Ordonez. Time Spent With Patient Time: Total time managing care of this patient today 40 minutes. This includes time spent in review of chart, laboratory data, imaging studies, review of telemetry, counseling patient, discussion with hospitalist, RN, documentation, coordination of care. Progress Note: Quality Stroke Does the patient have a stroke diagnosis?: No Procedures Date of Service Date of Service: 05/20/23
--- NOTE | 2023-05-20 10:55 | P.DS_ITS ---
DS: Providers Provider Date of Service: 05/20/23 Date of admission: 05/17/23 19:31 Primary care physician: Jerri Bennett MD Consults: 05/17/23 19:35 Consult to Cardiology Routine Consulting Provider: [facility] Reason for consultation: afib with rvr Has provider been notified: Yes 05/17/23 19:52 Addiction Medicine Routine Consulting Provider: Addiction Covering Reason for consultation: alcohol use disorder DS: Diagnosis Discharge Diagnosis (1) Atrial fibrillation with rapid ventricular response: Status: Acute (2) Acute alcohol intoxication: Status: Acute (3) Cardiomyopathy: Status: Acute (4) Thrombocytopenia: Status: Acute (5) Alcohol dependence with withdrawal: Status: Acute DS: Summary Hospital Course Hospital Course: Admission note HPI This is a 57-year-old male with pertinent history of atrial fibrillation on anticoagulation, congestive heart failure with reduced ejection fraction, alcohol use disorder, essential hypertension who presents to the emergency department for evaluation of palpitations and dyspnea. Patient states he was drinking vodka on the day of presentation when he had a feeling of his heart racing too fast. He also felt lightheaded and was dyspneic. No orthopnea or PND. Patient admits that he is not compliant with his p.o. medications. No more chills, chest discomfort, abdominal pain, changes in urinary or bowel habits. In the emergency department, patient was found to be in AFib with RVR and initiated on IV diltiazem drip Hospital course The patient was admitted and treated for AFib w RvR with IV Cardizem drip and cardiology evaluation with fair response but continued to run 90-100 at rest and up to 140s with exertion. Cardiology suggested transfer for EP study and possible AV ablation and placement of PPM but the patient did not want to wait and decided to leave AMA. Was treated for Alcohol dependence and withdrawal with Phenobarbital with good response. advised complete abstinence from alcohol. . Time Attestation Discharge coordination time: Greater than 30 minutes Quality: Safe Use of Opioids Does Pt have an Active Cancer Diagnosis on the Problem List?: No Quality: Stroke Does the patient have a stroke diagnosis?: No Physical Exam Vital Signs: Vital Signs: Last Vital Signs Temp 97.1 F 05/20/23 07:04 Pulse 95 05/20/23 07:04 Resp 20 05/20/23 07:04 BP 165/75 H 05/20/23 07:04 Pulse Ox 97 05/20/23 07:04 O2 Del Method Room Air 05/20/23 07:04 BMI result Body Mass Index 32.5 Const: Other: Constitutional : Awake, interactive, not in distress Neck : Normal inspection, Supple Cardiovascular : irregular irregular , no JVP, no lower extremity edema Respiratory : good bilateral air entry, no crackles, wheezes or rhonchi Gastrointestinal: soft, lax, Normal bowel sounds, Non tender Skin : Warm, Dry Neurological : Alert & oriented x3, No focal deficit DS: Data Data Completed and Pending Completed studies during hospitalization [Text1]: Procedures Assistance with Respiratory Ventilation, Less than 24 Consecutive Hours, Continuous Positive Airway Pressure (12/22/22) Detoxification Services for Substance Abuse Treatment (04/20/23) Insertion of Endotracheal Airway into Trachea, Via Natural or Artificial Opening (11/11/21) Respiratory Ventilation, 24-96 Consecutive Hours (11/11/21) Evangelical of Cardiac Rhythm, Single (11/11/21) Labs on day of discharge: Laboratory Results - last 24 hr 05/20/23 06:07 Hold Purple Top SEE NOTE Sodium 131 L Potassium 3.3 Chloride 96 Carbon Dioxide 26 Anion Gap 12 BUN 14 Creatinine 0.99 Estim Creat Clear Calc 101.2 Estimated GFR > 60 Random Glucose 129 H Calcium 8.3 L Magnesium 1.6 Imaging Chest x-ray: Radiologist's impression: ITS Impressions Chest X-Ray 05/17/23 14:24 IMPRESSION: Stable enlargement of the cardiac silhouette. Probable small left pleural effusion. No CHF or pneumonia. Discharge Plan Discharge Patient Disposition: Left Against Medical Advice Discharge Diagnosis: Afib rvr Alcohol withdrawal Discharge Medications: No Action amiodarone 200 mg tablet 200 mg PO DAILY 90 Days Qty: 90 1RF Eliquis 5 mg tablet 5 mg PO BID Qty: 180 1RF Jardiance 10 mg tablet 10 mg PO DAILY Qty: 30 1RF furosemide 40 mg tablet 80 mg PO DAILY 30 Days Qty: 60 1RF Protocol: Hold for SBP< HOLD for SBP < : 90 Rx Instructions: OVERDUE FOR APPT. PLEASE CALL [phone] TO SCHEDULE FOLLOW UP SO WE CAN CONTINUE REFILLING YOUR MEDICATIONS. losartan 25 mg tablet 25 mg PO Q OTHER DAY 30 Days Qty: 15 1RF Hold Instructions: Resume on 08/29/23. hold until seen by pcp Rx Instructions: OVERDUE FOR APPT. PLEASE CALL [phone] TO SCHEDULE FOLLOW UP SO WE CAN CONTINUE REFILLING YOUR MEDICATIONS. folic acid 1 mg tablet 1 mg PO DAILY Qty: 90 1RF Rx Instructions: OVERDUE FOR APPT. PLEASE CALL [phone] TO SCHEDULE FOLLOW UP SO WE CAN CONTINUE REFILLING YOUR MEDICATIONS. spironolactone 25 mg tablet 25 mg PO DAILY Qty: 90 0RF Rx Instructions: OVERDUE FOR APPT. PLEASE CALL [phone] TO SCHEDULE FOLLOW UP SO WE CAN CONTINUE REFILLING YOUR MEDICATIONS. metoprolol succinate 50 mg Tablet Extended Release 24 Hr 50 mg PO DAILY Qty: 90 0RF Protocol: Hold for SBP/HR < HOLD for SBP < : 90 HOLD for HR < : 60 magnesium oxide 400 mg (241.3 mg magnesium) Tablet 400 mg PO DAILY Qty: 90 0RF digoxin 125 mcg (0.125 mg) Tablet 0.25 mg PO DAILY Qty: 60 0RF thiamine mononitrate (vit B1) [Vitamin B-1 (mononitrate)] 100 mg tablet 100 mg PO DAILY Discharge Orders: Discharge Order (Routine); Ordered 05/20/23 Ordered By: Titus Ordonez Care Plan Goals: . Health Concerns: . Plan of Treatment: . Assessment: . Discharge Date/Time: 05/20/23 09:41
== END 2023-05-20 09:41 | disposition left against medical advice (07) | DRG 201 ==
LOC: HO.ED 18:18 → HO.EDOVER 19:43 → HO.IMC 23:24
PROVIDERS: Internal Medicine; Admitting Provider Student in an Organized Health Care Education/Training Program; Emergency Provider Emergency Medicine Emergency Medical Services; PCP Internal Medicine; Visit Provider Student in an Organized Health Care Education/Training Program
DX: I48.20 Chronic atrial fibrillation, unspecified (principal); I42.9 Cardiomyopathy, unspecified; D69.59 Other secondary thrombocytopenia; I50.22 Chronic systolic (congestive) heart failure; I11.0 Hypertensive heart disease with heart failure; K70.0 Alcoholic fatty liver; F10.229 Alcohol dependence with intoxication, unspecified; Z91.148 Patient's other noncompliance with medication regimen for other reason; F10.239 Alcohol dependence with withdrawal, unspecified; Y90.8 Blood alcohol level of 240 mg/100 ml or more; Z86.711 Personal history of pulmonary embolism; Z79.01 Long term (current) use of anticoagulants; Z79.899 Other long term (current) drug therapy
CPT/HCPCS: 36415; 71045; 80048; 80053; 80307; 81001; 83690; 83735; 83880; 84443; 84484; 85025; 85027; 85610; 85730; 93005; 93306; 99285; J1650; J1940; J2060; J2560; J3475; J3480; Q9957

== ENCOUNTER 2023-05-17 19:31 | Outpatient (BNV) | payer OTHER, SELFPAY | END 2023-05-18 07:00 | PROVIDERS: Admitting Provider Student in an Organized Health Care Education/Training Program; Emergency Provider Emergency Medicine Emergency Medical Services; PCP Internal Medicine; Visit Provider Internal Medicine | DX: I48.91 Unspecified atrial fibrillation (principal); I42.9 Cardiomyopathy, unspecified | CPT/HCPCS: 93306 ==

== ENCOUNTER → 2023-05-17 19:31 | Outpatient (BNV) | payer OTHER, SELFPAY | PROVIDERS: Admitting Provider Student in an Organized Health Care Education/Training Program; Emergency Provider Emergency Medicine Emergency Medical Services; PCP Internal Medicine; Visit Provider Student in an Organized Health Care Education/Training Program | DX: I48.91 Unspecified atrial fibrillation (principal); I42.9 Cardiomyopathy, unspecified; D69.6 Thrombocytopenia, unspecified; F10.239 Alcohol dependence with withdrawal, unspecified | CPT/HCPCS: 99222; 99233; 99239 ==

== ENCOUNTER → 2023-05-17 19:31 | Outpatient (BNV) | payer OTHER, SELFPAY | PROVIDERS: Admitting Provider Student in an Organized Health Care Education/Training Program; Emergency Provider Emergency Medicine Emergency Medical Services; PCP Internal Medicine; Visit Provider Internal Medicine | DX: I48.91 Unspecified atrial fibrillation (principal); F10.920 Alcohol use, unspecified with intoxication, uncomplicated; F10.90 Alcohol use, unspecified, uncomplicated; I42.9 Cardiomyopathy, unspecified | CPT/HCPCS: 99223; 99233 ==

== ENCOUNTER 2023-05-23 00:57 | Emergency (ER) | payer OTHER, SELFPAY ==
--- NOTE | 2023-05-23 | ECG_ITS ---
Test Reason : AFIB Blood Pressure : / mmHG Vent. Rate : 118 BPM Atrial Rate : 000 BPM P-R Int : 000 ms QRS Dur : 108 ms QT Int : 338 ms P-R-T Axes : 000 021 233 degrees QTc Int : 473 ms Atrial fibrillation with rapid ventricular response with premature ventricular or aberrantly conducted complexes Nonspecific ST abnormality Abnormal ECG When compared with ECG of 17-MAY-2023 13:54, ST more depressed Lateral leads Referred By: Generic ED Physician Electronically Signed By:KASEY MONTELONGO MD
[2023-05-23 01:05] VITALS: BP 128/80; PULSE 60; O2SAT 99; BMI 29.9
[2023-05-23 01:22] VITALS: BP 110/80; PULSE 115; RESP 19; TEMP 36.8; O2SAT 99
[2023-05-23 01:27] LABS: MANUAL DIFF FLAG NO
[2023-05-23 01:31] LABS: Basophils Percent Auto 0.8 % (0-2); Eosinophils Absolute Auto 0.1 X10*3/uL (0.0-0.4); Eosinophils Percent Auto 1.5 % (0-4); Hematocrit 37.5 % (42.0-52.0); Hemoglobin 12.4 g/dl (14.0-18.0); Imm Gran Abs Auto 0.02 X10*3/uL (0.00-0.03); Imm Gran Pct Auto 0.4 % (0.0-0.4); Lymphocytes Absolute Auto 1.3 X10*3/uL (1.2-4.9); Lymphocytes Percent Auto 27.4 % (20-40); Mean Corpuscular HGB Conc 33.1 g/dl (31.0-36.0); Mean Corpuscular Hemoglobin 36.7 pg (27.0-33.0); Mean Platelet Volume 10.6 fL (9.4-12.4); Monocytes Absolute Auto 0.7 X10*3/uL (0.1-1.2); Monocytes Percent Auto 15.2 % (2-11); Neutrophils Absolute Auto 2.6 x10*3/uL (2.0-8.3); Neutrophils Percent Auto 54.7 % (45-73); Platelet Count 127 X10*3/uL (160-400); Red Blood Count 3.38 X10*6/uL (4.60-5.80); Red Cell Distribution Width 16.2 % (11.0-16.0); White Blood Count 4.7 X10*3/uL (4.8-10.8)
[2023-05-23 01:33] LABS: Mean Corpuscular Volume 110.9 fL (80.0-98.0)
[2023-05-23 01:41] LABS: Ethanol 303 mg/dL
--- NOTE | 2023-05-23 01:41 | ED.ARRPALP ---
HPI - Arrhythmia/Palpitations General Chief Complaint: Arrhythmia/Palpitations Stated Complaint: ETOH Time Seen by Provider: 05/23/23 01:30 Source: patient Mode of arrival: EMS Limitations: no limitations History of Present Illness HPI narrative: patient comes to the emergency room complaining of alcohol intoxication and feeling that he is in atrial fibrillation. Patient states that he takes his medications as prescribed, patient takes metoprolol and Eliquis. However, patient continues to drink alcohol. Patient drank for vodka sodas prior to arrival. Patient denies chest pain or shortness of breath. Patient denies any falls. Related Data Home Medications Medication Instructions Recorded Confirmed thiamine mononitrate (vit B1) 100 100 mg PO DAILY 09/16/22 05/17/23 mg tablet (Vitamin B-1 (mononitrate)) Previous Rx's Medication Instructions Recorded amiodarone 200 mg tablet 200 mg PO DAILY 90 days #90 tabs 12/31/21 apixaban 5 mg tablet (Eliquis) 5 mg PO BID #180 tabs 12/31/21 empagliflozin 10 mg tablet 10 mg PO DAILY #30 tabs 11/18/22 (Jardiance) magnesium oxide 400 mg (241.3 mg 400 mg PO DAILY #90 tabs 03/13/23 magnesium) tablet metoprolol succinate 50 mg 50 mg PO DAILY #90 tabs 03/13/23 tablet,extended release 24 hr digoxin 125 mcg (0.125 mg) tablet 0.25 mg (2 x 125 mcg (0.125 mg)) 03/14/23 PO DAILY #60 tabs furosemide 40 mg tablet 80 mg PO DAILY 30 days #60 tabs 04/13/23 losartan 25 mg tablet 25 mg PO Q OTHER DAY 30 days #15 04/13/23 tabs folic acid 1 mg tablet 1 mg PO DAILY #90 tabs 04/14/23 spironolactone 25 mg tablet 25 mg PO DAILY #90 tabs 04/14/23 Allergies Allergy/AdvReac Type Severity Reaction Status Date / Time No Known Allergies Allergy Verified 03/11/23 08:50 [No Known Allergies*] Review of Systems Review of Systems: Constitutional : No Weight loss, No Fever, No Chills, No Night Sweats, No Fatigue, No Malaise ENT/Mouth : No Hearing loss, No Ear Pain, No Nasal Congestion, No Sinus Pain, No Hoarseness, No sore throat, No Rhinorrhea, No Swallowing Difficulty Eyes: No Eye Pain, No Swelling, No Redness, No Foreign Body, No Discharge, No Vision Changes Cardiovascular : No Chest Pain, No SOB, No Dyspnea on Exertion, No Orthopnea, No Edema , complaining of Palpitations Respiratory : No Cough, No Sputum, No Wheezing, No Smoke Exposure, No Dyspnea Gastrointestinal : No Nausea, No Vomiting, No Diarrhea, No Constipation, No abdominal Pain, No Hematochezia, No Melena Genitourinary : no irregular bleeding, No Dysuria, No Urinary Frequency, No Hematuria, No Urinary Incontinence, No Urgency, No Flank Pain, No Urinary Flow Changes, No Hesitancy Musculoskeletal : No joint pain, No Myalgias, No Joint Swelling Skin : No Skin Lesions, No rash Neuro : No Weakness, No Numbness, No Paresthesias, No Loss of Consciousness, No Dizziness, No Headache Psych : No Anxiety/Panic, No Depression, No SI/HI/AH/VH, Heme/Lymph: No Bruising, No Bleeding,No Lymphadenopathy Endocrine : No Polyuria, No Polydipsia, No Temperature Intolerance [facility] Past Medical History Medical History Alcohol dependence with withdrawal Cardiomyopathy Chronic HFrEF (heart failure with reduced ejection fraction) Atrial fibrillation with rapid ventricular response Alcoholic hepatitis HTN (hypertension) Surgical History No pertinent past surgical history Family History Family History Father CAD (coronary artery disease) Mother Atrial fibrillation Social History Social History Household Members: None Housing: Apartment Do you presently have visiting nurse or other home services: No Unable to assess alcohol history related to: Unable to respond Alcohol intake: current Alcohol intake frequency: 3 or more drinks per day Alcohol type: hard liquor Patient Tobacco Use Status: Never used Tobacco Second Hand Smoke Exposure: No Advance Directives: Yes Advance Directives on File: Yes Advance Directives Date on File: 02/12/23 service: No Current occupational status: unemployed Physical Exam Vital Signs: Vital Signs: Last Vital Signs Temp 98.2 F 05/23/23 01:22 Pulse 99 05/23/23 03:26 Resp 16 05/23/23 03:26 BP 110/80 05/23/23 01:22 Pulse Ox 99 05/23/23 01:22 O2 Del Method Room Air 05/23/23 01:22 BMI result Body Mass Index 29.9 Const: Other: Appearance: Alert. Oriented X3. No acute distress. slightly intoxicated but still able to hold a coherent conversation Eyes: Pupils equal, round and reactive to light. ENT: Pharynx normal. Neck: Normal inspection. Neck supple. No lymph nodes noted. No crepitus CVS: tachycardic, irregularly irregular, heart rate between 120-140, no murmurs Respiratory: No respiratory distress. Breath sounds normal. No Wheezing. No rales Abdomen: Soft and nontender. No rigidity. No distention. Skin: Skin warm and dry. Normal skin color. Normal skin turgor. Extremities: No lower extremity edema. No Lacerations. No Rash Neuro: Oriented X 3. No motor deficit. No sensory deficit. Moving all extremities. No slurred speech. CN 2 through 12 grossly intact Psych: calm, cooperative, normal affect Course Course Course Narrative: - all of patient's labs are are pending - patient takes metoprolol at home, we will give the patient 1 dose of 5 mg IV metoprolol To control heart rate. Medications Administered Discontinued Medications Generic Name Dose Route Start Last Admin Trade Name Freq PRN Reason Stop Dose Admin Metoprolol Tartrate 5 mg 05/23/23 01:39 05/23/23 02:02 Metoprolol Tartrate 5 Mg/5 Ml Vial IVPUSH 05/23/23 01:40 5 mg ONCE ONE Administration Medical Decision Making Medical Decision Making [facility] Narrative: -patient received 5 mg of IV metoprolol, patient feeling better, heart rate between 90 and 100. -troponin negative, BNP at baseline. -ETOH positive -patient admits that when he drinks alcohol, he does not take his medications for AFib -plan: Metabolize to freedom and discharge Differential Diagnosis Differential Diagnoses: The differential diagnosis associated with the presentation includes (Noncompliance medications, alcohol intoxication, atrial fibrillation) Admission/Observation Consideration of admission/observation: Escalation of care including admission/observation considered (Given patient's presentation, admission was considered) Lab Data [facility] Lab Attestation statement: I reviewed the patient's lab results. 05/23/23 01:20 05/23/23 01:20 Labs: Lab Results 05/23/23 05/23/23 05/23/23 Range/Units 01:19 01:20 01:53 WBC 4.7 L (4.8-10.8) X10*3/uL RBC 3.38 L (4.60-5.80) X10*6/uL Hgb 12.4 L (14.0-18.0) g/dl Hct 37.5 L (42.0-52.0) % MCV 110.9 H (80.0-98.0) fL MCH 36.7 H (27.0-33.0) pg MCHC 33.1 (31.0-36.0) g/dl RDW 16.2 H (11.0-16.0) % Plt Count 127 L D (160-400) X10*3/uL MPV 10.6 (9.4-12.4) fL Immature Gran % (Auto) 0.4 (0.0-0.4) % Neut % (Auto) 54.7 (45-73) % Lymph % (Auto) 27.4 (20-40) % [place] % (Auto) 15.2 H (2-11) % Eos % (Auto) 1.5 (0-4) % Baso % (Auto) 0.8 (0-2) % Lymph # (Auto) 1.3 (1.2-4.9) X10*3/uL [place] # (Auto) 0.7 (0.1-1.2) X10*3/uL Eos # (Auto) 0.1 (0.0-0.4) X10*3/uL Baso # (Auto) 0.0 (0.0-0.2) X10*3/uL Abs Immat Gran (auto) 0.02 (0.00-0.03) X10*3/uL Absolute Neuts (auto) 2.6 (2.0-8.3) x10*3/uL Absolute Nucleated RBC 0.000 (0.0-0.012) X10*3/uL Nucleated RBC % (auto) 0.0 (0.0-0.2) /100WBC PT 12.2 (11.1-13.3) SEC INR 1.0 (0.9-1.1) APTT 30.3 (26.0-36.4) SEC Sodium 139 (135-145) mmol/L Potassium 3.6 (3.3-5.1) mmol/L Chloride 102 (96-108) mmol/L Carbon Dioxide 25 (22-29) mmol/L Anion Gap 16 (12-20) BUN 16 (9-16) mg/dL Creatinine 1.05 (0.5-1.4) mg/dL Estim Creat Clear Calc 91.7 Estimated GFR > 60 Random Glucose 125 H (60-115) mg/dL Calcium 8.1 L (8.4-10.2) mg/dL Total Bilirubin 0.9 (0.0-1.0) mg/dL AST 56 H (5-37) U/L ALT 29 (0-40) U/L Alkaline Phosphatase 190 H (39-117) U/L Troponin I High Sens 20.4 D (<3.5-35.0) ng/L B-Natriuretic Peptide 485 H (<100) pg/mL Total Protein 6.5 (6.5-8.0) g/dL Albumin 3.5 (3.5-5.0) g/dL Ethyl Alcohol 303 H* mg/dL Independent Interpretation I performed an independent interpretation of an: EKG Critical Care Time Critical Care Time Critical Care Time: Yes Total Critical Care Time: 60 Attestation: I have personally provided critical care time. Time includes review of lab data, radiology results, discussion with consultants, and monitoring for potential decompensation. Intervention performed as documented. Discharge Plan Discharge Clinical Impression: Atrial fibrillation with RVR Patient Disposition: Home, Self-Care Instructions: A-fib (Atrial Fibrillation) (ED), Abuse of Alcohol (ED) Additional Instructions: Please follow-up with your primary care physician tomorrow. If you have any worsening or new symptoms, please return to the emergency room or call 911 Prescriptions: No Action amiodarone 200 mg tablet 200 mg PO DAILY 90 Days Qty: 90 1RF Eliquis 5 mg tablet 5 mg PO BID Qty: 180 1RF Jardiance 10 mg tablet 10 mg PO DAILY Qty: 30 1RF furosemide 40 mg tablet 80 mg PO DAILY 30 Days Qty: 60 1RF Protocol: Hold for SBP< HOLD for SBP < : 90 Rx Instructions: OVERDUE FOR APPT. PLEASE CALL [phone] TO SCHEDULE FOLLOW UP SO WE CAN CONTINUE REFILLING YOUR MEDICATIONS. losartan 25 mg tablet 25 mg PO Q OTHER DAY 30 Days Qty: 15 1RF Hold Instructions: Resume on 03/02/23. hold until seen by pcp Rx Instructions: OVERDUE FOR APPT. PLEASE CALL [phone] TO SCHEDULE FOLLOW UP SO WE CAN CONTINUE REFILLING YOUR MEDICATIONS. folic acid 1 mg tablet 1 mg PO DAILY Qty: 90 1RF Rx Instructions: OVERDUE FOR APPT. PLEASE CALL [phone] TO SCHEDULE FOLLOW UP SO WE CAN CONTINUE REFILLING YOUR MEDICATIONS. spironolactone 25 mg tablet 25 mg PO DAILY Qty: 90 0RF Rx Instructions: OVERDUE FOR APPT. PLEASE CALL [phone] TO SCHEDULE FOLLOW UP SO WE CAN CONTINUE REFILLING YOUR MEDICATIONS. metoprolol succinate 50 mg Tablet Extended Release 24 Hr 50 mg PO DAILY Qty: 90 0RF Protocol: Hold for SBP/HR < HOLD for SBP < : 90 HOLD for HR < : 60 magnesium oxide 400 mg (241.3 mg magnesium) Tablet 400 mg PO DAILY Qty: 90 0RF digoxin 125 mcg (0.125 mg) Tablet 0.25 mg PO DAILY Qty: 60 0RF thiamine mononitrate (vit B1) [Vitamin B-1 (mononitrate)] 100 mg tablet 100 mg PO DAILY
[2023-05-23 01:43] LABS: Prothrombin Time 12.2 SEC (11.1-13.3)
[2023-05-23 01:44] LABS: Alanine Aminotransferase 29 U/L (0-40); Albumin Level 3.5 g/dL (3.5-5.0); Alkaline Phosphatase 190 U/L (39-117); Anion Gap 16 (12-20); Aspartate Amino Transferase 56 U/L (5-37); Bilirubin Total 0.9 mg/dL (0.0-1.0); Blood Urea Nitrogen 16 mg/dL (9-16); Calcium 8.1 mg/dL (8.4-10.2); Carbon Dioxide 25 mmol/L (22-29); Chloride 102 mmol/L (96-108); Creatinine Clr Calc Pharmacy 91.7; Estimated Glomerular Filt Rate > 60; Glucose Random 125 mg/dL (60-115); Potassium 3.6 mmol/L (3.3-5.1); Sodium 139 mmol/L (135-145); Total Protein 6.5 g/dL (6.5-8.0)
[2023-05-23 01:46] LABS: Partial Thromboplastin Time 30.3 SEC (26.0-36.4)
[2023-05-23 01:47] LABS: Troponin-I High Sensitivity 20.4 ng/L (<3.5-35.0)
[2023-05-23] MEDS: Metoprolol Tartrate 5 MG/5 ML VIAL IVPUSH (02:02)
[2023-05-23 02:40] LABS: B Type Natriuretic Peptide 485 pg/mL (<100)
[2023-05-23 03:26] VITALS: PULSE 99; RESP 16
--- NOTE | 2023-05-23 04:26 | PC.NURSE ---
does not have sober ride home, will stay in ED until he is sober for D/C
[2023-05-23 06:00] VITALS: BP 97/60; PULSE 109; RESP 16; TEMP 36.6; O2SAT 97
--- NOTE | 2023-05-23 06:54 | PC.NURSE ---
ambulated with steady gait
== END 2023-05-23 07:13 | disposition home or self-care (01) ==
PROVIDERS: Emergency Provider Emergency Medicine
DX: I48.20 Chronic atrial fibrillation, unspecified (principal); F10.129 Alcohol abuse with intoxication, unspecified; Y90.8 Blood alcohol level of 240 mg/100 ml or more; R06.02 Shortness of breath; Z79.899 Other long term (current) drug therapy
CPT/HCPCS: 36415; 80053; 80307; 83880; 84484; 85025; 85610; 85730; 93005; 96374; 99285

== ENCOUNTER 2023-05-23 12:05 | Inpatient (IN) | payer OTHER, SELFPAY ==
[2023-05-23] VITALS (10 sets, daily range): BP systolic 103–123; BP diastolic 58–81; PULSE 87–125; RESP 15–20; TEMP 36.7–36.9; O2SAT 94–98; BMI 30.9
--- NOTE | ~2023-05-23 | XR_ITS ---
EXAMINATION: XR CHEST CLINICAL INFORMATION: Cough COMPARISON: 05/17/2023 TECHNIQUE: Frontal view of the chest was obtained. FINDINGS: Again seen is cardiomegaly. There is mild upper zone redistribution suggesting mildly elevated left ventricular end-diastolic pressure. No gross interstitial edema. Left basilar atelectasis is again seen and a small left pleural effusion is questioned although the costophrenic angle is not entirely included on this exam. XR/XR chest 1V IMPRESSION: Cardiomegaly with question of mild pulmonary vascular congestion. Question of small left pleural effusion.
--- NOTE | 2023-05-23 12:18 | ECG_ITS ---
Test Reason : palpitations Blood Pressure : / mmHG Vent. Rate : 131 BPM Atrial Rate : 000 BPM P-R Int : 000 ms QRS Dur : 102 ms QT Int : 344 ms P-R-T Axes : 000 037 236 degrees QTc Int : 507 ms Atrial fibrillation with rapid ventricular response with premature ventricular or aberrantly conducted complexes Nonspecific ST and T wave abnormality Abnormal ECG When compared with ECG of 23-MAY-2023 01:42, No significant change was found Referred By: Hamlet Beltrán Electronically Signed By:KASEY MONTELONGO MD
[2023-05-23] MEDS: 0.9 % Sodium Chloride 1,000 ML 999 ML IVCONT (12:26)
--- NOTE | 2023-05-23 12:28 | PC.NURSE ---
pt reports that he was DCed from [facility] floor this morning but records show that he was in the ED this morning. Pt as AOx3 - know todays date, and where he is but seems unaware of the past few days. afib on tele rate 100-130s reports no pain. IV inserted by EMS, NS infusing per MAR> EKG done.
--- NOTE | 2023-05-23 12:33 | ED_ITS ---
HPI - Arrhythmia/Palpitations General Chief Complaint: Arrhythmia/Palpitations Stated Complaint: PALPITATIONS,SEEN RECENTLY PER EMS Time Seen by Provider: 05/23/23 12:17 Source: patient and EMS Mode of arrival: EMS History of Present Illness HPI narrative: This is 57 years old man seen here earlier by Dr. Sethi at 01:00 for rapid atrial fibrillation with RVR he was discharged home a return now with the driving a fever with a heart rate of 131 via wire splicer. He has history of congestive heart failure, alcohol abuse, he has a cardiomyopathy with EF of 10-20% MD complaint: rapid heart beat and irregular heart beat Onset (ago): hour(s) (8) Duration: constant Severity: severe Context: occurred during rest Arrhythmia history: atrial fibrillation and on anti-coagulants Associated symptoms: denies other symptoms Related Data Home Medications Medication Instructions Recorded Confirmed thiamine mononitrate (vit B1) 100 100 mg PO DAILY 09/16/22 05/17/23 mg tablet (Vitamin B-1 (mononitrate)) Previous Rx's Medication Instructions Recorded amiodarone 200 mg tablet 200 mg PO DAILY 90 days #90 tabs 12/31/21 apixaban 5 mg tablet (Eliquis) 5 mg PO BID #180 tabs 12/31/21 empagliflozin 10 mg tablet 10 mg PO DAILY #30 tabs 11/18/22 (Jardiance) magnesium oxide 400 mg (241.3 mg 400 mg PO DAILY #90 tabs 03/13/23 magnesium) tablet metoprolol succinate 50 mg 50 mg PO DAILY #90 tabs 03/13/23 tablet,extended release 24 hr digoxin 125 mcg (0.125 mg) tablet 0.25 mg (2 x 125 mcg (0.125 mg)) 03/14/23 PO DAILY #60 tabs furosemide 40 mg tablet 80 mg PO DAILY 30 days #60 tabs 04/13/23 losartan 25 mg tablet 25 mg PO Q OTHER DAY 30 days #15 04/13/23 tabs folic acid 1 mg tablet 1 mg PO DAILY #90 tabs 04/14/23 spironolactone 25 mg tablet 25 mg PO DAILY #90 tabs 04/14/23 Allergies Allergy/AdvReac Type Severity Reaction Status Date / Time No Known Allergies Allergy Verified 03/11/23 08:50 [No Known Allergies*] Review of Systems 2 Constitutional: Constitutional: Reports no additional constitutional complaints Cardiovascular: Cardiovascular: Reports no additional cardiovascular complaints, Reports chest pain and Reports rapid heart rate Respiratory: Respiratory: Reports no additional respiratory complaints [facility] Past Medical History Medical History Alcohol dependence with withdrawal Cardiomyopathy Chronic HFrEF (heart failure with reduced ejection fraction) Atrial fibrillation with rapid ventricular response Alcoholic hepatitis HTN (hypertension) Surgical History No pertinent past surgical history Family History Family History Father CAD (coronary artery disease) Mother Atrial fibrillation Social History Social History Household Members: None Housing: Apartment Do you presently have visiting nurse or other home services: No Unable to assess alcohol history related to: Unable to respond Alcohol intake: current Alcohol intake frequency: 3 or more drinks per day Alcohol type: hard liquor Patient Tobacco Use Status: Never used Tobacco Second Hand Smoke Exposure: No Advance Directives: Yes Advance Directives on File: Yes Advance Directives Date on File: 02/12/23 service: No Current occupational status: unemployed Physical Exam 2 Vital Signs: Vital Signs: Last Vital Signs Temp 98.1 F 05/23/23 12:13 Pulse 125 H 05/23/23 12:13 Resp 18 05/23/23 12:13 BP 123/79 05/23/23 12:13 Pulse Ox 98 05/23/23 12:13 O2 Del Method Room Air 05/23/23 12:13 BMI result Body Mass Index 30.9 Const: General: cooperative, no acute distress, well developed and alert N utritional Appearance: well nourished Orientation/consciousness: patient oriented x3 Limitations: no limitations HEENT: Head: Yes normal to inspection Mouth: Normal oral and palatal mucosa present Neck: Neck: Yes normal visual inspection, Yes full ROM and Yes no lymphadenopathy Resp: Effort & Inspection: normal respiratory effort Cardio: Jugular venous distension: no JVD Rate: regular rate Rhythm: r egular rhythm GI: Inspection: Yes normal to inspection Palpation (GI): Soft to palpation, not firm and nontender : General: Yes no CVA tenderness Back/Spine/Pelvis: Back: no CVA tenderness Neuro: General: patient oriented x3 Cranial nerves: Yes CN's II-XII intact bilaterally Course Reevaluation(s) Reevaluation #1: Workup completed, troponin flat since this morning 01:00 o'clock, chest x-ray BNP raise the question of CHF, patient will be admitted to the hospital rate controlled with Cardizem we gave him a dose of Lasix. I discussed the case with hospitalist DR Alvarez Time: 13:31 Medications Administered Generic Name Dose Route Start Last Admin Trade Name Freq PRN Reason Stop Dose Admin Diltiazem HCl 125 mg/ Sodium 125 mls @ 0 mls/hr 05/23/23 12:45 05/23/23 12:57 Chloride IVCONT 10 mg/hr .Q0M EDWIN 10 mls/hr Administration Protocol Per Protocol Discontinued Medications Generic Name Dose Route Start Last Admin Trade Name Freq PRN Reason Stop Dose Admin Diltiazem HCl 15 mg 05/23/23 12:33 05/23/23 12:46 Diltiazem Hcl 50 Mg/10 Ml Vial IVPUSH 05/23/23 12:34 15 mg STAT STA Administration Sodium Chloride 1,000 mls @ 999 mls/hr 05/23/23 12:30 05/23/23 13:43 Ns IVCONT 05/23/23 13:30 Infused .Q1H1M EDWIN Infusion Medical Decision Making Medical Decision Making [facility] Narrative: Patient presented with the rapid atrial fibrillation will start him on IV Cardizem @1:30 PM Differential Diagnosis Differential Diagnoses: The differential diagnosis associated with the presentation includes Rapid atrial fibrillation/acute coronary syndrome Admission/Observation Consideration of admission/observation: Escalation of care including admission/observation considered Consult Healthcare Provider Management of the patient was discussed with: Hospitalist Lab Data [facility] Lab Attestation statement: I reviewed the patient's lab results. 05/23/23 12:37 05/23/23 12:37 Labs: Lab Results 05/23/23 Range/Units 12:37 WBC 4.8 (4.8-10.8) X10*3/uL RBC 3.09 L (4.60-5.80) X10*6/uL Hgb 11.4 L (14.0-18.0) g/dl Hct 33.7 L (42.0-52.0) % MCV 109.1 H (80.0-98.0) fL MCH 36.9 H (27.0-33.0) pg MCHC 33.8 (31.0-36.0) g/dl RDW 16.3 H (11.0-16.0) % Plt Count 112 L (160-400) X10*3/uL MPV 10.5 (9.4-12.4) fL Immature Gran % (Auto) 0.2 (0.0-0.4) % Neut % (Auto) 70.5 (45-73) % Lymph % (Auto) 13.4 L (20-40) % [place] % (Auto) 14.7 H (2-11) % Eos % (Auto) 0.6 (0-4) % Baso % (Auto) 0.6 (0-2) % Lymph # (Auto) 0.7 L (1.2-4.9) X10*3/uL [place] # (Auto) 0.7 (0.1-1.2) X10*3/uL Eos # (Auto) 0.0 (0.0-0.4) X10*3/uL Baso # (Auto) 0.0 (0.0-0.2) X10*3/uL Abs Immat Gran (auto) 0.01 (0.00-0.03) X10*3/uL Absolute Neuts (auto) 3.4 (2.0-8.3) x10*3/uL Absolute Nucleated RBC 0.000 (0.0-0.012) X10*3/uL Nucleated RBC % (auto) 0.0 (0.0-0.2) /100WBC Sodium 141 (135-145) mmol/L Potassium 4.1 (3.3-5.1) mmol/L Chloride 103 (96-108) mmol/L Carbon Dioxide 26 (22-29) mmol/L Anion Gap 16 (12-20) BUN 14 (9-16) mg/dL Creatinine 0.98 (0.5-1.4) mg/dL Estim Creat Clear Calc 99.8 Estimated GFR > 60 Random Glucose 96 (60-115) mg/dL Calcium 8.1 L (8.4-10.2) mg/dL Magnesium 1.6 (1.6-2.6) mg/dL Total Bilirubin 1.1 H (0.0-1.0) mg/dL AST 73 H (5-37) U/L ALT 29 (0-40) U/L Alkaline Phosphatase 196 H (39-117) U/L Troponin I High Sens 23.8 (<3.5-35.0) ng/L B-Natriuretic Peptide 1327 H (<100) pg/mL Total Protein 6.2 L (6.5-8.0) g/dL Albumin 3.5 (3.5-5.0) g/dL Independent Interpretation I performed an independent interpretation of an: EKG (Rapid AFib with a rate of 130) Radiology Impression Discussion of test interpretation with radiology: I have reviewed the radiologist's reading. Radiologist Impression: Cough COMPARISON: 05/17/2023 TECHNIQUE: Frontal view of the chest was obtained. FINDINGS: Again seen is cardiomegaly. There is mild upper zone redistribution suggesting mildly elevated left ventricular end-diastolic pressure. No gross interstitial edema. Left basilar atelectasis is again seen and a small left pleural effusion is questioned although the costophrenic angle is not entirely included on this exam. XR/XR chest 1V IMPRESSION: Cardiomegaly with question of mild pulmonary vascular congestion. Question of small left pleural effusion. Independent Historian Clinical information obtained from an independent historian. History obtained from or confirmed by: EMS spoke with EMS External Record Review External record reviewed: Inpatient record Chronic Conditions Patient?s care impacted by: Other (Cardiomyopathy) Social Determinants alcohol abuse Critical Care Time Critical Care Time Critical Care Time: Yes Total Critical Care Time: 60 Attestation: iV cardizem and titration,IV lasix Discharge Plan Discharge Clinical Impression: Atrial fibrillation with RVR, CHF (congestive heart failure), Alcoholism Patient Disposition: Admitted As Inpatient
[2023-05-23 12:42] LABS: MANUAL DIFF FLAG NO
[2023-05-23 12:45] LABS: Basophils Percent Auto 0.6 % (0-2); Eosinophils Percent Auto 0.6 % (0-4); Hematocrit 33.7 % (42.0-52.0); Hemoglobin 11.4 g/dl (14.0-18.0); Imm Gran Abs Auto 0.01 X10*3/uL (0.00-0.03); Imm Gran Pct Auto 0.2 % (0.0-0.4); Lymphocytes Absolute Auto 0.7 X10*3/uL (1.2-4.9); Lymphocytes Percent Auto 13.4 % (20-40); Mean Corpuscular HGB Conc 33.8 g/dl (31.0-36.0); Mean Corpuscular Hemoglobin 36.9 pg (27.0-33.0); Mean Corpuscular Volume 109.1 fL (80.0-98.0); Mean Platelet Volume 10.5 fL (9.4-12.4); Monocytes Absolute Auto 0.7 X10*3/uL (0.1-1.2); Monocytes Percent Auto 14.7 % (2-11); Neutrophils Absolute Auto 3.4 x10*3/uL (2.0-8.3); Neutrophils Percent Auto 70.5 % (45-73); Platelet Count 112 X10*3/uL (160-400); Red Blood Count 3.09 X10*6/uL (4.60-5.80); Red Cell Distribution Width 16.3 % (11.0-16.0); White Blood Count 4.8 X10*3/uL (4.8-10.8)
[2023-05-23] MEDS: dilTIAZem HCL 50 MG/10 ML VIAL 15 MG IVPUSH (12:46)
[2023-05-23] MEDS: dilTIAZem HCL 125 MG in 0.9 % Sodium Chloride 100 ML 10 MG IVCONT (12:57)
[2023-05-23 13:02] LABS: Alanine Aminotransferase 29 U/L (0-40); Albumin Level 3.5 g/dL (3.5-5.0); Alkaline Phosphatase 196 U/L (39-117); Anion Gap 16 (12-20); Aspartate Amino Transferase 73 U/L (5-37); Bilirubin Total 1.1 mg/dL (0.0-1.0); Blood Urea Nitrogen 14 mg/dL (9-16); Calcium 8.1 mg/dL (8.4-10.2); Carbon Dioxide 26 mmol/L (22-29); Chloride 103 mmol/L (96-108); Creatinine Clr Calc Pharmacy 99.8; Estimated Glomerular Filt Rate > 60; Glucose Random 96 mg/dL (60-115); Magnesium 1.6 mg/dL (1.6-2.6); Potassium 4.1 mmol/L (3.3-5.1); Sodium 141 mmol/L (135-145); Total Protein 6.2 g/dL (6.5-8.0)
[2023-05-23 13:04] LABS: B Type Natriuretic Peptide 1327 pg/mL (<100)
[2023-05-23 13:09] LABS: Troponin-I High Sensitivity 23.8 ng/L (<3.5-35.0)
--- NOTE | 2023-05-23 13:20 | PC.NURSE ---
cardizem bolus given and drip started at 10g/hour (10ml/hour). observed tele monitor - HR is remaining below 120.
[2023-05-23] MEDS: Furosemide 40 MG/4 ML VIAL IVPUSH ×2 (13:56→18:29)
--- NOTE | 2023-05-23 14:00 | PC.NURSE ---
non pitting edema noted to pts lower legs bilaterally. pt reports that he has noticed this increasing over the past couple of months. HR jumps from 110-120 with some spikes to 120-130. Cardizem drip titrated to 15 mg/hr. notified.
--- NOTE | 2023-05-23 14:26 | P.HPHOSP_ITS ---
History of Present Illness Date of Service: 05/23/23 Chief Complaint: Afib rvr , Alcoholism A 57 years old male with PMH of Afib, CHF w reduced EF, alcohlism, HTN who presents back to the hospital with palpitations. he was discharged 3 days ago with similar presentaiton as he continues to drink alcohol with a question if he takes his medications as outpatient. reports walking on the street when he felt weak, clammy, palpitations with no reported chest pain, nausea or vomiting. He was brought by EMS to the ED where he was found in Afib rvr. started on Cardizem drip and admitted for further treatment. Review of Systems 2 Review of Systems: No fever, chills but having weakness No chest pain, reporting palpitation No shortness of breath or coughing No abdominal pain, nausea or vomiting No urinary symptoms No any rash or wounds PMFSH Medical History Alcohol dependence with withdrawal Cardiomyopathy Chronic HFrEF (heart failure with reduced ejection fraction) Atrial fibrillation with rapid ventricular response Alcoholic hepatitis HTN (hypertension) Family History Father CAD (coronary artery disease) Mother Atrial fibrillation Surgical History No pertinent past surgical history Social History Household Members: None Housing: Apartment Do you presently have visiting nurse or other home services: No Unable to assess alcohol history related to: Unable to respond Alcohol intake: current Alcohol intake frequency: 3 or more drinks per day Alcohol type: hard liquor Patient Tobacco Use Status: Never used Tobacco Second Hand Smoke Exposure: No Advance Directives Date on File: 02/12/23 service: No Current occupational status: unemployed Meds Allergies Allergy/AdvReac Type Severity Reaction Status Date / Time No Known Allergies Allergy Verified 03/11/23 08:50 [No Known Allergies*] Active Medications: Current Medications Acetaminophen (Acetaminophen 325 Mg Tablet) 650 mg PO Q6H PRN PRN Reason: Pain, Mild (Pain Scale 1-3) Digoxin (Digoxin 0.125 Mg Tablet) 0.125 mg PO ONCE ONE Stop: 05/23/23 14:18 Enoxaparin Sodium (Enoxaparin Sodium 40 Mg/0.4 Ml Syringe) 40 mg SUBCUT Q24H EDWIN Furosemide (Furosemide 40 Mg/4 Ml Vial) 40 mg IVPUSH BID@0900,1800 [facility]; Protocol Diltiazem HCl 125 mg/ Sodium (Chloride) 125 mls @ 0 mls/hr IVCONT .Q0M [facility]; Protocol Last Admin: 05/23/23 12:57 Dose: 10 mg/hr, 10 mls/hr Magnesium Sulfate (Magnesium Sulfate/H2o) 2 gm in 50 mls @ 25 mls/hr IV ONCE ONE Stop: 05/23/23 16:19 Metoprolol Succinate (Metoprolol Succinate Er 50 Mg Tab.Er.24h) 50 mg PO ONCE ONE; Protocol Stop: 05/23/23 14:18 Ondansetron HCl (Ondansetron Hcl 4 Mg/2 Ml Vial) 4 mg IVPUSH Q8H PRN PRN Reason: Nausea and Vomiting Sodium Chloride (0.9 % Sodium Chloride Flush 3 Ml Syringe) 3 ml IVFLUSH QSHIFT [facility] Home Medications Medication Instructions Recorded Confirmed Last Taken Type thiamine mononitrate (vit B1) 100 100 mg PO DAILY 09/16/22 05/23/23 05/20/23 History mg tablet (Vitamin B-1 (mononitrate)) Physical Exam 2 Vital Signs and Narrative: Vital Signs: Last Vital Signs Temp 98.1 F 05/23/23 12:13 Pulse 122 H 05/23/23 14:08 Resp 16 05/23/23 14:08 BP 113/77 05/23/23 14:08 Pulse Ox 97 05/23/23 14:08 O2 Del Method Room Air 05/23/23 14:08 BMI result Body Mass Index 30.9 Const: Other: Constitutional : Awake, interactive, not in distress Neck : Normal inspection, Supple Cardiovascular : irregular irregular , no JVP, +1 lower extremity edema Respiratory : good bilateral air entry, no crackles, wheezes or rhonchi Gastrointestinal: soft, lax, Normal bowel sounds, Non tender Skin : Warm, Dry Neurological : Alert & oriented x3, No focal deficit , CN 2-12 within normal Results Labs 05/23/23 12:37 05/23/23 12:37 Labs: Laboratory Results - last 24 hr 05/23/23 12:37 MCV 109.1 H MCH 36.9 H MCHC 33.8 RDW 16.3 H Plt Count 112 L MPV 10.5 Immature Gran % (Auto) 0.2 Neut % (Auto) 70.5 Lymph % (Auto) 13.4 L Real % (Auto) 14.7 H Eos % (Auto) 0.6 Baso % (Auto) 0.6 Lymph # (Auto) 0.7 L Real # (Auto) 0.7 Eos # (Auto) 0.0 Baso # (Auto) 0.0 Abs Immat Gran (auto) 0.01 Absolute Neuts (auto) 3.4 Absolute Nucleated RBC 0.000 Nucleated RBC % (auto) 0.0 Anion Gap 16 Estim Creat Clear Calc 99.8 Estimated GFR > 60 Random Glucose 96 Calcium 8.1 L Magnesium 1.6 Total Bilirubin 1.1 H AST 73 H ALT 29 Alkaline Phosphatase 196 H B-Natriuretic Peptide 1327 H Total Protein 6.2 L Albumin 3.5 Imaging Radiologist's Impressions: Impressions Chest X-Ray 05/23/23 12:46 IMPRESSION: Cardiomegaly with question of mild pulmonary vascular congestion. Question of small left pleural effusion. Assessment and Plan (1) Alcoholism: Status: Acute (2) CHF (congestive heart failure): Status: Acute (3) Atrial fibrillation with RVR: Status: Acute (4) Alcohol dependence with withdrawal: Status: Acute Plan A 57 years old male with PMH of Afib, CHF w reduced EF, alcohlism, HTN who presents back to the hospital with palpitations. Chronic atrial fibrillation with rapid ventricular response Started on Cardizem drip Continue amiodarone, digoxin, metoprolol Cardiology consult for referral to EP at [facility] regarding suitability for AV node ablation and ICD placement Eliquis ? Acute on Chronic systolic CHF severe cardiomyopathy with an ejection fraction of 10-20% range Will hold losartan and Aldactone to make room for increased metoprolol if needed for rate control Continue Lasix, metoprolol, Jardiance Alcohol dependence with withdrawal Advised to quit alcohol Start Phenobarb CIWA Alcoholic fatty liver disease with thrombocytopenia Abstinence recommended DVT prophylaxis with Eliquis Full code Needs likely 2 overnight hospital stay for Afib w rvr management and alcohol dependence with withdrawal Quality Stroke Does the patient have a stroke diagnosis?: No VTE Prior VTE?: No VTE Risk Level:: Medical - moderate - high VTE Device Contraindication: Treatment Not Indicated VTE Drug Contraindication: N/A - Med Ordered
--- NOTE | 2023-05-23 14:54 | PHA.MEDREC ---
Pharmacy Consult ? Medication Reconciliation Pharmacy has completed the medication reconciliation. Spoke to patient to confirm meds. Patient mentions they take 11 meds daily, however when questioned, the patient cannot remember the last 2 medications omitted from the med rec.
[2023-05-23] MEDS: Digoxin 0.125 MG TABLET PO (15:00)
[2023-05-23] MEDS: Metoprolol Succinate ER 50 MG TAB.ER.24H PO (15:00)
[2023-05-23] MEDS: Enoxaparin Sodium 40 MG/0.4 ML SYRINGE SUBCUT (15:01)
--- NOTE | 2023-05-23 15:02 | PC.NURSE ---
afib on tele - rate 110s 120s with occasional jump to 130s. PVCs noted
--- NOTE | 2023-05-23 15:48 | PC.NURSE ---
HR rage is 87-107, afib on tele. Per hospitalist continue dilt drip and taper down by 5 mg/hr.
[2023-05-23] MEDS: Magnesium Sulfate/H2O 2 GM/50 ML PIGGYBACK IV (15:50)
--- NOTE | 2023-05-23 16:03 | PC.NURSE ---
CIWA 0 - MD notified. held phenobarb
--- NOTE | 2023-05-23 18:19 | PC.NURSE ---
rate remains in 80s and 90s. per MD cont to taper down by 5 with controlled rate. titrated to 5ml/hr
--- NOTE | 2023-05-23 19:22 | PC.NURSE ---
davida rn assumed care of pt. this rn assisted pt to stand up at bedside, pt tolerated well. pt in afib on monitor 103-106. pt a&ox3, respirations even and unlabored. pt denies dizziness, SOB and chest pain upon standing. per provider verbal order, hold phenobarbitol per pt CIWA being 0. pt CIWA currently 0 at this time.
--- NOTE | 2023-05-23 19:31 | PC.NURSE ---
report given to [facility] nurse.
--- NOTE | 2023-05-23 19:40 | PC.NURSE ---
aox4. calm, coop. no resp distress. +CMS. dilt drip remains w/o changes en route.
[2023-05-23] MEDS: Apixaban 5 MG TABLET PO (21:05)
[2023-05-23] MEDS: PHENobarbitaL sodium 130 MG/ML IM ONCE 234 MG IM (21:08)
[2023-05-24] VITALS: BP 115/82; PULSE 82; RESP 20; TEMP 36.1; O2SAT 98
[2023-05-24] MEDS: PHENobarbitaL sodium 130 MG/ML VIAL IM Q3Hx2 175 MG IM ×2 (00:16→03:48)
[2023-05-24] MEDS: 0.9 % Sodium Chloride Flush 3 ML SYRINGE IVFLUSH ×2 (00:19→08:46)
[2023-05-24 03:19] VITALS: BP 101/59; PULSE 81; RESP 20; TEMP 36.7; O2SAT 94
[2023-05-24] MEDS: dilTIAZem HCL 125 MG in 0.9 % Sodium Chloride 100 ML IVCONT (03:54)
[2023-05-24 07:27] VITALS: BP 115/80; PULSE 78; RESP 16; TEMP 36.5; O2SAT 93
[2023-05-24 07:55] LABS: Blood Urea Nitrogen 12 mg/dL (9-16); Creatinine Clr Calc Pharmacy 112.5; Estimated Glomerular Filt Rate > 60; Glucose Random 86 mg/dL (60-115)
[2023-05-24 08:10] LABS: Anion Gap 13 (12-20); Carbon Dioxide 29 mmol/L (22-29); Chloride 98 mmol/L (96-108); Potassium 2.8 mmol/L (3.3-5.1); Sodium 137 mmol/L (135-145)
[2023-05-24] MEDS: Apixaban 5 MG TABLET PO (08:47)
[2023-05-24] MEDS: Potassium Chloride Packet 20 MEQ PACKET 40 MEQ PO ×2 (08:47→11:46)
[2023-05-24] MEDS: Potassium Chloride/H20 10 MEQ/100 ML PIGGYBACK 100 MEQ IV (08:47)
[2023-05-24] MEDS: Furosemide 40 MG/4 ML VIAL IVPUSH (08:47)
[2023-05-24] MEDS: Magnesium Oxide 400 MG TABLET 800 MG PO (08:47)
[2023-05-24] MEDS: PHENobarbitaL 15 MG TABLET 45 MG PO (08:47)
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
[2023-05-24 11:18] VITALS: BP 96/64; PULSE 90; RESP 16; TEMP 36.3; O2SAT 98
--- NOTE | 2023-05-24 12:28 | PM.CNCAR ---
History of Present Illness History of Present Illness Date of Service: 05/24/23 Chief complaint: palpitations, Afib with RVR Narrative: [age] gentleman with known history of cardiomyopathy with severe LV dysfunction and recurrent atrial fibrillation with rapid ventricular response. He also has background of pulmonary embolism. He has alcoholism. He recently left the hospital but came back with palpitations and AFib with RVR. Previous admission there was a discussion with electrophysiology at [facility] to consider AV christy ablation and GUEST SERVICES COORDINATOR DB. Plan was to do this as outpatient. He is saying that he was walking and he walked longer than he should have and started having severe palpitations. He stopped and asked passerby to call EMS. In the ER he was in AFib with RVR and was given Cardizem. His heart rates are well controlled at this point. He is on his home medications. He is asking whether he can go home. Denying any other symptoms currently. [facility] Past Medical History Medical History Alcohol dependence with withdrawal Cardiomyopathy Chronic HFrEF (heart failure with reduced ejection fraction) Atrial fibrillation with rapid ventricular response Alcoholic hepatitis HTN (hypertension) Family History Family History Father CAD (coronary artery disease) Mother Atrial fibrillation Surgical History Surgical History No pertinent past surgical history Social History Social History Household Members: None Housing: Apartment Do you presently have visiting nurse or other home services: No Unable to assess alcohol history related to: Unable to respond Alcohol intake: current Alcohol intake frequency: 3 or more drinks per day Alcohol type: hard liquor Patient Tobacco Use Status: Never used Tobacco Second Hand Smoke Exposure: No Advance Directives Date on File: 02/12/23 service: No Current occupational status: unemployed Meds Allergies Allergy/AdvReac Type Severity Reaction Status Date / Time No Known Allergies Allergy Verified 03/11/23 08:50 [No Known Allergies*] Active Medications: Current Medications Acetaminophen (Acetaminophen 325 Mg Tablet) 650 mg PO Q6H PRN PRN Reason: Pain, Mild (Pain Scale 1-3) Apixaban (Apixaban 5 Mg Tablet) 5 mg PO BID [facility] Last Admin: 05/24/23 08:47 Dose: 5 mg Furosemide (Furosemide 40 Mg/4 Ml Vial) 40 mg IVPUSH DAILY [facility]; Protocol Diltiazem HCl 125 mg/ Sodium (Chloride) 125 mls @ 0 mls/hr IVCONT .Q0M [facility]; Protocol Last Titration: 05/24/23 09:51 Dose: Infused Magnesium Oxide (Magnesium Oxide 400 Mg Tablet) 800 mg PO DAILY [facility] Last Admin: 05/24/23 08:47 Dose: 800 mg Ondansetron HCl (Ondansetron Hcl 4 Mg/2 Ml Vial) 4 mg IVPUSH Q8H PRN PRN Reason: Nausea and Vomiting Pharmacy Consult (Consult Rx Etoh Phenob Im/Po) 1 each MISCELLANE ONCE PRN; Protocol PRN Reason: Consult order Phenobarbital (Phenobarbital 15 Mg Tablet) 45 mg PO BID [facility] Stop: 05/25/23 21:01 Last Admin: 05/24/23 08:47 Dose: 45 mg Phenobarbital (Phenobarbital 15 Mg Tablet) 15 mg PO BID [facility] Stop: 05/27/23 21:01 Phenobarbital (Phenobarbital 15 Mg Tablet) 15 mg PO DAILY [facility] Stop: 05/29/23 09:01 Sodium Chloride (0.9 % Sodium Chloride Flush 3 Ml Syringe) 3 ml IVFLUSH QSHIFT [facility] Last Admin: 05/24/23 08:46 Dose: 3 ml Home Medications Medication Instructions Recorded Confirmed Last Taken Type thiamine mononitrate (vit B1) 100 100 mg PO DAILY 09/16/22 05/23/23 05/20/23 History mg tablet (Vitamin B-1 (mononitrate)) Physical Exam Vital Signs: Vital Signs: Last Vital Signs Temp 97.3 F 05/24/23 11:18 Pulse 90 05/24/23 11:18 Resp 16 05/24/23 11:18 BP 96/64 05/24/23 11:18 Pulse Ox 98 05/24/23 11:18 O2 Del Method Room Air 05/24/23 11:18 BMI result Body Mass Index 30.9 GENERAL APPEARANCE: in no acute distress. NECK: no carotid bruit, mild jugular venous distention. SKIN: no suspicious lesions, warm and dry. HEART: no murmurs, irregular rate and rhythm. LUNGS: clear to auscultation bilaterally. ABDOMEN: soft, nontender. EXTREMITIES: +1 edema. PERIPHERAL PULSES: equal. NEUROLOGIC: No gross deficits, AAO X 3 Objective Labs and Meds 05/23/23 12:37 05/24/23 05:57 Lab results: Laboratory Results - last 24 hr 05/23/23 05/24/23 12:37 05:57 WBC 4.8 RBC 3.09 L Hgb 11.4 L Hct 33.7 L MCV 109.1 H MCH 36.9 H MCHC 33.8 RDW 16.3 H Plt Count 112 L MPV 10.5 Immature Gran % (Auto) 0.2 Neut % (Auto) 70.5 Lymph % (Auto) 13.4 L [place] % (Auto) 14.7 H Eos % (Auto) 0.6 Baso % (Auto) 0.6 Lymph # (Auto) 0.7 L [place] # (Auto) 0.7 Eos # (Auto) 0.0 Baso # (Auto) 0.0 Abs Immat Gran (auto) 0.01 Absolute Neuts (auto) 3.4 Absolute Nucleated RBC 0.000 Nucleated RBC % (auto) 0.0 Hold Purple Top SEE NOTE Sodium 141 137 Potassium 4.1 2.8 L D Chloride 103 98 Carbon Dioxide 26 29 Anion Gap 16 13 BUN 14 12 Creatinine 0.98 0.87 Estim Creat Clear Calc 99.8 112.5 Estimated GFR > 60 > 60 Random Glucose 96 86 Calcium 8.1 L 8.0 L Magnesium 1.6 Total Bilirubin 1.1 H AST 73 H ALT 29 Alkaline Phosphatase 196 H Troponin I High Sens 23.8 B-Natriuretic Peptide 1327 H Total Protein 6.2 L Albumin 3.5 Imaging Radiologist's impression: Impressions Chest X-Ray 05/23/23 12:46 IMPRESSION: Cardiomegaly with question of mild pulmonary vascular congestion. Question of small left pleural effusion. Assessment and Plan (1) Alcoholism: Status: Acute (2) Atrial fibrillation with RVR: Status: Acute (3) Cardiomyopathy: Status: Acute Plan 57-year-old gentleman presenting for AFib with RVR. He recently had admission with AFib with RVR and there was a discussion with electrophysiology at [facility] to considered AV christy ablation and GUEST SERVICES COORDINATOR D. I have messaged Dr. Shelley at [facility] and it appears that inpatient procedure is not possible. They will arrange him to be seen as outpatient for GUEST SERVICES COORDINATOR D and AV christy ablation. Clinically he appears to be stable. He has mild JVD but overall does not appear to be in significant heart failure. Continue same medications. Complete avoidance from alcohol as he continues to drink. Thank you for allowing me to participate in the care of your patient. Please feel free to contact me if you have any questions. Procedures Date of Service Date of Service: 05/24/23
--- NOTE | 2023-05-24 12:51 | P.DS_ITS ---
DS: Providers Provider Date of Service: 05/24/23 Date of admission: 05/23/23 14:18 Primary care physician: Jerri Bennett MD Consults: 05/23/23 14:17 Consult to Cardiology Routine Consulting Provider: [facility] Cardiovascular Services Reason for consultation: Needs EP study for recurrent Afib rvr DS: Diagnosis Discharge Diagnosis (1) Atrial fibrillation with RVR: Status: Acute (2) Cardiomyopathy: Status: Acute (3) CHF (congestive heart failure): Status: Acute (4) Alcohol dependence with withdrawal: Status: Acute DS: Summary Hospital Course Hospital Course: Admission note HPI A 57 years old male with PMH of Afib, CHF w reduced EF, alcohlism, HTN who presents back to the hospital with palpitations. he was discharged 3 days ago with similar presentaiton as he continues to drink alcohol with a question if he takes his medications as outpatient. reports walking on the street when he felt weak, clammy, palpitations with no reported chest pain, nausea or vomiting. He was brought by EMS to the ED where he was found in Afib rvr. started on Cardizem drip and admitted for further treatment. Hospital course # Chronic atrial fibrillation with rapid ventricular response Started on Cardizem drip and responded well as he was continued home doses of digoxin, metoprolol and Eliquis. Cardiology consult for referral to EP at [facility] regarding suitability for AV node ablation and ICD placement with an outpatient plan to follow with Dr Shelley. # Acute on Chronic systolic CHF Responded well to IV Lasix. restarted home medications # Alcohol dependence with withdrawal Advised to quit alcohol. Started Phenobarb protocol with good response. not scoring on CIWA. He made a quick response and improved faster than expected and did not need a 2nd night in the hospital with a plan to follow with Dr Baker and Dr Shelley as outpatient for arrangements of EP study. To follow with dr Baker in office To follow with dr Gaurav Shelley at [facility] for further evaluation and treatment Continue home medications as advised We advise you complete abstinence from Alcohol Time Attestation Discharge coordination time: Greater than 30 minutes Quality: Safe Use of Opioids Does Pt have an Active Cancer Diagnosis on the Problem List?: No Quality: Stroke Does the patient have a stroke diagnosis?: No Physical Exam Vital Signs: Vital Signs: Last Vital Signs Temp 97.3 F 05/24/23 11:18 Pulse 90 05/24/23 11:18 Resp 16 05/24/23 11:18 BP 96/64 05/24/23 11:18 Pulse Ox 98 05/24/23 11:18 O2 Del Method Room Air 05/24/23 11:18 BMI result Body Mass Index 30.9 Const: Other: Constitutional : Awake, interactive, not in distress Neck : Normal inspection, Supple Cardiovascular : irregular irregular , no JVP, no lower extremity edema Respiratory : good bilateral air entry, no crackles, wheezes or rhonchi Gastrointestinal: soft, lax, Normal bowel sounds, Non tender Skin : Warm, Dry Neurological : Alert & oriented x3, No focal deficit DS: Data Data Completed and Pending Completed studies during hospitalization [Text1]: Procedures Assistance with Respiratory Ventilation, Less than 24 Consecutive Hours, Continuous Positive Airway Pressure (12/22/22) Detoxification Services for Substance Abuse Treatment (04/20/23) Insertion of Endotracheal Airway into Trachea, Via Natural or Artificial Opening (11/11/21) Respiratory Ventilation, 24-96 Consecutive Hours (11/11/21) Advent of Cardiac Rhythm, Single (11/11/21) Labs on day of discharge: Laboratory Results - last 24 hr 05/23/23 05/24/23 12:37 05:57 Hold Purple Top SEE NOTE Sodium 141 137 Potassium 4.1 2.8 L D Chloride 103 98 Carbon Dioxide 26 29 Anion Gap 16 13 BUN 14 12 Creatinine 0.98 0.87 Estim Creat Clear Calc 99.8 112.5 Estimated GFR > 60 > 60 Random Glucose 96 86 Calcium 8.1 L 8.0 L Magnesium 1.6 Total Bilirubin 1.1 H AST 73 H ALT 29 Alkaline Phosphatase 196 H Troponin I High Sens 23.8 B-Natriuretic Peptide 1327 H Total Protein 6.2 L Albumin 3.5 Imaging Chest x-ray: Radiologist's impression: ITS Impressions Chest X-Ray 05/23/23 12:46 IMPRESSION: Cardiomegaly with question of mild pulmonary vascular congestion. Question of small left pleural effusion. Discharge Plan Discharge Anticipated Discharge Date/Time: 05/24/23 12:46 Patient Disposition: Home, Self-Care Discharge Diagnosis: Afib RvR Alcoholism Referrals: Jerri Bennett MD [Primary Care Provider] - 1 Week Discharge Medications: New Eliquis 5 mg Tablet 5 mg PO BID Qty: 120 2RF Continued Jardiance 10 mg tablet 10 mg PO DAILY Qty: 30 1RF furosemide 40 mg tablet 80 mg PO DAILY 30 Days Qty: 60 1RF Protocol: Hold for SBP< HOLD for SBP < : 90 Rx Instructions: OVERDUE FOR APPT. PLEASE CALL [phone] TO SCHEDULE FOLLOW UP SO WE CAN CONTINUE REFILLING YOUR MEDICATIONS. losartan 25 mg tablet 25 mg PO Q OTHER DAY 30 Days Qty: 15 1RF Hold Instructions: Resume on 03/02/23. hold until seen by pcp Rx Instructions: OVERDUE FOR APPT. PLEASE CALL [phone] TO SCHEDULE FOLLOW UP SO WE CAN CONTINUE REFILLING YOUR MEDICATIONS. folic acid 1 mg tablet 1 mg PO DAILY Qty: 90 1RF Rx Instructions: OVERDUE FOR APPT. PLEASE CALL [phone] TO SCHEDULE FOLLOW UP SO WE CAN CONTINUE REFILLING YOUR MEDICATIONS. spironolactone 25 mg tablet 25 mg PO DAILY Qty: 90 0RF Rx Instructions: OVERDUE FOR APPT. PLEASE CALL [phone] TO SCHEDULE FOLLOW UP SO WE CAN CONTINUE REFILLING YOUR MEDICATIONS. metoprolol succinate 50 mg Tablet Extended Release 24 Hr 50 mg PO DAILY Qty: 90 0RF Protocol: Hold for SBP/HR < HOLD for SBP < : 90 HOLD for HR < : 60 magnesium oxide 400 mg (241.3 mg magnesium) Tablet 400 mg PO DAILY Qty: 90 0RF digoxin 125 mcg (0.125 mg) Tablet 0.25 mg PO DAILY Qty: 60 0RF thiamine mononitrate (vit B1) [Vitamin B-1 (mononitrate)] 100 mg tablet 100 mg PO DAILY Discharge Orders: Discharge Order (Routine); Ordered 05/24/23 Ordered By: Titus Ordonez Diet: Advance to usual diet Activity on Discharge: As tolerated Stand Alone Forms: Patient Portal Discharge page, Work/School Release Care Plan Goals: Read below Health Concerns: Read below Plan of Treatment: Read below Assessment: To follow with dr Baker in office To follow with dr Gaurav Shelley at [facility] for further evaluation and treatment Continue home medications as advised We advise you complete abstinence from Alcohol
--- NOTE | 2023-05-24 13:21 | MHC.CM.PN ---
PT DISCHARGED HOME SELF CARE PER REQUEST, PT WILL TAKE [facility] SHUTTLE AT 1:30PM, NSG AWARE.
== END 2023-05-24 13:45 | disposition home or self-care (01) | DRG 201 ==
LOC: HO.ED 13:24 → HO.EDOVER 14:23 → HO.IMC 19:23
PROVIDERS: Admitting Provider Student in an Organized Health Care Education/Training Program; Emergency Provider Emergency Medicine; PCP Internal Medicine; Visit Provider Student in an Organized Health Care Education/Training Program
DX: I48.20 Chronic atrial fibrillation, unspecified (principal); I50.23 Acute on chronic systolic (congestive) heart failure; I42.9 Cardiomyopathy, unspecified; K70.0 Alcoholic fatty liver; D69.59 Other secondary thrombocytopenia; I11.0 Hypertensive heart disease with heart failure; F10.239 Alcohol dependence with withdrawal, unspecified; Z79.899 Other long term (current) drug therapy
CPT/HCPCS: 36415; 71045; 80048; 80053; 83735; 83880; 84484; 85025; 93005; 99285; J1650; J1940; J2560; J3475; J3480

== ENCOUNTER → 2023-05-23 14:18 | Outpatient (BNV) | payer OTHER, SELFPAY | PROVIDERS: Admitting Provider Student in an Organized Health Care Education/Training Program; Emergency Provider Emergency Medicine; Visit Provider Student in an Organized Health Care Education/Training Program | DX: I48.91 Unspecified atrial fibrillation (principal); I42.9 Cardiomyopathy, unspecified; I50.9 Heart failure, unspecified; F10.239 Alcohol dependence with withdrawal, unspecified | CPT/HCPCS: 99223; 99239 ==

== ENCOUNTER → 2023-05-23 14:18 | Outpatient (BNV) | payer OTHER, SELFPAY | PROVIDERS: Admitting Provider Student in an Organized Health Care Education/Training Program; Emergency Provider Emergency Medicine; PCP Internal Medicine; Visit Provider Internal Medicine Cardiovascular Disease | DX: F10.20 Alcohol dependence, uncomplicated (principal); I48.91 Unspecified atrial fibrillation; I42.9 Cardiomyopathy, unspecified | CPT/HCPCS: 99222 ==

== ENCOUNTER 2023-05-25 05:55 | Emergency (ER) | payer OTHER, SELFPAY ==
--- NOTE | 2023-05-25 | ECG_ITS ---
Test Reason : AFIB Blood Pressure : / mmHG Vent. Rate : 121 BPM Atrial Rate : 000 BPM P-R Int : 000 ms QRS Dur : 110 ms QT Int : 280 ms P-R-T Axes : 000 058 239 degrees QTc Int : 397 ms Atrial fibrillation with rapid ventricular response with premature ventricular or aberrantly conducted complexes Incomplete left bundle branch block Minimal voltage criteria for LVH, may be normal variant ( Myles product ) ST & T wave abnormality, consider inferolateral ischemia Abnormal ECG When compared with ECG of 23-MAY-2023 12:25, No significant change was found Referred By: Generic ED Physician Electronically Signed By:KASEY MONTELONGO MD
[2023-05-25 06:07] VITALS: BP 119/82; PULSE 145; PULSE 82; RESP 18; TEMP 36.6; O2SAT 96; BMI 28.7
[2023-05-25 06:30] VITALS: PULSE 122
[2023-05-25 06:31] LABS: Basophils Absolute Auto 0.1 X10*3/uL (0.0-0.2); Basophils Percent Auto 0.9 % (0-2); Eosinophils Percent Auto 0.7 % (0-4); Hematocrit 36.6 % (42.0-52.0); Hemoglobin 11.9 g/dl (14.0-18.0); Imm Gran Abs Auto 0.03 X10*3/uL (0.00-0.03); Imm Gran Pct Auto 0.5 % (0.0-0.4); Lymphocytes Absolute Auto 0.7 X10*3/uL (1.2-4.9); Lymphocytes Percent Auto 12.3 % (20-40); MANUAL DIFF FLAG NO; Mean Corpuscular HGB Conc 32.5 g/dl (31.0-36.0); Mean Corpuscular Hemoglobin 35.8 pg (27.0-33.0); Mean Platelet Volume 10.8 fL (9.4-12.4); Monocytes Absolute Auto 0.8 X10*3/uL (0.1-1.2); Monocytes Percent Auto 14.1 % (2-11); Neutrophils Absolute Auto 4.1 x10*3/uL (2.0-8.3); Neutrophils Percent Auto 71.5 % (45-73); Platelet Count 113 X10*3/uL (160-400); Red Blood Count 3.32 X10*6/uL (4.60-5.80); Red Cell Distribution Width 15.5 % (11.0-16.0); White Blood Count 5.8 X10*3/uL (4.8-10.8)
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
[2023-05-25 06:33] LABS: Mean Corpuscular Volume 110.2 fL (80.0-98.0)
--- NOTE | 2023-05-25 06:37 | ED_ITS ---
HPI - General Adult General Chief complaint: General Medical Stated complaint: HYPOTHERMIA Time Seen by Provider: 05/25/23 06:37 Source: patient, EMS, RN notes reviewed and old records reviewed Mode of arrival: EMS Limitations: no limitations History of Present Illness HPI narrative: 57 year old male with pmhx significant for afib, CHF wih reduced EF, alcoholism, alcholic hepatitis, HTN presents to the ED today for evaluation of being cold after found walking around [place] at 0530 this morning. Per patient, he could not find where he parked his car. Spoke with Carroll LEMON who told him that his car was located in [place]. Patient states ?I did not want to wait? and began walking from [place] to [place] at 3 in the morning. Called EMS when he arrived in [place] as he felt cold and wanted to be evaluated. He currently has no complaints in ED. Denies illicit drug use or recent EtOH consumption. Denies fever, headache, dizziness, neck or back pain, chest pain, palpitations, shortness of breath, nausea/vomiting, abdominal pain, lower extremity pain or swelling. Patient recently admitted to [facility] for AFib with RVR along with acute EtOH withdrawal, discharged yesterday. Unknown compliance with medications at home. Related Data Home Medications Medication Instructions Recorded Confirmed thiamine mononitrate (vit B1) 100 100 mg PO DAILY 09/16/22 05/23/23 mg tablet (Vitamin B-1 (mononitrate)) Previous Rx's Medication Instructions Recorded empagliflozin 10 mg tablet 10 mg PO DAILY #30 tabs 11/18/22 (Jardiance) magnesium oxide 400 mg (241.3 mg 400 mg PO DAILY #90 tabs 03/13/23 magnesium) tablet metoprolol succinate 50 mg 50 mg PO DAILY #90 tabs 03/13/23 tablet,extended release 24 hr digoxin 125 mcg (0.125 mg) tablet 0.25 mg (2 x 125 mcg (0.125 mg)) 03/14/23 PO DAILY #60 tabs furosemide 40 mg tablet 80 mg PO DAILY 30 days #60 tabs 04/13/23 losartan 25 mg tablet 25 mg PO Q OTHER DAY 30 days #15 04/13/23 tabs folic acid 1 mg tablet 1 mg PO DAILY #90 tabs 04/14/23 spironolactone 25 mg tablet 25 mg PO DAILY #90 tabs 04/14/23 apixaban 5 mg tablet (Eliquis) 5 mg PO BID #120 tabs 05/24/23 Allergies Allergy/AdvReac Type Severity Reaction Status Date / Time No Known Allergies Allergy Verified 03/11/23 08:50 [No Known Allergies*] Review of Systems 2 Review of Systems: Constitutional: No fever, chills, fatigue, night sweats, weight changes ENT/Mouth: No ear pain, hearing loss, nasal congestion, sinus pain, rhinorrhea, sore throat Eyes: No eye pain, swelling, redness, vision changes, discharge Cardio: No chest pain, palpitations, DICKINSON, orthopnea, peripheral edema Pulm: No SOB, cough, sputum, wheezing, dyspnea, hemoptysis GI: No nausea, vomiting, hematemesis, abdominal pain, diarrhea, constipation, hematochezia, melena : No irregular bleeding, dysuria, frequency, urgency, hesitancy, hematuria, flank pain MSK: No back pain, neck pain, joint pain, myalgias Skin: No lesions, rashes Neuro: No weakness, numbness, paresthesias, LOC, dizziness, headache All other systems reviewed and are negative. [facility] Past Medical History Attestation statement: The following information was validated with the patient. Source: old records reviewed and nursing notes reviewed Medical History Alcohol dependence with withdrawal Cardiomyopathy Chronic HFrEF (heart failure with reduced ejection fraction) Atrial fibrillation with rapid ventricular response Alcoholic hepatitis HTN (hypertension) Surgical History No pertinent past surgical history Family History Family History Father CAD (coronary artery disease) Mother Atrial fibrillation Social History Household Members: None Housing: Apartment Do you presently have visiting nurse or other home services: No Unable to assess alcohol history related to: Unable to respond Alcohol intake: current Alcohol intake frequency: holidays/special occasions only Alcohol type: hard liquor Patient Tobacco Use Status: Never used Tobacco Smoked in Last 30 Days: No Second Hand Smoke Exposure: No Use of substances other than those prescribed or required for medical reasons: No Advance Directives: Yes Advance Directives on File: Yes Advance Directives Date on File: 02/12/23 service: No Current occupational status: unemployed Physical Exam ED Vital Signs: Vital Signs - 24 hr 05/25/23 06:07 05/25/23 06:30 05/25/23 07:28 Temperature 97.8 F Pulse Rate 145 H 122 H 114 H Respiratory Rate 18 20 Blood Pressure 119/82 110/80 Pulse Oximetry 96 98 Oxygen Delivery Method Room Air Room Air 05/25/23 08:53 05/25/23 09:19 Temperature 98.7 F Pulse Rate 100 100 Respiratory Rate 15 Blood Pressure 106/65 111/79 Pulse Oximetry 96 Oxygen Delivery Method Room Air BMI result Body Mass Index 28.7 VS with tachycardia, otherwise wnl. Const General: cooperative, comfortable, no acute distress, alert and awake; No diaphoretic Orientation/consciousness: patient oriented x3 Limitations: no limitations HENMT Head: Yes normal to inspection Ears: hearing grossly normal bilaterally Eyes General: appearance normal, both eyes and all related structures Conjunctivae: conjunctivae normal Sclerae: sclerae normal Pupils: Equal, round and reactive pupils present Neck Neck: Yes normal visual inspection and Yes no JVD Resp Effort & Inspection: normal respiratory effort, able to speak in complete sentences and no respiratory distress Auscultation: clear to auscultation bilaterally Cardio Jugular venous distension: no JVD Rate: tachycardic Rhythm: abnormal rhythm irregularly irregular Peripheral pulses: Peripheral pulses 2+ throughout, popliteal pulses present and posterior tibial pulses present GI Inspection: Yes normal to inspection Palpation (GI): Soft to palpation and nontender Skin General skin exam: no rashes or lesions noted and no mottling Neuro General: patient oriented x3, gait normal and moves all extremities Cranial nerves: Yes Equal, round and reactive pupils present Extrem General: Yes normal to inspection and Yes full ROM Course Course Course Narrative: 0780-- EKG showing AFib with RVR > pt denies chest pain, palpitations, shortness of breath. States he took his metoprolol and digoxin yesterday. Diltiazem 15 IV ordered for rate control. Placed on continuous head of academic technology. Attending physician Dr. Irvin aware. 08-- HR has decreased to the low 100s. As patient has HFrEF, I expect patient to be somewhat tachycardic to compensate for low SV. Will continue to monitor. If HR remains stable, I feel comfortable discharging patient as long as workup is unremarkable. Discussed case with my attending physician, Dr. Irvin who agrees with plan. >> CBC showing stable H&H, upward trending over the last few days. No leukocytosis. Ethanol undetectable. Chemistry shows elevated liver enzymes secondary to chronic alcoholism, stable. Troponin slightly elevated to 22.5 likely secondary to AFib. Chronically elevated when compared to priors given patient's history of atrial fibrillation and HF. Will repeat. > on re-evaluation, patient is nontoxic appearing and in NAD. Continues to deny any physical complaints. 0945-- on re-evaluation, patient is still asymptomatic. HR has remained in the high 90s, low 100s, still in atrial fibrillation. Second troponin is WNL. BMP noted to be 2600 however this is expected with his HFrEF and subsequent increased pulmonary pressure. I do not believe his is in congestive heart failure at this time. He has not required a 2nd dose of diltiazem. I feel comfortable discharging patient home. I discussed lab results, EKG and disposition with my attending physician who agrees with plan. Discussed disposition with patient who is in agreement and asking if he can go home. Patient tells me that he plans on taking a shuttle home. Discussed strict return precautions. All questions answered at this time. Patient is agreeable disposition stable for discharge. Medications Administered Discontinued Medications Generic Name Dose Route Start Last Admin Trade Name Freq PRN Reason Stop Dose Admin Diltiazem HCl 15 mg 05/25/23 07:24 05/25/23 07:39 Diltiazem Hcl 50 Mg/10 Ml Vial IVPUSH 05/25/23 07:25 15 mg ONCE ONE Administration Medical Decision Making Medical Decision Making MDM Narrative: 57 year old male with pmhx significant for afib, CHF wih reduced EF, alcoholism, alcholic hepatitis, HTN presents to the ED today for evaluation of being cold after found walking around [place] at 0530 this morning. EKG showing atrial fibrillation with RVR. Patient is nontoxic appearing, in NAD. Not diaphoretic. No JVD. Tachycardia with irregularly irregular rhythm, pulses 2+ throughout. Lungs CTA b/l. Neuro exam nonfocal. Cerebellum intact. Ambulating with steady gait. Physical exam essentially unremarkable. Clinical concern for atrial fibrillation, arrhythmia, a flutter, ACS, heart failure. Unlikely hypothermia, CVA/TIA. Plan for ekg, labs, trop, and rate control. Differential Diagnosis Differential Diagnoses: The differential diagnosis associated with the presentation includes As above. Admission/Observation Consideration of admission/observation: Escalation of care including admission/observation considered In this patient showing afib with rvr, admission was considered. Lab Data MDM Lab Attestation statement: I reviewed the patient's lab results. As above. 05/25/23 06:26 05/25/23 06:26 Labs: Lab Results 05/25/23 05/25/23 Range/Units 06:26 08:52 WBC 5.8 (4.8-10.8) X10*3/uL RBC 3.32 L (4.60-5.80) X10*6/uL Hgb 11.9 L (14.0-18.0) g/dl Hct 36.6 L (42.0-52.0) % MCV 110.2 H (80.0-98.0) fL MCH 35.8 H (27.0-33.0) pg MCHC 32.5 (31.0-36.0) g/dl RDW 15.5 (11.0-16.0) % Plt Count 113 L (160-400) X10*3/uL MPV 10.8 (9.4-12.4) fL Immature Gran % (Auto) 0.5 H (0.0-0.4) % Neut % (Auto) 71.5 (45-73) % Lymph % (Auto) 12.3 L (20-40) % Ness % (Auto) 14.1 H (2-11) % Eos % (Auto) 0.7 (0-4) % Baso % (Auto) 0.9 (0-2) % Lymph # (Auto) 0.7 L (1.2-4.9) X10*3/uL Ness # (Auto) 0.8 (0.1-1.2) X10*3/uL Eos # (Auto) 0.0 (0.0-0.4) X10*3/uL Baso # (Auto) 0.1 (0.0-0.2) X10*3/uL Abs Immat Gran (auto) 0.03 (0.00-0.03) X10*3/uL Absolute Neuts (auto) 4.1 (2.0-8.3) x10*3/uL Absolute Nucleated RBC 0.000 (0.0-0.012) X10*3/uL Nucleated RBC % (auto) 0.0 (0.0-0.2) /100WBC PT 14.4 H (11.1-13.3) SEC INR 1.2 H (0.9-1.1) Sodium 136 (135-145) mmol/L Potassium 3.7 D (3.3-5.1) mmol/L Chloride 100 (96-108) mmol/L Carbon Dioxide 26 (22-29) mmol/L Anion Gap 14 (12-20) BUN 13 (9-16) mg/dL Creatinine 0.95 (0.5-1.4) mg/dL Estim Creat Clear Calc 99.5 Estimated GFR > 60 Random Glucose 131 H (60-115) mg/dL Calcium 8.8 D (8.4-10.2) mg/dL Total Bilirubin 1.8 H (0.0-1.0) mg/dL AST 64 H (5-37) U/L ALT 29 (0-40) U/L Alkaline Phosphatase 185 H (39-117) U/L Troponin I High Sens 22.5 22.9 (<3.5-35.0) ng/L B-Natriuretic Peptide 2633 H (<100) pg/mL Total Protein 6.6 (6.5-8.0) g/dL Albumin 3.7 (3.5-5.0) g/dL Ethyl Alcohol < 10 mg/dL Independent Interpretation I performed an independent interpretation of an: EKG Interpretation: EKG showing atrial fibrillation with rapid ventricular response and premature ventricular complexes, incomplete left bundle-branch block, ventricular rate of 121, atrial rate undetectable, QT of 280. Independent Historian Clinical information obtained from an independent historian. History obtained from or confirmed by: EMS External Record Review External record reviewed: Inpatient record, Office record, Outpatient record, Prior outpatient labs, Prior outpatient radiology, Primary care record and Outside ED record Prescription Management I considered prescription management with: Other (Calcium channel joan) Chronic Conditions Patient?s care impacted by: Hypertension and Other (Atrial fibrillation with RVR, heart failure with reduced ejection fraction, alcoholism) Social Determinants Patient?s care significantly limited by Social Determinants of Health including: Problems related to employment and Other Social Determinant of Health Critical Care Time Critical Care Time Critical Care Time: Yes Total Critical Care Time: 31 Attestation: Critical care time in the amount of 31 minutes has been provided to the patient in terms of direct patient care, frequent reevaluation, review and interpretation of medical data and results, and management of potentially life- threatening conditions. This is all outside of any medical procedures. Discharge Plan Discharge Clinical Impression: Atrial fibrillation with rapid ventricular response, Heart failure with reduced ejection fraction Patient Disposition: Home, Self-Care Instructions: A-fib (Atrial Fibrillation) (ED) Additional Instructions: Your labs today were within normal limits. Your EKG showed atrial fibrillation. You were given a dose of diltiazem in the emergency department today which brought your heart rate down. You are still in atrial fibrillation however are not exhibiting any symptoms. Continue taking your metoprolol, digoxin and Eliquis at home. 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 Do not drink alcohol. This can worsen your atrial fibrillation and even kill you. If you develop symptoms of chest pain, dizziness, palpitations, shortness of breath, return to the emergency department. In the case of an emergency call 911. Prescriptions: No Action Jardiance 10 mg tablet 10 mg PO DAILY Qty: 30 1RF furosemide 40 mg tablet 80 mg PO DAILY 30 Days Qty: 60 1RF Protocol: Hold for SBP< HOLD for SBP < : 90 Rx Instructions: OVERDUE FOR APPT. PLEASE CALL [phone] TO SCHEDULE FOLLOW UP SO WE CAN CONTINUE REFILLING YOUR MEDICATIONS. losartan 25 mg tablet 25 mg PO Q OTHER DAY 30 Days Qty: 15 1RF Hold Instructions: Resume on 03/02/23. hold until seen by pcp Rx Instructions: OVERDUE FOR APPT. PLEASE CALL [phone] TO SCHEDULE FOLLOW UP SO WE CAN CONTINUE REFILLING YOUR MEDICATIONS. folic acid 1 mg tablet 1 mg PO DAILY Qty: 90 1RF Rx Instructions: OVERDUE FOR APPT. PLEASE CALL [phone] TO SCHEDULE FOLLOW UP SO WE CAN CONTINUE REFILLING YOUR MEDICATIONS. spironolactone 25 mg tablet 25 mg PO DAILY Qty: 90 0RF Rx Instructions: OVERDUE FOR APPT. PLEASE CALL [phone] TO SCHEDULE FOLLOW UP SO WE CAN CONTINUE REFILLING YOUR MEDICATIONS. metoprolol succinate 50 mg Tablet Extended Release 24 Hr 50 mg PO DAILY Qty: 90 0RF Protocol: Hold for SBP/HR < HOLD for SBP < : 90 HOLD for HR < : 60 magnesium oxide 400 mg (241.3 mg magnesium) Tablet 400 mg PO DAILY Qty: 90 0RF digoxin 125 mcg (0.125 mg) Tablet 0.25 mg PO DAILY Qty: 60 0RF Eliquis 5 mg Tablet 5 mg PO BID Qty: 120 2RF thiamine mononitrate (vit B1) [Vitamin B-1 (mononitrate)] 100 mg tablet 100 mg PO DAILY Referrals: [facility] Cardiovascular Services [Provider Group] Interventions: ED Discharge Assessment Last Done: 05/25/23 10:20 Discharge Date/Time: 05/25/23 10:21
[2023-05-25 06:38] LABS: INTERNATIONAL NORM RATIO 1.2 (0.9-1.1); Prothrombin Time 14.4 SEC (11.1-13.3)
[2023-05-25 06:45] LABS: Alanine Aminotransferase 29 U/L (0-40); Albumin Level 3.7 g/dL (3.5-5.0); Alkaline Phosphatase 185 U/L (39-117); Anion Gap 14 (12-20); Aspartate Amino Transferase 64 U/L (5-37); Bilirubin Total 1.8 mg/dL (0.0-1.0); Blood Urea Nitrogen 13 mg/dL (9-16); Calcium 8.8 mg/dL (8.4-10.2); Carbon Dioxide 26 mmol/L (22-29); Chloride 100 mmol/L (96-108); Creatinine Clr Calc Pharmacy 99.5; Estimated Glomerular Filt Rate > 60; Glucose Random 131 mg/dL (60-115); Potassium 3.7 mmol/L (3.3-5.1); Sodium 136 mmol/L (135-145); Total Protein 6.6 g/dL (6.5-8.0)
[2023-05-25 06:49] LABS: Troponin-I High Sensitivity 22.5 ng/L (<3.5-35.0)
[2023-05-25 07:28] VITALS: BP 110/80; PULSE 114; RESP 20; O2SAT 98
--- NOTE | 2023-05-25 07:29 | PC.NURSE ---
Pt alert and oriented, skin pwd. a fib on tele. States attempting to walk to [place] from [place] this AM in which an ambulance was called ?[facility] per [facility]. Pt denies any complaints at this time. HR 110-120s. Breathing easy. Awaiting ED provider damari.
[2023-05-25] MEDS: dilTIAZem HCL 50 MG/10 ML VIAL 15 MG IVPUSH (07:39)
[2023-05-25 07:53] LABS: Ethanol < 10 mg/dL
[2023-05-25 08:53] VITALS: BP 106/65; PULSE 100; RESP 15; TEMP 37.1; O2SAT 96
[2023-05-25 09:19] VITALS: BP 111/79; PULSE 100
[2023-05-25 09:20] LABS: B Type Natriuretic Peptide 2633 pg/mL (<100); Troponin-I High Sensitivity 22.9 ng/L (<3.5-35.0)
== END 2023-05-25 10:21 | disposition home or self-care (01) ==
PROVIDERS: Physician Assistant Medical; Emergency Provider Emergency Medicine Emergency Medical Services; PCP Internal Medicine
DX: I48.20 Chronic atrial fibrillation, unspecified (principal); I50.20 Unspecified systolic (congestive) heart failure; R06.02 Shortness of breath; F10.239 Alcohol dependence with withdrawal, unspecified; Y90.0 Blood alcohol level of less than 20 mg/100 ml; Z79.899 Other long term (current) drug therapy
CPT/HCPCS: 36415; 80053; 80307; 83880; 84484; 85025; 85610; 93005; 96374; 99284; 99285

== ENCOUNTER 2023-06-05 22:59 | Inpatient (IN) | payer OTHER, SELFPAY ==
--- NOTE | 2023-06-05 | ECG_ITS ---
Test Reason : AFIB Blood Pressure : / mmHG Vent. Rate : 137 BPM Atrial Rate : 000 BPM P-R Int : 000 ms QRS Dur : 110 ms QT Int : 320 ms P-R-T Axes : 000 020 157 degrees QTc Int : 483 ms Atrial fibrillation with rapid ventricular response with premature ventricular or aberrantly conducted complexes Anterior infarct , age undetermined Abnormal ECG When compared with ECG of 25-MAY-2023 06:11, Incomplete left bundle branch block is no longer Present Anterior infarct is now Present Nonspecific T wave abnormality no longer evident in Inferior leads Referred By: Generic ED Physician Electronically Signed By:BJ FLORES MD
--- NOTE | ~2023-06-05 | XR_ITS ---
EXAMINATION: XR CHEST CLINICAL INFORMATION: CHF COMPARISON: 05/23/2023 TECHNIQUE: Frontal view of the chest was obtained. FINDINGS: Lungs are mildly hypoinflated. No focal consolidation is seen. No evidence of pneumothorax, significant pleural effusion, or overt pulmonary edema. Cardiac silhouette remains enlarged. No acute osseous findings are seen. XR/XR chest 1V IMPRESSION: No overt edema. Cardiac silhouette remains enlarged.
[2023-06-05 23:07] VITALS: BP 130/80; O2SAT 98; BMI 31.9
[2023-06-05 23:24] LABS: MANUAL DIFF FLAG NO
[2023-06-05 23:26] LABS: Basophils Absolute Auto 0.1 X10*3/uL (0.0-0.2); Eosinophils Absolute Auto 0.1 X10*3/uL (0.0-0.4); Eosinophils Percent Auto 1.6 % (0-4); Hematocrit 38.9 % (42.0-52.0); Hemoglobin 12.6 g/dl (14.0-18.0); Imm Gran Abs Auto 0.02 X10*3/uL (0.00-0.03); Imm Gran Pct Auto 0.4 % (0.0-0.4); Lymphocytes Absolute Auto 1.5 X10*3/uL (1.2-4.9); Lymphocytes Percent Auto 30.2 % (20-40); Mean Corpuscular HGB Conc 32.4 g/dl (31.0-36.0); Mean Corpuscular Hemoglobin 35.8 pg (27.0-33.0); Mean Platelet Volume 10.1 fL (9.4-12.4); Monocytes Absolute Auto 0.5 X10*3/uL (0.1-1.2); Monocytes Percent Auto 10.1 % (2-11); Neutrophils Absolute Auto 2.8 x10*3/uL (2.0-8.3); Neutrophils Percent Auto 56.7 % (45-73); Platelet Count 170 X10*3/uL (160-400); Red Blood Count 3.52 X10*6/uL (4.60-5.80); Red Cell Distribution Width 15.6 % (11.0-16.0); White Blood Count 4.9 X10*3/uL (4.8-10.8)
--- NOTE | 2023-06-05 23:26 | ED_ITS ---
HPI - Arrhythmia/Palpitations General Chief Complaint: Arrhythmia/Palpitations Stated Complaint: Difficuilty Breathing Time Seen by Provider: 06/05/23 23:26 Source: patient Mode of arrival: EMS Limitations: no limitations History of Present Illness HPI narrative: Patient 57 years old with history of alcoholic cardiomyopathy with severe LV dysfunction with recurrent atrial fibrillation with rapid ventricular response with history of pulmonary embolism and alcoholism on Eliquis and beta-joan been here multiple times for noncompliance to medication whenever he drinks and get short of breath and tachycardia. Again for last few days patient taking his medications and been drinking heavy to EMS patient has had 1 week in the ER says for 3 days he has not taken his medication been drinking today while in the bar had few drinks felt short of breath and dizzy desaturated to 89% by EMS now on 2 L saturating 95% on arrival patient's heart rate was 137 beats AFib Related Data Home Medications Medication Instructions Recorded Confirmed thiamine mononitrate (vit B1) 100 100 mg PO DAILY 09/16/22 05/23/23 mg tablet (Vitamin B-1 (mononitrate)) Previous Rx's Medication Instructions Recorded empagliflozin 10 mg tablet 10 mg PO DAILY #30 tabs 11/18/22 (Jardiance) magnesium oxide 400 mg (241.3 mg 400 mg PO DAILY #90 tabs 03/13/23 magnesium) tablet metoprolol succinate 50 mg 50 mg PO DAILY #90 tabs 03/13/23 tablet,extended release 24 hr digoxin 125 mcg (0.125 mg) tablet 0.25 mg (2 x 125 mcg (0.125 mg)) 03/14/23 PO DAILY #60 tabs furosemide 40 mg tablet 80 mg PO DAILY 30 days #60 tabs 04/13/23 losartan 25 mg tablet 25 mg PO Q OTHER DAY 30 days #15 04/13/23 tabs folic acid 1 mg tablet 1 mg PO DAILY #90 tabs 04/14/23 spironolactone 25 mg tablet 25 mg PO DAILY #90 tabs 04/14/23 apixaban 5 mg tablet (Eliquis) 5 mg PO BID #120 tabs 05/24/23 Allergies Allergy/AdvReac Type Severity Reaction Status Date / Time No Known Allergies Allergy Verified 03/11/23 08:50 [No Known Allergies*] Review of Systems 2 Review of Systems: Yes all other systems are reviewed and are negative PMFSH Past Medical History Medical History Alcoholism CHF (congestive heart failure) Alcohol dependence with withdrawal Cardiomyopathy Chronic HFrEF (heart failure with reduced ejection fraction) Atrial fibrillation with rapid ventricular response Alcoholic hepatitis HTN (hypertension) Surgical History No pertinent past surgical history Family History Family History Father CAD (coronary artery disease) Mother Atrial fibrillation Social History Social History Household Members: None Housing: Apartment Do you presently have visiting nurse or other home services: No Unable to assess alcohol history related to: Unable to respond Alcohol intake: current Alcohol intake frequency: holidays/special occasions only Alcohol type: hard liquor Comment: 1:1 sitter at bedside Patient Tobacco Use Status: Never used Tobacco Second Hand Smoke Exposure: No Advance Directives: Yes Advance Directives on File: Yes Advance Directives Date on File: 02/12/23 service: No Current occupational status: unemployed Physical Exam 2 Vital Signs: Vital Signs: Last Vital Signs Temp 97.7 F 06/05/23 23:30 Pulse 89 06/06/23 01:22 Resp 17 06/06/23 01:22 BP 107/75 06/06/23 01:22 Pulse Ox 97 06/06/23 01:22 O2 Del Method Nasal Cannula 06/06/23 01:22 O2 Flow Rate 4 06/06/23 00:53 BMI result Body Mass Index 31.9 Appearance: Alert. Oriented X3. No acute distress. etoh+ Eyes: PERRLA, No Nystagmus ENT: Pharynx normal. Oral Mucosa moist Neck: Normal inspection. Neck supple. CVS: Irregularly irregular tachycardic no murmur Pulses normal. Respiratory: No respiratory distress. Equal air entry bilateral, bilateral basal rales Abdomen: Soft and nontender. Bowel sounds are present, no mass palpable, no CVA tenderness Skin: Skin warm and dry. Normal skin color. Normal skin turgor. Extremities: 2+ lower extremity edema. No calf tenderness Neuro: Oriented X 3. No motor deficit. No sensory deficit.No cerebellar signs , cranial nerves II-XII intact Medications Administered Discontinued Medications Generic Name Dose Route Start Last Admin Trade Name Shilo PRN Reason Stop Dose Admin Apixaban 5 mg 06/05/23 23:45 06/05/23 23:48 Apixaban 5 Mg Tablet PO 06/05/23 23:46 5 mg ONCE ONE Administration Diltiazem HCl 20 mg 06/05/23 23:26 06/05/23 23:37 Diltiazem Hcl 50 Mg/10 Ml Vial IVPUSH 06/05/23 23:27 20 mg STAT STA Administration Sodium Chloride 1,000 mls @ 999 mls/hr 06/05/23 23:26 06/06/23 00:44 Ns IV 06/06/23 00:26 Infused .Q1H1M ONE Infusion Magnesium Sulfate 2 gm in 50 mls @ 150 mls/hr 06/05/23 23:48 06/06/23 00:43 Magnesium Sulfate/H2o IV 06/06/23 00:07 Infused ONCE ONE Infusion Metoprolol Tartrate 5 mg 06/05/23 23:48 06/06/23 00:02 Metoprolol Tartrate 5 Mg/5 Ml Vial IVPUSH 06/05/23 23:49 5 mg ONCE ONE Administration Medical Decision Making Medical Decision Making MDM Narrative: Patient heart rate improved after IV Cardizem and IV metoprolol still in AFib blood pressure decreased to 86/56 give some fluids chest x-ray negative for florid CHF patient is saturating 94% on 2 L feeling much better at this time is still intoxicated and sleepy will keep patient in the ER for now and plan to discharge in the morning if stable patient blood pressure improved to 107/75 pulse rate now 89 saturating on 2 L 95% Differential Diagnosis Differential Diagnoses: The differential diagnosis associated with the presentation includes AFib with RVR/CHF/ACS Admission/Observation Consideration of admission/observation: Escalation of care including admission/observation considered Lab Data [facility] Lab Attestation statement: I reviewed the patient's lab results. 06/05/23 23:17 06/05/23 23:17 Labs: Lab Results 06/05/23 Range/Units 23:17 WBC 4.9 (4.8-10.8) X10*3/uL RBC 3.52 L (4.60-5.80) X10*6/uL Hgb 12.6 L (14.0-18.0) g/dl Hct 38.9 L (42.0-52.0) % MCV 110.5 H (80.0-98.0) fL MCH 35.8 H (27.0-33.0) pg MCHC 32.4 (31.0-36.0) g/dl RDW 15.6 (11.0-16.0) % Plt Count 170 D (160-400) X10*3/uL MPV 10.1 (9.4-12.4) fL Immature Gran % (Auto) 0.4 (0.0-0.4) % Neut % (Auto) 56.7 (45-73) % Lymph % (Auto) 30.2 (20-40) % Dewitt % (Auto) 10.1 (2-11) % Eos % (Auto) 1.6 (0-4) % Baso % (Auto) 1.0 (0-2) % Lymph # (Auto) 1.5 (1.2-4.9) X10*3/uL Dewitt # (Auto) 0.5 (0.1-1.2) X10*3/uL Eos # (Auto) 0.1 (0.0-0.4) X10*3/uL Baso # (Auto) 0.1 (0.0-0.2) X10*3/uL Abs Immat Gran (auto) 0.02 (0.00-0.03) X10*3/uL Absolute Neuts (auto) 2.8 (2.0-8.3) x10*3/uL Absolute Nucleated RBC 0.000 (0.0-0.012) X10*3/uL Nucleated RBC % (auto) 0.0 (0.0-0.2) /100WBC APTT 30.0 (26.0-36.4) SEC Sodium 141 (135-145) mmol/L Potassium 3.9 (3.3-5.1) mmol/L Chloride 108 (96-108) mmol/L Carbon Dioxide 22 (22-29) mmol/L Anion Gap 15 (12-20) BUN 18 H (9-16) mg/dL Creatinine 1.29 (0.5-1.4) mg/dL Estim Creat Clear Calc 77.0 Estimated GFR 58 Random Glucose 127 H (60-115) mg/dL Calcium 9.1 (8.4-10.2) mg/dL Magnesium 1.8 (1.6-2.6) mg/dL Total Bilirubin 0.6 (0.0-1.0) mg/dL AST 29 (5-37) U/L ALT 18 (0-40) U/L Alkaline Phosphatase 196 H (39-117) U/L Troponin I High Sens 22.7 (<3.5-35.0) ng/L B-Natriuretic Peptide 1694 H (<100) pg/mL Total Protein 7.3 (6.5-8.0) g/dL Albumin 4.0 (3.5-5.0) g/dL Ethyl Alcohol 292 mg/dL Independent Interpretation I performed an independent interpretation of an: EKG and Plain X-Ray Interpretation: Atrial fibrillation with rapid ventricular rate heart rate of 137 beats per minute poor progression of R-wave no acute ST-T changes no acute ischemia Radiology Impression Discussion of test interpretation with radiology: I have reviewed the radiologist's reading. External Record Review External record reviewed: Inpatient record Critical Care Time Critical Care Time Critical Care Time: Yes Total Critical Care Time: 45 Attestation: The patient was critically ill with a high probability of imminent or life threatening deterioration. I spent greater than 50 minutes of discontinuous time evaluating the patient,delivering critical care at the bedside, discussing and evaluating pertinent data with consultants. Critical care time does not include time spent performing separately billable procedures or teaching. Total time spent performing critical care was 45 minutes. Discharge Plan Discharge Clinical Impression: Atrial fibrillation with rapid ventricular response, Alcohol intoxication, Chronic CHF Patient Disposition: Still a Patient Instructions: Heart Failure (ED), A-fib (Atrial Fibrillation) (ED), Abuse of Alcohol (ED) Additional Instructions: Continue taking medications as prescribed by her customer loyalty representative Stop drinking alcohol Follow with customer loyalty representative and detox Prescriptions: No Action Jardiance 10 mg tablet 10 mg PO DAILY Qty: 30 1RF furosemide 40 mg tablet 80 mg PO DAILY 30 Days Qty: 60 1RF Protocol: Hold for SBP< HOLD for SBP < : 90 Rx Instructions: OVERDUE FOR APPT. PLEASE CALL [phone] TO SCHEDULE FOLLOW UP SO WE CAN CONTINUE REFILLING YOUR MEDICATIONS. losartan 25 mg tablet 25 mg PO Q OTHER DAY 30 Days Qty: 15 1RF Hold Instructions: Resume on 03/02/23. hold until seen by pcp Rx Instructions: OVERDUE FOR APPT. PLEASE CALL [phone] TO SCHEDULE FOLLOW UP SO WE CAN CONTINUE REFILLING YOUR MEDICATIONS. folic acid 1 mg tablet 1 mg PO DAILY Qty: 90 1RF Rx Instructions: OVERDUE FOR APPT. PLEASE CALL [phone] TO SCHEDULE FOLLOW UP SO WE CAN CONTINUE REFILLING YOUR MEDICATIONS. spironolactone 25 mg tablet 25 mg PO DAILY Qty: 90 0RF Rx Instructions: OVERDUE FOR APPT. PLEASE CALL [phone] TO SCHEDULE FOLLOW UP SO WE CAN CONTINUE REFILLING YOUR MEDICATIONS. metoprolol succinate 50 mg Tablet Extended Release 24 Hr 50 mg PO DAILY Qty: 90 0RF Protocol: Hold for SBP/HR < HOLD for SBP < : 90 HOLD for HR < : 60 magnesium oxide 400 mg (241.3 mg magnesium) Tablet 400 mg PO DAILY Qty: 90 0RF digoxin 125 mcg (0.125 mg) Tablet 0.25 mg PO DAILY Qty: 60 0RF Eliquis 5 mg Tablet 5 mg PO BID Qty: 120 2RF thiamine mononitrate (vit B1) [Vitamin B-1 (mononitrate)] 100 mg tablet 100 mg PO DAILY
[2023-06-05 23:30] VITALS: BP 110/77; PULSE 137; RESP 20; TEMP 36.5; O2SAT 97
[2023-06-05 23:36] LABS: Ethanol 292 mg/dL
[2023-06-05] MEDS: dilTIAZem HCL 50 MG/10 ML VIAL 20 MG IVPUSH (23:37)
[2023-06-05 23:38] LABS: Mean Corpuscular Volume 110.5 fL (80.0-98.0)
[2023-06-05] MEDS: 0.9 % Sodium Chloride 1,000 ML 999 ML IV (23:38)
[2023-06-05 23:41] VITALS: BP 117/92; PULSE 127; RESP 16; O2SAT 98
[2023-06-05 23:41] LABS: Alanine Aminotransferase 18 U/L (0-40); Alkaline Phosphatase 196 U/L (39-117); Anion Gap 15 (12-20); Aspartate Amino Transferase 29 U/L (5-37); Bilirubin Total 0.6 mg/dL (0.0-1.0); Blood Urea Nitrogen 18 mg/dL (9-16); Carbon Dioxide 22 mmol/L (22-29); Chloride 108 mmol/L (96-108); Estimated Glomerular Filt Rate 58; Glucose Random 127 mg/dL (60-115); Potassium 3.9 mmol/L (3.3-5.1); Sodium 141 mmol/L (135-145); Total Protein 7.3 g/dL (6.5-8.0)
[2023-06-05 23:45] VITALS: BP 104/76; PULSE 106; RESP 20; O2SAT 94
[2023-06-05 23:45] LABS: Troponin-I High Sensitivity 22.7 ng/L (<3.5-35.0)
[2023-06-05] MEDS: Apixaban 5 MG TABLET PO (23:48)
[2023-06-06] VITALS (20 sets, daily range): BP systolic 71–125; BP diastolic 46–87; PULSE 71–133; RESP 15–26; TEMP 36.4–36.7; O2SAT 94–100; BMI 33.6
[2023-06-06] MEDS: Metoprolol Tartrate 5 MG/5 ML VIAL IVPUSH (00:02)
[2023-06-06] MEDS: Magnesium Sulfate/H2O 2 GM/50 ML PIGGYBACK IV (00:02)
[2023-06-06 00:13] LABS: Magnesium 1.8 mg/dL (1.6-2.6)
[2023-06-06 00:22] LABS: Calcium 9.1 mg/dL (8.4-10.2)
[2023-06-06 00:28] LABS: B Type Natriuretic Peptide 1694 pg/mL (<100)
--- NOTE | 2023-06-06 09:18 | PC.NURSE ---
pt a+o x3, vss, he denies chest pain/sob. states I don't have pain anywhere . pt sitting up at the side of his bed states I feel fine, when can I leave . no other complaints.
--- NOTE | 2023-06-06 09:25 | PC.NURSE ---
assumed care of patient. Pt explained that he does not feel well enough to go home - he feels hopeless, weak, and scared to leave and says I feel like something bad will happen . Denies SI/HI. Pt reports that he has limited friends and family close by or in close contact and is very worried that he is unsafe to go home. No oxygen requirements at this time. afib on tele - rate 100-125. MD aware of rate.
[2023-06-06] MEDS: Metoprolol Succinate ER 50 MG TAB.ER.24H PO (09:58)
[2023-06-06] MEDS: Apixaban 5 MG TABLET PO ×2 (09:58→22:16)
[2023-06-06] MEDS: 0.9 % Sodium Chloride 1,000 ML 999 ML IVCONT (09:58)
--- NOTE | 2023-06-06 10:01 | PC.NURSE ---
medicated per mar after MD assessment. fluids infusing. afib on tele 105-125.
--- NOTE | 2023-06-06 12:59 | PC.NURSE ---
pt resting -afib on tele rate 105-125.
--- NOTE | 2023-06-06 14:11 | PC.NURSE ---
pt remains in afib on tele 110-120s, MD aware. plan of care ongoing. pt having lunch
--- NOTE | 2023-06-06 15:18 | PC.NURSE ---
pt HR not lowered by metoprolol - rate afib 110-133. notified. awaiting orders
[2023-06-06] MEDS: dilTIAZem HCL 125 MG in 0.9 % Sodium Chloride 100 ML 10 MG IVCONT (15:27)
[2023-06-06] MEDS: LORazepam 2 MG/ML VIAL 1 MG IVPUSH (15:33)
--- NOTE | 2023-06-06 15:37 | PC.NURSE ---
ativan given and dilt drip started at 10 mg/hr.
[2023-06-06] MEDS: PHENobarbitaL sodium 130 MG/ML IM ONCE 292 MG IM (15:48)
--- NOTE | 2023-06-06 16:10 | PHA.MEDREC ---
Pharmacy Consult ? Medication Reconciliation Pharmacy has completed the medication reconciliation. Patient recently here (05/23/23). Patient reports no med changes outside discharge meds.
--- NOTE | 2023-06-06 16:35 | PC.NURSE ---
dilt gtt titrated per HR above 120 (up to 135). increased drip to 15 mg/hr
--- NOTE | 2023-06-06 17:18 | P.HPHOSP_ITS ---
History of Present Illness Date of Service: 06/06/23 Chief Complaint: SOB, weakness A 57 years old male with PMH of Afib, CHF w reduced EF, alcohlism, HTN who presents to the hospital with SOB and hypoxia per EMS who brought him. The patient had many similar admissions with similar presentaiton as he continues to drink alcohol with a question if he takes his medications as outpatient. reports having drinks at bar when he felt weak, clammy, palpitations with no reported chest pain, nausea or vomiting, diarrhea or urinary symptoms. He was brought by EMS to the ED where he was found in Afib rvr. started on Cardizem IV then Cardizem drip and admitted for further treatment. Review of Systems 2 Review of Systems: No fever, chills or weakness No chest pain,has palpitation haing shortness of breath but no coughing No abdominal pain, nausea or vomiting No urinary symptoms No any rash or wounds PMFSH Medical History Alcoholism CHF (congestive heart failure) Alcohol dependence with withdrawal Cardiomyopathy Chronic HFrEF (heart failure with reduced ejection fraction) Atrial fibrillation with rapid ventricular response Alcoholic hepatitis HTN (hypertension) Family History Father CAD (coronary artery disease) Mother Atrial fibrillation Surgical History No pertinent past surgical history Social History Household Members: None Housing: Apartment Do you presently have visiting nurse or other home services: No Unable to assess alcohol history related to: Unable to respond Alcohol intake: current Alcohol intake frequency: holidays/special occasions only Alcohol type: hard liquor Comment: 1:1 sitter at bedside Patient Tobacco Use Status: Never used Tobacco Second Hand Smoke Exposure: No Advance Directives: Yes Advance Directives on File: Yes Advance Directives Date on File: 02/12/23 service: No Current occupational status: unemployed Meds Allergies Allergy/AdvReac Type Severity Reaction Status Date / Time No Known Allergies Allergy Verified 03/11/23 08:50 [No Known Allergies*] Active Medications: Current Medications Acetaminophen (Acetaminophen 325 Mg Tablet) 650 mg PO Q6H PRN PRN Reason: Pain, Mild (Pain Scale 1-3) Digoxin (Digoxin 0.25 Mg Tablet) 0.25 mg PO ONCE ONE Stop: 06/06/23 17:14 Furosemide (Furosemide 40 Mg/4 Ml Vial) 40 mg IVPUSH ONCE ONE; Protocol Stop: 06/06/23 17:14 Diltiazem HCl 125 mg/ Sodium (Chloride) 125 mls @ 0 mls/hr IVCONT .Q0M [facility]; Protocol Last Titration: 06/06/23 16:35 Dose: 15 mg/hr, 15 mls/hr Ondansetron HCl (Ondansetron Hcl 4 Mg/2 Ml Vial) 4 mg IVPUSH Q8H PRN PRN Reason: Nausea and Vomiting Pharmacy Consult (Consult Rx Etoh Phenob Im/Po) 1 each MISCELLANE ONCE PRN; Protocol PRN Reason: Consult order Phenobarbital (Phenobarbital 15 Mg Tablet) 45 mg PO BID [facility] Stop: 06/08/23 21:01 Phenobarbital (Phenobarbital 30 Mg Tablet) 30 mg PO BID [facility] Stop: 06/10/23 21:01 Phenobarbital (Phenobarbital 15 Mg Tablet) 15 mg PO DAILY [facility] Stop: 06/12/23 09:01 Phenobarbital Sodium (Phenobarbital Sodium 130 Mg/Ml Vial Im Q3hx2) 219 mg IM Q3H [facility] Stop: 06/06/23 22:01 Sodium Chloride (0.9 % Sodium Chloride Flush 3 Ml Syringe) 3 ml IVFLUSH QSHIFT [facility] Home Medications Medication Instructions Recorded Confirmed Last Taken Type thiamine mononitrate (vit B1) 100 100 mg PO DAILY 09/16/22 06/06/23 06/04/23 History mg tablet (Vitamin B-1 (mononitrate)) Physical Exam 2 Vital Signs and Narrative: Vital Signs: Last Vital Signs Temp 97.7 F 06/06/23 12:30 Pulse 126 H 06/06/23 16:34 Resp 18 06/06/23 16:34 BP 118/80 06/06/23 16:15 Pulse Ox 96 06/06/23 16:34 O2 Del Method Room Air 06/06/23 16:34 O2 Flow Rate 4 06/06/23 00:53 BMI result Body Mass Index 31.9 Const: Other: Constitutional : Awake, interactive, not in distress Neck : Normal inspection, Supple Cardiovascular : irregular irregular , no JVP, +1 lower extremity edema Respiratory : good bilateral air entry, no crackles, wheezes or rhonchi Gastrointestinal: soft, lax, Normal bowel sounds, Non tender Skin : Warm, Dry Neurological : Alert & oriented x3, No focal deficit Results Labs 06/05/23 23:17 06/05/23 23:17 Labs: Laboratory Results - last 24 hr 06/05/23 23:17 MCV 110.5 H MCH 35.8 H MCHC 32.4 RDW 15.6 Plt Count 170 D MPV 10.1 Immature Gran % (Auto) 0.4 Neut % (Auto) 56.7 Lymph % (Auto) 30.2 Gilliam % (Auto) 10.1 Eos % (Auto) 1.6 Baso % (Auto) 1.0 Lymph # (Auto) 1.5 Gilliam # (Auto) 0.5 Eos # (Auto) 0.1 Baso # (Auto) 0.1 Abs Immat Gran (auto) 0.02 Absolute Neuts (auto) 2.8 Absolute Nucleated RBC 0.000 Nucleated RBC % (auto) 0.0 APTT 30.0 Anion Gap 15 Estim Creat Clear Calc 77.0 Estimated GFR 58 Random Glucose 127 H Calcium 9.1 Magnesium 1.8 Total Bilirubin 0.6 AST 29 ALT 18 Alkaline Phosphatase 196 H B-Natriuretic Peptide 1694 H Total Protein 7.3 Albumin 4.0 Ethyl Alcohol 292 Imaging Radiologist's Impressions: Impressions Chest X-Ray 06/06/23 00:53 IMPRESSION: No overt edema. Cardiac silhouette remains enlarged. Assessment and Plan (1) Chronic CHF: Status: Acute (2) Alcohol intoxication: Status: Acute (3) Atrial fibrillation with rapid ventricular response: Status: Acute (4) Alcohol dependence with withdrawal: Status: Resolved Plan A 57 years old male with PMH of Afib, CHF w reduced EF, alcohlism, HTN who presents to the hospital with SOB and palpitations Chronic atrial fibrillation with rapid ventricular response Related to active alcohol consumption Started on Cardizem drip Continue digoxin, metoprolol, Eliquis Cardiology consult for referral to EP at [facility] regarding suitability for AV node ablation and ICD placement Acute on Chronic systolic CHF severe cardiomyopathy with an ejection fraction of 10-20% range Will hold losartan to make room for increased metoprolol if needed for rate control IV Lasix Continue metoprolol, Aldactone, Jardiance Alcohol dependence with withdrawal Advised to quit alcohol Start Phenobarb CIWA Alcoholic fatty liver disease with thrombocytopenia Abstinence recommended DVT prophylaxis with Eliquis Full code Needs likely 2 overnight hospital stay for Afib w rvr management and alcohol dependence with withdrawal Quality Stroke Does the patient have a stroke diagnosis?: No VTE Prior VTE?: No VTE Risk Level:: Medical - moderate - high VTE Device Contraindication: Treatment Not Indicated VTE Drug Contraindication: N/A - Med Ordered
[2023-06-06] MEDS: Furosemide 40 MG/4 ML VIAL IVPUSH (17:46)
[2023-06-06] MEDS: Digoxin 0.25 MG TABLET PO (18:27)
[2023-06-06] MEDS: PHENobarbitaL sodium 130 MG/ML VIAL IM Q3Hx2 219 MG IM ×2 (19:45→22:15)
[2023-06-06] MEDS: 0.9 % Sodium Chloride Flush 3 ML SYRINGE IVFLUSH (22:16)
[2023-06-07] VITALS: BP 108/76; PULSE 95; RESP 24; TEMP 37; O2SAT 93
[2023-06-07 04:00] VITALS: BP 120/86; PULSE 113; RESP 18; TEMP 37.1; O2SAT 92
--- NOTE | 2023-06-07 04:33 | PC.NURSE ---
Addendum entered by Rita German RN 06/07/23 06:18: At approx 0600 pt HR sustaining >120 afib with PVCs. Cardizem gtt restarted. Original Note: Pt admitted to [facility] from ED at approx 2150. A&Ox4. Ambulating from stretcher to bed, dyspnea on exertion. Audible wheezes heard from upper airway yet lung sounds clear throughout to auscultation. Improved with rest. On Cardizem gtt initially titrated down from 15 mg/hr to 0 mg/hr by 2255 per protocol. HR controlled 80-90s. Afib with PVCs on cardiac monitor technician. Pt refusing bed alarm/camera. Instructed to use call tillman when needing to void. On phenobarb protocol for CIWA. Call tillman within reach. Bed in lowest locked position.
[2023-06-07 07:49] VITALS: BP 111/78; PULSE 93; RESP 19; TEMP 36.4; O2SAT 95
[2023-06-07 08:21] LABS: Anion Gap 12 (12-20); Blood Urea Nitrogen 18 mg/dL (9-16); Calcium 8.8 mg/dL (8.4-10.2); Carbon Dioxide 22 mmol/L (22-29); Chloride 107 mmol/L (96-108); Creatinine Clr Calc Pharmacy 89.3; Estimated Glomerular Filt Rate > 60; Glucose Random 147 mg/dL (60-115); Sodium 137 mmol/L (135-145)
[2023-06-07 09:07] LABS: Digoxin 0.4 ng/mL (0.8-2.0)
[2023-06-07] MEDS: PHENobarbitaL 15 MG TABLET 45 MG PO (09:10)
[2023-06-07] MEDS: 0.9 % Sodium Chloride Flush 3 ML SYRINGE IVFLUSH (09:10)
[2023-06-07] MEDS: Folic Acid 1 MG TABLET PO (09:10)
[2023-06-07] MEDS: Digoxin 0.25 MG TABLET PO (09:10)
[2023-06-07] MEDS: Furosemide 40 MG TABLET 80 MG PO (09:10)
[2023-06-07] MEDS: Spironolactone 25 MG TABLET PO (09:11)
[2023-06-07] MEDS: Thiamine HCL 100 MG TABLET PO (09:11)
[2023-06-07] MEDS: Empagliflozin 10 MG TABLET PO (09:11)
[2023-06-07] MEDS: Metoprolol Succinate ER 50 MG TAB.ER.24H PO (09:11)
[2023-06-07] MEDS: Magnesium Oxide 400 MG TABLET PO (09:11)
[2023-06-07] MEDS: Apixaban 5 MG TABLET PO (09:11)
[2023-06-07] MEDS: Acetaminophen 325 MG TABLET 650 MG PO (09:18)
--- NOTE | 2023-06-07 09:36 | P.CONCA_ITS ---
History of Present Illness History of Present Illness Date of Service: 06/07/23 Chief complaint: SOB, dizzy Narrative: This is a cardiology consultation regarding atrial fibrillation rapid rate. Patient has had innumerable admissions to hospital with same reasons. He has some combination of alcohol excess along with atrial fibrillation rapid rate. This time, he was apparently having drinks at a bar when he was feeling weak, clammy, having palpitations and then led to ER visit. It seems that he was put on IV Cardizem drip and then admitted. The initial EKG, he was having atrial fibrillation rapid rate in the 130s. He has been cardioverted twice in the past but went back into atrial fibrillation most likely from alcohol excess. He is on amiodarone, digoxin as well as beta-blockers for rate control and he still has rapid rates. A lot of this is still driven by alcohol. He does have severe cardiomyopathy as well. Review of Systems 2 Review of Systems: Yes all other systems are reviewed and are negative Constitutional: Constitutional: Reports as per HPI and Reports no additional constitutional complaints Eyes: Eyes: Reports as per HPI and Denies no additional eye complaints ENT: Denies system reviewed and no additional complaints, except as documented and Reports as per HPI Cardiovascular: Cardiovascular: Reports as per HPI, Reports no additional cardiovascular complaints, Denies acrocyanosis, Denies cool extremities, Denies chest pain, Denies leg edema, Denies lightheadedness, Reports palpitations and Reports dyspnea Respiratory: Respiratory: Reports as per HPI, Denies no additional respiratory complaints and Reports dyspnea Gastrointestinal: Gastrointestinal: Reports as per HPI and Denies no additional gastrointestinal complaints Genitourinary: Genitourinary: Reports no additional male genitourinary complaints and Reports as per HPI Musculoskeletal: Musculoskeletal: Reports no additional musculoskeletal complaints and Reports as per HPI Integumentary/Breasts: Skin/Breast: Reports system reviewed and no additional complaints, except as docu Neurologic: Reports system reviewed and no additional complaints, except as documented and Reports as per HPI Psychiatric: Psychiatric: Reports no additional psychiatric complaints and Reports as per HPI Endocrine: Endocrine: Reports no additional endocrine complaints, Reports as per HPI and Reports palpitations Hematologic/Lymphatic: Hematologic/Lymphatic: Reports no additional hematologic/lymphatic complaints and Reports as per HPI Allergic/Immunologic: Allergic/Immunologic: Reports no additional allergic/immunologic complaints and Reports as per HPI [facility] Past Medical History Medical History Alcoholism CHF (congestive heart failure) Alcohol dependence with withdrawal Cardiomyopathy Chronic HFrEF (heart failure with reduced ejection fraction) Atrial fibrillation with rapid ventricular response Alcoholic hepatitis HTN (hypertension) Family History Family History Father CAD (coronary artery disease) Mother Atrial fibrillation Surgical History Surgical History No pertinent past surgical history Social History Social History Household Members: None Housing: Apartment Do you presently have visiting nurse or other home services: No Unable to assess alcohol history related to: Unable to respond Alcohol intake: current Alcohol intake frequency: holidays/special occasions only Alcohol type: hard liquor Comment: 1:1 sitter at bedside Patient Tobacco Use Status: Never used Tobacco Second Hand Smoke Exposure: No Advance Directives Date on File: 02/12/23 service: No Current occupational status: unemployed Meds Allergies Allergy/AdvReac Type Severity Reaction Status Date / Time No Known Allergies Allergy Verified 03/11/23 08:50 [No Known Allergies*] Active Medications: Current Medications Acetaminophen (Acetaminophen 325 Mg Tablet) 650 mg PO Q6H PRN PRN Reason: Pain, Mild (Pain Scale 1-3) Last Admin: 06/07/23 09:18 Dose: 650 mg Apixaban (Apixaban 5 Mg Tablet) 5 mg PO BID [facility] Last Admin: 06/07/23 09:11 Dose: 5 mg Digoxin (Digoxin 0.25 Mg Tablet) 0.25 mg PO DAILY [facility] Last Admin: 06/07/23 09:10 Dose: 0.25 mg Empagliflozin (Empagliflozin 10 Mg Tablet) 10 mg PO DAILY [facility] Last Admin: 06/07/23 09:11 Dose: 10 mg Folic Acid (Folic Acid 1 Mg Tablet) 1 mg PO DAILY [facility] Last Admin: 06/07/23 09:10 Dose: 1 mg Furosemide (Furosemide 40 Mg Tablet) 80 mg PO DAILY [facility]; Protocol Last Admin: 06/07/23 09:10 Dose: 80 mg Diltiazem HCl 125 mg/ Sodium (Chloride) 125 mls @ 0 mls/hr IVCONT .Q0M [facility]; Protocol Last Titration: 06/07/23 06:08 Dose: 5 mg/hr, 5 mls/hr Magnesium Oxide (Magnesium Oxide 400 Mg Tablet) 400 mg PO DAILY [facility] Last Admin: 06/07/23 09:11 Dose: 400 mg Metoprolol Succinate (Metoprolol Succinate Er 50 Mg Tab.Er.24h) 50 mg PO DAILY [facility]; Protocol Last Admin: 06/07/23 09:11 Dose: 50 mg Ondansetron HCl (Ondansetron Hcl 4 Mg/2 Ml Vial) 4 mg IVPUSH Q8H PRN PRN Reason: Nausea and Vomiting Pharmacy Consult (Consult Rx Etoh Phenob Im/Po) 1 each MISCELLANE ONCE PRN; Protocol PRN Reason: Consult order Phenobarbital (Phenobarbital 15 Mg Tablet) 45 mg PO BID [facility] Stop: 06/08/23 21:01 Last Admin: 06/07/23 09:10 Dose: 45 mg Phenobarbital (Phenobarbital 30 Mg Tablet) 30 mg PO BID [facility] Stop: 06/10/23 21:01 Phenobarbital (Phenobarbital 15 Mg Tablet) 15 mg PO DAILY [facility] Stop: 06/12/23 09:01 Sodium Chloride (0.9 % Sodium Chloride Flush 3 Ml Syringe) 3 ml IVFLUSH QSHIFT [facility] Last Admin: 06/07/23 09:10 Dose: 3 ml Spironolactone (Spironolactone 25 Mg Tablet) 25 mg PO DAILY [facility]; Protocol Last Admin: 06/07/23 09:11 Dose: 25 mg Thiamine HCl (Thiamine Hcl 100 Mg Tablet) 100 mg PO DAILY [facility] Last Admin: 06/07/23 09:11 Dose: 100 mg Home Medications Medication Instructions Recorded Confirmed Last Taken Type thiamine mononitrate (vit B1) 100 100 mg PO DAILY 09/16/22 06/06/23 06/04/23 History mg tablet (Vitamin B-1 (mononitrate)) Physical Exam 2 Vital Signs: Vital Signs: Last Vital Signs Temp 97.6 F 06/07/23 07:49 Pulse 93 06/07/23 07:49 Resp 19 06/07/23 07:49 BP 111/78 06/07/23 07:49 Pulse Ox 95 06/07/23 07:49 O2 Del Method Room Air 06/07/23 07:49 O2 Flow Rate 4 06/06/23 00:53 BMI result Body Mass Index 33.6 Const: General: comfortable and no acute distress O rientation/consciousness: patient oriented x3 HEENT: Other: Unremarkable Head: Yes normal to inspection Neck: Neck: Yes normal visual inspection Chest: Chest palpation & inspection: normal inspection of the chest Resp: Auscultation: clear to auscultation bilaterally Cardio: Palpation: normal PMI Heart sounds: S1 normal heart sound present, S2 normal heart sound present, no gallops, no murmurs and no rubs GI: Palpation (GI): Soft to palpation Back/Spine/Pelvis: Other: unremarkable Skin: General skin exam: no rashes or lesions noted Neuro: General: patient oriented x3 Extrem: General: Yes normal to inspection Psych: Mental Status: mental status grossly normal Objective Labs and Meds 06/05/23 23:17 06/07/23 07:46 Lab results: Laboratory Results - last 24 hr 06/07/23 07:46 Hold Purple Top SEE NOTE Sodium 137 Potassium 4.0 Chloride 107 Carbon Dioxide 22 Anion Gap 12 BUN 18 H Creatinine 1.14 Estim Creat Clear Calc 89.3 Estimated GFR > 60 Random Glucose 147 H Calcium 8.8 Digoxin 0.4 L ECG Interpretation: EKG shows atrial fibrillation at a rate of 137/Min with either PVCs or aberrant conduction and nonspecific ST-T changes. Cannot exclude old anterior infarct. Incomplete left bundle-branch block type pattern. Assessment and Plan (1) Atrial fibrillation with rapid ventricular response: Status: Acute (2) Alcohol intoxication: Status: Acute (3) Acute on chronic clinical systolic heart failure: Status: Acute Plan Presenting rhythm is atrial fibrillation rapid rate. Alcohol levels are elevated. Digoxin level is 0.4 which indicates he probably is taking some meds. Cardiac BNP is quite high at 1694 but he has been in this range several times. Echocardiogram from last month LVEF of 15-20% with moderate biatrial enlargement. In October of this year, he underwent transesophageal echocardiogram and in that study LVEF was 10-15%. Overall, severe cardiomyopathy, persistent atrial fibrillation with rapid rate, alcohol issues. Has been cardioverted twice in the past. Somewhat of difficult situation as lot of these issues are brought on by alcohol and patient feels understand this. Discussed with EP at [facility], . Will plan for AV node ablation due to uncontrolled ventricular rates with severe cardiomyopathy and failed medical therapy. ICD placement. Discussed with Dr. Ordonez. Procedures Date of Service Date of Service: 06/07/23
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
[2023-06-07] MEDS: dilTIAZem HCL 125 MG in 0.9 % Sodium Chloride 100 ML IVCONT (10:51)
--- NOTE | 2023-06-07 11:10 | P.DS_ITS ---
DS: Providers Provider Date of Service: 06/07/23 Date of admission: 06/06/23 17:13 Primary care physician: Unknown Physician Consults: 06/06/23 17:13 Consult to Cardiology Routine Consulting Provider: [facility] Reason for consultation: Recurrent Afib rvr, to arrange [facility] EP plan for transfer\OP DS: Diagnosis Discharge Diagnosis (1) Atrial fibrillation with rapid ventricular response: Status: Acute (2) Alcohol intoxication: Status: Acute (3) Acute on chronic clinical systolic heart failure: Status: Acute (4) Cardiomyopathy: Status: Inactive (5) Chronic HFrEF (heart failure with reduced ejection fraction): Status: Inactive DS: Summary Hospital Course Hospital Course: Admission note HPI A 57 years old male with PMH of Afib, CHF w reduced EF, alcohlism, HTN who presents to the hospital with SOB and hypoxia per EMS who brought him. The patient had many similar admissions with similar presentaiton as he continues to drink alcohol with a question if he takes his medications as outpatient. reports having drinks at bar when he felt weak, clammy, palpitations with no reported chest pain, nausea or vomiting, diarrhea or urinary symptoms. Most recent Echo 05/18/23 showed EF of 15-20% He was brought by EMS to the ED where he was found in Afib rvr. started on Cardizem IV then Cardizem drip and admitted for further treatment. Hospital course # Chronic atrial fibrillation with rapid ventricular response Related to active alcohol consumption and likely non-adherent to his medications (he claims the opposite). Started on Cardizem drip with fair response as home medications of digoxin, metoprolol, Eliquis were resumed. Cardiology consulted for referral to EP at [facility] regarding suitability for AV node ablation and ICD placement. # Acute on Chronic systolic CHF severe cardiomyopathy with an ejection fraction of 10-20% range. Started on IV Lasix with overnight improvement. Continue metoprolol, Aldactone, Jardiance. # Alcohol dependence with withdrawal Advised to quit alcohol. Started on Phenobarb protocol # Alcoholic fatty liver disease with thrombocytopenia Abstinence recommended Time Attestation Discharge coordination time: Greater than 30 minutes Quality: Safe Use of Opioids Does Pt have an Active Cancer Diagnosis on the Problem List?: No Quality: Stroke Does the patient have a stroke diagnosis?: No Physical Exam Vital Signs: Vital Signs: Last Vital Signs Temp 97.6 F 06/07/23 07:49 Pulse 93 06/07/23 07:49 Resp 19 06/07/23 07:49 BP 111/78 06/07/23 07:49 Pulse Ox 95 06/07/23 07:49 O2 Del Method Room Air 06/07/23 07:49 O2 Flow Rate 4 06/06/23 00:53 BMI result Body Mass Index 33.6 Const: Other: Constitutional : Awake, interactive, not in distress Neck : Normal inspection, Supple Cardiovascular : irregular irregular , no JVP, +1 lower extremity edema Respiratory : good bilateral air entry, no crackles, wheezes or rhonchi Gastrointestinal: soft, lax, Normal bowel sounds, Non tender Skin : Warm, Dry Neurological : Alert & oriented x3, No focal deficit DS: Data Data Completed and Pending Completed studies during hospitalization [Text1]: Procedures Assistance with Respiratory Ventilation, Less than 24 Consecutive Hours, Continuous Positive Airway Pressure (12/22/22) Detoxification Services for Substance Abuse Treatment (05/17/23) Insertion of Endotracheal Airway into Trachea, Via Natural or Artificial Opening (11/11/21) Respiratory Ventilation, 24-96 Consecutive Hours (11/11/21) Yazidi of Cardiac Rhythm, Single (11/11/21) Labs on day of discharge: Laboratory Results - last 24 hr 06/07/23 07:46 Hold Purple Top SEE NOTE Sodium 137 Potassium 4.0 Chloride 107 Carbon Dioxide 22 Anion Gap 12 BUN 18 H Creatinine 1.14 Estim Creat Clear Calc 89.3 Estimated GFR > 60 Random Glucose 147 H Calcium 8.8 Digoxin 0.4 L Imaging Chest x-ray: Radiologist's impression: ITS Impressions Chest X-Ray 06/06/23 00:53 IMPRESSION: No overt edema. Cardiac silhouette remains enlarged. Discharge Plan Discharge Anticipated Discharge Date/Time: 06/07/23 11:08 Patient Disposition: er Acute Care Hospital Discharge Diagnosis: Atrial fibrillation with RvR Heart failure exacerbation Referrals: Physician,Unknown J [Physician] - 1 Week Discharge Medications: Continued Jardiance 10 mg tablet 10 mg PO DAILY Qty: 30 1RF furosemide 40 mg tablet 80 mg PO DAILY 30 Days Qty: 60 1RF Protocol: Hold for SBP< HOLD for SBP < : 90 Rx Instructions: OVERDUE FOR APPT. PLEASE CALL [phone] TO SCHEDULE FOLLOW UP SO WE CAN CONTINUE REFILLING YOUR MEDICATIONS. losartan 25 mg tablet 25 mg PO Q OTHER DAY 30 Days Qty: 15 1RF Hold Instructions: Resume on 03/02/23. hold until seen by pcp Rx Instructions: OVERDUE FOR APPT. PLEASE CALL [phone] TO SCHEDULE FOLLOW UP SO WE CAN CONTINUE REFILLING YOUR MEDICATIONS. folic acid 1 mg tablet 1 mg PO DAILY Qty: 90 1RF Rx Instructions: OVERDUE FOR APPT. PLEASE CALL [phone] TO SCHEDULE FOLLOW UP SO WE CAN CONTINUE REFILLING YOUR MEDICATIONS. spironolactone 25 mg tablet 25 mg PO DAILY Qty: 90 0RF Rx Instructions: OVERDUE FOR APPT. PLEASE CALL [phone] TO SCHEDULE FOLLOW UP SO WE CAN CONTINUE REFILLING YOUR MEDICATIONS. metoprolol succinate 50 mg Tablet Extended Release 24 Hr 50 mg PO DAILY Qty: 90 0RF Protocol: Hold for SBP/HR < HOLD for SBP < : 90 HOLD for HR < : 60 magnesium oxide 400 mg (241.3 mg magnesium) Tablet 400 mg PO DAILY Qty: 90 0RF digoxin 125 mcg (0.125 mg) Tablet 0.25 mg PO DAILY Qty: 60 0RF Eliquis 5 mg Tablet 5 mg PO BID Qty: 120 2RF thiamine mononitrate (vit B1) [Vitamin B-1 (mononitrate)] 100 mg tablet 100 mg PO DAILY Discharge Orders: Discharge Order (Routine); Ordered 06/07/23 Ordered By: Titus Ordonez Diet: Advance to usual diet Activity on Discharge: As tolerated Stand Alone Forms: Patient Portal Discharge page Activity Restrictions/Additional Instructions: Continue taking medications as prescribed by her open source developer Stop drinking alcohol Follow with open source developer and detox Care Plan Goals: Read below Health Concerns: Read below Plan of Treatment: Read below Assessment: Transfer to [facility] for further work up and treatment Patient Instructions: Heart Failure (ED), A-fib (Atrial Fibrillation) (ED), Abuse of Alcohol (ED) Discharge Date/Time: 06/07/23 13:16
[2023-06-07 11:12] VITALS: BP 113/80; PULSE 110; RESP 20; TEMP 36.5; O2SAT 95
--- NOTE | 2023-06-07 11:33 | MHC.CM.PN ---
EMR reviewed and per MD rounds, pt is being medically transferred to [facility] for further workup and treatment.
--- NOTE | 2023-06-07 12:58 | P.CDIM_ITS ---
PROVIDER RESPONSE TEXT: To clarify, the appropriate diagnosis supported by the clinical indicators: Alcoholic cardiomyopathy QUERY TEXT: PHYSICIAN'S DOCUMENTATION REQUEST Date of Query: 06/07/2023 11:37 AM EST Patient Name: Abner Galvan Admit Date: 06/06/2023 Dear Titus Ordonez, A review of the medical record indicates additional documentation may be needed. Please review below and update the documentation accordingly. Clinical Indicators: Cardiology notes - Overall, severe cardiomyopathy, persistent atrial fibrillation with rapid rate, al cohol issues. Has been cardioverted twice in the past. Will plan for AV node ablation due to uncontrolled ventricular rates with severe cardiomyopathy and f lito medical therapy. Clarify which of the following accurately represents the type of the cardiomyopathy: Possible options might include: Alcoholic cardiomyopathy Hypertensive cardiomyopathy Dilated cardiomyopathy Ischemic cardiomyopathy Non-ischemic cardiomyopathy Other please specify if known Other (explain) Clinically unable to determine (explain) Thank you, Roz Barriga, CCS, CDIS Use of terms such as suspected, likely, concern for, or probable (associated with a specific diagnosi s that is being evaluated, monitored, or treated as if it exists) are acceptable and can be coded in the inpatient se tting, when documented at the time of discharge. Please use your independent medical judgment in providing your response. THIS QUERY IS PART OF THE PERMANENT MEDICAL RECORD
== END 2023-06-07 13:16 | disposition short-term general hospital (02) | DRG 201 ==
LOC: HO.ED 06-06 01:36 → HO.EDOVER 06-06 17:26 → HO.IMC 06-06 21:12
PROVIDERS: Admitting Provider Student in an Organized Health Care Education/Training Program; Emergency Provider Internal Medicine; PCP Internal Medicine; Visit Provider Student in an Organized Health Care Education/Training Program
DX: I48.19 Other persistent atrial fibrillation (principal); I50.23 Acute on chronic systolic (congestive) heart failure; I42.6 Alcoholic cardiomyopathy; D69.59 Other secondary thrombocytopenia; K70.0 Alcoholic fatty liver; I11.0 Hypertensive heart disease with heart failure; F10.239 Alcohol dependence with withdrawal, unspecified; F10.229 Alcohol dependence with intoxication, unspecified; Y90.8 Blood alcohol level of 240 mg/100 ml or more; Z79.01 Long term (current) use of anticoagulants; Z91.148 Patient's other noncompliance with medication regimen for other reason; Z79.899 Other long term (current) drug therapy
CPT/HCPCS: 36415; 71045; 80048; 80053; 80162; 80307; 83735; 83880; 84484; 85025; 85730; 93005; 99285; J1940; J2060; J2560; J3475

== ENCOUNTER → 2023-06-05 23:19 | Outpatient (BNV) | payer OTHER, SELFPAY | PROVIDERS: Admitting Provider Student in an Organized Health Care Education/Training Program; Emergency Provider Internal Medicine; Visit Provider Internal Medicine Cardiovascular Disease | DX: I48.91 Unspecified atrial fibrillation (principal); R94.31 Abnormal electrocardiogram [ECG] [EKG] | CPT/HCPCS: 93010 ==

== ENCOUNTER → 2023-06-06 17:13 | Outpatient (BNV) | payer OTHER, SELFPAY | PROVIDERS: Admitting Provider Student in an Organized Health Care Education/Training Program; Emergency Provider Internal Medicine; Visit Provider Internal Medicine | DX: I48.91 Unspecified atrial fibrillation (principal); F10.929 Alcohol use, unspecified with intoxication, unspecified; I50.23 Acute on chronic systolic (congestive) heart failure | CPT/HCPCS: 99223 ==

== ENCOUNTER → 2023-06-06 17:13 | Outpatient (BNV) | payer OTHER, SELFPAY | PROVIDERS: Admitting Provider Student in an Organized Health Care Education/Training Program; Emergency Provider Internal Medicine; Visit Provider Student in an Organized Health Care Education/Training Program | DX: I48.91 Unspecified atrial fibrillation (principal); F10.929 Alcohol use, unspecified with intoxication, unspecified; I50.23 Acute on chronic systolic (congestive) heart failure; I42.9 Cardiomyopathy, unspecified | CPT/HCPCS: 99223; 99239 ==

== ENCOUNTER 2023-08-17 14:24 | Inpatient (IN) | payer OTHER, SELFPAY ==
--- NOTE | ~2023-08-17 | XR_ITS ---
EXAMINATION: XR CHEST CLINICAL INFORMATION: Chest pain COMPARISON: 06/06/2023 TECHNIQUE: Portable AP upright view of the chest was obtained. FINDINGS: A new focal opacity 4 cm is present in the right upper lobe abutting the minor fissure laterally. No pleural effusion or pneumothorax is seen. The cardiac silhouette is enlarged without change. No acute osseous abnormality. XR/XR chest 1V IMPRESSION: New focal opacity in the right upper lobe in the mid chest laterally. The findings may reflect pneumonia or contusion but other etiologies including thromboembolic disease can be considered. Stable cardiomegaly. The findings were discussed with Dr. Will 08/17/2023 at 4:30 PM.
--- NOTE | ~2023-08-17 | CT_ITS ---
EXAMINATION: CT ANGIOGRAM OF THE CHEST WITH AND WITHOUT CONTRAST (CT PULMONARY ANGIOGRAM FOR PE) CLINICAL INFORMATION: Reason for Exam sob COMPARISON: CT angiography of the chest February 08, 2023. Plain film chest x-ray August 17, 2023 TECHNIQUE: Prior to contrast administration, noncontrast localization images were obtained. Subsequently, multidetector volumetric imaging was performed from the thoracic inlet to below the diaphragms following the administration of 65 mL Omnipaque 350 intravenous contrast. No contrast reaction reported Sagittal, coronal, and MIP oblique sagittal reformatted images were obtained on the CT workstation, uploaded to PACS, and reviewed. This CT examination was performed using dose optimization techniques as appropriate, variously including the following: *Automated exposure control *Adjustment of mA and/or kV according to patient size (this includes techniques or standardized protocols for targeted exams where dose is matched to indication/reason for exam; i.e. extremities or head) *Use of iterative reconstruction technique Total exam dose-length product 347 mGy-cm FINDINGS: QUALITY OF STUDY/CONTRAST BOLUS: Satisfactory. PULMONARY ARTERIES: No pulmonary emboli. THORACIC AORTA: No aneurysm. LUNG: Peripherally dense and centrally patchy airspace opacity in the right upper lobe posteriorly adjacent to the major fissure and minor fissure. Left lung is normally aerated. PLEURA: No pleural effusion or pneumothorax. MEDIASTINUM: Heart size is enlarged. There is no pericardial effusion. No evidence of septal bowing or right heart strain.. No mediastinal mass or significant lymphadenopathy. CORONARY ARTERY CALCIFICATION: Small to moderate volume of coronary artery calcification. CHEST WALL/AXILLA: No axillary or internal mammary lymphadenopathy. OSSEOUS STRUCTURES: No acute or suspicious osseous abnormality. Multilevel degenerative spondylosis spine. Chronic small compression deformity superior endplate of T12. UPPER ABDOMEN: No abnormality visualized solid organs. No reflux of contrast into the hepatic veins to suggest elevated right heart pressures. Few diverticula at the splenic flexure of colon. CT/CT angio chest PE protocol IMPRESSION: 1. No evidence of pulmonary embolism. 2. Right upper lobe airspace disease. 3. Cardiomegaly. VTE: negative.
[2023-08-17 14:53] VITALS: BP 115/73; PULSE 143; RESP 20; TEMP 36.6; O2SAT 97; BMI 31.4
--- NOTE | 2023-08-17 14:58 | ECG_ITS ---
Test Reason : TACHYCARDIA Blood Pressure : / mmHG Vent. Rate : 144 BPM Atrial Rate : 000 BPM P-R Int : 000 ms QRS Dur : 104 ms QT Int : 324 ms P-R-T Axes : 000 036 161 degrees QTc Int : 501 ms Atrial fibrillation with rapid ventricular response with premature ventricular or aberrantly conducted complexes Anterior infarct (cited on or before 05-JUN-2023) Abnormal ECG When compared with ECG of 05-JUN-2023 23:19, T wave inversion no longer evident in Lateral leads Referred By: Tristan Bergman Electronically Signed By:Wally Arreola
--- NOTE | 2023-08-17 15:02 | ED.GENADULT ---
HPI - General Adult General Chief complaint: Wound/Laceration Stated complaint: needs staple removed from head Related Data Home Medications Medication Instructions Recorded Confirmed thiamine mononitrate (vit B1) 100 100 mg PO DAILY 09/16/22 06/06/23 mg tablet (Vitamin B-1 (mononitrate)) Previous Rx's Medication Instructions Recorded empagliflozin 10 mg tablet 10 mg PO DAILY #30 tabs 11/18/22 (Jardiance) magnesium oxide 400 mg (241.3 mg 400 mg PO DAILY #90 tabs 03/13/23 magnesium) tablet metoprolol succinate 50 mg 50 mg PO DAILY #90 tabs 03/13/23 tablet,extended release 24 hr digoxin 125 mcg (0.125 mg) tablet 0.25 mg (2 x 125 mcg (0.125 mg)) 03/14/23 PO DAILY #60 tabs furosemide 40 mg tablet 80 mg PO DAILY 30 days #60 tabs 04/13/23 losartan 25 mg tablet 25 mg PO Q OTHER DAY 30 days #15 04/13/23 tabs folic acid 1 mg tablet 1 mg PO DAILY #90 tabs 04/14/23 apixaban 5 mg tablet (Eliquis) 5 mg PO BID #120 tabs 05/24/23 spironolactone 25 mg tablet 25 mg PO DAILY #90 tabs 07/12/23 Allergies Allergy/AdvReac Type Severity Reaction Status Date / Time No Known Allergies Allergy Verified 08/17/23 14:55 [No Known Allergies*] [facility] Past Medical History Medical History Alcoholism CHF (congestive heart failure) Alcohol dependence with withdrawal Cardiomyopathy Chronic HFrEF (heart failure with reduced ejection fraction) Atrial fibrillation with rapid ventricular response Alcoholic hepatitis HTN (hypertension) Surgical History No pertinent past surgical history Family History Family History Father CAD (coronary artery disease) Mother Atrial fibrillation Social History Social History Household Members: None Housing: Apartment Do you presently have visiting nurse or other home services: No Unable to assess alcohol history related to: Unable to respond Alcohol intake: current Alcohol intake frequency: holidays/special occasions only Alcohol type: hard liquor Comment: 1:1 sitter at bedside Patient Tobacco Use Status: Never used Tobacco Second Hand Smoke Exposure: No Advance Directives Date on File: 02/12/23 service: No Current occupational status: unemployed Physical Exam ED Vital Signs: Vital Signs - 24 hr 08/17/23 14:53 Temperature 97.8 F Pulse Rate 143 H Respiratory Rate 20 Blood Pressure 115/73 Pulse Oximetry 97 Oxygen Delivery Method Room Air BMI result Body Mass Index 31.4 Course Course Course Narrative: Patient who came in for removal of 1 staple was noted to have a heart rate of 145 Patient has history of AFib, CHF and alcoholism hypertension cardiomyopathy Labs and EKG are ordered This is rapid medical exam pending full evaluation by ER provider Discharge Plan Discharge Prescriptions: No Action Jardiance 10 mg tablet 10 mg PO DAILY Qty: 30 1RF furosemide 40 mg tablet 80 mg PO DAILY 30 Days Qty: 60 1RF Protocol: Hold for SBP< HOLD for SBP < : 90 Rx Instructions: OVERDUE FOR APPT. PLEASE CALL [phone] TO SCHEDULE FOLLOW UP SO WE CAN CONTINUE REFILLING YOUR MEDICATIONS. losartan 25 mg tablet 25 mg PO Q OTHER DAY 30 Days Qty: 15 1RF Hold Instructions: Resume on 03/02/23. hold until seen by pcp Rx Instructions: OVERDUE FOR APPT. PLEASE CALL [phone] TO SCHEDULE FOLLOW UP SO WE CAN CONTINUE REFILLING YOUR MEDICATIONS. folic acid 1 mg tablet 1 mg PO DAILY Qty: 90 1RF Rx Instructions: OVERDUE FOR APPT. PLEASE CALL [phone] TO SCHEDULE FOLLOW UP SO WE CAN CONTINUE REFILLING YOUR MEDICATIONS. spironolactone 25 mg tablet 25 mg PO DAILY Qty: 90 3RF metoprolol succinate 50 mg Tablet Extended Release 24 Hr 50 mg PO DAILY Qty: 90 0RF Protocol: Hold for SBP/HR < HOLD for SBP < : 90 HOLD for HR < : 60 magnesium oxide 400 mg (241.3 mg magnesium) Tablet 400 mg PO DAILY Qty: 90 0RF digoxin 125 mcg (0.125 mg) Tablet 0.25 mg PO DAILY Qty: 60 0RF Eliquis 5 mg Tablet 5 mg PO BID Qty: 120 2RF thiamine mononitrate (vit B1) [Vitamin B-1 (mononitrate)] 100 mg tablet 100 mg PO DAILY
[2023-08-17 15:25] LABS: Basophils Percent Auto 0.3 % (0-2); Hematocrit 35.4 % (42.0-52.0); Hemoglobin 11.7 g/dl (14.0-18.0); Imm Gran Abs Auto 0.03 X10*3/uL (0.00-0.03); Imm Gran Pct Auto 0.4 % (0.0-0.4); Lymphocytes Absolute Auto 1.2 X10*3/uL (1.2-4.9); Lymphocytes Percent Auto 16.2 % (20-40); MANUAL DIFF FLAG NO; Mean Corpuscular HGB Conc 33.1 g/dl (31.0-36.0); Mean Corpuscular Hemoglobin 33.8 pg (27.0-33.0); Mean Corpuscular Volume 102.3 fL (80.0-98.0); Mean Platelet Volume 10.4 fL (9.4-12.4); Monocytes Absolute Auto 0.6 X10*3/uL (0.1-1.2); NRBC Pct Auto 0.3 /100WBC (0.0-0.2); Neutrophils Absolute Auto 5.3 x10*3/uL (2.0-8.3); Neutrophils Percent Auto 74.1 % (45-73); Platelet Count 109 X10*3/uL (160-400); Red Blood Count 3.46 X10*6/uL (4.60-5.80); Red Cell Distribution Width 15.9 % (11.0-16.0); White Blood Count 7.1 X10*3/uL (4.8-10.8)
[2023-08-17 15:32] LABS: INTERNATIONAL NORM RATIO 1.7 (0.9-1.1); Prothrombin Time 20.4 SEC (11.1-13.3)
[2023-08-17 15:37] LABS: Anion Gap 19 (12-20); Blood Urea Nitrogen 18 mg/dL (9-16); Calcium 9.4 mg/dL (8.4-10.2); Carbon Dioxide 22 mmol/L (22-29); Chloride 98 mmol/L (96-108); Creatinine Clr Calc Pharmacy 85.1; Estimated Glomerular Filt Rate > 60; Glucose Random 136 mg/dL (60-115); Potassium 4.2 mmol/L (3.3-5.1); Sodium 135 mmol/L (135-145)
[2023-08-17 15:45] LABS: Troponin-I High Sensitivity 56.7 ng/L (<3.5-35.0)
--- NOTE | 2023-08-17 15:45 | ED_ITS ---
HPI - General Adult General Chief complaint: Wound/Laceration Stated complaint: needs staple removed from head Time Seen by Provider: 08/17/23 15:41 History of Present Illness HPI narrative: Patient is a 58-year-old male presented today for staple removal. After getting his sandeep removed. Patient was noted to have an elevated heart rate. He did not have any chest pain he did not have any shortness of breath no diaphoresis. An EKG was done it shows patient in an atrial fibrillation pattern heart rate is about 150. Patient was brought back to the emergency department for further evaluation. He has no fever no chills no diaphoresis. He is currently on Eliquis. He has a known history of atrial fibrillation. Known history of alcohol use. History of congestive heart failure. History hypertension. Patient has cardiomyopathy Related Data Home Medications Medication Instructions Recorded Confirmed thiamine mononitrate (vit B1) 100 100 mg PO DAILY 09/16/22 06/06/23 mg tablet (Vitamin B-1 (mononitrate)) Previous Rx's Medication Instructions Recorded empagliflozin 10 mg tablet 10 mg PO DAILY #30 tabs 11/18/22 (Jardiance) magnesium oxide 400 mg (241.3 mg 400 mg PO DAILY #90 tabs 03/13/23 magnesium) tablet metoprolol succinate 50 mg 50 mg PO DAILY #90 tabs 03/13/23 tablet,extended release 24 hr digoxin 125 mcg (0.125 mg) tablet 0.25 mg (2 x 125 mcg (0.125 mg)) 03/14/23 PO DAILY #60 tabs furosemide 40 mg tablet 80 mg PO DAILY 30 days #60 tabs 04/13/23 losartan 25 mg tablet 25 mg PO Q OTHER DAY 30 days #15 04/13/23 tabs folic acid 1 mg tablet 1 mg PO DAILY #90 tabs 04/14/23 apixaban 5 mg tablet (Eliquis) 5 mg PO BID #120 tabs 05/24/23 spironolactone 25 mg tablet 25 mg PO DAILY #90 tabs 07/12/23 Allergies Allergy/AdvReac Type Severity Reaction Status Date / Time No Known Allergies Allergy Verified 08/17/23 14:55 [No Known Allergies*] Review of Systems 2 Review of Systems: Positive palpitation Yes all other systems are reviewed and are negative PMFSH Past Medical History Medical History Chronic CHF Alcoholism CHF (congestive heart failure) Alcohol dependence with withdrawal Cardiomyopathy Chronic HFrEF (heart failure with reduced ejection fraction) Atrial fibrillation with rapid ventricular response Alcoholic hepatitis HTN (hypertension) Surgical History No pertinent past surgical history Family History Family History Father CAD (coronary artery disease) Mother Atrial fibrillation Social History Social History Household Members: None Housing: Apartment Do you presently have visiting nurse or other home services: No Unable to assess alcohol history related to: Unable to respond Alcohol intake: current Alcohol intake frequency: holidays/special occasions only Alcohol type: hard liquor Comment: 1:1 sitter at bedside Patient Tobacco Use Status: Never used Tobacco Second Hand Smoke Exposure: No Advance Directives Date on File: 02/12/23 service: No Current occupational status: unemployed Physical Exam ED Vital Signs: Vital Signs - 24 hr 08/17/23 14:53 08/17/23 16:00 08/17/23 16:24 Temperature 97.8 F Pulse Rate 143 H 140 H 132 H Respiratory Rate 20 18 18 Blood Pressure 115/73 121/73 99/70 Pulse Oximetry 97 92 94 Oxygen Delivery Method Room Air Room Air Room Air BMI result Body Mass Index 31.4 Appearance: Alert. Oriented X3. No acute distress. Eyes: Pupils equal, round and reactive to light. ENT: Pharynx normal. Neck: Normal inspection. Neck supple. No lymph nodes noted. No crepitus CVS: Tachycardic and irregular Respiratory: No respiratory distress. Breath sounds normal. No Wheezing. No rales Abdomen: Soft and nontender. No rigidity. No distention. good BS x4 Skin: Skin warm and dry. Normal skin color. Normal skin turgor. Extremities: No lower extremity edema. Neurovascular intact to all extremities. No Lacerations. No Rash Neuro: Oriented X 3. No motor deficit. No sensory deficit. Moving all extermities. No slurred speech Medications Administered Discontinued Medications Generic Name Dose Route Start Last Admin Trade Name Freq PRN Reason Stop Dose Admin Metoprolol Tartrate 5 mg 08/17/23 15:43 08/17/23 15:58 Metoprolol Tartrate 5 Mg/5 Ml Vial IVPUSH 08/17/23 15:44 5 mg ONCE ONE Administration Medical Decision Making Medical Decision Making [facility] Narrative: History of ETOH history of cardiomyopathy patient's ejection fraction is proximally 15-20%. Multiple episodes of atrial fibrillation in the past leading to admission. Patient presented today for staple removal. The staple was removed heart rate was noted to be about 140-150. Patient was then sent into the main department for rate control. A dose of Lopressor was given after blood pressure was checked. My interpretation patient's initial EKG showed a heart rate of 150 atrial fibrillation ID QTC is slightly prolonged at 0501. QRS is normal. There has no acute ST segment elevation there is diffuse T-wave flattening noted. Patient was given 5 of Lopressor will monitor very carefully. On further discussion with patient. Patient did not take any of his medication today as he is running errands. Did not take his digoxin did not take his metoprolol did not take his Lasix. Will give patient back his medications. After monitoring for at least 15 minutes. Will give a 2nd dose of metoprolol as patient's heart rate is still 130 Patient's chest x-ray per Radiology showed a wedge like lesion in the right middle lobe. Can not exclude the possibility of blood clots. A CTA was ordered. Differential Diagnosis Differential Diagnoses: The differential diagnosis associated with the presentation includes Myocardial infarction, atrial fibrillation, ETOH abuse Admission/Observation Consideration of admission/observation: Escalation of care including admission/observation considered Lab Data [facility] Lab Attestation statement: I reviewed the patient's lab results. 08/17/23 15:16 08/17/23 15:16 Labs: Lab Results 08/17/23 08/17/23 Range/Units 15:16 15:57 WBC 7.1 (4.8-10.8) X10*3/uL RBC 3.46 L (4.60-5.80) X10*6/uL Hgb 11.7 L (14.0-18.0) g/dl Hct 35.4 L (42.0-52.0) % MCV 102.3 H (80.0-98.0) fL MCH 33.8 H (27.0-33.0) pg MCHC 33.1 (31.0-36.0) g/dl RDW 15.9 (11.0-16.0) % Plt Count 109 L D (160-400) X10*3/uL MPV 10.4 (9.4-12.4) fL Immature Gran % (Auto) 0.4 (0.0-0.4) % Neut % (Auto) 74.1 H (45-73) % Lymph % (Auto) 16.2 L (20-40) % [place] % (Auto) 9.0 (2-11) % Eos % (Auto) 0.0 (0-4) % Baso % (Auto) 0.3 (0-2) % Lymph # (Auto) 1.2 (1.2-4.9) X10*3/uL [place] # (Auto) 0.6 (0.1-1.2) X10*3/uL Eos # (Auto) 0.0 (0.0-0.4) X10*3/uL Baso # (Auto) 0.0 (0.0-0.2) X10*3/uL Abs Immat Gran (auto) 0.03 (0.00-0.03) X10*3/uL Absolute Neuts (auto) 5.3 (2.0-8.3) x10*3/uL Absolute Nucleated RBC 0.020 H (0.0-0.012) X10*3/uL Nucleated RBC % (auto) 0.3 H (0.0-0.2) /100WBC PT 20.4 H D (11.1-13.3) SEC INR 1.7 H (0.9-1.1) Sodium 135 (135-145) mmol/L Potassium 4.2 (3.3-5.1) mmol/L Chloride 98 (96-108) mmol/L Carbon Dioxide 22 (22-29) mmol/L Anion Gap 19 (12-20) BUN 18 H (9-16) mg/dL Creatinine 1.11 (0.5-1.4) mg/dL Estim Creat Clear Calc 85.1 Estimated GFR > 60 Random Glucose 136 H (60-115) mg/dL Calcium 9.4 D (8.4-10.2) mg/dL Total Bilirubin 4.5 H (0.0-1.0) mg/dL Direct Bilirubin 1.1 H (0.0-0.5) mg/dL AST 36 (5-37) U/L ALT 16 (0-40) U/L Alkaline Phosphatase 102 (39-117) U/L Troponin I High Sens 56.7 H D (<3.5-35.0) ng/L Total Protein 6.8 (6.5-8.0) g/dL Albumin 3.7 (3.5-5.0) g/dL Digoxin < 0.2 L (0.8-2.0) ng/mL Ethyl Alcohol < 10 mg/dL Independent Interpretation I performed an independent interpretation of an: EKG (Atrial fibrillation heart rate is 150) Critical Care Time Critical Care Time Critical Care Time: Yes Total Critical Care Time: 40 Attestation: I have personally provided 40 minutes of critical care time exclusive of time spent on separately billable procedures. ?Time includes review of lab data, radiology results, discussion with consultants, and monitoring for potential decompensation. ?Interventions were performed as documented above Discharge Plan Discharge Clinical Impression: Atrial fibrillation with rapid ventricular response Patient Disposition: Still a Patient Prescriptions: No Action Jardiance 10 mg tablet 10 mg PO DAILY Qty: 30 1RF furosemide 40 mg tablet 80 mg PO DAILY 30 Days Qty: 60 1RF Protocol: Hold for SBP< HOLD for SBP < : 90 Rx Instructions: OVERDUE FOR APPT. PLEASE CALL [phone] TO SCHEDULE FOLLOW UP SO WE CAN CONTINUE REFILLING YOUR MEDICATIONS. losartan 25 mg tablet 25 mg PO Q OTHER DAY 30 Days Qty: 15 1RF Hold Instructions: Resume on 03/02/23. hold until seen by pcp Rx Instructions: OVERDUE FOR APPT. PLEASE CALL [phone] TO SCHEDULE FOLLOW UP SO WE CAN CONTINUE REFILLING YOUR MEDICATIONS. folic acid 1 mg tablet 1 mg PO DAILY Qty: 90 1RF Rx Instructions: OVERDUE FOR APPT. PLEASE CALL [phone] TO SCHEDULE FOLLOW UP SO WE CAN CONTINUE REFILLING YOUR MEDICATIONS. spironolactone 25 mg tablet 25 mg PO DAILY Qty: 90 3RF metoprolol succinate 50 mg Tablet Extended Release 24 Hr 50 mg PO DAILY Qty: 90 0RF Protocol: Hold for SBP/HR < HOLD for SBP < : 90 HOLD for HR < : 60 magnesium oxide 400 mg (241.3 mg magnesium) Tablet 400 mg PO DAILY Qty: 90 0RF digoxin 125 mcg (0.125 mg) Tablet 0.25 mg PO DAILY Qty: 60 0RF Eliquis 5 mg Tablet 5 mg PO BID Qty: 120 2RF thiamine mononitrate (vit B1) [Vitamin B-1 (mononitrate)] 100 mg tablet 100 mg PO DAILY
[2023-08-17] MEDS: Metoprolol Tartrate 5 MG/5 ML VIAL IVPUSH ×2 (15:58→17:40)
[2023-08-17 16:00] VITALS: BP 121/73; PULSE 140; RESP 18; O2SAT 92
[2023-08-17 16:20] LABS: Alanine Aminotransferase 16 U/L (0-40); Albumin Level 3.7 g/dL (3.5-5.0); Alkaline Phosphatase 102 U/L (39-117); Aspartate Amino Transferase 36 U/L (5-37); Bilirubin Direct 1.1 mg/dL (0.0-0.5); Bilirubin Total 4.5 mg/dL (0.0-1.0); Digoxin < 0.2 ng/mL (0.8-2.0); Ethanol < 10 mg/dL; Total Protein 6.8 g/dL (6.5-8.0)
[2023-08-17 16:24] VITALS: BP 99/70; PULSE 132; RESP 18; O2SAT 94
[2023-08-17] MEDS: iohexoL 350 MG/ML 100 ML INFUS..BTL 65 ML IV (16:51)
[2023-08-17 17:13] LABS: Influenza A PCR NEGATIVE (Negative); Influenza B PCR NEGATIVE (Negative); Resp Syncy Virus RNA Qual PCR NEGATIVE (Negative); SARS COV2 PCR INHOUSE NEGATIVE (Negative)
[2023-08-17] MEDS: Empagliflozin 10 MG TABLET PO (17:38)
[2023-08-17] MEDS: Digoxin 0.25 MG TABLET PO (17:38)
[2023-08-17 17:39] VITALS: BP 113/90; PULSE 127; RESP 18; O2SAT 93
[2023-08-17] MEDS: Metoprolol Succinate ER 50 MG TAB.ER.24H PO (17:40)
--- NOTE | 2023-08-17 17:43 | PC.NURSE ---
pt aox4. ambulatory. comes to ED for staple removal after a fall and was found to be in rapid afib in triage brought straight back and IV obtained. EKG and labs done. pt says that today he did not take the majority of his medications bc he was going to be running errands and didnt want to be urinating all the time after taking lasix. 1st does of IV metoprolol given, without significant improvement in rate. BP checked 99/70. 2nd dose held until BP increased. 2nd dose given after BP was read as 113/90. pt reports that he has not been drinking much, last drink wednesday night he reports 1 drink
[2023-08-17 17:53] LABS: Appearance Urine Clear; Color Urine Dark Yellow; Glucose Urine UA Negative (Negative); Leukocyte Esterase Urine Trace (Negative); Nitrite Urine Negative (Negative); Specific Gravity - Urine >= 1.030 (1.005-1.025); UMIC TRIGGER UACC YES; Urine Blood Negative (Negative); Urine Ketones 40 mg/dL (Negative); Urine Protein 100 (2+) mg/dL (Neg-Trace)
[2023-08-17 17:57] LABS: Bacteria Urine None Seen (None Seen); RBC Urine 0-2 /HPF (0-2); Squamous Epithelial Cell Urine 0-2 /HPF (0-2); WBC Urine 0-5 /HPF (0-5)
--- NOTE | 2023-08-17 19:10 | MHC.EDTECH ---
This tech obtained labs for this patient,patient tolerated well
[2023-08-17] MEDS: dilTIAZem HCL 125 MG in 0.9 % Sodium Chloride 100 ML 10 MG IVCONT (19:30)
[2023-08-17 19:32] VITALS: BP 119/75; PULSE 153
[2023-08-17 19:34] LABS: B Type Natriuretic Peptide 2763 pg/mL (<100); Troponin-I High Sensitivity 61.6 ng/L (<3.5-35.0)
--- NOTE | 2023-08-17 19:36 | PHA.MEDREC ---
Pharmacy Consult ? Medication Reconciliation Pharmacy has completed the medication reconciliation. Patient had list of medication that he reports is uptodate. Patient think he is only taking 1 tablet of metoprolol and lasix 80 mg. Utilize claim history for dose. Patient reported he struggles with taking the lasix because he has to use the bathroom often. Judy Lowe, PharmD
--- NOTE | 2023-08-17 20:12 | P.HPHOSP_ITS ---
History of Present Illness Date of Service: 08/17/23 Attending physician on admission: Margarita Bourgeois Chief Complaint: staple removal 58-year-old male with past medical history of AFib, PE on Eliquis, cardiomyopathy EF 10-15% due to ETOH abuse, HTN, alcohol use disorder presented to the ED earlier for stable removal. Reports he had a stable placed on the right scalp about 3 weeks ago after an accidental fall and was unsure when it was supposed to be removed. Staple was removed. However, HR was noted to be elevated with subsequent ekg showing afib rvr, rate 150. He is asymptomatic. No sob, lightheadedness, palpitations, chest pain. No recent illness. No fevers chills, sore throat, congestion, abd pain, n/v/d, cough. He reportedly has been cutting back on alcohol consumption and states he had one beer wednesday, but no etoh since. He is noted to be tremulous with dark urine. States he is eating and drinking without difficulty. Drinks a lot of juice and soda. Vital signs otherwise stable. Hematology studies consistent with baseline. Renal function normal. Total bilirubin 4.5, direct bilirubin 1.1, AST 36, ALT 16. Initial troponin 56.7, repeat 61.6. BNP 2763. Chest CTA shows possible right upper lobe airspace disease but is negative for PE. Also shows cardiomegaly. In the ED, given 0.25 mg digoxin, 50 mg metoprolol. 5 mg IV Lopressor x2 without improvement in heart rate and patient has been started on Cardizem drip per protocol. Review of Systems 2 Review of Systems: General: No fevers, malaise, unintentional weight loss HEENT: No blurred vision, diplopia. No sore throat, nasal congestion, rhinorrhea, sinus pain, ear pain Cardiovascular: No chest pain, palpitations, or leg edema Respiratory: No shortness of breath, wheezing, cough GI: No abdominal pain, nausea, vomiting, diarrhea, constipation, melena, hematochezia : No dysuria, hematuria, increased urinary frequency, decreased urinary output MSK: No myalgia, back pain Neuro: No headaches, weakness, paresthesias Skin: No rashes or lesions [facility] Medical History Chronic CHF Alcoholism CHF (congestive heart failure) Alcohol dependence with withdrawal Cardiomyopathy Chronic HFrEF (heart failure with reduced ejection fraction) Atrial fibrillation with rapid ventricular response Alcoholic hepatitis HTN (hypertension) Family History Father CAD (coronary artery disease) Mother Atrial fibrillation Surgical History No pertinent past surgical history Social History Household Members: None Housing: Apartment Do you presently have visiting nurse or other home services: No Unable to assess alcohol history related to: Unable to respond Alcohol intake: current Alcohol intake frequency: holidays/special occasions only Alcohol type: hard liquor Comment: 1:1 sitter at bedside Patient Tobacco Use Status: Never used Tobacco Second Hand Smoke Exposure: No Advance Directives: Yes Advance Directives on File: Yes Advance Directives Date on File: 02/12/23 service: No Current occupational status: unemployed Meds Allergies Allergy/AdvReac Type Severity Reaction Status Date / Time No Known Allergies Allergy Verified 08/17/23 14:55 [No Known Allergies*] Active Medications: Current Medications Acetaminophen (Acetaminophen 325 Mg Tablet) 650 mg PO Q6H PRN PRN Reason: Pain, Mild (Pain Scale 1-3) Diltiazem HCl 125 mg/ Sodium (Chloride) 125 mls @ 0 mls/hr IVCONT .Q0M [facility]; Protocol Last Admin: 08/17/23 19:30 Dose: 10 mg/hr, 10 mls/hr Lactated Ringer's (Lr) 500 mls @ 500 mls/hr IVCONT .Q1H ONE Stop: 08/17/23 20:22 Ondansetron HCl (Ondansetron Hcl 4 Mg/2 Ml Vial) 4 mg IVPUSH Q8H PRN PRN Reason: Nausea and Vomiting Senna (Sennosides 8.6 Mg Tablet) 17.2 mg PO BEDTIME PRN PRN Reason: Constipation Sodium Chloride (0.9 % Sodium Chloride Flush 3 Ml Syringe) [facility] Medications Medication Instructions Recorded Confirmed Last Taken Type digoxin 125 mcg (0.125 mg) tablet 0.125 mg PO DAILY 08/17/23 08/17/23 08/16/23 History furosemide 80 mg tablet 80 mg PO DAILY 08/17/23 08/17/23 08/16/23 History losartan 25 mg tablet 25 mg PO DAILY 08/17/23 08/17/23 08/16/23 History Physical Exam 2 Vital Signs and Narrative: Vital Signs: Last Vital Signs Temp 97.8 F 08/17/23 14:53 Pulse 153 H 08/17/23 19:32 Resp 18 08/17/23 17:39 BP 119/75 08/17/23 19:32 Pulse Ox 93 08/17/23 17:39 O2 Del Method Room Air 08/17/23 17:39 BMI result Body Mass Index 31.4 Constitutional - Awake and Alert, aggitated, tremulous, No apparent distress Eyes - PERRLA, EOMI Cardiovascular - S1S2, irregularly irregular, tachycardic, No edema Respiratory - Normal lung expansion, Normal respiratory effort, No respiratory distress, CTA bilaterally Gastrointestinal - NT / ND; +BS; No rebound or guarding Extremities - no calf tenderness bilaterally, no swelling Skin - Warm/Dry Neurological - Alert & oriented x3 Psychological - Appropriate affect Results Labs 08/17/23 15:16 08/17/23 15:16 Labs: Laboratory Results - last 24 hr 08/17/23 08/17/23 08/17/23 15:16 15:57 16:30 MCV 102.3 H MCH 33.8 H MCHC 33.1 RDW 15.9 Plt Count 109 L D MPV 10.4 Immature Gran % (Auto) 0.4 Neut % (Auto) 74.1 H Lymph % (Auto) 16.2 L [place] % (Auto) 9.0 Eos % (Auto) 0.0 Baso % (Auto) 0.3 Lymph # (Auto) 1.2 [place] # (Auto) 0.6 Eos # (Auto) 0.0 Baso # (Auto) 0.0 Abs Immat Gran (auto) 0.03 Absolute Neuts (auto) 5.3 Absolute Nucleated RBC 0.020 H Nucleated RBC % (auto) 0.3 H PT 20.4 H D INR 1.7 H Anion Gap 19 Estim Creat Clear Calc 85.1 Estimated GFR > 60 Random Glucose 136 H Calcium 9.4 D Total Bilirubin 4.5 H Direct Bilirubin 1.1 H AST 36 ALT 16 Alkaline Phosphatase 102 Troponin I High Sens 56.7 H D B-Natriuretic Peptide Total Protein 6.8 Albumin 3.7 Urine Color Urine Appearance Urine pH Ur Specific [place] Urine Protein Urine Glucose (UA) Urine Ketones Urine Blood Urine Nitrite Ur Leukocyte Esterase Urine RBC Urine WBC Ur Squamous Epith Cells Urine Bacteria Hyaline Casts Digoxin < 0.2 L Ethyl Alcohol < 10 Influenza Type A (PCR) NEGATIVE Influenza Type B (PCR) NEGATIVE RSV RNA Qual (PCR) NEGATIVE SARS-CoV-2 RNA (RT-PCR) NEGATIVE 08/17/23 08/17/23 17:42 19:09 MCV MCH MCHC RDW Plt Count MPV Immature Gran % (Auto) Neut % (Auto) Lymph % (Auto) [place] % (Auto) Eos % (Auto) Baso % (Auto) Lymph # (Auto) [place] # (Auto) Eos # (Auto) Baso # (Auto) Abs Immat Gran (auto) Absolute Neuts (auto) Absolute Nucleated RBC Nucleated RBC % (auto) PT INR Anion Gap Estim Creat Clear Calc Estimated GFR Random Glucose Calcium Total Bilirubin Direct Bilirubin AST ALT Alkaline Phosphatase Troponin I High Sens 61.6 H B-Natriuretic Peptide 2763 H Total Protein Albumin Urine Color Dark Yellow Urine Appearance Clear Urine pH 6.0 Ur Specific [place] >= 1.030 H Urine Protein 100 (2+) H Urine Glucose (UA) Negative Urine Ketones 40 Urine Blood Negative Urine Nitrite Negative Ur Leukocyte Esterase Trace H Urine RBC 0-2 Urine WBC 0-5 Ur Squamous Epith Cells 0-2 Urine Bacteria None Seen Hyaline Casts 3-5 Digoxin Ethyl Alcohol Influenza Type A (PCR) Influenza Type B (PCR) RSV RNA Qual (PCR) SARS-CoV-2 RNA (RT-PCR) Imaging Radiologist's Impressions: Impressions Chest X-Ray 08/17/23 16:07 IMPRESSION: New focal opacity in the right upper lobe in the mid chest laterally. The findings may reflect pneumonia or contusion but other etiologies including thromboembolic disease can be considered. Stable cardiomegaly. The findings were discussed with Dr. Will 08/17/2023 at 4:30 PM. Chest CTA 08/17/23 17:00 IMPRESSION: 1. No evidence of pulmonary embolism. 2. Right upper lobe airspace disease. 3. Cardiomegaly. VTE: negative. Assessment and Plan (1) Atrial fibrillation with rapid ventricular response: Status: Acute Plan 58-year-old male with past medical history of AFib, PE on Eliquis, cardiomyopathy EF 10-15% due to ETOH abuse, HTN, alcohol use disorder admitted for afib with rvr. #Paroxysmal atrial fibrillation with RVR -EKG shows afib , rate 150, no pratima/depressions -suspect related to alcohol use given history but pt denies any intake since wednesday as well as medication noncompliance. Dig level <0.2 -Continue cardizem drip per protocol -Resume PO digoxin (given dose in ED) -COntinue metoprolol 50mg XL -cardiac diet -cardiology consult -monitor on tele #Alcohol use disorder -pt tremulous, but denies etoh use since wednesday (1 beer). ETOH level undetectable -No other evidence of withdrawal -monitor on CIWA at this time, initiate phenobarbital if scoring on scale -add PO thiamine and folic acid #Elevated troponins -initial 56.7, repeat 61.6, asymptomatic -likely demand in setting of RVR -EKG without acute ischemic changes -cardiology consult -monitor on tele #HFrEF/cardiomyopathy/htn -no acute exacerbation -continue po furosemide, jardiance, losartan, metoprolol #History PE -continue eliquis DVT prophyalxis- eliquis full code Pt requires inpt stay at least 2 midnights due to afib with rvr on cardizem per protocol Quality Stroke Does the patient have a stroke diagnosis?: No VTE Prior VTE?: Yes VTE Risk Level:: Medical - moderate - high VTE Device Contraindication: Treatment Not Indicated VTE Drug Contraindication: N/A - Med Ordered
[2023-08-17 21:31] LABS: Thyroid Stimulating Hormone 3.19 uIU/mL (0.32-4.0)
[2023-08-17] MEDS: Apixaban 5 MG TABLET PO (22:06)
[2023-08-17] MEDS: Thiamine HCL 100 MG TABLET PO (22:06)
[2023-08-17] MEDS: Folic Acid 1 MG TABLET PO (22:06)
[2023-08-17] MEDS: Lactated Ringers 500 ML IVCONT (22:18)
[2023-08-17 23:09] VITALS: PULSE 114; RESP 24
[2023-08-18] VITALS: BP 107/78; PULSE 104; RESP 24; TEMP 36.1; O2SAT 94
--- NOTE | 2023-08-18 02:00 | PC.NURSE ---
this rn reeducated pt on the need for hospital admission. pt eventually agreeable
[2023-08-18 03:08] VITALS: BP 104/61; PULSE 97; RESP 23; O2SAT 99
[2023-08-18 05:45] VITALS: BP 104/72; PULSE 76; RESP 17; TEMP 36.3; O2SAT 94
[2023-08-18 06:28] LABS: MANUAL DIFF FLAG NO
--- NOTE | 2023-08-18 06:29 | PC.NURSE ---
Hr maintaining under 90s diltiazem gtt paused @ 0545
[2023-08-18 06:31] LABS: Basophils Percent Auto 0.5 % (0-2); Eosinophils Absolute Auto 0.1 X10*3/uL (0.0-0.4); Hematocrit 33.7 % (42.0-52.0); Hemoglobin 11.2 g/dl (14.0-18.0); Imm Gran Abs Auto 0.01 X10*3/uL (0.00-0.03); Imm Gran Pct Auto 0.2 % (0.0-0.4); Lymphocytes Absolute Auto 1.3 X10*3/uL (1.2-4.9); Lymphocytes Percent Auto 21.5 % (20-40); Mean Corpuscular HGB Conc 33.2 g/dl (31.0-36.0); Mean Corpuscular Hemoglobin 33.9 pg (27.0-33.0); Mean Corpuscular Volume 102.1 fL (80.0-98.0); Mean Platelet Volume 11.2 fL (9.4-12.4); Monocytes Absolute Auto 0.6 X10*3/uL (0.1-1.2); Monocytes Percent Auto 9.5 % (2-11); Neutrophils Absolute Auto 4.2 x10*3/uL (2.0-8.3); Neutrophils Percent Auto 67.3 % (45-73); Platelet Count 103 X10*3/uL (160-400); Red Cell Distribution Width 16.2 % (11.0-16.0); White Blood Count 6.2 X10*3/uL (4.8-10.8)
[2023-08-18 06:44] LABS: Anion Gap 15 (12-20); Blood Urea Nitrogen 15 mg/dL (9-16); Calcium 8.8 mg/dL (8.4-10.2); Carbon Dioxide 23 mmol/L (22-29); Chloride 102 mmol/L (96-108); Creatinine Clr Calc Pharmacy 93.5; Estimated Glomerular Filt Rate > 60; Glucose Random 80 mg/dL (60-115); Potassium 3.9 mmol/L (3.3-5.1); Sodium 136 mmol/L (135-145)
--- NOTE | 2023-08-18 08:39 | PC.NURSE ---
Kirstie Singer APRN made this RN aware that patient wanted to leave AMA. Patient refusing discharge vitals. PIV x 2 removed. Pt A&Ox3, ambulatory with a steady gait.
--- NOTE | 2023-08-18 08:41 | PM.CNCAR ---
History of Present Illness History of Present Illness Date of Service: 08/18/23 Chief complaint: afib rvr PMFSH Past Medical History Medical History Chronic CHF Alcoholism CHF (congestive heart failure) Alcohol dependence with withdrawal Cardiomyopathy Chronic HFrEF (heart failure with reduced ejection fraction) Atrial fibrillation with rapid ventricular response Alcoholic hepatitis HTN (hypertension) Family History Family History Father CAD (coronary artery disease) Mother Atrial fibrillation Surgical History Surgical History No pertinent past surgical history Social History Social History Household Members: None Housing: Apartment Do you presently have visiting nurse or other home services: No Unable to assess alcohol history related to: Unable to respond Alcohol intake: current Alcohol intake frequency: a few times a week Alcohol type: hard liquor Comment: 1:1 sitter at bedside Patient Tobacco Use Status: Never used Tobacco Smoked in Last 30 Days: No Second Hand Smoke Exposure: No Use of substances other than those prescribed or required for medical reasons: No Advance Directives: Yes Advance Directives on File: Yes Advance Directives Date on File: 02/12/23 service: No Current occupational status: unemployed Meds Allergies Allergy/AdvReac Type Severity Reaction Status Date / Time No Known Allergies Allergy Verified 08/17/23 14:55 [No Known Allergies*] Active Medications: Current Medications Acetaminophen (Acetaminophen 325 Mg Tablet) 650 mg PO Q6H PRN PRN Reason: Pain, Mild (Pain Scale 1-3) Apixaban (Apixaban 5 Mg Tablet) 5 mg PO BID [facility] Last Admin: 08/17/23 22:06 Dose: 5 mg Digoxin (Digoxin 0.125 Mg Tablet) 0.125 mg PO DAILY [facility] Empagliflozin (Empagliflozin 10 Mg Tablet) 10 mg PO DAILY [facility] Folic Acid (Folic Acid 1 Mg Tablet) 1 mg PO DAILY [facility] Last Admin: 08/17/23 22:06 Dose: 1 mg Furosemide (Furosemide 40 Mg Tablet) 80 mg PO DAILY [facility]; Protocol Diltiazem HCl 125 mg/ Sodium (Chloride) 125 mls @ 0 mls/hr IVCONT .Q0M [facility]; Protocol Last Titration: 08/18/23 05:45 Dose: 0 mg/hr, 0 mls/hr Losartan Potassium (Losartan Potassium 25 Mg Tablet) 25 mg PO DAILY [facility]; Protocol Metoprolol Succinate (Metoprolol Succinate Er 50 Mg Tab.Er.24h) 50 mg PO DAILY [facility]; Protocol Ondansetron HCl (Ondansetron Hcl 4 Mg/2 Ml Vial) 4 mg IVPUSH Q8H PRN PRN Reason: Nausea and Vomiting Senna (Sennosides 8.6 Mg Tablet) 17.2 mg PO BEDTIME PRN PRN Reason: Constipation Sodium Chloride (0.9 % Sodium Chloride Flush 3 Ml Syringe) 3 ml IVFLUSH QSHIFT [facility] Last Admin: 08/18/23 01:51 Dose: Not Given Thiamine HCl (Thiamine Hcl 100 Mg Tablet) 100 mg PO DAILY [facility] Last Admin: 08/17/23 22:06 Dose: 100 mg Home Medications Medication Instructions Recorded Confirmed Last Taken Type digoxin 125 mcg (0.125 mg) tablet 0.125 mg PO DAILY 08/17/23 08/17/23 08/16/23 History furosemide 80 mg tablet 80 mg PO DAILY 08/17/23 08/17/23 08/16/23 History losartan 25 mg tablet 25 mg PO DAILY 08/17/23 08/17/23 08/16/23 History Physical Exam Vital Signs: Vital Signs: Last Vital Signs Temp 97.4 F 08/18/23 05:45 Pulse 76 08/18/23 05:45 Resp 17 08/18/23 05:45 BP 104/72 08/18/23 05:45 Pulse Ox 94 08/18/23 05:45 O2 Del Method Room Air 08/18/23 05:45 BMI result Body Mass Index 31.4 Objective Labs and Meds 08/18/23 06:11 08/18/23 06:11 Lab results: Laboratory Results - last 24 hr 08/17/23 08/17/23 08/17/23 15:16 15:57 16:30 WBC 7.1 RBC 3.46 L Hgb 11.7 L Hct 35.4 L MCV 102.3 H MCH 33.8 H MCHC 33.1 RDW 15.9 Plt Count 109 L D MPV 10.4 Immature Gran % (Auto) 0.4 Neut % (Auto) 74.1 H Lymph % (Auto) 16.2 L [place] % (Auto) 9.0 Eos % (Auto) 0.0 Baso % (Auto) 0.3 Lymph # (Auto) 1.2 [place] # (Auto) 0.6 Eos # (Auto) 0.0 Baso # (Auto) 0.0 Abs Immat Gran (auto) 0.03 Absolute Neuts (auto) 5.3 Absolute Nucleated RBC 0.020 H Nucleated RBC % (auto) 0.3 H PT 20.4 H D INR 1.7 H Sodium 135 Potassium 4.2 Chloride 98 Carbon Dioxide 22 Anion Gap 19 BUN 18 H Creatinine 1.11 Estim Creat Clear Calc 85.1 Estimated GFR > 60 Random Glucose 136 H Calcium 9.4 D Total Bilirubin 4.5 H Direct Bilirubin 1.1 H AST 36 ALT 16 Alkaline Phosphatase 102 Troponin I High Sens 56.7 H D B-Natriuretic Peptide Total Protein 6.8 Albumin 3.7 TSH 3.19 Urine Color Urine Appearance Urine pH Ur Specific [place] Urine Protein Urine Glucose (UA) Urine Ketones Urine Blood Urine Nitrite Ur Leukocyte Esterase Urine RBC Urine WBC Ur Squamous Epith Cells Urine Bacteria Hyaline Casts Digoxin < 0.2 L Ethyl Alcohol < 10 Influenza Type A (PCR) NEGATIVE Influenza Type B (PCR) NEGATIVE RSV RNA Qual (PCR) NEGATIVE SARS-CoV-2 RNA (RT-PCR) NEGATIVE 08/17/23 08/17/23 08/18/23 17:42 19:09 06:11 WBC 6.2 RBC 3.30 L Hgb 11.2 L Hct 33.7 L MCV 102.1 H MCH 33.9 H MCHC 33.2 RDW 16.2 H Plt Count 103 L MPV 11.2 Immature Gran % (Auto) 0.2 Neut % (Auto) 67.3 Lymph % (Auto) 21.5 [place] % (Auto) 9.5 Eos % (Auto) 1.0 Baso % (Auto) 0.5 Lymph # (Auto) 1.3 [place] # (Auto) 0.6 Eos # (Auto) 0.1 Baso # (Auto) 0.0 Abs Immat Gran (auto) 0.01 Absolute Neuts (auto) 4.2 Absolute Nucleated RBC 0.000 Nucleated RBC % (auto) 0.0 PT INR Sodium 136 Potassium 3.9 Chloride 102 Carbon Dioxide 23 Anion Gap 15 BUN 15 Creatinine 1.01 Estim Creat Clear Calc 93.5 Estimated GFR > 60 Random Glucose 80 Calcium 8.8 D Total Bilirubin Direct Bilirubin AST ALT Alkaline Phosphatase Troponin I High Sens 61.6 H B-Natriuretic Peptide 2763 H Total Protein Albumin TSH Urine Color Dark Yellow Urine Appearance Clear Urine pH 6.0 Ur Specific [place] >= 1.030 H Urine Protein 100 (2+) H Urine Glucose (UA) Negative Urine Ketones 40 Urine Blood Negative Urine Nitrite Negative Ur Leukocyte Esterase Trace H Urine RBC 0-2 Urine WBC 0-5 Ur Squamous Epith Cells 0-2 Urine Bacteria None Seen Hyaline Casts 3-5 Digoxin Ethyl Alcohol Influenza Type A (PCR) Influenza Type B (PCR) RSV RNA Qual (PCR) SARS-CoV-2 RNA (RT-PCR) Imaging Radiologist's impression: Impressions Chest X-Ray 08/17/23 16:07 IMPRESSION: New focal opacity in the right upper lobe in the mid chest laterally. The findings may reflect pneumonia or contusion but other etiologies including thromboembolic disease can be considered. Stable cardiomegaly. The findings were discussed with Dr. Will 08/17/2023 at 4:30 PM. Chest CTA 08/17/23 17:00 IMPRESSION: 1. No evidence of pulmonary embolism. 2. Right upper lobe airspace disease. 3. Cardiomegaly. VTE: negative. Assessment and Plan Plan Patient seen and examined at bedside. Procedures Date of Service Date of Service: 08/18/23
--- NOTE | 2023-08-18 09:05 | PM.DS ---
DS: Providers Provider Date of Service: 08/18/23 Date of admission: 08/17/23 20:02 Primary care physician: Unknown Physician Consults: 08/17/23 20:09 Consult to Cardiology Routine Consulting Provider: [facility] Cardi[facility] Services Reason for consultation: afib rvr DS: Diagnosis Discharge Diagnosis (1) Atrial fibrillation with rapid ventricular response: Status: Acute DS: Summary Hospital Course Hospital Course: History and physical as per admitting provider. 58-year-old male with past medical history of AFib, PE on Eliquis, cardiomyopathy EF 10-15% due to ETOH abuse, HTN, alcohol use disorder presented to the ED earlier for stable removal. Reports he had a stable placed on the right scalp about 3 weeks ago after an accidental fall and was unsure when it was supposed to be removed. Staple was removed. However, HR was noted to be elevated with subsequent ekg showing afib rvr, rate 150. He is asymptomatic. No sob, lightheadedness, palpitations, chest pain. No recent illness. No fevers chills, sore throat, congestion, abd pain, n/v/d, cough. He reportedly has been cutting back on alcohol consumption and states he had one beer wednesday, but no etoh since. He is noted to be tremulous with dark urine. States he is eating and drinking without difficulty. Drinks a lot of juice and soda. Vital signs otherwise stable. Hematology studies consistent with baseline. Renal function normal. Total bilirubin 4.5, direct bilirubin 1.1, AST 36, ALT 16. Initial troponin 56.7, repeat 61.6. BNP 2763. Chest CTA shows possible right upper lobe airspace disease but is negative for PE. Also shows cardiomegaly. In the ED, given 0.25 mg digoxin, 50 mg metoprolol. 5 mg IV Lopressor x2 without improvement in heart rate and patient has been started on Cardizem drip per protocol. 58-year-old man admitted for treatment of paroxysmal atrial fibrillation with rapid ventricular response rates as high as 150. Patient is started on IV Cardizem drip as per protocol, his digoxin resumed as well as metoprolol. He is also being treated for alcohol use disorder on phenobarbital. Unfortunately this morning patient reported that he could no longer stay here he reported that he had bills to pay and had to leave he stated I am a risk taker and said that he could not stay any longer. Unfortunately you have decided to leave against medical advice. He was noted to be alert and oriented to person time and place.He is not currently intoxicated or having distracting pain. He is not under any duress to leave the hospital and in fact would benefit to stay to complete treatment for atrial fibrillation. At this time a full evaluation and treatment has not occurred, he has been told that there is a need for continued evaluation of your condition. The risks of leaving against medical advice include but are not limited to , permanent disability, prolonged future hospitalization, prolonged illness. Patient was made aware of this and still has decided to leave against medical advice. He was told to return to the emergency room for continued or worsening symptoms. He should continue his current home medications of digoxin, metoprolol and Eliquis for atrial fibrillation. Time Attestation Discharge coordination time: Greater than 30 minutes Quality: Safe Use of Opioids Does Pt have an Active Cancer Diagnosis on the Problem List?: No Quality: Stroke Does the patient have a stroke diagnosis?: No Physical Exam Vital Signs: Vital Signs: Last Vital Signs Temp 97.4 F 08/18/23 05:45 Pulse 76 08/18/23 05:45 Resp 17 08/18/23 05:45 BP 104/72 08/18/23 05:45 Pulse Ox 94 08/18/23 05:45 O2 Del Method Room Air 08/18/23 05:45 BMI result Body Mass Index 31.4 Declined examination DS: Data Data Completed and Pending Completed studies during hospitalization [Text1]: Procedures Assistance with Respiratory Ventilation, Less than 24 Consecutive Hours, Continuous Positive Airway Pressure (12/22/22) Detoxification Services for Substance Abuse Treatment (05/17/23) Insertion of Endotracheal Airway into Trachea, Via Natural or Artificial Opening (11/11/21) Respiratory Ventilation, 24-96 Consecutive Hours (11/11/21) [employer] of Cardiac Rhythm, Single (11/11/21) Labs on day of discharge: Laboratory Results - last 24 hr 08/17/23 08/17/23 08/17/23 15:16 15:57 16:30 WBC 7.1 RBC 3.46 L Hgb 11.7 L Hct 35.4 L MCV 102.3 H MCH 33.8 H MCHC 33.1 RDW 15.9 Plt Count 109 L D MPV 10.4 Immature Gran % (Auto) 0.4 Neut % (Auto) 74.1 H Lymph % (Auto) 16.2 L [place] % (Auto) 9.0 Eos % (Auto) 0.0 Baso % (Auto) 0.3 Lymph # (Auto) 1.2 [place] # (Auto) 0.6 Eos # (Auto) 0.0 Baso # (Auto) 0.0 Abs Immat Gran (auto) 0.03 Absolute Neuts (auto) 5.3 Absolute Nucleated RBC 0.020 H Nucleated RBC % (auto) 0.3 H PT 20.4 H D INR 1.7 H Sodium 135 Potassium 4.2 Chloride 98 Carbon Dioxide 22 Anion Gap 19 BUN 18 H Creatinine 1.11 Estim Creat Clear Calc 85.1 Estimated GFR > 60 Random Glucose 136 H Calcium 9.4 D Total Bilirubin 4.5 H Direct Bilirubin 1.1 H AST 36 ALT 16 Alkaline Phosphatase 102 Troponin I High Sens 56.7 H D B-Natriuretic Peptide Total Protein 6.8 Albumin 3.7 TSH 3.19 Urine Color Urine Appearance Urine pH Ur Specific [place] Urine Protein Urine Glucose (UA) Urine Ketones Urine Blood Urine Nitrite Ur Leukocyte Esterase Urine RBC Urine WBC Ur Squamous Epith Cells Urine Bacteria Hyaline Casts Digoxin < 0.2 L Ethyl Alcohol < 10 Influenza Type A (PCR) NEGATIVE Influenza Type B (PCR) NEGATIVE RSV RNA Qual (PCR) NEGATIVE SARS-CoV-2 RNA (RT-PCR) NEGATIVE 08/17/23 08/17/23 08/18/23 17:42 19:09 06:11 WBC 6.2 RBC 3.30 L Hgb 11.2 L Hct 33.7 L MCV 102.1 H MCH 33.9 H MCHC 33.2 RDW 16.2 H Plt Count 103 L MPV 11.2 Immature Gran % (Auto) 0.2 Neut % (Auto) 67.3 Lymph % (Auto) 21.5 [place] % (Auto) 9.5 Eos % (Auto) 1.0 Baso % (Auto) 0.5 Lymph # (Auto) 1.3 [place] # (Auto) 0.6 Eos # (Auto) 0.1 Baso # (Auto) 0.0 Abs Immat Gran (auto) 0.01 Absolute Neuts (auto) 4.2 Absolute Nucleated RBC 0.000 Nucleated RBC % (auto) 0.0 PT INR Sodium 136 Potassium 3.9 Chloride 102 Carbon Dioxide 23 Anion Gap 15 BUN 15 Creatinine 1.01 Estim Creat Clear Calc 93.5 Estimated GFR > 60 Random Glucose 80 Calcium 8.8 D Total Bilirubin Direct Bilirubin AST ALT Alkaline Phosphatase Troponin I High Sens 61.6 H B-Natriuretic Peptide 2763 H Total Protein Albumin TSH Urine Color Dark Yellow Urine Appearance Clear Urine pH 6.0 Ur Specific [place] >= 1.030 H Urine Protein 100 (2+) H Urine Glucose (UA) Negative Urine Ketones 40 Urine Blood Negative Urine Nitrite Negative Ur Leukocyte Esterase Trace H Urine RBC 0-2 Urine WBC 0-5 Ur Squamous Epith Cells 0-2 Urine Bacteria None Seen Hyaline Casts 3-5 Digoxin Ethyl Alcohol Influenza Type A (PCR) Influenza Type B (PCR) RSV RNA Qual (PCR) SARS-CoV-2 RNA (RT-PCR) Discharge Plan Discharge Anticipated Discharge Date/Time: 08/18/23 08:40 Patient Disposition: Left Against Medical Advice Discharge Diagnosis: Atrial fibrillation with rapid ventricular response Discharge Medications: Continued Jardiance 10 mg tablet 10 mg PO DAILY Qty: 30 1RF folic acid 1 mg tablet 1 mg PO DAILY Qty: 90 1RF Rx Instructions: OVERDUE FOR APPT. PLEASE CALL [phone] TO SCHEDULE FOLLOW UP SO WE CAN CONTINUE REFILLING YOUR MEDICATIONS. metoprolol succinate 50 mg Tablet Extended Release 24 Hr 50 mg PO DAILY Qty: 90 0RF Protocol: Hold for SBP/HR < HOLD for SBP < : 90 HOLD for HR < : 60 Eliquis 5 mg Tablet 5 mg PO BID Qty: 120 2RF digoxin 125 mcg (0.125 mg) tablet 0.125 mg PO DAILY furosemide 80 mg tablet 80 mg PO DAILY losartan 25 mg tablet 25 mg PO DAILY Rx Instructions: OVERDUE FOR APPT. PLEASE CALL [phone] TO SCHEDULE FOLLOW UP SO WE CAN CONTINUE REFILLING YOUR MEDICATIONS. Discharge Orders: Discharge Order (Routine); Ordered 08/18/23 Ordered By: Kirstie Singer Diet: Advance to usual diet Activity on Discharge: As tolerated Care Plan Goals: Unfortunately you have decided to leave against medical advice. You are noted to be alert and oriented to person time and place. You are not currently intoxicated or having distracting pain. You are not under any duress to leave the hospital and in fact would be to your benefit to stay to complete treatment for atrial fibrillation. At this time a full evaluation and treatment has not occurred, you have been told that there is a need for continued evaluation of your condition. The risks of leaving against medical advice include but are not limited to , permanent disability, prolonged future hospitalization, prolonged illness. You were made aware of this and have decided to leave against medical advice. Return to the emergency room for continued or worsening symptoms. Health Concerns: Atrial fibrillation with rapid ventricular response Plan of Treatment: Left against medical advice Assessment: See discharge summary
== END 2023-08-18 09:10 | disposition left against medical advice (07) | DRG 201 ==
LOC: HO.ED 18:57 → HO.EDOVER 20:46
PROVIDERS: Emergency Medicine; Physician Assistant Medical; Admitting Provider Physician Assistant; Emergency Provider Emergency Medicine Emergency Medical Services; PCP Internal Medicine; Visit Provider Nurse Practitioner Acute Care
DX: I48.0 Paroxysmal atrial fibrillation (principal); I42.9 Cardiomyopathy, unspecified; I50.22 Chronic systolic (congestive) heart failure; I11.0 Hypertensive heart disease with heart failure; F10.20 Alcohol dependence, uncomplicated; Z20.822 Contact with and (suspected) exposure to COVID-19; Z86.711 Personal history of pulmonary embolism; Z79.01 Long term (current) use of anticoagulants; Z79.899 Other long term (current) drug therapy
CPT/HCPCS: 0241U; 36415; 71045; 71275; 80048; 80076; 80162; 80307; 81001; 83036; 83880; 83930; 84443; 84484; 85025; 85610; 93005; 99285; J1940; J2405; J7120; Q9967

== ENCOUNTER → 2023-08-17 14:58 | Outpatient (BNV) | payer OTHER, SELFPAY | PROVIDERS: Admitting Provider Physician Assistant; Emergency Provider Emergency Medicine Emergency Medical Services; PCP Internal Medicine; Visit Provider Internal Medicine Cardiovascular Disease | DX: I49.3 Ventricular premature depolarization (principal); R94.31 Abnormal electrocardiogram [ECG] [EKG] | CPT/HCPCS: 93010 ==

== ENCOUNTER → 2023-08-17 17:34 | Outpatient (BNV) | payer OTHER, SELFPAY | PROVIDERS: Emergency Provider Emergency Medicine Emergency Medical Services; Visit Provider Physician Assistant | DX: I48.91 Unspecified atrial fibrillation (principal); F10.90 Alcohol use, unspecified, uncomplicated | CPT/HCPCS: 99223; 99238 ==

== ENCOUNTER 2023-08-30 04:55 | Inpatient (IN) | payer OTHER, SELFPAY ==
--- NOTE | 2023-08-30 | ECG_ITS ---
Test Reason : SOB Blood Pressure : / mmHG Vent. Rate : 124 BPM Atrial Rate : 000 BPM P-R Int : 000 ms QRS Dur : 114 ms QT Int : 360 ms P-R-T Axes : 000 054 169 degrees QTc Int : 517 ms Atrial fibrillation with rapid ventricular response with premature ventricular or aberrantly conducted complexes Possible Anterior infarct (cited on or before 05-JUN-2023) T wave abnormality, consider lateral ischemia Abnormal ECG When compared with ECG of 17-AUG-2023 15:10, No significant change was found Referred By: Generic ED Physician Electronically Signed By:ALYCIA MALIK
--- NOTE | ~2023-08-30 | XR_ITS ---
EXAMINATION: XR CHEST CLINICAL INFORMATION: Shortness of breath. COMPARISON: 08/17/2023. TECHNIQUE: Frontal view of the chest was obtained. FINDINGS: The lung volumes are low. The cardiomediastinal silhouette is stable. There is a small right midlung field opacity improved compared to previous. There are no definitive significant pleural effusions. The bony structures and soft tissues are unremarkable. XR/XR chest 1V IMPRESSION: Low lung volumes. Small right midlung field opacity improved compared to previous. No new consolidation seen.
[2023-08-30 05:13] VITALS: BP 101/73; PULSE 114; RESP 24; TEMP 36.5; O2SAT 98; BMI 34.1
[2023-08-30 05:20] LABS: Basophils Percent Auto 0.5 % (0-2); Hematocrit 40.1 % (42.0-52.0); Hemoglobin 13.1 g/dl (14.0-18.0); Imm Gran Abs Auto 0.02 X10*3/uL (0.00-0.03); Imm Gran Pct Auto 0.3 % (0.0-0.4); Lymphocytes Absolute Auto 0.5 X10*3/uL (1.2-4.9); Lymphocytes Percent Auto 8.5 % (20-40); MANUAL DIFF FLAG NO; Mean Corpuscular HGB Conc 32.7 g/dl (31.0-36.0); Mean Corpuscular Hemoglobin 34.3 pg (27.0-33.0); Mean Platelet Volume 10.3 fL (9.4-12.4); Monocytes Absolute Auto 0.7 X10*3/uL (0.1-1.2); Monocytes Percent Auto 11.4 % (2-11); Neutrophils Percent Auto 79.3 % (45-73); Platelet Count 120 X10*3/uL (160-400); Red Blood Count 3.82 X10*6/uL (4.60-5.80); Red Cell Distribution Width 17.1 % (11.0-16.0); White Blood Count 6.3 X10*3/uL (4.8-10.8)
[2023-08-30 05:36] LABS: Anion Gap 25 (12-20); Blood Urea Nitrogen 21 mg/dL (9-16); Carbon Dioxide 18 mmol/L (22-29); Chloride 95 mmol/L (96-108); Creatinine Clr Calc Pharmacy 62.7; Estimated Glomerular Filt Rate 48; Glucose Random 225 mg/dL (60-115); Potassium 4.7 mmol/L (3.3-5.1); Sodium 133 mmol/L (135-145)
[2023-08-30 05:39] LABS: Troponin-I High Sensitivity 43.3 ng/L (<3.5-35.0)
--- NOTE | 2023-08-30 05:58 | ED_ITS ---
HPI - SOB/Dyspnea General Chief Complaint: Dyspnea Stated Complaint: sob Time Seen by Provider: 08/30/23 05:57 Source: patient Mode of arrival: EMS Limitations: no limitations History of Present Illness HPI Narrative: 58-year-old male with past medical history of AFib, PE on Eliquis, cardiomyopathy EF 10-15% due to ETOH abuse, CHF, HTN, presenting to the ED via EMS for shortness of breath. Patient has been short of breath for 2 days. He states that on the morning of arrival his shortness of breath got worse therefore he called an ambulance. Paramedics found the patient to be in atrial fibrillation with a rapid ventricular response of 170. He was given metoprolol 5 mg IV in his rate improved to the 130-145 range. Patient states that his shortness of breath improved significantly after the treatment by the paramedics. He denied chest pain. He denied fever, chills, nausea, vomiting or diarrhea. He has not noticed any increased swelling in his lower extremities. Related Data Home Medications Medication Instructions Recorded Confirmed digoxin 125 mcg (0.125 mg) tablet 0.125 mg PO DAILY 08/17/23 08/17/23 furosemide 80 mg tablet 80 mg PO DAILY 08/17/23 08/17/23 losartan 25 mg tablet 25 mg PO DAILY 08/17/23 08/17/23 Previous Rx's Medication Instructions Recorded empagliflozin 10 mg tablet 10 mg PO DAILY #30 tabs 11/18/22 (Jardiance) metoprolol succinate 50 mg 50 mg PO DAILY #90 tabs 03/13/23 tablet,extended release 24 hr folic acid 1 mg tablet 1 mg PO DAILY #90 tabs 04/14/23 apixaban 5 mg tablet (Eliquis) 5 mg PO BID #120 tabs 05/24/23 Allergies Allergy/AdvReac Type Severity Reaction Status Date / Time No Known Allergies Allergy Verified 08/17/23 14:55 [No Known Allergies*] Review of Systems 2 Review of Systems: Yes all other systems are reviewed and are negative [facility] Past Medical History [facility] Narrative: Social history: Patient denies tobacco use. He states he occasionally drinks alcohol but was not drinking over the past several days. He denies drug use. Medical History Chronic CHF Alcoholism CHF (congestive heart failure) Alcohol dependence with withdrawal Cardiomyopathy Chronic HFrEF (heart failure with reduced ejection fraction) Atrial fibrillation with rapid ventricular response Alcoholic hepatitis HTN (hypertension) Surgical History No pertinent past surgical history Family History Family History Father CAD (coronary artery disease) Mother Atrial fibrillation Social History Social History Household Members: None Housing: Apartment Do you presently have visiting nurse or other home services: No Unable to assess alcohol history related to: Unable to respond Alcohol intake: current Alcohol intake frequency: a few times a week Alcohol type: hard liquor Comment: 1:1 sitter at bedside Patient Tobacco Use Status: Never used Tobacco Smoked in Last 30 Days: No Second Hand Smoke Exposure: No Use of substances other than those prescribed or required for medical reasons: No Advance Directives: Yes Advance Directives on File: Yes Advance Directives Date on File: 02/12/23 service: No Current occupational status: unemployed Physical Exam 2 Vital Signs: Vital Signs: Last Vital Signs Temp 98.7 F 08/30/23 06:21 Pulse 124 H 08/30/23 07:25 Resp 20 08/30/23 07:25 BP 138/84 08/30/23 07:25 Pulse Ox 97 08/30/23 07:25 O2 Del Method Room Air 08/30/23 07:25 BMI result Body Mass Index 34.1 Vital signs revealed an elevated heart rate of 100, elevated respiratory rate of 20 and elevated blood pressure of 136/99. O2 saturation was normal 96% on room air Exam: General: Awake, alert , appears anxious Head: Normocephalic, atraumatic EENT: PERRL, Lids normal, sclera normal, conjunctiva normal, nose normal , ears normal, throat without erythema or exudates Neck: Supple, no adenopathy Lung: breath sounds symmetric, no wheezing, rales or rhonchi Chest: symmetric movement, nontender Heart: Irregular irregular rhythm, tachycardia, normal S1, S2 no murmurs or rubs Abdomen: soft, non-tender, nondistended, normal bowel sounds Back: no vertebral tenderness, no CVAT Extremities: no deformities, moves all extremities symmetrically, trace to 1+ pitting edema bilaterally symmetric Neuro: Awake, alert, oriented, normal speech, cranial nerves intact, moves all extremities symmetrically Psych: Pleasant, cooperative Medications Administered Discontinued Medications Generic Name Dose Route Start Last Admin Trade Name Shilo PRN Reason Stop Dose Admin Diltiazem HCl 20 mg 08/30/23 06:10 08/30/23 06:23 Diltiazem Hcl 50 Mg/10 Ml Vial IVPUSH 08/30/23 06:11 20 mg STAT STA Administration Diltiazem HCl 10 mg 08/30/23 07:20 08/30/23 07:27 Diltiazem Hcl 50 Mg/10 Ml Vial IVPUSH 08/30/23 07:21 10 mg STAT STA Administration Lorazepam 1 mg 08/30/23 07:20 08/30/23 07:25 Lorazepam 1 Mg Tablet PO 08/30/23 07:21 1 mg ONCE ONE Administration Medical Decision Making Medical Decision Making MDM Narrative: 58-year-old male with past medical history of AFib, PE on Eliquis, cardiomyopathy EF 10-15% due to ETOH abuse, CHF, HTN, presenting to the ED via EMS for shortness of breath x2 days which was worse on the morning arrival. Patient denied fever, chills, chest pain or cough. Patient was found by the paramedics to be in atrial fibrillation with rapid ventricular rate of 170. He was given metoprolol 5 mg IV in his rate improved to the 135-145 range. Patient's exam did reveal a rapid irregular heart rate with normal lung exam. Differential diagnosis: ?Includes but is not limited to myocardial infarction, myocardial ischemia, dyspnea secondary to atrial fibrillation with rapid ventricular rate, anemia, electrolyte abnormalities Following evaluation was ordered: CBC, CMP, troponin, BNP, chest x-ray, EKG, continuous cardiac monitoring, continuous pulse ox monitoring Patient was initially treated with the following: Diltiazem 20 mg IV Course: 07:25 My interpretation patient's laboratory evaluation is as follows: Low platelet count [id number] to his alcohol use disorder. Low sodium and chloride 133 and 95. Low bicarb 18. Elevated BUN 21. BNP elevated 3794-she has had similar elevations in the past. High sensitive troponin I was elevated at 43.3-he has had similar elevations in the past but he has also had some normal values - repeat and 08:15 hours. Total bilirubin is elevated 5.3, indirect bilirubin is only 1.6 suggesting elevated bilirubin secondary to liver disease most likely from his alcohol use disorder. Patient required another dose of diltiazem 10 mg IV. Patient has been here multiple times in the past and it has been difficult to control his rate therefore I will start the patient on a diltiazem drip and discuss admission with the covering hospitalist. 07:50 I did discuss the patient's presentation with the hospitalist, Dr. Rosales and the patient will be admitted for further management Admission/Observation Consideration of admission/observation: Escalation of care including admission/observation considered Consult Healthcare Provider Management of the patient was discussed with: Hospitalist Lab Data MDM Lab Attestation statement: I reviewed the patient's lab results. 08/30/23 05:15 08/30/23 05:15 Labs: Lab Results 08/30/23 Range/Units 05:15 WBC 6.3 (4.8-10.8) X10*3/uL RBC 3.82 L (4.60-5.80) X10*6/uL Hgb 13.1 L (14.0-18.0) g/dl Hct 40.1 L (42.0-52.0) % MCV 105.0 H (80.0-98.0) fL MCH 34.3 H (27.0-33.0) pg MCHC 32.7 (31.0-36.0) g/dl RDW 17.1 H (11.0-16.0) % Plt Count 120 L (160-400) X10*3/uL MPV 10.3 (9.4-12.4) fL Immature Gran % (Auto) 0.3 (0.0-0.4) % Neut % (Auto) 79.3 H (45-73) % Lymph % (Auto) 8.5 L (20-40) % [place] % (Auto) 11.4 H (2-11) % Eos % (Auto) 0.0 (0-4) % Baso % (Auto) 0.5 (0-2) % Lymph # (Auto) 0.5 L (1.2-4.9) X10*3/uL [place] # (Auto) 0.7 (0.1-1.2) X10*3/uL Eos # (Auto) 0.0 (0.0-0.4) X10*3/uL Baso # (Auto) 0.0 (0.0-0.2) X10*3/uL Abs Immat Gran (auto) 0.02 (0.00-0.03) X10*3/uL Absolute Neuts (auto) 5.0 (2.0-8.3) x10*3/uL Absolute Nucleated RBC 0.000 (0.0-0.012) X10*3/uL Nucleated RBC % (auto) 0.0 (0.0-0.2) /100WBC Sodium 133 L (135-145) mmol/L Potassium 4.7 D (3.3-5.1) mmol/L Chloride 95 L (96-108) mmol/L Carbon Dioxide 18 L (22-29) mmol/L Anion Gap 25 H (12-20) BUN 21 H (9-16) mg/dL Creatinine 1.52 H (0.5-1.4) mg/dL Estim Creat Clear Calc 62.7 Estimated GFR 48 Random Glucose 225 H (60-115) mg/dL Calcium 10.0 D (8.4-10.2) mg/dL Total Bilirubin 5.3 H (0.0-1.0) mg/dL Direct Bilirubin 1.6 H (0.0-0.5) mg/dL AST 44 H (5-37) U/L ALT 23 (0-40) U/L Alkaline Phosphatase 144 H (39-117) U/L Troponin I High Sens 43.3 H (<3.5-35.0) ng/L B-Natriuretic Peptide 3794 H (<100) pg/mL Total Protein 7.3 (6.5-8.0) g/dL Albumin 4.0 (3.5-5.0) g/dL Independent Interpretation I performed an independent interpretation of an: EKG Interpretation: My interpretation patient's 12 EKG is as follows: Atrial fibrillation with a rapid ventricular rate of 124, prolonged QRS duration of 114, prolonged QTC of 517 milliseconds, poor R-wave progression from V1 to V3, occasional PVC, no ST segment elevation, no ST segment depression. My interpretation patient's chest x-ray is as follows: No CHF, no infiltrates Radiology Impression Discussion of test interpretation with radiology: I have reviewed the radiologist's reading. Radiologist Impression: XR chest 1V IMPRESSION: Low lung volumes. Small right midlung field opacity improved compared to previous. No new consolidation seen. Dictated By: Arturo Blanco Independent Historian Clinical information obtained from an independent historian. History obtained from or confirmed by: EMS External Record Review External record reviewed: Inpatient record Chronic Conditions Patient?s care impacted by: Other (Chronic atrial fibrillation, alcoholic cardiomyopathy) Critical Care Time Critical Care Time Total Critical Care Time: 45 Attestation: Critical Care: The patient was critically ill with a high probability of imminent or life threatening deterioration. I spent greater than 30 minutes of discontinuous time evaluating the patient,delivering critical care at the bedside, discussing and evaluating pertinent data with consultants. Critical care time does not include time spent performing separately billable procedures or teaching. Total time spent performing critical care was 45 minutes. Discharge Plan Discharge Clinical Impression: Atrial fibrillation with rapid ventricular response Patient Disposition: Admitted As Inpatient
[2023-08-30 06:21] VITALS: BP 136/99; PULSE 125; RESP 29; TEMP 37.1; O2SAT 97
[2023-08-30] MEDS: dilTIAZem HCL 50 MG/10 ML VIAL 20 MG IVPUSH (06:23)
[2023-08-30 06:31] VITALS: PULSE 100; RESP 20; O2SAT 96
[2023-08-30 06:37] LABS: Alanine Aminotransferase 23 U/L (0-40); Alkaline Phosphatase 144 U/L (39-117); Aspartate Amino Transferase 44 U/L (5-37); Bilirubin Direct 1.6 mg/dL (0.0-0.5); Bilirubin Total 5.3 mg/dL (0.0-1.0); Total Protein 7.3 g/dL (6.5-8.0)
[2023-08-30 06:38] LABS: B Type Natriuretic Peptide 3794 pg/mL (<100)
[2023-08-30 07:25] VITALS: BP 138/84; PULSE 124; RESP 20; O2SAT 97
[2023-08-30] MEDS: LORazepam 1 MG TABLET PO (07:25)
[2023-08-30] MEDS: dilTIAZem HCL 50 MG/10 ML VIAL 10 MG IVPUSH (07:27)
[2023-08-30] MEDS: ondansetron HCL 4 MG/2 ML VIAL IVPUSH (08:26)
[2023-08-30] MEDS: dilTIAZem HCL 125 MG in 0.9 % Sodium Chloride 100 ML 10 MG IVCONT (08:31)
--- NOTE | 2023-08-30 08:49 | PHA.MEDREC ---
Pharmacy Consult ? Medication Reconciliation Pharmacy has completed the medication reconciliation. Patient verbally confirmed with me as well as had a list.
--- NOTE | 2023-08-30 10:14 | PM.IMHP ---
History of Present Illness Date of Service: 08/30/23 Chief Complaint: Shortness of breath and palpitations. 57-year-old gentleman with past medical history of atrial fibrillation on Eliquis, CHF with reduced EF 10-20%, alcohol-related cardiomyopathy, history of alcohol use disorder, alcoholic hepatitis, hypertension presented to [facility] with symptoms of shortness of breath and palpitation that started 2 days ago patient start noticing shortness of breath associated with palpitations, denies chest pain was unable to lie flat ,and slept on a chair, the next morning continued to have persistent symptoms that were gradually getting worse, associated with lightheadedness, no dizziness, no fevers, no chills, no cough, no sick contacts as per patient he is compliant with home medication, he denies daily use of alcohol his last alcohol intake was 2 weeks ago as per patient drink 1-2 beer on some weekends, patient was recently evaluated at [facility] for ICD placement, patient has had multiple admissions in the past with similar symptoms last admission he left AMA, due to persistent shortness of breath patient called an ambulance, paramedics found him in atrial fibrillation with a rapid ventricular response of 170 patient was treated with 5 mg of IV metoprolol heart rate improved to 130 to 145 range his shortness of breath improved patient in the emergency room was noted to have persistent atrial fibrillation with RVR therefore treated with IV Cardizem 20 mg, followed by repeat bolus of IV Cardizem 10 mg, his lab work showed Low sodium and chloride 133 and 95. Low bicarb 18. Elevated BUN 21. BNP elevated 3794- has had similar elevations in the past. High sensitive troponin I was elevated at 43.3-, repeat unchanged, he has had similar elevations in the past, Total bilirubin is elevated 5.3, indirect bilirubin only 1.6 suggesting elevated bilirubin secondary to liver disease most likely from his alcohol use disorder. Patient will be admitted to medical floor for continued monitoring and treatment for atrial fibrillation with RVR, acute kidney injury and acute on chronic mild CHF due to reduced EF. Review of Systems Review of Systems: General: No fevers, malaise, unintentional weight loss HEENT: No blurred vision, diplopia. No sore throat, nasal congestion, rhinorrhea, sinus pain, ear pain Cardiovascular: No chest pain,+ palpitations, ch. leg edema Respiratory: shortness of breath, Orthopnea GI: No abdominal pain, nausea, vomiting, diarrhea, constipation, melena, hematochezia : No dysuria, hematuria, increased urinary frequency, decreased urinary output MSK: No myalgia, back pain Neuro: No headaches, weakness, Skin: No rashes or lesions [facility] Medical History Chronic CHF Alcoholism CHF (congestive heart failure) Alcohol dependence with withdrawal Cardiomyopathy Chronic HFrEF (heart failure with reduced ejection fraction) Atrial fibrillation with rapid ventricular response Alcoholic hepatitis HTN (hypertension) Family History Father CAD (coronary artery disease) Mother Atrial fibrillation Surgical History No pertinent past surgical history Social History Household Members: None Housing: Apartment Do you presently have visiting nurse or other home services: No Unable to assess alcohol history related to: Unable to respond Alcohol intake: current Alcohol intake frequency: a few times a week Alcohol type: hard liquor Comment: 1:1 sitter at bedside Patient Tobacco Use Status: Never used Tobacco Second Hand Smoke Exposure: No Advance Directives Date on File: 02/12/23 service: No Current occupational status: unemployed Meds Allergies Allergy/AdvReac Type Severity Reaction Status Date / Time No Known Allergies Allergy Verified 08/17/23 14:55 [No Known Allergies*] Active Medications: Current Medications Apixaban (Apixaban 5 Mg Tablet) 5 mg PO BID [facility] Digoxin (Digoxin 0.125 Mg Tablet) 0.125 mg PO DAILY [facility] Empagliflozin (Empagliflozin 10 Mg Tablet) 10 mg PO DAILY [facility] Folic Acid (Folic Acid 1 Mg Tablet) 1 mg PO DAILY [facility] Diltiazem HCl 125 mg/ Sodium (Chloride) 125 mls @ 0 mls/hr IVCONT .Q0M [facility]; Protocol Last Admin: 08/30/23 08:31 Dose: 10 mg/hr, 10 mls/hr Losartan Potassium (Losartan Potassium 25 Mg Tablet) 25 mg PO DAILY [facility]; Protocol Metoprolol Succinate (Metoprolol Succinate Er 50 Mg Tab.Er.24h) 50 mg PO DAILY [facility]; Protocol Metoprolol Tartrate (Metoprolol Tartrate 50 Mg Tablet) 50 mg PO ONCE ONE; Protocol Stop: 08/30/23 10:12 Home Medications Medication Instructions Recorded Confirmed Last Taken Type digoxin 125 mcg (0.125 mg) tablet 0.125 mg PO DAILY 08/17/23 08/30/23 08/16/23 History losartan 25 mg tablet 25 mg PO DAILY 08/17/23 08/30/23 08/16/23 History furosemide 40 mg tablet 40 mg PO DAILY 08/30/23 08/30/23 Unknown History Physical Exam Vital Signs and Narrative: Vital Signs: Last Vital Signs Temp 98.7 F 08/30/23 06:21 Pulse 124 H 08/30/23 07:25 Resp 20 08/30/23 07:25 BP 138/84 08/30/23 07:25 Pulse Ox 97 08/30/23 07:25 O2 Del Method Room Air 08/30/23 07:25 BMI result Body Mass Index 34.1 Const: Other: General awake alert x3, resting comfortably in no acute distress. Neck supple, no JVD. CVS irregular, rate rhythm, Respiratory lungs clear to auscultation, no respiratory distress, no wheeze, no rhonchi. Gastrointestinal abdomen soft, non tender, bowel sounds audible, no guarding , no rigidity. Extremities mild pitting edema. Neuro nonfocal ,speech clear, no tremors. Skin no rash, no jaundice Psych appropriate affect. Results Labs 08/30/23 05:15 08/30/23 05:15 Labs: Laboratory Results - last 24 hr 08/30/23 08/30/23 05:15 08:23 MCV 105.0 H MCH 34.3 H MCHC 32.7 RDW 17.1 H Plt Count 120 L MPV 10.3 Immature Gran % (Auto) 0.3 Neut % (Auto) 79.3 H Lymph % (Auto) 8.5 L [place] % (Auto) 11.4 H Eos % (Auto) 0.0 Baso % (Auto) 0.5 Lymph # (Auto) 0.5 L [place] # (Auto) 0.7 Eos # (Auto) 0.0 Baso # (Auto) 0.0 Abs Immat Gran (auto) 0.02 Absolute Neuts (auto) 5.0 Absolute Nucleated RBC 0.000 Nucleated RBC % (auto) 0.0 Anion Gap 25 H Estim Creat Clear Calc 62.7 Estimated GFR 48 Random Glucose 225 H Calcium 10.0 D Total Bilirubin 5.3 H Direct Bilirubin 1.6 H AST 44 H ALT 23 Alkaline Phosphatase 144 H Troponin I High Sens 43.3 H 43.0 H B-Natriuretic Peptide 3794 H Total Protein 7.3 Albumin 4.0 Imaging Radiologist's Impressions: Impressions Chest X-Ray 08/30/23 05:11 IMPRESSION: Low lung volumes. Small right midlung field opacity improved compared to previous. No new consolidation seen. Assessment and Plan (1) Atrial fibrillation with rapid ventricular response: Status: Acute Plan 58-year-old male with past medical history of AFib, PE on Eliquis, cardiomyopathy EF 10-15% due to ETOH abuse, HTN, alcohol use disorder admitted for afib with rvr and mild CHF exacerbation. # persistent atrial fibrillation with RVR -EKG shows afib , with RVR -Continue cardizem drip per protocol -Resume PO digoxin and metoprolol 50mg XL -cardiac diet -cardiology consult -monitor on tele #Alcohol use disorder -denies daily use of alcohol, last alcohol intake 2 weeks ago, check alcohol level -No other evidence of withdrawal -monitor on CIWA at this time, initiate phenobarbital if scoring on scale -continue folic acid #Elevated troponins -chronically elevated, no chest pain,likely demand in setting of RVR -EKG without acute ischemic changes -cardiology consult -monitor on tele # acute kidney injury likely due to AFib and RVR, monitor BMP, hold nephrotoxins # hyperglycemia, no history of diabetes will check hemoglobin A1c # mild acute hyponatremia will check serum osmolality question due to volume overload/beer potomania, follow BMP # obesity type 1 recommend low-calorie diet # alcoholic liver disease with thrombocytopenia Recommended complete abstinence, asymptomatic # mild acute on chronic HFrEF/cardiomyopathy -chronically elevated BNP, will give 1 dose of IV Lasix -continue po jardiance, losartan, metoprolol #History PE -continue eliquis DVT prophyalxis- eliquis full code Pt requires inpt stay at least 2 midnights due to afib with rvr on cardizem drip per protocol Quality Stroke Does the patient have a stroke diagnosis?: No VTE Prior VTE?: No VTE Risk Level:: Medical - moderate - high VTE Device Contraindication: Treatment Not Indicated VTE Drug Contraindication: N/A - Med Ordered
[2023-08-30 10:37] LABS: Ethanol < 10 mg/dL
[2023-08-30 10:45] VITALS: BP 122/82; PULSE 97; RESP 21; O2SAT 93
[2023-08-30] MEDS: Metoprolol Tartrate 50 MG TABLET PO (11:05)
[2023-08-30] MEDS: Digoxin 0.125 MG TABLET PO (11:08)
[2023-08-30] MEDS: Apixaban 5 MG TABLET PO (11:08)
[2023-08-30] MEDS: Furosemide 40 MG/4 ML VIAL IVPUSH (11:09)
[2023-08-30 11:39] LABS: Estimated Average Glucose 108 mg/dL; Hemoglobin A1c % 5.4 % (<6.0)
[2023-08-30 11:51] LABS: Osmolality, Serum 291 mosm/kg (281-305)
--- NOTE | 2023-08-30 12:12 | PC.NURSE ---
Pt noted to have dark orange/ red urine in urinal at bedside, small amount. Pt reports his urine is not normally that color but has been in the past. Admitting MD notified, requested a bladder scan. Bladder scan revealed 41 mL, no urination urge. MD notified.
--- NOTE | 2023-08-30 12:20 | P.CONCA_ITS ---
History of Present Illness History of Present Illness Date of Service: 08/30/23 Chief complaint: Atrial Fibrillation w/RVR Narrative: This is a cardiology consultation regarding atrial fibrillation rapid rate. Patient has been seen numerous times in the past and he has had several hospitalizations for the same reason. History of alcohol abuse for a long time although patient states he has not done that in the last month. He has been cardioverted twice in the past but then went back into atrial fibrillation, most likely from alcohol excess. He has been on amiodarone, digoxin as well as beta- blockers for rate control purposes. In spite of this, he still runs fast intermittently. Current meds however, does not have amiodarone. He states he still takes his metoprolol/digoxin regularly but he told the RN in the ER that he does miss doses. Hence not clear what his correct. Any case, because of increasing shortness of breath he got admitted and he is in atrial fibrillation rapid rate. He is currently on a Cardizem drip. Review of Systems 2 Review of Systems: Yes all other systems are reviewed and are negative Constitutional: Constitutional: Reports as per HPI and Reports no additional constitutional complaints Eyes: Eyes: Reports as per HPI and Denies no additional eye complaints ENT: Denies system reviewed and no additional complaints, except as documented and Reports as per HPI Cardiovascular: Cardiovascular: Reports as per HPI, Reports no additional cardiovascular complaints, Denies acrocyanosis, Denies cool extremities, Denies chest pain, Denies leg edema, Denies lightheadedness, Reports palpitations and Reports dyspnea Respiratory: Respiratory: Reports as per HPI, Denies no additional respiratory complaints and Reports dyspnea Gastrointestinal: Gastrointestinal: Reports as per HPI and Denies no additional gastrointestinal complaints Genitourinary: Genitourinary: Reports no additional male genitourinary complaints and Reports as per HPI Musculoskeletal: Musculoskeletal: Reports no additional musculoskeletal complaints and Reports as per HPI Integumentary/Breasts: Skin/Breast: Reports system reviewed and no additional complaints, except as docu Neurologic: Reports system reviewed and no additional complaints, except as documented and Reports as per HPI Psychiatric: Psychiatric: Reports no additional psychiatric complaints and Reports as per HPI Endocrine: Endocrine: Reports no additional endocrine complaints, Reports as per HPI and Reports palpitations Hematologic/Lymphatic: Hematologic/Lymphatic: Reports no additional hematologic/lymphatic complaints and Reports as per HPI Allergic/Immunologic: Allergic/Immunologic: Reports no additional allergic/immunologic complaints and Reports as per [facility] Past Medical History Medical History Chronic CHF Alcoholism CHF (congestive heart failure) Alcohol dependence with withdrawal Cardiomyopathy Chronic HFrEF (heart failure with reduced ejection fraction) Atrial fibrillation with rapid ventricular response Alcoholic hepatitis HTN (hypertension) Family History Family History Father CAD (coronary artery disease) Mother Atrial fibrillation Surgical History Surgical History No pertinent past surgical history Social History Social History Household Members: None Housing: Apartment Do you presently have visiting nurse or other home services: No Unable to assess alcohol history related to: Unable to respond Alcohol intake: current Alcohol intake frequency: a few times a week Alcohol type: hard liquor Comment: 1:1 sitter at bedside Patient Tobacco Use Status: Never used Tobacco Smoked in Last 30 Days: No Second Hand Smoke Exposure: No Use of substances other than those prescribed or required for medical reasons: No Advance Directives: Yes Advance Directives on File: Yes Advance Directives Date on File: 02/12/23 service: No Current occupational status: unemployed Meds Allergies Allergy/AdvReac Type Severity Reaction Status Date / Time No Known Allergies Allergy Verified 08/17/23 14:55 [No Known Allergies*] Active Medications: Current Medications Acetaminophen (Acetaminophen 325 Mg Tablet) 650 mg PO Q6H PRN PRN Reason: Pain, Mild (Pain Scale 1-3) Apixaban (Apixaban 5 Mg Tablet) 5 mg PO BID REPLACED BY [facility] Last Admin: 08/30/23 11:08 Dose: 5 mg Benzonatate (Benzonatate 100 Mg Capsule) 100 mg PO TID PRN PRN Reason: Cough Digoxin (Digoxin 0.125 Mg Tablet) 0.125 mg PO DAILY REPLACED BY [facility] Last Admin: 08/30/23 11:08 Dose: 0.125 mg Empagliflozin (Empagliflozin 10 Mg Tablet) 10 mg PO DAILY REPLACED BY [facility] Folic Acid (Folic Acid 1 Mg Tablet) 1 mg PO DAILY REPLACED BY [facility] Diltiazem HCl 125 mg/ Sodium (Chloride) 125 mls @ 0 mls/hr IVCONT .Q0M REPLACED BY [facility]; Protocol Last Admin: 08/30/23 08:31 Dose: 10 mg/hr, 10 mls/hr Magnesium Hydroxide (Milk Of Magnesia 30 Ml Oral.Susp) 30 ml PO DAILY PRN PRN Reason: Constipation Melatonin (Melatonin 3 Mg Tablet) 6 mg PO BEDTIME PRN PRN Reason: Insomnia Metoprolol Succinate (Metoprolol Succinate Er 50 Mg Tab.Er.24h) 50 mg PO DAILY REPLACED BY [facility]; Protocol Ondansetron HCl (Ondansetron Hcl 4 Mg/2 Ml Vial) 4 mg IVPUSH Q8H PRN PRN Reason: Nausea and Vomiting Senna (Sennosides 8.6 Mg Tablet) 17.2 mg PO BEDTIME PRN PRN Reason: Constipation Sodium Chloride (0.9 % Sodium Chloride Flush 3 Ml Syringe) 3 ml IVFLUSH QSHIFT REPLACED BY [facility] Home Medications Medication Instructions Recorded Confirmed Last Taken Type digoxin 125 mcg (0.125 mg) tablet 0.125 mg PO DAILY 08/17/23 08/30/23 08/16/23 History losartan 25 mg tablet 25 mg PO DAILY 08/17/23 08/30/23 08/16/23 History furosemide 40 mg tablet 40 mg PO DAILY 08/30/23 08/30/23 Unknown History Physical Exam 2 Vital Signs: Vital Signs: Last Vital Signs Temp 98.7 F 08/30/23 06:21 Pulse 97 08/30/23 10:45 Resp 21 H 08/30/23 10:45 BP 122/82 08/30/23 10:45 Pulse Ox 93 08/30/23 10:45 O2 Del Method Room Air 08/30/23 10:45 BMI result Body Mass Index 34.1 Const: General: comfortable and no acute distress O rientation/consciousness: patient oriented x3 HEENT: Other: Unremarkable Head: Yes normal to inspection Neck: Neck: Yes normal visual inspection Chest: Chest palpation & inspection: normal inspection of the chest Resp: Auscultation: clear to auscultation bilaterally Cardio: Palpation: normal PMI Heart sounds: S1 normal heart sound present, S2 normal heart sound present, no gallops, no murmurs and no rubs GI: Palpation (GI): Soft to palpation Back/Spine/Pelvis: Other: unremarkable Skin: General skin exam: no rashes or lesions noted Neuro: General: patient oriented x3 Extrem: General: Yes normal to inspection Psych: Mental Status: mental status grossly normal Objective Labs and Meds 08/30/23 05:15 08/30/23 05:15 Lab results: Laboratory Results - last 24 hr 08/30/23 08/30/23 08/30/23 05:15 08:23 11:06 WBC 6.3 RBC 3.82 L Hgb 13.1 L Hct 40.1 L MCV 105.0 H MCH 34.3 H MCHC 32.7 RDW 17.1 H Plt Count 120 L MPV 10.3 Immature Gran % (Auto) 0.3 Neut % (Auto) 79.3 H Lymph % (Auto) 8.5 L [place] % (Auto) 11.4 H Eos % (Auto) 0.0 Baso % (Auto) 0.5 Lymph # (Auto) 0.5 L [place] # (Auto) 0.7 Eos # (Auto) 0.0 Baso # (Auto) 0.0 Abs Immat Gran (auto) 0.02 Absolute Neuts (auto) 5.0 Absolute Nucleated RBC 0.000 Nucleated RBC % (auto) 0.0 Sodium 133 L Potassium 4.7 D Chloride 95 L Carbon Dioxide 18 L Anion Gap 25 H BUN 21 H Creatinine 1.52 H Estim Creat Clear Calc 62.7 Estimated GFR 48 Random Glucose 225 H Estimat Average Glucose 108 Hemoglobin A1c % 5.4 Osmolality 291 Calcium 10.0 D Total Bilirubin 5.3 H Direct Bilirubin 1.6 H AST 44 H ALT 23 Alkaline Phosphatase 144 H Troponin I High Sens 43.3 H 43.0 H B-Natriuretic Peptide 3794 H Total Protein 7.3 Albumin 4.0 Ethyl Alcohol < 10 ECG Interpretation: EKG shows atrial fibrillation at a rate of 124/Min. PVC versus aberrant conduction. Nonspecific intraventricular conduction defect. Imaging Radiologist's impression: Impressions Chest X-Ray 08/30/23 05:11 IMPRESSION: Low lung volumes. Small right midlung field opacity improved compared to previous. No new consolidation seen. Assessment and Plan (1) Atrial fibrillation with rapid ventricular response: Status: Acute (2) Acute on chronic combined systolic and diastolic CHF (congestive heart failure): Status: Acute Plan Last echocardiogram November LVEF of 15-20%. Moderately decreased right ventricular systolic function. Moderate biatrial enlargement. Troponin levels with low-grade elevation 43 and 43. Cardiac BNP is 3794. Higher than before. Alcohol level less than 10. Overall, difficult to manage atrial fibrillation mainly due to history of alcohol abuse although he denies use the same in the last few days. Currently on a Cardizem drip which is not ideal either considering the severe LV dysfunction. Previously failed cardioversions as well as amiodarone use. We will again discuss with EP regarding AV node ablation/Bi V ICD placement. Procedures Date of Service Date of Service: 08/30/23
[2023-08-30 13:03] LABS: Appearance Urine Hazy; Color Urine Orange; Glucose Urine UA Negative (Negative); Leukocyte Esterase Urine Negative (Negative); PH 5.5 (5.0-9.0); Specific Gravity - Urine >= 1.030 (1.005-1.025); UMIC TRIGGER UACC YES; Urine Blood Negative (Negative); Urine Protein 300 (3+) mg/dL (Neg-Trace)
[2023-08-30 13:20] LABS: Bacteria Urine None Seen (None Seen); Hyaline Casts Urine >20 /LPF (0-2); RBC Urine 0-2 /HPF (0-2); Squamous Epithelial Cell Urine 0-2 /HPF (0-2); WBC Urine 0-5 /HPF (0-5)
--- NOTE | 2023-08-30 16:06 | PC.NURSE ---
Pts HR noted to be 80-100 afib, pt denies any pain or other complaints. Admitting provider contacted and orders to stop diltiazem drip at this time.
--- NOTE | 2023-08-30 16:45 | PM.DS ---
DS: Providers Provider Date of Service: 08/30/23 Date of admission: 08/30/23 10:12 Primary care physician: None Physician Consults: 08/30/23 07:54 Consult to Cardiology Routine Consulting Provider: [facility] Reason for consultation: atfib Has provider been notified: No DS: Diagnosis Discharge Diagnosis (1) Atrial fibrillation with rapid ventricular response: Status: Acute (2) Acute on chronic combined systolic and diastolic CHF (congestive heart failure): Status: Acute DS: Summary Hospital Course Hospital Course: Admission note HPI 57-year-old gentleman with past medical history of atrial fibrillation on Eliquis, CHF with reduced EF 10-20%, alcohol-related cardiomyopathy, history of alcohol use disorder, alcoholic hepatitis, hypertension presented to [facility] with symptoms of shortness of breath and palpitation that started 2 days ago patient start noticing shortness of breath associated with palpitations, denies chest pain was unable to lie flat ,and slept on a chair, the next morning continued to have persistent symptoms that were gradually getting worse, associated with lightheadedness, no dizziness, no fevers, no chills, no cough, no sick contacts as per patient he is compliant with home medication, he denies daily use of alcohol his last alcohol intake was 2 weeks ago as per patient drink 1-2 beer on some weekends, patient was recently evaluated at [facility] for ICD placement, patient has had multiple admissions in the past with similar symptoms last admission he left AMA, due to persistent shortness of breath patient called an ambulance, paramedics found him in atrial fibrillation with a rapid ventricular response of 170 patient was treated with 5 mg of IV metoprolol heart rate improved to 130 to 145 range his shortness of breath improved patient in the emergency room was noted to have persistent atrial fibrillation with RVR therefore treated with IV Cardizem 20 mg, followed by repeat bolus of IV Cardizem 10 mg, his lab work showed Low sodium and chloride 133 and 95. Low bicarb 18. Elevated BUN 21. BNP elevated 3794- has had similar elevations in the past. High sensitive troponin I was elevated at 43.3-, repeat unchanged, he has had similar elevations in the past, Total bilirubin is elevated 5.3, indirect bilirubin only 1.6 suggesting elevated bilirubin secondary to liver disease most likely from his alcohol use disorder. Patient will be admitted to medical floor for continued monitoring and treatment for atrial fibrillation with RVR, acute kidney injury and acute on chronic mild CHF due to reduced EF. Hospital course The patietn was started on IV cardizem drip that was later discontinued as the rate improved and he was evaluated by Loss Prevention Officer who recommended transfer to [facility] for EP evaluation and ablation. Will continue home medications of Digoxin and Toprol XL on discharge. Has a history of Alcohol abuse. denies daily use as he reports last intake was 2 weeks ago. on CIWA protocol. ROXANA likely a result of afib w rvr and decrease perfusion. hold nephrotoxin Time Attestation Discharge coordination time: Greater than 30 minutes Quality: Safe Use of Opioids Does Pt have an Active Cancer Diagnosis on the Problem List?: No Quality: Stroke Does the patient have a stroke diagnosis?: No Physical Exam Vital Signs: Vital Signs: Last Vital Signs Temp 98.7 F 08/30/23 06:21 Pulse 97 08/30/23 10:45 Resp 21 H 08/30/23 10:45 BP 122/82 08/30/23 10:45 Pulse Ox 93 08/30/23 10:45 O2 Del Method Room Air 08/30/23 10:45 BMI result Body Mass Index 34.1 Const: Other: Constitutional : Awake, interactive, not in distress Neck : Normal inspection, Supple Cardiovascular : irregular irregular, tachycardia , no JVP, +1 lower extremity edema Respiratory : fair bilateral air entry, no crackles, wheezes or rhonchi Gastrointestinal: soft, lax, Normal bowel sounds, Non tender Skin : Warm, Dry Neurological : Alert & oriented x3, No focal deficit DS: Data Data Completed and Pending Completed studies during hospitalization [Text1]: Procedures Assistance with Respiratory Ventilation, Less than 24 Consecutive Hours, Continuous Positive Airway Pressure (12/22/22) Detoxification Services for Substance Abuse Treatment (05/17/23) Insertion of Endotracheal Airway into Trachea, Via Natural or Artificial Opening (11/11/21) Respiratory Ventilation, 24-96 Consecutive Hours (11/11/21) [facility] of Cardiac Rhythm, Single (11/11/21) Labs on day of discharge: Laboratory Results - last 24 hr 08/30/23 08/30/23 08/30/23 05:15 08:23 11:06 WBC 6.3 RBC 3.82 L Hgb 13.1 L Hct 40.1 L MCV 105.0 H MCH 34.3 H MCHC 32.7 RDW 17.1 H Plt Count 120 L MPV 10.3 Immature Gran % (Auto) 0.3 Neut % (Auto) 79.3 H Lymph % (Auto) 8.5 L [place] % (Auto) 11.4 H Eos % (Auto) 0.0 Baso % (Auto) 0.5 Lymph # (Auto) 0.5 L [place] # (Auto) 0.7 Eos # (Auto) 0.0 Baso # (Auto) 0.0 Abs Immat Gran (auto) 0.02 Absolute Neuts (auto) 5.0 Absolute Nucleated RBC 0.000 Nucleated RBC % (auto) 0.0 Sodium 133 L Potassium 4.7 D Chloride 95 L Carbon Dioxide 18 L Anion Gap 25 H BUN 21 H Creatinine 1.52 H Estim Creat Clear Calc 62.7 Estimated GFR 48 Random Glucose 225 H Estimat Average Glucose 108 Hemoglobin A1c % 5.4 Osmolality 291 Calcium 10.0 D Total Bilirubin 5.3 H Direct Bilirubin 1.6 H AST 44 H ALT 23 Alkaline Phosphatase 144 H Troponin I High Sens 43.3 H 43.0 H B-Natriuretic Peptide 3794 H Total Protein 7.3 Albumin 4.0 Urine Color Urine Appearance Urine pH Ur Specific [place] Urine Protein Urine Glucose (UA) Urine Ketones Urine Blood Urine Nitrite Ur Leukocyte Esterase Urine RBC Urine WBC Ur Squamous Epith Cells Urine Bacteria Hyaline Casts Ethyl Alcohol < 10 08/30/23 12:56 WBC RBC Hgb Hct MCV MCH MCHC RDW Plt Count MPV Immature Gran % (Auto) Neut % (Auto) Lymph % (Auto) [place] % (Auto) Eos % (Auto) Baso % (Auto) Lymph # (Auto) [place] # (Auto) Eos # (Auto) Baso # (Auto) Abs Immat Gran (auto) Absolute Neuts (auto) Absolute Nucleated RBC Nucleated RBC % (auto) Sodium Potassium Chloride Carbon Dioxide Anion Gap BUN Creatinine Estim Creat Clear Calc Estimated GFR Random Glucose Estimat Average Glucose Hemoglobin A1c % Osmolality Calcium Total Bilirubin Direct Bilirubin AST ALT Alkaline Phosphatase Troponin I High Sens B-Natriuretic Peptide Total Protein Albumin Urine Color [place] Urine Appearance Hazy Urine pH 5.5 Ur Specific [place] >= 1.030 H Urine Protein 300 (3+) H Urine Glucose (UA) Negative Urine Ketones See Note Urine Blood Negative Urine Nitrite See Note Ur Leukocyte Esterase Negative Urine RBC 0-2 Urine WBC 0-5 Ur Squamous Epith Cells 0-2 Urine Bacteria None Seen Hyaline Casts >20 Ethyl Alcohol Imaging Chest x-ray: Radiologist's impression: ITS Impressions Chest X-Ray 08/30/23 05:11 IMPRESSION: Low lung volumes. Small right midlung field opacity improved compared to previous. No new consolidation seen. Discharge Plan Discharge Anticipated Discharge Date/Time: 08/30/23 16:43 Patient Disposition: Xfer Acute Care Hospital Discharge Diagnosis: AFib w rvr Referrals: Physician,None [Primary Care Provider] - 1 Week Discharge Medications: Continued Jardiance 10 mg tablet 10 mg PO DAILY Qty: 30 1RF folic acid 1 mg tablet 1 mg PO DAILY Qty: 90 1RF Rx Instructions: OVERDUE FOR APPT. PLEASE CALL [phone] TO SCHEDULE FOLLOW UP SO WE CAN CONTINUE REFILLING YOUR MEDICATIONS. metoprolol succinate 50 mg Tablet Extended Release 24 Hr 50 mg PO DAILY Qty: 90 0RF Protocol: Hold for SBP/HR < HOLD for SBP < : 90 HOLD for HR < : 60 Eliquis 5 mg Tablet 5 mg PO BID Qty: 120 2RF digoxin 125 mcg (0.125 mg) tablet 0.125 mg PO DAILY losartan 25 mg tablet 25 mg PO DAILY Rx Instructions: OVERDUE FOR APPT. PLEASE CALL [phone] TO SCHEDULE FOLLOW UP SO WE CAN CONTINUE REFILLING YOUR MEDICATIONS. furosemide 40 mg tablet 40 mg PO DAILY Discharge Orders: Discharge Order (Routine); Ordered 08/30/23 Ordered By: Titus Ordonez Diet: Advance to usual diet Activity on Discharge: As tolerated Stand Alone Forms: Patient Portal Discharge page Care Plan Goals: Read below Health Concerns: Read below Plan of Treatment: Read below Assessment: Transfer to [facility] Discharge Date/Time: 08/30/23 20:09
--- NOTE | 2023-08-30 18:58 | PC.NURSE ---
Report called to [facility] L[facility]HA Hoang at [facility]
[2023-08-30 19:02] VITALS: BP 121/67; PULSE 98; RESP 19
--- NOTE | 2023-08-30 19:37 | PC.NURSE ---
Addendum entered by Uzair Javier 08/30/23 20:04: Hr 96-125 on monitor, hospitalist notified, plan to hold cardizem unless rate consistently stays above 140, EMS at bedside for transport. Original Note: assumed care of pt at 1900, plan for transfer to [facility], RN-RN report called in by prior RN.
== END 2023-08-30 20:09 | disposition short-term general hospital (02) | DRG 201 ==
LOC: HO.ED 07:40 → HO.EDOVER 10:53
PROVIDERS: Admitting Provider Hospitalist; Emergency Provider Emergency Medicine Emergency Medical Services; Visit Provider Hospitalist
DX: I48.19 Other persistent atrial fibrillation (principal); I50.23 Acute on chronic systolic (congestive) heart failure; N17.9 Acute kidney failure, unspecified; E87.1 Hypo-osmolality and hyponatremia; I42.6 Alcoholic cardiomyopathy; D69.59 Other secondary thrombocytopenia; K70.9 Alcoholic liver disease, unspecified; F10.20 Alcohol dependence, uncomplicated; R73.9 Hyperglycemia, unspecified; E66.8 Other obesity; Z86.711 Personal history of pulmonary embolism; Z68.34 Body mass index [BMI] 34.0-34.9, adult; Z79.01 Long term (current) use of anticoagulants; Z79.899 Other long term (current) drug therapy
CPT/HCPCS: 36415; 71045; 80048; 80076; 80307; 81001; 81003; 83036; 83880; 83930; 84484; 85025; 93005; 99285; J1940; J2405

== ENCOUNTER → 2023-08-30 10:12 | Outpatient (BNV) | payer OTHER, SELFPAY | PROVIDERS: Admitting Provider Hospitalist; Emergency Provider Emergency Medicine Emergency Medical Services; Visit Provider Internal Medicine | DX: I48.91 Unspecified atrial fibrillation (principal); I50.43 Acute on chronic combined systolic (congestive) and diastolic (congestive) heart failure; R06.02 Shortness of breath; I49.3 Ventricular premature depolarization | CPT/HCPCS: 93010; 99223 ==

== ENCOUNTER → 2023-08-30 10:12 | Outpatient (BNV) | payer OTHER, SELFPAY | PROVIDERS: Admitting Provider Hospitalist; Emergency Provider Emergency Medicine Emergency Medical Services; Visit Provider Student in an Organized Health Care Education/Training Program | DX: I48.91 Unspecified atrial fibrillation (principal); I50.43 Acute on chronic combined systolic (congestive) and diastolic (congestive) heart failure | CPT/HCPCS: 99236; 99499 ==

== ENCOUNTER 2023-08-31 21:42 | Emergency (ER) | payer OTHER, SELFPAY ==
--- NOTE | ~2023-08-31 | CT_ITS ---
EXAMINATION: CT HEAD WITHOUT CONTRAST CT CERVICAL SPINE WITHOUT CONTRAST CLINICAL INFORMATION: Fall. Trauma. COMPARISON: CT head April 20, 2023 TECHNIQUE: Imaging was performed from the skull base to vertex without intravenous administration of contrast. In addition, helical noncontrast CT imaging was acquired through the cervical spine and source images were reviewed along with axial reconstructions and sagittal and coronal MPRs. [This CT examination was performed using dose optimization techniques as appropriate, variously including the following: *Automated exposure control *Adjustment of mA and/or kV according to patient size (this includes techniques or standardized protocols for targeted exams where dose is matched to indication/reason for exam; i.e. extremities or head) *Use of iterative reconstruction technique] DLP: 1399 mGy-cm FINDINGS: HEAD: No intracranial mass, hemorrhage, or midline shift is visualized. There is generalized global volume loss. There is moderate prominence of the ventricles and the sulci . There is mild hypodensity of the periventricular white matter due to chronic small vessel ischemic disease. There are vascular calcifications of the internal carotid arteries bilaterally. No extra-axial collections are identified. The paranasal sinuses and mastoid air cells are well aerated. CERVICAL SPINE: There is no evidence of acute cervical spine fracture. Vertebral bodies remain normal in height. Cervical vertebrae have normal alignment. 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 Mild disc height narrowing C5-C6 and C6-C7 disc levels. Mild facet joint arthrosis of the mid through upper cervical spine facet joints bilateral. No pre- or paravertebral soft tissue abnormality is identified. Limited assessment of the lung apices is unremarkable. CT/CT cervical spine wo IV con IMPRESSION: 1. No acute intracranial pathology. 2. No CT evidence of acute cervical spine fracture or traumatic subluxation.
[2023-08-31 21:52] VITALS: BP 160/80; BP 84/51; PULSE 107; PULSE 65; RESP 14; TEMP 37.1; O2SAT 96; BMI 32.2
--- NOTE | 2023-08-31 21:55 | PC.NURSE ---
ed providers made aware of pt +thinners and headstrike. ct scan ordered by Eduardo Danielle at bedside for eval pt.
--- NOTE | 2023-08-31 22:01 | ED_ITS ---
HPI - Fall General Chief Complaint: Fall Stated Complaint: FELL GETTING OUT OF CAR,SMALL LAC 2CM ON HEAD Time Seen by Provider: 08/31/23 22:01 Source: patient Mode of arrival: EMS Limitations: no limitations History of Present Illness HPI Narrative: Patient with history of atrial fibrillation on Eliquis with fair balance coming out of the car lost balance tried to grab bus stand pole but fell hitting his head to the ground came with laceration to the back of the head no loss of consciousness denies any palpitation after coming in the ER patient was feelings slight lightheaded noted to have blood pressure in 80s no vomiting no diarrhea patient has been eating normal patient had a bottle of Vodka earlier Related Data Home Medications Medication Instructions Recorded Confirmed digoxin 125 mcg (0.125 mg) tablet 0.125 mg PO DAILY 08/17/23 08/30/23 losartan 25 mg tablet 25 mg PO DAILY 08/17/23 08/30/23 furosemide 40 mg tablet 40 mg PO DAILY 08/30/23 08/30/23 Previous Rx's Medication Instructions Recorded empagliflozin 10 mg tablet 10 mg PO DAILY #30 tabs 11/18/22 (Jardiance) metoprolol succinate 50 mg 50 mg PO DAILY #90 tabs 03/13/23 tablet,extended release 24 hr folic acid 1 mg tablet 1 mg PO DAILY #90 tabs 04/14/23 apixaban 5 mg tablet (Eliquis) 5 mg PO BID #120 tabs 05/24/23 Allergies Allergy/AdvReac Type Severity Reaction Status Date / Time No Known Allergies Allergy Verified 08/17/23 14:55 [No Known Allergies*] Review of Systems 2 Review of Systems: Yes all other systems are reviewed and are negative FOR[facility]LY [facility] Past Medical History Medical History Chronic CHF Alcoholism CHF (congestive heart failure) Alcohol dependence with withdrawal Cardiomyopathy Chronic HFrEF (heart failure with reduced ejection fraction) Atrial fibrillation with rapid ventricular response Alcoholic hepatitis HTN (hypertension) Surgical History No pertinent past surgical history Family History Family History Father CAD (coronary artery disease) Mother Atrial fibrillation Social History Social History Household Members: None Housing: Apartment Do you presently have visiting nurse or other home services: No Unable to assess alcohol history related to: Unable to respond Alcohol intake: current Alcohol intake frequency: 3 or more drinks per day Alcohol type: hard liquor Comment: 1:1 sitter at bedside Patient Tobacco Use Status: Never used Tobacco Smoked in Last 30 Days: No Second Hand Smoke Exposure: No Use of substances other than those prescribed or required for medical reasons: No Advance Directives: Yes Advance Directives on File: Yes Advance Directives Date on File: 02/12/23 service: No Current occupational status: unemployed Physical Exam 2 Vital Signs: Vital Signs: Last Vital Signs Temp 97.9 F 09/01/23 04:00 Pulse 100 09/01/23 04:00 Resp 16 09/01/23 04:00 BP 94/58 L 09/01/23 04:00 Pulse Ox 98 09/01/23 04:00 O2 Del Method Room Air 09/01/23 04:00 BMI result Body Mass Index 32.2 Appearance: Alert. Oriented X3. No acute distress. Eyes: PERRLA, No Nystagmus HEENT: Pharynx normal. Oral Mucosa moist leg on the back of the head Neck: Normal inspection. Neck supple. CVS: Irregularly irregular heart rate tachycardia no murmurs/rubs Pulses normal. Respiratory: No respiratory distress. Equal air entry bilateral, no wheezing/rales/rhonchi Abdomen: Soft and nontender. Bowel sounds are present, no mass palpable, Skin: Skin warm and dry. Normal skin color. Normal skin turgor. Extremities: No lower extremity edema. No calf tenderness Neuro: Oriented X 3. No motor deficit. No sensory deficit.No cerebellar signs , cranial nerves II-XII intact Medications Administered Discontinued Medications Generic Name Dose Route Start Last Admin Trade Name Freq PRN Reason Stop Dose Admin Sodium Chloride 1,000 mls @ 999 mls/hr 08/31/23 22:10 09/01/23 01:55 Ns IV 08/31/23 23:10 Infused .Q1H1M ONE Infusion Medical Decision Making Medical Decision Making MDM Narrative: Patient with AFib with mechanical fall odor to a blood pressure on the lower side patient denies any dizziness at the time of fall no chest pain or palpitation. Patient's blood pressure improved after IV manual blood pressure was 106/58 patient is asymptomatic likely low blood pressure is from AFib with reading error by automatic machine Differential Diagnosis Differential Diagnoses: The differential diagnosis associated with the presentation includes Lab Data MDM Lab Attestation statement: I reviewed the patient's lab results. 08/31/23 22:33 08/31/23 22:33 Labs: Lab Results 08/31/23 Range/Units 22:33 WBC 7.2 (4.8-10.8) X10*3/uL RBC 3.22 L (4.60-5.80) X10*6/uL Hgb 11.0 L (14.0-18.0) g/dl Hct 33.2 L (42.0-52.0) % MCV 103.1 H (80.0-98.0) fL MCH 34.2 H (27.0-33.0) pg MCHC 33.1 (31.0-36.0) g/dl RDW 17.1 H (11.0-16.0) % Plt Count 122 L (160-400) X10*3/uL MPV 10.8 (9.4-12.4) fL Immature Gran % (Auto) 0.4 (0.0-0.4) % Neut % (Auto) 66.2 (45-73) % Lymph % (Auto) 20.1 (20-40) % [place] % (Auto) 12.2 H (2-11) % Eos % (Auto) 0.7 (0-4) % Baso % (Auto) 0.4 (0-2) % Lymph # (Auto) 1.5 (1.2-4.9) X10*3/uL [place] # (Auto) 0.9 (0.1-1.2) X10*3/uL Eos # (Auto) 0.1 (0.0-0.4) X10*3/uL Baso # (Auto) 0.0 (0.0-0.2) X10*3/uL Abs Immat Gran (auto) 0.03 (0.00-0.03) X10*3/uL Absolute Neuts (auto) 4.8 (2.0-8.3) x10*3/uL Absolute Nucleated RBC 0.000 (0.0-0.012) X10*3/uL Nucleated RBC % (auto) 0.0 (0.0-0.2) /100WBC Sodium 132 L (135-145) mmol/L Potassium 3.6 D (3.3-5.1) mmol/L Chloride 94 L (96-108) mmol/L Carbon Dioxide 24 (22-29) mmol/L Anion Gap 18 (12-20) BUN 31 H (9-16) mg/dL Creatinine 2.08 H (0.5-1.4) mg/dL Estim Creat Clear Calc 47.3 Estimated GFR 33 Random Glucose 80 (60-115) mg/dL Calcium 8.5 D (8.4-10.2) mg/dL Magnesium 1.9 (1.6-2.6) mg/dL Total Bilirubin 2.3 H (0.0-1.0) mg/dL AST 85 H (5-37) U/L ALT 42 H (0-40) U/L Alkaline Phosphatase 143 H (39-117) U/L Total Protein 6.2 L (6.5-8.0) g/dL Albumin 3.5 (3.5-5.0) g/dL Independent Interpretation I performed an independent interpretation of an: EKG and CT Scan Interpretation: Atrial fibrillation with ventricular rate of 94 beats per minute nonspecific STT wave changes no acute ischemia Discharge Plan Discharge Clinical Impression: Laceration of scalp, Fall, ROXANA (acute kidney injury) Patient Disposition: Home, Self-Care Instructions: Acute Kidney Injury (DC), Fall Prevention (ED), Head Laceration (ED) Additional Instructions: Hold furosemide for next 3 days and have your blood checked for kidney functions Drink plenty of fluids Staple removal in 7-10 days See your PCP/restorative rehab aide in 3 days Prescriptions: No Action Jardiance 10 mg tablet 10 mg PO DAILY Qty: 30 1RF folic acid 1 mg tablet 1 mg PO DAILY Qty: 90 1RF Rx Instructions: OVERDUE FOR APPT. PLEASE CALL [phone] TO SCHEDULE FOLLOW UP SO WE CAN CONTINUE REFILLING YOUR MEDICATIONS. metoprolol succinate 50 mg Tablet Extended Release 24 Hr 50 mg PO DAILY Qty: 90 0RF Protocol: Hold for SBP/HR < HOLD for SBP < : 90 HOLD for HR < : 60 Eliquis 5 mg Tablet 5 mg PO BID Qty: 120 2RF digoxin 125 mcg (0.125 mg) tablet 0.125 mg PO DAILY losartan 25 mg tablet 25 mg PO DAILY Rx Instructions: OVERDUE FOR APPT. PLEASE CALL [phone] TO SCHEDULE FOLLOW UP SO WE CAN CONTINUE REFILLING YOUR MEDICATIONS. furosemide 40 mg tablet 40 mg PO DAILY Interventions: ED Discharge Assessment Last Done: 09/01/23 06:12
--- NOTE | 2023-08-31 22:10 | ECG_ITS ---
Test Reason : FALL Blood Pressure : / mmHG Vent. Rate : 094 BPM Atrial Rate : 000 BPM P-R Int : 000 ms QRS Dur : 118 ms QT Int : 394 ms P-R-T Axes : 000 087 194 degrees QTc Int : 492 ms Atrial fibrillation Anterior infarct (cited on or before 05-JUN-2023) ST & T wave abnormality, consider inferolateral ischemia Abnormal ECG When compared with ECG of 30-AUG-2023 05:24, T wave inversion more evident in Lateral leads Referred By: Tom Danielle Electronically Signed By:ALYCIA MALIK
[2023-08-31 22:37] LABS: MANUAL DIFF FLAG NO
[2023-08-31 22:38] LABS: Basophils Percent Auto 0.4 % (0-2); Eosinophils Absolute Auto 0.1 X10*3/uL (0.0-0.4); Eosinophils Percent Auto 0.7 % (0-4); Hematocrit 33.2 % (42.0-52.0); Imm Gran Abs Auto 0.03 X10*3/uL (0.00-0.03); Imm Gran Pct Auto 0.4 % (0.0-0.4); Lymphocytes Absolute Auto 1.5 X10*3/uL (1.2-4.9); Lymphocytes Percent Auto 20.1 % (20-40); Mean Corpuscular HGB Conc 33.1 g/dl (31.0-36.0); Mean Corpuscular Hemoglobin 34.2 pg (27.0-33.0); Mean Corpuscular Volume 103.1 fL (80.0-98.0); Mean Platelet Volume 10.8 fL (9.4-12.4); Monocytes Absolute Auto 0.9 X10*3/uL (0.1-1.2); Monocytes Percent Auto 12.2 % (2-11); Neutrophils Absolute Auto 4.8 x10*3/uL (2.0-8.3); Neutrophils Percent Auto 66.2 % (45-73); Platelet Count 122 X10*3/uL (160-400); Red Blood Count 3.22 X10*6/uL (4.60-5.80); Red Cell Distribution Width 17.1 % (11.0-16.0); White Blood Count 7.2 X10*3/uL (4.8-10.8)
[2023-08-31] MEDS: 0.9 % Sodium Chloride 1,000 ML 999 ML IV (22:39)
--- NOTE | 2023-08-31 22:39 | PC.NURSE ---
Addendum entered by Kylie Godfrey 08/31/23 23:37: on arrival pt in afib rate 90-110 bpm. pt has hx of same. on eliquis. ekg obtained. Addendum entered by Kylie Godfrey 08/31/23 23:36: bp Original Note: Dr. Danielle aware of pt. pt placed in trendelenberg position. ivf infusing per mar. nad. call tillman within reach.
[2023-08-31 22:54] LABS: Alanine Aminotransferase 42 U/L (0-40); Albumin Level 3.5 g/dL (3.5-5.0); Alkaline Phosphatase 143 U/L (39-117); Anion Gap 18 (12-20); Aspartate Amino Transferase 85 U/L (5-37); Bilirubin Total 2.3 mg/dL (0.0-1.0); Blood Urea Nitrogen 31 mg/dL (9-16); Calcium 8.5 mg/dL (8.4-10.2); Carbon Dioxide 24 mmol/L (22-29); Chloride 94 mmol/L (96-108); Creatinine Clr Calc Pharmacy 47.3; Estimated Glomerular Filt Rate 33; Glucose Random 80 mg/dL (60-115); Magnesium 1.9 mg/dL (1.6-2.6); Potassium 3.6 mmol/L (3.3-5.1); Sodium 132 mmol/L (135-145); Total Protein 6.2 g/dL (6.5-8.0)
[2023-08-31 23:32] VITALS: BP 90/50; PULSE 109; RESP 16; O2SAT 98
[2023-09-01 00:04] VITALS: BP 106/58; PULSE 92; RESP 16; O2SAT 98
--- NOTE | 2023-09-01 00:05 | MHC.EDTECH ---
PT sitting in chain. Tech assisted with cleaning lac on PT head with peroxide and bandages. PT assisted provider with sandeep. Vitals taken at this time
--- NOTE | 2023-09-01 00:51 | PC.NURSE ---
pt axox4 ambulatory with steady gait. awaiting ivf infusion for discharge. vitals as documented. Dr. Danielle ok with BP as pt asymptomatic. pt denies cp/sob/n/v/d/dizziness.
--- NOTE | 2023-09-01 02:06 | PC.NURSE ---
upon discharge pt is ambulatory with steady gait. however this RN did not feel comfortable discharging pt at this time. pt resting comfortably in recliner with eyes closed resp even and unlabored. charge entry specialist made aware pt does not have a sober ride home states he can walk home or to get my car from [employer]. Dr. Danielle made aware. nad. call tillman within reach.
[2023-09-01 04:00] VITALS: BP 94/58; PULSE 100; RESP 16; TEMP 36.6; O2SAT 98
--- NOTE | 2023-09-01 04:50 | PC.NURSE ---
pt axox4 ambulatory with steady gait upon awaking. pt denies pain. resp even and unlabored. nad. resting comfortably in recliner at bedside. call tillman within reach.
== END 2023-09-01 06:24 | disposition home or self-care (01) ==
PROVIDERS: Emergency Provider Internal Medicine
DX: S01.01XA Laceration without foreign body of scalp, initial encounter (principal); R51.9 Headache, unspecified; M54.2 Cervicalgia; I48.91 Unspecified atrial fibrillation; R42 Dizziness and giddiness; W01.10XA Fall on same level from slipping, tripping and stumbling with subsequent striking against unspecified object, initial encounter; Y93.9 Activity, unspecified; Y92.9 Unspecified place or not applicable; Y99.8 Other external cause status; Z79.01 Long term (current) use of anticoagulants; Z79.899 Other long term (current) drug therapy
CPT/HCPCS: 36415; 70450; 72125; 80053; 83735; 85025; 93005; 96360; 96361; 99284; 99285

== ENCOUNTER → 2023-08-31 22:10 | Outpatient (BNV) | payer OTHER, SELFPAY | PROVIDERS: Emergency Provider Internal Medicine; Visit Provider Internal Medicine | DX: S01.01XA Laceration without foreign body of scalp, initial encounter (principal) | CPT/HCPCS: 93010 ==

== ENCOUNTER 2023-09-06 00:06 | Inpatient (IN) | payer OTHER, SELFPAY ==
[2023-09-06] VITALS (15 sets, daily range): BP systolic 101–144; BP diastolic 55–99; PULSE 71–149; RESP 16–28; TEMP 36.2–37.1; O2SAT 94–100; BMI 35.9; BMI 33.2
--- NOTE | 2023-09-06 | ECG_ITS ---
Test Reason : PALPITATIONS Blood Pressure : / mmHG Vent. Rate : 145 BPM Atrial Rate : 000 BPM P-R Int : 000 ms QRS Dur : 106 ms QT Int : 314 ms P-R-T Axes : 000 037 187 degrees QTc Int : 487 ms Atrial fibrillation with rapid ventricular response with premature ventricular or aberrantly conducted complexes Anterior infarct (cited on or before 05-JUN-2023) Abnormal ECG When compared with ECG of 31-AUG-2023 22:41, Vent. rate has increased BY 51 BPM Referred By: Generic ED Physician Electronically Signed By:Wally Arreola
--- NOTE | ~2023-09-06 | XR_ITS ---
EXAMINATION: XR CHEST CLINICAL INFORMATION: Pulmonary edema COMPARISON: 08/30/2023 TECHNIQUE: Frontal view of the chest was obtained. FINDINGS: Lung volumes are symmetric. Redemonstrated focal opacity in the lateral right midlung, without significant interval change. No new consolidation is seen bilaterally. No evidence of pneumothorax. Possible trace right pleural effusion. No overt pulmonary edema. Cardiac silhouette remains enlarged. No acute osseous findings are seen. XR/XR chest 1V IMPRESSION: No overt edema. Redemonstrated focal opacity in the lateral right midlung, without significant change from 08/30/2023; continued imaging follow-up is recommended to assess for resolution, as an underlying nodule cannot be excluded.
--- NOTE | 2023-09-06 01:00 | ED_ITS ---
HPI - SOB/Dyspnea General Chief Complaint: Dyspnea Stated Complaint: diff breathing Time Seen by Provider: 09/06/23 00:50 Source: patient and old records reviewed Mode of arrival: ambulatory Limitations: no limitations History of Present Illness HPI Narrative: 58-year-old male with past medical history of paroxysmal atrial fibrillation, HTN, CHF. Presented to the ED by EMS for increased shortness of breath with exertion over the past 2 days, paroxysmal nocturnal dyspnea, increased swelling to bilateral lower extremities. According to the old record patient had history of alcoholism and alcohol withdrawal required ICU admission in the past however patient confirmed that he only drinks twice a month and the lasted drink was 2 days ago. No chest pain, no abdominal pain, no weakness, no numbness. Related Data Home Medications Medication Instructions Recorded Confirmed digoxin 125 mcg (0.125 mg) tablet 0.125 mg PO DAILY 08/17/23 08/30/23 losartan 25 mg tablet 25 mg PO DAILY 08/17/23 08/30/23 furosemide 40 mg tablet 40 mg PO DAILY 08/30/23 08/30/23 Previous Rx's Medication Instructions Recorded empagliflozin 10 mg tablet 10 mg PO DAILY #30 tabs 11/18/22 (Jardiance) metoprolol succinate 50 mg 50 mg PO DAILY #90 tabs 03/13/23 tablet,extended release 24 hr folic acid 1 mg tablet 1 mg PO DAILY #90 tabs 04/14/23 apixaban 5 mg tablet (Eliquis) 5 mg PO BID #120 tabs 05/24/23 Allergies Allergy/AdvReac Type Severity Reaction Status Date / Time No Known Allergies Allergy Verified 08/17/23 14:55 [No Known Allergies*] Review of Systems 2 Review of Systems: All other systems are reviewed and are negative Constitutional: Reports as per HPI and Reports no additional constitutional complaints Eyes: Reports as per HPI and Reports no additional eye complaints Reports system reviewed and no additional complaints, except as documented Cardiovascular: Reports as per HPI and Reports no additional cardiovascular complaints Respiratory: Reports as per HPI and Reports no additional respiratory complaints Gastrointestinal: Reports as per HPI and Reports no additional gastrointestinal complaints Genitourinary: Reports no additional female genitourinary complaints Musculoskeletal: Reports no additional musculoskeletal complaints Skin/Breast: Reports system reviewed and no additional complaints, except as docu Psychiatric: Reports no additional psychiatric complaints Endocrine: Reports no additional endocrine complaints Hematologic/Lymphatic: Reports no additional hematologic/lymphatic complaints Allergic/Immunologic: Reports no additional allergic/immunologic complaints Reports system reviewed and no additional complaints, except as documented and Reports Abnormal speech present [facility] Past Medical History Medical History Chronic CHF Alcoholism CHF (congestive heart failure) Alcohol dependence with withdrawal Cardiomyopathy Chronic HFrEF (heart failure with reduced ejection fraction) Atrial fibrillation with rapid ventricular response Alcoholic hepatitis HTN (hypertension) Surgical History No pertinent past surgical history Family History Family History Father CAD (coronary artery disease) Mother Atrial fibrillation Social History Social History Household Members: None Housing: Apartment Do you presently have visiting nurse or other home services: No Unable to assess alcohol history related to: Unable to respond Alcohol intake: current Alcohol intake frequency: 3 or more drinks per day Alcohol type: hard liquor Comment: 1:1 sitter at bedside Patient Tobacco Use Status: Never used Tobacco Smoked in Last 30 Days: No Second Hand Smoke Exposure: No Use of substances other than those prescribed or required for medical reasons: No Advance Directives: Yes Advance Directives on File: Yes Advance Directives Date on File: 02/12/23 service: No Current occupational status: unemployed Physical Exam 2 Vital Signs: Vital Signs: Last Vital Signs Temp 98 F 09/06/23 02:03 Pulse 110 H 09/06/23 02:05 Resp 16 09/06/23 02:05 BP 128/78 09/06/23 02:05 Pulse Ox 100 09/06/23 02:05 O2 Del Method Nasal Cannula 09/06/23 02:05 O2 Flow Rate 2 09/06/23 02:05 BMI result Body Mass Index 35.9 Vital signs have been reviewed and appear to be correct. Blood pressure elevated. Heart rate elevated, Respiratory rate elevated, Temperature normal. Oxygen saturation normal. Appearance: Anxious, Alert. Oriented X3. No acute distress. Head: Normal external exam. Normocephalic. Atraumatic. No Herrera signs noted. No raccoon eyes noted Eyes: PERRLA. EOMI. Conjunctiva and sclera normal. Eyelids normal. ENT: TM's Normal. Pharynx normal. Uvula midline. Moist mucous membranes. No trismus noted. No drooling noted. No muffled voice noted. Neck: Normal inspection. Neck supple. FROM. No adenopathy. Thyroid Normal. No meningeal signs. No neck mass noted. CVS: Rapid regular heart rate and rhythm. Heart sound normal. No murmurs noted. Pulses normal throughout. Respiratory: No respiratory distress. Painless inspiration. Breath sounds normal. Bilateral lung rales up to 1/3 of bilateral lung lama. Chest nontender. No accessory muscle usage noted or decreased air movement noted. Abdomen: Soft and nontender. Bowel sounds normal in all 4 quadrants. No distention noted. No organomegaly noted. No visible injury noted. Back: No CVA tenderness. Full range of motion noted. Skin: Skin warm and dry. Normal skin color. Normal skin turgor. No rashes/lesions/lacerations noted. Extremities: +2 lower extremity edema bilaterally. Extremities exhibit normal range of motion. Extremities nontender. Neuro: Oriented X 3. Cranial nerve exam: II-XII are grossly intact No motor deficit. No sensory deficit. Reflexes normal. Course Reevaluation(s) Reevaluation #1: 58-year-old male presented with multiple complaints. 1. AFib with RVR patient received metoprolol IV and p.o. heart rate is down to 110 Bpm. 2. Acute exacerbation of congestive heart failure likely secondary to rapid AFib continue with Lasix diuresis and monitor blood pressure. 3. Patient reported last alcohol drink was 2 days ago not admitting to alcoholism however, his alcohol level today is high likely indicating he had a recent alcohol consumption and he is likely to withdraw while his hospitalization, start on phenobarb. Time: 02:38 Medications Administered Discontinued Medications Generic Name Dose Route Start Last Admin Trade Name Freq PRN Reason Stop Dose Admin Furosemide 40 mg 09/06/23 01:18 09/06/23 01:26 Furosemide 40 Mg/4 Ml Vial IVPUSH 09/06/23 01:19 40 mg ONCE ONE Administration Protocol Furosemide 20 mg 09/06/23 02:07 09/06/23 02:17 Furosemide 20 Mg/2 Ml Vial IVPUSH 09/06/23 02:08 20 mg ONCE ONE Administration Protocol Metoprolol Tartrate 5 mg 09/06/23 01:18 09/06/23 01:26 Metoprolol Tartrate 5 Mg/5 Ml Vial IVPUSH 09/06/23 01:19 5 mg ONCE ONE Administration Metoprolol Tartrate 25 mg 09/06/23 02:07 09/06/23 02:17 Metoprolol Tartrate 25 Mg Tablet PO 09/06/23 02:08 25 mg ONCE ONE Administration Protocol Phenobarbital Sodium 286 mg 09/06/23 01:30 09/06/23 01:53 Phenobarbital Sodium 130 Mg/Ml Im Once IM 09/06/23 01:31 286 mg ONCE ONE Administration Medical Decision Making Differential Diagnosis Differential Diagnoses: The differential diagnosis associated with the presentation includes (CHF, pneumonia, pneumothorax, pleural effusion, arrhythmia, AFib with RVR, electrolyte derangement, severe anemia, alcohol intoxication, alcohol withdrawal.) Admission/Observation Consideration of admission/observation: Escalation of care including admission/observation considered Consult Healthcare Provider Management of the patient was discussed with: Hospitalist (Dr. Bourgeois) Lab Data MDM Lab Attestation statement: I reviewed the patient's lab results. 09/06/23 01:25 09/06/23 01:25 Labs: Lab Results 09/06/23 Range/Units 01:25 WBC 4.8 (4.8-10.8) X10*3/uL RBC 3.53 L (4.60-5.80) X10*6/uL Hgb 12.0 L (14.0-18.0) g/dl Hct 36.7 L (42.0-52.0) % MCV 104.0 H (80.0-98.0) fL MCH 34.0 H (27.0-33.0) pg MCHC 32.7 (31.0-36.0) g/dl RDW 17.3 H (11.0-16.0) % Plt Count 140 L (160-400) X10*3/uL MPV 9.8 (9.4-12.4) fL Absolute Nucleated RBC 0.030 H (0.0-0.012) X10*3/uL Nucleated RBC % (auto) 0.6 H (0.0-0.2) /100WBC Sodium 136 (135-145) mmol/L Potassium 3.9 (3.3-5.1) mmol/L Chloride 99 (96-108) mmol/L Carbon Dioxide 25 (22-29) mmol/L Anion Gap 16 (12-20) BUN 20 H (9-16) mg/dL Creatinine 1.15 (0.5-1.4) mg/dL Estim Creat Clear Calc 90.4 Estimated GFR > 60 Random Glucose 232 H (60-115) mg/dL Calcium 8.3 L (8.4-10.2) mg/dL Troponin I High Sens 32.1 (<3.5-35.0) ng/L B-Natriuretic Peptide 1217 H (<100) pg/mL Ethyl Alcohol 232 mg/dL Independent Interpretation I performed an independent interpretation of an: EKG (AFib with RVR at 01:45, normal axis deviation.) Chronic Conditions Patient?s care impacted by: Other (Paroxysmal atrial fibrillation, chronic alcoholism, CHF.) Critical Care Time Critical Care Time Critical Care Time: Yes Total Critical Care Time: 60 Attestation: I spent 60 minutes providing critical care service to the patient, this including time spent at the bedside to evaluate the patient, reassess the patient, monitoring vital signs, review labs, and radiographic studies, counseling the patient/family, discussing the case with consultants, disposition the patient. Discharge Plan Discharge Clinical Impression: Congestive heart failure, Alcohol intoxication, Atrial fibrillation with RVR Patient Disposition: Admitted As Inpatient Prescriptions: No Action Jardiance 10 mg tablet 10 mg PO DAILY Qty: 30 1RF folic acid 1 mg tablet 1 mg PO DAILY Qty: 90 1RF Rx Instructions: OVERDUE FOR APPT. PLEASE CALL [phone] TO SCHEDULE FOLLOW UP SO WE CAN CONTINUE REFILLING YOUR MEDICATIONS. metoprolol succinate 50 mg Tablet Extended Release 24 Hr 50 mg PO DAILY Qty: 90 0RF Protocol: Hold for SBP/HR < HOLD for SBP < : 90 HOLD for HR < : 60 Eliquis 5 mg Tablet 5 mg PO BID Qty: 120 2RF digoxin 125 mcg (0.125 mg) tablet 0.125 mg PO DAILY losartan 25 mg tablet 25 mg PO DAILY Rx Instructions: OVERDUE FOR APPT. PLEASE CALL [phone] TO SCHEDULE FOLLOW UP SO WE CAN CONTINUE REFILLING YOUR MEDICATIONS. furosemide 40 mg tablet 40 mg PO DAILY
[2023-09-06] MEDS: Furosemide 40 MG/4 ML VIAL IVPUSH ×3 (01:26→18:10)
[2023-09-06] MEDS: Metoprolol Tartrate 5 MG/5 ML VIAL IVPUSH ×2 (01:26→22:11)
[2023-09-06 01:31] LABS: Hematocrit 36.7 % (42.0-52.0); Mean Corpuscular HGB Conc 32.7 g/dl (31.0-36.0); Mean Platelet Volume 9.8 fL (9.4-12.4); NRBC Pct Auto 0.6 /100WBC (0.0-0.2); Platelet Count 140 X10*3/uL (160-400); Red Blood Count 3.53 X10*6/uL (4.60-5.80); Red Cell Distribution Width 17.3 % (11.0-16.0); White Blood Count 4.8 X10*3/uL (4.8-10.8)
[2023-09-06 01:42] LABS: Anion Gap 16 (12-20); Blood Urea Nitrogen 20 mg/dL (9-16); Calcium 8.3 mg/dL (8.4-10.2); Carbon Dioxide 25 mmol/L (22-29); Chloride 99 mmol/L (96-108); Creatinine Clr Calc Pharmacy 90.4; Estimated Glomerular Filt Rate > 60; Ethanol 232 mg/dL; Glucose Random 232 mg/dL (60-115); Potassium 3.9 mmol/L (3.3-5.1); Sodium 136 mmol/L (135-145)
[2023-09-06 01:49] LABS: B Type Natriuretic Peptide 1217 pg/mL (<100)
[2023-09-06 01:50] LABS: Troponin-I High Sensitivity 32.1 ng/L (<3.5-35.0)
[2023-09-06] MEDS: PHENobarbitaL sodium 130 MG/ML IM ONCE 286 MG IM (01:53)
[2023-09-06] MEDS: Furosemide 20 MG/2 ML VIAL IVPUSH (02:17)
[2023-09-06] MEDS: Metoprolol Tartrate 25 MG TABLET PO (02:17)
--- NOTE | 2023-09-06 02:53 | PC.NURSE ---
Late entry; approx 1:20 pt reported increased SOB. MD made aware and additional 20mg of Lasix IV ordered and given as well as Metoprolol 25mg PO. PT now resting with eyes closed, resp even and unlabored. HR 120 on monitor in afib. MD aware.
--- NOTE | 2023-09-06 03:28 | P.HPHOSP_ITS ---
History of Present Illness Date of Service: 09/06/23 Chief Complaint: Palpitations This is a 58-year-old male with pertinent history of atrial fibrillation on Eliquis, congestive heart failure with, 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 Patient states the palpitations started on the day of presentation. He denies any dyspnea. Denies orthopnea or paroxysmal nocturnal dyspnea. Patient gets irritated when asked about alcohol use. States he never has had alcohol withdrawal before or alcohol seizures. Of note, patient was recently admitted on 08/30 with AFib with RVR and was recommended to be transferred to [facility] for possible admission. He does have a history of similar admissions in the past and history of leaving against medical advice. No fever, chills, chest discomfort, abdominal pain, changes in urinary or bowel habits. In the emergency department, BNP found to be elevated but imaging without overt pulmonary edema. He was initiated on phenobarb protocol in the ER Review of Systems 2 Constitutional: Constitutional: Reports no additional constitutional complaints Cardiovascular: Cardiovascular: Reports rapid heart rate Respiratory: Respiratory: Reports no additional respiratory complaints Gastrointestinal: Gastrointestinal: Reports no additional gastrointestinal complaints Genitourinary: Genitourinary: Reports no additional male genitourinary complaints [facility] Medical History Chronic CHF Alcoholism CHF (congestive heart failure) Alcohol dependence with withdrawal Cardiomyopathy Chronic HFrEF (heart failure with reduced ejection fraction) Atrial fibrillation with rapid ventricular response Alcoholic hepatitis HTN (hypertension) Family History Father CAD (coronary artery disease) Mother Atrial fibrillation Surgical History No pertinent past surgical history Social History Household Members: None Housing: Apartment Do you presently have visiting nurse or other home services: No Unable to assess alcohol history related to: Unable to respond Alcohol intake: current Alcohol intake frequency: 3 or more drinks per day Alcohol type: hard liquor Comment: 1:1 sitter at bedside Patient Tobacco Use Status: Never used Tobacco Smoked in Last 30 Days: No Second Hand Smoke Exposure: No Use of substances other than those prescribed or required for medical reasons: No Advance Directives: Yes Advance Directives on File: Yes Advance Directives Date on File: 02/12/23 service: No Current occupational status: unemployed Meds Allergies Allergy/AdvReac Type Severity Reaction Status Date / Time No Known Allergies Allergy Verified 08/17/23 14:55 [No Known Allergies*] Active Medications: Current Medications Thiamine HCl 100 mg/ Sodium (Chloride) 101 mls @ 202 mls/hr IV ONCE ONE Stop: 09/06/23 03:52 Pharmacy Consult (Consult Rx Etoh Phenob Im/Po) 1 each MISCELLANE ONCE PRN; Protocol PRN Reason: Consult order Phenobarbital (Phenobarbital 15 Mg Tablet) 75 mg PO BID [facility]; Protocol Stop: 09/08/23 09:01 Phenobarbital (Phenobarbital 30 Mg Tablet) 30 mg PO BID [facility]; Protocol Stop: 09/10/23 09:01 Phenobarbital (Phenobarbital 30 Mg Tablet) 30 mg PO DAILY [facility]; Protocol Stop: 09/12/23 09:01 Phenobarbital Sodium (Phenobarbital Sodium 130 Mg/Ml Vial Im Q3hx2) 221 mg IM Q3H EDWIN Stop: 09/06/23 07:31 Home Medications Medication Instructions Recorded Confirmed Last Taken Type digoxin 125 mcg (0.125 mg) tablet 0.125 mg PO DAILY 08/17/23 08/30/23 08/16/23 History losartan 25 mg tablet 25 mg PO DAILY 08/17/23 08/30/23 08/16/23 History furosemide 40 mg tablet 40 mg PO DAILY 08/30/23 08/30/23 Unknown History Physical Exam 2 Vital Signs and Narrative: Vital Signs: Last Vital Signs Temp 98 F 09/06/23 02:03 Pulse 110 H 09/06/23 02:05 Resp 16 09/06/23 02:05 BP 128/78 09/06/23 02:05 Pulse Ox 100 09/06/23 02:05 O2 Del Method Nasal Cannula 09/06/23 02:05 O2 Flow Rate 2 09/06/23 02:05 BMI result Body Mass Index 35.9 Middle-aged male lying in bed in no distress Neck supple, no JVD Irregularly irregular, S1-S2 heard Regular breath sounds bilaterally, no wheezing or crackles appreciated Abdomen soft nontender, no guarding, no rigidity Patient is awake, alert and oriented to self, place, time and person ; no focal motor deficit Psych: Normal mood No pedal edema Results Labs 09/06/23 01:25 09/06/23 01:25 Labs: Laboratory Results - last 24 hr 09/06/23 01:25 MCV 104.0 H MCH 34.0 H MCHC 32.7 RDW 17.3 H Plt Count 140 L MPV 9.8 Absolute Nucleated RBC 0.030 H Nucleated RBC % (auto) 0.6 H Anion Gap 16 Estim Creat Clear Calc 90.4 Estimated GFR > 60 Random Glucose 232 H Calcium 8.3 L Troponin I High Sens 32.1 B-Natriuretic Peptide 1217 H Ethyl Alcohol 232 Imaging Radiologist's Impressions: Impressions Chest X-Ray 09/06/23 02:15 IMPRESSION: No overt edema. Redemonstrated focal opacity in the lateral right midlung, without significant change from 08/30/2023; continued imaging follow-up is recommended to assess for resolution, as an underlying nodule cannot be excluded. Assessment and Plan (1) Atrial fibrillation with RVR: Status: Acute (2) Alcohol intoxication: Status: Acute Plan This is a 58-year-old male with pertinent history of atrial fibrillation on Eliquis, congestive heart failure with, 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 #. AFib with RVR: Will admit patient with cardiac monitoring. Initiating Cardizem drip. On digoxin and p.o. metoprolol. Consulting Cardiology. Patient is on Eliquis. Obtaining TSH #. Alcohol use disorder: Monitor on CIWA. Phenobarb protocol initiated in the ER. Initiating thiamine. Patient on folic acid consulting Addiction Team #. Congestive heart failure with reduced ejection fraction: Patient given IV diuresis in the ER. No overt decompensation. Continue home p.o. diuresis #. Hyperglycemia: Initiating Accu-Cheks with sliding scale insulin. Obtaining A1c Med rec pending DVT prophylaxis: Eliquis Full code Admit as inpatient and will require two night minimum hospital stay for IV Cardizem GGT (as above), which is not possible in a lesser acute setting. Specialist consult pending Quality Stroke Does the patient have a stroke diagnosis?: No VTE Prior VTE?: No VTE Risk Level:: Medical - moderate - high VTE Device Contraindication: Treatment Not Indicated VTE Drug Contraindication: N/A - Med Ordered
[2023-09-06] MEDS: Thiamine HCL 100 MG in 0.9 % Sodium Chloride 100 ML 202 MG IV (03:42)
[2023-09-06] MEDS: dilTIAZem HCL 125 MG in 0.9 % Sodium Chloride 100 ML 10 MG IVCONT (04:21)
--- NOTE | 2023-09-06 04:23 | PC.NURSE ---
Diltiazem drip started @ 10mls/hr per protocol, HR 140 @ the start of drip.
[2023-09-06] MEDS: PHENobarbitaL sodium 130 MG/ML VIAL IM Q3Hx2 221 MG IM ×2 (04:48→08:04)
--- NOTE | 2023-09-06 04:57 | PC.NURSE ---
PTS HR 138-142 on monitor, Titrated Diltiazem to 15mls/hr. Plan of care on going.
--- NOTE | 2023-09-06 05:33 | PC.NURSE ---
PT's HR currently 121 on tele monitor. Diltiazem drip continues to run @ 15mls/hr (see MAR). PT is resting currently, offers no complaints @ this time. Plan of care onging. Awaiting bed assignment.
[2023-09-06 06:24] LABS: MANUAL DIFF FLAG NO
[2023-09-06 06:28] LABS: Basophils Absolute Auto 0.1 X10*3/uL (0.0-0.2); Eosinophils Percent Auto 0.2 % (0-4); Hematocrit 35.8 % (42.0-52.0); Hemoglobin 11.7 g/dl (14.0-18.0); Imm Gran Abs Auto 0.03 X10*3/uL (0.00-0.03); Imm Gran Pct Auto 0.6 % (0.0-0.4); Lymphocytes Absolute Auto 0.7 X10*3/uL (1.2-4.9); Mean Corpuscular HGB Conc 32.7 g/dl (31.0-36.0); Mean Corpuscular Volume 104.1 fL (80.0-98.0); Mean Platelet Volume 10.2 fL (9.4-12.4); Monocytes Absolute Auto 0.9 X10*3/uL (0.1-1.2); Monocytes Percent Auto 17.7 % (2-11); NRBC Pct Auto 0.4 /100WBC (0.0-0.2); Neutrophils Absolute Auto 3.4 x10*3/uL (2.0-8.3); Neutrophils Percent Auto 66.5 % (45-73); Platelet Count 138 X10*3/uL (160-400); Red Blood Count 3.44 X10*6/uL (4.60-5.80); Red Cell Distribution Width 17.4 % (11.0-16.0); White Blood Count 5.2 X10*3/uL (4.8-10.8)
[2023-09-06 07:12] LABS: Anion Gap 16 (12-20); Blood Urea Nitrogen 19 mg/dL (9-16); Calcium 8.4 mg/dL (8.4-10.2); Carbon Dioxide 26 mmol/L (22-29); Chloride 98 mmol/L (96-108); Creatinine Clr Calc Pharmacy 96.3; Estimated Glomerular Filt Rate > 60; Glucose Random 158 mg/dL (60-115); Potassium 3.1 mmol/L (3.3-5.1); Sodium 137 mmol/L (135-145)
[2023-09-06 07:23] LABS: Thyroid Stimulating Hormone 3.22 uIU/mL (0.32-4.0)
[2023-09-06 07:36] LABS: Estimated Average Glucose 120 mg/dL; Hemoglobin A1c % 5.8 % (<6.0)
[2023-09-06 07:49] LABS: Glucose, Whole Blood 220 mg/dL (60-115)
[2023-09-06] MEDS: Thiamine HCL 100 MG TABLET PO (08:04)
--- NOTE | 2023-09-06 08:50 | PHA.MEDREC ---
Pharmacy Consult ? Medication Reconciliation Pharmacy has completed the medication reconciliation. Spoke to patient and confirmed medication list.
[2023-09-06] MEDS: Magnesium Sulfate/H2O 2 GM/50 ML PIGGYBACK IV ×2 (12:26→23:06)
[2023-09-06] MEDS: Potassium Chloride ER 20 MEQ TAB.ER.PRT 40 MEQ PO (12:27)
--- NOTE | 2023-09-06 12:33 | MHC.CM.PN ---
Attempted to meet with patient in regards to discharge planning. Patient not in room. No family present. Will attempt to meet again. Continue to monitor for d/c needs.
--- NOTE | 2023-09-06 12:43 | P.CONCA_ITS ---
History of Present Illness History of Present Illness Date of Service: 09/06/23 Chief complaint: Palpitations Narrative: [age] year gentleman with known cardiomyopathy, atrial fibrillation which is difficult to control due to alcoholism and alcohol withdrawal episodes when he comes to the hospital and previous episodes of congestive heart failure presenting for palpitations and shortness of breath. Clinically was noticed to be in congestive heart failure. It appears that he was started on diltiazem drip in the emergency department for rate control. He is saying that he has not feeling well. He said he has been sleeping in his house in a recliner but yesterday while sitting he had significant shortness of breath. He said walking around he has noticed some shortness of breath off and on over the last few days. He appears to be significantly volume overloaded. He is saying that he has been taking medications but misses them maybe 1 time a week. He was referred to EP for AV christy ablation and Bi V AICD placement and is due to get that done on . [facility] Past Medical History Medical History Chronic CHF Alcoholism CHF (congestive heart failure) Alcohol dependence with withdrawal Cardiomyopathy Chronic HFrEF (heart failure with reduced ejection fraction) Atrial fibrillation with rapid ventricular response Alcoholic hepatitis HTN (hypertension) Family History Family History Father CAD (coronary artery disease) Mother Atrial fibrillation Surgical History Surgical History No pertinent past surgical history Social History Social History Household Members: None Housing: Apartment Do you presently have visiting nurse or other home services: No Unable to assess alcohol history related to: Unable to respond Alcohol intake: current Alcohol intake frequency: 3 or more drinks per day Alcohol type: hard liquor Comment: 1:1 sitter at bedside Patient Tobacco Use Status: Never used Tobacco Smoked in Last 30 Days: No Second Hand Smoke Exposure: No Use of substances other than those prescribed or required for medical reasons: No Advance Directives: Yes Advance Directives on File: Yes Advance Directives Date on File: 02/12/23 service: No Current occupational status: unemployed Meds Allergies Allergy/AdvReac Type Severity Reaction Status Date / Time No Known Allergies Allergy Verified 08/17/23 14:55 [No Known Allergies*] Active Medications: Current Medications Acetaminophen (Acetaminophen 325 Mg Tablet) 650 mg PO Q6H PRN PRN Reason: Pain, Mild (Pain Scale 1-3) Dextrose (Dextrose 50 % 25 Gm/50 Ml Syringe) 25 gm IVPUSH Q15M PRN; Protocol PRN Reason: per Hypoglycemia Standing Ord. Furosemide (Furosemide 40 Mg/4 Ml Vial) 40 mg IVPUSH BID@0900,1800 [facility]; Protocol Last Admin: 09/06/23 12:27 Dose: 40 mg Glucose (Glucose Gel 15 Gm Gel..Gram.) 15 gm PO Q15M PRN; Protocol PRN Reason: per Hypoglycemia Standing Ord. Magnesium Sulfate (Magnesium Sulfate/H2o) 2 gm in 50 mls @ 25 mls/hr IV ONCE ONE Stop: 09/06/23 12:51 Last Admin: 09/06/23 12:26 Dose: 25 mls/hr Insulin Human Lispro (Insulin Lispro 100 Unit/Ml 3 Ml Vial) 0 unit SUBCUT QIDACHS [facility]; Protocol Last Admin: 09/06/23 09:17 Dose: Not Given Melatonin (Melatonin 3 Mg Tablet) 6 mg PO BEDTIME PRN PRN Reason: Insomnia Ondansetron HCl (Ondansetron Hcl 4 Mg/2 Ml Vial) 4 mg IVPUSH Q8H PRN PRN Reason: Nausea and Vomiting Pharmacy Consult (Consult Rx Etoh Phenob Im/Po) 1 each MISCELLANE ONCE PRN; Protocol PRN Reason: Consult order Phenobarbital (Phenobarbital 15 Mg Tablet) 75 mg PO BID [facility]; Protocol Stop: 09/08/23 09:01 Phenobarbital (Phenobarbital 30 Mg Tablet) 30 mg PO BID [facility]; Protocol Stop: 09/10/23 09:01 Phenobarbital (Phenobarbital 30 Mg Tablet) 30 mg PO DAILY [facility]; Protocol Stop: 09/12/23 09:01 Sodium Chloride (0.9 % Sodium Chloride Flush 3 Ml Syringe) [facility] Last Admin: 09/06/23 08:04 Dose: Not Given Thiamine HCl (Thiamine Hcl 100 Mg Tablet) 100 mg PO DAILY [facility] Last Admin: 09/06/23 08:04 Dose: 100 mg Home Medications Medication Instructions Recorded Confirmed Last Taken Type digoxin 125 mcg (0.125 mg) tablet 0.125 mg PO DAILY 08/17/23 09/06/23 09/03/23 History losartan 25 mg tablet 25 mg PO DAILY 08/17/23 09/06/23 09/03/23 History furosemide 40 mg tablet 40 mg PO DAILY 08/30/23 09/06/23 09/03/23 History metoprolol succinate 50 mg 150 mg PO DAILY 09/06/23 09/06/23 09/03/23 History tablet,extended release 24 hr Physical Exam 2 Vital Signs: Vital Signs: Last Vital Signs Temp 97.9 F 09/06/23 11:00 Pulse 101 H 09/06/23 11:00 Resp 18 09/06/23 11:00 BP 101/66 09/06/23 11:00 Pulse Ox 98 09/06/23 11:00 O2 Del Method Room Air 09/06/23 08:10 O2 Flow Rate 2 09/06/23 05:32 BMI result Body Mass Index 35.9 GENERAL APPEARANCE: in no acute distress, pleasant. NECK: no carotid bruit, ++ jugular venous distention. SKIN: no suspicious lesions, warm and dry. HEART: no murmurs, irregular rate and rhythm. LUNGS: clear to auscultation bilaterally. ABDOMEN: Distended. Nontender. EXTREMITIES: ++ edema. PERIPHERAL PULSES: equal. NEUROLOGIC: No gross deficits, AAO X 3 Objective Labs and Meds 09/06/23 04:59 09/06/23 04:59 Lab results: Laboratory Results - last 24 hr 09/06/23 09/06/23 09/06/23 01:25 04:59 07:40 WBC 4.8 5.2 RBC 3.53 L 3.44 L Hgb 12.0 L 11.7 L Hct 36.7 L 35.8 L MCV 104.0 H 104.1 H MCH 34.0 H 34.0 H MCHC 32.7 32.7 RDW 17.3 H 17.4 H Plt Count 140 L 138 L MPV 9.8 10.2 Immature Gran % (Auto) 0.6 H Neut % (Auto) 66.5 Lymph % (Auto) 14.0 L Sharp % (Auto) 17.7 H Eos % (Auto) 0.2 Baso % (Auto) 1.0 Lymph # (Auto) 0.7 L Sharp # (Auto) 0.9 Eos # (Auto) 0.0 Baso # (Auto) 0.1 Abs Immat Gran (auto) 0.03 Absolute Neuts (auto) 3.4 Absolute Nucleated RBC 0.030 H 0.020 H Nucleated RBC % (auto) 0.6 H 0.4 H Sodium 136 137 Potassium 3.9 3.1 L D Chloride 99 98 Carbon Dioxide 25 26 Anion Gap 16 16 BUN 20 H 19 H Creatinine 1.15 1.08 Estim Creat Clear Calc 90.4 96.3 Estimated GFR > 60 > 60 POC Glucose 220 H Random Glucose 232 H 158 H Estimat Average Glucose 120 Hemoglobin A1c % 5.8 Calcium 8.3 L 8.4 Troponin I High Sens 32.1 B-Natriuretic Peptide 1217 H TSH 3.22 Ethyl Alcohol 232 Imaging Radiologist's impression: Impressions Chest X-Ray 09/06/23 02:15 IMPRESSION: No overt edema. Redemonstrated focal opacity in the lateral right midlung, without significant change from 08/30/2023; continued imaging follow-up is recommended to assess for resolution, as an underlying nodule cannot be excluded. Assessment and Plan (1) Atrial fibrillation with RVR: Status: Acute (2) Congestive heart failure: Status: Acute Plan [age] year gentleman with alcoholism and chronic systolic heart failure and difficult to control atrial fibrillation due to alcohol use. He is presenting again with congestive heart failure. Clinically he is quite volume overloaded at this point. Start 40 mg IV b.i.d. Lasix. Add spironolactone 25 mg twice a day. Give 40 of potassium and monitor potassium closely as he is hypokalemic. Hold the digoxin while potassium improves. His empagliflozin should be continued as before. Would hold the metoprolol and losartan for now. As blood pressure improves losartan can be started followed by metoprolol succinate. Would decrease the dose of metoprolol succinate to 100 mg daily for now. Avoid diltiazem. Plan will be to stabilize him and tentatively transferred to [facility] for potential inpatient AV christy ablation and Bi V AICD placement. I have explained to the patient that this will fix his atrial fibrillation issue but if he continues to drink we may not see any recovery in his heart function and he may have future heart failure admissions as before. Thank you for allowing me to participate in the care of your patient. Please feel free to contact me if you have any questions. Procedures Date of Service Date of Service: 09/06/23
[2023-09-06 13:20] LABS: Glucose, Whole Blood 138 mg/dL (60-115)
--- NOTE | 2023-09-06 14:55 | PM.EVENT ---
Event Note Date of Service: 09/06/23 Event Note: Complaining of nausea and not feeling well. Denies chest pain, no palpitations, no lightheadedness, no dizziness. On examination Appears uncomfortable Neck positive JVD Lungs clear to auscultation Heart irregular rate Abdomen nontender bowel sounds audible Extremities bilateral pitting edema Neuro nonfocal Atrial fibrillation with RVR Recurrent episodes related to alcohol use /withdrawal Stable ventricular rate DC IV Cardizem drip, will resume metoprolol succinate 100mg daily once BP allows, continue Eliquis for AC Acute on chronic congestive heart failure with reduced EF Seen by cardiology will continue IV Lasix 40 mg b.i.d., and spironolactone 25 mg b.i.d. Continue Jardiance Will resume losartan and metoprolol as blood pressure allows Will hold digoxin Patient is scheduled for AV christy ablation and biventricular AICD placement at [facility] this plan is to stabilize him and transfer him to [facility] Acute hypokalemia likely due to diuretics will replace and follow BMP Alcohol use disorder with high risk for withdrawal continue phenobarb protocol, thiamine and folic acid Hyperglycemia, hemoglobin A1c through 5.8, Continue insulin sliding scale Class 2 obesity recommend low-calorie diet and weight reduction. Chronic thrombocytopenia likely due to alcohol is stable DVT prophylaxis with Eliquis Full code In my clinical judgment patient will require continued inpatient hospitalization for management of AFib with RVR and acute on chronic congestive heart failure requiring IV Lasix treatment can not be provided in less acute setting. Time Spent With Patient Time: Total time managing care of this patient today ____ minutes.
[2023-09-06] MEDS: Potassium Chloride ER 20 MEQ TAB.ER.PRT PO (18:10)
[2023-09-06] MEDS: Spironolactone 25 MG TABLET PO (18:11)
[2023-09-06] MEDS: PHENobarbitaL 15 MG TABLET 75 MG PO (18:11)
[2023-09-06] MEDS: Empagliflozin 10 MG TABLET PO (18:11)
[2023-09-06 19:08] LABS: Glucose, Whole Blood 160 mg/dL (60-115)
[2023-09-06 21:43] LABS: Glucose, Whole Blood 157 mg/dL (60-115)
[2023-09-06] MEDS: Apixaban 5 MG TABLET PO (21:48)
[2023-09-06] MEDS: Insulin Lispro 100 UNIT/ML 3 ML VIAL SUBCUT (21:48)
[2023-09-06] MEDS: 0.9 % Sodium Chloride Flush 3 ML SYRINGE IVFLUSH ×2 (21:50→23:06)
--- NOTE | 2023-09-06 22:00 | ECG_ITS ---
Test Reason : tachycardia Blood Pressure : / mmHG Vent. Rate : 128 BPM Atrial Rate : 000 BPM P-R Int : 000 ms QRS Dur : 106 ms QT Int : 346 ms P-R-T Axes : 000 074 228 degrees QTc Int : 505 ms Atrial fibrillation with rapid ventricular response with premature ventricular or aberrantly conducted complexes Incomplete left bundle branch block ST & T wave abnormality, consider lateral ischemia Abnormal ECG When compared with ECG of 06-SEP-2023 01:11, No significant change was found Referred By: Miranda Beauchamp Electronically Signed By:Wally Arreola
--- NOTE | 2023-09-06 22:11 | PM.EVENT ---
Event Note Date of Service: 09/06/23 Event Note: Pt noted to be in atrial fibrillation rvr on tele monitor, rates 120-140s. Pt denies palpitations, sob, lightheadedness, chest pain. He is resting comfortably in bed. CIWA 0, denies w/d symptoms, on phenobarbital per protocol. Seen by cardiology today with plan to stabilize and transfer to [facility] for potential AV christy ablation and bi v aicd placement. 5mg IV lopressor ordered. EKG ordered. BMP and mag ordered for further evaluation. Pt to be transferred to [facility]/tele for further management. Time Spent With Patient Time: Total time managing care of this patient today ____ minutes.
[2023-09-06 22:36] LABS: Anion Gap 15 (12-20); Blood Urea Nitrogen 18 mg/dL (9-16); Calcium 8.6 mg/dL (8.4-10.2); Carbon Dioxide 26 mmol/L (22-29); Chloride 95 mmol/L (96-108); Estimated Glomerular Filt Rate > 60; Glucose Random 134 mg/dL (60-115); Magnesium 1.5 mg/dL (1.6-2.6); Potassium 3.8 mmol/L (3.3-5.1); Sodium 132 mmol/L (135-145)
--- NOTE | 2023-09-06 22:59 | PC.NURSE ---
Pt arrived to room 350 at 2056 per stretcher , alert and oriented, denies any pain, admission care done, pt denies any SOB but noted to be SOB after walking around the beside, denies any palpitation, CIWA=0, Tele showed RVR at 120s-130s, sustaining, rest of vitals WNL, Dr. Gamino was updated at 2157, EKG done and tracing sent to Dr. Gamino, Metoprolol 5 mg IV given, HR went to 117 after, report given to LAKESHA Narayanan, transported to [facility] at 2230.
[2023-09-06] MEDS: Digoxin 0.5 MG/2 ML AMPUL 0.25 MG IVPUSH (23:06)
[2023-09-06] MEDS: ondansetron HCL 4 MG/2 ML VIAL IVPUSH (23:16)
[2023-09-07] VITALS: BP 152/74; PULSE 66; RESP 20; TEMP 37; O2SAT 95
[2023-09-07 00:15] VITALS: BP 144/89; PULSE 107
[2023-09-07] MEDS: Acetaminophen 325 MG TABLET 650 MG PO (00:28)
[2023-09-07] MEDS: Melatonin 3 MG TABLET 6 MG PO (00:28)
[2023-09-07 04:00] VITALS: BP 129/82; PULSE 110; RESP 18; TEMP 36.2; O2SAT 93
[2023-09-07] MEDS: Metoprolol Tartrate 5 MG/5 ML VIAL IVPUSH (05:40)
[2023-09-07 06:38] LABS: Anion Gap 13 (12-20); Blood Urea Nitrogen 18 mg/dL (9-16); Calcium 8.4 mg/dL (8.4-10.2); Carbon Dioxide 26 mmol/L (22-29); Chloride 96 mmol/L (96-108); Creatinine Clr Calc Pharmacy 90.1; Estimated Glomerular Filt Rate > 60; Glucose Random 104 mg/dL (60-115); Potassium 3.8 mmol/L (3.3-5.1); Sodium 131 mmol/L (135-145)
[2023-09-07 06:40] LABS: Digoxin 0.6 ng/mL (0.8-2.0)
[2023-09-07 07:16] VITALS: BP 98/78; PULSE 75; RESP 16; TEMP 36.2; O2SAT 95
[2023-09-07 07:57] LABS: Glucose, Whole Blood 127 mg/dL (60-115)
[2023-09-07] MEDS: Spironolactone 25 MG TABLET PO (08:04)
[2023-09-07] MEDS: Apixaban 5 MG TABLET PO (08:04)
[2023-09-07] MEDS: PHENobarbitaL 15 MG TABLET 75 MG PO (08:04)
[2023-09-07] MEDS: Thiamine HCL 100 MG TABLET PO (08:04)
[2023-09-07] MEDS: Empagliflozin 10 MG TABLET PO (08:04)
[2023-09-07] MEDS: Furosemide 40 MG/4 ML VIAL IVPUSH (08:04)
[2023-09-07] MEDS: Folic Acid 1 MG TABLET PO (08:04)
[2023-09-07 08:47] LABS: Magnesium 1.7 mg/dL (1.6-2.6)
--- NOTE | 2023-09-07 09:01 | MHC.CM.PN ---
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 Home/self care is the goal and CM has initiated and will follow for dc planning. HCP is /Lucy @ [phone] and the PCP is Dr. Jerri Bennett.
--- NOTE | 2023-09-07 11:18 | PM.PNCARD ---
Subjective Subjective Date of Service: 09/07/23 Interval history: Seen examined at bedside. Feeling better than yesterday. Still significantly volume overloaded. He has persistent atrial fibrillation and heart rates have been fluctuating at times and he gets tachycardic. Physical Exam Vital Signs: Last Vital Signs Temp 97.2 F 09/07/23 07:16 Pulse 75 09/07/23 07:16 Resp 16 09/07/23 07:16 BP 98/78 09/07/23 07:16 Pulse Ox 95 09/07/23 07:16 O2 Del Method Room Air 09/07/23 07:16 O2 Flow Rate 2 09/07/23 00:00 BMI result Body Mass Index 33.2 GENERAL APPEARANCE: in no acute distress, pleasant. NECK: no carotid bruit, ++ jugular venous distention. SKIN: no suspicious lesions, warm and dry. HEART: no murmurs, irregular rate and rhythm. LUNGS: clear to auscultation bilaterally. ABDOMEN: Distended. Nontender. EXTREMITIES: ++ edema. Left slightly more than right leg. PERIPHERAL PULSES: equal. NEUROLOGIC: No gross deficits, AAO X 3 Objective Labs and Meds 09/06/23 04:59 09/07/23 05:54 Lab results: Laboratory Results - last 24 hr 09/06/23 09/06/23 09/06/23 13:15 19:04 21:39 Hold Purple Top Sodium Potassium Chloride Carbon Dioxide Anion Gap BUN Creatinine Estim Creat Clear Calc Estimated GFR POC Glucose 138 H 160 H 157 H Random Glucose Calcium Magnesium Digoxin 09/06/23 09/07/23 09/07/23 22:16 05:54 07:24 Hold Purple Top SEE NOTE Sodium 132 L 131 L Potassium 3.8 D 3.8 Chloride 95 L 96 Carbon Dioxide 26 26 Anion Gap 15 13 BUN 18 H 18 H Creatinine 0.99 1.11 Estim Creat Clear Calc 101.0 90.1 Estimated GFR > 60 > 60 POC Glucose 127 H Random Glucose 134 H 104 Calcium 8.6 8.4 Magnesium 1.5 L 1.7 Digoxin 0.6 L Progress Note: A&P Assessment and plan (1) Atrial fibrillation with RVR: Status: Acute (2) Congestive heart failure: Status: Acute Plan [age] year gentleman with background of alcoholism, cardiomyopathy, persistent atrial fibrillation and history of pulmonary embolism. He has been on anticoagulation with Eliquis. He was referred to EP for AV christy ablation due to poor rate control. Plan was to do AV christy ablation and put a Bi V AICD. He was due to get it on . He got admitted to us for shortness of breath and congestive heart failure. Fairly volume overloaded still. Increasing Lasix to 80 mg IV b.i.d.. Continue spironolactone and monitor potassium closely. Potassium levels are improved and digoxin 125 mcg daily can be resumed. As he gets negative by tomorrow I think we can put him on metoprolol succinate 50 mg b.i.d.. Will discuss with [facility] electrophysiology for potential transfer for AV christy ablation and Bi V ICD. Thank you for allowing me to participate in the care of your patient. Please feel free to contact me if you have any questions. Time Spent With Patient Time: Total time managing care of this patient today ____ minutes. Progress Note: Quality Stroke Does the patient have a stroke diagnosis?: No Procedures Date of Service Date of Service: 09/07/23
[2023-09-07 11:36] LABS: Glucose, Whole Blood 89 mg/dL (60-115)
[2023-09-07 12:00] VITALS: BP 98/78; PULSE 75; RESP 16; TEMP 36.2; O2SAT 95
--- NOTE | 2023-09-07 12:09 | P.PNIM_ITS ---
Subjective Subjective Date of Service: 09/07/23 Interval History: Being followed for CHF/AFib with RVR, events from last night noted patient was treated with IV digoxin for rapid ventricular rate. This morning patient denies chest pain, no shortness of breath, no tremors, no nausea, no vomiting, feels leg swelling has improved was able to sleep well last night. This morning tele monitor shows heart rate in 1 teens to 120s. Review of Systems All other systems reviewed and negative Physical Exam 2 Vital Signs: Vital Signs: Last Vital Signs Temp 97.2 F 09/07/23 07:16 Pulse 75 09/07/23 07:16 Resp 16 09/07/23 07:16 BP 98/78 09/07/23 07:16 Pulse Ox 95 09/07/23 07:16 O2 Del Method Room Air 09/07/23 07:16 O2 Flow Rate 2 09/07/23 00:00 BMI result Body Mass Index 33.2 Const: Other: General awake alert x3, resting comfortably in no acute distress. Neck supple, + JVD. CVS irregular, rate rhythm, Respiratory lungs clear to auscultation, no respiratory distress, no wheeze, no rhonchi. Gastrointestinal abdomen soft, non tender, bowel sounds audible, no guarding , no rigidity. Extremities pitting edema improving. Neuro non focal ,speech clear, no tremors. Skin no rash, no jaundice Psych appropriate affect. Objective Data Active Medications Acetaminophen (Acetaminophen 325 Mg Tablet) 650 mg PO Q6H PRN PRN Reason: Pain, Mild (Pain Scale 1-3) Last Admin: 09/07/23 00:28 Dose: 650 mg Documented By: DARIUS Apixaban (Apixaban 5 Mg Tablet) 5 mg PO BID [facility] Last Admin: 09/07/23 08:04 Dose: 5 mg Documented By: EASTON Dextrose (Dextrose 50 % 25 Gm/50 Ml Syringe) 25 gm IVPUSH Q15M PRN; Protocol PRN Reason: per Hypoglycemia Standing Ord. Empagliflozin (Empagliflozin 10 Mg Tablet) 10 mg PO DAILY [facility] Last Admin: 09/07/23 08:04 Dose: 10 mg Documented By: EASTON Folic Acid (Folic Acid 1 Mg Tablet) 1 mg PO DAILY [facility] Last Admin: 09/07/23 08:04 Dose: 1 mg Documented By: EASTON Furosemide (Furosemide 40 Mg/4 Ml Vial) 80 mg IVPUSH BID@0900,1800 [facility]; Protocol Glucose (Glucose Gel 15 Gm Gel..Gram.) 15 gm PO Q15M PRN; Protocol PRN Reason: per Hypoglycemia Standing Ord. Magnesium Sulfate (Magnesium Sulfate/H2o) 2 gm in 50 mls @ 25 mls/hr IV ONCE ONE Stop: 09/07/23 12:51 Insulin Human Lispro (Insulin Lispro 100 Unit/Ml 3 Ml Vial) 0 unit SUBCUT QIDACHS [facility]; Protocol Last Admin: 09/07/23 11:43 Dose: Not Given Documented By: LASHAUN Non-Admin Reason: No Insulin Coverage Melatonin (Melatonin 3 Mg Tablet) 6 mg PO BEDTIME PRN PRN Reason: Insomnia Last Admin: 09/07/23 00:28 Dose: 6 mg Documented By: DARIUS Metoprolol Tartrate (Metoprolol Tartrate 5 Mg/5 Ml Vial) 5 mg IVPUSH Q6H PRN PRN Reason: hr > 110 Last Admin: 09/07/23 05:40 Dose: 5 mg Documented By: DARIUS Ondansetron HCl (Ondansetron Hcl 4 Mg/2 Ml Vial) 4 mg IVPUSH Q8H PRN PRN Reason: Nausea and Vomiting Last Admin: 09/06/23 23:16 Dose: 4 mg Documented By: DARIUS Pharmacy Consult (Consult Rx Etoh Phenob Im/Po) 1 each MISCELLANE ONCE PRN; Protocol PRN Reason: Consult order Phenobarbital (Phenobarbital 15 Mg Tablet) 75 mg PO BID [facility]; Protocol Stop: 09/08/23 09:01 Last Admin: 09/07/23 08:04 Dose: 75 mg Documented By: EASTON Phenobarbital (Phenobarbital 30 Mg Tablet) 30 mg PO BID [facility]; Protocol Stop: 09/10/23 09:01 Phenobarbital (Phenobarbital 30 Mg Tablet) 30 mg PO DAILY [facility]; Protocol Stop: 09/12/23 09:01 Potassium Chloride (Potassium Chloride Er 20 Meq Tab.Er.Prt) 40 meq PO DAILY [facility] Sodium Chloride (0.9 % Sodium Chloride Flush 3 Ml Syringe) 3 ml IVFLUSH [facility] Last Admin: 09/06/23 23:06 Dose: 3 ml Documented By: DARIUS Spironolactone (Spironolactone 25 Mg Tablet) 25 mg PO DAILY [facility]; Protocol Last Admin: 09/07/23 08:04 Dose: 25 mg Documented By: EASOTN Thiamine HCl (Thiamine Hcl 100 Mg Tablet) 100 mg PO DAILY [facility] Last Admin: 09/07/23 08:04 Dose: 100 mg Documented By: EASTON Labs 09/06/23 04:59 09/07/23 05:54 Labs: Laboratory Results - last 24 hr 09/06/23 09/06/23 09/06/23 13:15 19:04 21:39 Hold Purple Top Anion Gap Estim Creat Clear Calc Estimated GFR POC Glucose 138 H 160 H 157 H Random Glucose Calcium Magnesium Digoxin 09/06/23 09/07/23 09/07/23 22:16 05:54 07:24 Hold Purple Top SEE NOTE Anion Gap 15 13 Estim Creat Clear Calc 101.0 90.1 Estimated GFR > 60 > 60 POC Glucose 127 H Random Glucose 134 H 104 Calcium 8.6 8.4 Magnesium 1.5 L 1.7 Digoxin 0.6 L 09/07/23 11:23 Hold Purple Top Anion Gap Estim Creat Clear Calc Estimated GFR POC Glucose 89 Random Glucose Calcium Magnesium Digoxin Assessment and Plan (1) Atrial fibrillation with RVR: Status: Acute (2) Congestive heart failure: Status: Acute (3) Alcohol intoxication: Status: Acute Plan Atrial fibrillation with RVR Recurrent episodes related to alcohol use /withdrawal Heart rate in 1 teens to 120s patient asymptomatic will continue digoxin, continue Eliquis for AC Acute on chronic congestive heart failure with reduced EF Feels better, denies shortness of breath, clinically appears volume overloaded Case discussed with Dr. Arreola he recommend to up titrate dose of IV Lasix to 80 mg b.i.d. and continue spironolactone 25 mg daily. Continue Jardiance Will resume losartan and metoprolol as blood pressure allows Patient is scheduled for AV christy ablation and biventricular AICD placement at [facility] this plan is to stabilize him and transfer him to [facility] Acute hypokalemia likely due to diuretics repleted, follow BMP, added daily potassium. Acute hypo magnesemia repleted and normalized Alcohol use disorder with high risk for withdrawal continue phenobarb protocol, thiamine and folic acid Hyperglycemia, hemoglobin A1c through 5.8, Continue insulin sliding scale Class 2 obesity recommend low-calorie diet and weight reduction. Chronic thrombocytopenia likely due to alcohol is stable DVT prophylaxis with Eliquis Full code In my clinical judgment patient will require continued inpatient hospitalization for management of AFib with RVR and acute on chronic congestive heart failure requiring IV Lasix treatment can not be provided in less acute setting. Quality Stroke Does the patient have a stroke diagnosis?: No VTE Prior VTE?: No VTE Risk Level:: Medical - moderate - high VTE Device Contraindication: Treatment Not Indicated VTE Drug Contraindication: N/A - Med Ordered
[2023-09-07] MEDS: Magnesium Sulfate/H2O 2 GM/50 ML PIGGYBACK IV (12:41)
[2023-09-07] MEDS: Digoxin 0.125 MG TABLET PO (12:41)
[2023-09-07] MEDS: Potassium Chloride ER 20 MEQ TAB.ER.PRT 40 MEQ PO (12:41)
--- NOTE | 2023-09-07 12:52 | MHC.RECOVRN ---
Addiction Medicine consult received. Pt had presented to the ED reporting SOB, heart racing. Upon evaluation, pt admitted for afib with RVR as well as alcohol intoxication. Pt declined to meet with Addiction Consult Service. Andressa Jones APRN, aware.
--- NOTE | 2023-09-07 14:56 | PM.DS ---
DS: Providers Provider Date of Service: 09/07/23 Date of admission: 09/06/23 03:26 Primary care physician: Unknown Physician Consults: 09/06/23 03:27 Consult to Cardiology Routine Consulting Provider: [facility] Reason for consultation: afib with rvr Has provider been notified: Yes 09/06/23 03:39 Addiction Medicine Routine Consulting Provider: Addiction Covering Reason for consultation: alcohol use disorder 09/06/23 21:32 Consult to Wound Care Routine Reason for consultation: blanchable redness on buttocks DS: Diagnosis Discharge Diagnosis (1) Atrial fibrillation with RVR: Status: Acute (2) Congestive heart failure: Status: Acute (3) Alcohol intoxication: Status: Acute DS: Summary Hospital Course Hospital Course: History of presenting illness: Date of Service: 09/06/23 Chief Complaint: Palpitations This is a 58-year-old male with pertinent history of atrial fibrillation on Eliquis, congestive heart failure with, 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 Patient states the palpitations started on the day of presentation. He denies any dyspnea. Denies orthopnea or paroxysmal nocturnal dyspnea. Patient gets irritated when asked about alcohol use. States he never has had alcohol withdrawal before or alcohol seizures. Of note, patient was recently admitted on 08/30 with AFib with RVR and was recommended to be transferred to [facility] for possible admission. He does have a history of similar admissions in the past and history of leaving against medical advice. No fever, chills, chest discomfort, abdominal pain, changes in urinary or bowel habits. In the emergency department, BNP found to be elevated but imaging without overt pulmonary edema. He was initiated on phenobarb protocol in the ER. Hospital course: Persistent Atrial fibrillation with RVR history of recurrent episodes likely related to alcohol use initially treated with IV Cardizem drip heart rate improved, Cardizem discontinued but noted of intermittent RVR therefore continued on digoxin and placed on low-dose Toprol-XL 50 mg strongly recommend to abstain from alcohol use, patient is being transferred to [facility] for AV christy ablation and biventricular AICD placement, recommend to continue Eliquis Acute on chronic congestive heart failure with reduced EF , noted to have significant volume overload , being treated with IV Lasix 80 mg twice daily, spironolactone 25 mg daily and Jardiance, losartan held due to soft blood pressures, continue to follow electrolytes and renal function closely. Acute hypokalemia likely due to diuretics repleted, follow BMP, continue daily potassium. Acute hypo magnesemia repleted and normalized. Alcohol use disorder with high risk for withdrawal continue phenobarb protocol, thiamine and folic acid. Hyperglycemia, hemoglobin A1c through 5.8, recommend low carbohydrate diet. Class 2 obesity recommend low-calorie diet and weight reduction. Chronic thrombocytopenia/mild alcoholic hepatitis stable. Time Attestation Discharge Coordination Time: discharge time of ____ minutes Quality: Safe Use of Opioids Does Pt have an Active Cancer Diagnosis on the Problem List?: No Quality: Stroke Does the patient have a stroke diagnosis?: No Physical Exam Vital Signs: Vital Signs: Last Vital Signs Temp 97.2 F 09/07/23 12:00 Pulse 75 09/07/23 12:00 Resp 16 09/07/23 12:00 BP 98/78 09/07/23 12:00 Pulse Ox 95 09/07/23 12:00 O2 Del Method Room Air 09/07/23 12:00 O2 Flow Rate 2 09/07/23 00:00 BMI result Body Mass Index 33.2 Const: Other: General awake alert x3, resting comfortably in no acute distress. Neck supple, + JVD. CVS irregular, rate rhythm, Respiratory lungs clear to auscultation, no respiratory distress, no wheeze, no rhonchi. Gastrointestinal abdomen soft, non tender, bowel sounds audible, no guarding , no rigidity. Extremities pitting edema improving. Neuro non focal ,speech clear, no tremors. Skin no rash, no jaundice Psych appropriate affect. DS: Data Data Completed and Pending Completed studies during hospitalization [Text1]: Procedures Assistance with Respiratory Ventilation, Less than 24 Consecutive Hours, Continuous Positive Airway Pressure (12/22/22) Detoxification Services for Substance Abuse Treatment (05/17/23) Insertion of Endotracheal Airway into Trachea, Via Natural or Artificial Opening (11/11/21) Respiratory Ventilation, 24-96 Consecutive Hours (11/11/21) [place]ish of Cardiac Rhythm, Single (11/11/21) Labs on day of discharge: Laboratory Results - last 24 hr 09/06/23 09/06/23 09/06/23 19:04 21:39 22:16 Hold Purple Top Sodium 132 L Potassium 3.8 D Chloride 95 L Carbon Dioxide 26 Anion Gap 15 BUN 18 H Creatinine 0.99 Estim Creat Clear Calc 101.0 Estimated GFR > 60 POC Glucose 160 H 157 H Random Glucose 134 H Calcium 8.6 Magnesium 1.5 L Digoxin 09/07/23 09/07/23 09/07/23 05:54 07:24 11:23 Hold Purple Top SEE NOTE Sodium 131 L Potassium 3.8 Chloride 96 Carbon Dioxide 26 Anion Gap 13 BUN 18 H Creatinine 1.11 Estim Creat Clear Calc 90.1 Estimated GFR > 60 POC Glucose 127 H 89 Random Glucose 104 Calcium 8.4 Magnesium 1.7 Digoxin 0.6 L Discharge Plan Discharge Anticipated Discharge Date/Time: 09/07/23 14:45 Patient Disposition: Xfer Acute Care Hospital Discharge Diagnosis: Acute on chronic congestive heart failure with reduced EF Atrial fibrillation with RVR Alcohol use disorder with high risk for withdrawal Referrals: [facility] [Outside] - 1 Week Physician,Unknown J [Primary Care Provider] - 1 Week Discharge Medications: New phenobarbital 15 mg Tablet 75 mg PO BID Qty: 1 0RF spironolactone 25 mg Tablet 25 mg PO DAILY Qty: 30 0RF Protocol: Hold for SBP< HOLD for SBP < : 90 metoprolol succinate [Toprol XL] 50 mg tablet extended release 24 hr 50 mg PO DAILY Qty: 30 0RF furosemide 10 mg/mL Solution 80 mg IVPUSH BID@0900,1800 Qty: 4 0RF Protocol: Hold for SBP< HOLD for SBP < : 90 potassium chloride 20 mEq Tablet,Er Particles/Crystals 40 meq PO DAILY Qty: 30 0RF Continued Jardiance 10 mg tablet 10 mg PO DAILY Qty: 30 1RF folic acid 1 mg tablet 1 mg PO DAILY Qty: 90 1RF Eliquis 5 mg Tablet 5 mg PO BID Qty: 120 2RF digoxin 125 mcg (0.125 mg) tablet 0.125 mg PO DAILY Discontinued losartan 25 mg tablet 25 mg PO DAILY furosemide 40 mg tablet 40 mg PO DAILY metoprolol succinate 50 mg tablet extended release 24 hr 150 mg PO DAILY Protocol: Hold for SBP/HR < HOLD for SBP < : 90 HOLD for HR < : 60 Discharge Orders: Discharge Order (Routine); Ordered 09/07/23 Ordered By: Michael Rosales Diet: Low salt diet Activity on Discharge: As tolerated Stand Alone Forms: Patient Portal Discharge page Care Plan Goals: On phenobarb tapering dose 75 mg by mouth b.i.d. four more dose adjust left Then phenobarb 30 mg by mouth b.i.d. for 4 dosages, followed by phenobarb 30 mg by mouth daily for 2 dosages Continue IV Lasix 80 mg b.i.d. and adjust dosage Follow-up with cardiology at [facility] for AV christy ablation and Bi V ICD Health Concerns: Persistent atrial fibrillation, cardiomyopathy, history of pulmonary embolism, history of alcoholism Plan of Treatment: Outpatient follow-up with primary care physician and Cardiology Assessment: As above
[2023-09-07 15:01] VITALS: BP 112/58; PULSE 94; RESP 20; TEMP 36.7; O2SAT 98
--- NOTE | 2023-09-07 15:10 | MHC.CM.PN ---
Patient will be transferred to [facility] [place]
[2023-09-07 16:04] LABS: Glucose, Whole Blood 151 mg/dL (60-115)
[2023-09-07] MEDS: Insulin Lispro 100 UNIT/ML 3 ML VIAL SUBCUT (16:29)
[2023-09-07] MEDS: 0.9 % Sodium Chloride Flush 3 ML SYRINGE IVFLUSH (16:29)
== END 2023-09-07 17:33 | disposition short-term general hospital (02) | DRG 201 ==
LOC: HO.ED 02:47 → HO.EDOVER 03:29 → HO.S3 19:51 → HO.IMC 22:43
PROVIDERS: Physician Assistant; Admitting Provider Student in an Organized Health Care Education/Training Program; Emergency Provider Emergency Medicine; PCP Internal Medicine; Visit Provider Hospitalist
DX: I48.19 Other persistent atrial fibrillation (principal); I50.23 Acute on chronic systolic (congestive) heart failure; I42.6 Alcoholic cardiomyopathy; D69.59 Other secondary thrombocytopenia; F10.239 Alcohol dependence with withdrawal, unspecified; F10.229 Alcohol dependence with intoxication, unspecified; I11.0 Hypertensive heart disease with heart failure; K70.10 Alcoholic hepatitis without ascites; E66.8 Other obesity; E87.6 Hypokalemia; R73.9 Hyperglycemia, unspecified; Y90.7 Blood alcohol level of 200-239 mg/100 ml; Z68.33 Body mass index [BMI] 33.0-33.9, adult; Z79.01 Long term (current) use of anticoagulants; Z79.899 Other long term (current) drug therapy
CPT/HCPCS: 36415; 71045; 80048; 80162; 80307; 82947; 83036; 83735; 83880; 84443; 84484; 85025; 85027; 93005; 99285; J1160; J1940; J2405; J2560; J3411; J3475

== ENCOUNTER → 2023-09-06 03:26 | Outpatient (BNV) | payer OTHER, SELFPAY | PROVIDERS: Admitting Provider Student in an Organized Health Care Education/Training Program; Emergency Provider Emergency Medicine; Visit Provider Student in an Organized Health Care Education/Training Program | DX: I48.91 Unspecified atrial fibrillation (principal); I50.9 Heart failure, unspecified; F10.929 Alcohol use, unspecified with intoxication, unspecified | CPT/HCPCS: 99223; 99238; 99499 ==

== ENCOUNTER → 2023-09-06 03:26 | Outpatient (BNV) | payer OTHER, SELFPAY | PROVIDERS: Admitting Provider Student in an Organized Health Care Education/Training Program; Emergency Provider Emergency Medicine; Visit Provider Internal Medicine Cardiovascular Disease | DX: I48.91 Unspecified atrial fibrillation (principal); I50.9 Heart failure, unspecified; F10.90 Alcohol use, unspecified, uncomplicated | CPT/HCPCS: 93010; 99223; 99233 ==

== ENCOUNTER 2023-09-10 00:48 | Emergency (ER) | payer OTHER, SELFPAY ==
--- NOTE | ~2023-09-10 | CT_ITS ---
EXAMINATION: NONCONTRAST HEAD CT NONCONTRAST CERVICAL SPINE CT INDICATION INFORMATION: Fall, pain COMPARISON: 08/31/2023 TECHNIQUE: Separate noncontrast CT examinations of the head and cervical spine were performed. Coronal head CT images and coronal and sagittal cervical spine images were created at the technologist workstation. DLP: 1267 mGy-cm DOSE LOWERING TECHNIQUES: This CT examination was performed using dose optimization techniques as appropriate, variously including the following: - Automated exposure control - Adjustment of mA and/or kV according to patient size (this includes techniques or standardized protocols for targeted exams were dose is matched to indication/reason for exam; i.e. extremities or head) - Use of iterative reconstruction technique FINDINGS: Head: There is no evidence of acute intracranial hemorrhage or territorial infarction. No abnormal mass-effect or midline shift is seen. Ly to white matter differentiation is well preserved. No extra-axial fluid collections are identified. The ventricles are normal in size. Mild volume loss is noted. There is mild periventricular white matter hypoattenuation consistent with chronic small vessel ischemic disease. Right parietal skin sandeep noted. No acute fracture is seen. Small mucous retention cysts in the maxillary sinuses. The mastoid air cells are well-aerated. Cervical spine: There is anatomic alignment of the vertebral bodies and posterior elements. Vertebral body heights are maintained. Prominent facet arthropathy throughout the cervical spine. Mild disc space narrowing at C5-C6. Flowing anterior ossification throughout the cervical spine, in keeping with diffuse idiopathic skeletal hyperostosis. No evidence of acute fracture. No prevertebral soft tissue swelling. Visualized portions of the lung apices are unremarkable. The thyroid gland is unremarkable. CT/CT cervical spine wo IV con IMPRESSION: No acute findings identified in the head or cervical spine. Chronic appearing and degenerative changes as noted above.
--- NOTE | ~2023-09-10 | XR_ITS ---
EXAMINATION: XR CHEST CLINICAL INFORMATION: Weakness COMPARISON: 09/06/2023 TECHNIQUE: Frontal view of the chest was obtained. FINDINGS: Lung volumes are symmetric. Redemonstrated focal opacity in the lateral mid right lung, without significant change from prior. No new consolidation is seen. No evidence of pneumothorax, significant pleural effusion, or pulmonary edema. Cardiac silhouette remains enlarged. No acute osseous findings are seen. XR/XR chest 1V IMPRESSION: No new acute findings. Redemonstrated focal opacity in the lateral mid right lung, similar to prior and for which continued imaging follow-up is recommended to assess for resolution.
[2023-09-10 01:21] VITALS: BP 130/70; PULSE 85; O2SAT 98
[2023-09-10 01:26] VITALS: BP 114/73; PULSE 84; RESP 16; TEMP 36.6; O2SAT 99; BMI 31.7
--- NOTE | 2023-09-10 01:30 | ECG_ITS ---
Test Reason : FALL Blood Pressure : / mmHG Vent. Rate : 124 BPM Atrial Rate : 000 BPM P-R Int : 000 ms QRS Dur : 108 ms QT Int : 326 ms P-R-T Axes : 000 021 255 degrees QTc Int : 468 ms Atrial fibrillation with rapid ventricular response Anterior infarct , age undetermined Abnormal ECG When compared with ECG of 06-SEP-2023 22:00, No significant change was found Referred By: Lee Lynn Electronically Signed By:Wally Arreola
--- NOTE | 2023-09-10 01:34 | ED_ITS ---
HPI - Fall General Chief Complaint: Fall Stated Complaint: WEAKNESS X15 MIN,PICKED UP @[facility] PER EMS Time Seen by Provider: 09/10/23 01:34 Source: patient, old records reviewed and other Mode of arrival: EMS Limitations: no limitations History of Present Illness HPI Narrative: 58 yo male with severe CHF and cardiomyopathy EF 10-15%, PAF with afib with RVR, ETOH abuse, PE on eliquis, HTN who was just admitted for same - IV rate control and IV lasix transferred to [facility] on 09/06 for possible AV christy ablation and Bi V AICD he left [facility] AMA on 09/07 prior to any interventions. He returns tonight stating his legs gave out when he went to the store looking for soda and they just felt weak. He did not drink alcohol today. He didn't take his night medications. He is again in rapid afib and appears intoxicated. Denies head strike or LOC MD complaint: fall Onset (ago): minute(s) (just [employer]) Fall from: standing Fall witnessed: yes, by bystander Place fall occurred: other (store) Loss of consciousness: none Prolonged down time: no Symptoms prior to fall: other (states both legs just gave out) Context: alcohol use (he appears intoxicated) Location of injury: other (denies) Severity: mild Associated symptoms (after fall): denies Related Data Home Medications Medication Instructions Recorded Confirmed digoxin 125 mcg (0.125 mg) tablet 0.125 mg PO DAILY 08/17/23 09/06/23 Previous Rx's Medication Instructions Recorded empagliflozin 10 mg tablet 10 mg PO DAILY #30 tabs 11/18/22 (Jardiance) folic acid 1 mg tablet 1 mg PO DAILY #90 tabs 04/14/23 apixaban 5 mg tablet (Eliquis) 5 mg PO BID #120 tabs 05/24/23 furosemide 10 mg/mL injection 80 mg IVPUSH BID@0900,1800 #4 mL 09/07/23 solution metoprolol succinate 50 mg 50 mg PO DAILY #30 tabs 09/07/23 tablet,extended release 24 hr (Toprol XL) phenobarbital 15 mg tablet 75 mg (5 x 15 mg) PO BID #1 tab 09/07/23 potassium chloride 20 mEq 40 meq (2 x 20 mEq) PO DAILY #30 09/07/23 tablet,extended release(part/cryst) tabs spironolactone 25 mg tablet 25 mg PO DAILY #30 tabs 09/07/23 Allergies Allergy/AdvReac Type Severity Reaction Status Date / Time No Known Allergies Allergy Verified 08/17/23 14:55 [No Known Allergies*] Review of Systems 2 Review of Systems: Constitutional : No Fever, No Chills, No Fatigue ENT/Mouth : No sore throat, No Rhinorrhea Eyes: No Eye Pain, No Swelling, No Redness Cardiovascular : No Chest Pain, No SOB, No Dyspnea on Exertion Respiratory : No Cough, No Sputum Gastrointestinal : No Nausea, No Vomiting, No Diarrhea, No abdominal Pain Genitourinary : No Dysuria, No Urinary Frequency, No Hematuria, Musculoskeletal : No joint pain, No Myalgias, No Joint Swelling Skin : No Skin Lesions, No rash Neuro : No Weakness, No Numbness, No Dizziness, no Headache Psych : No Anxiety/Panic, No Depression All other systems reviewed and are negative [facility] Past Medical History Attestation statement: The following information was validated with the patient. Source: old records reviewed Medical History Chronic CHF Alcoholism CHF (congestive heart failure) Alcohol dependence with withdrawal Cardiomyopathy Chronic HFrEF (heart failure with reduced ejection fraction) Atrial fibrillation with rapid ventricular response Alcoholic hepatitis HTN (hypertension) Surgical History No pertinent past surgical history Family History Family History Father CAD (coronary artery disease) Mother Atrial fibrillation Social History Social History Household Members: None Housing: Apartment Do you presently have visiting nurse or other home services: No Unable to assess alcohol history related to: Unable to respond Alcohol intake: current Alcohol intake frequency: 3 or more drinks per day Alcohol type: hard liquor Comment: refuses alarms Patient Tobacco Use Status: Never used Tobacco Smoked in Last 30 Days: No Second Hand Smoke Exposure: No Advance Directives: Yes Advance Directives on File: Yes Advance Directives Date on File: 02/12/23 service: No Current occupational status: unemployed Physical Exam 2 Vital Signs: Vital Signs: Last Vital Signs Temp 98 F 09/10/23 01:26 Pulse 84 09/10/23 01:26 Resp 16 09/10/23 01:26 BP 114/73 09/10/23 01:26 Pulse Ox 99 09/10/23 01:26 O2 Del Method Room Air 09/10/23 01:26 BMI result Body Mass Index 31.7 Appearance: Alert. Oriented X3. No acute distress. ETOH odor, slurred speech Eyes: Pupils equal, round and reactive to light. some mild nystagmus noted ENT: Pharynx normal. atraumatic Neck: Normal inspection. Neck supple. CVS: irregular tachycardic heart rate and rhythm. Pulses normal. Respiratory: No respiratory distress. Breath sounds normal. Abdomen: Soft and nontender. Skin: Skin warm and dry. Normal skin color. Normal skin turgor. Extremities: 1+ pitting bilateral lower extremity edema. No calf ttp Neuro: Oriented X 3. No motor deficit. No sensory deficit. Course Course Course Narrative: repeat IV lopressor ordered Medications Administered Discontinued Medications Generic Name Dose Route Start Last Admin Trade Name Freq PRN Reason Stop Dose Admin Furosemide 20 mg 09/10/23 01:41 09/10/23 02:27 Furosemide 20 Mg/2 Ml Vial IVPUSH 09/10/23 01:42 20 mg ONCE ONE Administration Protocol Magnesium Sulfate 2 gm in 50 mls @ 25 mls/hr 09/10/23 01:33 09/10/23 04:52 Magnesium Sulfate/H2o IV 09/10/23 03:32 Infused ONCE ONE Infusion Thiamine HCl 200 mg/ Sodium 102 mls @ 204 mls/hr 09/10/23 01:33 09/10/23 03:20 Chloride IV 09/10/23 02:02 Infused ONCE ONE Infusion Metoprolol Tartrate 5 mg 09/10/23 01:41 09/10/23 02:27 Metoprolol Tartrate 5 Mg/5 Ml Vial IVPUSH 09/10/23 01:42 5 mg ONCE ONE Administration Metoprolol Tartrate 5 mg 09/10/23 02:47 09/10/23 03:33 Metoprolol Tartrate 5 Mg/5 Ml Vial IVPUSH 09/10/23 02:48 5 mg ONCE ONE Administration Medical Decision Making Medical Decision Making MDM Narrative: 58 yo male with severe CHF and cardiomyopathy EF 10-15%, PAF with afib with RVR, ETOH abuse, PE on eliquis, HTN just admitted here for CHF and afib with RVR - transferred to [facility] on 09/06 for av christy ablation and Bi V AICD but he left AMA. He appears intoxicated and reports a fall at this time labs, IV lopressor, IV lasix, CT scan of head/neck, CXR, IV thiamine and magnesium, likely repeat admission if I cannot control his heart rate. He already states he is not going to go back to [facility] as he doesn't like it there. He denies ETOH use and states he hasn't drank in 2 months which is obviously untrue since he just had positve ETOH level and appears intoxicated here too. Differential Diagnosis Differential Diagnoses: The differential diagnosis associated with the presentation includes alcohol abuse, lyte abnormality, afib with RVR, noncompliance Admission/Observation Consideration of admission/observation: Escalation of care including admission/observation considered HR down to 90s with only two doses CXR clear BNP lower than it has been in many months only 1+ pitting edema to the legs no O2 requirement Consult Healthcare Provider Management of the patient was discussed with: Hospitalist (will admit) and Cigarette Making Examiner (notified cardiology ) Lab Data MDM Lab Attestation statement: I reviewed the patient's lab results. 09/10/23 02:06 09/10/23 02:06 Labs: Lab Results 09/10/23 09/10/23 09/10/23 Range/Units 01:50 02:06 02:08 WBC 4.1 L (4.8-10.8) X10*3/uL RBC 3.36 L (4.60-5.80) X10*6/uL Hgb 11.4 L (14.0-18.0) g/dl Hct 34.9 L (42.0-52.0) % MCV 103.9 H (80.0-98.0) fL MCH 33.9 H (27.0-33.0) pg MCHC 32.7 (31.0-36.0) g/dl RDW 17.1 H (11.0-16.0) % Plt Count 145 L (160-400) X10*3/uL MPV 9.9 (9.4-12.4) fL Immature Gran % (Auto) 0.5 H (0.0-0.4) % Neut % (Auto) 56.5 (45-73) % Lymph % (Auto) 30.0 (20-40) % [place] % (Auto) 11.3 H (2-11) % Eos % (Auto) 1.0 (0-4) % Baso % (Auto) 0.7 (0-2) % Lymph # (Auto) 1.2 (1.2-4.9) X10*3/uL [place] # (Auto) 0.5 (0.1-1.2) X10*3/uL Eos # (Auto) 0.0 (0.0-0.4) X10*3/uL Baso # (Auto) 0.0 (0.0-0.2) X10*3/uL Abs Immat Gran (auto) 0.02 (0.00-0.03) X10*3/uL Absolute Neuts (auto) 2.3 (2.0-8.3) x10*3/uL Absolute Nucleated RBC 0.000 (0.0-0.012) X10*3/uL Nucleated RBC % (auto) 0.0 (0.0-0.2) /100WBC PT 13.2 D (11.1-13.3) SEC INR 1.1 (0.9-1.1) Sodium 138 (135-145) mmol/L Potassium 3.7 (3.3-5.1) mmol/L Chloride 100 (96-108) mmol/L Carbon Dioxide 30 H (22-29) mmol/L Anion Gap 12 (12-20) BUN 17 H (9-16) mg/dL Creatinine 1.07 (0.5-1.4) mg/dL Estim Creat Clear Calc 94.1 Estimated GFR > 60 Random Glucose 64 (60-115) mg/dL Calcium 8.2 L (8.4-10.2) mg/dL Magnesium 2.0 (1.6-2.6) mg/dL Total Bilirubin 0.7 (0.0-1.0) mg/dL AST 30 (5-37) U/L ALT 25 (0-40) U/L Alkaline Phosphatase 183 H (39-117) U/L Troponin I High Sens 15.8 D (<3.5-35.0) ng/L B-Natriuretic Peptide 1045 H (<100) pg/mL Total Protein 6.7 (6.5-8.0) g/dL Albumin 3.7 (3.5-5.0) g/dL Lipase 26 (8-78) U/L Urine Color Urine Appearance Urine pH (5.0-9.0) Ur Specific [place] (1.005-1.025) Urine Protein (Neg-Trace) mg/dL Urine Glucose (UA) (Negative) mg/dL Urine Ketones (Negative) mg/dL Urine Blood (Negative) Urine Nitrite (Negative) Ur Leukocyte Esterase (Negative) Urine RBC (0-2) /HPF Urine WBC (0-5) /HPF Ur Squamous Epith Cells (0-2) /HPF Urine Bacteria (None Seen) Hyaline Casts (0-2) /LPF Digoxin (0.8-2.0) ng/mL Urine Opiates Screen (Not Detect) Urine Fentanyl Screen (Not Detect) Ur Barbiturates Screen (Not Detect) Ur Phencyclidine Scrn (Not Detect) Ur Amphetamines Screen (Not Detect) U Benzodiazepines Scrn (Not Detect) Urine Cocaine Screen (Not Detect) U Marijuana (THC) Screen (Not Detect) Ethyl Alcohol 221 mg/dL Influenza Type A (PCR) NEGATIVE (Negative) Influenza Type B (PCR) NEGATIVE (Negative) RSV RNA Qual (PCR) NEGATIVE (Negative) SARS-CoV-2 RNA (RT-PCR) NEGATIVE (Negative) 09/10/23 Range/Units 04:05 WBC (4.8-10.8) X10*3/uL RBC (4.60-5.80) X10*6/uL Hgb (14.0-18.0) g/dl Hct (42.0-52.0) % MCV (80.0-98.0) fL MCH (27.0-33.0) pg MCHC (31.0-36.0) g/dl RDW (11.0-16.0) % Plt Count (160-400) X10*3/uL MPV (9.4-12.4) fL Immature Gran % (Auto) (0.0-0.4) % Neut % (Auto) (45-73) % Lymph % (Auto) (20-40) % [place] % (Auto) (2-11) % Eos % (Auto) (0-4) % Baso % (Auto) (0-2) % Lymph # (Auto) (1.2-4.9) X10*3/uL [place] # (Auto) (0.1-1.2) X10*3/uL Eos # (Auto) (0.0-0.4) X10*3/uL Baso # (Auto) (0.0-0.2) X10*3/uL Abs Immat Gran (auto) (0.00-0.03) X10*3/uL Absolute Neuts (auto) (2.0-8.3) x10*3/uL Absolute Nucleated RBC (0.0-0.012) X10*3/uL Nucleated RBC % (auto) (0.0-0.2) /100WBC PT (11.1-13.3) SEC INR (0.9-1.1) Sodium (135-145) mmol/L Potassium (3.3-5.1) mmol/L Chloride (96-108) mmol/L Carbon Dioxide (22-29) mmol/L Anion Gap (12-20) BUN (9-16) mg/dL Creatinine (0.5-1.4) mg/dL Estim Creat Clear Calc Estimated GFR Random Glucose (60-115) mg/dL Calcium (8.4-10.2) mg/dL Magnesium (1.6-2.6) mg/dL Total Bilirubin (0.0-1.0) mg/dL AST (5-37) U/L ALT (0-40) U/L Alkaline Phosphatase (39-117) U/L Troponin I High Sens (<3.5-35.0) ng/L B-Natriuretic Peptide (<100) pg/mL Total Protein (6.5-8.0) g/dL Albumin (3.5-5.0) g/dL Lipase (8-78) U/L Urine Color Yellow Urine Appearance Clear Urine pH 6.5 (5.0-9.0) Ur Specific [place] 1.015 (1.005-1.025) Urine Protein Trace (Neg-Trace) mg/dL Urine Glucose (UA) >=1000 H (Negative) mg/dL Urine Ketones Negative (Negative) mg/dL Urine Blood Negative (Negative) Urine Nitrite Negative (Negative) Ur Leukocyte Esterase Negative (Negative) Urine RBC 0-2 (0-2) /HPF Urine WBC 0-5 (0-5) /HPF Ur Squamous Epith Cells 0-2 (0-2) /HPF Urine Bacteria None Seen (None Seen) Hyaline Casts 0-2 (0-2) /LPF Digoxin 0.3 L (0.8-2.0) ng/mL Urine Opiates Screen Not Detected (Not Detect) Urine Fentanyl Screen Not Detected (Not Detect) Ur Barbiturates Screen POSITIVE H (Not Detect) Ur Phencyclidine Scrn Not Detected (Not Detect) Ur Amphetamines Screen Not Detected (Not Detect) U Benzodiazepines Scrn Not Detected (Not Detect) Urine Cocaine Screen Not Detected (Not Detect) U Marijuana (THC) Screen Not Detected (Not Detect) Ethyl Alcohol mg/dL Influenza Type A (PCR) (Negative) Influenza Type B (PCR) (Negative) RSV RNA Qual (PCR) (Negative) SARS-CoV-2 RNA (RT-PCR) (Negative) Independent Interpretation I performed an independent interpretation of an: EKG, Plain X-Ray (normal ) and CT Scan (no trauma noted) Interpretation: Rate: 124 Rhythm: afib with RVR [place]: normal Normal QRS complex. ST T wave : nonspecific ST T wave changes I, aVL, V6 no LORI qTC: 468 prior studies: no acute ischemia The study has been interpreted contemporaneously by me. . Radiology Impression Discussion of test interpretation with radiology: I have reviewed the radiologist's reading. Independent Historian Clinical information obtained from an independent historian. History obtained from or confirmed by: EMS External Record Review External record reviewed: Inpatient record and Outpatient record Critical Care Time Critical Care Time Critical Care Time: Yes Total Critical Care Time: 60 Attestation: repeat IV lopressor, phenobarb protocol, IV magnesium, review of inpatient and outpatient records, admission I attest to this time spent taking care of the patient Discharge Plan Discharge Clinical Impression: Atrial fibrillation with rapid ventricular response, Alcohol use disorder, Medical non-compliance Patient Disposition: Home, Self-Care Instructions: A-fib (Atrial Fibrillation) (ED), Alcohol Use Disorder (ED) Additional Instructions: please take all of your medications - you have to stop drinking. return for any worsening symptoms or concerns. you should return for chest pain, leg swelling, dyspnea, increased heart rate or any other concerns. Prescriptions: No Action Jardiance 10 mg tablet 10 mg PO DAILY Qty: 30 1RF folic acid 1 mg tablet 1 mg PO DAILY Qty: 90 1RF Eliquis 5 mg Tablet 5 mg PO BID Qty: 120 2RF digoxin 125 mcg (0.125 mg) tablet 0.125 mg PO DAILY furosemide 10 mg/mL Solution 80 mg IVPUSH BID@0900,1800 Qty: 4 0RF Protocol: Hold for SBP< HOLD for SBP < : 90 spironolactone 25 mg Tablet 25 mg PO DAILY Qty: 30 0RF Protocol: Hold for SBP< HOLD for SBP < : 90 potassium chloride 20 mEq Tablet,Er Particles/Crystals 40 meq PO DAILY Qty: 30 0RF phenobarbital 15 mg Tablet 75 mg PO BID Qty: 1 0RF metoprolol succinate [Toprol XL] 50 mg tablet extended release 24 hr 50 mg PO DAILY Qty: 30 0RF
[2023-09-10 02:24] LABS: MANUAL DIFF FLAG NO
[2023-09-10 02:26] LABS: Basophils Percent Auto 0.7 % (0-2); Hematocrit 34.9 % (42.0-52.0); Hemoglobin 11.4 g/dl (14.0-18.0); Imm Gran Abs Auto 0.02 X10*3/uL (0.00-0.03); Imm Gran Pct Auto 0.5 % (0.0-0.4); Lymphocytes Absolute Auto 1.2 X10*3/uL (1.2-4.9); Mean Corpuscular HGB Conc 32.7 g/dl (31.0-36.0); Mean Corpuscular Hemoglobin 33.9 pg (27.0-33.0); Mean Corpuscular Volume 103.9 fL (80.0-98.0); Mean Platelet Volume 9.9 fL (9.4-12.4); Monocytes Absolute Auto 0.5 X10*3/uL (0.1-1.2); Monocytes Percent Auto 11.3 % (2-11); Neutrophils Absolute Auto 2.3 x10*3/uL (2.0-8.3); Neutrophils Percent Auto 56.5 % (45-73); Platelet Count 145 X10*3/uL (160-400); Red Blood Count 3.36 X10*6/uL (4.60-5.80); Red Cell Distribution Width 17.1 % (11.0-16.0); White Blood Count 4.1 X10*3/uL (4.8-10.8)
[2023-09-10] MEDS: Furosemide 20 MG/2 ML VIAL IVPUSH (02:27)
[2023-09-10] MEDS: Metoprolol Tartrate 5 MG/5 ML VIAL IVPUSH ×2 (02:27→03:33)
[2023-09-10 02:31] LABS: Influenza A PCR NEGATIVE (Negative); Influenza B PCR NEGATIVE (Negative); Resp Syncy Virus RNA Qual PCR NEGATIVE (Negative); SARS COV2 PCR INHOUSE NEGATIVE (Negative)
[2023-09-10 02:41] LABS: Alanine Aminotransferase 25 U/L (0-40); Albumin Level 3.7 g/dL (3.5-5.0); Alkaline Phosphatase 183 U/L (39-117); Anion Gap 12 (12-20); Aspartate Amino Transferase 30 U/L (5-37); Bilirubin Total 0.7 mg/dL (0.0-1.0); Blood Urea Nitrogen 17 mg/dL (9-16); Calcium 8.2 mg/dL (8.4-10.2); Carbon Dioxide 30 mmol/L (22-29); Chloride 100 mmol/L (96-108); Creatinine Clr Calc Pharmacy 94.1; Estimated Glomerular Filt Rate > 60; Ethanol 221 mg/dL; Glucose Random 64 mg/dL (60-115); INTERNATIONAL NORM RATIO 1.1 (0.9-1.1); Lipase 26 U/L (8-78); Potassium 3.7 mmol/L (3.3-5.1); Prothrombin Time 13.2 SEC (11.1-13.3); Sodium 138 mmol/L (135-145); Total Protein 6.7 g/dL (6.5-8.0)
[2023-09-10 02:48] LABS: Troponin-I High Sensitivity 15.8 ng/L (<3.5-35.0)
[2023-09-10] MEDS: Thiamine HCL 200 MG in 0.9 % Sodium Chloride 100 ML 204 MG IV (02:51)
[2023-09-10] MEDS: Magnesium Sulfate/H2O 2 GM/50 ML PIGGYBACK IV (02:51)
[2023-09-10 02:52] LABS: B Type Natriuretic Peptide 1045 pg/mL (<100)
--- NOTE | 2023-09-10 03:44 | PC.NURSE ---
PT continues to deny alcohol use, however ethanol is 221.
[2023-09-10 04:14] LABS: Appearance Urine Clear; Color Urine Yellow; Glucose Urine UA >=1000 mg/dL (Negative); Leukocyte Esterase Urine Negative (Negative); Nitrite Urine Negative (Negative); PH 6.5 (5.0-9.0); Specific Gravity - Urine 1.015 (1.005-1.025); UMIC TRIGGER UACC YES; Urine Blood Negative (Negative); Urine Ketones Negative (Negative); Urine Protein Trace mg/dL (Neg-Trace)
[2023-09-10 04:19] LABS: Bacteria Urine None Seen (None Seen); Hyaline Casts Urine 0-2 /LPF (0-2); RBC Urine 0-2 /HPF (0-2); Squamous Epithelial Cell Urine 0-2 /HPF (0-2); WBC Urine 0-5 /HPF (0-5)
[2023-09-10 04:21] LABS: Amphetamine Screen Urine Not Detected (Not Detect); Barbiturates, Urine POSITIVE (Not Detect); Benzodiazepines Screen Urine Not Detected (Not Detect); Cannabinoid Screen Urine Not Detected (Not Detect); Cocaine Screen Urine Not Detected (Not Detect); Fentanyl, urine Not Detected (Not Detect); Opiate Screen Urine Not Detected (Not Detect); Phencyclidine Screen Urine Not Detected (Not Detect)
[2023-09-10 04:25] LABS: Digoxin 0.3 ng/mL (0.8-2.0)
== END 2023-09-10 06:00 | disposition home or self-care (01) ==
PROVIDERS: Physician Assistant; Emergency Provider Emergency Medicine; PCP Internal Medicine
DX: I48.20 Chronic atrial fibrillation, unspecified (principal); F10.20 Alcohol dependence, uncomplicated; Y90.7 Blood alcohol level of 200-239 mg/100 ml; R60.0 Localized edema; Z91.199 Patient's noncompliance with other medical treatment and regimen due to unspecified reason; Z11.52 Encounter for screening for COVID-19; Z20.828 Contact with and (suspected) exposure to other viral communicable diseases; K70.10 Alcoholic hepatitis without ascites; I11.0 Hypertensive heart disease with heart failure; I50.22 Chronic systolic (congestive) heart failure; Z86.711 Personal history of pulmonary embolism; Z79.01 Long term (current) use of anticoagulants; Z79.899 Other long term (current) drug therapy
CPT/HCPCS: 0241U; 36415; 70450; 71045; 72125; 80053; 80162; 80307; 81001; 83690; 83735; 83880; 84484; 85025; 85610; 93005; 96365; 96367; 96375; 96376; 99285; J1940; J3411; J3475

== ENCOUNTER → 2023-09-10 01:30 | Outpatient (BNV) | payer OTHER, SELFPAY | PROVIDERS: Emergency Provider Emergency Medicine; PCP Internal Medicine; Visit Provider Internal Medicine Cardiovascular Disease | DX: R94.31 Abnormal electrocardiogram [ECG] [EKG] (principal) | CPT/HCPCS: 93010 ==

== ENCOUNTER 2023-09-12 11:30 | Emergency (ER) | payer OTHER, SELFPAY ==
[2023-09-12 11:57] VITALS: BP 114/81; PULSE 100; RESP 19; TEMP 36.6; O2SAT 98; BMI 28.7
--- NOTE | 2023-09-12 12:04 | ED.GENADULT ---
HPI - General Adult General Chief complaint: General Medical Stated complaint: Medical Clearance Time Seen by Provider: 09/12/23 13:15 Source: patient Mode of arrival: ambulatory Limitations: no limitations History of Present Illness HPI narrative: 58-year-old male with a history of AFib anticoagulated, CHF presents the ER seeking medical clearance to go to rehab for alcohol use disorder. Has no physical complaints. Has plans to go to a rehab facility and [facility] and seeking medical clearance. Related Data Home Medications Medication Instructions Recorded Confirmed digoxin 125 mcg (0.125 mg) tablet 0.125 mg PO DAILY 08/17/23 09/06/23 Previous Rx's Medication Instructions Recorded empagliflozin 10 mg tablet 10 mg PO DAILY #30 tabs 11/18/22 (Jardiance) folic acid 1 mg tablet 1 mg PO DAILY #90 tabs 04/14/23 apixaban 5 mg tablet (Eliquis) 5 mg PO BID #120 tabs 05/24/23 furosemide 10 mg/mL injection 80 mg IVPUSH BID@0900,1800 #4 mL 09/07/23 solution metoprolol succinate 50 mg 50 mg PO DAILY #30 tabs 09/07/23 tablet,extended release 24 hr (Toprol XL) phenobarbital 15 mg tablet 75 mg (5 x 15 mg) PO BID #1 tab 09/07/23 potassium chloride 20 mEq 40 meq (2 x 20 mEq) PO DAILY #30 09/07/23 tablet,extended release(part/cryst) tabs spironolactone 25 mg tablet 25 mg PO DAILY #30 tabs 09/07/23 Allergies Allergy/AdvReac Type Severity Reaction Status Date / Time No Known Allergies Allergy Verified 09/12/23 11:56 [No Known Allergies*] Review of Systems Review of Systems: Yes all other systems are reviewed and are negative Constitutional: Constitutional: Reports no additional constitutional complaints, Denies body ache(s), Denies chills, Denies fever(s), Denies headache(s) and Denies weakness Eyes: Eyes: Reports no additional eye complaints and Denies change in vision ENT: Reports system reviewed and no additional complaints, except as documented, Denies dizziness, Denies headache(s), Denies nasal congestion, Denies nasal discharge and Denies neck pain Cardiovascular: Cardiovascular: Reports no additional cardiovascular complaints, Denies chest pain, Denies leg edema and Denies dyspnea Respiratory: Respiratory: Reports no additional respiratory complaints, Denies cough and Denies dyspnea Gastrointestinal: Gastrointestinal: Reports no additional gastrointestinal complaints, Denies abdominal pain, Denies diarrhea, Denies nausea and Denies vomiting Genitourinary: Genitourinary: Denies urinary incontinence Musculoskeletal: Musculoskeletal: Reports no additional musculoskeletal complaints, Denies back pain, Denies arthralgias, Denies joint swelling, Denies neck pain, Denies numbness and Denies tingling Integumentary/Breasts: Skin/Breast: Reports system reviewed and no additional complaints, except as docu and Denies rash Neurologic: Reports system reviewed and no additional complaints, except as documented, Denies Abnormal speech present, Denies dizziness, Denies headache(s), Denies numbness, Denies tingling and Denies weakness PMFSH Past Medical History Attestation statement: The following information was validated with the patient. Source: old records reviewed and nursing notes reviewed Medical History Chronic CHF Alcoholism CHF (congestive heart failure) Alcohol dependence with withdrawal Cardiomyopathy Chronic HFrEF (heart failure with reduced ejection fraction) Atrial fibrillation with rapid ventricular response Alcoholic hepatitis HTN (hypertension) Surgical History No pertinent past surgical history Family History Family History Father CAD (coronary artery disease) Mother Atrial fibrillation Social History Social History Household Members: None Housing: Apartment Do you presently have visiting nurse or other home services: No Unable to assess alcohol history related to: Unable to respond Alcohol intake: current Alcohol intake frequency: 3 or more drinks per day Alcohol type: hard liquor Comment: refuses alarms Patient Tobacco Use Status: Never used Tobacco Second Hand Smoke Exposure: No Advance Directives: Yes Advance Directives on File: Yes Advance Directives Date on File: 02/12/23 service: No Current occupational status: unemployed Physical Exam ED Vital Signs: Vital Signs - 24 hr 09/12/23 11:57 Temperature 98 F Pulse Rate 100 Respiratory Rate 19 Blood Pressure 114/81 Pulse Oximetry 98 Oxygen Delivery Method Room Air BMI result Body Mass Index 28.7 Const General: cooperative, healthy appearing, comfortable and no acute distress Orientation/consciousness: patient oriented x3 Limitations: no limitations HENMT Head: Yes normal to inspection Ears: hearing grossly normal bilaterally General nose exam: Normal external nose present Face and sinus: Yes normal facial exam Mouth: Normal oral and palatal mucosa present Throat: Yes posterior oropharynx normal Eyes General: appearance normal, both eyes and all related structures Pupils: Equal, round and reactive pupils present Neck Neck: Yes normal visual inspection Chest Chest palpation & inspection: normal inspection of the chest Resp Effort & Inspection: normal respiratory effort Auscultation: clear to auscultation bilaterally Cardio Rate: regular rate Rhythm: regular rhythm Peripheral pulses: Peripheral pulses 2+ throughout GI Inspection: Yes normal to inspection Palpation (GI): Soft to palpation and nontender Auscultation: normal bowel sounds Back/Spine/Pelvis Thoracic/Lumbar Spine: thoracic and lumbar spine normal to inspection Skin General skin exam: no rashes or lesions noted Neuro General: patient oriented x3, no focal motor deficits and normal sensation to monofilament Cranial nerves: Yes Equal, round and reactive pupils present Cognition (Neuro): normal cognition Speech: No Abnormal speech present Gait exam (Neuro): Normal gait present Motor exam (neuro): 5/5 motor strength present throughout Extrem General: Yes normal to inspection Course Course Course Narrative: This is a rapid medical exam. Deferred additional HPI, ROS, PE to primary provider. 58 yo male with history of alcohol use disorder, afib on eliquis, CHF here seeking medical clearance to go to rehab for alcohol. Has bed but needs medical clearance. No physical complaints. Will need labs, [place] VSS Reevaluation(s) Reevaluation #1: Labs are at baseline for patient. Potassium was mildly decreased so patient received an oral placement. EKG shows AFib rate controlled. Patient was given copies of his EKG and labs and referred to his rehab facility. Medications Administered Discontinued Medications Generic Name Dose Route Start Last Admin Trade Name Freq PRN Reason Stop Dose Admin Potassium Chloride 20 meq 09/12/23 13:15 09/12/23 13:24 Potassium Chloride Er 20 Meq Tab.Er.Prt PO 09/12/23 13:16 20 meq ONCE ONE Administration Medical Decision Making Medical Decision Making MDM Narrative: 58-year-old male with a history of AFib anticoagulated, CHF presents the ER seeking medical clearance to go to rehab for alcohol use disorder. Has no physical complaints. Has plans to go to a rehab facility and [facility] and seeking medical clearance. No physical complaints. Vitals are stable. Exam is normal. Will obtain labs, drug screen and EKG Differential Diagnosis Differential Diagnoses: The differential diagnosis associated with the presentation includes Medical clearance Admission/Observation Consideration of admission/observation: Escalation of care including admission/observation considered Lab Data MDM Lab Attestation statement: I reviewed the patient's lab results. Labs show anemia at baseline, mild hypokalemia, creatinine 1.48 with normal BUN 09/12/23 12:16 09/12/23 12:16 Labs: Lab Results 09/12/23 Range/Units 12:16 WBC 5.9 (4.8-10.8) X10*3/uL RBC 3.38 L (4.60-5.80) X10*6/uL Hgb 11.4 L (14.0-18.0) g/dl Hct 35.0 L (42.0-52.0) % MCV 103.6 H (80.0-98.0) fL MCH 33.7 H (27.0-33.0) pg MCHC 32.6 (31.0-36.0) g/dl RDW 16.8 H (11.0-16.0) % Plt Count 141 L (160-400) X10*3/uL MPV 10.4 (9.4-12.4) fL Immature Gran % (Auto) 0.3 (0.0-0.4) % Neut % (Auto) 61.2 (45-73) % Lymph % (Auto) 22.0 (20-40) % [place] % (Auto) 14.7 H (2-11) % Eos % (Auto) 0.9 (0-4) % Baso % (Auto) 0.9 (0-2) % Lymph # (Auto) 1.3 (1.2-4.9) X10*3/uL [place] # (Auto) 0.9 (0.1-1.2) X10*3/uL Eos # (Auto) 0.1 (0.0-0.4) X10*3/uL Baso # (Auto) 0.1 (0.0-0.2) X10*3/uL Abs Immat Gran (auto) 0.02 (0.00-0.03) X10*3/uL Absolute Neuts (auto) 3.6 (2.0-8.3) x10*3/uL Absolute Nucleated RBC 0.000 (0.0-0.012) X10*3/uL Nucleated RBC % (auto) 0.0 (0.0-0.2) /100WBC Sodium 138 (135-145) mmol/L Potassium 3.1 L (3.3-5.1) mmol/L Chloride 95 L (96-108) mmol/L Carbon Dioxide 31 H (22-29) mmol/L Anion Gap 15 (12-20) BUN 14 (9-16) mg/dL Creatinine 1.48 H (0.5-1.4) mg/dL Estim Creat Clear Calc 63.1 Estimated GFR 49 Random Glucose 86 (60-115) mg/dL Calcium 9.1 D (8.4-10.2) mg/dL Total Bilirubin 1.7 H (0.0-1.0) mg/dL Direct Bilirubin 0.9 H (0.0-0.5) mg/dL AST 29 (5-37) U/L ALT 21 (0-40) U/L Alkaline Phosphatase 137 H (39-117) U/L Total Protein 6.5 (6.5-8.0) g/dL Albumin 3.7 (3.5-5.0) g/dL Urine Opiates Screen Not Detected (Not Detect) Urine Fentanyl Screen Not Detected (Not Detect) Ur Barbiturates Screen POSITIVE H (Not Detect) Ur Phencyclidine Scrn Not Detected (Not Detect) Ur Amphetamines Screen Not Detected (Not Detect) U Benzodiazepines Scrn Not Detected (Not Detect) Urine Cocaine Screen Not Detected (Not Detect) U Marijuana (THC) Screen Not Detected (Not Detect) Independent Interpretation I performed an independent interpretation of an: EKG Interpretation: I independently reviewed the EKG which shows AFib with a rate 98, normal QRS normal QT Discharge Plan Discharge Clinical Impression: Alcohol use disorder, moderate, dependence Patient Disposition: Home, Self-Care Instructions: Alcohol Use Disorder (ED) Additional Instructions: Your labs show that your potassium level is mildly decreased. You received an oral supplement for this. You should eat potassium rich foods. Your labs also showed that you have mild anemia which is your baseline and chronic kidney disease. Your EKG shows that you are in AFib but your rate is controlled. Please continue with your plan to go to rehab Prescriptions: No Action Jardiance 10 mg tablet 10 mg PO DAILY Qty: 30 1RF folic acid 1 mg tablet 1 mg PO DAILY Qty: 90 1RF Eliquis 5 mg Tablet 5 mg PO BID Qty: 120 2RF digoxin 125 mcg (0.125 mg) tablet 0.125 mg PO DAILY furosemide 10 mg/mL Solution 80 mg IVPUSH BID@0900,1800 Qty: 4 0RF Protocol: Hold for SBP< HOLD for SBP < : 90 spironolactone 25 mg Tablet 25 mg PO DAILY Qty: 30 0RF Protocol: Hold for SBP< HOLD for SBP < : 90 potassium chloride 20 mEq Tablet,Er Particles/Crystals 40 meq PO DAILY Qty: 30 0RF phenobarbital 15 mg Tablet 75 mg PO BID Qty: 1 0RF metoprolol succinate [Toprol XL] 50 mg tablet extended release 24 hr 50 mg PO DAILY Qty: 30 0RF Referrals: Physician,None [Primary Care Provider] - 1 week Interventions: ED Discharge Assessment Last Done: 09/12/23 13:25 Discharge Date/Time: 09/12/23 13:26
[2023-09-12 12:23] LABS: MANUAL DIFF FLAG NO
[2023-09-12 12:36] LABS: Amphetamine Screen Urine Not Detected (Not Detect); Barbiturates, Urine POSITIVE (Not Detect); Basophils Absolute Auto 0.1 X10*3/uL (0.0-0.2); Basophils Percent Auto 0.9 % (0-2); Benzodiazepines Screen Urine Not Detected (Not Detect); Cannabinoid Screen Urine Not Detected (Not Detect); Cocaine Screen Urine Not Detected (Not Detect); Eosinophils Absolute Auto 0.1 X10*3/uL (0.0-0.4); Eosinophils Percent Auto 0.9 % (0-4); Fentanyl, urine Not Detected (Not Detect); Hemoglobin 11.4 g/dl (14.0-18.0); Imm Gran Abs Auto 0.02 X10*3/uL (0.00-0.03); Imm Gran Pct Auto 0.3 % (0.0-0.4); Lymphocytes Absolute Auto 1.3 X10*3/uL (1.2-4.9); Mean Corpuscular HGB Conc 32.6 g/dl (31.0-36.0); Mean Corpuscular Hemoglobin 33.7 pg (27.0-33.0); Mean Corpuscular Volume 103.6 fL (80.0-98.0); Mean Platelet Volume 10.4 fL (9.4-12.4); Monocytes Absolute Auto 0.9 X10*3/uL (0.1-1.2); Monocytes Percent Auto 14.7 % (2-11); Neutrophils Absolute Auto 3.6 x10*3/uL (2.0-8.3); Neutrophils Percent Auto 61.2 % (45-73); Opiate Screen Urine Not Detected (Not Detect); Phencyclidine Screen Urine Not Detected (Not Detect); Platelet Count 141 X10*3/uL (160-400); Red Blood Count 3.38 X10*6/uL (4.60-5.80); Red Cell Distribution Width 16.8 % (11.0-16.0); White Blood Count 5.9 X10*3/uL (4.8-10.8)
[2023-09-12 12:39] LABS: Alanine Aminotransferase 21 U/L (0-40); Albumin Level 3.7 g/dL (3.5-5.0); Alkaline Phosphatase 137 U/L (39-117); Anion Gap 15 (12-20); Aspartate Amino Transferase 29 U/L (5-37); Bilirubin Direct 0.9 mg/dL (0.0-0.5); Bilirubin Total 1.7 mg/dL (0.0-1.0); Blood Urea Nitrogen 14 mg/dL (9-16); Calcium 9.1 mg/dL (8.4-10.2); Carbon Dioxide 31 mmol/L (22-29); Chloride 95 mmol/L (96-108); Creatinine Clr Calc Pharmacy 63.1; Estimated Glomerular Filt Rate 49; Glucose Random 86 mg/dL (60-115); Potassium 3.1 mmol/L (3.3-5.1); Sodium 138 mmol/L (135-145); Total Protein 6.5 g/dL (6.5-8.0)
--- NOTE | 2023-09-12 12:43 | ECG_ITS ---
Test Reason : MED CLEARANCE Blood Pressure : / mmHG Vent. Rate : 098 BPM Atrial Rate : 000 BPM P-R Int : 000 ms QRS Dur : 108 ms QT Int : 324 ms P-R-T Axes : 000 028 223 degrees QTc Int : 413 ms Atrial fibrillation with premature ventricular or aberrantly conducted complexes Anterior infarct (cited on or before 10-SEP-2023) Abnormal ECG When compared with ECG of 10-SEP-2023 01:40, No significant change was found Referred By: Brianna Martinez Electronically Signed By:BJ FLORES MD
[2023-09-12] MEDS: Potassium Chloride ER 20 MEQ TAB.ER.PRT PO (13:24)
== END 2023-09-12 13:26 | disposition home or self-care (01) ==
PROVIDERS: Nurse Practitioner Family; Emergency Provider Student in an Organized Health Care Education/Training Program
DX: F10.229 Alcohol dependence with intoxication, unspecified (principal); I48.91 Unspecified atrial fibrillation; Y90.8 Blood alcohol level of 240 mg/100 ml or more; Z79.01 Long term (current) use of anticoagulants; Z79.899 Other long term (current) drug therapy
CPT/HCPCS: 36415; 80048; 80076; 80307; 85025; 93005; 99283

== ENCOUNTER → 2023-09-12 12:43 | Outpatient (BNV) | payer OTHER, SELFPAY | PROVIDERS: Emergency Provider Student in an Organized Health Care Education/Training Program; Visit Provider Internal Medicine Cardiovascular Disease | DX: F10.20 Alcohol dependence, uncomplicated (principal) | CPT/HCPCS: 93010 ==

== ENCOUNTER 2023-12-14 13:28 | Outpatient (AMB) | payer OTHER, SELFPAY ==
[2023-12-14 13:35] VITALS: BP 120/62; PULSE 76; BMI 31.4
--- NOTE | 2023-12-14 13:35 | A.OFFVIS_ITS ---
Vital Signs 12/14/23 13:35 Height 5 ft 10 in Weight 218 lb 11.177 oz BMI 31.4 BP 120/62 Blood Pressure Location Lt brachial Position Sitting Pulse 76 Pulse Source Pulse Oximeter Intake Visit Reasons: FOLLOW UP Burglar Alarm Inspector Required: No Allergies No Known Allergies [No Known Allergies*] Allergy (Verified 12/14/23 13:36) Medication List - Last Reconciled 12/14/23 by LORE JensenC apixaban (Eliquis) 5 mg PO BID digoxin 0.125 mg PO DAILY empagliflozin (Jardiance) 10 mg PO DAILY folic acid 1 mg PO DAILY furosemide 80 mg See Protocol IVPUSH BID@0900,1800 metoprolol succinate ER (Toprol XL) 50 mg PO DAILY HPI HPI FOLLOW UP: Details: Abner is a 58-year-old male with past medical history hypertension, alcohol abuse, persistent atrial fibrillation with difficult to control heart rate, nonischemic cardiomyopathy, heart failure with reduced EF, who was recently admitted to [facility] with AFib RVR and Congestive heart failure. 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 He signed out AMA the following day prior to any procedure. Today he reports he has been feeling very well since his hospital stay. He says he quit alcohol completely and has been very compliant with his medications. He denies any concerning symptoms. He has no chest discomfort, shortness of breath, heart palpitations, lightheadedness, presyncope, syncope, edema. No bleeding issues reported. Tells me that he has an upcoming job interview near [place] and plans to move out that way within the next month. He says once he is established he will obtain a new hot stick worker in that area. Says he is not interested in the AV node ablation and BUSINESS EDUCATION PROFESSOR D. He tells me that Dr. Baker told him he did not need it. [facility] Medical History Cardiomyopathy Chronic CHF Alcoholism CHF (congestive heart failure) Alcohol dependence with withdrawal Chronic HFrEF (heart failure with reduced ejection fraction) Atrial fibrillation with rapid ventricular response Alcoholic hepatitis HTN (hypertension) Surgical History No pertinent past surgical history Family History Father CAD (coronary artery disease) Mother Atrial fibrillation Social History Household Members: None Housing: Apartment Do you presently have visiting nurse or other home services: No Unable to assess alcohol history related to: Unable to respond Alcohol intake: current Alcohol intake frequency: 3 or more drinks per day Alcohol type: hard liquor Comment: refuses alarms Patient Tobacco Use Status: Never used Tobacco Second Hand Smoke Exposure: No Advance Directives Date on File: 02/12/23 service: No Current occupational status: unemployed Review of Systems Const All systems reviewed & are unremarkable except as noted in HPI and below ENT Denies dizziness Card Denies chest pain, Denies chest pain at rest, Denies chest pain with activity, Denies rapid heart rate, Denies pedal edema, Denies edema, Denies leg edema, Denies lightheadedness, Denies palpitations, Denies dyspnea, Denies dyspnea on exertion and Denies orthopnea Resp Denies cough, Denies dyspnea and Denies dyspnea on exertion GI Denies hematochezia and Denies change in stool character Musc Denies abnormal gait, Denies limited range of motion, Denies muscle cramps, Denies muscle weakness, Denies numbness, Denies radiating pain into limb, Denies stiffness and Denies tingling Neuro Denies abnormal gait, Denies dizziness, Denies numbness and Denies tingling Endo Denies palpitations Physical Exam Vital Signs: Last Vital Signs Pulse 76 12/14/23 13:35 BP 120/62 12/14/23 13:35 BMI result Body Mass Index 31.4 Const General: cooperative, healthy appearing, comfortable and no acute distress Orientation/consciousness: patient oriented x3 Neck Neck: Yes normal visual inspection and Yes no JVD Resp Effort & Inspection: normal respiratory effort Auscultation: clear to auscultation bilaterally, no crackles, no rales, no rhonchi and no wheezes Cardio Jugular venous distension: no JVD Rate: regular rate Rhythm: abnormal rhythm Heart sounds: S1 normal heart sound present, S2 normal heart sound present, no gallops, no murmurs and no rubs Neuro General: patient oriented x3 Extrem General: Yes normal to inspection and No no pedal edema Psych Appearance: grossly normal Mental Status: mental status grossly normal Speech and movement: Normal speech and movement present Assessment & Plan Assessment & Plan (1) Atrial fibrillation with RVR: Code(s): I48.91 - Unspecified atrial fibrillation Category: Medical Plan: History of AFib with difficult to control heart rate. He failed rhythm control with prior cardioversions and antiarrhythmic use. He has had issues with alcohol abuse and likely noncompliance with his medications. Most recently he was admitted to [facility] with AFib RVR, heart failure with reduced EF. He was treated for heart rate control and transferred to [facility] for AV node ablation and BUSINESS EDUCATION PROFESSOR D placement. Once there he signed out AMA the next morning. He was discharged with digoxin 0.125 mg daily, metoprolol XL 150 mg daily. He is on Eliquis for anticoagulation. Last labs 09/08/2023 showed creatinine 1.3. He tells me that has not had any alcohol use since prior to his [facility] admission. He says he has been fully compliant with his medications and has been feeling great recently. His heart rate is documented to be in an acceptable range today, heart tones remain irregularly irregular. Will have him continue on current med management. Digoxin level should be done twice yearly. Will check a Holter monitor if he is agreeable to assess current rate control. He tells me that he is going to get a new hot stick worker out near [place] in the near future. Cardiology follow-up to this office will be as needed. (2) Cardiomyopathy: Code(s): I42.9 - Cardiomyopathy, unspecified Category: Medical Plan: Last echocardiogram done on 05/18/2023 shows EF 15-20%. His cardiomyopathy was thought to be related to AFib RVR versus alcohol abuse. He has had issues with heart failure with reduced EF. He was recently admitted and diuresed. He is currently on Lasix 40 mg daily. He does not appear fluid overloaded on exam today. Continue with daily Lasix. Continue with losartan, metoprolol, Jardiance for neurohormonal modulation. Will check a limited echo to reassess EF. Informed him that he still qualifies for ICD. As long as his heart is weak he is at high risk for sudden cardiac . He states understanding. Plan to call him with test results. (3) Alcohol intoxication: Code(s): F10.929 - Alcohol use, unspecified with intoxication, unspecified Category: Medical Plan: He tells me he is not had any alcohol use in the last 3 months. Applauded on this. (4) Congestive heart failure: Code(s): I50.9 - Heart failure, unspecified Category: Medical Plan: As above (5) HTN (hypertension): Code(s): I10 - Essential (primary) hypertension Category: Medical Plan: Well controlled at present. No med changes made (6) Hospital discharge follow-up: Code(s): Z09 - Encounter for follow-up examination after completed treatment for conditions other than malignant neoplasm Category: Medical Plan: As above. [facility] and [facility] records reviewed Plan Time spent on chart review, documentation, interview and assessment Orders: Orders CA echo limited Today I42.9 - Cardiomyopathy, unspecified ECG 3 day holter monitor Today I48.91 - Unspecified atrial fibrillation Medications: New furosemide 40 mg PO DAILY 90 tabs 0RF losartan 25 mg PO DAILY 90 tabs 0RF Changed From digoxin Need APPT for further Refills. Call office at [phone]. 0.125 mg PO DAILY 90 tabs 0RF To digoxin 0.125 mg PO DAILY 90 tabs 0RF From metoprolol succinate ER (Toprol XL) 50 mg PO DAILY 90 tabs 0RF To metoprolol succinate ER (Toprol XL) Correction to dose 150 mg (3 x 50 mg) PO DAILY 90 days 270 tabs 0RF Refilled empagliflozin (Jardiance) 10 mg PO DAILY 90 tabs 0RF metoprolol succinate ER (Toprol XL) 50 mg PO DAILY 90 tabs 0RF Coding Level of Care Code Est Pt Level 4 (92261) Diagnoses Atrial fibrillation with RVR I48.91 Cardiomyopathy I42.9 Alcohol intoxication F10.929 Congestive heart failure I50.9 HTN (hypertension) I10 Hospital discharge follow-up Z09 Time Spent (min) 36
== END 2023-12-14 14:25 | disposition home or self-care (01) ==
PROVIDERS: Visit Provider Nurse Practitioner Family
DX: I48.91 Unspecified atrial fibrillation (principal); I42.9 Cardiomyopathy, unspecified; F10.929 Alcohol use, unspecified with intoxication, unspecified; I50.9 Heart failure, unspecified; I10 Essential (primary) hypertension; Z09 Encounter for follow-up examination after completed treatment for conditions other than malignant neoplasm
CPT/HCPCS: 99214

== ENCOUNTER → 2023-12-14 13:28 | Outpatient (BNVA) | payer OTHER, SELFPAY | PROVIDERS: Visit Provider Nurse Practitioner Family | DX: Z09 Encounter for follow-up examination after completed treatment for conditions other than malignant neoplasm (principal); I48.19 Other persistent atrial fibrillation; I42.9 Cardiomyopathy, unspecified; I11.0 Hypertensive heart disease with heart failure; I50.9 Heart failure, unspecified; F10.929 Alcohol use, unspecified with intoxication, unspecified | CPT/HCPCS: 99212 ==